=== PATIENT | male | born 1940 | race Caucasian/White ===

== ENCOUNTER → 2018-03-04 06:04 | Outpatient (CLI) | payer MEDICARE, SELFPAY ==
--- NOTE | 2018-03-04 08:54 | STRESSREP_ITS ---
Stress Test Report Date: 03/16/2018 Procedure: Exercise tolerance test/imaging study Indications: Chest pain; CAD; CABG; PCI Consent: Per the patient Procedure: The patient exercised on a Nicho protocol for 5 minutes completing Stage I and 2 minutes of Stage II achieving a peak heart rate of 146 bpm (101 % predicted maximal heart rate) with a peak blood pressure 204/88 mmHg and a peak MET capacity of 7 METs. The baseline ECG demonstrated on his bradycardia. The peak exercise ECG demonstrated approximately 1-[address] segment depression in leads II, III, aVF, and V4 through V6 with gradual resolution towards baseline in recovery. There was a rare PVC and ventricular couplet/triplet during exercise and a rare PAC during recovery. The functional capacity was considered average. There was vague left-sided chest discomfort with spontaneous resolution to baseline in recovery. The examination was discontinued secondary to dyspnea. Impression: 1. Technically adequate (percent predicted maximal heart rate greater than 85% ) exercise tolerance test 2. Peak exercise ECG demonstrated approximately 1-[address] segment depression in leads II, III, aVF, and V4 through V6 with gradual resolution towards baseline in recovery 3. There was a rare PVCs/ventricular couplet/triplet during exercise and a rare PAC during recovery 4. Nuclear images pending Myocardial perfusion imaging study: Technique: The patient was injected with 10.5 mCi of technetium 99m Cardiolite and subsequently rest SPECT Cardiolite nuclear imaging was obtained in the horizontal long, vertical long, and short axis views. The patient exercised on a Nicho protocol for 5 minutes completing Stage I and 2 minutes of Stage II achieving a peak heart rate of 146 bpm (101 % predicted maximal heart rate) with a peak blood pressure 204/88 mmHg and a peak MET capacity of 7 METs. The patient was injected with 31.8 mCi of technetium 99m Cardiolite and subsequently stress SPECT Cardiolite nuclear imaging was obtained in the horizontal long, vertical long, and short axis views. A gated Cardiolite study at peak stress was obtained. Interpretation: Rest and stress SPECT Cardiolite nuclear imaging status post realignment, normalization, and attenuation correction, demonstrates at rest relative uniform tracer uptake and status post stress the appearance of diminished tracer uptake in portions of the distal anterior and anteroapical segments as well as the basal to mid inferior segments. There are similar type findings on the resting and stress polar map images. There is end systolic thickening and brightening. The gated Cardiolite study demonstrates myocardial thickening and inward wall motion. The reported LVEF is 62 %. Impression: 1. Rest and stress SPECT Cardiolite nuclear imaging demonstrate myocardial perfusion changes concerning for stress-induced myocardial ischemia involving portions of the distal anterior and anteroapical segments as well as the basal to mid inferior segments. 2. The gated Cardiolite study reports an LVEF of 62%. This note was generated with EchoFirstation software. It may contain incorrect words, spelling, and punctuation that were not noted in checking the note before signing.
== END ==
PROVIDERS: Family Provider Family Medicine; PCP Family Medicine; Visit Provider Family Medicine
DX: I25.10 Atherosclerotic heart disease of native coronary artery without angina pectoris (principal)
CPT/HCPCS: 78452; 93017; A9500; A4216

== ENCOUNTER → 2018-03-18 08:20 | Outpatient (CLI) | payer MEDICARE, SELFPAY | PROVIDERS: Family Provider Family Medicine; PCP Family Medicine; Visit Provider Family Medicine | DX: R13.10 Dysphagia, unspecified (principal) | CPT/HCPCS: 74220 ==

== ENCOUNTER → 2018-04-14 07:27 | Outpatient (CLI) | payer MEDICARE, SELFPAY ==
--- NOTE | 2018-04-14 07:32 | ECHOD_ITS ---
Reason For Study: S/P CABG Procedure This was a 2D Doppler, Color Flow transthoracic echocardiogram. The study was technically difficult. Contrast injection was performed. Exam performed in department. Left Ventricle Normal LV size. Segmental dysfunction with preserved ejection fraction (see wall motion). The estimated ejection fraction is 60 %. No regional wall motion abnormalities noted. Right Ventricle Normal RV size. Normal systolic function. Atria Normal left atrium. Normal right atrium. No doppler evidence for ASD. Mitral Valve There is no mitral annular calcification. Normal mitral valve. Mild (1+) mitral valve insufficiency. Tricuspid Valve Normal tricuspid valve. Mild tricuspid valve insufficiency. Right ventricular systolic pressure estimated to be 25 mmHg. Aortic Valve Trisinus/trileaflet aortic valve. Normal aortic valve. Pulmonic Valve The pulmonic valve is not well visualized. Great Vessels Normal sized aortic root. Pericardium/Pleural No pericardial effusion. Medication 22 gauge I.V. with prn adaptor inserted into right arm. Diluted definity 5ml given slow IV push to enhance endocardial definition. MMode/2D Measurements & Calculations LVIDd: 5.0 cm IVSd: 0.82 cm Ao root diam: 3.1 cm LVIDs: 3.7 cm LVPWd: 0.91 cm LA dimension: 4.0 cm RVDd: 4.0 cm FS: 27.3 % LAV(MOD-bp): 52.1 ml LVAd ap4: 22.5 cm2 SV(MOD-sp4): 35.0 ml LAV(MOD-bp) Indexed: 26.7 ml/m2 EDV(MOD-sp4): 57.3 ml LAV(MOD-sp2): 65.7 ml EDV(sp4-el): 57.1 ml LAV(MOD-sp4): 39.8 ml LVAs ap4: 11.6 cm2 ESV(MOD-sp4): 22.3 ml ESV(sp4-el): 21.9 ml EF(MOD-sp4): 61.1 % EF(sp4-el): 61.7 % SV(sp4-el): 35.2 ml LA A4 area: 16.6 cm2 RA A4 area: 13.6 cm2 Time Measurements MV dec time: 0.33 sec Doppler Measurements & Calculations MV E max alex: 76.3 cm/sec Lat Peak E' Alex: 9.7 cm/sec Med Peak E' Alex: 6.5 cm/sec MV A max alex: 53.3 cm/sec E/E' lat: 7.8 E/E' med: 11.8 MV E/A: 1.4 Ao V2 max: 112.9 cm/sec LV V1 max: 93.2 cm/sec PA V2 max: 100.0 cm/sec Ao max P.1 mmHg LV V1 max P.5 mmHg TR max alex: 234.8 cm/sec TR max P.1 mmHg Interpretation Summary The study was technically difficult. Contrast injection was performed. Segmental dysfunction with preserved ejection fraction (see wall motion). The estimated ejection fraction is 60 %. Mild (1+) mitral valve insufficiency. Mild tricuspid valve insufficiency. Right ventricular systolic pressure estimated to be 25 mmHg. Transmitral diastolic flow velocities suggest diastolic dysfunction (pseudonormal pattern). Ordering Physician: Isaiah Robert Referring Physician: OSCAR CALDWELL Performed By: Celine Arango, ANDREA, RVT
== END ==
PROVIDERS: Family Provider Family Medicine; PCP Family Medicine; Visit Provider Internal Medicine Cardiovascular Disease
DX: I34.0 Nonrheumatic mitral (valve) insufficiency (principal); Z95.1 Presence of aortocoronary bypass graft
CPT/HCPCS: 93306; Q9957; A4216; C8929

== ENCOUNTER → 2018-04-23 11:26 | Outpatient (CLI) | payer MEDICARE, SELFPAY ==
[2018-04-23 14:23] LABS: Absolute Lymphocyte Count 1.52 X10^3/ul (0.83-4.51); Absolute Neutrophil Count 3.4 X10^3/uL (2.0-7.7); Basophil# 0.04 X10^3/uL; Basophil% 0.7 % (0-1); Eosinophil# 0.41 X10^3/uL; Eosinophils% 6.9 % (0-5); Hematocrit 41.4 % (40-54); Hemoglobin 14.4 g/dl (13.0-16.5); Lymphocyte # 1.52 X10^3/ul (4.0); Lymphocyte % 25.8 % (19-41); Mean Corp Hgb Conc 34.8 g/gl (32-36); Mean Corpuscular Hgb 30.8 pg (27.0-32.0); Mean Corpuscular Volume 88.7 fL (80-94); Mean Platelet Vol. 8.5 fl (6.2-12.0); Monocyte# 0.53 X10^3/uL; Neutrophil # 3.39 X10^3/uL (2.7-7.7); Neutrophil % 57.4 % (47-70); Platelet Count 152 K/mm3 (150-450); RBC Distribution Width CV 13.4 % (11.6-14.6); RBC Distribution Width SD 43.3 fl (35.1-43.9); Red Blood Count 4.67 M/mm3 (4.6-6.2); White Blood Count 5.9 K/mm3 (4.4-11.0)
[2018-04-23 14:25] LABS: POSITIVE COUNT NO; POSITIVE DIFFERENTIAL NO; POSITIVE MORPHOLOGY NO
[2018-04-23 14:54] LABS: ALB/GLOB Ratio 1.2 RATIO (0.9-2.4); AST(SGOT) 18 U/L (15-37); Alanine Aminotransfer ALT/SGPT 24 U/L (16-61); Albumin, Serum 3.9 g/dL (3.2-5.0); Alkaline Phosphatase 73 U/L (45-117); Anion Gap 4 (5-15); BUN 12 mg/dL (7-18); BUN/Creat Ratio 12.7 RATIO (10-20); Calcium,Total 8.6 mg/dL (8.5-10.1); Chloride 109 mmol/L (98-107); Cholesterol 120 mg/dL (200); Creatinine, Serum 0.94 mg/dL (0.70-1.30); EST Glomerular Filtration Rate 83 mL/min (>60); Est Glom Filt Rate - Afr Amer 100 mL/min (>60); Globulin 3.3 g/dL (2.2-4.2); Glucose 91 mg/dL (74-106); High Density Lipoprotein 42 mg/dL; Potassium 4.2 mmol/L (3.5-5.1); Protein, Total 7.2 g/dL (6.4-8.2); Sodium Level 140 mmol/L (136-145); T4 Free Direct 1.23 ng/dL (0.76-1.46); Triglycerides 113 mg/dL; Very Low Density Lipoprotein 23 mg/dL (5-40)
== END ==
PROVIDERS: Family Provider Family Medicine; PCP Family Medicine; Visit Provider Family Medicine
DX: E03.9 Hypothyroidism, unspecified (principal); I25.10 Atherosclerotic heart disease of native coronary artery without angina pectoris
CPT/HCPCS: 36415; 80053; 80061; 84439; 84443; 85025

== ENCOUNTER → 2018-04-27 08:30 | Outpatient (CLI) | payer MEDICARE, SELFPAY ==
[2018-04-27 17:24] LABS: Cytology, Body Fluid / CSF SEE PATHOLOGY REPORT
--- NOTE | 2018-04-28 | CYSPIN_PTH ---
PATIENT: COLLEEN HILL [facility] U#:[id number] AGE/SX: 85/M ROOM: RE04/27/[address]: Dr. Erasto Murphy MD : 1940 BED: DIS: SPEC #: [id number] RECD: 04/28/18 13:44 STATUS: VESTA KIAN #: [id number] KALEE: 04/28/18 00:[address]: Erasto Murphy DEPT: CYTOLOGY RECD BY: Melo James ENTERED: 04/28/18 13:45 SP TYPE: CYSPIN FL OTHR DR: Dr. Tl Guzman MD Tissues: Urine Procedures: Pap Stain (control) Special Stain Group II Cytospin Fluid HEADER OPERATION: Not noted PRE-OP DIAGNOSIS: History bladder CA, hematuria TISSUE SUBMITTED: Urine for cytology DIAGNOSIS CYTOLOGY Urine for cytology (cytospin): Rare degenerated atypical cells noted. Marked acute inflammation. SJ:irene 04/29/18 COMMENT Repeat cytology is suggested if clinically indicated. 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 CYTOLOGY STUDY Slides are reviewed. CYTOLOGY GROSS Received is 40 ml of gold cloudy fluid labeled with the patient's name and and designated per the requisition as urine. Submitted for cytology preparation. / 04/28/18 TC:2 CPT: 98075
== END ==
PROVIDERS: Family Provider Family Medicine; PCP Family Medicine; Referring Provider Urology; Visit Provider Urology
DX: R31.9 Hematuria, unspecified (principal); Z85.51 Personal history of malignant neoplasm of bladder
CPT/HCPCS: 88108; 88313

== ENCOUNTER → 2018-06-17 15:01 | Outpatient (CLI) | payer MEDICARE, SELFPAY ==
[2018-06-17 13:47] VITALS: BMI 24.8
--- NOTE | 2018-06-17 15:05 | RAD_ITS ---
STUDY: X-RAY CHEST REASON FOR EXAM: Male, 78 years old. Heart catheterization next week TECHNIQUE: PA and lateral views of the chest. COMPARISON: 02/24/2016 FINDINGS: The lungs are clear and expanded. There is no demonstrated pleural abnormality. Normal size heart. Sternal wires and mediastinal surgical clips compatible with prior CABG. Normal mediastinum and francia. Normal visualized pulmonary arteries. Normal visualized aortic arch and descending thoracic aorta. Normal visualized thoracic spine. Normal visualized ribs, clavicles, and shoulders. There is no demonstrated abnormality of the visualized soft tissue structures of the upper abdomen. RAD/Chest PA and Lateral IMPRESSION: Stable exam. No acute cardiopulmonary process. Electronically Signed: Clyde Mckinney MD at 9:02 EST , Service support ,
== END ==
PROVIDERS: Family Provider Family Medicine; PCP Family Medicine; Referring Provider Internal Medicine Cardiovascular Disease; Visit Provider Internal Medicine Cardiovascular Disease
DX: R07.9 Chest pain, unspecified (principal); R94.39 Abnormal result of other cardiovascular function study; I25.10 Atherosclerotic heart disease of native coronary artery without angina pectoris; Z95.1 Presence of aortocoronary bypass graft; Z95.5 Presence of coronary angioplasty implant and graft
CPT/HCPCS: 71046

== ENCOUNTER 2018-06-26 07:27 | Day surgery (SDC) | payer MEDICARE, SELFPAY ==
[2018-06-17 13:47] VITALS: BMI 24.8
[2018-06-17 16:49] LABS: Hematocrit 40.5 % (40-54); Hemoglobin 14.7 g/dl (13.0-16.5); Mean Corp Hgb Conc 36.3 g/gl (32-36); Mean Corpuscular Hgb 31.9 pg (27.0-32.0); Mean Corpuscular Volume 87.9 fL (80-94); Mean Platelet Vol. 8.8 fl (6.2-12.0); Platelet Count 177 K/mm3 (150-450); RBC Distribution Width CV 13.5 % (11.6-14.6); RBC Distribution Width SD 41.7 fl (35.1-43.9); Red Blood Count 4.61 M/mm3 (4.6-6.2); White Blood Count 7.3 K/mm3 (4.4-11.0)
[2018-06-17 16:51] LABS: Scan Indicated on CBC? Y/N NO
[2018-06-17 17:03] LABS: International Normalized Ratio 1.1; Prothrombin Time (Protime)PT. 13.8 SECONDS (11.7-14.9)
[2018-06-17 17:04] LABS: Partial Thromboplast Time 29.7 Seconds (24.1-36.2)
[2018-06-17 17:30] LABS: Anion Gap 8 (5-15); BUN 12 mg/dL (7-18); BUN/Creat Ratio 13.3 RATIO (10-20); Calcium,Total 8.6 mg/dL (8.5-10.1); Chloride 108 mmol/L (98-107); EST Glomerular Filtration Rate 87 mL/min (>60); Est Glom Filt Rate - Afr Amer 105 mL/min (>60); Glucose 81 mg/dL (74-106); Potassium 3.9 mmol/L (3.5-5.1); Sodium Level 143 mmol/L (136-145)
[2018-06-25 07:25] VITALS: BMI 24.8
[2018-06-26] VITALS (18 sets, daily range): BP systolic 130–190; BP diastolic 65–88; PULSE 48–59; RESP 13–23; TEMP 36.6–36.9; O2SAT 97–100; BMI 24.6
--- NOTE | 2018-06-26 11:30 | EKG12_ITS ---
Test Reason : POST PCI Blood Pressure : / mmHG Vent. Rate : 054 BPM Atrial Rate : 054 BPM P-R Int : 156 ms QRS Dur : 090 ms QT Int : 448 ms P-R-T Axes : 061 -17 024 degrees QTc Int : 424 ms Sinus bradycardia Otherwise normal ECG Confirmed by KIRBY TRIVEDI, ISAIAH ([id number]), multimedia editor RYAN AYERS ([id number]) on 07/02/2018 3:13:05 PM Referred By: Isaiah Orr Confirmed By:ISAIAH ORR MD
[2018-06-26 11:36] LABS: ACT Activated Clotting Time 224 sec (74-137)
[2018-06-26 11:36] LABS: ACT Activated Clotting Time 219 sec (74-137)
--- NOTE | 2018-06-26 11:44 | CL.I_ITS ---
Patient Name: COLLEEN HILL Study Date: 06/26/2018 Performing: Jian Mccracken MD Ht: 70.07 inches 178 cm : 1940 Wt: 171.96 lbs 78 kg Age: 78 Gender: male BSA: 1.96 PROCEDURE(S) PERFORMED [id number] W OR WO PTCA, SINGLE CORONARY ARTERY CLINICAL PROFILE AND CO-MORBIDITIES Heart Failure: None Stress/Imaging Stress Test w/SPECT MPI: Yes Result: Positive High Risk Stress Test with SPECT MPI : Positive High Risk Angina Classification Anginal Classification w/in 2 Weeks: CCS III CAD Presentations: Stable angina. CONCLUSIONS Succesful CHANDAN Mid D1 using Resolute Integrity 2.25x18 mm RECOMMENDATIONS ASA Indefinitley Plavix for at least 12 months INTERVENTION INFORMATION LESION SITE: 1st Diagonal (Mid) Lesion Complexity: Non-High/Non-C Pre Stenosis: 90 % Pre intervention MERLYN flow: 3 Post Stenosis: 0 % Post intervention MERLYN flow: 3 Lesion Devices: Cordis 6 Fr XB3.5 100cm Guide Catheter Terumo .014 Runthrough Extra Floppy 180cm straight Medtronic Resolute RX CHANDAN 2.25x18 Daniel Sci NC EMERGE MR 2.25x15 BALLOON COMPLICATIONS No Complications PROCEDURE MEDICATIONS Versed 1 mg IV Versed 1 mg IV Oxygen: 2 L/min via nasal cannula Heparin 6000 unit(s) IV 06/26/2018 11:02:31 Heparin 2000 unit(s) IV 06/26/2018 11:08:57 Plavix 300 mg PO 06/26/2018 11:29:56 SUMMARY OF HEMODYNAMIC DATA Time AIR REST ECG 07:49:22 AO 157/54 (95) SA 10:00:43 LV 138/-1, 18 10:25:58 LV 137/-1, 18 10:26:04 LV 147/0, 21 10:28:45 LVp 147/-8, 15 10:29:16 AOp 151/58 (94) 10:29:22 AO 131/50 (79) 10:29:34 Signed By Jian Mccracken MD On 06/26/2018 11:43:26 Jian Mccracken MD
[2018-06-26] MEDS: 0.9% Normal Saline 1,000 ML 100 ML IV (12:12)
--- NOTE | 2018-06-26 12:14 | NURSING ---
BEDSCALE NOT WORKING PROPERLY
[2018-06-26] MEDS: Ramipril 10 MG Capsule PO (13:36)
--- NOTE | 2018-06-26 13:56 | CRPHASE1 ---
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 Risk Factors/Lifestyle Smoking Status: Former smoker Hx Hypertension: Yes Hx Diabetes Mellitus Type 1: No Hx Diabetes Mellitus Type 2: No Hx Metabolic Disorders: No Hx Dyslipidemia: Yes Hx Obesity: No Height: 5 ft 10 in - BMI 24.7 Stress: Home/Family Risk Factor for Sedentary Lifestyle: Moderate Risk Family History: Family History (Last Reviewed 03/25/18 @ 13:55 by Angélica Howard) Father CAD (coronary artery disease) Myocardial infarction, Onset Age: 56 Grandmother Heart disease Uncle Heart disease Past Cardiac Illness: Coronary Artery Disease, Previous PCI w/Stent, Coronary Artery Bypass Graft Phase I Education Given On:: [place], Nutrition, Antiplatelet medication Issues Affecting Care:: None Knowledge of Condition:: Yes Learning Preferences: Verbal, Written Hospital Course Presenting Symptoms:: CHEST PAIN Medical/Surgical History WI:: No CAD:: Yes Cardiomyopathy:: No Diabetes:: No Hypertension:: Yes Dyslipidemia:: Yes Thyroid:: Yes - HYPOTHYROIDISM Other Medical/Surgical Issues:: BLADDER CANCER CABG: Yes PTCA:: Yes Discharge/Home/Social Eval Discharge Disposition: Home
--- NOTE | 2018-06-26 13:59 | CRPHASE1_ITS ---
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 Risk Factors/Lifestyle Smoking Status: Former smoker Hx Hypertension: Yes Hx Diabetes Mellitus Type 1: No Hx Diabetes Mellitus Type 2: No Hx Metabolic Disorders: No Hx Dyslipidemia: Yes Hx Obesity: No Height: 5 ft 10 in - BMI 24.7 Stress: Home/Family Risk Factor for Sedentary Lifestyle: Moderate Risk Family History: Family History (Last Reviewed 03/25/18 @ 13:55 by Angélica Howard) Father CAD (coronary artery disease) Myocardial infarction, Onset Age: 56 Grandmother Heart disease Uncle Heart disease Past Cardiac Illness: Coronary Artery Disease, Previous PCI w/Stent, Coronary Artery Bypass Graft Phase I Education Given On:: [place], Nutrition, Antiplatelet medication Issues Affecting Care:: None Knowledge of Condition:: Yes Learning Preferences: Verbal, Written Hospital Course Presenting Symptoms:: CHEST PAIN Medical/Surgical History HI:: No CAD:: Yes Cardiomyopathy:: No Diabetes:: No Hypertension:: Yes Dyslipidemia:: Yes Thyroid:: Yes - HYPOTHYROIDISM Other Medical/Surgical Issues:: BLADDER CANCER CABG: Yes PTCA:: Yes Discharge/Home/Social Eval Discharge Disposition: Home
--- NOTE | 2018-06-26 14:00 | CRPH1.INST_ITS ---
General Education CAD and cardiac anatomy and function:: Patient communicates acknowledgment Explanation of diagnoses and procedures:: Patient communicates acknowledgment Sign/Symptoms of VA:: Patient communicates acknowledgment Antiplatelet therapy: Patient communicates acknowledgment Proper use of NTG-SL: Not instructed Emergency procedures and activation of EMS: Patient communicates acknowledgment Compliance of all prescribed medications: Patient communicates acknowledgment Smoking Recommendations Include:: Previous smoker; encourage continued cessation Nicotine/Smoking Response Code:: Patient communicates acknowledgment Dyslipidemia Patient Dyslipidemia Risk Factors Are:: Total Cholesterol, Triglycerides, HDL, LDL Recommendations Include:: Lipid profile provided, Reviewed NCEP/ATP guidelines, Therapeutic Lifestyle Change dietary guidelines Dyslipidemia Response Code:: Patient communicates acknowledgment Overweight/Obesity Patient Overweight/Obesity Risk Factors Are:: BMI Normal [18-25 & < 65 years old] Hypertension Recommendations Include:: Maintain BP <130/85, DASH dietary guidelines, Decrease/maintain normal body weight, Moderation of ETOH Hypertension:: Patient communicates acknowledgment Heart Disease Patient Heart Disease Risk Factors Are:: Previous cardiac event Heart Disease Response Code:: Patient communicates acknowledgment Diabetes Patient Diabetes Risk Factors Are:: No documented hx of diabetes Metabolic Syndrome Recommendations Include:: Does not meet criteria Sedentary Patient Sedentary Risk Factors Are:: Lack of regular exercise Recommendations Include:: Aerobic exercise 5-7 times/week for 20-30 minutes continuously, Benefits of regular exercise, Discussed home walking program, Mo nitored Outpatient Cardiac Rehab Sedentary Response Code:: Patient communicates acknowledgment Stress Recommendations Include:: Identification of stressors, and assessment of coping skills, Stress management techniques Stress Response Code:: Patient communicates acknowledgment
--- NOTE | 2018-06-26 15:27 | CL.D_ITS ---
Patient Name: COLLEEN HILL Study Date: 06/26/2018 Performing: Isaiah Robert MD Ht: 70 inches 178 cm : 1940 Wt: 172.2 lbs 78 kg Age: 78 Gender: male BSA: 1.96 PROCEDURE(S) PERFORMED ZH50-VZM/COR/LV/CABG [id number] W OR WO PTCA, SINGLE CORONARY ARTERY CLINICAL PROFILE AND INDICATIONS Indications: Suspected CAD Heart Failure: None Stress/Imaging Stress Test w/SPECT MPI: Yes Result: Positive High RiskStress Test with SPECT MPI: Positive High Risk Angina Classification Anginal Classification w/in 2 Weeks: CCS III CAD Presentations: Stable angina. Stable angina. CONCLUSIONS Elevated Left Ventricular End Diastolic Pressure Segmented LV systolic dysfunction- Mild LVEF: by LV gram 55 % [place] Multivessel CAD SLOAN to LAD: patent SVG to DX: occluded SVG to RCA: occluded RECOMMENDATIONS Risk factor modification Medical therapy Referred for immediate PCI DESCRIPTION OF PROCEDURE The patient arrived to the procedure lab. The risks and benefits of the procedure as well as a full d escription of our services here and current unavailability of surgical backup were fully explained to the patient and/or their significant other prior to the catheterization. The Timeout was completed, verifying the correct patient and procedure. The patient's procedural site was prepped and draped in the usual fashion. Local anesthetic was given subcutaneously to right groin region with Lidocaine 2%. Using a modified Seldinger technique, arterial access was obtained via the right femoral artery, a 4 Fr sheath was inserted Left Coronary Artery selective angiography was performed in multiple views us ing a 4 Fr. JL4 catheter. Right Coronary Artery selective angiography was then performed in multiple views using a 4 Fr. JR4 catheter. Left internal mammary artery graft to the LAD selective angiography was performed in multiple views using a 4 Fr. JR4 catheter. Left Ventriculography was performed in CLARK projection using a 4 Fr. Pigtail catheter. LV to AO pullback pressures were then rec orded.Contrast was injected through the sheath and the Right Iliac and Femoral artery were assessed f or possible closure device.The arterial sheath was pulled and a Perclose closure device was deployed for hemostasis CORONARY ANGIOGRAPHY DOMINANCE: Right Dominant LEFT HEART ASSESSMENT Left Ventricular Ejection Fraction: by LV Gram 55 % Inferior Basal Hypokinesis Elevated Left Ventricular End Diastolic Pressure LVEDP: 18 mmHg LEFT MAIN: Mild luminal irregularities, Distal: 25 % Stenosis LEFT ANTERIOR DECENDING ARTERY: MID LAD: is occluded DIAGONAL 1: Proximal - Mild luminal irregularities, Mid - 85 % Stenosis CIRCUMFLEX ARTERY: PROX CIRC: Mild luminal irregularities OM 1: Proximal - Mild luminal irregularities RIGHT CORONARY ARTERY: PROX RCA: Previously placed stent is occluded DISTAL RCA: Fills from Bridging Collaterals and Left to Right Collaterals GRAFTS: SLOAN graft to the Mid LAD is patent Saphenous Vein graft to the 1st Diagonal is totally occluded Saphenous Vein graft to the RCA is totally occluded COLLATERAL FLOW: Collateral flow from Right to Right Collateral flow from Left to Right VALVE FINDINGS: Normal Aortic Valve function Normal Mitral Valve function AORTIC ROOT: Angiographically normal COMPLICATIONS No Complications PROCEDURE MEDICATIONS Versed 1 mg IV Versed 1 mg IV Oxygen: 2 L/min via nasal cannula Heparin 6000 unit(s) IV 06/26/2018 11:02:31 Heparin 2000 unit(s) IV 06/26/2018 11:08:57 Plavix 300 mg PO 06/26/2018 11:29:56 SUMMARY OF HEMODYNAMIC DATA Time AIR REST ECG 07:49:22 AO 157/54 (95) SA 10:00:43 LV 138/-1, 18 10:25:58 LV 137/-1, 18 10:26:04 LV 147/0, 21 10:28:45 LVp 147/-8, 15 10:29:16 AOp 151/58 (94) 10:29:22 AO 131/50 (79) 10:29:34 Signed By Isaiah Robert MD On 06/26/2018 15:27:22 Isaiah Robert MD
--- NOTE | 2018-06-26 17:02 | NURSING ---
held pressure on right groin site for 20 minutes patient tolerated well new dressing applied
[2018-06-26] MEDS: Atorvastatin Calcium 10 MG Tablet PO (21:16)
[2018-06-27] VITALS (13 sets, daily range): BP systolic 149–175; BP diastolic 58–89; PULSE 52–78; RESP 13–21; TEMP 36.6–36.7; O2SAT 93–99
[2018-06-27 05:11] LABS: Hematocrit 38.5 % (40-54); Hemoglobin 13.9 g/dl (13.0-16.5)
[2018-06-27 05:32] LABS: Anion Gap 8 (5-15); BUN 10 mg/dL (7-18); BUN/Creat Ratio 10.5 RATIO (10-20); Calcium,Total 8.4 mg/dL (8.5-10.1); Chloride 111 mmol/L (98-107); Creatinine, Serum 0.96 mg/dL (0.70-1.30); EST Glomerular Filtration Rate 81 mL/min (>60); Est Glom Filt Rate - Afr Amer 98 mL/min (>60); Estimated Creatinine Clearance 66.54 ml/min; Glucose 94 mg/dL (74-106); Potassium 4.1 mmol/L (3.5-5.1); Sodium Level 143 mmol/L (136-145)
[2018-06-27] MEDS: Levothyroxine 100 MCG Tablet PO (05:51)
--- NOTE | 2018-06-27 09:21 | PCM.DC ---
- Discharge Diagnoses Current Active Problems: CAD s/p remote CABG s/p remote PCI s/p recent PCI Reason(s) for Visit for Discharge Instructions: Cardiac catheterization and PCI You will use the following diet at home:: Cardiac Your food should be the consistency of: Regular Discharge Activity: May Not Drive - May Not Drive: x 48 hours, May Shower May resume sexual activity in: 2 weeks Weight Bearing Status: - - Avoid heavy exertional activity x 7 days and then resume activity as tolerated Call your doctor if your incision/area has: Continuous Slow Oozing, Sudden Increased Bleeding, Increased Redness, Foul Smelling Discharge, Swelling at the incision site Call your doctor if you observe: Fever of 101 or Higher, Shortness of breath, Dizziness, Fainting spells, Chest pain, Increased palpitations (irregular heartbeat) Change Dressing in (Days):: 1 Cleanse incision/area with: Soap & Water Additional Instructions: Stop Simvastatin when Atorvastatin arrives and then start Atorvastatin. Change Ramapril to 10 mg by mouth twice a day Allergies/Adverse Reactions: Allergies No Known Allergies Allergy (Verified 06/17/18 13:48) Medications to take at Discharge Levothyroxine [Synthroid] 100 mcg PO DAILY 02/24/16 Isosorbide Mononitrate [Isosorbide Mononitrate ER] 30 mg PO DAILY 11/03/16 Metoprolol Succinate [Toprol Xl] 50 mg PO QHS 11/03/16 aspirin 81 mg tablet,delayed release 81 mg PO QDAY 03/18/18 desonide 0.05 % lotion 1 applic TOPICAL BID PRN 03/18/18 clopidogrel 75 mg tablet 75 mg PO DAILY #30 tab 06/17/18 Aspirin E.C. [Ecotrin] 81 mg PO DAILY@0800 tablet 06/27/18 Atorvastatin Calcium [Lipitor] 40 mg PO QHS #90 tablet 06/27/18 Clopidogrel Bisulfate [Plavix] 75 mg PO DAILY tablet 06/27/18 Ramipril [Altace] 10 mg PO BID #180 capsule 06/27/18 The following prescriptions were given: Atorvastatin Calcium [Lipitor] 40 mg PO QHS #90 tablet Ramipril [Altace] 10 mg PO BID #180 capsule Primary Care Physician: Robson Guzman MD [Primary Care Provider] - Test Results: Test results from this visit will be discussed in further detail at your follow-up appointment, if applicable. Please Follow Up With: Isaiah Robert MD When: [facility] to arrange the follow up appointment
--- NOTE | 2018-06-27 09:31 | DCINST_ITS ---
- Discharge Diagnoses Current Active Problems: CAD s/p remote CABG s/p remote PCI s/p recent PCI Reason(s) for Visit for Discharge Instructions: Cardiac catheterization and PCI You will use the following diet at home:: Cardiac Your food should be the consistency of: Regular Discharge Activity: May Not Drive - May Not Drive: x 48 hours, May Shower May resume sexual activity in: 2 weeks Weight Bearing Status: - - Avoid heavy exertional activity x 7 days and then resume activity as tolerated Call your doctor if your incision/area has: Continuous Slow Oozing, Sudden In creased Bleeding, Increased Redness, Foul Smelling Discharge, Swelling at the incision site Call your doctor if you observe: Fever of 101 or Higher, Shortness of breath, Dizziness, Fainting spells, Chest pain, Increased palpitations (irregular heartbeat) Change Dressing in (Days):: 1 Cleanse incision/area with: Soap & Water Additional Instructions: Stop Simvastatin when Atorvastatin arrives and then start Atorvastatin. Change Ramapril to 10 mg by mouth twice a day Allergies/Adverse Reactions: Allergies No Known Allergies Allergy (Verified 06/17/18 13:48) Medications to take at Discharge Levothyroxine [Synthroid] 100 mcg PO DAILY 02/24/16 Isosorbide Mononitrate [Isosorbide Mononitrate ER] 30 mg PO DAILY 11/03/16 Metoprolol Succinate [Toprol Xl] 50 mg PO QHS 11/03/16 aspirin 81 mg tablet,delayed release 81 mg PO QDAY 03/18/18 desonide 0.05 % lotion 1 applic TOPICAL BID PRN 03/18/18 clopidogrel 75 mg tablet 75 mg PO DAILY #30 tab 06/17/18 Aspirin E.C. [Ecotrin] 81 mg PO DAILY@0800 tablet 06/27/18 Atorvastatin Calcium [Lipitor] 40 mg PO QHS #90 tablet 06/27/18 Clopidogrel Bisulfate [Plavix] 75 mg PO DAILY tablet 06/27/18 Ramipril [Altace] 10 mg PO BID #180 capsule 06/27/18 The following prescriptions were given: Atorvastatin Calcium [Lipitor] 40 mg PO QHS #90 tablet Ramipril [Altace] 10 mg PO BID #180 capsule Primary Care Physician: Robson Guzman MD [Primary Care Provider] - Test Results: Test results from this visit will be discussed in further detail at your follow- up appointment, if applicable. Please Follow Up With: Isaiah Robert MD When: [facility] to arrange the follow up appointment
--- NOTE | 2018-06-27 09:39 | DS.PCM_ITS ---
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 He underwent cardiac catheterization on 06/26/18 which subsequently lead to additional PCI/stent of the diagonal branch system (please see official report). He was monitored overnight in the ICU. He remain symptomatically and hemodynamically stable with no new acute changes in labs, cardiac rhythm, or ECG. on 06/27/18 he was considered stable for discharge home for continued outpatient follow up. [] Subjective: This is a 78 yo white male who appears to be resting comfortably at this time. - Physical Exam General: Alert, Oriented x3, Cooperative, No apparent distress HEENT: Atraumatic, PERRLA, EOMI, Normocephalic Oral: Moist Mucosa Neck: Supple, No JVD Lungs: Clear to auscultation Cardiovascular: Regular Rhythm, Normal S1, Normal S2 Abdomen: Bowel Sounds Present, Soft, Non Tender Extremities: No clubbing, No cyanosis, No edema Neurological: Neuro grossly intact Psych/Mental Status: Normal Affect Vital Signs Temp Pulse Resp BP Pulse Ox 98.0 F 59 L 20 H 156/75 H 99 06/27/18 09:00 06/27/18 09:00 06/27/18 09:00 06/27/18 09:00 06/27/18 09:00 Oxygen Delivery Method Room Air Weight: 170 lb 6.677 oz Body Mass Index (BMI) 24.6 Intake and Output for Last 24 Hours 06/25/18 06/26/18 06/27/18 23:59 23:59 23:59 Intake Total 1029 / 1029 871 / 871 Output Total 600 / 600 1400 / 1400 Balance 429 / 429 -529 / -529 Laboratory Tests Past 24 Hrs 06/26/18 06/26/18 06/27/18 11:04 11:25 04:45 Hgb 13.9 Hct 38.5 L Activated Clotting Time 224 H 219 H Sodium Potassium Chloride Carbon Dioxide Anion Gap BUN Creatinine Estim Creat Clear Calc Est GFR (MDRD) Af Amer Est GFR (MDRD) Non-Af BUN/Creatinine Ratio Glucose Calcium 06/27/18 04:45 Hgb Hct Activated Clotting Time Sodium 143 Potassium 4.1 Chloride 111 H Carbon Dioxide 24.0 Anion Gap 8 BUN 10 Creatinine 0.96 Estim Creat Clear Calc 66.54 Est GFR (MDRD) Af Amer 98 Est GFR (MDRD) Non-Af 81 BUN/Creatinine Ratio 10.5 Glucose 94 Calcium 8.4 L Discharge Diet: - - Cardiac Diet Discharge Activity: May Not Drive - May Not Drive: x 48 hours, May Shower May resume sexual activity in: 2 weeks Weight Bearing Status: - - Avoid heavy exertional activity x 7 days and then resume activity as tolerated Call your doctor if your incision/area has: Continuous Slow Oozing, Sudden Increased Bleeding, Increased Redness, Foul Smelling Discharge, Swelling at the incision site Call your doctor if you observe: Fever of 101 or Higher, Shortness of breath, Dizziness, Fainting spells, Chest pain, Increased palpitations (irregular heartbeat) Change Dressing in (Days):: 1 Cleanse incision/area with: Soap & Water Home Medications: Medications to take at Discharge Levothyroxine [Synthroid] 100 mcg PO DAILY 02/24/16 Isosorbide Mononitrate [Isosorbide Mononitrate ER] 30 mg PO DAILY 11/03/16 Metoprolol Succinate [Toprol Xl] 50 mg PO QHS 11/03/16 aspirin 81 mg tablet,delayed release 81 mg PO QDAY 03/18/18 desonide 0.05 % lotion 1 applic TOPICAL BID PRN 03/18/18 clopidogrel 75 mg tablet 75 mg PO DAILY #30 tab 06/17/18 Aspirin E.C. [Ecotrin] 81 mg PO DAILY@0800 tablet 06/27/18 Atorvastatin Calcium [Lipitor] 40 mg PO QHS #90 tablet 06/27/18 Clopidogrel Bisulfate [Plavix] 75 mg PO DAILY tablet 06/27/18 Ramipril [Altace] 10 mg PO BID #180 capsule 06/27/18 Following Prescrptions Were Given to Patient: Atorvastatin Calcium [Lipitor] 40 mg PO QHS #90 tablet Ramipril [Altace] 10 mg PO BID #180 capsule Primary Care Physician: Robson Guzman MD [Primary Care Provider] - Please Follow Up With: Isaiah Robert MD When: [facility] to arrange the follow up appointment Minutes spent on discharge:: 30 Patient Condition:: Stable Medical Necessity - Tobacco Use Smoking Status: Former smoker Tobacco Use: Non-smoker Meaningful Use Info Meaningful Use Diagnoses (Choose all that apply): None applicable
[2018-06-27] MEDS: Ramipril 10 MG Capsule PO (09:46)
[2018-06-27] MEDS: Clopidogrel Bisulfate 75 MG Tablet PO (09:46)
[2018-06-27] MEDS: Isosorbide Mononitrate 30 MG Tablet PO (09:46)
[2018-06-27] MEDS: Aspirin E.C. 81 MG Tablet PO (09:46)
--- NOTE | 2018-06-27 10:00 | EKG12_ITS ---
Test Reason : AM Blood Pressure : / mmHG Vent. Rate : 055 BPM Atrial Rate : 055 BPM P-R Int : 150 ms QRS Dur : 084 ms QT Int : 466 ms P-R-T Axes : 051 -18 037 degrees QTc Int : 445 ms Sinus bradycardia Otherwise normal ECG Confirmed by KIRBY TRIVEDI, ISAIAH ([id number]), assignment editor RYAN AYERS ([id number]) on 07/02/2018 3:02:25 PM Referred By: Isaiah Orr Confirmed By:ISAIAH ORR MD
--- OUTSIDE RECORDS SUMMARY | 2018-08-21 01:15 | XMS RPT_ITS ---
:1940 Author Organization OHIP Support Name Relationship Address Phone CHALOXOCHITLNOMANANGELIKA Unavailable [address] + [place] [address] CROFTCHECK, SHAREE Unavailable [address] + [place] [address] R Unavailable Unavailable Unavailable ANGELIKA RANDOLPH Unavailable [address] + [place] [address] CROFTCHECK, SHAREE Unavailable [address] + [place] [address] R Unavailable Unavailable Unavailable ANGELIKA RANDOLPH Unavailable [address] + [place] [address] CROFTCHECK, SHAREE Unavailable [address] + [place] [address] R Unavailable Unavailable Unavailable ANGELIKA RANDOLPH Unavailable [address] + [place] [address] CROFTCHECK, SHAREE Unavailable [address] + [place] [address] R Unavailable Unavailable Unavailable ANGELIKA RANDOLPH Unavailable [address] + [place] [address] CROFTCHECK, SHAREE Unavailable [address] + [place] [address] R Unavailable Unavailable Unavailable ANGELIKA RANDOLPH Unavailable [address] + [place] [address] CROFTCHECK, SHAREE Unavailable [address] + [place] [address] R Unavailable Unavailable Unavailable ANGELIKA RANDOLPH Unavailable [address] + [place] [address] CHALOFTCHECK, SHAREE Unavailable [address] + [place] [address] R Unavailable Unavailable Unavailable ANGELIKA RANDOLPH Unavailable [address] + [place] [address] CROFTCHECK, SHAREE Unavailable [address] + [place] [address] R Unavailable Unavailable Unavailable ANGELIKA RANDOLPH Unavailable [address] + [place] [address] CROFTCHECK, SHAREE Unavailable [address] + [place] [address] R Unavailable Unavailable Unavailable ANGELIKA RANDOLPH Unavailable [address] + [place] [address] CROFTCHECK, SHAREE Unavailable [address] + [place] [address] R Unavailable Unavailable Unavailable ANGELIKA RANDOLPH Unavailable [address] + [place] [address] CROFTCHECK, SHAREE Unavailable [address] + [place] [address] R Unavailable Unavailable Unavailable ANGELIKA RANDOLPH Unavailable [address] + [place] [address] CROFTCHECK, SHAREE Unavailable [address] + [place] [address] R Unavailable Unavailable Unavailable ANGELIKA RANDOLPH Unavailable [address] + [place] [address] CROFTCHECK, SHAREE Unavailable [address] + [place] [address] R Unavailable Unavailable Unavailable ANGELIKA RANDOLPH Unavailable [address] + [place] [address] CROFTCHECK, SHAREE Unavailable [address] + [place] [address] R Unavailable Unavailable Unavailable DANI RANDOLPHA Unavailable [address] + [place] [address] CROFTCHECK, SHAREE Unavailable [address] + [place] [address] R Unavailable Unavailable Unavailable Care Team Providers Name Role Phone FABIOLA HARRIS Attending Unavailable Malik Avalos Attending Unavailable Oscar Guzman Referring Unavailable Oscar Guzman Attending Unavailable Oscar Guzman Primary Care Unavailable Ranney, Christopher Referring Unavailable Ranney, Oscar Attending Unavailable Ranney, Christopher Referring Unavailable Ranney, Exeter Primary Care Unavailable Angélica Howard Attending Unavailable Moodispaw, Isaiah Attending Unavailable Ranney, Christtylerer Referring Unavailable Ranney, Exeter Primary Care Unavailable Moodispaw, Isaiah Attending Unavailable Javierney, Christtylerer Referring Unavailable Moodispaw, Isaiah Attending Unavailable Moodispaw, Isaiah Referring Unavailable [facility] Unavailable Ranney, Oscar Attending Unavailable Ranney, Exeter Primary Care Unavailable Jeffrey, Erasto Zhou Attending Unavailable Jeffrey, Erasto Zhou Referring Unavailable Ranney, [facility] Unavailable Moodispaw, Isaiah Attending Unavailable Moodispaperir, Isaiah Referring Unavailable Angélica Marrero Attending Unavailable Ranney, Boner Referring Unavailable Moodispaw, Isaiah Attending Unavailable Moodispaw, Isaiah Referring Unavailable Ranney, [facility] Unavailable Moodispaw, Isaiah Attending Unavailable Moodispaw, Isaiah Referring Unavailable Ranney, Exeter Primary Care Unavailable Moodispaw, Isaiah Attending Unavailable Moodispaw, Isaiah Referring Unavailable Ranney, [facility] Unavailable Moodispaw, Isaiah Consulting Unavailable Ranney, Oscar Attending Unavailable Ranlake crystal, Exeter Primary Care Unavailable PROBLEMS PROBLEMS DATE TYPE CONDITION / CODE ATTENDING STATUS SOURCE 06/27/2018 Unknown I25.10 - Isaiah Orr Atherosclerotic heart Community disease of [facility] coronary artery Repository without angina pectoris / I25.10(ICD-10) 06/27/2018 Unknown Z95.5 - Presence of Isaiah Orr Active [facility] coronary angioplasty Community implant and graft / Hospital Z95.5(ICD-10) Repository 06/27/2018 Unknown Z95.1 - Presence of Isaiah Orr Active Jason aortocoronary bypass Community graft / Z95.1(ICD-10) Hospital Repository 06/27/2018 Unknown R94.39 - Abnormal Isaiah Orr result of other Community cardiovascular Hospital function study / Repository R94.39(ICD-10) 06/27/2018 Unknown R07.9 - Chest pain, Isaiah Orr unspecified / Community R07.9(ICD-10) Hospital Repository 06/17/2018 Unknown I10 - Essential Elida Active Jason (primary) Angélica Marte [facility] hypertension / Hospital I10(ICD-10) Repository 06/17/2018 Unknown E78.5 - Elida Active Jason Hyperlipidemia, Angélica Marte [facility] unspecified / Hospital E78.5(ICD-10) Repository PROCEDURES PROCEDURES No Procedure Records FoundRESULTS RESULTS CARDIOLOGY VISIT Observed: 07/09/2018 Status: F Source: [place] REPORT 4:11 PM [facility] REPOSITORY [facility] [address] [place] [address] OFFICE VISIT Date of Service: 07/09/18 MR#: [id number] Acct: [id number] Name: RUDDY RANDOLPH Rep #: [id number] : 1940 Provider: CEFERINO Avalos Age/Sex: 78/M Location: [facility] Status: Signed HPI HPI Details: RUDDY RANDOLPH, is a 78 M who presents to the office today for a cardiovascular outpatient follow-up. He has a history of coronary artery disease with bypass surgery in 2000. He had an SLOAN to the LAD, SVG to the diagonal, SVG to the RCA. Patient did undergo a PCIx3 to his RCA system in 2001 and drug-eluting stent to mid diagonal 1 in May 2018. He also has a history of hypertension and hyperlipidemia. Pt denies chest, arm, jaw, or neck discomfort. His exercise tolerance is stable. Pt denies symptoms of CHF, palpitations, near syncopal or syncopal episodes. Pt denies edema or claudication issues. Pt. denies orthopnea, PND, myalgia, or unexplainable fatigue. He states lightheadedness and dizziness with quick position changes. His states the patient's breathing has improved and has improved fatigue. 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 [Ecotrin] 81 mg PO DAILY@0800 tab 06/27/18 [Rx Confirmed 07/09/18] atorvastatin 40 mg tablet 40 mg PO QHS #90 tab 06/27/18 [Rx Confirmed 07/09/18] ramipril 10 mg capsule 10 mg PO BID #180 cap 06/30/18 [Rx Confirmed 07/09/18] clopidogrel 75 mg tablet 75 mg PO DAILY #90 tab 07/01/18 [Rx Confirmed 07/09/18] Ejection fraction %: 60 to 64 PFSH Medical History Hyperlipidemia (Chronic) Hypertension (Chronic) 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) Bladder cancer (Chronic) Hypothyroidism (Chronic) Surgical History Presence of stent in coronary artery (Chronic 06/26/18) Presence of aortocoronary bypass graft (Chronic 2000) Postsurgical percutaneous transluminal coronary angioplasty (PTCA) status (Chronic 09/07/01) History of cystoscopy (Resolved) Family History Father CAD (coronary artery disease) Myocardial infarction, Onset Age: 56 Grandmother Heart disease Uncle Heart disease Social History Smoking Status: Former smoker how long ago did patient quit smokin years ago alcohol intake: current alcohol intake frequency: a few times a month Alcohol type: beer details: occasional caffeine: Yes Type: carbonated beverages Number of servings: 2 ROS Const Const: Negative for fatigue, weakness, body ache, fever(s) or chills ENT ENT: Negative for dizziness Cardio Chest Pain: No Palpitations: No Edema: None Muscle aches with walking: None Resp Respiratory: Negative for SOB with activity, SOB at rest, SOB orthopnea\SOB lying down or paroxysmal nocturnal dyspnea GI GI: Negative nausea, black,tarry stools, bright, red blood in stools or vomiting blood/hematemesis : Negative for hematuria or frequent nighttime urination/ nocturia Musc Musc: Negative for muscle aches/ myalgia Skin Skin: Negative non-healing lesions or rash Neuro Neuro: Negative for weakness, dizziness, lightheadedness, near syncope, syncope or orthostatic symptoms Endo Endo: Negative for fatigue Allergy Allergy/Immunology: Negative for rash Cardiology Exam Const Appearance: cooperative, healthy appearing, comfortable and no acute distress Nutritional Appearance: average body habitus and well nourished Orientation: alert, awake and oriented x3 Head Head: normal to inspection Ears: hearing grossly normal bilaterally Nose: external nose normal Face and Sinus: face symmetric Mouth: oral mucosae normal Eyes General: appearance normal, both eyes and all related structures Eyelids: eyelids normal EOM: EOM intact bilaterally Neck Neck: no JVD and normal visual inspection Carotids: normal carotid upstroke Chest Chest inspection: normal inspection of the chest, normal respiratory effort and symmetric chest movement; negative cough Auscultation: Bilateral: Clear to Auscultation Cardio Rate: regular rate Rhythm: regular rhythm Heart sounds: S1 normal and S2 normal; negative rub, gallop or murmur GI GI: normal to inspection Neuro General: alert, awake, oriented x3 and CN's II-XI intact bilaterally Skin Skin: no rashes or lesions noted Extremities Pulses: Normal: Right Posterior Tibial Pulse, Left Posterior Tibial Pulse, Right Radial Pulse, Left Radial Pulse Lower Extremity Edema: None: Bilateral Psych Psychological: normal affect Assessment AND Plan 1. Presence of stent in coronary artery Z95.5 PTCA/Stent x3 of the prox,mid,distal RCA 09/07/01 @ [place]; PCI/CHANDAN to the mid D1 06/26/18 Plan Patient denies any chest pain, arm pain, jaw pain, neck pain, shortness of breath, or fatigue suggestive of angina at this time. We will continue to monitor this. We will not make any medication regimen changes and will continue risk factor modification. He was reminded the importance of aspirin and Plavix therapy with Plavix at least for 1 year. He acknowledged understanding. It was strongly recommended he undergo cardiac rehab. He denies at this time and states that he will go to Health system on a routine basis. He will keep his 3-month appointment and we will evaluate his overall progress. 2. Essential hypertension I10 Plan Patient's blood pressure is well-controlled today in the office. We will continue to monitor this. We will not make any medication regimen changes. 3. Pure hypercholesterolemia E78.00 Plan Lipid panel from March 2018 showed cholesterol: 120, HDL: 42, LDL: 55, and triglycerides: 113. He will continue with current statin medication. We will continue to monitor. 4. Presence of aortocoronary bypass graft Z95.1 SLOAN to LAD, SVG to first diagonal, and SVG to RCA in 2000; Plan Heart catheterization from May 2018 showed SLOAN graft to the Mid LAD is patent, Saphenous Vein graft to the 1st Diagonal is totally occluded, Saphenous Vein graft to the RCA is totally occluded, and collateral flow from Right to Right and collateral flow from Left to Right. He acknowledges improved symptoms. He will continue with current medications and we will continue to monitor. Plan Detail Additional Comments Thank you for allowing us to participate in the patients plan of care, if you have any questions please do not hesitate to call. This note was generated using a voice recognition system and there may be incorrect words, spelling or punctuation that were not noted when reviewing the office note prior to saving. Coding Level of Care Code Off vis,est,level 3 Diagnoses Presence of stent in coronary artery Z95.5 Essential hypertension I10 Hypertension type: essential hypertension Pure hypercholesterolemia E78.00 Hyperlipidemia type: pure hypercholesterolemia Presence of aortocoronary bypass graft Z95.1 Coding Level of Care Code Off vis,est,level 3 Diagnoses Presence of stent in coronary artery Z95.5 Essential hypertension I10 Hypertension type: essential hypertension Pure hypercholesterolemia E78.00 Hyperlipidemia type: pure hypercholesterolemia Presence of aortocoronary bypass graft Z95.1 07/09/18 1611 <Electronically signed by Malik RINALDI> Date Malik RINALDI Cosigner Signature: Date (if applicable) CC: Oscar Guzman MD 12 LEAD ELECTROCARDIOGRAM Observed: 07/02/2018 Status: F Source: [place] 3:13 PM [facility] REPOSITORY [facility] Cardiovascular Services [address] [place] [address] 12 Lead EKG 06/26/18 1156 MR#: [id number] Acct: [id number] Name: RUDDY RANDOLPH Rep #: [id number] : 1940 78 From: Isaiah Orr MD Attending Dr: Isaiah Orr MD Status: DEP SDC Ordering Dr: Jian Mccracken MD Date: 06/26/18 Location: [facility] Sex: M C Admitted: Test Reason : POST PCI Blood Pressure : / mmHG Vent. Rate : 054 BPM Atrial Rate : 054 BPM P-R Int : 156 ms QRS Dur : 090 ms QT Int : 448 ms P-R-T Axes : 061 -17 024 degrees QTc Int : 424 ms Sinus bradycardia Otherwise normal ECG Confirmed by KIRBY TRIVEDI, ISAIAH ([id number]), science editor RYAN AYERS ([id number]) on 07/02/2018 3:13:05 PM Referred By: Isaiah Orr Confirmed By:ISAIAH ORR MD 07/02/18 1513 Date Isaiah Orr MD CC: Jian Mccracken MD; Oscar Guzman MD; Isaiah Orr MD Signed 12 LEAD ELECTROCARDIOGRAM Observed: 07/02/2018 Status: F Source: [place] 3:02 PM [facility] REPOSITORY [facility] Cardiovascular Services [address] [place] [address] 12 Lead EKG 06/27/18 0525 MR#: [id number] Acct: [id number] Name: RUDDY RANDOLPH Rep #: [id number] : 1940 78 From: Isaiah Orr MD Attending Dr: Isaiah Orr MD Status: DEP SDC Ordering Dr: Jian Mccracken MD Date: 06/27/18 Location: [facility] Sex: M C Admitted: Test Reason : AM Blood Pressure : / mmHG Vent. Rate : 055 BPM Atrial Rate : 055 BPM P-R Int : 150 ms QRS Dur : 084 ms QT Int : 466 ms P-R-T Axes : 051 -18 037 degrees QTc Int : 445 ms Sinus bradycardia Otherwise normal ECG Confirmed by KIRBY TRIVEDI, ISAIAH ([id number]), science editor RYAN AYERS ([id number]) on 07/02/2018 3:02:25 PM Referred By: Isaiah Orr Confirmed By:ISAIAH ORR MD 07/02/18 1502 Date Isaiah Orr MD CC: Jian Mccracken MD; Oscar Guzman MD; Isaiah Orr MD Signed THYROID STIM HORMONE Collected: 07/02/2018 Status: F Source: [place] ([facility]) 10:15 AM [facility] REPOSITORY TYPE CODE TESTS RESULT OUT OF RANGE REFERENCE UNITS LAB L501.9520 0.358-3.74 uIU/mL Normal TSH 0.62 Performed By: #### L501.9520 #### [facility] [address] [place], [address] DISCHARGE SUMMARY Observed: 06/27/2018 Status: F Source: [place] 9:41 AM [facility] REPOSITORY [facility] Medical Records Department [address] [place] [address] Discharge Summary 06/27/18 0935 MR#: [id number] Acct: [id number] Name: RUDDY RANDOLPH Rep #: [id number] : 1940 78 From: Isaiah Orr MD PCP: Oscar Guzman MD Status: REG SDC Y Location: ICU ICU06-1 Discharge Date and Diagnosis Date of Admission: 06/26/18 Date of Discharge: 06/27/18 - Primary Discharge Diagnosis CAD s/p remote CABG s/p remote PCI s/p recent PCI - Secondary Discharge Diagnosis Chronic Problems (Last Reviewed 03/25/18 @ 13:55 by Angélica Howard) Hyperlipidemia (Chronic) Hypertension (Chronic) Presence of stent in coronary artery (Chronic 06/26/18) PTCA/Stent x3 of the prox,mid,distal RCA 09/07/01 @ [place]; PCI/CHANDAN to the mid D1 06/26/18 Presence of aortocoronary bypass graft (Chronic 2000) 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) Hospital Course and Treatment Procedures: Cardiac catheterization, - - PCI/STENT Summary of Care Provided: The patient is a 78 year old white male with a past medical history of CAD, s/p remote CABG, s/p remote PCI, who presented for evaluation of an abnormal exercise tolerance test / stress nuclear study for additional evaluation with cardiac catheterization. He underwent cardiac catheterization on 06/26/18 which subsequently lead to additional PCI/stent of the diagonal branch system (please see official report). He was monitored overnight in the ICU. He remain symptomatically and hemodynamically stable with no new acute changes in labs, cardiac rhythm, or ECG. on 06/27/18 he was considered stable for discharge home for continued outpatient follow up. [] Subjective: This is a 78 yo white male who appears to be resting comfortably at this time. - Physical Exam General: Alert, Oriented x3, Cooperative, No apparent distress HEENT: Atraumatic, PERRLA, EOMI, Normocephalic Oral: Moist Mucosa Neck: Supple, No JVD Lungs: Clear to auscultation Cardiovascular: Regular Rhythm, Normal S1, Normal S2 Abdomen: Bowel Sounds Present, Soft, Non Tender Extremities: No clubbing, No cyanosis, No edema Neurological: Neuro grossly intact Psych/Mental Status: Normal Affect Vital Signs Temp Pulse Resp BP Pulse Ox 98.0 F 59 L 20 H 156/75 H 99 06/27/18 09:00 06/27/18 09:00 06/27/18 09:00 06/27/18 09:00 06/27/18 09:00 Oxygen Delivery Method Room Air Weight: 170 lb 6.677 oz Body Mass Index (BMI) 24.6 Intake and Output for Last 24 Hours Intake Total 1029 / 1029 871 / 871 Output Total 600 / 600 1400 / 1400 Balance 429 / 429 -529 / -529 Laboratory Tests Past 24 Hrs Hgb 13.9 Hct 38.5 L Activated Clotting Time 224 H 219 H Sodium Potassium Chloride Hgb Hct Activated Clotting Time Sodium 143 Potassium 4.1 Chloride 111 H Carbon Dioxide 24.0 Discharge Diet: - - Cardiac Diet Discharge Activity: May Not Drive - May Not Drive: x 48 hours, May Shower May resume sexual activity in: 2 weeks Weight Bearing Status: - - Avoid heavy exertional activity x 7 days and then resume activity as tolerated Call your doctor if your incision/area has: Continuous Slow Oozing, Sudden Increased Bleeding, Increased Redness, Foul Smelling Discharge, Swelling at the incision site Call your doctor if you observe: Fever of 101 or Higher, Shortness of breath, Dizziness, Fainting spells, Chest pain, Increased palpitations (irregular heartbeat) Change Dressing in (Days):: 1 Cleanse incision/area with: Soap AND Water Home Medications: Medications to take at Discharge Levothyroxine [Synthroid] 100 mcg PO DAILY 02/24/16 Isosorbide Mononitrate [Isosorbide Mononitrate ER] 30 mg PO DAILY 11/03/16 Metoprolol Succinate [Toprol Xl] 50 mg PO QHS 11/03/16 aspirin 81 mg tablet,delayed release 81 mg PO QDAY 03/18/18 desonide 0.05 % lotion 1 applic TOPICAL BID PRN 03/18/18 clopidogrel 75 mg tablet 75 mg PO DAILY #30 tab 06/17/18 Aspirin E.C. [Ecotrin] 81 mg PO DAILY@0800 tablet 06/27/18 Atorvastatin Calcium [Lipitor] 40 mg PO QHS #90 tablet 06/27/18 Clopidogrel Bisulfate [Plavix] 75 mg PO DAILY tablet 06/27/18 Ramipril [Altace] 10 mg PO BID #180 capsule 06/27/18 Following Prescrptions Were Given to Patient: Atorvastatin Calcium [Lipitor] 40 mg PO QHS #90 tablet Ramipril [Altace] 10 mg PO BID #180 capsule Primary Care Physician: Robson Guzman MD [Primary Care Provider] - Please Follow Up With: Isaiah Orr MD When: [facility] to arrange the follow up appointment Minutes spent on discharge:: 30 Patient Condition:: Stable Medical Necessity - Tobacco Use Smoking Status: Former smoker Tobacco Use: Non-smoker Meaningful Use Info Meaningful Use Diagnoses (Choose all that apply): None applicable 06/27/18940 <Electronically signed by Isaiah Orr MD> Date Isaiah Orr MD Cosigner Signature (if applicable): Date CC: Oscar Guzman MD; Isaiah Orr MD Signed DISCHARGE INSTRUCTION Observed: 06/27/2018 Status: F Source: [place] 9:35 AM [facility] REPOSITORY [facility] Medical Records Department [address] [place] [address] Instructions for Home/Discharge Instructions 06/27/18 09 MR#: [id number] Acct: [id number] Name: RUDDY RANDOLPH Rep #: [id number] : 1940 78 From: Isaiah Orr MD PCP: Oscar Guzman MD Status: REG SDC - Discharge Diagnoses Current Active Problems: CAD s/p remote CABG s/p remote PCI s/p recent PCI Reason(s) for Visit for Discharge Instructions: Cardiac catheterization and PCI You will use the following diet at home:: Cardiac Your food should be the consistency of: Regular Discharge Activity: May Not Drive - May Not Drive: x 48 hours, May Shower May resume sexual activity in: 2 weeks Weight Bearing Status: - - Avoid heavy exertional activity x 7 days and then resume activity as tolerated Call your doctor if your incision/area has: Continuous Slow Oozing, Sudden Increased Bleeding, Increased Redness, Foul Smelling Discharge, Swelling at the incision site Call your doctor if you observe: Fever of 101 or Higher, Shortness of breath, Dizziness, Fainting spells, Chest pain, Increased palpitations (irregular heartbeat) Change Dressing in (Days):: 1 Cleanse incision/area with: Soap AND Water Additional Instructions: Stop Simvastatin when Atorvastatin arrives and then start Atorvastatin. Change Ramapril to 10 mg by mouth twice a day Allergies/Adverse Reactions: Allergies No Known Allergies Allergy (Verified 06/17/18 13:48) Medications to take at Discharge Levothyroxine [Synthroid] 100 mcg PO DAILY 02/24/16 Isosorbide Mononitrate [Isosorbide Mononitrate ER] 30 mg PO DAILY 11/03/16 Metoprolol Succinate [Toprol Xl] 50 mg PO QHS 11/03/16 aspirin 81 mg tablet,delayed release 81 mg PO QDAY 03/18/18 desonide 0.05 % lotion 1 applic TOPICAL BID PRN 03/18/18 clopidogrel 75 mg tablet 75 mg PO DAILY #30 tab 06/17/18 Aspirin E.C. [Ecotrin] 81 mg PO DAILY@0800 tablet 06/27/18 Atorvastatin Calcium [Lipitor] 40 mg PO QHS #90 tablet 06/27/18 Clopidogrel Bisulfate [Plavix] 75 mg PO DAILY tablet 06/27/18 Ramipril [Altace] 10 mg PO BID #180 capsule 06/27/18 The following prescriptions were given: Atorvastatin Calcium [Lipitor] 40 mg PO QHS #90 tablet Ramipril [Altace] 10 mg PO BID #180 capsule Primary Care Physician: Robson Guzman MD [Primary Care Provider] - Test Results: Test results from this visit will be discussed in further detail at your follow-up appointment, if applicable. Please Follow Up With: Isaiah Orr MD When: [facility] to arrange the follow up appointment 06/27/18 8235 <Electronically signed by Isaiah Orr MD> Date Isaiah Orr MD CC: Oscar Guzman MD HH, HEMOGLOBIN AND Collected: 06/27/2018 Status: F Source: [place] 4:45 AM [facility] REPOSITORY TYPE CODE TESTS RESULT OUT OF RANGE REFERENCE UNITS LAB L100.1300 13.0-16.5 g/dl Normal HGB 13.9 LAB L100.1400 40-54 % Low HCT 38.5 Performed By: #### L100.0600 #### [facility] [address] [place], [address] BASIC METABOLIC Collected: 06/27/2018 Status: F Source: [place] PROFILE (BMP) 4:45 AM [facility] REPOSITORY TYPE CODE TESTS RESULT OUT OF RANGE REFERENCE UNITS LAB L501.0100 74-106 mg/dL Normal GLU 94 Result Comment: Please note revised GLUCOSE reference range effective 2017. LAB L501.1000 7-18 mg/dL Normal BUN 10 LAB L501.1100 0.70-1.30 mg/dL Normal CREAT,SERUM 0.96 Result Comment: The validity of the calculated GFR AND GFRAA in patients over 70 years has not been determined. Clinical correlation is essential. LAB L501.1110 >60 mL/min Normal EST GFR 81 Result Comment: Non- GFR Calc LAB L501.1115 >60 mL/min Normal EST GFR - AA 98 Result Comment: GFR Calc LAB L501.1255 ml/min Normal Estimated CRCL 66.54 LAB L501.1300 10-20 RATIO Normal BUN/CRE 10.5 LAB L501.2200 8.5-10 mg/dL Low .1 CA 8.4 LAB L501.5300 136-14 mmol/L Normal 5 NA 143 LAB L501.5600 3.5-5. mmol/L Normal 1 K 4.1 LAB L501.5900 98-107 mmol/L High CL 111 LAB L501.6100 21.0-3 mmol/L Normal 2.0 CO2 24.0 LAB L501.6200 5-15 Normal GAP 8 Performed By: #### L500.2500 #### [facility] [address] [place] [address], 356351 ACT ACTIVATED CLOTTING Collected: 06/26/2018 Status: F Source: [place] TIME 11:25 AM [facility] REPOSITORY TYPE CODE TESTS RESULT OUT OF RANGE REFERENCE UNITS LAB L9100.0100 74-137 sec High ACTk CLOT 219 TIME Performed By: #### L9100.0100 #### [facility] Point of Care [address] [facility] [place] [address] ACT ACTIVATED CLOTTING Collected: 06/26/2018 Status: F Source: [place] TIME 11:04 AM [facility] REPOSITORY TYPE CODE TESTS RESULT OUT OF RANGE REFERENCE UNITS LAB L9100.0100 74-137 sec High ACTk CLOT 224 TIME Performed By: #### L9100.0100 #### [facility] Point of Care [address] [place] [address] CBC-COMPLETE BLOOD CNT Collected: 06/26/2018 Status: F Source: [place] NO DIFF 9:30 AM [facility] REPOSITORY TYPE CODE TESTS RESULT OUT OF RANGE REFERENCE UNITS LAB L100.1000 4.4-11.0 K/mm3 Normal WBC 7.3 LAB L100.1200 4.6-6.2 M/mm3 Normal RBC 4.61 LAB L100.1300 13.0-16.5 g/dl Normal HGB 14.7 LAB L100.1400 40-54 % Normal HCT 40.5 LAB L100.1500 80-94 fL Normal MCV 87.9 LAB L100.1600 27.0-32.0 pg Normal MCH 31.9 LAB L100.1700 32-36 g/gl High MCHC 36.3 LAB L100.1810 11.6-14.6 % Normal RDW CV 13.5 LAB L100.1820 35.1-43.9 fl Normal RDW SD 41.7 LAB L100.1900 150-450 K/mm3 Normal PLT 177 LAB L100.2000 6.2-12.0 fl Normal MPV 8.8 Performed By: #### L100.0500 #### [facility] [address] [place], [address] PROTHROMBIN TIME W/INR Collected: 06/26/2018 Status: F Source: [place] 9:30 AM [facility] REPOSITORY TYPE CODE TESTS RESULT OUT OF RANGE REFERENCE UNITS LAB L300.4150 11.7-14.9 SECONDS Normal PROTIME 13.8 LAB L300.4200 Normal INR 1.1 Performed By: #### L300.3900, L300.4310 #### [facility] [address] [place], [place], [id number] PARTIAL THROMBOPLAST Collected: 06/26/2018 Status: F Source: [place] TIME 9:30 AM [facility] REPOSITORY TYPE CODE TESTS RESULT OUT OF RANGE REFERENCE UNITS LAB L300.4310 24.1-36.2 Seconds Normal PTT 29.7 Performed By: #### L300.3900, L300.4310 #### [facility] [address] [place], [address] BASIC METABOLIC Collected: 06/26/2018 Status: F Source: [place] PROFILE (BMP) 9:30 AM [facility] REPOSITORY TYPE CODE TESTS RESULT OUT OF RANGE REFERENCE UNITS LAB L501.0100 74-106 mg/dL Normal GLU 81 Result Comment: Please note revised GLUCOSE reference range effective 2017. LAB L501.1000 7-18 mg/dL Normal BUN 12 LAB L501.1100 0.70-1.30 mg/dL Normal CREAT,SERUM 0.90 Result Comment: The validity of the calculated GFR AND GFRAA in patients over 70 years has not been determined. Clinical correlation is essential. LAB L501.1110 >60 mL/min Normal EST GFR 87 Result Comment: Non- GFR Calc LAB L501.1115 >60 mL/min Normal EST GFR - AA 105 Result Comment: GFR Calc LAB L501.1300 10-20 RATIO Normal BUN/CRE 13.3 LAB L501.2200 8.5-10.1 mg/dL CA Normal 8.6 LAB L501.5300 136-145 mmol/L NA Normal 143 LAB L501.5600 3.5-5.1 mmol/L K Normal 3.9 LAB L501.5900 98-107 mmol/L High CL 108 LAB L501.6100 21.0-32.0 mmol/L Normal CO2 27.0 LAB L501.6200 5-15 Normal GAP 8 Performed By: #### L500.2500 #### [facility] [address] [place], [address] CARDIOLOGY VISIT Observed: 06/22/2018 Status: F Source: [place]AS[place] REPORT 4:17 PM [facility] REPOSITORY [facility] [address] [place] [address] OFFICE VISIT Date of Service: 06/17/18 MR#: [id number] Acct: [id number] Name: RUDDY RANDOLPH Rep #: [id number] : 1940 Provider: Angélica Marrero Age/Sex: 78/M Location: [facility] Status: Signed HPI HPI Details: RUDDY RANDOLPH, is a 78 M who presents to the office today for an updated history and physical for a heart catheterization that is scheduled for June 26. This is for an abnormal stress test. He has a history of coronary artery disease with bypass surgery in 2000. He had an SLOAN to the LAD, SVG to the diagonal, SVG to the RCA. Patient did undergo a PCI to his RCA system in 2001. He also has a history of hypertension and hyperlipidemia. Patient was establishing with primary care doctor. He underwent a stress test which was abnormal. He then established with us. From a cardiac standpoint, patient is doing well. He does not have any chest discomfort/heaviness/tightness. His exercise tolerance is stable for his age. He does not have any worsening symptoms of shortness of breath. He denies any PND. He does not have any orthopnea. He does not have any symptoms of congestive heart failure. He does not have any palpitations that he is aware of. He does not have any lightheadedness or dizziness. He does not have any near-syncope or syncope. He does not have any lower extremity edema. He does not have any symptoms of claudication. 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 [employer] Operator Required: No Accompanied by: Is patient in pain?: No Allergies No Known Allergies Allergy (Verified 06/17/18 13:48) Medications Levothyroxine [Synthroid] 100 mcg PO DAILY 02/24/16 [History Confirmed 06/17/18] Isosorbide Mononitrate [Isosorbide Mononitrate ER] 30 mg PO DAILY 11/03/16 [History Confirmed 06/17/18] Metoprolol Succinate [Toprol Xl] 50 mg PO QHS 11/03/16 [History Confirmed 06/17/18] Ramipril [Altace] 10 mg PO DAILY 11/03/16 [History Confirmed 06/17/18] Simvastatin [Zocor] 20 mg PO QHS 11/03/16 [History Confirmed 06/17/18] aspirin 81 mg tablet,delayed release 81 mg PO QDAY 03/18/18 [History Confirmed 06/17/18] desonide 0.05 % lotion 1 applic TOPICAL BID PRN 03/18/18 [History Confirmed 03/25/18] clopidogrel 75 mg tablet 75 mg PO DAILY #30 tab 06/17/18 [Rx Confirmed 06/17/18] PFSH Medical History Hyperlipidemia (Chronic) Hypertension (Chronic) 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) Bladder cancer (Chronic) Hypothyroidism (Chronic) Surgical History Presence of stent in coronary artery (Chronic 09/07/01) Presence of aortocoronary bypass graft (Chronic 2000) Postsurgical percutaneous transluminal coronary angioplasty (PTCA) status (Chronic 09/07/01) History of cystoscopy (Resolved) Family History Father CAD (coronary artery disease) Myocardial infarction, Onset Age: 56 Grandmother Heart disease Uncle Heart disease Social History Smoking Status: Former smoker alcohol intake: current details: occasional ROS Const Const: Negative for fatigue, weakness, weight gain, weight loss, frequent falls or excessive sweating Eyes Eyes: Negative for change in vision, blurry vision or transient loss of vision ENT ENT: Negative for dizziness or balance problems Cardio Chest Pain: No Palpitations: No Edema: None Muscle aches with walking: None Resp Respiratory: Negative for SOB with activity or SOB at rest GI GI: Negative vomiting or vomiting blood/hematemesis : Negative for hematuria Musc Musc: Negative for balance problems Skin Skin: Negative non-healing lesions or rash Neuro Neuro: Negative for weakness, frequent falls, blurry vision or dizziness Ryan Hematologic/Lymphatic: Negative for easy bleeding Endo Endo: Negative for fatigue or excessive sweating Psych Psych: Negative for anxiety or depression Allergy Allergy/Immunology: Negative for rash Cardiology Exam Const Appearance: cooperative, healthy appearing, comfortable, no acute distress, well developed and well groomed Nutritional Appearance: thin Orientation: alert, awake and oriented x3 Head Head: normal to inspection, normocephalic and atraumatic Ears: hearing grossly normal bilaterally Nose: external nose normal Face and Sinus: face symmetric Mouth: oral mucosae normal Teeth and gingiva: fair dentition Eyes Eyelids: eyelids normal Conjunctivae: conjunctivae normal Pupils: PERRL EOM: EOM intact bilaterally Neck Neck: normal visual inspection and full ROM Carotids: normal carotid upstroke Chest Chest inspection: normal inspection of the chest and symmetric chest movement Auscultation: Bilateral: Clear to Auscultation Cardio Palpation: normal PMI Rate: regular rate Rhythm: regular rhythm Heart sounds: S1 normal, S2 normal and positive S4 GI GI: normal to inspection, soft, no hepatosplenomegaly and bowel sounds present Neuro General: alert, awake, oriented x3, gait normal, moves all extremities, no focal sensory deficit and no focal motor deficits Skin Skin: no rashes or lesions noted Extremities Pulses: Normal: Right Radial Pulse, Left Radial Pulse Lower Extremity Edema: None: Bilateral Psych Psychological: normal affect Supplemental Info Echocardiogram in 2018 demonstrated The study was technically difficult. Contrast injection was performed. Segmental dysfunction with preserved ejection fraction (see wall motion). The estimated ejection fraction is 60 %. Mild (1+) mitral valve insufficiency. Mild tricuspid valve insufficiency. Right ventricular systolic pressure estimated to be 25 mmHg. Transmitral diastolic flow velocities suggest diastolic dysfunction (pseudonormal pattern). Stress test in 2018 demonstrated 1. Rest and stress SPECT Cardiolite nuclear imaging demonstrate myocardial perfusion changes concerning for stress-induced myocardial ischemia involving portions of the distal anterior and anteroapical segments as well as the basal to mid inferior segments. 2. The gated Cardiolite study reports an LVEF of 62%. Assessment AND Plan 1. Atherosclerosis of inupiat coronary artery of inupiat heart without angina pectoris I25.10 Plan Patient does have an abnormal stress test. With his history of coronary artery disease and abnormal stress test would like to proceed with a heart catheterization. Patient is agreeable with this. Orders Orders: 2. Essential hypertension I10 Plan Blood pressure is well controlled on current medications, we do not recommend any changes at this time. Orders Orders: 3. Pure hypercholesterolemia E78.00; E78.0 Plan Patient will continue with low-dose statin at this time. Plan Detail Other Orders Orders: Other Medications New: Additional Comments We will follow-up with patient after heart catheterization. Thank you for allowing us to participate in the patients plan of care, if you have any questions please do not hesitate to call. This note was generated using a voice recognition system and there may be incorrect words, spelling or punctuation that were not noted when reviewing the office note prior to saving. Follow Up 06/17/18 (Keep as is) Coding Level of Care Code Off vis,est,level 3 Diagnoses Atherosclerosis of inupiat coronary artery of inupiat heart without angina pectoris I25.10 [place] vs. transplanted heart: inupiat heart Essential hypertension I10 Hypertension type: essential hypertension Pure hypercholesterolemia E78.00; E78.0 Hyperlipidemia type: pure hypercholesterolemia Coding Level of Care Code Off vis,est,level 3 Diagnoses Atherosclerosis of inupiat coronary artery of inupiat heart without angina pectoris I25.10 [place] vs. transplanted heart: inupiat heart Essential hypertension I10 Hypertension type: essential hypertension Pure hypercholesterolemia E78.00; E78.0 Hyperlipidemia type: pure hypercholesterolemia 06/22/18 1617 <Electronically signed by Angélica NICOLE> Date Angélica NICOLE Cosigner Signature: Date (if applicable) CC: Oscar Guzman MD CHEST PA AND LATERAL Observed: 06/17/2018 Status: F Source: [place] 3:04 PM [facility] REPOSITORY [facility] Imaging Services [address] [place] [address] Chest PA and Lateral MR#: [id number] Acct: [id number] Name: RUDDY RANDOLPH Rep #: [id number] : 1940 M 78 From: Clyde Mckinney MD PCP: Oscar Guzman MD Status: REG CLI Study: Chest PA and Lateral Date of Exam: 06/17/18 Exam# [id number] Ordering Dr: Isaiah Orr MD STUDY: X-RAY CHEST REASON FOR EXAM: Male, 78 years old. Heart catheterization next week TECHNIQUE: PA and lateral views of the chest. COMPARISON: 02/24/2016 FINDINGS: The lungs are clear and expanded. There is no demonstrated pleural abnormality. Normal size heart. Sternal wires and mediastinal surgical clips compatible with prior CABG. Normal mediastinum and francia. Normal visualized pulmonary arteries. Normal visualized aortic arch and descending thoracic aorta. Normal visualized thoracic spine. Normal visualized ribs, clavicles, and shoulders. There is no demonstrated abnormality of the visualized soft tissue structures of the upper abdomen. RAD/Chest PA and Lateral IMPRESSION: Stable exam. No acute cardiopulmonary process. Electronically Signed: Clyde Mckinney MD at 9:02 EST , Service support , CC: Oscar Guzman MD; Isaiah Orr MD Door Trimmer: Signed 12 LEAD EKG PERFORMED Observed: 06/17/2018 Status: F Source: [place] BY [facility] 1:42 PM [facility] REPOSITORY [address] [address] 12 Lead EKG performed by [facility] 06/17/18 1341 MR#: [id number] Acct: [id number] Name: RUDDY RANDOLPH Rep #: [id number] : 1940 78 From: Angélica NICOLE Attending Dr: Angélica Marrero Status: DEP AMB Ordering Dr: Angélica Marrero Date: 06/17/18 Location: [facility] Sex: M C Admitted: [facility]/12 Lead EKG performed by [facility] ECG Report Interpretation Marked sinus Bradycardia Leftward axisElectronically signed on 06/22/2018 at 16:27 by Isaiah Orr Software Version 8610 06/22/18 1631 Date Angélica NICOLE CC: Oscar Guzman MD Date Dictated: 06/17/18 1341 Date Transcribed: 06/17/181340 Door Trimmer: MARLON Signed CYTOSPIN ON FLUID Observed: 04/28/2018 Status: F Source: [place] 12:00 AM [facility] REPOSITORY Patient: RUDDY RANDOLPH : 1940 (77/M) Acct Num: [id number] Phys: Jeffrey TRIVEDI,Erasto Zhou Unit Num: [id number] Loc: [facility] Specimen: [id number] Received: 04/28/18 - 1344 Spec Type: CYSPIN FL TISSUES 1 TISSUES: Urine COMMENT Repeat cytology is suggested if clinically indicated. 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 CYTOLOGY GROSS Received is 40 ml of gold cloudy fluid labeled with the patient's name and and designated per the requisition as urine. Submitted for cytology preparation. / 04/28/18 TC:2 CPT: 51762 CYTOLOGY STUDY Slides are reviewed. DIAGNOSIS CYTOLOGY Urine for cytology (cytospin): Rare degenerated atypical cells noted. Marked acute inflammation. SJ:irene 04/29/18 HEADER OPERATION: Not noted PRE-OP DIAGNOSIS: History bladder CA, hematuria TISSUE SUBMITTED: Urine for cytology Signed Thomas Negron 04/29/18 <signature on file> Performed By: #### PCYSPIN #### [facility] [address] [place], [address] CYTOLOGY, BODY FLUID / Collected: 04/27/2018 Status: F Source: [place] CSF 8:30 AM [facility] REPOSITORY Order Comment: Specimen Source: URINE TYPE CODE TESTS RESULT OUT OF RANGE REFERENCE UNITS LAB L350.1000 SEE Normal PATHOLOGY CYTOLOGY,BF REPORT /CSF Result Comment: Specimen submitted to Anatomical Pathology Department for testing. Performed By: #### L350.1000 #### [facility] [address] [place], [place], [address] CBC W/DIFF, AUTOMATED Collected: 04/23/2018 Status: F Source: [place] 11:27 AM [facility] REPOSITORY TYPE CODE TESTS RESULT OUT OF RANGE REFERENCE UNITS LAB L100.1000 4.4-11.0 K/mm3 Normal WBC 5.9 LAB L100.1200 4.6-6.2 M/mm3 Normal RBC 4.67 LAB L100.1300 13.0-16.5 g/dl Normal HGB 14.4 LAB L100.1400 40-54 % Normal HCT 41.4 LAB L100.1500 80-94 fL Normal MCV 88.7 LAB L100.1600 27.0-32.0 pg Normal MCH 30.8 LAB L100.1700 32-36 g/gl Normal MCHC 34.8 LAB L100.1810 11.6-14.6 % Normal RDW CV 13.4 LAB L100.1820 35.1-43.9 fl Normal RDW SD 43.3 LAB L100.1900 150-450 K/mm3 Normal PLT 152 LAB L100.2000 6.2-12.0 fl Normal MPV 8.5 LAB L100.2100 47-70 % Normal NEUT% 57.4 LAB L100.2200 19-41 % Normal LY% 25.8 LAB L100.2300 0-10 % Normal MONO% 9.0 LAB L100.2400 0-5 % High EO% 6.9 LAB L100.2500 0-1 % Normal BASO% 0.7 LAB L100.2550 0.0-0.9 % Normal IM GRAN % 0.200 Result Comment: IG% - Immature Granulocytes (promyelocytes, myelocytes and metamyelocytes) > 1% indicates that a LEFT SHIFT is Present. LAB L100.2620 2.0-7.7 X10 3/uL Normal Absolute Neut 3.4 LAB L100.2720 0.83-4.51 X10 3/ul Normal Absolute Lymph 1.52 Performed By: #### L100.0100 #### [facility] [address] [place], [address] COMPREHENSIVE METABOLIC Collected: 04/23/2018 Status: F [facility] TYPE CODE TESTS RESULT OUT OF RANGE REFERENCE UNITS LAB L501.0100 74-106 mg/dL Normal GLU 91 Result Comment: Please note revised GLUCOSE reference range effective 2017. LAB L501.1000 7-18 mg/dL Normal BUN 12 LAB L501.1100 0.70-1.30 mg/dL Normal CREAT,SERUM 0.94 Result Comment: The validity of the calculated GFR AND GFRAA in patients over 70 years has not been determined. Clinical correlation is essential. LAB L501.1110 >60 mL/min Normal EST GFR 83 Result Comment: Non- GFR Calc LAB L501.1115 >60 mL/min Normal EST GFR - AA 100 Result Comment: GFR Calc LAB L501.1300 10-20 RATIO Normal BUN/CRE 12.7 LAB L501.1500 6.4-8.2 g/dL T Normal PROT 7.2 LAB L501.1800 3.2-5.0 g/dL Normal ALB 3.9 LAB L501.1950 2.2-4.2 g/dL Normal GLOB 3.3 LAB L501.2000 0.9-2.4 RATIO Normal A/G 1.2 LAB L501.2200 8.5-10.1 mg/dL CA Normal 8.6 LAB L501.4100 15-37 U/L Normal AST 18 LAB L501.4305 45-117 U/L Normal ALK P 73 LAB L501.4405 16-61 U/L Normal ALT 24 LAB L501.4600 0.20-1.00 mg/dL T Normal BILI 0.90 LAB L501.5300 136-145 mmol/L NA Normal 140 LAB L501.5600 3.5-5.1 mmol/L K Normal 4.2 LAB L501.5900 98-107 mmol/L High CL 109 LAB L501.6100 21.0-32.0 mmol/L Normal CO2 27.0 LAB L501.6200 5-15 Low GAP 4 Performed By: #### L500.4050, L500.4100, L501.9520, L506.0400 #### [facility] [address] [place], [place], [address] LIPID PROFILE Collected: 04/23/2018 Status: F Source: [place] 11:27 AM [facility] REPOSITORY TYPE CODE TESTS RESULT OUT OF RANGE REFERENCE UNITS LAB L501.4900 200 mg/dL Normal CHOL 120 Result Comment: <200 mg/dL Desirable 200-240 mg/dL Borderline >240 mg/dL High Risk LAB L501.5000 mg/dL Normal TRIG 113 Result Comment: The drugs N-Acetylcysteine and Metamizole may falsely depress this assay. Serum Triglycerides Reference Interval Normal <150 mg/dL Borderline high 150 - 199 mg/dL High 200 - 499 mg/dL Very High > or = 500 mg/dL LAB L501.6400 mg/dL Normal HDL 42 Result Comment: The drugs N-Acetylcysteine and Metamizole may falsely depress this assay. Reference Range HDL <40 mg/dL Low HDL Cholesterol HDL >or= 60 mg/dL High HDL Cholesterol LAB L501.6500 0-130 mg/dL Normal LDL 55 LAB L501.6600 5-40 mg/dL Normal VLDL 23 Performed By: #### L500.4050, L500.4100, L501.9520, L506.0400 #### [facility] [address] [place], [place], [address] THYROID STIM HORMONE Collected: 04/23/2018 Status: F Source: [place] ([facility]) 11:27 AM [facility] REPOSITORY TYPE CODE TESTS RESULT OUT OF RANGE REFERENCE UNITS LAB L501.9520 0.358-3.74 uIU/mL Low TSH 0.20 Performed By: #### L500.4050, L500.4100, L501.9520, L506.0400 #### [facility] [address] [place], [address] T4 FREE DIRECT Collected: 04/23/2018 Status: F Source: [place] 11:27 AM [facility] REPOSITORY TYPE CODE TESTS RESULT OUT OF RANGE REFERENCE UNITS LAB L506.0400 0.76-1.46 ng/dL Normal T4 FREE 1.23 DIRECT Performed By: #### L500.4050, L500.4100, L501.9520, L506.0400 #### [facility] [address] [place], [address] ECHOCARDIOGRAM COMPLETE Observed: 04/14/2018 Status: F Source: [place] 9:30 AM [facility] REPOSITORY [facility] Cardiovascular Services [address] [place] [address] Echo Complete W/ Contrast 04/14/18 0737 MR#: [id number] Acct: [id number] Name: RUDDY RANDOLPH Rep #: [id number] : 1940 77 From: Isaiah Orr MD Attending Dr: Isaiah Orr MD Status: REG CLI Ordering Dr: Isaiah Orr MD Date: 04/14/18 Location: [facility] Sex: M C Admitted: Reason For Study: S/P CABG Procedure This was a 2D Doppler, Color Flow transthoracic echocardiogram. The study was technically difficult. Contrast injection was performed. Exam performed in department. Left Ventricle Normal LV size. Segmental dysfunction with preserved ejection fraction (see wall motion). The estimated ejection fraction is 60 %. No regional wall motion abnormalities noted. Right Ventricle Normal RV size. Normal systolic function. Atria Normal left atrium. Normal right atrium. No doppler evidence for ASD. Mitral Valve There is no mitral annular calcification. Normal mitral valve. Mild (1+) mitral valve insufficiency. Tricuspid Valve Normal tricuspid valve. Mild tricuspid valve insufficiency. Right ventricular systolic pressure estimated to be 25 mmHg. Aortic Valve Trisinus/trileaflet aortic valve. Normal aortic valve. Pulmonic Valve The pulmonic valve is not well visualized. Great Vessels Normal sized aortic root. Pericardium/Pleural No pericardial effusion. Medication 22 gauge I.V. with prn adaptor inserted into right arm. Diluted definity 5ml given slow IV push to enhance endocardial definition. MMode/2D Measurements AND Calculations LVIDd: 5.0 cm IVSd: 0.82 cm Ao root diam: 3.1 cm LVIDs: 3.7 cm LVPWd: 0.91 cm LA dimension: 4.0 cm RVDd: 4.0 cm FS: 27.3 % LAV(MOD-bp): 52.1 ml LVAd ap4: 22.5 cm2 SV(MOD-sp4): 35.0 ml LAV(MOD-bp) Indexed: 26.7 ml/m2 EDV(MOD-sp4): 57.3 ml LAV(MOD-sp2): 65.7 ml EDV(sp4-el): 57.1 ml LAV(MOD-sp4): 39.8 ml LVAs ap4: 11.6 cm2 ESV(MOD-sp4): 22.3 ml ESV(sp4-el): 21.9 ml EF(MOD-sp4): 61.1 % EF(sp4-el): 61.7 % SV(sp4-el): 35.2 ml LA A4 area: 16.6 cm2 RA A4 area: 13.6 cm2 Time Measurements MV dec time: 0.33 sec Doppler Measurements AND Calculations MV E max alex: 76.3 cm/sec Lat Peak E' Alex: 9.7 cm/sec Med Peak E' Alex: 6.5 cm/sec MV A max alex: 53.3 cm/sec E/E' lat: 7.8 E/E' med: 11.8 MV E/A: 1.4 Ao V2 max: 112.9 cm/sec LV V1 max: 93.2 cm/sec PA V2 max: 100.0 cm/sec Ao max P.1 mmHg LV V1 max P.5 mmHg TR max alex: 234.8 cm/sec TR max P.1 mmHg Interpretation Summary The study was technically difficult. Contrast injection was performed. Segmental dysfunction with preserved ejection fraction (see wall motion). The estimated ejection fraction is 60 %. Mild (1+) mitral valve insufficiency. Mild tricuspid valve insufficiency. Right ventricular systolic pressure estimated to be 25 mmHg. Transmitral diastolic flow velocities suggest diastolic dysfunction (pseudonormal pattern). Ordering Physician: Isaiah Orr Referring Physician: OSCAR GUZMAN Performed By: Celine Arango, ANDREA, RVT 04/14/18928 Date Isaiah Orr MD CC: Oscar Guzman MD; Isaiah Orr MD Date Dictated: 04/14/18 0737 Date Transcribed: 04/14/18928 Door Trimmer: Signed CARDIOLOGY VISIT Observed: 03/25/2018 Status: F Source: [place] REPORT 5:56 PM [facility] REPOSITORY [facility] 37 [address] [place], [place] [address]judith. [address] [place] [address] OFFICE VISIT Date of Service: 03/25/18 MR#: [id number] Acct: [id number] Name: RUDDY RANDOLPH Rep #: [id number] : 1940 Provider: Isaiah Orr MD Age/Sex: 77/M Location: [facility] Status: Signed HPI HPI Details: RUDDY RANDOLPH, is a 77 M who presents to the office today for outpatient cardiovascular consultation based upon a history of underlying CAD, previous CABG, previous PCI, now with an abnormal exercise tolerance test. He notes that he underwent evaluation with CABG several years ago. The report is unavailable at this time for review. He believes he received 3 bypass grafts. He states following that he did have a cardiac catheterization procedure performed. That report is also unavailable for review. However it apparently led to a PCI. This appears to been performed on 09/07/2001 and per a report available for review stated he received a PCI to the RCA system. There is no comment on other vessels or graft vessels. He states overall he has felt well. He remains very active. He notes he lifts heavy objects outside. He believes he has muscle skeletal discomfort in his chest from lifting heavy objects. He does not describe any other forms of chest discomfort at rest or with exertion. He has had no evidence of orthopnea or PND or peripheral pitting edema. There has been no near syncope or syncope. Her graph he states he takes his medications as scheduled. He believes he does very well overall. His is with him today and states she has recognized no significant changes. He recently established care with Dr. Guzman. He subsequently underwent evaluation with an exercise tolerance test based upon his cardiovascular history. Per the report he exercised on the Nicho protocol for 5 minutes achieving 101% predicted maximal heart rate with a peak blood pressure of 204/88 mmHg. His peak MET capacity was 7 MET's. He did have an abnormal ECG response. He had a rare PVC and ventricular couplets/triple during exercise and a rare PAC during recovery. He did complain of left-sided chest discomfort with spontaneous resolution to baseline in recovery. His nuclear images suggested an area concerning for stress-induced myocardial ischemia involving portions of the distal anterior and anterior apical segments as well as the basal to mid inferior segments. His gated LVEF was 62%. He did have an ECG in the office today. He was noted to have sinus bradycardia. He had no acute ECG changes. Intake Vital Signs03/25/18 Height 5 ft 10 in 03/25/18 Weight: 171 lb 03/25/18 Body Mass Index (BMI) 24.5 03/25/18 Blood Pressure 152/64 Intake Visit Reasons: Needs local card. (Thomas) [employer] Allergies No Known Allergies Allergy (Verified 03/25/18 13:52) Medications Levothyroxine [Synthroid] 100 mcg PO DAILY 02/24/16 [History Confirmed 03/25/18] Isosorbide Mononitrate [Isosorbide Mononitrate ER] 30 mg PO DAILY 11/03/16 [History Confirmed 03/25/18] Metoprolol Succinate [Toprol Xl] 50 mg PO QHS 11/03/16 [History Confirmed 03/25/18] Ramipril [Altace] 10 mg PO DAILY 11/03/16 [History Confirmed 03/25/18] Simvastatin [Zocor] 20 mg PO QHS 11/03/16 [History Confirmed 03/25/18] aspirin 81 mg tablet,delayed release 81 mg PO QDAY 03/18/18 [History Confirmed 03/25/18] desonide 0.05 % lotion 1 applic TOPICAL BID PRN 03/18/18 [History Confirmed 03/25/18] [facility] Medical History Hyperlipidemia (Chronic) Hypertension (Chronic) Presence of stent in coronary artery (Chronic 09/07/01) 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) Bladder cancer (Chronic) Hypothyroidism (Chronic) Surgical History Presence of aortocoronary bypass graft (Chronic 2000) Postsurgical percutaneous transluminal coronary angioplasty (PTCA) status (Chronic 09/07/01) History of cystoscopy (Resolved) Family History Father CAD (coronary artery disease) Myocardial infarction, Onset Age: 56 Grandmother Heart disease Uncle Heart disease Social History Smoking Status: Former smoker alcohol intake: current details: occasional ROS Const Const: Negative for fatigue, weakness, weight gain, weight loss, frequent falls or excessive sweating Eyes Eyes: Negative for change in vision, blurry vision or transient loss of vision ENT ENT: Negative for dizziness or balance problems Cardio Chest Pain: No Palpitations: No Edema: None Muscle aches with walking: None Resp Respiratory: Negative for SOB with activity or SOB at rest GI GI: Negative vomiting or vomiting blood/hematemesis : Negative for hematuria Musc Musc: Negative for balance problems, muscle aches/ myalgia, muscle weakness or joint pain Skin Skin: Negative non-healing lesions or rash Neuro Neuro: Negative for weakness, blurry vision, dizziness, lightheadedness, frequent falls or orthostatic symptoms Ryan Hematologic/Lymphatic: Negative for easy bleeding Endo Endo: Negative for fatigue or excessive sweating Psych Psych: Negative for anxiety or depression Allergy Allergy/Immunology: Negative for hives, Negative for rash Cardiology Exam Const Appearance: cooperative, healthy appearing, comfortable, no acute distress, well developed and well groomed Nutritional Appearance: thin Orientation: alert, awake and oriented x3 Head Head: normal to inspection, normocephalic and atraumatic Ears: hearing grossly normal bilaterally Nose: external nose normal Face and Sinus: face symmetric Mouth: oral mucosae normal Teeth and gingiva: fair dentition Eyes Eyelids: eyelids normal Conjunctivae: conjunctivae normal Pupils: PERRL EOM: EOM intact bilaterally Neck Neck: normal visual inspection and full ROM Carotids: normal carotid upstroke Chest Chest inspection: normal inspection of the chest and symmetric chest movement Auscultation: Bilateral: Clear to Auscultation Cardio Palpation: normal PMI Rate: regular rate Rhythm: regular rhythm Heart sounds: S1 normal, S2 normal and positive S4 GI GI: normal to inspection, soft, no hepatosplenomegaly and bowel sounds present Neuro General: alert, awake, oriented x3, gait normal, moves all extremities, no focal sensory deficit and no focal motor deficits Skin Skin: no rashes or lesions noted Extremities Pulses: Normal: Right Radial Pulse, Left Radial Pulse Lower Extremity Edema: None: Bilateral Psych Psychological: normal affect Assessment AND Plan 1. Abnormal cardiovascular stress test R94.39 Plan At the present time he does have an abnormal exercise tolerance test/imaging study. Based upon his symptoms, his ECG changes, and his nuclear imaging changes, it does raise concern about the possibility of progression of underlying inupiat vessel CAD or graft vessel CAD. He was asked to continue medical therapy. He was asked to consider further evaluation with diagnostic cardiac catheterization. He states prior to making such a decision he wants to discuss this with his primary care physician. 2. Atherosclerosis of inupiat coronary artery of inupiat heart without angina pectoris I25.10 Plan He does have underlying CAD as noted above. The details of his CAD are unknown at this time as his previous cardiac catheterization reports are unavailable for review. He will continue medical management. He will consider the option of a diagnostic cardiac catheterization. Orders Orders: 3. Presence of aortocoronary bypass graft Z95.1 Plan He has had CABG. He believes it was a 3 vessel CABG. However the CABG report is unavailable for review. An attempt will be made to retrieve the support. This would be very helpful especially if he elects to proceed with diagnostic cardiac catheterization to assist with his anatomy, etc. Orders Orders: 4. Presence of stent in coronary artery Z95.5 PTCA/Stent x3 of the prox,mid,distal RCA 09/07/01 @ [place] Plan A report of an art CA PTCA/stent is available. It is noted as above. It does not comment on other vessels her graft vessels. Orders Orders: 5. Hyperlipidemia, unspecified hyperlipidemia type E78.5 Plan He will continue lipid-lowering therapy. He is being followed by his primary care physician for his lipid profile 6. Essential hypertension I10 Plan His blood pressure is somewhat elevated today. However he states it is not always elevated. He was asked to monitor his blood pressure. If it is elevated he should have further adjustment of his medications Orders Orders: Plan Detail Additional Comments He did appear to be somewhat reluctant to adjust medications today. He was also somewhat reluctant to proceed with further evaluation with diagnostic cardiac catheterization until he discusses it with his primary care physician. In the interim he was accepting of having a transthoracic echocardiogram performed to evaluate his left ventricular size, wall thickness, and overall LV systolic function. This probably provide more additional information with respect to his cardiovascular status. In the interim an attempt will be made to retrieve additional cardiovascular records for continuity of care purposes. Thank you for allowing me to participate in the care of your patient. Please don't hesitate to call if any issues arise. This note was generated using a voice recognition system and there may be incorrect words, spelling or punctuation that were not noted when reviewing the office note prior to saving. Follow Up 6 Months (PFM) Coding Level of Care Code Off vis,new,level 3 Diagnoses Abnormal cardiovascular stress test R94.39 Atherosclerosis of inupiat coronary artery of inupiat heart without angina pectoris I25.10 [place] vs. transplanted heart: inupiat heart Presence of aortocoronary bypass graft Z95.1 Presence of stent in coronary artery Z95.5 Hyperlipidemia, unspecified hyperlipidemia type E78.5 Hyperlipidemia type: unspecified Essential hypertension I10 Hypertension type: essential hypertension Coding Level of Care Code Off vis,new,level 3 Diagnoses Abnormal cardiovascular stress test R94.39 Atherosclerosis of inupiat coronary artery of inupiat heart without angina pectoris I25.10 [place] vs. transplanted heart: inupiat heart Presence of aortocoronary bypass graft Z95.1 Presence of stent in coronary artery Z95.5 Hyperlipidemia, unspecified hyperlipidemia type E78.5 Hyperlipidemia type: unspecified Essential hypertension I10 Hypertension type: essential hypertension 03/25/18 1756 <Electronically signed by Isaiah Orr MD> Date Isaiah Orr MD Cosigner Signature: Date (if applicable) CC: Oscar Guzman MD 12 LEAD EKG PERFORMED Observed: 03/25/2018 Status: F Source: [place] [facility] 1:44 PM [facility] REPOSITORY [facility] [address] [place] [address] 12 Lead EKG performed by [facility] 03/25/18 1343 MR#: [id number] Acct: [id number] Name: RUDDY RANDOLPH Rep #: [id number] : 1940 77 From: Isaiah Orr MD Attending Dr: Isaiah Orr MD Status: DEP AMB Ordering Dr: Isaiah Orr MD Date: 03/25/18 [place] [facility] Sex: M C Admitted: [facility]/12 Lead EKG performed by [facility] ECG Report Interpretation Marked sinus Bradycardia Leftward axisElectronically signed on 03/25/2018 at 18:24 by Isaiah Orr Software Version [id number] 03/25/18 1824 Date Isaiah Orr MD CC: Oscar Guzman MD Date Dictated: 03/25/181342 Date Transcribed: 03/25/181342 Door Trimmer: PM Signed ESOPHAGUS ONLY Observed: 03/18/2018 Status: F Source: [place] 8:25 AM [facility] REPOSITORY [facility] Imaging Services [address] [place] [address] Esophagus Only MR#: [id number] Acct: [id number] Name: RUDDY RANDOLPH Rep #: [id number] : 1940 M 77 From: Edwin Patel MD PCP: Oscar Guzman MD Status: REG CLI Study: Esophagus Only Date of Exam: 03/18/18 Exam# [id number] Ordering Dr: Robson Guzman MD STUDY: X-RAY - ESOPHAGUS (BARIUM SWALLOW) WITH FLUOROSCOPY REASON FOR EXAM: Male, 77 years old. Dysphagia for solids. History of bladder cancer TECHNIQUE: 13 view(s) of the esophagus were obtained following swallowing of barium. FLUOROSCOPY TIME (if supplied): (0:24) minutes/seconds COMPARISON: None. FINDINGS: There is no demonstrated esophageal foreign body. There is no demonstrated stricture or mucosal abnormality. Normal gastroesophageal junction, without a demonstrated hiatal hernia. The patient ingested a 12 mm tablet of barium without any difficulty. Normal visualized aortic arch and descending thoracic aorta. Normal visualized pulmonary parenchyma. Normal visualized osseous structures of the thorax. RAD/Esophagus Only IMPRESSION: Normal plain film x-ray examination (barium swallow) of the esophagus. Electronically Signed: Edwin Patel MD at 9:57 EDT Tel [phone], Service support , CC: Oscar Guzman MD Door Trimmer: Signed STRESS REPORT Observed: 03/04/2018 Status: F Source: [place] 8:54 AM [facility] REPOSITORY [facility] Cardiovascular Services [address] [place] [address] MR#: [id number] Acct: [id number] Name: RUDDY RANDOLPH Rep #: [id number] : 1940 77 From: Isaiah Orr MD Primary Care: Oscar Guzman MD Status: REG CLI Ordering Dr: Bean: Estuardo Espino Stress Test Report Date: 03/16/2018 Procedure: Exercise tolerance test/imaging study Indications: Chest pain; CAD; CABG; PCI Consent: Per the patient Procedure: The patient exercised on a Nicho protocol for 5 minutes completing Stage I and 2 minutes of Stage II achieving a peak heart rate of 146 bpm (101 % predicted maximal heart rate) with a peak blood pressure 204/88 mmHg and a peak MET capacity of 7 METs. The baseline ECG demonstrated on his bradycardia. The peak exercise ECG demonstrated approximately 1-[address] segment depression in leads II, III, aVF, and V4 through V6 with gradual resolution towards baseline in recovery. There was a rare PVC and ventricular couplet/triplet during exercise and a rare PAC during recovery. The functional capacity was considered average. There was vague left-sided chest discomfort with spontaneous resolution to baseline in recovery. The examination was discontinued secondary to dyspnea. Impression: 1. Technically adequate (percent predicted maximal heart rate greater than 85%) exercise tolerance test 2. Peak exercise ECG demonstrated approximately 1-[address] segment depression in leads II, III, aVF, and V4 through V6 with gradual resolution towards baseline in recovery 3. There was a rare PVCs/ventricular couplet/triplet during exercise and a rare PAC during recovery 4. Nuclear images pending Myocardial perfusion imaging study: Technique: The patient was injected with 10.5 mCi of technetium 99m Cardiolite and subsequently rest SPECT Cardiolite nuclear imaging was obtained in the horizontal long, vertical long, and short axis views. The patient exercised on a Nicho protocol for 5 minutes completing Stage I and 2 minutes of Stage II achieving a peak heart rate of 146 bpm (101 % predicted maximal heart rate) with a peak blood pressure 204/88 mmHg and a peak MET capacity of 7 METs. The patient was injected with 31.8 mCi of technetium 99m Cardiolite and subsequently stress SPECT Cardiolite nuclear imaging was obtained in the horizontal long, vertical long, and short axis views. A gated Cardiolite study at peak stress was obtained. Interpretation: Rest and stress SPECT Cardiolite nuclear imaging status post realignment, normalization, and attenuation correction, demonstrates at rest relative uniform tracer uptake and status post stress the appearance of diminished tracer uptake in portions of the distal anterior and anteroapical segments as well as the basal to mid inferior segments. There are similar type findings on the resting and stress polar map images. There is end systolic thickening and brightening. The gated Cardiolite study demonstrates myocardial thickening and inward wall motion. The reported LVEF is 62 %. Impression: 1. Rest and stress SPECT Cardiolite nuclear imaging demonstrate myocardial perfusion changes concerning for stress-induced myocardial ischemia involving portions of the distal anterior and anteroapical segments as well as the basal to mid inferior segments. 2. The gated Cardiolite study reports an LVEF of 62%. This note was generated with [employer] software. It may contain incorrect words, spelling, and punctuation that were not noted in checking the note before signing. 03/04/18853 <Electronically signed by Isaiah Orr MD> Date Isaiah Orr MD CC: Oscar Guzman MD Date Dictated: 03/04/18845 Date Transcribed: 03/04/18845 Door Trimmer: PM Signed FECAL OCCULT BLD Collected: 10/12/2017 Status: F Source: [facility] 5:51 AM [facility] REPOSITORY TYPE CODE TESTS RESULT OUT OF REFERENCE UNITS RANGE LAB IFO Negative Immuno Negative FOB Result Comment: This test was developed and its performance characteristics determined by [facility] [place] (-[facility]). It has not been cleared or approved by the FDA. [facility] is regulated under CLIA as qualified to perform high-complexity testing. This test is used for clinical purposes. It should not be regarded as investigational or for research. Performed By: #### IFOBT #### [facility] [address] [place], [place] [address] BASIC METABOLIC PANL Collected: 09/29/2017 Status: F Source: [place] 9:32 AM [facility] REPOSITORY TYPE CODE TESTS RESULT OUT OF REFERENCE UNITS RANGE LAB GLU 74-99 mg/dL Glucose 99 Result Comment: The [place] Diabetes Association (ADA) provides guidance for cutoff values for fasting glucose and random glucose. The ADA defines fasting as no caloric intake for at least 8 hours. Fas ting plasma glucose results between 100 to 125 mg/dL indicate increased risk for diabetes (prediabetes). Fasting plasma glucose results greater than or equal to 126 mg/dL meet the criteria for diagnosis of diabetes. In the absence of unequivocal hyperglycemia, results should be confirmed by repeat testing. In a patient with classic symptoms of hyperglycemia or hyperglycemic crisis, random plasma glucose results greater than or equal to 200 mg/dL meet the criteria for diagnosis of diabetes. Reference: Standards of Medical Care in Diabetes 2016, [place] Diabetes Association. Diabetes Care. 2016.39(Suppl 1). LAB BUN 9-24 mg/dL BUN 13 LAB CRET 0.73-1.22 mg/dL Creatinine 0.88 LAB NA 136-144 mmol/L Sodium High 146 LAB K 3.7-5.1 mmol/L Potassium 4.6 LAB CL 97-105 mmol/L Chloride High 109 LAB CO2 22-30 mmol/L CO2 24 LAB AGAP 9-18 mmol/L Anion Gap 13 LAB CA 8.5-10.2 mg/dL Calcium, Total 8.9 LAB GFRAA eGFR- Amer. >60 LAB GFRNAA . eGFR-All Other Races >60 Result Comment: eGFR (Estimated GFR) Units of measure: mL/min/1.73 meters squared eGFR is derived from the reexpressed MDRD Study equation using the following parameters: serum creatinine, age, gender and race. The creatinine assay has been calibrated to be traceable to IDMS. An eGFR <60 mL/min/1.73m2 for >3 months is consistent with chronic kidney disease. Refer to KDOQI guidelines for clinical interpretation. In patients with unstable renal function, e.g. those with acute kidney injury, the eGFR may not accurately reflect actual GFR. Performed By: #### BMP #### [facility] [address] [place], [place] [address] PROGRESS Observed: 09/29/2017 Status: COMPLETED Source: [place] 9:15 AM [facility] REPOSITORY O ID: [id number] Author: Fabiola Harris Service: (none) Author Type: Physician Type: Progress Notes Filed: 09/29/2017 9:18 AM Note Text: Subjective Patient is a 77 year old male presenting with hypertension. Blood Pressure This is a chronic problem. The current episode started more than 1 year ago. The problem has been resolved since onset. The problem is controlled. Pertinent negatives include no chest pain or shortness of breath. There are no associated agents to hypertension. Risk factors for coronary artery disease include dyslipidemia, family history, male gender and sedentary lifestyle. Past treatments include NOAH inhibitors and beta blockers. The current treatment provides significant improvement. There are no compliance problems. Hypertensive end-organ damage includes CAD/IL. Review of Systems Constitutional: Negative. HENT: Negative. Respiratory: Negative. Negative for shortness of breath. Cardiovascular: Negative. Negative for chest pain and leg swelling. Gastrointestinal: Negative. Genitourinary: Recent rx for recurrent bladder cancer Musculoskeletal: Negative. Neurological: Negative. Objective Physical Exam Constitutional: He is oriented to person, place, and time and well-developed, well-nourished, and in no distress. Cardiovascular: Normal rate, regular rhythm and normal heart sounds. Pulmonary/Chest: Effort normal and breath sounds normal. Neurological: He is alert and oriented to person, place, and time. Gait normal. Psychiatric: Affect normal. Nursing note and vitals reviewed. ASSESSMENT/PLAN: 1. Essential hypertension - ICD9: 401.9, ICD10: I10 (primary diagnosis) - good control - Continue current medication(s) - Recommended regular aerobic exercise. - Recommend home blood pressure monitoring, to bring results in on next visit - Goal of BP <130/80 - BASIC METABOLIC PNL 2. Coronary artery disease involving inupiat heart without angina pectoris, unspecified vessel or lesion type - ICD9: 414.01, ICD10: I25.10 stable 3. Acquired hypothyroidism - ICD9: 244.9, ICD10: E03.9 - Instructed patient on importance of taking on an empty stomach either first thing in the morning or at bedtime. - continue current dose of Synthroid 0.100 mg 4. Malignant neoplasm of urinary bladder, unspecified site (HCC) - ICD9: 188.9, ICD10: C67.9 Stable, followed by urology 5. High cholesterol - ICD9: 272.0, ICD10: E78.00 - good control - Continue current medication. - Encouraged following a low fat, low cholesterol diet. - Discussed the benefits of regular aerobic exercise and weight loss. 6. Screening for colon cancer - ICD9: V76.51, ICD10: Z12.11 - FECAL OCCULT BLOOD TEST Fabiola Harris MD CNOV Observed: 09/29/2017 Status: COMPLETED Source: [place] 9:00 AM [facility] REPOSITORY [facility] RUDDY RANDOLPH ([id number]) 1940 M Date Time Provider Department 09/29/17 9:00 AM [facility] During your visit today, we recorded the following information about you: Temperature Blood pressure Weight 97.1 degrees 124/62 78.9 kg Fabiola Harris MD 09/29/2017 9:18 AM Signed Subjective Patient is a 77 year old male presenting with hypertension. Blood Pressure This is a chronic problem. The current episode started more than 1 year ago. The problem has been resolved since onset. The problem is controlled. Pertinent negatives include no chest pain or shortness of breath. There are no associated agents to hypertension. Risk factors for coronary artery disease include dyslipidemia, family history, male gender and sedentary lifestyle. Past treatments include NOAH inhibitors and beta blockers. The current treatment provides significant improvement. There are no compliance problems. Hypertensive end-organ damage includes CAD/IL. Review of Systems Constitutional: Negative. HENT: Negative. Respiratory: Negative. Negative for shortness of breath. Cardiovascular: Negative. Negative for chest pain and leg swelling. Gastrointestinal: Negative. Genitourinary: Recent rx for recurrent bladder cancer Musculoskeletal: Negative. Neurological: Negative. Objective Physical Exam Constitutional: He is oriented to person, place, and time and well-developed, well-nourished, and in no distress. Cardiovascular: Normal rate, regular rhythm and normal heart sounds. Pulmonary/Chest: Effort normal and breath sounds normal. Neurological: He is alert and oriented to person, place, and time. Gait normal. Psychiatric: Affect normal. Nursing note and vitals reviewed. ASSESSMENT/PLAN: 1. Essential hypertension - ICD9: 401.9, ICD10: I10 (primary diagnosis) - good control - Continue current medication(s) - Recommended regular aerobic exercise. - Recommend home blood pressure monitoring, to bring results in on next visit - Goal of BP ANDlt;130/80 - BASIC METABOLIC PNL 2. Coronary artery disease involving inupiat heart without angina pectoris, unspecified vessel or lesion type - ICD9: 414.01, ICD10: I25.10 stable 3. Acquired hypothyroidism - ICD9: 244.9, ICD10: E03.9 - Instructed patient on importance of taking on an empty stomach either first thing in the morning or at bedtime. - continue current dose of Synthroid 0.100 mg 4. Malignant neoplasm of urinary bladder, unspecified site (HCC) - ICD9: 188.9, ICD10: C67.9 Stable, followed by urology 5. High cholesterol - ICD9: 272.0, ICD10: E78.00 - good control - Continue current medication. - Encouraged following a low fat, low cholesterol diet. - Discussed the benefits of regular aerobic exercise and weight loss. 6. Screening for colon cancer - ICD9: V76.51, ICD10: Z12.11 - FECAL OCCULT BLOOD TEST MD Hazel Haji Ma 09/29/2017 9:33 AM Signed Ruddy Randolph presents in office today for Lab Draw. Ordering Provider: Fabiola Harris M.D. Test (s) ordered: BMP (SMA7) Phlebotomy was performed, accessing right antecubital vein. Needle removed intact. Dressing secured. Patient denies discomfort, dizziness, light-headedness or weakness and left the department without assist. Hazel Michel Ma 09/29/2017 9:33 AM Signed Addended by: HAZEL MICHEL MA on: 09/29/2017 09:33 AM Modules accepted: Orders Referring Provider: SELF [200] Allergies As of Date: 09/29/2017 (No Known Allergies) Date Reviewed: 09/29/2017 Reviewed by: Hazel Michel Ma - Fully Assessed Reason for Visit: F/U 6 months [1177] Primary Visit Diagnosis:Essential hypertension [I10] Other Visit Diagnoses:Coronary artery disease involving inupiat heart without angina pectoris, unspecified vessel or lesion type [I25.10] Acquired hypothyroidism [E03.9] Malignant neoplasm of urinary bladder, unspecified site (HCC) [C67.9] High cholesterol [E78.00] Screening for colon cancer [Z12.11] Order(s):BASIC METABOLIC PNL [SQBMP] Order #: [id number] FUTURE FECAL OCCULT BLOOD TEST [SQIFOBT] Order #: [id number] FUTURE desonide (DESOWEN) 0.05 % lotionAs directed, twice daily.Disp: 118 mLRfl: 2 BASIC METABOLIC PNL [SQBMP] Order #: [id number] Prescriptions as of 09/29/2017 Sig: DESONIDE 0.05 % LOTION As directed, twice daily. RAMIPRIL 10 MG CAPSULE Take 1 capsule by mouth once * METOPROLOL SUCCINATE ER 50 MG* Take 1 tablet by mouth once d* SIMVASTATIN 20 MG TABLET Take 1 tablet by mouth once d* LEVOTHYROXINE 100 MCG TABLET Take 1 tablet by mouth once d* ISOSORBIDE MONONITRATE ER 30 * Take 1 tablet by mouth once d* Problem List As Of Date 09/29/2017 Noted Resolved Hypertension [I10] INVALID FOR* More... CAD (coronary artery disease) [I25.10] INVALID FOR* More... Hypothyroid [E03.9] INVALID FOR* More... Bladder cancer [C67.9] INVALID FOR* Prediabetes [R73.03] INVALID FOR*03/10/2017 High cholesterol [E78.00] INVALID FOR* Hypertrophy of prostate without urinary obstruc*INVALID FOR* More... BPH without urinary obstruction [N40.0] INVALID FOR* More... 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 Ordering Provider: Fabiola Harris M.D. Test (s) ordered: BMP (SMA7) Phlebotomy was performed, accessing right antecubital vein. Needle removed intact. Dressing secured. Patient denies discomfort, dizziness, light-headedness or weakness and left the department without assist. [facility] Pres[facility] ordered this encounter Disp Refills Start End DESONIDE 0.05 % LOTION 118 * 2 09/29/2017 Sig: As directed, twice daily. Medications Discontinued During This Encounter desonide 0.05 % lotion 118 * 2 11/12/2013 09/29/2017 Sig: As directed, twice daily. Disc: Reason for discontinue is not on file. Disposition: Return in about 6 months (around 04/01/2018) for f/u and blood. Follow-up and Disposition History Recorded Encounter Status:Closed by FABIOLA HARRIS MD on 09/29/17 OBSOLETE Observed: 08/14/2017 Status: COMPLETED Source: [place] 12:00 AM [facility] REPOSITORY Refill ([facility]) RUDDY RANDOLPH ([id number]) 1940 M Date Time Provider Department 08/14/17 FABIOLA HARRIS [facility] During your visit today, we recorded the following information about you: Cecilia Irene 08/14/2017 9:28 AM Signed Patient phones requesting refills as follows: Pending Prescriptions Disp Refills RAMIPRIL 10 MG CAPSULE 90 capsule 3 Sig: Take 1 capsule by mouth once daily. EILEEN: No METOPROLOL SUCCINATE ER 50 MG TABLET,EXTENDED RELEASE 24 HR 90 tablet 3 Sig: Take 1 tablet by mouth once daily. EILEEN: No SIMVASTATIN 20 MG TABLET 90 tablet 3 Sig: Take 1 tablet by mouth once daily. EILEEN: No Pharmacy confirmed Please review and advise. Cecilia Bragg, RN, RN 08/14/2017 9:32 AM Signed Patient calls for medication refill today. PCP is Fabiola Harris M.D.. Patient was last seen March 10, 2017. Last Blood work was March 10, 2017. Pending Prescriptions Disp Refills RAMIPRIL 10 MG CAPSULE 90 capsule 3 Sig: Take 1 capsule by mouth once daily. EILEEN: No METOPROLOL SUCCINATE ER 50 MG TABLET,EXTENDED RELEASE 24 HR 90 tablet 3 Sig: Take 1 tablet by mouth once daily. EILEEN: No SIMVASTATIN 20 MG TABLET 90 tablet 3 Sig: Take 1 tablet by mouth once daily. EILEEN: No Glucose (mg/dL) Date Value 03/10/2017 99 Potassium (mmol/L) Date Value 03/10/2017 4.8 Sodium (mmol/L) Date Value 03/10/2017 141 Chloride (mmol/L) Date Value 03/10/2017 104 CO2 (mmol/L) Date Value 03/10/2017 23 Creatinine (mg/dL) Date Value 03/10/2017 0.95 BUN (mg/dL) Date Value 03/10/2017 19 Anion Gap (mmol/L) Date Value 03/10/2017 14 Calcium (mg/dL) Date Value 03/10/2017 9.0 No results found for: HBA1C No results found for: INR Cholesterol, Total (mg/dL) Date Value 03/10/2017 131 HDL Cholesterol (mg/dL) Date Value 03/10/2017 43 LDL Cholesterol (mg/dL) Date Value 03/10/2017 68 Triglyceride (mg/dL) Date Value 03/10/2017 102 TSH Date Value Ref Range Status 03/10/2017 1.830 0.400 - 5.500 uU/mL Final Pharmacy has been captured: Yes. Patient prefers: Mail Order. Allergies As of Date: 08/14/2017 (No Known Allergies) Date Reviewed: 03/10/2017 Reviewed by: Fior Marte (Rn) SHANTEL Bragg - Fully Assessed Reason for Visit: Refill Request [94] Order(s):ramipril (ALTACE) 10 mg capsuleTake 1 capsule by mouth once daily.Disp: 90 capsuleRfl: 3 metoprolol succinate ER (TOPROL XL) 50 mg 24 hr tabletTake 1 tablet by mouth once daily.Disp: 90 tabletRfl: 3 simvastatin (ZOCOR) 20 mg tabletTake 1 tablet by mouth once daily.Disp: 90 tabletRfl: 3 Prescriptions as of 08/14/2017 Sig: RAMIPRIL 10 MG CAPSULE Take 1 capsule by mouth once * METOPROLOL SUCCINATE ER 50 MG* Take 1 tablet by mouth once d* SIMVASTATIN 20 MG TABLET Take 1 tablet by mouth once d* LEVOTHYROXINE 100 MCG TABLET Take 1 tablet by mouth once d* ISOSORBIDE MONONITRATE ER 30 * Take 1 tablet by mouth once d* DESONIDE 0.05 % LOTION As directed, twice daily. Problem List As Of Date 08/14/2017 Noted Resolved Hypertension [I10] INVALID FOR* More... CAD (coronary artery disease) [I25.10] INVALID FOR* More... Hypothyroid [E03.9] INVALID FOR* More... Bladder cancer [C67.9] INVALID FOR* Prediabetes [R73.03] INVALID FOR*03/10/2017 High cholesterol [E78.00] INVALID FOR* Hypertrophy of prostate without urinary obstruc*INVALID FOR* More... BPH without urinary obstruction [N40.0] INVALID FOR* More... 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 METOPROLOL SUCCINATE ER 50 MG TABLET* 90 t* 3 08/14/2017 Class: [facility] Route: ORAL Sig: Take 1 tablet by mouth once daily. SIMVASTATIN 20 MG TABLET 90 t* 3 08/14/2017 Class: [facility] Route: ORAL Sig: Take 1 tablet by mouth once daily. Medications Discontinued During This Encounter ramipril (ALTACE) 10 mg capsule 90 c* 3 08/28/2016 08/14/2017 Route: ORAL Sig: Take 1 capsule by mouth once daily. Disc: Reason for discontinue is not on file. metoprolol succinate ER (TOPROL XL) * 90 t* 3 08/28/2016 08/14/2017 Route: ORAL Sig: Take 1 tablet by mouth once daily. Disc: Reason for discontinue is not on file. simvastatin (ZOCOR) 20 mg tablet 90 t* 3 08/28/2016 08/14/2017 Route: ORAL Sig: Take 1 tablet by mouth once daily. Disc: Reason for discontinue is not on file. Encounter Status:Closed by FABIOLA HARRIS MD on 08/14/17 OBSOLETE Observed: 07/25/2017 Status: COMPLETED Source: [place] 12:00 AM [facility] REPOSITORY Refill ([facility]) RUDDY RANDOLPH ([id number]) 1940 M Date Time Provider Department 07/25/17 FABIOLA HARRIS [facility] During your visit today, we recorded the following information about you: Joanne Samples 07/25/2017 3:03 PM Signed Patient phones requesting refill(s) as follows: Pending Prescriptions Disp Refills LEVOTHYROXINE 100 MCG TABLET 90 tablet 3 Sig: Take 1 tablet by mouth once daily. EILEEN: No Last office visit: Visit date not found Next office visit: 09/29/2017 Please review and advise. Joanne Samples Allergies As of Date: 07/25/2017 (No Known Allergies) Date Reviewed: 03/10/2017 Reviewed by: Fior BrandtRn) SHANTEL Bragg - Fully Assessed Reason for Visit: Refill Request [94] Order(s):levothyroxine (SYNTHROID) 100 mcg tabletTake 1 tablet by mouth once daily.Disp: 90 tabletRfl: 3 Prescriptions as of 07/25/2017 Sig: LEVOTHYROXINE 100 MCG TABLET Take 1 tablet by mouth once d* ISOSORBIDE MONONITRATE ER 30 * Take 1 tablet by mouth once d* SIMVASTATIN 20 MG TABLET Take 1 tablet by mouth once d* RAMIPRIL 10 MG CAPSULE Take 1 capsule by mouth once * METOPROLOL SUCCINATE ER 50 MG* Take 1 tablet by mouth once d* DESONIDE 0.05 % LOTION As directed, twice daily. Problem List As Of Date 07/25/2017 Noted Resolved Hypertension [I10] INVALID FOR* More... CAD (coronary artery disease) [I25.10] INVALID FOR* More... Hypothyroid [E03.9] INVALID FOR* More... Bladder cancer [C67.9] INVALID FOR* Prediabetes [R73.03] INVALID FOR*03/10/2017 High cholesterol [E78.00] INVALID FOR* Hypertrophy of prostate without urinary obstruc*INVALID FOR* More... BPH without urinary obstruction [N40.0] INVALID FOR* More... 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 Medications Discontinued During This Encounter levothyroxine (SYNTHROID) 100 mcg ta* 90 t* 3 11/04/2016 07/26/2017 Route: ORAL Sig: Take 1 tablet by mouth once daily. Disc: Reason for discontinue is not on file. Encounter Status:Closed by FABIOLA HARRIS MD on 07/26/17 ALLERGIES ALLERGIES DATE TYPE / CODE NAME / CODE REACTION SEVERITY SOURCE 07/09/2018 Drug No Known Unknown [facility] Allergy/416 Allergies/X86779 Hospital 912796(SNOM 0388(RXNORM) Repository ED CT) Drug NO KNOWN [facility] Class/64135 ALLERGIES Main [place] 1003(SNOMED Repository CT) ENCOUNTERS ENCOUNTERS ADMIT/DISCHARGE ACCOUNT ADMITTING ENCOUNTER LOCATION SOURCE NUMBER CLASS 07/09/2018/07/09/20 [id number] Ambulatory BMSBuilding:[place] [address] [facility] Repository 07/02/2018 [id number] Ambulatory [facility] ing:MFPLAB Repository 06/27/2018 [id number] Ambulatory BMSBuilding:Heather Gomez MS.CF.[facility] Repository 06/26/2018/06/27/20 [id number] Ambulatory [address] Hospital[facility] Hospital ing:CLSPRoom: Repository ICU06 06/17/2018 [id number] Ambulatory [facility] ing:RAD Repository 06/17/2018/06/17/20 [id number] Ambulatory BMSBuilding:Heather [place] 18 [facility] Repository 04/27/2018 [id number] [facility] ing[facility] Repository 04/23/2018 [id number] [facility] ing:MFPLAB Repository 04/14/2018 [id number] [facility] ing:[facility] Repository 04/14/2018 [id number] Ambulatory BMSBuilding:[facility] Repository 03/25/2018/03/25/20 [id number] Ambulatory BMSBuilding:[facility] [place] [address] [facility] Repository 03/18/2018 [id number] Ambulatory BMSBuilding:B Jason MS.[facility] Repository 03/18/2018 [id number] [facility] ing:RAD Repository 03/04/2018 [id number] Ambulatory [facility] ing:[facility] Repository 03/04/2018 [id number] Ambulatory BMSBuilding:[facility] Repository 09/29/2017/10/01/19 [id number] Ambulatory [address] Repository PAYERS PAYERS ENCOUNTER GUARANTOR PAYER SUBSCRIBER SOURCE 07/09/2018 RUDDY MACIAS Jason ISA Insurance:AETNA CROFTCHECKDOB: Community HEMLOCK MCRPolicy [place]: [id number] [id number] Repository [address]Yvr: (330) Date:0541-14-72[phone] (HP) [id number] EDMUNDO ARCHULETA [address]PB: 07/09/2018 Secondary NOT GIVENUNK Jason Insurance:SELF PAY [facility]: Effective Repository Date:2018-07-09 07/02/2018 VINCENT Primary VINCENT [place] [id number] Insurance:AETNA CROFTCHECKDOB: Community HEMLOCK MCRPolicy Number: [id number] [id number] Repository [address]Elr: (330) Date:2584-77-66BC [phone] (HP) [id number] [place] [address]GX: 07/02/2018 Secondary NOT GIVENUNK Jason Insurance:SELF PAY [facility] Number: Effective Repository Date:2018-07-02 06/27/2018 VINCENT Primary VINCENT Jason [id number] Insurance:AETNA CROFTCHECKDOB: Community HEMLOCK MCRPolicy Number: [id number]iBNY8TMEffective Repository 87855Xls: (330) Date:0601-04-55[phone] (HP) [id number] [place] [address]WV: 06/27/2018 Secondary NOT GIVENUNK [place] Insurance:SELF PAY [facility] Number: Effective Repository Date:2018-06-27 06/26/2018 VINCENT Primary VINCENT Jason [id number] Insurance:AETNA CROFTCHECKDOB: Community HEMLOCK MCRPolicy Number: [id number], [place] [id number] Repository [address]Nfa: (330) Date:3226-96-45CK [phone] (HP) [id number] [place] [address]CL: 06/26/2018 Secondary NOT GIVENUNK [place] Insurance:SELF PAY [facility] Number: Effective Repository Date:2018-06-15 06/17/2018 VINCENT Primary VINCJAYLEN Jason [id number] Insurance:AETNA CROFTCHECKDOB: Community HEMLOCK MCRPolicy Number: [id number], [place] [id number] Repository [address]Wki: (330) Date:9193-14-97[phone] () [id number] [place] [address]EN: 06/17/2018 Secondary NOT GIVENUNK [place] Insurance:SELF PAY [facility] Number: Effective Repository Date:2018-06-17 06/17/2018 VINCENT Primary RUDDY [place] [id number] Insurance:AETNA CROFTCHECKDOB: Community HEMLOCK MCRPolicy Number: [id number] Hospital PulaskiBNY8TMEffective Repository 34[address]Wgs: (330) Date:4831-01-95[phone] () [id number] [place] [address]GT: 06/17/2018 Secondary NOT GIVENUNK Jason Insurance:SELF PAY [facility] Number: Effective Repository Date:2018-06-16 04/27/2018 VINCENT Primary RUDDY Jason [id number] Insurance:AETNA LIZDOB: Community HEMLOCK MCRPolicy Number: [id number] Hospital PulaskiBNY8TMEffective Repository 138[address]Kqj: (330) Date:2801-07-33HE [phone] () [id number] [place] [address]JG: 04/27/2018 Secondary NOT GIVENUNK [place] Insurance:SELF PAY [facility] Number: Effective Repository Date:2018-04-27 04/23/2018 VINCENT Primary VINCENT [place] [id number] Insurance:AETNA CROFTCHENOMANDOB: Community HEMLOCK MCRPolicy Number: [id number], [place] [id number] Repository [address]Udw: (330) Date:8873-64-38RH [phone] (HP) [id number] EDMUNDO ARCHULETA [address]YI: 04/23/2018 Secondary NOT GIVENUNK [place] Insurance:SELF PAY [facility] Number: Effective Repository Date:2018-04-23 04/14/2018 VINCENT Primary VINCENT [place] [id number] Insurance:AETNA CROFTCHECKDOB: Community HEMLOCK MCRPolicy Number: [id number], [place] [id number] Repository [address]Xds: (330) Date:4800-11-36FU [phone] (HP) [id number] EDMUNDO ARCHULETA [address]GX: 04/14/2018 Secondary NOT GIVENUNK Jason Insurance:SELF PAY [facility] Number: Effective Repository Date:2018-03-25 04/14/2018 VINCENT Primary VINCENT Jason [id number] Insurance:AETNA CROFTCHECKDOB: Community HEMLOCK MCRPolicy Number: [id number] Hospital PulaskiBNY8TMEffective Repository 20[address]Kqt: (330) Date:0347-39-69CT [phone] (HP) [id number] EDMUNDO ARCHULETA [address]PS: 04/14/2018 Secondary NOT GIVENUNK [place] Insurance:SELF PAY [facility] Number: Effective Repository Date:2018-04-14 03/25/2018 VINCENT Primary VINCENT [place] [id number] Insurance:AETNA CROFTCHECKDOB: Community HEMLOCK MCRPolicy Number: [id number], [place] [id number] Repository [address]Icv: (330) Date:5067-99-69NR [phone] (HP) [id number] [place] [address]XO: 03/25/2018 Secondary NOT GIVENUNK [place] Insurance:SELF PAY [facility] Number: Effective Repository Date:2018-03-25 03/18/2018 VINCENT Primary VINCJAYLEN Jason [id number] Insurance:AETNA CROFTCHECKDOB: Community HEMLOCK MCRPolicy Number: [id number], [place] [id number] Repository [address]Jvp: (330) Date:5099-56-46IS [phone] (HP) [id number] [place] [address]DE: 03/18/2018 Secondary NOT GIVENUNK [place] Insurance:SELF PAY [facility] Number: Effective Repository Date:2018-03-18 03/18/2018 VINCENT Primary VINCJAYLEN Jason [id number] Insurance:AETNA CROFTCHECKDOB: Community HEMLOCK MCRPolicy Number: [id number], [place] [id number] Repository [address]Can: (330) Date:0899-42-47DK [phone] (HP) [id number] [place] [address]WA: 03/18/2018 Secondary NOT GIVENUNK [place] Insurance:SELF PAY [facility] Number: Effective Repository Date:2018-03-06 03/04/2018 VINCENT Primary VINCJAYLEN [place] [id number] Insurance:AETNA CHALOFTALONZODOB: Community HEMLOCK MCRPolicy Number: [id number], [place] [id number] Repository [address]Pip: (330) Date:4010-76-74XZ [phone] (HP) [id number] [place] [address]HR: 03/04/2018 Secondary NOT GIVENUNK Jason Insurance:SELF PAY [facility] Number: Effective Repository Date:2018-03-02 03/04/2018 VINCENT Primary VINCENT [place] [id number] Insurance:AETNA CROFTCHECKDOB: Community HEMLOCK MCRPolicy Number: [id number], [place] [id number] Repository [address]Mml: (330) Date:1069-94-64TZ [phone] () [id number] EDMUNDO ARCHULETA [address]JT: 03/04/2018 Secondary NOT GIVENUNK Jason Insurance[facility]LF [facility]Y [facility] Effective Repository Date:2018-03-04
== END 2018-06-27 09:34 | disposition home or self-care (01) ==
LOC: CLSP 07:29 → ICU 11:27
PROVIDERS: Family Provider Family Medicine; PCP Family Medicine; Referring Provider Internal Medicine Cardiovascular Disease; Visit Provider Internal Medicine Cardiovascular Disease
DX: I25.810 Atherosclerosis of coronary artery bypass graft(s) without angina pectoris (principal); I10 Essential (primary) hypertension; Z79.82 Long term (current) use of aspirin; Z79.899 Other long term (current) drug therapy; Z87.891 Personal history of nicotine dependence; E78.5 Hyperlipidemia, unspecified; Z95.1 Presence of aortocoronary bypass graft; Z95.5 Presence of coronary angioplasty implant and graft; R94.39 Abnormal result of other cardiovascular function study; R07.9 Chest pain, unspecified
CPT/HCPCS: 36415; 80048; 85014; 85018; 85027; 85347; 85610; 85730; 92928; 93005; 93459; 99152; 99153; J7030; J7040; Q9967; C1725; C1760; C1769; C1874; C1887; C1894; C9600

== ENCOUNTER → 2018-07-02 10:12 | Outpatient (CLI) | payer MEDICARE, SELFPAY ==
[2018-06-26 11:41] VITALS: BMI 24.6
[2018-07-02 12:24] LABS: Thyroid Stim Hormone (TSH) 0.62 uIU/mL (0.358-3.74)
== END ==
PROVIDERS: Family Provider Family Medicine; PCP Family Medicine; Visit Provider Family Medicine
DX: E03.9 Hypothyroidism, unspecified (principal)
CPT/HCPCS: 36415; 84443

== ENCOUNTER → 2018-08-11 17:08 | Outpatient (CLI) | payer MEDICARE, SELFPAY ==
[2018-07-09 13:35] VITALS: BMI 24.3
--- NOTE | 2018-08-11 | CYSPIN_PTH ---
PATIENT: COLLEEN HILL LOC: [facility] U#:[id number] AGE/SX: 85/M ROOM: RE08/11/[address]: Dr. Erasto Murphy MD : 1940 BED: DIS: SPEC #: [id number] RECD: 08/12/18 10:00 STATUS: VESTA KIAN #: [id number] KALEE: 08/11/18 00:[address]: Erasto Murphy DEPT: CYTOLOGY RECD BY: Lee Longoria ENTERED: 08/12/18 12:16 SP TYPE: CYSPIN FL OTHR DR: Dr. Tl Guzman MD Tissues: Urine Procedures: Pap Stain (control) Special Stain Group II Cytospin Fluid HEADER OPERATION: Not noted PRE-OP DIAGNOSIS: Bladder CA TISSUE SUBMITTED: Urine for cytology DIAGNOSIS CYTOLOGY Urine for cytology (cytospin): Occasional atypical urothelial cells are present. AM:irene 1/17/19 COMMENT The findings are nonspecific and could represent a variety of conditions including infection, urolithiasis, instrumentation and low grade urothelial neoplasm. Clinical correlation is necessary. 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 CYTOLOGY STUDY Slides are reviewed. CYTOLOGY GROSS Received is 10 ml of yellow cloudy fluid labeled with the patient's name and and designated per the requisition as urine. Submitted for cytology preparation. 08/12/18 TC:? CPT: 49071
[2018-08-11 17:56] LABS: Bacteria 0 SEEN /hpf (None Seen); Mucous, Urine 0 SEEN /hpf (<or=2+); Red Blood Cells-Urine 0 SEEN /hpf (0-5)
[2018-08-11 18:37] LABS: Color, Urine Yellow (Yellow); Glucose, Dipstick Normal (Normal); Ketone-Dipstick Negative (Negative); Leukocyte Esterase-Dipstick 25 /ul (Negative); Nitrite-Dipstick Negative (Negative); Occult Blood-Urine 25 /ul (Negative); Protein-Dipstick Negative (Negative); Urine Bilirubin Dipstick Negative (Negative); Urine Clarity Clear (Clear); Urine Urobilinogen Normal (Normal)
[2018-08-11 19:10] LABS: Fine Granular Cast- Urine 0-5 SEEN /lpf (0-5)
[2018-08-11 19:12] LABS: Renal Epithelial Cells 0 SEEN /hpf (0-5); White Blood Cells 0-5 SEEN /hpf (0-5)
[2018-08-11 19:13] LABS: Squamous Epithelial Cells - UA 0-5 SEEN /hpf (0-5)
[2018-08-12 09:56] LABS: Cytology, Body Fluid / CSF SEE PATHOLOGY REPORT
== END ==
PROVIDERS: Family Provider Family Medicine; PCP Family Medicine; Referring Provider Urology; Visit Provider Urology
DX: C67.9 Malignant neoplasm of bladder, unspecified (principal)
CPT/HCPCS: 81001; 88108; 88313

== ENCOUNTER → 2018-11-03 08:43 | Outpatient (CLI) | payer MEDICARE, SELFPAY ==
[2018-07-09 13:35] VITALS: BMI 24.3
== END ==
PROVIDERS: Family Provider Family Medicine; PCP Family Medicine; Referring Provider Family Medicine; Visit Provider Family Medicine
DX: R07.9 Chest pain, unspecified (principal); I25.10 Atherosclerotic heart disease of native coronary artery without angina pectoris; I10 Essential (primary) hypertension; E78.5 Hyperlipidemia, unspecified; R94.39 Abnormal result of other cardiovascular function study; E03.9 Hypothyroidism, unspecified

== ENCOUNTER → 2018-12-15 16:43 | Outpatient (CLI) | payer MEDICARE, SELFPAY ==
[2018-11-06 09:55] VITALS: BMI 25.1
--- NOTE | 2018-12-15 | IMM_PTH ---
PATIENT: COLLEEN HILL LOC: [facility] U#:[id number] AGE/SX: 85/M ROOM: RE12/15/[address]: Dr. Erasto Murphy MD : 1940 BED: DIS: SPEC #: [id number] RECD: 12/17/18 14:13 STATUS: VESTA REZain #: [id number] KALEE: 12/15/18 00:[address]: Erasto Murphy DEPT: IMMUNOHISTOCHEMISTRY RECD BY: Rosario Zambrano ENTERED: 12/17/18 14:14 SP TYPE: IMMUNO OTHR DR: Dr. Tl Guzman MD Tissues: Urinary bladder, NOS Procedures: CK20 (add) MACRO (add) P53 (add) FACTOR VIII (add) CD44 (add) CK7 (initial) PHYSICIAN & INSTITUTION [place] [address] SPECIMEN INFORMATION: Tissue Source: Urinary bladder biopsy Clinical Info: Bladder lesion Specimen Number: [id number] CPT code: 88558, 28143 x5 METHODOLOGY: Deparaffinized sections of prefer/formalin-fixed tissue or PAP/DQ stained slides are incubated with monoclonal/polyclonal antibodies/oligonucleotide probes. Localization is made via biotin free immunoperoxidase method. Appropriate controls are performed and reacted as expected. Results on target cell population are indicated in the following table: RESULTS: ANTIBODY / CLONE RESULT CK7 (OV-TL12/30) negative CK20 (KS20.8) negative anti-CD44 (SP37) positive P53 (DO-7) negative Macro (HAM-56) positive Factor VIII (R Ag) positive These tests were developed and their performance characteristics determined by [facility]. They may not have been cleared or approved by the U.S. Food and Drug Administration. The FDA has determined that such clearance or approval is not necessary. INTERPRETATION: Urinary bladder biopsy: Acute and chronic inflammation. AM:irene 12/18/18
--- NOTE | 2018-12-15 11:30 | BLA_PTH ---
PATIENT: COLLEEN HILL LOC: [facility] U#:[id number] AGE/SX: 85/M ROOM: RE12/15/[address]: Dr. Erasto Murphy MD : 1940 BED: DIS: SPEC #: [id number] RECD: 12/15/18 16:43 STATUS: VESTA LANGSTON #: [id number] KALEE: 12/15/18 11:[address]: Erasto Murphy DEPT: SURGICAL PATHOLOGY RECD BY: Lee Longoria ENTERED: 12/16/18 09:27 SP TYPE: BLADDER BX OT DR: Dr. Tl Guzman MD Tissues: Urinary bladder, NOS Procedures: Surgery Specimen Level IV HEADER OPERATION: Bladder biopsy PRE-OP DIAGNOSIS: Bladder lesion, bladder CA TISSUE SUBMITTED: Bladder biopsy MICROSCOPIC DIAGNOSIS Urinary bladder lesion, biopsy: Mucosal ulceration with marked acute inflammation, benign histiocytic reaction and focal mild chronic inflammation. No evidence of malignancy. See comment. AM:irene 12/17/18 COMMENT Immunohistochemistry ([id number]) supports the above diagnosis. MICROSCOPIC DESCRIPTION Slides are reviewed. GROSS DESCRIPTION Received is one container labeled with the patient's name and not further designated. The specimen consists of multiple minute fragments of light clark soft tissue that in aggregate measure 0.1 x <0.1 x <0.1 cm. The specimen is submitted in its entirety in one cassette. / AM:irene 12/16/18 TC:2 CPT: 49614
== END ==
PROVIDERS: Family Provider Family Medicine; PCP Family Medicine; Referring Provider Urology; Visit Provider Urology
DX: N32.9 Bladder disorder, unspecified (principal)
CPT/HCPCS: 88305; 88341; 88342

== ENCOUNTER → 2019-03-04 08:25 | Outpatient (CLI) | payer MEDICARE, SELFPAY ==
[2018-11-06 09:55] VITALS: BMI 25.1
[2019-03-04 10:02] LABS: Hematocrit 43.2 % (40-54); Hemoglobin 15.3 g/dL (13.0-16.5); Mean Corp Hgb Conc 35.4 g/dL (32-36); Mean Corpuscular Hgb 31.3 pg (27.0-32.0); Mean Corpuscular Volume 88.3 fL (80-94); Mean Platelet Vol. 8.7 fl (6.2-12.0); Platelet Count 172 K/mm3 (150-450); RBC Distribution Width CV 12.9 % (11.6-14.6); RBC Distribution Width SD 41.5 fl (35.1-43.9); Red Blood Count 4.89 M/mm3 (4.6-6.2); White Blood Count 7.1 K/mm3 (4.4-11.0)
[2019-03-04 10:37] LABS: ALB/GLOB Ratio 1.2 RATIO (0.9-2.4); AST(SGOT) 20 U/L (15-37); Alanine Aminotransfer ALT/SGPT 32 U/L (16-61); Albumin, Serum 3.9 g/dL (3.2-5.0); Alkaline Phosphatase 89 U/L (45-117); Anion Gap 9 (5-15); BUN 16 mg/dL (7-18); Calcium,Total 8.7 mg/dL (8.5-10.1); Chloride 109 mmol/L (98-107); Cholesterol 102 mg/dL (200); EST Glomerular Filtration Rate 77 mL/min (>60); Est Glom Filt Rate - Afr Amer 93 mL/min (>60); Globulin 3.3 g/dL (2.2-4.2); Glucose 105 mg/dL (74-106); High Density Lipoprotein 42 mg/dL; Potassium 4.8 mmol/L (3.5-5.1); Protein, Total 7.2 g/dL (6.4-8.2); Sodium Level 143 mmol/L (136-145); Thyroid Stim Hormone (TSH) 0.31 uIU/mL (0.358-3.74); Triglycerides 82 mg/dL; Very Low Density Lipoprotein 16 mg/dL (5-40)
== END ==
PROVIDERS: Family Provider Family Medicine; PCP Family Medicine; Referring Provider Family Medicine; Visit Provider Family Medicine
DX: E03.9 Hypothyroidism, unspecified (principal); I25.10 Atherosclerotic heart disease of native coronary artery without angina pectoris
CPT/HCPCS: 36415; 80053; 80061; 84443; 85027

== ENCOUNTER 2019-06-12 10:17 | Emergency (ER) | payer MEDICARE, SELFPAY ==
[2019-06-07 15:52] VITALS: BMI 24.3
[2019-06-12 10:18] VITALS: BP 118/71; PULSE 94; RESP 16; TEMP 36.7; O2SAT 100; BMI 24.1
[2019-06-12 10:53] VITALS: RESP 16
--- NOTE | 2019-06-12 11:06 | RAD_ITS ---
STUDY: X-RAY CHEST REASON FOR EXAM: Male, 79 years old. Stomach pain TECHNIQUE: Frontal and lateral views COMPARISON: June 17, 2018. FINDINGS: The lungs are hyperaerated. There is no demonstrated pleural abnormality. Normal size heart. Normal mediastinum and francia. Normal visualized pulmonary arteries. Normal visualized aortic arch and descending thoracic aorta. Mild degenerative changes of the thoracic spine. Normal visualized ribs, clavicles, and shoulders. There is no demonstrated abnormality of the visualized soft tissue structures of the upper abdomen. RAD/Chest PA and Lateral IMPRESSION: Hyperaeration. Electronically Signed: César Clark DO at 12:06 EST Tel [phone], Service support ,
--- NOTE | 2019-06-12 11:06 | EKG12_ITS ---
Test Reason : COLD Blood Pressure : / mmHG Vent. Rate : 060 BPM Atrial Rate : 060 BPM P-R Int : 130 ms QRS Dur : 090 ms QT Int : 412 ms P-R-T Axes : 033 -24 058 degrees QTc Int : 412 ms Normal sinus rhythm Nonspecific T wave abnormality Abnormal ECG Confirmed by YOSELIN TRIVEDI, SHAILESH ([id number]), editor managing newspaper RYAN AYERS ([id number]) on 06/15/2019 11:33:50 AM Referred By: MARY Confirmed By:SHAILESH WYATT MD
[2019-06-12 11:24] LABS: Absolute Lymphocyte Count 1.73 X10^3/uL (0.83-4.51); Absolute Neutrophil Count 4.7 X10^3/uL (2.0-7.7); Basophil# 0.05 X10^3/uL; Basophil% 0.7 % (0-1); Eosinophils% 2.7 % (0-5); Hematocrit 47.4 % (40-54); Hemoglobin 16.8 g/dL (13.0-16.5); Lymphocyte # 1.73 X10^3/ul (4.0); Lymphocyte % 23.2 % (19-41); Mean Corp Hgb Conc 35.4 g/dL (32-36); Mean Corpuscular Hgb 31.2 pg (27.0-32.0); Mean Corpuscular Volume 88.1 fL (80-94); Mean Platelet Vol. 8.2 fl (6.2-12.0); Monocyte# 0.79 X10^3/uL; Monocyte% 10.6 % (0-10); NRBC Flagged by Analyzer 0 % (0-5); Neutrophil # 4.67 X10^3/uL (2.7-7.7); Neutrophil % 62.5 % (47-70); Platelet Count 177 K/mm3 (150-450); RBC Distribution Width CV 12.7 % (11.6-14.6); Red Blood Count 5.38 M/mm3 (4.6-6.2); White Blood Count 7.5 K/mm3 (4.4-11.0)
[2019-06-12 11:40] LABS: Anion Gap 6 (5-15); BUN 24 mg/dL (7-18); BUN/Creat Ratio 18.9 RATIO (10-20); Calcium,Total 9.6 mg/dL (8.5-10.1); Chloride 104 mmol/L (98-107); Creatinine, Serum 1.27 mg/dL (0.70-1.30); EST Glomerular Filtration Rate 58 mL/min (>60); Est Glom Filt Rate - Afr Amer 71 mL/min (>60); Estimated Creatinine Clearance 47.94 ml/min; Glucose 131 mg/dL (74-106); Potassium 4.3 mmol/L (3.5-5.1); Sodium Level 137 mmol/L (136-145)
[2019-06-12] MEDS: 0.9% Normal Saline 1,000 ML 150 ML IV (12:14)
--- NOTE | 2019-06-12 12:58 | ED.VIS.GEN ---
History of Present Illness Chief Complaint: Cold Sx Detail of Chief Complaint: Bronchitis, nausea, vomiting Informant: Patient, Family Onset: Weeks Current Severity: Moderate Maximum Severity: Moderate Narrative: Patient presents with bronchitis type symptoms. He states he is been ill for the past 3 or 4 weeks. He is had a cough but not bringing up anything. [facility] and given a 10-day course of amoxicillin. Patient stopped the medication yesterday stating it was making him feel nauseated and vomit. He felt lightheaded with the medication. He states he does note that he has been getting short of breath after just a few steps but this has been ongoing for several weeks as well. - Past Medical History (1) Atherosclerotic heart disease of [place] coronary artery without angina pectoris Status: Chronic (2) Essential hypertension Status: Chronic (3) Presence of aortocoronary bypass graft Status: Chronic Comment: SLOAN to LAD, SVG to first diagonal, and SVG to RCA in 10/23/00; (4) Presence of stent in coronary artery Status: Chronic Comment: PTCA/Stent x3 of the prox,mid,distal RCA 09/07/01 @ [place]; PCI/CHANDAN to the mid D1 06/26/18 (5) Pure hypercholesterolemia Status: Chronic Past Medical History - Allergies and Home Meds Allergies/Adverse Reactions: Allergies No Known Allergies Allergy (Verified 06/12/19 10:18) Primary Care Physician: Robson Guzman MD [Primary Care Provider] - 3-5 Days if not improving Prior records reviewed: Yes Lives: Spouse/ Significant Other Smoking Status: Former smoker Review of Systems General: Denies: Chills, Fever Eyes: Denies: Visual changes - bilaterally ENT: Denies: Bilateral ear pain Cardiovascular: Denies: Chest pain, Palpitations Respiratory: Reports: Dyspnea, Cough Gastrointestinal: Reports: Nausea, Vomiting Genitourinary: Denies: Dysuria Musculoskeletal: Denies: Extremity Pain Skin: Denies: Rash Neurological: Reports: Weakness - Dentalized weakness. Denies: Headache Hematologic: Denies: Easy bruising, Easy bleeding Allergy: Denies: Uticaria Physical Exam Vital Signs/Narrative: Vital Signs Temp Pulse Resp BP Pulse Ox 06/12/19 10:53 16 06/12/19 10:18 98.1 F 94 16 118/71 100 Inital Vital Signs reviewed: Yes General: Well nourished, Well developed Head: Normocephalic ENT: Moist mucous membranes, TM's clear Neck: Supple Cardiovascular: Regular rate, Regular rhythm Respiratory: No distress, CTA bilaterally Abdomen: Soft, Nontender, Nondistended Extremities: Nontender, No edema Skin: Normal color, No rash Neurological: Alert, Oriented x3 Psychological: Normal affect Diagnostic/Tx/Re-eval Impressions Chest X-Ray 06/12/19 11:06 IMPRESSION: Hyperaeration. Electronically Signed: César Clark DO at 12:06 EST Tel [phone], Service support , 06/12/19 11:06 Chest PA and Lateral [RAD] Stat Laboratory Results 06/12/19 06/12/19 11:15 11:15 WBC 7.5 RBC 5.38 Hgb 16.8 H Hct 47.4 MCV 88.1 MCH 31.2 MCHC 35.4 RDW Std Deviation 41.0 RDW Coeff of Daron 12.7 Plt Count 177 MPV 8.2 Immature Gran % (Auto) 0.300 Neut % (Auto) 62.5 Lymph % (Auto) 23.2 [place] % (Auto) 10.6 H Eos % (Auto) 2.7 Baso % (Auto) 0.7 Absolute Neuts (auto) 4.7 Absolute Lymphs (auto) 1.73 Nucleated RBC % 0 Sodium 137 Potassium 4.3 Chloride 104 Carbon Dioxide 27.0 Anion Gap 6 BUN 24 H Creatinine 1.27 Estim Creat Clear Calc 47.94 Est GFR (MDRD) Af Amer 71 Est GFR (MDRD) Non-Af 58 L BUN/Creatinine Ratio 18.9 Glucose 131 H Calcium 9.6 Troponin I 0.019 - EKG Initial EKG Interpretation: Sinus Rhythm - Sinus at 60 with T wave flattening. No acute ST change. - Medical Decision Making He was given IV fluids here. On repeat evaluation he is resting comfortably. Advised him that his chest x-ray is unremarkable. I do not believe he needs antibiotics and he can stop the amoxicillin he was previously given. He is encouraged to increase fluids of the next several days as he does have a degree of dehydration. ED Disposition - Plan for ED Patient: Disposition: Home or Assisted Living Diagnosis: Bronchitis, Dehydration Instructions: Dehydration, BRONCHITIS, No Antibiotic (Adult) Referrals: Robson Guzman MD [Primary Care Provider] - 3-5 Days if not improving
[2019-06-12 13:19] VITALS: BP 127/71; PULSE 59; RESP 18
[2019-06-14 11:25] LABS: BNP,B-Type NATRIURETIC PEPTIDE 9.4 pg/mL (0-100)
== END 2019-06-12 13:19 | disposition home or self-care (01) ==
PROVIDERS: Emergency Provider Emergency Medicine; Family Provider Family Medicine; PCP Family Medicine
DX: J40 Bronchitis, not specified as acute or chronic (principal); E86.0 Dehydration; E78.00 Pure hypercholesterolemia, unspecified; I10 Essential (primary) hypertension; I25.10 Atherosclerotic heart disease of native coronary artery without angina pectoris; Z87.891 Personal history of nicotine dependence; Z95.1 Presence of aortocoronary bypass graft; Z95.5 Presence of coronary angioplasty implant and graft; R06.02 Shortness of breath
CPT/HCPCS: 71046; 80048; 83880; 84484; 85025; 93005; 96360; 96361; 99284; J7030; A4216

== ENCOUNTER → 2019-07-05 08:24 | Outpatient (CLI) | payer MEDICARE, SELFPAY ==
[2019-06-12 10:18] VITALS: BMI 24.1
[2019-07-05 11:20] LABS: Thyroid Stim Hormone (TSH) 1.04 uIU/mL (0.358-3.74)
== END ==
PROVIDERS: Family Provider Family Medicine; PCP Family Medicine; Visit Provider Family Medicine
DX: E03.9 Hypothyroidism, unspecified (principal)
CPT/HCPCS: 36415; 84443

== ENCOUNTER → 2019-12-02 | Outpatient (CLI) | payer MEDICARE, SELFPAY ==
[2019-10-04 09:13] VITALS: BMI 24.3
[2019-12-02 11:17] LABS: ALB/GLOB Ratio 1.5 RATIO (0.9-2.4); AST(SGOT) 23 U/L (15-37); Alanine Aminotransfer ALT/SGPT 34 U/L (16-61); Albumin, Serum 4.1 g/dL (3.2-5.0); Alkaline Phosphatase 93 U/L (45-117); Anion Gap 5 (5-15); BUN 14 mg/dL (7-18); BUN/Creat Ratio 16.1 RATIO (10-20); Calcium,Total 8.7 mg/dL (8.5-10.1); Chloride 111 mmol/L (98-107); Creatinine, Serum 0.87 mg/dL (0.70-1.30); EST Glomerular Filtration Rate 90 mL/min (>60); Est Glom Filt Rate - Afr Amer 109 mL/min (>60); Globulin 2.8 g/dL (2.2-4.2); Glucose 94 mg/dL (74-106); PSA,Total - Annual Screen 0.45 ng/mL (0.00-4.00); Potassium 4.5 mmol/L (3.5-5.1); Protein, Total 6.9 g/dL (6.4-8.2); Sodium Level 143 mmol/L (136-145)
== END | disposition home or self-care (01) ==
LOC: MFPLAB 09:19
PROVIDERS: PCP Family Medicine; Visit Provider Family Medicine
DX: I25.10 Atherosclerotic heart disease of native coronary artery without angina pectoris (principal); Z85.51 Personal history of malignant neoplasm of bladder; Z12.5 Encounter for screening for malignant neoplasm of prostate
CPT/HCPCS: 36415; 80053; 84153; G0103

== ENCOUNTER → 2020-01-03 | Outpatient (CLI) | payer MEDICARE, SELFPAY ==
[2019-10-04 09:13] VITALS: BMI 24.3
--- NOTE | 2020-01-03 | FLU_PTH ---
PATIENT: COLLEEN HILL LOC: [facility] U#:[id number] AGE/SX: 79/M ROOM: RE01/03/[address]: Dr. Erasto Murphy MD : 1940 BED: DIS: 01/03/2020 SPEC #: [id number] RECD: 01/03/20 16:00 STATUS: VESTA KIAN #: [id number] KALEE: 01/03/20 00:[address]: Erasto Murphy DEPT: CYTOLOGY RECD BY: Raúl Pedro ENTERED: 01/04/20 07:53 SP TYPE: Fluid OTHR DR: Dr. Tl Guzman MD Tissues: Urine Procedures: Special Stain Group II Cytospin Fluid HEADER OPERATION: Not noted PRE-OP DIAGNOSIS: Malignant neoplasm of lateral wall of bladder TISSUE SUBMITTED: Urine for cytology DIAGNOSIS CYTOLOGY Urine for cytology (cytospin): Atypical urothelial cells noted, highly suspicious for carcinoma. Acute inflammation. See comment. SJ:irene 01/04/20 COMMENT Clinical correlation and appropriate follow up are necessary. 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 Case has been reviewed in consultation with Dr. Cunningahm who concurs with the above diagnosis. IDC:AM CYTOLOGY STUDY Slides are reviewed. CYTOLOGY GROSS Received is 60 ml of dark yellow, hazy fluid labeled with the patient's name and and designated per the requisition as urine. Submitted for cytology preparation. / irene 01/03/20 TC:5 CPT: 59969
[2020-01-03 17:25] LABS: Cytology, Body Fluid / CSF SEE PATHOLOGY REPORT
== END | disposition home or self-care (01) ==
LOC: LABSPEC 17:01
PROVIDERS: PCP Family Medicine; Visit Provider Urology
DX: C67.2 Malignant neoplasm of lateral wall of bladder (principal)
CPT/HCPCS: 88108; 88313

== ENCOUNTER 2020-01-14 06:17 | Day surgery (SDC) | payer MEDICARE, SELFPAY ==
[2019-10-04 09:13] VITALS: BMI 24.3
--- NOTE | 2020-01-14 | IMM_PTH ---
PATIENT: COLLEEN HILL [place] [facility] [id number] AGE/SX: 79/M ROOM: RE01/14/[address]: Dr. Erasto Murphy MD : 1940 BED: DIS: 01/14/2020 SPEC #: [id number] RECD: 01/17/20 12:20 STATUS: VESTA REZain #: [id number] KALEE: 01/14/20 00:[address]: Erasto Murphy DEPT: IMMUNOHISTOCHEMISTRY RECD BY: Rosario Zambrano ENTERED: 01/17/20 12:29 SP TYPE: IMMUNO OTHR DR: Dr. Tl Guzman MD Tissues: Urinary bladder, NOS Procedures: CK20 (add) CK5-6 (add) MACRO (add) CK7 (initial) PHYSICIAN & INSTITUTION [place] [id number] SPECIMEN INFORMATION: Tissue Source: Bladder biopsy Clinical Info: Malignant neoplasm lateral wall of bladder Specimen Number: [id number] CPT code: 75167, 55737 x4 METHODOLOGY: Deparaffinized sections of prefer/formalin-fixed tissue or PAP/DQ stained slides are incubated with monoclonal/polyclonal antibodies/oligonucleotide probes. Localization is made via biotin free immunoperoxidase method. Appropriate controls are performed and reacted as expected. Results on target cell population are indicated in the following table: RESULTS: ANTIBODY / CLONE RESULT CK7 (OV-TL12/30) negative CK20 (KS20.8) negative Macro (HAM-56) positive CK5-6 (D5 & 1684) positive, urothelium P53 (DO-7) positive, rare These tests were developed and their performance characteristics determined by [facility]. They may not have been cleared or approved by the U.S. Food and Drug Administration. The FDA has determined that such clearance or approval is not necessary. The above immunohistochemical/dualISH markers are ordered and reviewed by the Pathologist. INTERPRETATION: Urinary bladder, biopsy: No evidence of malignancy. AM:irene 01/17/20
[2020-01-14 07:01] VITALS: BP 139/79; PULSE 67; RESP 16; TEMP 36.3; O2SAT 100; BMI 23.4
[2020-01-14] MEDS: Lactated Ringers 1,000 ML 75 ML IV (07:22)
--- NOTE | 2020-01-14 08:50 | BLA_PTH ---
PATIENT: COLLEEN HILL [place]: [facility] [place][id number] AGE/SX: 79/M ROOM: RE01/14/[address]: Dr. Erasto Murphy MD : 1940 BED: DIS: 01/14/2020 SPEC #: [id number] RECD: 01/14/20 10:10 STATUS: VESTA REZain #: [id number] KALEE: 01/14/20 08:[address]: Erasto Murphy DEPT: SURGICAL PATHOLOGY RECD BY: Lee Longoria ENTERED: 01/14/20 13:07 SP TYPE: BLADDER BX OTHR DR: Dr. Tl Guzman MD Tissues: Urinary bladder, NOS Procedures: Surgery Specimen Level IV HEADER OPERATION: Cystoscopy, bladder biopsy, fulguration bladder tumor PRE-OP DIAGNOSIS: Malignant neoplasm lateral wall of bladder; acute prostatitis; dysuria TISSUE SUBMITTED: Bladder biopsy MICROSCOPIC DIAGNOSIS Lateral wall of urinary bladder, biopsy: Chronic inflammation with focal acute inflammation. Granulation. No definite evidence of malignancy. See comment. AM:irene 01/17/20 COMMENT Immunohistochemistry ([id number]) supports the above diagnosis. Case has been reviewed in consultation with Dr. Negron who concurs with the above diagnosis. IDC:SJ MICROSCOPIC DESCRIPTION Slides are reviewed. GROSS DESCRIPTION Received in fixative is one container labeled with the patient's name and designated bladder biopsy. The specimen consists of two minute fragments of light clark soft tissue that in aggregate measure 0.1 x <0.1 x <0.1 cm. The specimen is totally submitted in one cassette. / AM:irene 01/14/20 TC:3 CPT: 86990
--- NOTE | 2020-01-14 08:50 | FLU_PTH ---
PATIENT: COLLEEN HILL LOC: [facility] [place] U#:[id number] AGE/SX: 79/M ROOM: RE01/14/[address]: Dr. Erasto Murphy MD : 1940 BED: DIS: 01/14/2020 SPEC #: [id number] RECD: 01/14/20 10:10 STATUS: VESTA KIAN #: [id number] KALEE: 01/14/20 08:[address]: Erasto Murphy DEPT: CYTOLOGY RECD BY: Lee Longoria ENTERED: 01/14/20 13:06 SP TYPE: Fluid OTHR DR: Dr. Tl Guzman MD Tissues: A - Kidney, NOS B - Kidney, NOS Procedures: Special Stain Group II Surgery Specimen Level IV Cytospin Fluid HEADER OPERATION: Cystoscopy, bladder biopsy, fulguration bladder tumor PRE-OP DIAGNOSIS: Malignant neoplasm, lateral wall of bladder; acute prostatitis; dysuria TISSUE SUBMITTED: A - Left kidney cell washings for cytology, B - Right kidney cell washings for cytology DIAGNOSIS CYTOLOGY A. Left kidney cell washings: Urothelial cells in clusters with mild atypia, favor benign. B. Right kidney cell washings: Urothelial cells in clusters with mild atypia, favor benign. AM:irene 01/17/20 COMMENT Reference is made to the patient's urinary bladder TUR from 2017 ([id number]) in which minute fragment of high grade urothelial carcinoma was identified. Case has been reviewed in consultation with Dr. Negron who concurs with the above diagnosis. IDC:SJ CYTOLOGY STUDY Slides are reviewed. CYTOLOGY GROSS A - Received is 10 ml of light yellow cloudy fluid labeled with the patient's name and and designated per the requisition as left kidney. Submitted for cytology preparation including cell block. B - Received is 2 ml of light yellow cloudy fluid labeled with the patient's name and and designated per the requisition as right kidney. Submitted for cytology preparation including cell block. / irene 01/14/20 TC:? CPT: 43643 x2, 65620 x2
--- NOTE | 2020-01-14 08:50 | PCM.HP.STD ---
Problem List (1) Bladder cancer Status: Acute Qualifiers: Bladder location: overlapping sites Qualified Code(s): C67.8 - Malignant neoplasm of overlapping sites of bladder History of Present Illness Date of Admission: 01/14/20 Chief Complaint: Bladder cancer The patient is a 79 year old male with a history of bladder cancer recent cystoscopy was negative except for some erythematous lesions cytology came back positive with cancer cells so today we can do a cystoscopy bladder biopsy fulguration or also can perform bilateral retrograde pyelograms and selective cytologies. Past Medical History Past Medical History (Chronic Problems): Chronic Problems (Last Reviewed 10/04/19 @ 09:14 by Angélica Howard) Pure hypercholesterolemia (Chronic) Essential hypertension (Chronic) Presence of stent in coronary artery (Chronic ~06/26/18) PTCA/Stent x3 of the prox,mid,distal RCA 09/07/01 @ [place]; PCI/CHANDAN to the mid D1 06/26/18 Presence of aortocoronary bypass graft (Chronic ~10/23/00) SLOAN to LAD, SVG to first diagonal, and SVG to RCA in 10/23/00; Atherosclerotic heart disease of [place] coronary artery without angina pectoris (Chronic) Medical History: Medical History (Last Reviewed 10/04/19 @ 09:14 by Angélica Howard) Pure hypercholesterolemia (Chronic) E78.00 Essential hypertension (Chronic) I10 Atherosclerotic heart disease of [place] coronary artery without angina pectoris (Chronic) I25.10 Asthma J45.909 Stroke I63.9 Bladder cancer C67.9 Hypothyroidism E03.9 Hyperlipidemia (Inactive) E78.5 Hypertension (Inactive) I10 Allergies No Known Allergies Allergy (Verified 01/11/20 08:06) Home Medications: Ambulatory Orders Medication Instructions Recorded Levothyroxine [Synthroid] 100 mcg PO MOTUWETHFRSA 02/24/16 Isosorbide Mononitrate [Isosorbide 30 mg PO DAILY 11/03/16 Mononitrate ER] Aspirin E.C. [Ecotrin] 81 mg PO DAILY@0800 tab 06/27/18 atorvastatin 40 mg tablet 40 mg PO QHS #90 tab 05/31/19 ramipril 10 mg capsule 10 mg PO BID #180 cap 08/30/19 Surgical History: Surgical History (Last Reviewed 10/04/19 @ 09:14 by Angélica Howard) Presence of stent in coronary artery (Chronic) Onset Date: ~06/26/18 Z95.5 PTCA/Stent x3 of the prox,mid,distal RCA 09/07/01 @ [place]; PCI/CHANDAN to the mid D1 06/26/18 Presence of aortocoronary bypass graft (Chronic) Onset Date: ~10/23/00 Z95.1 SLOAN to LAD, SVG to first diagonal, and SVG to RCA in 10/23/00; Postsurgical percutaneous transluminal coronary angioplasty (PTCA) status Onset Date: ~09/07/01 Z98.61 PTCA/Stent x2 of the RCA 09/07/01 @ [place] History of cystoscopy Z98.890 Surgical History: no surgical history Smoking Status: Former smoker Tobacco Use: Non-smoker Review of Systems Constitutional: Denies: Chills, Fever, Weight Change HEENT: Denies: Head Aches, Sinus Congestion, Sinus Drainage Cardiovascular: Denies: Chest Pain, Palpitations Respiratory: Denies: Cough, Shortness of breath at rest, Sputum production Gastrointestinal: Denies: Abdominal Pain, Nausea, Vomiting Genitourinary: Denies: Dysuria Musculoskeletal: Denies: Joint Pain, Joint Tenderness Skin: Denies: Rash, Wounds Neurological: Denies: Numbness, Tingling, Focal weakness Psychiatric: Denies: Anxiety, Depression, Homicidal Ideations, Suicidal Ideations Hematologic/ Lymphatic: Denies: Easy Bruising, Easy Bleeding VTE Information - Inpt Only VTE Present on Admission: No VTE Mechan Device Prophylaxis: SCD's Patient Problems: Active and Suspected Problems (Last Reviewed 10/04/19 @ 09:14 by Angélica Howard) Bladder cancer (Acute) - Physical Exam Vitals/I&O's: Vital Signs Temp Pulse Resp BP Pulse Ox 97.3 F L 67 16 139/79 H 100 01/14/20 07:01 01/14/20 07:01 01/14/20 07:01 01/14/20 07:01 01/14/20 07:01 Oxygen Delivery Method Room Air Weight: 74.2 kg Body Mass Index (BMI) 23.4 General: Alert, Oriented x3, Cooperative HEENT: Atraumatic, PERRLA, EOMI, Normocephalic Neck: Supple, No JVD, Negative Carotid Bruits Lungs: Clear to auscultation, Normal air movement Cardiovascular: Regular rate, No murmurs Abdomen: Bowel Sounds Present, Soft, Non Tender Extremities: No edema, Capillary Refill Less than 3 Seconds Skin: No rashes, No breakdown Musculoskeletal: No Tenderness to Palpation of Joints or Extremities Neurological: Cranial nerves II-XII grossly intact Psych/Mental Status: Normal Affect, Appropriate Laboratory Results 01/13/20 09:30: COVID-19 ([facility]ESU) Not Detected Current Medications Cefazolin Sodium 2 gm/ Sodium (Chloride) 110 mls @ 150 mls/hr IV PREOP ONE Stop: 01/14/20 09:33 Lactated Ringer's () 1,000 mls @ 75 mls/hr IV .[id number] JAY Last Admin: 01/14/20 07:22 Dose: 75 mls/hr Documented by: Assessment/Plan All Active Problems (Last Reviewed 10/04/19 @ 09:14 by Angélica Howard) Bladder cancer (Acute) Bronchitis (Acute) Acute sinusitis, unspecified (Acute) Acute dysfunction of both eustachian tubes (Acute) Chest pain (Acute) Abnormal stress test (Acute) Plan to proceed with cystoscopy bladder biopsy fulguration of biopsy site and bilateral retrograde pyelograms and selective cytologies.
--- NOTE | 2020-01-14 08:55 | DCINST_ITS ---
Discharge Diet: No Restrictions Discharge Activity: Return to Normal Activity, May Not Drive - for 2 days. Additional Activity Instructions:: Please be aware that pain medications may cause nausea. You should typically eat light foods as you take your pain medication. Pain medication may cause constipation, if this is a problem for you, please discuss with your doctor. Allergies/Adverse Reactions: Allergies No Known Allergies Allergy (Verified 01/11/20 08:06) Medications to take at Discharge Levothyroxine [Synthroid] 100 mcg PO MOTUWETHFRSA 02/24/16 Isosorbide Mononitrate [Isosorbide Mononitrate ER] 30 mg PO DAILY 11/03/16 Aspirin E.C. [Ecotrin] 81 mg PO DAILY@0800 tab 06/27/18 atorvastatin 40 mg tablet 40 mg PO QHS #90 tab 05/31/19 ramipril 10 mg capsule 10 mg PO BID #180 cap 08/30/19 Primary Care Physician: Robson Guzman MD [Primary Care Provider] - Test Results: Test results from this visit will be discussed in further detail at your follow- up appointment, if applicable. Please Follow Up With: Erasto Murphy MD When: please call to make an appointment.
[2020-01-14] MEDS: Cefazolin 2 GM in 0.9% Normal Saline 100 ML IV (09:01)
--- NOTE | 2020-01-14 09:43 | OP.PCM_ITS ---
Problem List (1) Bladder cancer Status: Acute Qualifiers: Bladder location: overlapping sites Qualified Code(s): C67.8 - Malignant neoplasm of overlapping sites of bladder Report of Operation Date of Procedure: 01/14/20 Pre-Operative Diagnosis: history of bladder cancer, abnormal cytologies, abnormal retrograde pyelogram. Post-Operative Diagnosis: Same Surgery/Procedure Performed:: 1 Cystoscopy, left retrograde pyelogram, urine for cytology from the left kidney,. 2 left ureteroscopy. 3 balloon dilation of the distal left ureter. 4 left stent placement. 5 Cystoscopy bladder biopsy and fulguration of biopsy site. 6 Right retrograde pyelogram and urine for cytology,. 7 Interpretation of fluoroscopic images. Description of Surgical Findings:: 79-year-old male with a history of bladder cancer has a history of recurrent bladder cancer comes in today for a cystoscopy bilateral retrograde pyelograms and bladder biopsy on cystoscopy was found only have some reddish areas in the trigone area of the bladder has a history of bladder cancer for the past. So today again taken the surgery to do an inspection of the bladder and both the kidneys because he is cytology was abnormal with positive cancer cells. Patient was taken back to the operating room after smooth induction of anesthesia he was placed supine on the table. Went into the bladder with a 21 [place] rigid cystourethroscope entire length of the urethra was normal the prostate was normal, once I got into the bladder I identified the right ureteral orifice and the left ureteral orifice. The right ureteral orifice had been prior resected back and it was scarred but open. The left ureter orifice was behind amount of tissue in the trigone area is difficult to see initially but then I was able to find. I cannulated the left ureteral orifice with a Pollick catheter and injected contrast for retrograde pyelogram, please see interpretation fluoroscopic images from below. After the contrast injection was done I could see a filling defect in the left kidney. So then I dilated the left ureteral orifice with a balloon dilator after dilating the distal left ureter I then went up over the wire with a flexible ureteroscope was able to get into the ureter and went all the way up to the kidney inspected the upper pole midpole lower pole the kidney there was no stones and no tumors seen in the kidney I think the filling defect was some air bubbles trapped against the wall of the left kidney. After this I worked my way down the ureter put a wire up on the left side and then we place a stent to the left side left the string of the stent for extraction with a cystoscopy next week. Once the stent was in place then I could see areas around the trigone area around the left ureteral orifice that was inflamed no real papillary tumors a biopsy was done and then I did not cauterize the area around the left ureteral orifice to cauterize what appeared to be erythematous tissue which was suspicious for CIS. I then cannulated the right ureteral orifice and the trigone area again this is been resected back. But it catheter went up quite easily I then performed a retrograde pyelogram to see contrast going up the kidney there was an air bubble but no filling defects in the inside the right collecting system. I then pulled out and drain normal ly. Urine was also sent off in the right kidney for cytology. At the end of the case we drained the bladder there is no bleeding I see him next week to get the stent out. Interpretation fluoroscopic images retrograde pyelogram was performed the left side and it filled the kidney well with there was calyceal's were sharp in the upper pole midpole lower pole but there was appear to be a filling defect in the pelvis of the left kidney. On the right side retrograde pyelogram was done because of contrast going up to the right kidney no filling defect there was an air bubble floating in the right kidney but otherwise a normal retrograde pyelogram. On the right side left side was abnormal. Type of Anesthesia:: General Drains: stent left - Admit VTE Documentation VTE Present on Admission: No VTE Mechan Device Prophylaxis: SCD's
[2020-01-14 10:02] VITALS: BP 139/79; BP 146/81; PULSE 61; RESP 16; TEMP 36.4; O2SAT 93
[2020-01-14 10:15] VITALS: BP 139/79; BP 172/80; PULSE 56; RESP 16; O2SAT 96
[2020-01-14 10:19] VITALS: BP 139/79; BP 158/81; PULSE 61; RESP 16; TEMP 36.3; O2SAT 94
[2020-01-14 11:00] VITALS: BP 139/79; BP 163/80; PULSE 57; RESP 16; TEMP 36.2; O2SAT 100
[2020-01-14] MEDS: Lactated Ringers 1,000 ML 100 ML IV (11:11)
== END 2020-01-14 12:01 | disposition home or self-care (01) ==
LOC: SDC 06:18 → AC 06:19
PROVIDERS: Anesthesiology; PCP Family Medicine; Referring Provider Urology; Visit Provider Urology
PROC: 0TBB8ZX Excision of Bladder, Via Natural or Artificial Opening Endoscopic, Diagnostic (ICD-10-PCS; CPT 52250; principal; 2020-01-14 08:40)
DX: C67.8 Malignant neoplasm of overlapping sites of bladder (principal); R82.89 Other abnormal findings on cytological and histological examination of urine; Z11.59 Encounter for screening for other viral diseases; I25.10 Atherosclerotic heart disease of native coronary artery without angina pectoris; I10 Essential (primary) hypertension; E03.9 Hypothyroidism, unspecified; E78.00 Pure hypercholesterolemia, unspecified; Z95.5 Presence of coronary angioplasty implant and graft; Z95.1 Presence of aortocoronary bypass graft; Z79.82 Long term (current) use of aspirin; Z87.891 Personal history of nicotine dependence; Z86.73 Personal history of transient ischemic attack (TIA), and cerebral infarction without residual deficits
CPT/HCPCS: 52204; 52332; 76000; 87635; 88108; 88305; 88313; 88341; 88342; G2023; J7120; C1769; C2617; J2405; U0003

== ENCOUNTER → 2020-06-01 12:45 | Outpatient (CLI) | payer MEDICARE, SELFPAY ==
[2020-04-06 08:25] VITALS: BMI 23.3
[2020-06-01 16:31] LABS: Anion Gap 5 (5-15); BUN 15 mg/dL (7-18); Calcium,Total 8.6 mg/dL (8.5-10.1); Chloride 111 mmol/L (98-107); Creatinine, Serum 0.83 mg/dL (0.70-1.30); EST Glomerular Filtration Rate 95 mL/min (>60); Est Glom Filt Rate - Afr Amer 114 mL/min (>60); Glucose 89 mg/dL (74-106); Potassium 3.9 mmol/L (3.5-5.1); Sodium Level 142 mmol/L (136-145); Thyroid Stim Hormone (TSH) 1.99 uIU/mL (0.358-3.74)
== END ==
PROVIDERS: PCP Family Medicine; Referring Provider Family Medicine; Visit Provider Family Medicine
DX: E03.9 Hypothyroidism, unspecified (principal); I10 Essential (primary) hypertension
CPT/HCPCS: 36415; 80048; 84443

== ENCOUNTER → 2020-12-07 09:10 | Outpatient (CLI) | payer MEDICARE, SELFPAY ==
[2020-04-06 08:25] VITALS: BMI 23.3
[2020-12-07 10:59] LABS: ALB/GLOB Ratio 1.3 RATIO (0.9-2.4); AST(SGOT) 26 U/L (15-37); Alanine Aminotransfer ALT/SGPT 31 U/L (16-61); Albumin, Serum 4.1 g/dL (3.2-5.0); Alkaline Phosphatase 94 U/L (45-117); Anion Gap 6 (5-15); BUN 13 mg/dL (7-18); BUN/Creat Ratio 13.2 RATIO (10-20); Chloride 109 mmol/L (98-107); Creatinine, Serum 0.98 mg/dL (0.70-1.30); EST Glomerular Filtration Rate 78 mL/min (>60); Est Glom Filt Rate - Afr Amer 95 mL/min (>60); Globulin 3.1 g/dL (2.2-4.2); Glucose 91 mg/dL (74-106); Protein, Total 7.2 g/dL (6.4-8.2); Sodium Level 141 mmol/L (136-145)
== END ==
PROVIDERS: PCP Family Medicine; Referring Provider Family Medicine; Visit Provider Family Medicine
DX: I25.10 Atherosclerotic heart disease of native coronary artery without angina pectoris (principal); E03.9 Hypothyroidism, unspecified; N41.9 Inflammatory disease of prostate, unspecified; A00-B99 Certain infectious and parasitic diseases
CPT/HCPCS: 36415; 80053; 84443; 87086

== ENCOUNTER → 2021-04-12 | Outpatient (CLI) | payer MEDICARE, SELFPAY ==
[2021-04-12 14:22] LABS: Bacteria 0 SEEN /hpf (None Seen); Mucous, Urine 0 SEEN /hpf (<or=2+)
[2021-04-12 18:07] LABS: Color, Urine Yellow (Yellow); Glucose, Dipstick Normal (Normal); Ketone-Dipstick Negative (Negative); Leukocyte Esterase-Dipstick 100 /ul (Negative); Nitrite-Dipstick Negative (Negative); Occult Blood-Urine 250 /ul (Negative); Protein-Dipstick 15 mg/dl (Negative); Urine Bilirubin Dipstick Negative (Negative); Urine Clarity Clear (Clear); Urine Urobilinogen Normal (Normal)
[2021-04-12 18:40] LABS: Red Blood Cells-Urine 0-5 SEEN /hpf (0-5); White Blood Cells 10-25 SEEN /hpf (0-5)
[2021-04-12 18:41] LABS: Squamous Epithelial Cells - UA 0-5 SEEN /hpf (0-5)
== END | disposition home or self-care (01) ==
LOC: LABSPEC 14:21
PROVIDERS: PCP Family Medicine; Referring Provider Family Medicine; Visit Provider Family Medicine
DX: R39.9 Unspecified symptoms and signs involving the genitourinary system (principal)
CPT/HCPCS: 81001; 87086

== ENCOUNTER → 2021-04-16 | Outpatient (CLI) | payer MEDICARE, SELFPAY | END | disposition home or self-care (01) | LOC: LABSPEC 14:18 | PROVIDERS: PCP Family Medicine; Visit Provider Family Medicine | DX: J02.9 Acute pharyngitis, unspecified (principal) | CPT/HCPCS: 87635; U0005; U0003 ==

== ENCOUNTER → 2021-06-26 | Outpatient (CLI) | payer MEDICARE, SELFPAY ==
--- NOTE | 2021-06-26 13:50 | CYSPIN_PTH ---
PATIENT: COLLEEN HILL LOC: [facility] U#:[id number] AGE/SX: 81/M ROOM: RE06/26/[address]: Dr. Erasto Murphy MD : 1940 BED: DIS: 06/26/2021 SPEC #: [id number] RECD: 06/27/21 07:32 STATUS: VESTA REZain #: [id number] KALEE: 06/26/21 13:[address]: Erasto Murphy DEPT: CYTOLOGY RECD BY: Elizabeth Edwards ENTERED: 06/27/21 07:32 SP TYPE: CYSPIN FL OTHR DR: Dr. Tl Guzman MD Tissues: Urine Procedures: Pap Stain (control) Special Stain Group II Cytospin Fluid HEADER OPERATION: Not noted PRE-OP DIAGNOSIS: Cystitis with hematuria TISSUE SUBMITTED: Urine for cytology DIAGNOSIS CYTOLOGY Urine for cytology (cytospin): Rare degenerated atypical cells noted. Acute inflammation. See comment. SJ:irene 06/27/2021 COMMENT Please make reference to previous specimens ([id number]) bladder, biopsy with diagnosis of ?high-grade urothelial carcinoma? and ([id number]) urine for cytology with diagnosis of ?atypical urothelial cells noted, high suspicious for carcinoma.? Clinical correlation and appropriate follow up are necessary. CYTOLOGY STUDY Slides are reviewed. CYTOLOGY GROSS Received is 40 ml of hernán cloudy fluid labeled with the patient's name and and designated per the requisition as urine. Submitted for cytology preparation. / irene 06/26/21 TC:2 CPT: 76362
[2021-06-26 17:10] LABS: Cytology, Body Fluid / CSF SEE PATHOLOGY REPORT
== END | disposition home or self-care (01) ==
PROVIDERS: PCP Family Medicine; Visit Provider Urology
DX: N30.81 Other cystitis with hematuria (principal)
CPT/HCPCS: 88108; 88313

== ENCOUNTER → 2021-07-19 14:39 | Outpatient (CLI) | payer MEDICARE, SELFPAY ==
--- NOTE | 2021-07-19 14:41 | CT_ITS ---
EXAM: CT ABDOMEN AND PELVIS WITHOUT INTRAVENOUS CONTRAST : 1940 CLINICAL INDICATION: BLADDER CA TECHNIQUE: Helically acquired images were obtained of the abdomen and pelvis without intravenous contrast. This CT exam was performed using one or more of the following dose reduction techniques: automated exposure control, adjustment of the mA and/or kV according to patient size, and/or use of iterative reconstruction technique. This report was created using [employer] [place] report generation technology. COMPARISON: November 03, 2016 FINDINGS: LOWER THORAX: Unremarkable. Lung bases are clear. No cardiomegaly. No significant pericardial effusion. ABDOMEN: LIVER: Unremarkable. Homogeneous. GALLBLADDER AND BILE DUCTS: Unremarkable. No calcified gallstones. No gallbladder distention or wall edema. No intra- or extrahepatic biliary ductal dilation. PANCREAS: Unremarkable. No focal cystic mass. SPLEEN: Unremarkable. Normal size without focal cystic or solid mass. ADRENALS: Unremarkable. No nodules. KIDNEYS AND URETERS: Residual or recurrent distention of the left renal collecting system is noted. The left periureteral edema however is no longer present. No evidence of an obstructing stone. Considering the history of bladder carcinoma residual or recurrent neoplasm or stricture to be excluded at the level of the left ureterovesical junction. Vesicoureteral reflux may demonstrate similar appearance. Right kidney and ureter are normal. Normal renal size and position. STOMACH AND BOWEL: Unremarkable. No stomach or bowel distention. No focal inflammatory change. PELVIS: APPENDIX: Appendix is visualised and normal in appearance. BLADDER: There is nonspecific bladder wall thickening. This may be related to incomplete distention. REPRODUCTIVE: Unremarkable as visualized. No mass. ABDOMEN and PELVIS: INTRAPERITONEAL SPACE: Unremarkable. No ascites or other fluid collection. No free air. BONES/JOINTS: Unremarkable. No suspicious lytic or blastic abnormality. SOFT TISSUES: Unremarkable. No discrete abdominal or pelvic wall hernia. VASCULATURE: Unremarkable. Abdominal aorta is non-dilated. LYMPH NODES: Unremarkable. No enlarged lymph nodes. CT/Abdomen/Pelvis without Cont IMPRESSION: Residual or recurrent distention of the left renal collecting system which may be secondary to stricture, residual or recurrent neoplasm at the ureterovesical junction or vesicoureteral reflux. Individualized dose optimization techniques were used for this CT. at 1658 Reported and signed by: Aston Morales MD Electronically Signed: Aston Morales MD at 16:56 EST Tel , Service support ,
== END ==
PROVIDERS: PCP Family Medicine; Referring Provider Urology; Visit Provider Urology
DX: C67.2 Malignant neoplasm of lateral wall of bladder (principal)
CPT/HCPCS: 74176

== ENCOUNTER 2021-07-30 16:19 | Outpatient (CLI) | payer MEDICARE, SELFPAY ==
--- NOTE | 2021-07-30 | BLA_PTH ---
PATIENT: COLLEEN HILL LOC: [facility]#:[id number] AGE/SX: 81/M ROOM: RE07/30/[address]: Dr. Erasto Murphy MD : 1940 BED: DIS: 07/30/2021 SPEC #: [id number] RECD: 07/30/21 13:42 STATUS: VESTA LANGSTON #: [id number] KALEE: 07/30/21 00:[address]: Erasto Murphy DEPT: SURGICAL PATHOLOGY RECD BY: Melo James ENTERED: 07/31/21 09:14 SP TYPE: BLADDER BX OTHR DR: Dr. Tl Guzman MD Tissues: Urinary bladder, NOS Procedures: Surgery Specimen Level IV HEADER OPERATION: Bladder biopsy PRE-OP DIAGNOSIS: C67.2 TISSUE SUBMITTED: Bladder biopsy MICROSCOPIC DIAGNOSIS Bladder, biopsy: A minute fragment of urothelial mucosa with focal moderate to severe atypia. Chronic inflammation. See comment. SJ:irene 08/01/2021 COMMENT Most of the specimen shows denuded epithelium. Please make reference to previous specimens ([id number]) urinary bladder, biopsy with diagnosis of ?high urothelial carcinoma? and ([id number]) lateral wall of urinary bladder, biopsy with diagnosis of ?no definite evidence of malignancy.? Case has been reviewed in consultation with Dr. Cunningham who concurs with the above diagnosis. IDC:[email or web address] MICROSCOPIC DESCRIPTION Slides are reviewed. GROSS DESCRIPTION Received is one container labeled with the patient's name and not further designated. The specimen consists of one irregular fragment of light clark soft tissue that measures 0.1 x <0.1 x <0.1 cm. The specimen is totally submitted in one cassette. / AM:irene 07/31/21 TC:5 CPT: 89856
== END 2021-07-30 23:59 | disposition home or self-care (01) ==
PROVIDERS: PCP Family Medicine; Visit Provider Urology
DX: C67.2 Malignant neoplasm of lateral wall of bladder (principal)
CPT/HCPCS: 88305

== ENCOUNTER 2021-11-21 22:26 | Inpatient (IN) | payer MEDICARE, SELFPAY ==
[2021-11-21 22:28] VITALS: BP 155/66; PULSE 79; RESP 16; TEMP 37.4; O2SAT 99; BMI 24.3
--- NOTE | 2021-11-21 22:47 | CT_ITS ---
STUDY: CT ABDOMEN AND PELVIS WITH CONTRAST REASON FOR EXAM: Male, 81 years old. RLQ pain RADIATION DOSAGE (If Supplied By Facility): CTDIvol = ( 12.94 ) mGy, DLP = ( 879.44 ) mGycm TECHNIQUE: Transaxial images were obtained from the dome of the diaphragm to the symphysis pubis without oral contrast. IV 100mL Isovue-370 was administered. Sagittal and coronal images were reconstructed. Individualized dose optimization techniques were used for this CT. COMPARISON: 07/19/2021 LIMITATIONS: None. LOWER CHEST: Redemonstration of right middle lobe pulmonary nodules measuring up to 7 mm, similar compared to the prior. LIVER: Hypoattenuating hepatic lesions in the left hepatic lobe, too small to characterize.. GALLBLADDER/BILE DUCTS: Normal. PANCREAS: Normal. SPLEEN: Enlarged measuring 14 cm. Hypoattenuating lesion in the anterior inferior aspect of the spleen, too small to characterize.. ADRENAL GLANDS: Normal. KIDNEYS/URETERS/BLADDER: Redemonstration of asymmetric wall thickening along the left urinary bladder. No hydroureteronephrosis or radiopaque nephrolithiasis.. RETROPERITONEUM/AORTA: Mild to moderate atherosclerotic calcifications.. BOWEL/MESENTERY: Mild increased stool. No bowel dilatation or bowel wall thickening. APPENDIX: Dilated appendix measuring up to 14 mm with calcified 12 mm appendicolith. Extensive periappendiceal fat stranding and trace free fluid. No adjacent free air drainable fluid collection. PERITONEUM: Normal. REPRODUCTIVE ORGANS: Partially visualized hydrocele. BONES/SOFT TISSUES: No acute abnormality. OTHER: None. CT/Abdomen/Pelvis W IV Cont ONLY IMPRESSION: 1. Acute appendicitis with appendicolith and extensive periappendiceal inflammatory changes. 2. Redemonstration of asymmetric urinary bladder wall thickening, differential includes chronic infectious/inflammatory changes or malignancy. 3. Nonspecific splenomegaly. 4. Redemonstration of right middle lobe pulmonary nodules measuring up to 7 mm. *Fleischner Society Recommendations (Radiology 2005;237:395-400.) (Follow-up and management of nodules smaller than 8 mm detected incidentally at non-screening CT. Newly detected indeterminate nodule in persons 35 years of age or older.) Low risk patient: Minimal or absent history of smoking and of other known risk factors. <= 4mm: No followup needed >4-6mm: Follow-up CT at 12 months, if unchanged - no further followup >6-8mm: Initial Follow-up CT at 6-12 months, then at 18-24 months if no change >8mm: Follow-up CT at 3, 9, and 24 months; FDG PET scan; and or biopsy High risk patient: History of smoking or of other known risk factors. <= 4mm: Follow-up CT at 12 months, if unchanged - no further followup >4-6mm: Initial Follow-up CT at 6-12 months, then at 18-24 months if no change >6-8mm: Initial Follow-up CT at 3-6 months, then at 9-12 and 24 months if no change >8mm: Follow-up CT at 3, 9, and 24 months; FDG PET scan; and or biopsy Note: Non-solid (ground-glass) or partly solid nodules may require longer follow-up to Electronically Signed: Rayo Tobin MD at 0:23 EDT ,
--- NOTE | 2021-11-21 22:49 | EDS_ITS ---
HPI History of Present Illness Chief Complaint: Abd Pain Narrative Narrative: Patient is a 81-year-old male who states that he went out and tried to wash his house by hand on Friday. He states he got about two th[address] the way down before he had to stop due to fatigue. He states he was recently also started on Flomax and has been urinating more frequently because of this. He states he is not been replacing his fluids adequately he believes. He denies any trauma but also states he noticed some pain in his right lower abdomen that is worse with motion after his activity on Friday. He denies any hematuria or dysuria but with concern for dehydration as well as persistent pain in the right lower quadrant patient was concern for an underlying infectious process and comes in for evaluation. [facility] Medical History Atherosclerotic heart disease of [place] coronary artery without angina pectoris Bladder cancer Essential hypertension Hyperlipidemia Hypertension Hypothyroidism Pure hypercholesterolemia Home Medications levothyroxine 100 mcg PO MOTUWETHFRSA 02/24/16 [History Last Taken 01/14/20 06:15 100 MCG] isosorbide mononitrate 30 mg PO DAILY 11/03/16 [History Last Taken 01/14/20 06:15 30 MG] aspirin 81 mg PO DAILY@0800 tab 06/27/18 [Rx Last Taken Unknown] atorvastatin 40 mg tablet 40 mg PO QHS #90 tab 05/31/19 [Rx Last Taken Unknown] ramipril 10 mg capsule 10 mg PO BID #180 cap 07/16/21 [Rx Last Taken Unknown] tamsulosin 0.4 mg capsule 0.4 mg PO QHS 08/20/21 [History Last Taken Unknown] Allergy/AdvReac Type Severity Reaction Status Date / Time No Known Allergies Allergy Verified 11/21/21 22:33 Family History Father CAD (coronary artery disease) Myocardial infarction, Onset Age: 56 Grandmother Heart disease Uncle Heart disease Surgical History History of cystoscopy Postsurgical percutaneous transluminal coronary angioplasty (PTCA) status (~09/07/01) Presence of aortocoronary bypass graft (~10/23/00) Presence of stent in coronary artery (~06/26/18) Social History Smoking Status: Former smoker how long ago did patient quit smokin years ago alcohol intake: current alcohol intake frequency: a few times a month Alcohol type: beer details: occasional caffeine: Yes Type: carbonated beverages Number of servings: 2 ROS ROS ED Constitutional Constitutional ED: Denies chills or fever(s) ENT ENT ED: Denies sore throat Cardiovascular Cardiovascular: Denies chest pain Respiratory/Chest Respiratory/Chest: Denies cough or dyspnea Gastrointestinal Gastrointestinal: Reports abdominal pain; Denies diarrhea, nausea or vomiting Genitourinary Genitourinary ED: Denies dysuria or hematuria Musculoskeletal Musculoskeletal: Denies back pain or myalgias Integumentary Denies rash Neurologic Neurologic: Denies headache(s) Hematologic/Lymphatic Hematologic/Lymphatic: Denies easy bleeding or easy bruising EXAM Physical Exam Const Vital Signs: 11/21/21 22:28 11/21/21 23:57 Temperature 99.4 F H Temperature Source Oral Pulse Rate 79 77 Respiratory Rate 16 15 Blood Pressure 155/66 H 156/69 H Blood Pressure Mean 95 98 Pulse Ox 99 98 Oxygen Delivery Method Room Air Room Air Positive well nourished and well developed General Appearance ED: well developed HEENT Reports dry mucous membranes Mouth ED: Yes dry mucous membranes Mouth: dry mucous membranes Eyes PERRL and EOMs intact bilaterally General Eye ED: Negative for scleral icterus Neck supple Resp normal respiratory effort and clear to auscultation bilaterally Cardio regular rate and regular rhythm Rate: other Other Details: Radial pulses are +2-4 bilaterally are equal and GI normal to inspection, nondistended, normoactive bowel sounds, non-tender, non- distended and no masses GI Narrative: No voluntary guarding or rigidity. No pulsatile mass or fluid wave. No obvious hernia palpated. Auscultation: normoactive bowel sounds Palpation: soft Back/Spine no CVA tenderness Extremity normal to inspection Neuro oriented x3 and CN's II-XII intact bilaterally Sensorium / Orientation: alert Motor Exam: strength 5/5 throughout Psych mental status grossly normal Skin Skin Narrative: Skin turgor is increased General Skin Exam: Negative for jaundice MDM MDM MDM Narrative Medical decision making narrative: Patient presented to the ER with low-grade fever but otherwise stable vitals. He reported some generalized increasing pain in the right lower quadrant without vomiting or diarrhea. With his low-grade fever there is concern for developing infection so elected to perform basic laboratory studies. Blood work revealed no clinically significant finding. CTA of the abdomen pelvis however did show acute appendicitis but without perforation. Secondary to this finding the case was discussed with general surgery. They recommend IV antibiotics at this time and admission for most likely surgical treatment of his acute appendicitis. However because of his chronic medical conditions he will need to be medically cleared before this is possible. The plan of care was discussed with patient and family and they are agreeable to this and therefore he will be admitted to surgical service for further care Lab Data Attestation: I reviewed the patient's lab results. Labs: Laboratory Results - last 24 hr 11/21/21 11/21/21 11/21/21 23:00 23:00 23:15 WBC 10.4 RBC 4.45 L Hgb 13.9 Hct 40.1 MCV 90.1 MCH 31.2 MCHC 34.7 RDW Std Deviation 43.9 RDW Coeff of Daron 13.2 Plt Count 158 MPV 8.3 Immature Gran % (Auto) 0.600 Neut % (Auto) 80.8 H Lymph % (Auto) 8.0 L [place] % (Auto) 9.5 Eos % (Auto) 0.7 Baso % (Auto) 0.4 Absolute Neuts (auto) 8.4 H Absolute Lymphs (auto) 0.83 Nucleated RBC % 0 Sodium 137 Potassium 4.0 Chloride 106 Carbon Dioxide 23.0 Anion Gap 8 BUN 14 Creatinine 0.94 Estim Creat Clear Calc 62.68 Est GFR (MDRD) Af Amer 99 Est GFR (MDRD) Non-Af 82 BUN/Creatinine Ratio 14.9 Glucose 123 H Calcium 8.7 Total Bilirubin 1.90 H Direct Bilirubin 0.43 H AST 16 ALT 28 Alkaline Phosphatase 100 Total Protein 6.9 Albumin 3.7 Globulin 3.2 Lipase 100 Urine Color Yellow Urine Clarity Clear Urine pH 5.0 Ur Specific [place] 1.020 Urine Protein Negative Urine Glucose (UA) Normal Urine Ketones Negative Urine Occult Blood 10 H Urine Nitrite Negative Urine Bilirubin Negative Urine Urobilinogen Normal Ur Leukocyte Esterase 25 H Urine RBC 0 SEEN Urine WBC 0-5 SEEN Ur Squamous Epith Cells 0 SEEN Calcium Oxalate Crystal 1+ Urine Bacteria RARE Urine Mucus 0 SEEN Radiography Diagnostic Testing: Clinical Impression(s) from Imaging Studies Abdomen/Pelvis CT 11/21/21 22:47 IMPRESSION: 1. Acute appendicitis with appendicolith and extensive periappendiceal inflammatory changes. 2. Redemonstration of asymmetric urinary bladder wall thickening, differential includes chronic infectious/inflammatory changes or malignancy. 3. Nonspecific splenomegaly. 4. Redemonstration of right middle lobe pulmonary nodules measuring up to 7 mm. *Fleischner Society Recommendations (Radiology 2005;237:395-400.) (Follow-up and management of nodules smaller than 8 mm detected incidentally at non-screening CT. Newly detected indeterminate nodule in persons 35 years of age or older.) Low risk patient: Minimal or absent history of smoking and of other known risk factors. <= 4mm: No followup needed >4-6mm: Follow-up CT at 12 months, if unchanged - no further followup >6-8mm: Initial Follow-up CT at 6-12 months, then at 18-24 months if no change >8mm: Follow-up CT at 3, 9, and 24 months; FDG PET scan; and or biopsy High risk patient: History of smoking or of other known risk factors. <= 4mm: Follow-up CT at 12 months, if unchanged - no further followup >4-6mm: Initial Follow-up CT at 6-12 months, then at 18-24 months if no change >6-8mm: Initial Follow-up CT at 3-6 months, then at 9-12 and 24 months if no change >8mm: Follow-up CT at 3, 9, and 24 months; FDG PET scan; and or biopsy Note: Non-solid (ground-glass) or partly solid nodules may require longer follow-up to Electronically Signed: Rayo Tobin MD at 0:23 EDT , Discharge Plan Triage Chief Complaint: Abd Pain ED Provider: Austin Rivera Dx/Rx/DC Orders Clinical Impression: Acute appendicitis, Essential hypertension Primary Care Provider: Robson Guzman Disposition Disposition: Acute Care Hospital [facility] Discharge Date/Time: 11/22/21 01:30
[2021-11-21 23:13] LABS: Absolute Lymphocyte Count 0.83 X10^3/uL (0.83-4.51); Absolute Neutrophil Count 8.4 X10^3/uL (2.0-7.7); Basophil# 0.04 X10^3/uL; Basophil% 0.4 % (0-1); Eosinophil# 0.07 X10^3/uL; Eosinophils% 0.7 % (0-5); Hematocrit 40.1 % (40-54); Hemoglobin 13.9 g/dL (13.0-16.5); Lymphocyte # 0.83 X10^3/ul (0.83-4.51); Mean Corp Hgb Conc 34.7 g/dL (32-36); Mean Corpuscular Hgb 31.2 pg (27.0-32.0); Mean Corpuscular Volume 90.1 fL (80-94); Mean Platelet Vol. 8.3 fl (6.2-12.0); Monocyte# 0.98 X10^3/uL; Monocyte% 9.5 % (0-10); NRBC Flagged by Analyzer 0 % (0-5); Neutrophil # 8.39 X10^3/uL (2.7-7.7); Neutrophil % 80.8 % (47-70); Platelet Count 158 K/mm3 (150-450); RBC Distribution Width CV 13.2 % (11.6-14.6); RBC Distribution Width SD 43.9 fl (35.1-43.9); Red Blood Count 4.45 M/mm3 (4.6-6.2); White Blood Count 10.4 K/mm3 (4.4-11.0)
[2021-11-21 23:21] LABS: Mucous, Urine 0 SEEN /hpf (<or=2+); Red Blood Cells-Urine 0 SEEN /hpf (0-5); Squamous Epithelial Cells - UA 0 SEEN /hpf (0-5)
[2021-11-21 23:30] LABS: Color, Urine Yellow (Yellow); Glucose, Dipstick Normal (Normal); Ketone-Dipstick Negative (Negative); Leukocyte Esterase-Dipstick 25 /ul (Negative); Nitrite-Dipstick Negative (Negative); Occult Blood-Urine 10 /ul (Negative); Protein-Dipstick Negative (Negative); Urine Bilirubin Dipstick Negative (Negative); Urine Clarity Clear (Clear); Urine Urobilinogen Normal (Normal)
[2021-11-21 23:33] LABS: AST(SGOT) 16 U/L (15-37); Alanine Aminotransfer ALT/SGPT 28 U/L (16-61); Albumin, Serum 3.7 g/dL (3.2-5.0); Alkaline Phosphatase 100 U/L (45-117); Anion Gap 8 (5-15); BUN 14 mg/dL (7-18); BUN/Creat Ratio 14.9 RATIO (10-20); Bilirubin, Direct 0.43 mg/dL (0.00-0.30); Calcium,Total 8.7 mg/dL (8.5-10.1); Chloride 106 mmol/L (98-107); Creatinine, Serum 0.94 mg/dL (0.70-1.30); EST Glomerular Filtration Rate 82 mL/min (>60); Est Glom Filt Rate - Afr Amer 99 mL/min (>60); Estimated Creatinine Clearance 62.68 ml/min; Globulin 3.2 g/dL (2.2-4.2); Glucose 123 mg/dL (74-106); Lipase 100 U/L (73-393); Protein, Total 6.9 g/dL (6.4-8.2); Sodium Level 137 mmol/L (136-145)
[2021-11-21 23:52] LABS: Bacteria RARE /hpf (None Seen); Calcium Oxalate Crystals Ur 1+ /hpf (<or=2+); White Blood Cells 0-5 SEEN /hpf (0-5)
[2021-11-21] MEDS: 0.9% Normal Saline 1,000 ML 999 ML IV (23:56)
[2021-11-21 23:57] VITALS: BP 156/69; PULSE 77; RESP 15; O2SAT 98
[2021-11-22] VITALS (11 sets, daily range): BP systolic 125–159; BP diastolic 61–76; PULSE 67–85; RESP 14–18; TEMP 36.4–37.7; O2SAT 95–100; BMI 23.6
--- NOTE | 2021-11-22 00:45 | EKG12_ITS ---
Test Reason : PRE OP Blood Pressure : / mmHG Vent. Rate : 072 BPM Atrial Rate : 072 BPM P-R Int : 166 ms QRS Dur : 096 ms QT Int : 396 ms P-R-T Axes : 036 -28 041 degrees QTc Int : 433 ms Normal sinus rhythm Leftward axis Confirmed by KIRBY TRIVEDI, CHRIS ([id number]), commissioning editor HARJIT BETHEA ([id number]) on 11/23/2021 10:11:21 AM Referred By: CHANCE Confirmed By:CHRIS ORR MD
[2021-11-22] MEDS: 0.9% Normal Saline 1,000 ML 100 ML IV ×2 (01:58→12:28)
--- NOTE | 2021-11-22 07:31 | PCM.HP.STD ---
HPI - General General Date of Admission: 11/22/21 HPI Narrative COLLEEN HILL, is a 81 M who presents with abdominal pain has been going on for few days. Patient says the pain is in the right lower quadrant. It has been getting worse. He denies any fevers or chills. [facility] Medical History Atherosclerotic heart disease of [place] coronary artery without angina pectoris Bladder cancer Essential hypertension Hyperlipidemia Hypertension Hypothyroidism Pure hypercholesterolemia Home Medications levothyroxine 100 mcg PO MOTUWETHFRSA 02/24/16 [History Last Taken 01/14/20 06:15 100 MCG] isosorbide mononitrate 30 mg PO DAILY 11/03/16 [History Last Taken 01/14/20 06:15 30 MG] aspirin 81 mg PO DAILY@0800 tab 06/27/18 [Rx Last Taken Unknown] atorvastatin 40 mg tablet 40 mg PO QHS #90 tab 05/31/19 [Rx Last Taken Unknown] ramipril 10 mg capsule 10 mg PO BID #180 cap 07/16/21 [Rx Last Taken Unknown] tamsulosin 0.4 mg capsule 0.4 mg PO QHS 08/20/21 [History Last Taken Unknown] Allergy/AdvReac Type Severity Reaction Status Date / Time No Known Allergies Allergy Verified 11/21/21 22:33 Family History Father CAD (coronary artery disease) Myocardial infarction, Onset Age: 56 Grandmother Heart disease Uncle Heart disease Surgical History History of cystoscopy Postsurgical percutaneous transluminal coronary angioplasty (PTCA) status (~09/07/01) Presence of aortocoronary bypass graft (~10/23/00) Presence of stent in coronary artery (~06/26/18) Social History Smoking Status: Former smoker how long ago did patient quit smokin years ago alcohol intake: current alcohol intake frequency: a few times a month Alcohol type: beer details: occasional caffeine: Yes Type: carbonated beverages Number of servings: 2 ROS Constitutional Constitutional: Reports anorexia; Denies chills or fatigue ENT HEENT: Denies dysphagia Cardiovascular Cardiovascular: Denies chest pain Respiratory/Chest Respiratory/Chest: Denies cough Gastrointestinal Gastrointestinal: Reports abdominal pain; Denies diarrhea, hematemesis, nausea or vomiting Genitourinary Genitourinary: Denies change in urinary stream Musculoskeletal Musculoskeletal: Denies abnormal gait Integumentary Integumentary: Denies new lesions Neurologic Neurologic: Denies abnormal gait Psychiatric Psychiatric: Denies anxiety Endocrine Endocrinology: Denies flushing Vital Signs Vital Signs Vital Signs: 11/21/21 22:28 11/21/21 23:57 11/22/21 01:00 Temperature 99.4 F H Temperature Source Oral Pulse Rate 79 77 70 Respiratory Rate 16 15 15 Respiratory Effort Respiratory Depth Respiratory Pattern Blood Pressure 155/66 H 156/69 H 156/69 H Blood Pressure Mean 95 98 98 Blood Pressure Source Blood Pressure Position Blood Pressure Location Pulse Ox 99 98 97 Oxygen Delivery Method Room Air Room Air Room Air 11/22/21 01:29 11/22/21 01:46 11/22/21 02:26 Temperature 97.9 F 98.2 F Temperature Source Temporal Oral Pulse Rate 85 83 Respiratory Rate 18 18 Respiratory Effort Normal Non-Labored Respiratory Depth Normal Respiratory Pattern Normal Blood Pressure 125/76 H 140/71 H Blood Pressure Mean 92 94 Blood Pressure Source Monitor Blood Pressure Position Blood Pressure Location Pulse Ox 95 100 Oxygen Delivery Method Room Air Room Air Room Air 11/22/21 06:30 Temperature 97.6 F L Temperature Source Oral Pulse Rate 72 Respiratory Rate 18 Respiratory Effort Respiratory Depth Respiratory Pattern Blood Pressure 133/68 H Blood Pressure Mean 89 Blood Pressure Source Monitor Blood Pressure Position Semi-Fowlers Blood Pressure Location Left Arm Pulse Ox 99 Oxygen Delivery Method Room Air Weight Weight: 164 lb 10.965 oz Body Mass Index (BMI) 23.6 Physical Exam Const alert and oriented x3 Resp normal respiratory effort and normal air movement Cardio regular rate and regular rhythm GI soft to palpation and non-distended Palpation: tender RLQ Results Lab / Micro Data Result Diagrams: 11/21/21 23:00 11/21/21 23:00 Labs: Laboratory Results - last 24 hr 11/21/21 23:00: Sodium 137, Potassium 4.0, Chloride 106, Carbon Dioxide 23.0, Anion Gap 8, BUN 14, Creatinine 0.94, Estim Creat Clear Calc 62.68, Est GFR (MDRD) Af Amer 99, Est GFR (MDRD) Non-Af 82, BUN/Creatinine Ratio 14.9, Glucose 123 H, Calcium 8.7, Total Bilirubin 1.90 H, Direct Bilirubin 0.43 H, AST 16, ALT 28, Alkaline Phosphatase 100, Total Protein 6.9, Albumin 3.7, Globulin 3.2, Lipase 100 11/21/21 23:00: WBC 10.4, RBC 4.45 L, Hgb 13.9, Hct 40.1, MCV 90.1, MCH 31.2, MCHC 34.7, RDW Std Deviation 43.9, RDW Coeff of Daron 13.2, Plt Count 158, MPV 8.3, Immature Gran % (Auto) 0.600, Neut % (Auto) 80.8 H, Lymph % (Auto) 8.0 L, [place] % (Auto) 9.5, Eos % (Auto) 0.7, Baso % (Auto) 0.4, Absolute Neuts (auto) 8.4 H, Absolute Lymphs (auto) 0.83, Nucleated RBC % 0 11/21/21 23:15: Urine Color Yellow, Urine Clarity Clear, Urine pH 5.0, Ur Specific [place] 1.020, Urine Protein Negative, Urine Glucose (UA) Normal, Urine Ketones Negative, Urine Occult Blood 10 H, Urine Nitrite Negative, Urine Bilirubin Negative, Urine Urobilinogen Normal, Ur Leukocyte Esterase 25 H, Urine RBC 0 SEEN, Urine WBC 0-5 SEEN, Ur Squamous Epith Cells 0 SEEN, Calcium Oxalate Crystal 1+, Urine Bacteria RARE, Urine Mucus 0 SEEN Micro: Microbiology 11/22/21 01:00 Nasal Secretion SARS-CoV-2 Antigen (Rapid) - Final Radiology Impression Abdomen/Pelvis CT 11/21/21 22:47 IMPRESSION: 1. Acute appendicitis with appendicolith and extensive periappendiceal inflammatory changes. 2. Redemonstration of asymmetric urinary bladder wall thickening, differential includes chronic infectious/inflammatory changes or malignancy. 3. Nonspecific splenomegaly. 4. Redemonstration of right middle lobe pulmonary nodules measuring up to 7 mm. *Fleischner Society Recommendations (Radiology 2005;237:395-400.) (Follow-up and management of nodules smaller than 8 mm detected incidentally at non-screening CT. Newly detected indeterminate nodule in persons 35 years of age or older.) Low risk patient: Minimal or absent history of smoking and of other known risk factors. <= 4mm: No followup needed >4-6mm: Follow-up CT at 12 months, if unchanged - no further followup >6-8mm: Initial Follow-up CT at 6-12 months, then at 18-24 months if no change >8mm: Follow-up CT at 3, 9, and 24 months; FDG PET scan; and or biopsy High risk patient: History of smoking or of other known risk factors. <= 4mm: Follow-up CT at 12 months, if unchanged - no further followup >4-6mm: Initial Follow-up CT at 6-12 months, then at 18-24 months if no change >6-8mm: Initial Follow-up CT at 3-6 months, then at 9-12 and 24 months if no change >8mm: Follow-up CT at 3, 9, and 24 months; FDG PET scan; and or biopsy Note: Non-solid (ground-glass) or partly solid nodules may require longer follow-up to Electronically Signed: Rayo Tobin MD at 0:23 EDT , Assessment & Plan Assessment/Plan (1) Acute appendicitis: QUALIFIERS: Acute appendicitis type: unspecified acute appendicitis type Qualified Code(s): K35.80 - Unspecified acute appendicitis PLAN: Patient has abdominal pain and his CT scan shows acute appendicitis with appendicolith. There is also some fluid around the appendix indicating possible perforation. I discussed laparoscopic appendectomy with the patient. I discussed the possibility of conversion open and possible ileocecectomy if necessary. I discussed the risks of injury to surrounding organs such as the bowel, bladder, ureters. I also discussed the possibility of bleeding and infection. Patient understands all the risks and is willing to proceed. Krystian Lantigua MD Pager: [facility] [address] [place] [phone] Office:
[2021-11-22 07:47] LABS: Anion Gap 7 (5-15); BUN 14 mg/dL (7-18); BUN/Creat Ratio 13.9 RATIO (10-20); Calcium,Total 8.6 mg/dL (8.5-10.1); Chloride 110 mmol/L (98-107); Creatinine, Serum 1.01 mg/dL (0.70-1.30); EST Glomerular Filtration Rate 75 mL/min (>60); Est Glom Filt Rate - Afr Amer 91 mL/min (>60); Estimated Creatinine Clearance 60.23 ml/min; Glucose 128 mg/dL (74-106); Potassium 4.2 mmol/L (3.5-5.1); Sodium Level 138 mmol/L (136-145)
--- NOTE | 2021-11-22 09:00 | APP_PTH ---
PATIENT: COLLEEN HILL LOC: [facility] U#:[id number] AGE/SX: 81/M ROOM: [facility] RE11/22/[address]: Dr. Krystian Lantigua MD : 1940 BED: 1 DIS: 11/23/2021 SPEC #: [id number] RECD: 11/22/21 16:34 STATUS: VESTA LANGSTON #: [id number] KALEE: 11/22/21 09:[address]: Krystian Lantigua DEPT: SURGICAL PATHOLOGY RECD BY: Elizabeth Edwards ENTERED: 11/23/21 08:36 SP TYPE: APPENDIX OTHR DR: Dr. Tl Guzman MD Tissues: Appendix, NOS Procedures: Surgery Specimen Level III HEADER OPERATION: Laparoscopic, Appendectomy PRE-OP DIAGNOSIS: Acute Appendicitis TISSUE SUBMITTED: Appendix MICROSCOPIC DIAGNOSIS Appendix, appendectomy: Acute appendicitis. Acute serositis. AM/am 11/26/21 MICROSCOPIC DESCRIPTION Slides are reviewed. GROSS DESCRIPTION Received in fixative is one container labeled with the patient's name and designated appendix. The specimen consists of disrupted appendix measuring 5.0 cm in length and 1.5 cm in diameter. Area of disruption may represent site of perforation. The serosa is congested. The lumen is filled with fecal material. Also present in container a fragment of fecal material. No fecalith is identified. Assurance Auditor sections are submitted in two cassettes. /SJ 11/26/21 TC:2 CPT: 35967
--- NOTE | 2021-11-22 11:09 | OP.PCM_ITS ---
Problems Associated Problem List Diagnoses (1) Acute appendicitis: Report of Operation Date of Procedure: 11/22/21 Pre-Operative Diagnosis: Acute appendicitis Post-Operative Diagnosis: Acute appendicitis Surgery/Procedure Performed:: Laparoscopic appendectomy Specimen's removed: Appendix Description of Procedure: The patient was brought into the operating room and general anesthesia was induced. The left arm was tucked and the abdomen was prepped and draped in usual sterile fashion. A small midline incision was made superior to the umbilicus and deepened to the level of the fascia. The fascia was elevated and incised. The peritoneum was also elevated and incised. A finger sweep was performed and a balloon trocar was placed into the abdomen and inflated. The abdomen was insufflated to 15 mmHg and the camera was inserted and the abdomen was inspected for any injuries upon entering the abdomen. There were none. The patient was placed in Trendelenburg position and a 5 mm ports placed in the left lower quadrant and suprapubic areas under direct visualization. Next using atraumatic bowel graspers the appendix was identified. The appendix was necrotic at the mid appendix. With light grasping it perforated. The stool was suctioned and the appendix was followed distal. The appendix pulled apart distally due to retraction. A stapler was used to come across the base of the appendix. The tip of the appendix was grasped and retrieved as well. The appendix was then placed in Endo Catch bag and removed through the umbilical incision. The staple line was inspected and found to be hemostatic and intact. The 2 5 mm ports are removed under direct visualization. The balloon trocar was deflated and removed and all the air was removed from the abdomen. The umbilical incision fascia was closed with an 0 Vicryl [id number] suture. The incisions were then irrigated with saline and dried. Local anesthetic was injected into the incision sites. The skin incisions were then closed with interrupted 4-0 Monocryl suture and Steri- Strips. Bandages were applied and the patient was awoken and taken to PACU in stable condition. Patient tolerated the procedure well. Admit VTE Documentation VTE Mechan Device Prophylaxis: SCD's
[2021-11-22 11:50] LABS: Absolute Lymphocyte Count 1.18 X10^3/uL (0.83-4.51); Absolute Neutrophil Count 7.3 X10^3/uL (2.0-7.7); Basophil# 0.04 X10^3/uL; Basophil% 0.4 % (0-1); Eosinophil# 0.04 X10^3/uL; Eosinophils% 0.4 % (0-5); Hemoglobin 13.7 g/dL (13.0-16.5); Lymphocyte # 1.18 X10^3/ul (0.83-4.51); Lymphocyte % 12.1 % (19-41); Mean Corp Hgb Conc 36.1 g/dL (32-36); Mean Corpuscular Hgb 32.2 pg (27.0-32.0); Mean Corpuscular Volume 89.2 fL (80-94); Mean Platelet Vol. 8.4 fl (6.2-12.0); Monocyte# 1.03 X10^3/uL; Monocyte% 10.6 % (0-10); NRBC Flagged by Analyzer 0 % (0-5); Neutrophil # 7.34 X10^3/uL (2.7-7.7); Neutrophil % 75.6 % (47-70); Platelet Count 173 K/mm3 (150-450); RBC Distribution Width CV 13.3 % (11.6-14.6); RBC Distribution Width SD 43.5 fl (35.1-43.9); Red Blood Count 4.26 M/mm3 (4.6-6.2); White Blood Count 9.7 K/mm3 (4.4-11.0)
[2021-11-22] MEDS: Isosorbide Mononitrate 30 MG Tablet PO (12:28)
--- NOTE | 2021-11-22 12:40 | CASEMGMT ---
RN CM NEONATAL SPECIALIST CM to room to meet with patient for initial transition planning/care coordination assessment. RN PERCY introduced self and role at [facility].? Pt voices understanding and consents to assessment at this time.? Pt resting in bed in no distress at this time.? @ bedside. Pt is A/O at this time and answers all questions appropriately.?? Care providers, pharmacy, and demographics verified/updated at this time. PCP: Dr Guzman Specialists: Dr Robert--cardiology, Dr Murphy-urology Preferred Pharmacy: [facility] Retail Insurance: [employer] Prescription Benefit:? Yes Living Will/HPOA:? Has LW and HPOA, who is his , Cara LNOK: , Cara Living Arrangements: Lives w/ on one-story home w/basement. 2 steps to enter. Does okay w/stairs. Independent w/ADL's prior to admission. and pt share home mgmt tasks. manages medications and appts. Transportation: Pt states drives self and states no transportation concerns at this time.? does not drive. DME: ? Denies using any DME and denies needs.? HHC/SNF: No hx of either. No need identified. Pt wishes to return home and states has no concerns with going home at time of discharge.? CM to follow for any discharge planning/needs.? Pt and voice no concerns/needs at this time.? Advised them to ask for CM if any questions/concerns/needs arise.? Voices understanding. PLAN: ?Home w/spousal support and discharge plans in place. Sandra ALVARADO RN, CM
[2021-11-22] MEDS: Ramipril 10 MG Capsule PO ×2 (14:29→20:30)
[2021-11-22] MEDS: Atorvastatin Calcium 40 MG Tablet PO (20:30)
[2021-11-22] MEDS: Acetaminophen 325 MG Tablet 650 MG PO (20:30)
[2021-11-22] MEDS: Tamsulosin HCl 0.4 MG Capsule PO (22:42)
--- NOTE | 2021-11-22 23:18 | NURSING ---
Pt frustrated at this time about not able to get up independently. Pt post op day 1 appendectomy, has been c/o lightheadedness. This RN observed pt to stumble while in the bathroom, re-educated pt to use call light to get assistance before getting out of bed. This RN explained/educated safety concern, pt insisted to get up on his own at this time. Bed alarm remains on.
[2021-11-23 00:23] VITALS: BP 134/80; PULSE 74; RESP 18; TEMP 36.9; O2SAT 100
[2021-11-23 04:20] VITALS: BP 152/71; PULSE 64; RESP 18; TEMP 36.9; O2SAT 98
[2021-11-23 04:51] LABS: Absolute Lymphocyte Count 0.56 X10^3/uL (0.83-4.51); Absolute Neutrophil Count 8.2 X10^3/uL (2.0-7.7); Basophil# 0.01 X10^3/uL; Basophil% 0.1 % (0-1); Hematocrit 35.3 % (40-54); Hemoglobin 12.4 g/dL (13.0-16.5); Lymphocyte # 0.56 X10^3/ul (0.83-4.51); Lymphocyte % 5.7 % (19-41); Mean Corp Hgb Conc 35.1 g/dL (32-36); Mean Corpuscular Hgb 31.2 pg (27.0-32.0); Mean Corpuscular Volume 88.7 fL (80-94); Mean Platelet Vol. 8.5 fl (6.2-12.0); Monocyte# 0.92 X10^3/uL; Monocyte% 9.4 % (0-10); NRBC Flagged by Analyzer 0 % (0-5); Neutrophil % 84.2 % (47-70); POSITIVE DIFFERENTIAL YES; Platelet Count 183 K/mm3 (150-450); RBC Distribution Width CV 13.1 % (11.6-14.6); RBC Distribution Width SD 43.3 fl (35.1-43.9); Red Blood Count 3.98 M/mm3 (4.6-6.2); White Blood Count 9.8 K/mm3 (4.4-11.0)
[2021-11-23 04:56] LABS: Differential Indicated SCAN CRITERIA MET
[2021-11-23] MEDS: Levothyroxine 100 MCG Tablet PO (04:59)
[2021-11-23] MEDS: 0.9% Normal Saline 1,000 ML 100 ML IV (04:59)
[2021-11-23 05:22] LABS: Anion Gap 5 (5-15); BUN 15 mg/dL (7-18); BUN/Creat Ratio 15.9 RATIO (10-20); Calcium,Total 8.3 mg/dL (8.5-10.1); Chloride 111 mmol/L (98-107); Creatinine, Serum 0.95 mg/dL (0.70-1.30); EST Glomerular Filtration Rate 81 mL/min (>60); Est Glom Filt Rate - Afr Amer 98 mL/min (>60); Estimated Creatinine Clearance 64.04 ml/min; Glucose 141 mg/dL (74-106); Sodium Level 139 mmol/L (136-145)
[2021-11-23 06:30] LABS: Differential Comment SCANNED
[2021-11-23 08:15] VITALS: BMI 23.6
[2021-11-23 08:18] VITALS: BP 149/75; PULSE 71; RESP 16; TEMP 36.4; O2SAT 98
[2021-11-23] MEDS: Isosorbide Mononitrate 30 MG Tablet PO (08:23)
[2021-11-23] MEDS: Aspirin E.C. 81 MG Tablet PO (08:24)
[2021-11-23] MEDS: Ramipril 10 MG Capsule PO (08:24)
[2021-11-23 12:14] VITALS: BMI 23.6
--- NOTE | 2021-11-23 13:30 | DS.PCM_ITS ---
Providers Date of Admission: 11/22/21 Primary Care Physician: Dr. Robson Guzman MD Reason For Visit: ACUTE APPENDICITIS Diagnosis Discharge Diagnosis (1) Acute appendicitis: Status: Acute Code(s): K35.80 - Unspecified acute appendicitis Qualifiers: Acute appendicitis type: unspecified acute appendicitis type Qualified Code(s): K35.80 - Unspecified acute appendicitis Medications at Discharge Home Medications levothyroxine 100 mcg PO MOTUWETHFRSA 02/24/16 isosorbide mononitrate 30 mg PO DAILY 11/03/16 aspirin 81 mg PO DAILY@0800 tab 06/27/18 atorvastatin 40 mg tablet 40 mg PO QHS #90 tab 05/31/19 ramipril 10 mg capsule 10 mg PO BID #180 cap 07/16/21 tamsulosin 0.4 mg capsule 0.4 mg PO QHS 08/20/21 acetaminophen [Tylenol] 650 mg PO Q4H PRN PRN #0 tab 11/23/21 Hospital Course Operations appendectomy Summary of Care Provided Hospital Course: The patient presented to the emergency room with acute appendicitis. He was taken for laparoscopic appendectomy. Postoperatively the patient was started on a diet and slowly advance. The following day he was tolerating diet and doing well and discharged home. Weight / BMI Weight Weight: 164 lb 10.965 oz Body Mass Index (BMI) 23.6 ABG / Lab / Microbiology Data Result Diagrams: 11/23/21 04:11 11/23/21 04:11 Laboratory: Laboratory Results - last 24 hr 11/23/21 04:11: WBC 9.8, RBC 3.98 L, Hgb 12.4 L, Hct 35.3 L, MCV 88.7, MCH 31.2, MCHC 35.1, RDW Std Deviation 43.3, RDW Coeff of Daron 13.1, Plt Count 183, MPV 8.5, Immature Gran % (Auto) 0.600, Neut % (Auto) 84.2 H, Lymph % (Auto) 5.7 L, Sherman % (Auto) 9.4, Eos % (Auto) 0.0, Baso % (Auto) 0.1, Absolute Neuts (auto) 8.2 H, Absolute Lymphs (auto) 0.56 L, Nucleated RBC % 0, Differential Comment SCANNED 11/23/21 04:11: Sodium 139, Potassium 4.0, Chloride 111 H, Carbon Dioxide 23.0, Anion Gap 5, BUN 15, Creatinine 0.95, Estim Creat Clear Calc 64.04, Est GFR (MDRD) Af Amer 98, Est GFR (MDRD) Non-Af 81, BUN/Creatinine Ratio 15.9, Glucose 141 H, Calcium 8.3 L Microbiology: Microbiology 11/22/21 01:00 Nasal Secretion SARS-CoV-2 Antigen (Rapid) - Final D/C Instructions Discharge Diet: Light diet - advance as tolerated Discharge Activity: May Not Drive (for 2-3 days or while taking narcotic pain medications.) May shower in (days): 1 Lifting Restrictions: 20 lbs for 2 weeks Call your doctor if your incision/area has: Continuous Slow Oozing, Sudden Increased Bleeding, Increased Pain/ Swelling, Increased Redness and Foul Smelling Discharge Call your doctor if you observe: Fever of 101 or Higher Suture Line Care: Avoid Pulling/Pushing and Avoid Pinching/Bending Remove Dressing in: 2 days Cleanse incision/area with: Soap & Water Additional Dressing/Incision Instructions: Keep dressing clean and dry. Change or remove dressing in 2 days. Leave steri strips for 1 week. May protect with a gauze bandaid. Please Follow Up With: Krystian Lantigua MD When: Please call to schedule 2 week follow up appointment. [phone] Meaningful Use Info Meaningful Use Diagnoses (Choose all that apply): None applicable Discharge Plan Admission Admit Date/Time: 11/22/21 00:56 Attending Provider: Krystian Lantigua Primary Care Provider: Robson Guzman Discharge Orders/Prescriptions Prescriptions: New acetaminophen [Tylenol] 325 mg Tablet 650 mg PO Q4H PRN PRN (Reason: Pain 1-10 Or Fever) Qty: 0 RF: 0 Continued tamsulosin 0.4 mg capsule 0.4 mg PO QHS RF: 0 levothyroxine 50 MCG tablet 100 mcg PO MOTUWETHFRSA RF: 0 isosorbide mononitrate 30 MG tablet extended release 24 hr 30 mg PO DAILY RF: 0 aspirin 81 MG tablet 81 mg PO DAILY@0800 RF: 0 atorvastatin 40 mg tablet 40 mg PO QHS Qty: 90 RF: 3 ramipril 10 mg capsule 10 mg PO BID Qty: 180 RF: 3 Referrals / Follow Up: Robson Guzman MD [Primary Care Provider] - Disposition Disposition (needs filled in before D/C Order can be placed): Home, Self Care
== END 2021-11-23 13:35 | disposition home or self-care (01) | DRG 343 ==
LOC: ED 11-22 01:19 → PCU 11-22 01:20
PROVIDERS: Anesthesiology; Admitting Provider Surgery; Emergency Provider Emergency Medicine; PCP Family Medicine; Visit Provider Surgery
PROC: 0DTJ4ZZ Resection of Appendix, Percutaneous Endoscopic Approach (ICD-10-PCS; CPT 44970; principal; 2021-11-22 08:40)
DX: K35.80 Unspecified acute appendicitis (principal); E03.9 Hypothyroidism, unspecified; E78.5 Hyperlipidemia, unspecified; I10 Essential (primary) hypertension; I25.10 Atherosclerotic heart disease of native coronary artery without angina pectoris; Z87.891 Personal history of nicotine dependence; Z79.82 Long term (current) use of aspirin; Z79.899 Other long term (current) drug therapy; Z79.890 Hormone replacement therapy
CPT/HCPCS: 36415; 74177; 80048; 80076; 81001; 83690; 85025; 87811; 88304; 93005; 99251; 99285; J7030; Q9967; A4216; C1760; G0463; J2405

== ENCOUNTER → 2021-12-10 | Outpatient (CLI) | payer MEDICARE, SELFPAY ==
[2021-12-10 11:09] LABS: ALB/GLOB Ratio 1.3 RATIO (0.9-2.4); AST(SGOT) 25 U/L (15-37); Alanine Aminotransfer ALT/SGPT 31 U/L (16-61); Alkaline Phosphatase 98 U/L (45-117); Anion Gap 9 (5-15); BUN 19 mg/dL (7-18); BUN/Creat Ratio 19.8 RATIO (10-20); Calcium,Total 8.8 mg/dL (8.5-10.1); Chloride 109 mmol/L (98-107); Cholesterol 94 mg/dL (200); Creatinine, Serum 0.96 mg/dL (0.70-1.30); EST Glomerular Filtration Rate 80 mL/min (>60); Est Glom Filt Rate - Afr Amer 97 mL/min (>60); Globulin 3.1 g/dL (2.2-4.2); Glucose 109 mg/dL (74-106); High Density Lipoprotein 45 mg/dL; Potassium 4.4 mmol/L (3.5-5.1); Protein, Total 7.1 g/dL (6.4-8.2); Sodium Level 140 mmol/L (136-145); T4 Free Direct 1.41 ng/dL (0.76-1.46); Thyroid Stim Hormone (TSH) 2.72 uIU/mL (0.358-3.74); Triglycerides 53 mg/dL; Very Low Density Lipoprotein 11 mg/dL (5-40)
== END | disposition home or self-care (01) ==
LOC: MFPLAB 08:57
PROVIDERS: PCP Family Medicine; Visit Provider Family Medicine
DX: E78.5 Hyperlipidemia, unspecified (principal); E03.9 Hypothyroidism, unspecified
CPT/HCPCS: 36415; 80053; 80061; 84439; 84443

== ENCOUNTER → 2022-02-18 | Outpatient (CLI) | payer MEDICARE, SELFPAY ==
--- NOTE | 2022-02-18 | CYSPIN_PTH ---
PATIENT: COLLEEN HILL LOC: [facility] U#:[id number] AGE/SX: 81/M ROOM: RE02/18/[address]: Dr. Erasto Murphy MD : 1940 BED: DIS: 02/18/2022 SPEC #: [id number] RECD: 02/18/22 16:00 STATUS: VESTA LANGSTON #: [id number] KALEE: 02/18/22 00:[address]: Erasto Murphy DEPT: CYTOLOGY RECD BY: Raúl Pedro ENTERED: 02/19/22 06:40 SP TYPE: CYSPIN FL OTHR DR: Dr. Tl Guzman MD Tissues: Urine Procedures: Pap Stain (control) Special Stain Group II Cytospin Fluid HEADER OPERATION: Not noted PRE-OP DIAGNOSIS: History of bladder cancer TISSUE SUBMITTED: Urine for cytology DIAGNOSIS CYTOLOGY Urine for cytology (cytospin): A few clusters of highly atypical urothelial cells noted, suspicious for urothelial carcinoma. Acute inflammation. See comment. SJ:irene 02/19/2022 COMMENT Clinical correlation and appropriate follow up are necessary. Please make reference to previous specimen ([id number]) bladder, biopsy with diagnosis of ?high-grade urothelial carcinoma.? Case has been reviewed in consultation with Dr. Cunningham who concurs with the above diagnosis. IDC:AM CYTOLOGY STUDY Slides are reviewed. CYTOLOGY GROSS Received is 25 ml of yellow hazy fluid labeled with the patient's name and and designated per the requisition as urine. Submitted for cytology preparation. / irene 02/18/2022 TC:5 CPT: 37370
[2022-02-18 16:38] LABS: Cytology, Body Fluid / CSF SEE PATHOLOGY REPORT
== END | disposition home or self-care (01) ==
LOC: LABSPEC 16:25
PROVIDERS: PCP Family Medicine; Referring Provider Urology; Visit Provider Urology
DX: C67.2 Malignant neoplasm of lateral wall of bladder (principal)
CPT/HCPCS: 88108; 88313

== ENCOUNTER 2022-03-06 11:59 | Observation (INO) | payer MEDICARE, SELFPAY ==
[2022-03-06] VITALS (9 sets, daily range): BP systolic 142–177; BP diastolic 70–86; PULSE 56–84; RESP 14–18; TEMP 36.2–37; O2SAT 95–99; BMI 22.4; BMI 22.5
--- NOTE | 2022-03-06 | IMM_PTH ---
PATIENT: COLLEEN HILL LOC: [facility] U#:[id number] AGE/SX: 81/M [facility] [facility] RE03/06/[address]: Dr. Erasto Murphy MD : 1940 BED: 1 DIS: 03/07/2022 SPEC #: [id number] RECD: 03/07/22 12:25 STATUS: VESTA REZain #: [id number] KALEE: 03/06/22 00:[address]: Erasto Murphy DEPT: IMMUNOHISTOCHEMISTRY RECD BY: Rosario Zambrano ENTERED: 03/07/22 12:26 SP TYPE: IMMUNO OTHR DR: Dr. Tl Guzman MD Tissues: C - Prostate, NOS Procedures: CK20 (add) CK7 (add) CK8 (add) KI-67 (add) P53 (add) 34BE12 (add) Pankeratin (initial) P40 (add) PHYSICIAN & INSTITUTION [place] [id number] SPECIMEN INFORMATION: Tissue Source: C - Prostate Clinical Info: BPH, bladder cancer Specimen Number: [id number] C5 CPT code: 61155, 60574 x7 METHODOLOGY: Deparaffinized sections of prefer/formalin-fixed tissue or PAP/DQ stained slides are incubated with monoclonal/polyclonal antibodies/oligonucleotide probes. Localization is made via biotin free immunoperoxidase method. Appropriate controls are performed and reacted as expected. Results on target cell population are indicated in the following table: RESULTS: ANTIBODY / CLONE RESULT Block C5 AE1-3 (AE1/AE3/PCK26) positive, rare CK7 (OV-TL12/30) negative CK8 (98msbvA09) positive CK20 (KS20.8) negative 34BE12 (34BE12) positive P40 (BC28) positive P53 (DO-7) negative Ki-67 (30-9) positive, low These tests were developed and their performance characteristics determined by [facility]. They may not have been cleared or approved by the U.S. Food and Drug Administration. The FDA has determined that such clearance or approval is not necessary. The above immunohistochemical/dualISH markers are ordered and reviewed by the Pathologist. INTERPRETATION: C. Prostate, transurethral resection: Focal atypical glandular cells present. Comment: Urothelial origin is favored AM:sylvia 03/11/2022
--- NOTE | 2022-03-06 | PROS_PTH ---
PATIENT: COLLEEN HILL LOC: [facility] U#:[id number] AGE/SX: 81/M ROOM: [facility] RE03/06/[address]: Dr. Erasto Murphy MD : 1940 BED: 1 DIS: 03/07/2022 SPEC #: [id number] RECD: 03/06/22 12:16 STATUS: VESTA LANGSTON #: [id number] KALEE: 03/06/22 00:[address]: Erasto Murphy DEPT: SURGICAL PATHOLOGY RECD BY: Raúl Pedro ENTERED: 03/06/22 12:49 SP TYPE: TURP OTHR DR: Dr. Tl Guzman MD Tissues: A - Urinary bladder, NOS B - Urinary bladder, NOS Prostate, NOS Procedures: Surgery Specimen Level IV HEADER OPERATION: Cysto, TUR prostate, Olympus PRE-OP DIAGNOSIS: BPH with lower urinary tract symptoms, carcinoma in situ of bladder, malignant neoplasm of lateral wall of bladder TISSUE SUBMITTED: A ? Lesion of posterior wall of bladder, B ? Lesion of dome of bladder, C ? Prostate tissue MICROSCOPIC DIAGNOSIS A. Lesion of posterior wall of urinary bladder, biopsy: Granulation with chronic and minimal acute inflammation. B. Lesion, dome of bladder, biopsy: Mild hyperplastic change of urothelium. C. Prostate, transurethral resection: Benign nodular hyperplasia, glandular and stromal types. Mild chronic inflammation. Focal atypical glandular proliferation. See comment. AM:irene 03/07/2022 COMMENT Immunohistochemistry ([id number]) supports the above diagnosis and favors the atypia to be arising in a single cluster of urothelial cells. Reference is made to the patient's previous urinary bladder, TUR from 2017 ([id number]) in which high-grade urothelial carcinoma was identified. Clinical correlation is necessary. Case has been reviewed in consultation with Dr. Negron who concurs with the above diagnosis. IDC:[place] MICROSCOPIC DESCRIPTION Slides are reviewed. GROSS DESCRIPTION A - Received in fixative is one container labeled with the patient's name and designated posterior wall of bladder lesion. The specimen consists of one irregular fragment of light clark soft tissue that measures 0.2 x 0.2 x 0.1 cm. The specimen is totally submitted in one cassette. B - Received in fixative is one container labeled with the patient's name and designated dome of bladder lesion. The specimen consists of two irregular fragments of light clark soft tissue that in aggregate measure 0.1 and 0.4 x 0.3 x 0.1 cm. The specimen is totally submitted in one cassette. C - Received is one container labeled with the patient's name and designated prostate tissue. The specimen consists of multiple irregular fragments of pink-clark, rubbery, soft tissue that in aggregate weigh 5.2 gm and measure in aggregate 4 x 3 x 1 cm. Two minute fragments of clark-brown stones are also noted measuring in aggregate 1.5 x 0.1 x 0.1 cm. The entire soft tissue is submitted in five cassettes. The stones are for gross identification only. / SJ:rg 03/06/2022 TC:0 CPT: 09823 x3
[2022-03-06] MEDS: Lactated Ringers 1,000 ML 15 ML IV (09:05)
[2022-03-06 09:38] LABS: Hematocrit 31.9 % (40-54); Mean Corp Hgb Conc 34.5 g/dL (32-36); Mean Corpuscular Hgb 31.3 pg (27.0-32.0); Mean Corpuscular Volume 90.9 fL (80-94); Mean Platelet Vol. 8.4 fl (6.2-12.0); Platelet Count 116 K/mm3 (150-450); RBC Distribution Width CV 12.9 % (11.6-14.6); RBC Distribution Width SD 42.4 fl (35.1-43.9); Red Blood Count 3.51 M/mm3 (4.6-6.2)
[2022-03-06] MEDS: Cefazolin 2 GM in 0.9% Normal Saline 100 ML IV (10:22)
[2022-03-06] MEDS: Lubricating Jelly 60 GM Tube 30 GM (10:40)
--- NOTE | 2022-03-06 11:23 | DCINST_ITS ---
Discharge Instructions Diet Discharge Diet: No restrictions and Light diet - advance as tolerated Activity Discharge Activity: Return to Normal Activity Follow Up Care Please Follow Up With: Erasto Murhpy MD Test Results: Test results from this visit will be discussed in further detail at your follow- up appointment, if applicable. Discharge Plan Admission Primary Reason for Your Visit: turp Attending Provider: Erasto Murphy Primary Care Provider: Robson Guzman Discharge Orders/Prescriptions Prescriptions: New ciprofloxacin HCl [Cipro] 500 mg tablet 500 mg PO BID Qty: 6 0RF Continued levothyroxine 50 MCG tablet 100 mcg PO MOTUWETHFRSA isosorbide mononitrate 30 MG tablet extended release 24 hr 30 mg PO DAILY acetaminophen [Tylenol] 325 mg Tablet 650 mg PO Q4H PRN PRN (Reason: Pain 1-10 Or Fever) Qty: 0 0RF ramipril 10 mg capsule 10 mg PO BID atorvastatin 40 mg tablet 40 mg PO QHS Qty: 90 3RF Held aspirin 81 MG tablet 81 mg PO DAILY@0800 0RF Hold Instructions: Resume on 03/20/22. Referrals / Follow Up: Robson Guzman MD [Primary Care Provider] - Disposition Disposition (needs filled in before D/C Order can be placed): Home, Self Care
--- NOTE | 2022-03-06 11:23 | PCM.HP.STD ---
[facility] - General General Date of Admission: 03/06/22 Date of Service: 03/06/22 HPI Narrative COLLEEN HILL, is a 81 M who presents for transurethral section of prostate he also history of bladder cancer and cytology back positive with recent cystoscopy bladder biopsies as well [facility] Medical History (Updated 02/27/22 @ 15:08 by Beatriz Cantor) Alcohol use Atherosclerotic heart disease of elem coronary artery without angina pectoris Bladder cancer Cancer Cardiology follow-up encounter Essential hypertension Former smoker High cholesterol History of echocardiogram History of heart attack History of stress test Hyperlipidemia Hypertension Hypothyroidism Pure hypercholesterolemia Thyroid disease Wears glasses Wears partial dentures Home Medications levothyroxine 50 mcg tablet 100 mcg PO MOTUWETHFRSA 02/24/16 [History Last Taken 03/06/22] isosorbide mononitrate 30 mg tablet,extended release 24 hr 30 mg PO DAILY 11/03/16 [History Last Taken 03/06/22] aspirin 81 mg tablet,delayed release 81 mg PO DAILY@0800 06/27/18 [Rx Last Taken 02/19/22] atorvastatin 40 mg tablet 40 mg PO QHS #90 tabs 05/31/19 [Rx Last Taken 03/05/22] acetaminophen 325 mg tablet (Tylenol) 650 mg PO Q4H PRN PRN Pain 1-10 Or Fever #0 tabs 11/23/21 [Rx Last Taken Unknown] ramipril 10 mg capsule 10 mg PO BID 02/27/22 [History Last Taken 03/06/22] ciprofloxacin HCl 500 mg tablet (Cipro) 500 mg PO BID #6 tabs 03/06/22 [Rx Last Taken Unknown] Allergy/AdvReac Type Severity Reaction Status Date / Time No Known Allergies Allergy Verified 03/06/22 09:39 Family History Father CAD (coronary artery disease) Myocardial infarction, Onset Age: 56 Grandmother Heart disease Uncle Heart disease Surgical History (Updated 02/27/22 @ 15:08 by Beatriz Cantor) History of appendectomy History of cardiac catheterization History of cystoscopy Postsurgical percutaneous transluminal coronary angioplasty (PTCA) status (~09/07/01) Presence of aortocoronary bypass graft (~10/23/00) Presence of stent in coronary artery (~06/26/18) Social History Smoking Status: Former smoker how long ago did patient quit smokin years ago alcohol intake: current alcohol intake frequency: a few times a month Alcohol type: beer details: occasional caffeine: Yes Type: carbonated beverages Number of servings: 2 Vital Signs Vital Signs Vital Signs: 03/06/22 09:40 03/06/22 09:40 Temperature 98.0 F Temperature Source Temporal Pulse Rate 62 Respiratory Rate 18 Respiratory Pattern Normal Blood Pressure 146/74 H Blood Pressure Mean 98 Blood Pressure Source Monitor Blood Pressure Position Semi-Fowlers Blood Pressure Location Left Arm Pulse Ox 99 Oxygen Delivery Method Room Air Weight Weight: 71 kg Body Mass Index (BMI) 22.4 Results Lab / Micro Data Result Diagrams: 03/06/22 09:34 Labs: Laboratory Results - last 24 hr 03/06/22 09:34: WBC 4.0 L, RBC 3.51 L, Hgb 11.0 L, Hct 31.9 L, MCV 90.9, MCH 31.3, MCHC 34.5, RDW Std Deviation 42.4, RDW Coeff of Daron 12.9, Plt Count 116 L, MPV 8.4
--- NOTE | 2022-03-06 11:24 | PCM.OPRPT ---
Report of Operation Date of Procedure: 03/06/22 Pre-Operative Diagnosis: BPH with obstruction history of bladder cancer carcinoma in situ Post-Operative Diagnosis: The same Surgery/Procedure Performed:: 1. TURP #2 cystoscopy bladder biopsy fulguration of multiple sites Description of Surgical Findings:: Patient was taken back to the operating room at the smooth induction of general anesthesia he was placed in dorsolithotomy position when of the bladder with a 21 Panamanian rigid cystourethroscope once I got inside the bladder I switched over to the cystoscopy using both 30 and 70 degree lens there were multiple reddish areas within the bladder a biopsy was taken in the posterior wall and up in the dome I then used the Bugbee electrode and cauterized both these biopsy site with a reddish areas where he did have a history of bladder cancer recent cytology is positive. I then switched over the resectoscope inspection of the prostate he had a short length but obstructive prostate with bilateral hypertrophy no median lobe I then resected the floor the prostate the right lobe of the prostate left lobe the prostate resected the apical tissue resected the roof of the prostate had a nice wide open channel did a flow test had a good flow sphincter was intact and then I put a 22 Panamanian catheter in the bladder with continuous bladder irrigation patient's anesthetic was reversed he was taken back to PACU in good condition. Surgeon: Erasto Murphy Type of Anesthesia: General Drains: 22fr [address] way
[2022-03-06] MEDS: Ibuprofen 600 MG Tablet PO ×3 (13:03→21:43)
[2022-03-06] MEDS: Atorvastatin Calcium 40 MG Tablet PO (21:43)
[2022-03-06] MEDS: Ramipril 10 MG Capsule PO (21:43)
[2022-03-07 00:33] VITALS: BMI 22.5
[2022-03-07 03:30] VITALS: BP 157/74; PULSE 55; RESP 12; TEMP 36.4; O2SAT 98
[2022-03-07 04:33] VITALS: BMI 22.5
[2022-03-07] MEDS: Levothyroxine 100 MCG Tablet PO (05:15)
[2022-03-07] MEDS: Ibuprofen 600 MG Tablet PO (05:15)
[2022-03-07 08:10] VITALS: BP 156/71; PULSE 59; RESP 16; TEMP 36.5; O2SAT 99; BMI 22.5
[2022-03-07] MEDS: Isosorbide Mononitrate 30 MG Tablet PO (09:08)
--- NOTE | 2022-03-07 10:03 | NURSING ---
0900 CBI stopped and Orta catheter removed as ordered pt tolerated well without any complications noted.
== END 2022-03-07 10:20 | disposition home or self-care (01) ==
LOC: MS3 12:05
PROVIDERS: Anesthesiology; Admitting Provider Urology; PCP Family Medicine; Referring Provider Urology; Visit Provider Urology
PROC: (CPT 52601; principal; 2022-03-06 11:55)
DX: N40.1 Benign prostatic hyperplasia with lower urinary tract symptoms (principal); I25.10 Atherosclerotic heart disease of native coronary artery without angina pectoris; E78.00 Pure hypercholesterolemia, unspecified; Z87.891 Personal history of nicotine dependence; E03.9 Hypothyroidism, unspecified; I10 Essential (primary) hypertension; N13.8 Other obstructive and reflux uropathy; Z85.51 Personal history of malignant neoplasm of bladder; I25.2 Old myocardial infarction; Z79.899 Other long term (current) drug therapy; Z79.82 Long term (current) use of aspirin; Z79.890 Hormone replacement therapy
CPT/HCPCS: 52601; 00914; 85027; 88305; 88341; 88342; 99218; J7120; G0378; J2405

== ENCOUNTER → 2022-09-30 | Outpatient (CLI) | payer MEDICARE, SELFPAY | END | disposition home or self-care (01) | LOC: LABSPEC 16:38 | PROVIDERS: PCP Family Medicine; Referring Provider Urology; Visit Provider Urology | DX: R31.0 Gross hematuria (principal) | CPT/HCPCS: 87086 ==

== ENCOUNTER → 2022-12-09 | Outpatient (CLI) | payer MEDICARE, SELFPAY ==
[2022-12-09 10:27] LABS: Hematocrit 43.2 % (40-54); Hemoglobin 14.9 g/dL (13.0-16.5); Mean Corp Hgb Conc 34.5 g/dL (32-36); Mean Corpuscular Hgb 31.2 pg (27.0-32.0); Mean Corpuscular Volume 90.4 fL (80-94); Mean Platelet Vol. 8.7 fl (6.2-12.0); Platelet Count 196 K/mm3 (150-450); RBC Distribution Width SD 42.7 fl (35.1-43.9); Red Blood Count 4.78 M/mm3 (4.6-6.2); White Blood Count 5.1 K/mm3 (4.4-11.0)
[2022-12-09 11:51] LABS: ALB/GLOB Ratio 1.3 RATIO (0.9-2.4); AST(SGOT) 26 U/L (15-37); Alanine Aminotransfer ALT/SGPT 35 U/L (16-61); Alkaline Phosphatase 98 U/L (45-117); Anion Gap 5 (5-15); BUN 12 mg/dL (7-18); Calcium,Total 9.3 mg/dL (8.5-10.1); Chloride 110 mmol/L (98-107); Creatinine, Serum 0.86 mg/dL (0.70-1.30); EST Glomerular Filtration Rate 91 mL/min (>60); Est Glom Filt Rate - Afr Amer 110 mL/min (>60); Globulin 3.1 g/dL (2.2-4.2); Glucose 99 mg/dL (74-106); PSA,Total- Diagnostic 0.19 ng/mL (0.0-4.0); Potassium 4.3 mmol/L (3.5-5.1); Protein, Total 7.1 g/dL (6.4-8.2); Sodium Level 143 mmol/L (136-145); T4 Free Direct 1.04 ng/dL (0.76-1.46); Thyroid Stim Hormone (TSH) 1.38 uIU/mL (0.358-3.74)
== END | disposition home or self-care (01) ==
LOC: MFPLAB 09:17
PROVIDERS: PCP Family Medicine; Visit Provider Family Medicine
DX: I25.10 Atherosclerotic heart disease of native coronary artery without angina pectoris (principal); C67.9 Malignant neoplasm of bladder, unspecified; E03.9 Hypothyroidism, unspecified
CPT/HCPCS: 36415; 80053; 84153; 84439; 84443; 85027

== ENCOUNTER → 2023-01-09 | Outpatient (CLI) | payer MEDICARE, SELFPAY | END | disposition home or self-care (01) | LOC: LABSPEC 16:02 | PROVIDERS: PCP Family Medicine; Referring Provider Urology; Visit Provider Urology | DX: R31.9 Hematuria, unspecified (principal) | CPT/HCPCS: 87086 ==

== ENCOUNTER 2023-01-15 13:50 | Day surgery (SDC) | payer MEDICARE, SELFPAY ==
[2023-01-15] VITALS (8 sets, daily range): BP systolic 142–187; BP diastolic 73–87; PULSE 55–65; RESP 16–18; TEMP 36.1–36.5; O2SAT 98–100; BMI 23.2
--- NOTE | 2023-01-15 14:46 | RAD_ITS ---
STUDY: X-RAY - SOFT TISSUE NECK REASON FOR EXAM: Male, 82 years old. ? FB TECHNIQUE: XR Neck Soft Tissue 2 view(s) of the neck were obtained. COMPARISON: None FINDINGS: Normal anterior atlantoaxial articulation. No acute findings of the odontoid process. There are calcifications around the internal carotid arteries. This is consistent for atherosclerotic disease. There is straightening of the normal cervical lordosis. There is multi-level endplate spondylosis. There is multi-level degenerative disc disease with multilevel disc space narrowing. There is multi-level osseous foraminal stenosis. Normal visualized nasopharynx, oropharynx, hypopharynx. Normal epiglottis. Normal visualized subglottic tracheal air column. Normal prevertebral soft tissue structures. Normal visualized osseous structures. There is no demonstrated radiopaque foreign body. Median sternotomy wires. RAD/Neck for Soft Tissue IMPRESSION: There is no demonstrated radiopaque foreign body. There are degenerative changes as noted above. There are calcifications around the internal carotid arteries. This is consistent for atherosclerotic disease. Electronically Signed: Brown Badillo MD at 15:12 EDT ,
--- NOTE | 2023-01-15 14:48 | EX.ED.DYSGE1 ---
HPI History of Present Illness Chief Complaint: Foreign Body Informant: patient Narrative Narrative: Patient presents with possible foreign body in his throat. He states yesterday he ate some rice and it got stuck in his lower throat/upper chest. He states for about 45 minutes he could not get anything up or down. He was finally able to vomit up the rice and able to drink some water. Today he ate a small bite of a hot dog and feels like it is stuck in his throat. He states if he tries to eat or drink anything he vomits. He is tolerating secretions without difficulty and speaks with a strong voice. [facility] Medical History Alcohol use Atherosclerotic heart disease of [place] coronary artery without angina pectoris Bladder cancer Cancer Cardiology follow-up encounter Essential hypertension Former smoker High cholesterol History of echocardiogram History of heart attack History of stress test Hyperlipidemia Hypertension Hypothyroidism Pure hypercholesterolemia Thyroid disease Wears glasses Wears partial dentures Home Medications levothyroxine 50 mcg tablet 100 mcg PO MOTUWETHFRSA 02/24/16 [History Last Taken 03/06/22] isosorbide mononitrate 30 mg tablet,extended release 24 hr 30 mg PO DAILY 11/03/16 [History Last Taken 03/06/22] aspirin 81 mg tablet,delayed release 81 mg PO DAILY@0800 06/27/18 [Rx Last Taken 02/19/22] atorvastatin 40 mg tablet 40 mg PO QHS #90 tabs 05/31/19 [Rx Last Taken 03/05/22] acetaminophen 325 mg tablet (Tylenol) 650 mg PO Q4H PRN PRN Pain 1-10 Or Fever #0 tabs 11/23/21 [Rx Last Taken Unknown] ciprofloxacin HCl 500 mg tablet (Cipro) 500 mg PO BID #6 tabs 03/06/22 [Rx Last Taken Unknown] ramipril 10 mg capsule 10 mg PO BID #180 caps 07/01/22 [Rx Last Taken Unknown] Allergy/AdvReac Type Severity Reaction Status Date / Time No Known Allergies Allergy Verified 03/06/22 09:39 Family History Father CAD (coronary artery disease) Myocardial infarction, Onset Age: 56 Grandmother Heart disease Uncle Heart disease Surgical History History of appendectomy History of cardiac catheterization History of cystoscopy Postsurgical percutaneous transluminal coronary angioplasty (PTCA) status (~09/07/01) Presence of aortocoronary bypass graft (~10/23/00) Presence of stent in coronary artery (~06/26/18) Social History Smoking Status: Former smoker how long ago did patient quit smokin years ago alcohol intake: current alcohol intake frequency: a few times a month Alcohol type: beer details: occasional caffeine: Yes Type: carbonated beverages Number of servings: 2 ROS ROS ED Constitutional Constitutional ED: Denies chills or fever(s) Eyes Eyes: Denies change in vision or discharge from eye(s) ENT ENT ED: Reports other Details: Foreign body sensation in throat. ; Denies discharge from eye(s), rhinorrhea or sore throat Cardiovascular Cardiovascular: Denies chest pain or palpitations Respiratory/Chest Respiratory/Chest: Denies cough or dyspnea Gastrointestinal Gastrointestinal: Denies abdominal pain, nausea or vomiting Genitourinary Genitourinary ED: Denies difficulty urinating or dysuria Musculoskeletal Musculoskeletal: Denies back pain or extremity pain Integumentary Denies Abrasions or rash Neurologic Neurologic: Denies headache(s) or weakness Psychiatric Psychiatric: Denies anxiety or depression Allergic/Immunologic Allergic/Immunologic ED: Denies lip swelling or urticaria EXAM Physical Exam Narrative Exam Narrative: Patient sitting with head of bed elevated approximately 45 degrees. He is in no acute distress and tolerating secretions well. He is speaking full sentences. Const Vital Signs: 01/15/23 13:50 01/15/23 14:03 01/15/23 16:56 Temperature 97.7 F L 97.7 F L Temperature Source Temporal Temporal Pulse Rate 65 65 Respiratory Rate 18 18 Respiratory Effort Normal Respiratory Pattern Normal Blood Pressure 159/83 H 159/83 H Blood Pressure Mean 108 108 Pulse Ox 98 98 Oxygen Delivery Method Room Air Room Air Positive well nourished and well developed General Appearance ED: well developed HEENT Reports normocephalic and head/scalp atraumatic Eyes PERRL and EOMs intact bilaterally Neck supple Chest Wall inspection of chest normal and palpation of chest normal Resp normal respiratory effort and clear to auscultation bilaterally Cardio regular rate and regular rhythm GI normal to inspection, nondistended, normoactive bowel sounds Palpation: soft Extremity normal to inspection Neuro oriented x3 and no sensory deficits noted Sensorium / Orientation: alert Motor Exam: strength 5/5 throughout Psych mental status grossly normal Skin no rashes or lesions noted MDM MDM MDM Narrative Medical decision making narrative: X-ray of soft tissue neck as well as two-view chest x-ray obtained to evaluate for possible obstruction indicated by air-fluid level. Radiography Diagnostic Testing: Clinical Impression(s) from Imaging Studies Soft Tissue Neck X-Ray 01/15/23 14:46 IMPRESSION: There is no demonstrated radiopaque foreign body. There are degenerative changes as noted above. There are calcifications around the internal carotid arteries. This is consistent for atherosclerotic disease. Electronically Signed: Brown Badillo MD at 15:12 EDT , Chest X-Ray 01/15/23 14:55 IMPRESSION: No acute findings in the chest. Electronically Signed: Brown Badillo MD at 15:14 EDT , Treatment and Re-Evaluation :: Soft tissue neck x-ray and chest x-ray interpreted by myself with no acute findings. Radiology interpretation reviewed and agrees. Patient states that he is able to drink liquids okay today but with any solids he has difficulty and has to cough them back up. I did speak with Dr. Khan. He will call the team with plan for upper endoscopy. Patient taken to the endoscopy suite. Disposition will be determined based on these results. Discharge Plan Dx/Rx/DC Orders Clinical Impression: Dysphagia Disposition Disposition: Acute Care [facility] Discharge Date/Time: 01/15/23 16:50
--- NOTE | 2023-01-15 14:55 | RAD_ITS ---
EXAM: XR CHEST, 2 VIEWS CLINICAL INDICATION: pain TECHNIQUE: Frontal and lateral views of the chest. COMPARISON: No relevant prior studies available. FINDINGS: LUNGS AND PLEURAL SPACES: Unremarkable. No consolidation or edema. No pneumothorax. No effusion. HEART: Unremarkable. Cardiac silhouette not enlarged. MEDIASTINUM: Central airways and mediastinal contour are unremarkable. BONES/JOINTS: Multiple median sternotomy wires are noted consistent for cardiac surgery. SOFT TISSUES: Unremarkable. RAD/Chest PA and Lateral IMPRESSION: No acute findings in the chest. Electronically Signed: Brown Badillo MD at 15:14 EDT ,
[2023-01-15] MEDS: Lactated Ringers 1,000 ML 15 ML IV (17:07)
--- NOTE | 2023-01-15 17:20 | EGD_PTH ---
PATIENT: COLLEEN HILL LOC: EN U#:[id number] AGE/SX: 82/M ROOM: RE01/15/[address]: Dr. Tomas Khan DO : 1940 BED: DIS: 01/15/2023 SPEC #: [id number] RECD: 01/15/23 17:55 STATUS: VESTA KIAN #: [id number] KALEE: 01/15/23 17:[address]: Tomas Khan DEPT: SURGICAL PATHOLOGY RECD BY: Elizabeth Edwards ENTERED: 01/16/23 08:42 SP TYPE: EGD BIOPSY CODY DR: Dr. Tl Guzman MD Tissues: Esophagus, NOS Procedures: Special Stain Group II Surgery Specimen Level IV Alcian Blue/PAS (control) HEADER OPERATION: EGD ([facility] [place]), biopsy PRE-OP DIAGNOSIS: Foreign body TISSUE SUBMITTED: Esophageal ring biopsy MICROSCOPIC DIAGNOSIS Esophageal ring, biopsy: Gastroesophageal junctional mucosa with mild chronic inflammation. Focal changes of reflux. No evidence of goblet cell metaplasia. See comment. AM:irene 01/17/2023 COMMENT Alcian blue/PAS stain with matched control supports the above diagnosis. MICROSCOPIC DESCRIPTION Slides are reviewed. GROSS DESCRIPTION Received in fixative is one container labeled with the patient's name and designated esophageal ring biopsy. The specimen consists of multiple irregular fragments of light clark soft tissue that in aggregate measure 1.0 x 0.5 x 0.1 cm. The specimen is totally submitted in one cassette. / AM:irene 01/16/2023 TC:3 CPT: 04320, 66946
--- NOTE | 2023-01-15 17:21 | PCM.HP.BLA ---
History and Physical Date of Admission: 01/15/23 Patient presents with possible foreign body in his throat.? He states yesterday he ate some rice and it got stuck in his lower throat/upper chest.? He states for about 45 minutes he could not get anything up or down.? He was finally able to vomit up the rice and able to drink some water.? Today he ate a small bite of a hot dog and feels like it is stuck in his throat.? He states if he tries to eat or drink anything he vomits.? He is tolerating secretions without difficulty and speaks with a strong voice. PFSH PFS Medical History? Alcohol use Atherosclerotic heart disease of [place] coronary artery without angina pectoris Bladder cancer Cancer Cardiology follow-up encounter Essential hypertension Former smoker High cholesterol History of echocardiogram History of heart attack History of stress test Hyperlipidemia Hypertension Hypothyroidism Pure hypercholesterolemia Thyroid disease Wears glasses Wears partial dentures Home Medications levothyroxine 50 mcg tablet 100 mcg PO MOTUWETHFRSA 02/24/16 [History Last Taken 03/06/22] isosorbide mononitrate 30 mg tablet,extended release 24 hr 30 mg PO DAILY 11/03/16 [History Last Taken 03/06/22] aspirin 81 mg tablet,delayed release 81 mg PO DAILY@0800 06/27/18 [Rx Last Taken 02/19/22] atorvastatin 40 mg tablet 40 mg PO QHS #90 tabs 05/31/19 [Rx Last Taken 03/05/22] acetaminophen 325 mg tablet (Tylenol) 650 mg PO Q4H PRN PRN Pain 1-10 Or Fever #0 tabs 11/23/21 [Rx Last Taken Unknown] ciprofloxacin HCl 500 mg tablet (Cipro) 500 mg PO BID #6 tabs 03/06/22 [Rx Last Taken Unknown] ramipril 10 mg capsule 10 mg PO BID #180 caps 07/01/22 [Rx Last Taken Unknown] Allergy/AdvReac Type Severity Reaction Status Date / Time No Known Allergies Allergy ? ? Verified 03/06/22 09:39 Family History? Father?? CAD (coronary artery disease) Myocardial infarction,? Onset Age: 56Grandmother Heart diseaseUncle Heart disease Surgical History? 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 Smoking Status:? Former smoker how long ago did patient quit smoking:? 40 years ago alcohol intake:? current alcohol intake frequency: a few times a month Alcohol type: beer details:? occasional caffeine:? Yes Type: carbonated beverages Number of servings: 2 ROS ROS ED Constitutional Constitutional ED: Denies chills or fever(s) Eyes Eyes: Denies change in vision or discharge from eye(s) ENT ENT ED: Reports other Details: Foreign body sensation in throat. ; Denies discharge from eye(s), rhinorrhea or sore throat Cardiovascular Cardiovascular: Denies chest pain or palpitations Respiratory/Chest Respiratory/Chest: Denies cough or dyspnea Gastrointestinal Gastrointestinal: Denies abdominal pain, nausea or vomiting Genitourinary Genitourinary ED: Denies difficulty urinating or dysuria Musculoskeletal Musculoskeletal: Denies back pain or extremity pain Integumentary Denies Abrasions or rash Neurologic Neurologic: Denies headache(s) or weakness Psychiatric Psychiatric: Denies anxiety or depression Allergic/Immunologic Allergic/Immunologic ED: Denies lip swelling or urticaria EXAM Physical Exam Narrative Exam Narrative: Patient sitting with head of bed elevated approximately 45 degrees.? He is in no acute distress and tolerating secretions well.? He is speaking full sentences. Const Vital Signs: ? 01/15/23 13:50 01/15/23 14:03 01/15/23 16:56 Temperature 97.7 F L ? 97.7 F L Temperature Source Temporal ? Temporal Pulse Rate 65 ? 65 Respiratory Rate 18 ? 18 Respiratory Effort ? Normal ? Respiratory Pattern ? Normal ? Blood Pressure 159/83 H ? 159/83 H Blood Pressure Mean 108 ? 108 Pulse Ox 98 ? 98 Oxygen Delivery Method Room Air ? Room Air Positive well nourished and well developed General Appearance ED: well developed HEENT Reports normocephalic and head/scalp atraumatic Eyes PERRL and EOMs intact bilaterally Neck supple Chest Wall inspection of chest normal and palpation of chest normal Resp normal respiratory effort and clear to auscultation bilaterally Cardio regular rate and regular rhythm GI normal to inspection, nondistended, normoactive bowel sounds Palpation: soft Extremity normal to inspection Neuro oriented x3 and no sensory deficits noted Sensorium / Orientation: alert Motor Exam: strength 5/5 throughout Psych mental status grossly normal Skin no rashes or lesions noted MDM MDM MDM Narrative Medical decision making narrative: X-ray of soft tissue neck as well as two-view chest x-ray obtained to evaluate for possible obstruction indicated by air-fluid level. Radiography Diagnostic Testing: Clinical Impression(s) from Imaging Studies Soft Tissue Neck X-Ray? 01/15/23 14:46 IMPRESSION: There is no demonstrated radiopaque foreign body. ? There are degenerative changes as noted above. ? There are calcifications around the internal carotid arteries. This is consistent for atherosclerotic disease. ? Electronically Signed: Brown Badillo MD at 15:12 EDT , ? Chest X-Ray? 01/15/23 14:55 IMPRESSION: ? No acute findings in the chest. ? Electronically Signed: Brown Badillo MD at 15:14 EDT , ? Treatment and Re-Evaluation :: Soft tissue neck x-ray and chest x-ray interpreted by myself with no acute findings.? Radiology interpretation reviewed and agrees.? Patient states that he is able to drink liquids okay today but with any solids he has difficulty and has to cough them back up.? He will undergo an upper endoscopy. He was explained alternatives, risk, benefits including outstanding bleeding, infection, sepsis, perforation, need for emergent surgery . He will have an ASA of 3.
--- NOTE | 2023-01-15 17:45 | OP.EGD_ITS ---
Patient Name: Ruddy Randolph Procedure Date: 01/15/2023 5:12 PM Date of : 1940 Age: 82 Procedure: Upper GI endoscopy Indications: Dysphagia Providers: Tomas Khan DO Medicines: Monitored Anesthesia Care Patient Profile: This is an 82 year old male. Refer to note in patient chart for documentation of history and physical. Patient has symptoms of acute dysphagia. Complications: No immediate complications. Procedure: Pre-Anesthesia Assessment: - Prior to the procedure, a History and Physical was performed, and patient medications and allergies were reviewed. The risks and benefits of the procedure and the sedation options and risks were discussed with the patient. All questions were answered and informed consent was obtained. Patient identification and proposed procedure were verified by the physician. Mental Status Examination: normal. Prophylactic Antibiotics: The patient does not require prophylactic antibiotics. Prior Anticoagulants: The patient has taken no previous anticoagulant or antiplatelet agents. After reviewing the risks and benefits, the patient was deemed in satisfactory condition to undergo the procedure. The anesthesia plan was to use monitored anesthesia care (MAC). Immediately prior to administration of medications, the patient was re-assessed for adequacy to receive sedatives. The heart rate, respiratory rate, oxygen saturations, blood pressure, adequacy of pulmonary ventilation, and response to care were monitored throughout the procedure. The physical status of the patient was re-assessed after the procedure. After obtaining informed consent, the endoscope was passed under direct vision. Throughout the procedure, the patient's blood pressure, pulse, and oxygen saturations were monitored continuously. The gastroscope was introduced through the mouth, and advanced to the second part of duodenum. The upper GI endoscopy was accomplished without difficulty. The patient tolerated the procedure well. Scope In: 5:32:25 PM Scope Out: 5:39:34 PM Total Procedure Duration Time 0 hours 7 minutes 9 seconds Findings: Food was found in the lower third of the esophagus. Removal was accomplished with a rat-toothed forceps. Verification of patient identification for the specimen was done. Estimated blood loss was minimal. A severe Schatzki ring was found in the lower third of the esophagus. A guide wire was placed, then the scope was withdrawn. Using the wire as a guide, dilation with a 12-13.5-15 mm balloon dilator was performed to 15 mm. The dilation site was examined and showed mild improvement in luminal narrowing. Estimated blood loss was minimal. The Z-line was irregular and was found 40 cm from the incisors. Biopsies were taken with a cold forceps for histology. Verification of patient identification for the specimen was done. Estimated blood loss was minimal. A medium-sized hiatal hernia was present. A medium amount of food (residue) was found in the gastric body. No gross lesions were noted in the duodenal bulb. Impression: - Food was found in the esophagus. Removal was successful. - Severe Schatzki ring. Dilated. - Z-line irregular, 40 cm from the incisors. Biopsied. - Medium-sized hiatal hernia. - A medium amount of food (residue) in the stomach. - No gross lesions in the duodenal bulb. Recommendation: - Discharge patient to home. - Full liquid diet. - Continue present medications. - Await pathology results. - Repeat upper endoscopy in 3 months for surveillance. Procedure Code(s): --- Professional --- 37879, Esophagogastroduodenoscopy, flexible, transoral; with removal of foreign body(s) 08371, Esophagogastroduodenoscopy, flexible, transoral; with insertion of guide wire followed by passage of dilator(s) through esophagus over guide wire 34515, 59, Esophagogastroduodenoscopy, flexible, transoral; with biopsy, single or multiple CPT copyright 2017 [employer]. All rights reserved. The codes documented in this report are preliminary and upon print operator review may be revised to meet current compliance requirements. Tomas Khan DO 01/15/2023 5:44:52 PM This report has been signed electronically. Number of Addenda: 0 Note Initiated On: 01/15/2023 5:12 PM
--- NOTE | 2023-01-15 17:46 | OP.CCLET_ITS ---
01/15/2023 Robson Guzman [address] [place] [address] Re : Upper GI endoscopy procedure for Ruddy Randolph Dear Dr. Guzman This procedure was performed on Sunday, January 15, 2023. My impressions and recommendations are as follows: Impressions : - Food was found in the esophagus. Removal was successful. - Severe Schatzki ring. Dilated. - Z-line irregular, 40 cm from the incisors. Biopsied. - Medium-sized hiatal hernia. - A medium amount of food (residue) in the stomach. - No gross lesions in the duodenal bulb. Recommendations : - Discharge patient to home. - Full liquid diet. - Continue present medications. - Await pathology results. - Repeat upper endoscopy in 3 months for surveillance. My findings are described in the full procedure note, which is enclosed. If I can be of further assistance, please feel free to contact me at . Sincerely, Tomas Khan, 01/15/2023 5:44:52 PM This report has been signed electronically.
== END 2023-01-15 18:37 | disposition home or self-care (01) ==
LOC: ED 16:43 → EN 16:47 → ACINP 16:48
PROVIDERS: Emergency Provider Emergency Medicine; PCP Family Medicine; Referring Provider Family Medicine; Visit Provider Internal Medicine Gastroenterology
PROC: 0DJ08ZZ Inspection of Upper Intestinal Tract, Via Natural or Artificial Opening Endoscopic (ICD-10-PCS; CPT 43235; principal; 2023-01-15 17:15)
DX: T18.128A Food in esophagus causing other injury, initial encounter (principal); Z87.891 Personal history of nicotine dependence; I10 Essential (primary) hypertension; E03.9 Hypothyroidism, unspecified; K44.9 Diaphragmatic hernia without obstruction or gangrene; E78.00 Pure hypercholesterolemia, unspecified; I25.10 Atherosclerotic heart disease of native coronary artery without angina pectoris; K22.2 Esophageal obstruction; X58.XXXA Exposure to other specified factors, initial encounter; Z79.899 Other long term (current) drug therapy; Z79.890 Hormone replacement therapy
CPT/HCPCS: 43249; 43239; 43247; 70360; 71046; 88305; 88313; 99281; 99283; J7120

== ENCOUNTER 2023-04-28 15:09 | Emergency (ER) | payer MEDICARE, SELFPAY ==
[2023-04-28 15:11] VITALS: BP 156/77; PULSE 61; RESP 16; TEMP 36.6; O2SAT 100
[2023-04-28 15:14] VITALS: BP 158/65; PULSE 61; RESP 16; O2SAT 100
[2023-04-28 15:25] VITALS: BP 127/65; BP 160/69; BP 166/65; PULSE 64; PULSE 66; PULSE 89
--- NOTE | 2023-04-28 15:59 | EX.ED.DYSGE1 ---
HPI History of Present Illness Chief Complaint: Syncope Informant: patient, spouse/S.O. and family Onset/Context/Timing Onset: Today Context: Sudden Onset Timing: Intermittent and Lasts (Few seconds) Quality: Lightheaded Location: Generalized Worsened by: Nothing Relieved by: Nothing Narrative Narrative: Patient presents with a syncopal episode that occurred today. Patient states he stood up after having a bowel movement and started to walk. Patient states he passed out briefly after that. Patient states he fell to the floor and hit his head. states she came immediately and he was awake and alert when she showed up. thinks he was only out for a few seconds. Patient states he did feel lightheaded prior to passing out. Patient states that he was having some lower abdominal cramping while he was having a bowel movement and after he had a bowel movement. Patient denies any melena or hematochezia. Patient denies any chest pain or palpitations. Patient denies any shortness of breath or cough. Patient denies any dysuria or hematuria. Patient does admit to some urinary frequency. Patient does have a history of coronary artery disease and has had a coronary artery bypass graft. Family states patient had similar episode approximately 10 days ago. Patient states that at that time he did not eat or drink anything during the morning and felt lightheaded while he was at a wedding. Patient states he felt better after drinking something. [facility] Medical History Alcohol use Atherosclerotic heart disease of [place] coronary artery without angina pectoris Bladder cancer Cancer Cardiology follow-up encounter Essential hypertension Former smoker High cholesterol History of echocardiogram History of heart attack History of stress test Hyperlipidemia Hypertension Hypothyroidism Pure hypercholesterolemia Thyroid disease Wears glasses Wears partial dentures Home Medications levothyroxine 50 mcg tablet 100 mcg PO MOTUWETHFRSA 02/24/16 [History Last Taken 03/06/22] isosorbide mononitrate 30 mg tablet,extended release 24 hr 30 mg PO DAILY 11/03/16 [History Last Taken 03/06/22] aspirin 81 mg tablet,delayed release 81 mg PO DAILY@0800 06/27/18 [Rx Last Taken 02/19/22] atorvastatin 40 mg tablet 40 mg PO QHS #90 tabs 05/31/19 [Rx Last Taken 03/05/22] acetaminophen 325 mg tablet (Tylenol) 650 mg (2 x 325 mg) PO Q4H PRN PRN Pain 1-10 Or Fever #0 tabs 11/23/21 [Rx Last Taken Unknown] oxybutynin chloride 10 mg tablet,extended release 24 hr 10 mg PO DAILY 01/16/23 [History Last Taken Unknown] ramipril 10 mg capsule 10 mg PO DAILY #90 caps 01/16/23 [Rx Last Taken Unknown] pantoprazole 40 mg tablet,delayed release 40 mg PO BID #60 tabs 02/04/23 [Rx Last Taken Unknown] Allergy/AdvReac Type Severity Reaction Status Date / Time No Known Allergies Allergy Verified 04/28/23 15:10 Family History Father CAD (coronary artery disease) Myocardial infarction, Onset Age: 56 Grandmother Heart disease Uncle Heart disease Surgical History History of appendectomy History of cardiac catheterization History of cystoscopy Postsurgical percutaneous transluminal coronary angioplasty (PTCA) status (~09/07/01) Presence of aortocoronary bypass graft (~10/23/00) Presence of stent in coronary artery (~06/26/18) Social History Smoking Status: Former smoker how long ago did patient quit smokin years ago alcohol intake: current alcohol intake frequency: a few times a month Alcohol type: beer details: occasional caffeine: Yes Type: carbonated beverages Number of servings: 2 ROS ROS ED Constitutional Constitutional ED: Denies chills or fever(s) Eyes Eyes: Denies blurry vision or change in vision ENT ENT ED: Denies rhinorrhea or sore throat Cardiovascular Cardiovascular: Denies chest pain or palpitations Respiratory/Chest Respiratory/Chest: Denies cough or dyspnea Gastrointestinal Gastrointestinal: Reports abdominal pain; Denies nausea or vomiting Genitourinary Genitourinary ED: Denies dysuria or hematuria Musculoskeletal Musculoskeletal: Denies back pain or neck pain Integumentary Denies abscess or rash Neurologic Neurologic: Reports headache(s) and weakness Allergic/Immunologic Allergic/Immunologic ED: Denies mouth swelling or urticaria EXAM Physical Exam Const Vital Signs: 04/28/23 15:11 04/28/23 15:14 04/28/23 15:14 Temperature 98 F Temperature Source Oral Pulse Rate 61 61 Pulse Rate [Lying] Pulse Rate [Sitting (for 1 minute prior to obtaining)] Pulse Rate [Standing (for 1 minute prior to obtaining)] Respiratory Rate 16 16 Respiratory Effort Normal Non-Labored Respiratory Pattern Normal Blood Pressure 156/77 H 158/65 H Blood Pressure [Lying] Blood Pressure [Sitting (for 1 minute prior to obtaining)] Blood Pressure [Standing (for 1 minute prior to obtaining)] Blood Pressure Mean 103 96 Blood Pressure Mean [Lying] Blood Pressure Mean [Sitting (for 1 minute prior to obtaining)] Blood Pressure Mean [Standing (for 1 minute prior to obtaining)] Pulse Ox 100 100 Oxygen Delivery Method Room Air Room Air 04/28/23 15:25 04/28/23 15:25 04/28/23 17:00 Temperature Temperature Source Pulse Rate 74 Pulse Rate [Lying] 64 Pulse Rate [Sitting (for 1 minute prior to obtaining)] 66 Pulse Rate [Standing (for 1 minute prior to obtaining)] 89 Respiratory Rate 18 Respiratory Effort Normal Non-Labored Respiratory Pattern Normal Blood Pressure Blood Pressure [Lying] 166/65 H Blood Pressure [Sitting (for 1 minute prior to obtaining)] 160/69 H Blood Pressure [Standing (for 1 minute prior to obtaining)] 127/65 H Blood Pressure Mean Blood Pressure Mean [Lying] 98 Blood Pressure Mean [Sitting (for 1 minute prior to obtaining)] 99 Blood Pressure Mean [Standing (for 1 minute prior to obtaining)] 85 Pulse Ox 99 Oxygen Delivery Method Room Air Positive well nourished and well developed General Appearance ED: well developed and NAD HEENT HEENT Narrative: There is a hematoma to the right temporal area. There is a small puncture wound noted. There is minimal gapping of the wound margins. There is no active bleeding noted. There is no bony crepitance or step-off. Eyes PERRL and EOMs intact bilaterally Neck supple and no JVD Resp normal respiratory effort and clear to auscultation bilaterally Cardio regular rate and regular rhythm GI non-tender and non-distended Palpation: soft Extremity normal to inspection General Extremety ED: Negative for edema or tenderness General Extremity: Negative for edema Neuro oriented x3, CN's II-XII intact bilaterally and no sensory deficits noted Sensorium / Orientation: alert Motor Exam: strength 5/5 throughout Psych mental status grossly normal MDM MDM MDM Narrative Medical decision making narrative: Differential diagnosis includes cardiac dysrhythmia, cardiac ischemia, electrolyte abnormality, pneumonia, pneumothorax, intracranial bleeding, dehydration, colitis, and urinary tract infection. CT scan of the brain will be obtained to assess for intracranial bleeding. EKG will be obtained to assess for cardiac dysrhythmia and cardiac ischemia. Chest x-ray will be obtained to assess for pneumonia. CBC will be obtained to assess for leukocytosis and anemia. Basic metabolic profile will be obtained to assess for electrolyte abnormality and renal function. Urinalysis will be obtained to assess for urinary tract infection. High-sensitivity troponin will be obtained to assess for cardiac ischemia. 2-hour repeat high-sensitivity troponin will be obtained to assess for ongoing cardiac ischemia. Orthostatic vital signs will be obtained to assess for dehydration. Lab Data Attestation: I reviewed the patient's lab results. Lab results narrative: BC was reviewed and was within normal limits. Basic metabolic profile was reviewed and was within normal limits. High-sensitivity troponin was reviewed and was normal at 58. 2-hour repeat high-sensitivity troponin was reviewed and was normal at 57. Urinalysis was reviewed. Leukocyte esterase was 100 with 10-25 red blood cells and 10-25 white blood cells. Occult blood was 250. There is rare bacteria. Labs: Laboratory Results - last 24 hr 04/28/23 04/28/23 04/28/23 15:18 17:30 19:40 WBC 5.8 RBC 4.15 L Hgb 13.4 Hct 37.4 L MCV 90.1 MCH 32.3 H MCHC 35.8 RDW Std Deviation 44.4 H RDW Coeff of Daron 13.4 Plt Count 167 MPV 9.0 Immature Gran % (Auto) 0.200 Neut % (Auto) 56.1 Lymph % (Auto) 29.6 [place] % (Auto) 9.2 Eos % (Auto) 4.0 Baso % (Auto) 0.9 Absolute Neuts (auto) 3.2 Absolute Lymphs (auto) 1.70 Nucleated RBC % 0 Sodium 144 Potassium 3.6 Chloride 113 H Carbon Dioxide 21.0 Anion Gap 10 BUN 15 Creatinine 1.13 Est GFR (MDRD) Af Amer 80 Est GFR (MDRD) Non-Af 66 BUN/Creatinine Ratio 13.3 Glucose 98 Calcium 8.6 Troponin I High Sens 58 57 Urine Color Yellow Urine Clarity Sl. Cloudy Urine pH 5.0 Ur Specific Anderson 1.010 Urine Protein 30 H Urine Glucose (UA) Normal Urine Ketones Negative Urine Occult Blood 250 H Urine Nitrite Negative Urine Bilirubin Negative Urine Urobilinogen Normal Ur Leukocyte Esterase 100 H Urine RBC 10-25 SEEN Urine WBC 10-25 SEEN Ur Squamous Epith Cells 0-5 SEEN Amorphous Sediment 1+ URATE Urine Bacteria RARE Urine Mucus 0 SEEN Radiography Diagnostic Testing: Clinical Impression(s) from Imaging Studies Brain CT 04/28/23 16:11 IMPRESSION: Hematoma in the scalp overlying the right frontal bone without acute skull fracture or intracranial bleed Atrophy and mild periventricular white matter ischemic changes Electronically Signed: Vincenzo Arteaga MD at 17:00 EDT , Chest X-Ray 04/28/23 16:30 IMPRESSION: No acute disease status post CABG Electronically Signed: Vincenzo Arteaga MD at 17:02 EDT , Portable 1 view chest x-ray was obtained. On my independent interpretation, lung louis are clear. There is normal cardiac silhouette. Bony thorax is normal. There is no acute process noted. Radiologist also interpreted the x-ray and agrees. CT scan of the brain was obtained. There is no acute intracranial abnormality. This was interpreted by the radiologist and was also independently reviewed by myself. EKG Initial EKG: Attestation: I personally reviewed and interpreted this EKG as follows: Interpretation: Sinus Rhythm (61), No Acute Injury Pattern and RBBB Comments: EKG was obtained. On my independent interpretation, it showed a normal sinus rhythm with a rate of 61. WV interval was normal at 158. QRS interval was slightly prolonged at 122 ms. QTc interval was normal at 463 ms. [place] was borderline left axis deviation at -11. There are no acute ST or T wave changes. Prior EKG tracings: available for review Prior: Changed (Compared to EKG dated 11/22/2021, the right bundle branch block pattern is new.) Treatment and Re-Evaluation :: Orthostatic vital signs were reviewed and were positive. Patient was given IV fluids. Patient was given aspirin. Patient was feeling better on reevaluation. Patient is able to ambulate to the bathroom. Patient was assessed. Advised of his findings. Patient was instructed to follow-up with his primary care physician in 3 to 5 days. Patient was instructed return if worse in any way. Patient understood and was agreeable with plan. All questions were answered. Discharge Plan Triage Chief Complaint: Syncope Other Complaint: Head Injury ED Provider: Jose Antonio Martinez Dx/Rx/DC Orders Clinical Impression: Orthostatic hypotension, Closed head injury, Syncope and collapse Instructions: ED Head Injury (Adult), ED Hypotension, Orthostatic, ED Fainting, Uncertain Cause Prescriptions: No Action oxybutynin chloride 10 mg tablet extended release 24hr 10 mg PO DAILY Patient Comments: TAKE 1 TABLET BY MOUTHCONCE DAILY ramipril 10 mg capsule 10 mg PO DAILY Qty: 90 3RF levothyroxine 50 MCG tablet 100 mcg PO MOTUWETHFRSA isosorbide mononitrate 30 MG tablet extended release 24 hr 30 mg PO DAILY aspirin 81 MG tablet 81 mg PO DAILY@0800 0RF Hold Instructions: Resume on 03/20/22. acetaminophen [Tylenol] 325 mg Tablet 650 mg PO Q4H PRN PRN (Reason: Pain 1-10 Or Fever) Qty: 0 0RF atorvastatin 40 mg tablet 40 mg PO QHS Qty: 90 3RF pantoprazole 40 mg tablet,delayed release (DR/EC) 40 mg PO BID Qty: 60 3RF Primary Care Provider: Robson Guzman Referrals: Robson Guzman MD [Primary Care Provider] - 3-5 Days Disposition Disposition: Home, Self Care
--- NOTE | 2023-04-28 16:11 | CT_ITS ---
STUDY: CT BRAIN WITHOUT CONTRAST REASON FOR EXAM: Male, 82 years old. Head injury RADIATION DOSAGE (If Supplied By Facility): CTDIvol = ( 44.99 ) mGy, DLP = ( 829.85 ) mGycm TECHNIQUE: Transaxial CT imaging of the brain was performed without administration of intravenous contrast material. Individualized dose optimization techniques were used for this CT. COMPARISON: No relevant priors. FINDINGS: There is a hematoma overlying the right frontal bone without associated skull fracture . Calcific plaquing of the cavernous carotids Atrophy and mild periventricular white matter ischemic change. Normal basal ganglia and thalami. Normal brainstem. Normal cerebellum. Partial empty sella deformity likely of no significance There is no intracranial hemorrhage. There are no findings of an acute ischemic infarction. Normal visualized paranasal sinuses. Postsurgical changes of the orbits CT/Brain/Head without Contrast IMPRESSION: Hematoma in the scalp overlying the right frontal bone without acute skull fracture or intracranial bleed Atrophy and mild periventricular white matter ischemic changes Electronically Signed: Vincenzo Arteaga MD at 17:00 EDT ,
--- NOTE | 2023-04-28 16:11 | EKG12_ITS ---
Test Reason : SYNCOPE Blood Pressure : / mmHG Vent. Rate : 061 BPM Atrial Rate : 061 BPM P-R Int : 158 ms QRS Dur : 122 ms QT Int : 460 ms P-R-T Axes : 025 -11 008 degrees QTc Int : 463 ms Normal sinus rhythm Right bundle branch block Abnormal ECG Confirmed by YOSELIN TRIVEDI, SHAILESH ([id number]), commissioning editor RADHA BACK ([id number]) on 05/02/2023 2:28:22 PM Referred By: ADA Confirmed By:SHAILESH WYATT MD
[2023-04-28] MEDS: 0.9% Normal Saline (1000mL) 1,000 ML 1000 ML IV (16:16)
[2023-04-28 16:25] LABS: Absolute Neutrophil Count 3.2 X10^3/uL (2.0-7.7); Basophil# 0.05 X10^3/uL; Basophil% 0.9 % (0-1); Eosinophil# 0.23 X10^3/uL; Hematocrit 37.4 % (40-54); Hemoglobin 13.4 g/dL (13.0-16.5); Lymphocyte % 29.6 % (19-41); Mean Corp Hgb Conc 35.8 g/dL (32-36); Mean Corpuscular Hgb 32.3 pg (27.0-32.0); Mean Corpuscular Volume 90.1 fL (80-94); Monocyte# 0.53 X10^3/uL; Monocyte% 9.2 % (0-10); NRBC Flagged by Analyzer 0 % (0-5); Neutrophil # 3.23 X10^3/uL (2.7-7.7); Neutrophil % 56.1 % (47-70); Platelet Count 167 K/mm3 (150-450); RBC Distribution Width CV 13.4 % (11.6-14.6); RBC Distribution Width SD 44.4 fl (35.1-43.9); Red Blood Count 4.15 M/mm3 (4.6-6.2); White Blood Count 5.8 K/mm3 (4.4-11.0)
--- NOTE | 2023-04-28 16:30 | RAD_ITS ---
STUDY: X-RAY CHEST REASON FOR EXAM: Male, 82 years old. Syncope TECHNIQUE: AP portable COMPARISON: January 15, 2023 FINDINGS: The lungs are clear and expanded. There is no demonstrated pleural abnormality. Postop change status post median sternotomy and CABG. Normal size heart. Normal mediastinum and francia. Normal visualized pulmonary arteries. Normal visualized aortic arch and descending thoracic aorta. Dorsal spine and shoulders demonstrate degenerative change. Normal visualized ribs, and clavicles. There is no demonstrated abnormality of the visualized soft tissue structures of the upper abdomen. RAD/Chest 1 View (Portable) IMPRESSION: No acute disease status post CABG Electronically Signed: Vincenzo Arteaga MD at 17:02 EDT ,
[2023-04-28 16:50] LABS: Anion Gap 10 (5-15); BUN 15 mg/dL (7-18); BUN/Creat Ratio 13.3 RATIO (10-20); Calcium,Total 8.6 mg/dL (8.5-10.1); Chloride 113 mmol/L (98-107); Creatinine, Serum 1.13 mg/dL (0.70-1.30); EST Glomerular Filtration Rate 66 mL/min (>60); Est Glom Filt Rate - Afr Amer 80 mL/min (>60); Glucose 98 mg/dL (74-106); Potassium 3.6 mmol/L (3.5-5.1); Sodium Level 144 mmol/L (136-145); Troponin-I HS (w/2H Reflex) 58 pg/mL (3.0-78.0)
[2023-04-28 17:00] VITALS: PULSE 74; RESP 18; O2SAT 99
[2023-04-28] MEDS: Aspirin 81 MG TAB.CHEW 324 MG PO (17:05)
[2023-04-28 18:20] LABS: Reflex Troponin-HS? (from REC) Y
--- NOTE | 2023-04-28 19:13 | ED.RN ---
CALLED LAB TO CHECK ON TROPONIN, SENT AT 1730 (DUE AT 1718) RECEIVED AT 1825. NO RESULTS AT 1913. LAB WILL RE-RUN SAMPLE WAS REJECTED BY MACHINE
[2023-04-28 19:30] LABS: Troponin-I HS 57 pg/mL (3.0-78.0)
[2023-04-28 19:47] LABS: Mucous, Urine 0 SEEN /hpf (<or=2+)
[2023-04-28 19:49] LABS: Color, Urine Yellow (Yellow); Glucose, Dipstick Normal (Normal); Ketone-Dipstick Negative (Negative); Leukocyte Esterase-Dipstick 100 /ul (Negative); Nitrite-Dipstick Negative (Negative); Occult Blood-Urine 250 /ul (Negative); Protein-Dipstick 30 mg/dl (Negative); Urine Bilirubin Dipstick Negative (Negative); Urine Clarity Sl. Cloudy (Clear); Urine Urobilinogen Normal (Normal)
[2023-04-28 19:57] LABS: Bacteria RARE /hpf (None Seen); Red Blood Cells-Urine 10-25 SEEN /hpf (0-5); Squamous Epithelial Cells - UA 0-5 SEEN /hpf (0-5); White Blood Cells 10-25 SEEN /hpf (0-5)
[2023-04-28 19:58] LABS: Amorphous Sediment 1+ URATE
[2023-04-28 20:09] VITALS: BP 180/86; PULSE 65; RESP 19; O2SAT 97
== END 2023-04-28 20:15 | disposition home or self-care (01) ==
PROVIDERS: Emergency Provider Emergency Medicine; PCP Family Medicine; Visit Provider Emergency Medicine
DX: S09.90XA Unspecified injury of head, initial encounter (principal); E78.00 Pure hypercholesterolemia, unspecified; I95.1 Orthostatic hypotension; W19.XXXA Unspecified fall, initial encounter; Z87.891 Personal history of nicotine dependence; I10 Essential (primary) hypertension; I25.10 Atherosclerotic heart disease of native coronary artery without angina pectoris; R35.0 Frequency of micturition; Z95.1 Presence of aortocoronary bypass graft
CPT/HCPCS: 70450; 71045; 80048; 81001; 84484; 85025; 93005; 96360; 99285

== ENCOUNTER → 2023-06-12 | Outpatient (CLI) | payer MEDICARE, SELFPAY ==
[2023-06-12 12:38] LABS: T4 Free Direct 1.44 ng/dL (0.76-1.46); Thyroid Stim Hormone (TSH) 0.86 uIU/mL (0.358-3.74)
== END | disposition home or self-care (01) ==
LOC: MFPLAB 10:13
PROVIDERS: PCP Family Medicine; Visit Provider Family Medicine
DX: E03.9 Hypothyroidism, unspecified (principal)
CPT/HCPCS: 36415; 84439; 84443

== ENCOUNTER 2023-08-15 10:36 | Observation (INO) | payer MEDICARE, SELFPAY ==
--- NOTE | 2023-08-05 07:58 | EKG12_ITS ---
Test Reason : EW Blood Pressure : / mmHG Vent. Rate : 058 BPM Atrial Rate : 058 BPM P-R Int : 146 ms QRS Dur : 118 ms QT Int : 446 ms P-R-T Axes : 022 -43 009 degrees QTc Int : 437 ms Sinus bradycardia Left axis deviation Right bundle branch block Abnormal ECG Confirmed by YOSELIN TRIVEDI, SHAILESH ([id number]), assistant editor HARJIT BETHEA ([id number]) on 08/06/2023 5:57:43 AM Referred By: Erasto Murphy Confirmed By:SHAILESH WYATT MD
[2023-08-05 09:00] LABS: Absolute Lymphocyte Count 1.56 X10^3/uL (0.83-4.51); Absolute Neutrophil Count 4.8 X10^3/uL (2.0-7.7); Basophil# 0.04 X10^3/uL; Basophil% 0.5 % (0-1); Eosinophils% 2.7 % (0-5); Hematocrit 39.3 % (40-54); Lymphocyte # 1.56 X10^3/ul (0.83-4.51); Lymphocyte % 21.3 % (19-41); Mean Corp Hgb Conc 35.6 g/dL (32-36); Mean Corpuscular Hgb 31.7 pg (27.0-32.0); Mean Corpuscular Volume 89.1 fL (80-94); Mean Platelet Vol. 8.4 fl (6.2-12.0); Monocyte# 0.69 X10^3/uL; Monocyte% 9.4 % (0-10); NRBC Flagged by Analyzer 0 % (0-5); Neutrophil # 4.84 X10^3/uL (2.7-7.7); Platelet Count 231 K/mm3 (150-450); RBC Distribution Width CV 13.2 % (11.6-14.6); RBC Distribution Width SD 42.9 fl (35.1-43.9); Red Blood Count 4.41 M/mm3 (4.6-6.2); White Blood Count 7.3 K/mm3 (4.4-11.0)
[2023-08-05 09:32] LABS: Anion Gap 4 (5-15); BUN 15 mg/dL (7-18); BUN/Creat Ratio 13.5 RATIO (10-20); Calcium,Total 9.1 mg/dL (8.5-10.1); Chloride 111 mmol/L (98-107); Creatinine, Serum 1.11 mg/dL (0.70-1.30); EST Glomerular Filtration Rate 67 mL/min (>60); Est Glom Filt Rate - Afr Amer 82 mL/min (>60); Glucose 114 mg/dL (74-106); Potassium 3.8 mmol/L (3.5-5.1); Sodium Level 141 mmol/L (136-145); Thyroid Stim Hormone (TSH) 1.98 uIU/mL (0.358-3.74)
[2023-08-15] VITALS (13 sets, daily range): BP systolic 135–178; BP diastolic 71–96; PULSE 61–115; RESP 12–18; TEMP 36.1–37.2; O2SAT 98–100; BMI 21.5
--- NOTE | 2023-08-15 | BLB_PTH ---
PATHOLOGY RESULTS PATIENT: COLLEEN HILL LOC: MS3 U#:[id number] AGE/SX: 83/M ROOM: [facility] [place] RE08/15/[address]: Dr. Erasto Murphy MD : 1940 BED: 1 DIS: 08/16/2023 SPEC #: [id number] RECD: 08/15/23 13:20 STATUS: VESTA MARSHALLZain #: [id number] KALEE: 08/15/23 00:[address]: Erasto Murphy DEPT: SURGICAL PATHOLOGY RECD BY: Melo James ENTERED: 08/15/23 13:20 SP TYPE: TURB OTHR DR: Dr. Tl Guzman MD Tissues: Urinary bladder, NOS Procedures: Surgery Specimen Level V HEADER OPERATION: Cysto, transurethral resection of bladder neck PRE-OP DIAGNOSIS: BPH TISSUE SUBMITTED: Bladder tissue MICROSCOPIC DIAGNOSIS Bladder tissue, transurethral resection: Fragments of benign urothelial mucosa with minimal chronic inflammation. Fragments of benign prostatic tissue. Negative for malignancy. See comment. TAHMINA:irene 08/18/2023 COMMENT Fragments of smooth muscle bundles consistent with detrusor muscle are also noted in the specimen. 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 MICROSCOPIC DESCRIPTION Slides are reviewed. GROSS DESCRIPTION Received in fixative is one container labeled with the patient's name and designated bladder tissue. The specimen consists of multiple irregular fragments of clark, indurated tissue that in aggregate measure 1.5 x 1.5 x 0.3 cm. The specimen is totally submitted in one cassette. / TAHMINA:irene 08/15/2023 TC:3 CPT: 43177
--- OUTSIDE RECORDS SUMMARY | 2023-08-15 07:33 | XMS RPT_ITS | CCD ---
Author Name Unknown Address [address] [place] [address] Organization [facility] Care Team Providers Care Sericulturist Name Role Phone FABIOLA CHAPMAN Attending Unavailabl e Results Test Name Value Interpretation Reference Range Facil ity Encounters Encounter Date Encounter Type Care Provider Facility Start: 09-29-2017 End: 09-30-2017 Patient encounter procedure FABIOLA CHAPMAN [facility] Summary Purpose Family History No Family History Records Found Advance Directives No Advanced Directives Records Found Additional Source Comments (unrecognized sect ion and content) No Status Records Found INFORMATION SOURCE (unrecogn ized section and content) FOR RECORDS PERTAINING TO PATIENTS WHO ARE OR HAVE BEEN ENROLLED IN A CHEMICAL DEPENDENCY/SUBSTANCEABUSE PROGRAM, SOME INFORMATION MAY BE OMITTED. This clinical summary was aggregated from multiple sources. Caution should be exercised in using it in the provision of clinical care. This summary normalizes information from multiple sources, and as a consequence, information in this document may materially change the coding, format and clinical context of patient data. In addition, data may be omitted in some cases. CLINICAL DECISIONS SHOULD BE BASED ON THE PRIMARY CLINICAL RECORDS. [employer] provides no warranty or guarantee of the accuracy or completeness of information in this document.
[2023-08-15] MEDS: Lactated Ringers 1,000 ML 15 ML IV ×2 (08:23→11:06)
--- NOTE | 2023-08-15 09:49 | PCM.HP.STD ---
HPI - General HPI Narrative COLLEEN HILL, is a 83 M who presents for resection of a bladder neck contracture also a diagnostic cystoscopy to check a bladder. [facility] Medical History (Updated 08/04/23 @ 14:39 by Conrado De Los Santos) Alcohol use Atherosclerotic heart disease of [place] coronary artery without angina pectoris Bladder cancer Cancer Cardiology follow-up encounter Essential hypertension Former smoker High cholesterol History of echocardiogram History of heart attack History of stress test Hyperlipidemia Hypertension Hypothyroidism Pure hypercholesterolemia Thyroid disease Wears glasses Wears partial dentures Home Medications levothyroxine 50 mcg tablet 100 mcg PO MOTUWETHFRSA 02/24/16 [History Last Taken 08/15/23] isosorbide mononitrate 30 mg tablet,extended release 24 hr 30 mg PO DAILY 11/03/16 [History Last Taken 08/15/23] aspirin 81 mg tablet,delayed release 81 mg PO DAILY@0800 06/27/18 [Rx Last Taken 07/17/23] atorvastatin 40 mg tablet 40 mg PO QHS #90 tabs 05/31/19 [Rx Last Taken 08/14/23] acetaminophen 325 mg tablet (Tylenol) 650 mg (2 x 325 mg) PO Q4H PRN PRN Pain 1-10 Or Fever #0 tabs 11/23/21 [Rx Last Taken Unknown] oxybutynin chloride 10 mg tablet,extended release 24 hr 10 mg PO QHS 01/16/23 [History Last Taken 08/14/23] ramipril 10 mg capsule 10 mg PO DAILY #90 caps 05/27/23 [Rx Last Taken 08/15/23] Allergy/AdvReac Type Severity Reaction Status Date / Time No Known Allergies Allergy Verified 08/15/23 08:07 Family History Father CAD (coronary artery disease) Myocardial infarction, Onset Age: 56 Grandmother Heart disease Uncle Heart disease Surgical History (Updated 08/04/23 @ 14:39 by Conrado De Los Santos) History of appendectomy History of cardiac catheterization History of cystoscopy Postsurgical percutaneous transluminal coronary angioplasty (PTCA) status (~09/07/01) Presence of aortocoronary bypass graft (~10/23/00) Presence of stent in coronary artery (~06/26/18) Social History Smoking Status: Former smoker how long ago did patient quit smokin years ago alcohol intake: current alcohol intake frequency: a few times a month Alcohol type: beer details: occasional caffeine: Yes Type: carbonated beverages Number of servings: 2 Vital Signs Vital Signs Vital Signs: 08/15/23 08:23 08/15/23 08:23 Temperature 97.5 F L Temperature Source Temporal Pulse Rate 61 Respiratory Rate 12 Respiratory Pattern Normal Blood Pressure 135/71 H Blood Pressure Mean 92 Blood Pressure Source Monitor Blood Pressure Position Semi-Fowlers Blood Pressure Location Left Arm Pulse Ox 99 Oxygen Delivery Method Room Air Weight Weight: 68.1 kg Body Mass Index (BMI) 21.5 Results Lab / Micro Data 08/05/23 08:11 08/05/23 08:11
[2023-08-15] MEDS: Cefazolin 2 GM in 0.9% Normal Saline (100mL Bag) 100 ML IV (10:11)
--- NOTE | 2023-08-15 10:34 | DCINST_ITS ---
Discharge Instructions Diet Discharge Diet: No restrictions Activity Discharge Activity: Return to Normal Activity and May Not Drive (while taking narcotic pain medications.) Dressing / Incision Call your doctor if you observe: Fever of 101 or Higher Follow Up Care Please Follow Up With: Erasto Murphy MD When: Call [phone] for an appointment Test Results: Test results from this visit will be discussed in further detail at your follow- up appointment, if applicable. Discharge Plan Admission Attending Provider: Erasto Murphy Primary Care Provider: Robson Guzman Discharge Orders/Prescriptions Prescriptions: No Action oxybutynin chloride 10 mg tablet extended release 24hr 10 mg PO QHS Patient Comments: TAKE 1 TABLET BY MOUTHCONCE DAILY levothyroxine 50 MCG tablet 100 mcg PO MOTUWETHFRSA isosorbide mononitrate 30 MG tablet extended release 24 hr 30 mg PO DAILY aspirin 81 MG tablet 81 mg PO DAILY@0800 0RF Hold Instructions: Resume on 03/20/22. acetaminophen [Tylenol] 325 mg Tablet 650 mg PO Q4H PRN PRN (Reason: Pain 1-10 Or Fever) Qty: 0 0RF atorvastatin 40 mg tablet 40 mg PO QHS Qty: 90 3RF ramipril 10 mg capsule 10 mg PO DAILY Qty: 90 3RF Other Ambulatory Orders: 12 Lead EKG (Routine) Timeframe: [id number] Location: None Selected Ordered By: Dr. Jethro Ch Referrals / Follow Up: Robson Guzman MD [Primary Care Provider] - Disposition Disposition (needs filled in before D/C Order can be placed): Home, Self Care
--- NOTE | 2023-08-15 10:38 | PCM.OPRPT ---
Report of Operation Date of Procedure: 08/15/23 Pre-Operative Diagnosis: Bladder neck contracture Post-Operative Diagnosis: The same Surgery/Procedure Performed:: Transurethral resection of bladder neck contracture Description of Surgical Findings:: This is an 83-year-old male had a TURP a few years ago he had more difficulty with voiding on cystoscopy is found to have a bladder neck contracture scarred down bladder neck so today we will do a transurethral section of the bladder neck contracture, was taken back to the operating room and a smooth induction of anesthesia placed in dorsolithotomy position the penis testicles prepped and draped in usual fashion went in the bladder with a 24 [place] noncontinuous flow Olympus bipolar resectoscope I then used a medium loop could not get to the bladder neck so I had to resect backwards cutting the scar tissue open from the mid ureteral mid prostate to the bladder neck after resecting the bladder neck I reviewed and resected all the way around and had a nice wide open channel and then cauterized to obtain hemostasis we then placed the catheter into the bladder all the chips were Ellik out he had a nice wide open channel good flow no strictures along the urethra channel and we placed a 22 [place] catheter we will keep it overnight for irrigation and we will take the cath tomorrow for a voiding trial. Successful transurethral resection of a bladder neck contracture Surgeon: Erasto Murphy Type of Anesthesia: General Drains: 22fr Admit VTE Documentation VTE Present on Admission: No VTE Mechan Device Prophylaxis: SCD's VTE Pharm Prophylaxis ordered?: No
--- OUTSIDE RECORDS SUMMARY | 2023-08-15 13:46 | XMS RPT_ITS | CCD ---
Author Name Unknown Address [address] [place] [address] Organization [facility] Care Team Providers Care Electric Power Superintendent Name Role Phone FABIOLA CHAPMAN Attending Unavailabl e Results Test Name Value Interpretation Reference Range Facil ity Encounters Encounter Date Encounter Type Care Provider Facility Start: 09-29-2017 End: 09-30-2017 Patient encounter procedure FABIOLA CHAPMAN [facility] Summary Purpose Family History No Family History [...] BE BASED ON THE PRIMARY CLINICAL RECORDS. [employer] provides no warranty or guarantee of the accuracy or completeness of information in this document.
[2023-08-15] MEDS: 0.9% Normal Saline (1000mL) 1,000 ML 50 ML IV (15:11)
[2023-08-15] MEDS: Ketorolac 15 MG/ML Vial IV (16:10)
[2023-08-15] MEDS: Acetaminophen 325 MG Tablet 650 MG PO (17:12)
[2023-08-15] MEDS: Ciprofloxacin 400 MG/200 ML BAG 200 MG IV (17:12)
[2023-08-15] MEDS: Tolterodine Tartrate 2 MG CAP.SA PO (21:31)
[2023-08-15] MEDS: Ensure Plus High Protein 120 ML LIQUID PO (21:31)
[2023-08-15] MEDS: Docusate Sodium 100 MG Capsule 200 MG PO (21:31)
[2023-08-15] MEDS: Atorvastatin Calcium 40 MG Tablet PO (21:32)
[2023-08-16 02:30] VITALS: BP 155/79; PULSE 63; RESP 16; TEMP 36.5; O2SAT 98
[2023-08-16 05:46] VITALS: BP 162/78; PULSE 63; RESP 18; TEMP 36.5; O2SAT 98
[2023-08-16] MEDS: Ciprofloxacin 400 MG/200 ML BAG 200 MG IV (05:49)
[2023-08-16] MEDS: Levothyroxine 100 MCG Tablet PO (05:51)
--- NOTE | 2023-08-16 08:50 | PCM.PN.GU ---
Subjective Subjective Status post incision and opening up of bladder neck, we can remove the catheter this morning patient can go home today after voids Objective Data Objective Data Vital Signs: Vital Signs Temp Pulse Resp BP Pulse Ox O2 Del Method O2 Flow Rate 97.7 F L 63 18 162/78 H 98 Room Air 6 08/16/23 05:46 08/16/23 05:46 08/16/23 05:46 08/16/23 05:46 08/16/23 05:46 08/16/23 05:46 08/15/23 10:55 Oxygen Flow Rate (L/min) 6 Oxygen Delivery Method Room Air Weight: 68.1 kg Body Mass Index (BMI) 21.5 Intake & Output: Intake and Output for Last 24 Hours 08/14/23 08/15/23 08/16/23 23:59 23:59 23:59 Intake Total 1829.25 / 1829.25 1033.33 / 1033.33 Output Total 1100 / 1100 Balance 729.25 / 729.25 1033.33 / 1033.33 Lab / Micro Data 08/05/23 08:11 08/05/23 08:11
[2023-08-16 09:00] VITALS: BP 172/82; PULSE 70; RESP 13; TEMP 36.6; O2SAT 100
[2023-08-16] MEDS: Ramipril 10 MG Capsule PO (09:14)
[2023-08-16] MEDS: Docusate Sodium 100 MG Capsule 200 MG PO (09:14)
[2023-08-16] MEDS: Isosorbide Mononitrate 30 MG Tablet PO (09:14)
== END 2023-08-16 11:04 | disposition home or self-care (01) ==
LOC: SDC 13:31 → MS3 13:31
PROVIDERS: Anesthesiology; Admitting Provider Urology; PCP Family Medicine; Referring Provider Urology; Visit Provider Urology
PROC: 0TBB8ZZ Excision of Bladder, Via Natural or Artificial Opening Endoscopic (ICD-10-PCS; CPT 52640; principal; 2023-08-15 10:00)
DX: N32.89 Other specified disorders of bladder (principal); I25.10 Atherosclerotic heart disease of native coronary artery without angina pectoris; I10 Essential (primary) hypertension; E78.00 Pure hypercholesterolemia, unspecified; E03.9 Hypothyroidism, unspecified; Z87.891 Personal history of nicotine dependence; Z79.899 Other long term (current) drug therapy; Z79.82 Long term (current) use of aspirin; Z79.890 Hormone replacement therapy; Z85.51 Personal history of malignant neoplasm of bladder
CPT/HCPCS: 52640; 36415; 80048; 84443; 85025; 88307; 93005; 96365; 96366; 96375; 99221; J7030; J7120; G0378; J0744; J2405

== ENCOUNTER → 2023-09-15 | Outpatient (CLI) | payer MEDICARE, SELFPAY ==
[2023-09-15 10:22] LABS: Hematocrit 40.4 % (40-54); Hemoglobin 13.8 g/dL (13.0-16.5); Mean Corp Hgb Conc 34.2 g/dL (32-36); Mean Corpuscular Hgb 30.9 pg (27.0-32.0); Mean Corpuscular Volume 90.4 fL (80-94); Mean Platelet Vol. 8.3 fl (6.2-12.0); Platelet Count 201 K/mm3 (150-450); RBC Distribution Width CV 13.2 % (11.6-14.6); RBC Distribution Width SD 43.2 fl (35.1-43.9); Red Blood Count 4.47 M/mm3 (4.6-6.2); White Blood Count 7.6 K/mm3 (4.4-11.0)
[2023-09-15 11:02] LABS: ALB/GLOB Ratio 1.3 RATIO (0.9-2.4); AST(SGOT) 18 U/L (15-37); Alanine Aminotransfer ALT/SGPT 36 U/L (16-61); Albumin, Serum 3.9 g/dL (3.2-5.0); Alkaline Phosphatase 94 U/L (45-117); Anion Gap 3 (5-15); BUN 18 mg/dL (7-18); BUN/Creat Ratio 14.3 RATIO (10-20); Calcium,Total 9.2 mg/dL (8.5-10.1); Chloride 110 mmol/L (98-107); Creatinine, Serum 1.26 mg/dL (0.70-1.30); EST Glomerular Filtration Rate 58 mL/min (>60); Est Glom Filt Rate - Afr Amer 70 mL/min (>60); Globulin 3.1 g/dL (2.2-4.2); Glucose 98 mg/dL (74-106); Potassium 4.1 mmol/L (3.5-5.1); Sodium Level 139 mmol/L (136-145); Thyroid Stim Hormone (TSH) 2.03 uIU/mL (0.358-3.74); Troponin-I HS 48 pg/mL (3.0-78.0)
== END | disposition home or self-care (01) ==
PROVIDERS: PCP Family Medicine; Referring Provider Family Medicine; Visit Provider Family Medicine
DX: R42 Dizziness and giddiness (principal)
CPT/HCPCS: 36415; 80053; 83735; 84443; 84484; 85027

== ENCOUNTER → 2023-09-25 | Outpatient (CLI) | payer MEDICARE, SELFPAY ==
--- NOTE | 2023-09-25 06:41 | EKG12_ITS ---
Test Reason : DIZZY SPELLS Blood Pressure : / mmHG Vent. Rate : 062 BPM Atrial Rate : 062 BPM P-R Int : 166 ms QRS Dur : 114 ms QT Int : 432 ms P-R-T Axes : 018 -54 030 degrees QTc Int : 438 ms Normal sinus rhythm Right bundle branch block Left anterior fascicular block Bifascicular block Abnormal ECG Confirmed by SHRUTI TRIVEDI, CHERELLE ([id number]), social media editor RICHARD EDDY ([id number]) on 09/29/2023 6:48:37 AM Referred By: Robson Guzman Confirmed By:MARK BAHENA MD
--- OUTSIDE RECORDS SUMMARY | 2023-09-25 06:50 | XMS RPT_ITS | CCD ---
Author Name Unknown Address [address] [place] [id number] Organization [facility] Care Team Providers Care Low Pressure Boiler Tender Name Role Phone FABIOLA CHAPMAN Attending Unavailabl e Results Test Name Value Interpretation Reference Range Facil ity Encounters Encounter Date Encounter Type Care Provider Facility Start: 09-29-2017 End: 09-30-2017 Patient encounter procedure FABIOLA CHAPMAN [facility] Summary Purpose Family History No Family History [...] BE BASED ON THE PRIMARY CLINICAL RECORDS. [employer] provides no warranty or guarantee of the accuracy or completeness of information in this document.
== END | disposition home or self-care (01) ==
LOC: PSN 06:41
PROVIDERS: PCP Family Medicine; Referring Provider Family Medicine; Visit Provider Family Medicine
DX: R42 Dizziness and giddiness (principal); R06.09 Other forms of dyspnea
CPT/HCPCS: 93005

== ENCOUNTER → 2023-10-14 | Outpatient (CLI) | payer MEDICARE, SELFPAY ==
--- NOTE | 2023-10-14 12:07 | STRESSREP_ITS ---
Stress Test Report Exercise myocardial perfusion stress test. 83-year-old man with a history of dyspnea on exertion and previous history of syncope status post coronary bypass surgery Stress protocol: Resting EKG demonstrates sinus rhythm with a rate of 56 bpm, and a right bundle branch block, resting blood pressure is 142/80 mmHg. The patient exercised acco rding to the regular Nicho protocol for a total duration of 3 minutes attaining a maximum heart rate of 144 bpm which was 104% of maximum predicted heart rate; the maximum workload was 4.6 metabolic equivalents. At rest there were no ST or T wave changes noted to suggest ischemia and at peak exercise upsloping ST changes only were noted which did not meet the criteria for ischemia. No clinical angina was noted the test was terminated due to the target heart rate being achieved/fatigue. The peak blood pressure was 178/60 mmHg. Rate-pressure product was 22,000. Myocardial perfusion protocol. 11.8 mCi of technetium 99m sestamibi was injected at rest. The patient exercised according to regular Nicho protocol for total duration of 30 minutes and at peak exercise 33.5 mCi of technetium 99m sestamibi was injected stress images were obtained stress and rest images were reconstructed in comparing the short axis vertical long and horizontal long axis. Gated images were also obtained. Perfusion SPECT analysis: Review of the stress images demonstrate normal uptake of tracer noted in all areas of the myocardium. There is a small portion of the anterior septal wall with mildly reduced perfusion. The resting images similarly demonstrate normal uptake of tracer noted in all areas of the myocardium with mild improvement in the anteroseptal region suggestive of a mild amount of anterior septal ischemia.. Gated SPECT analysis: The gated ejection fraction is 61%. Conclusion: Mildly abnormal exercise myocardial perfusion stress test at a low workload Preserved ejection fraction. Mild anteroseptal ischemia cannot be completely excluded
== END | disposition home or self-care (01) ==
PROVIDERS: PCP Family Medicine; Referring Provider Family Medicine; Visit Provider Family Medicine
DX: R42 Dizziness and giddiness (principal); R06.09 Other forms of dyspnea
CPT/HCPCS: 78452; 93017; A9500; A4216

== ENCOUNTER → 2023-12-03 | Outpatient (CLI) | payer MEDICARE, SELFPAY ==
[2023-12-03 13:17] LABS: Bacteria 0 SEEN /hpf (None Seen); Mucous, Urine 0 SEEN /hpf (<or=2+)
[2023-12-03 13:47] LABS: Color, Urine Yellow (Yellow); Glucose, Dipstick Normal (Normal); Ketone-Dipstick Negative (Negative); Leukocyte Esterase-Dipstick 100 /ul (Negative); Nitrite-Dipstick Negative (Negative); Occult Blood-Urine 250 /ul (Negative); Protein-Dipstick 30 mg/dl (Negative); Specific Gravity, Urine 1.015 (1.002-1.030); Urine Bilirubin Dipstick Negative (Negative); Urine Clarity Clear (Clear); Urine Urobilinogen Normal (Normal)
[2023-12-03 13:54] LABS: Red Blood Cells-Urine 25-50 SEEN /hpf (0-5); Squamous Epithelial Cells - UA 0-5 SEEN /hpf (0-5); White Blood Cells 10-25 SEEN /hpf (0-5)
== END | disposition home or self-care (01) ==
LOC: LABSPEC 12:28
PROVIDERS: PCP Family Medicine; Referring Provider Family Medicine; Visit Provider Family Medicine
DX: R31.9 Hematuria, unspecified (principal)
CPT/HCPCS: 81001; 87086

== ENCOUNTER → 2023-12-18 | Outpatient (CLI) | payer MEDICARE, SELFPAY ==
[2023-12-18 13:12] LABS: Absolute Lymphocyte Count 1.52 X10^3/uL (0.83-4.51); Absolute Neutrophil Count 3.7 X10^3/uL (2.0-7.7); Basophil# 0.06 X10^3/uL; Eosinophil# 0.25 X10^3/uL; Hemoglobin 12.7 g/dL (13.0-16.5); Lymphocyte # 1.52 X10^3/ul (0.83-4.51); Lymphocyte % 24.6 % (19-41); Mean Corp Hgb Conc 34.3 g/dL (32-36); Mean Corpuscular Hgb 31.6 pg (27.0-32.0); Mean Platelet Vol. 9.2 fl (6.2-12.0); Monocyte# 0.64 X10^3/uL; Monocyte% 10.4 % (0-10); NRBC Flagged by Analyzer 0 % (0-5); Neutrophil # 3.69 X10^3/uL (2.7-7.7); Neutrophil % 59.7 % (47-70); Platelet Count 179 K/mm3 (150-450); RBC Distribution Width CV 12.7 % (11.6-14.6); RBC Distribution Width SD 41.7 fl (35.1-43.9); Red Blood Count 4.02 M/mm3 (4.6-6.2); White Blood Count 6.2 K/mm3 (4.4-11.0)
[2023-12-18 14:04] LABS: Anion Gap 4 (5-15); BUN 26 mg/dL (7-18); BUN/Creat Ratio 19.4 RATIO (10-20); Calcium,Total 9.2 mg/dL (8.5-10.1); Chloride 110 mmol/L (98-107); Creatinine, Serum 1.34 mg/dL (0.70-1.30); EST Glomerular Filtration Rate 54 mL/min (>60); Est Glom Filt Rate - Afr Amer 66 mL/min (>60); Glucose 108 mg/dL (74-106); Potassium 4.1 mmol/L (3.5-5.1); Sodium Level 138 mmol/L (136-145)
[2023-12-18 14:05] LABS: BNP,B-Type NATRIURETIC PEPTIDE 55.2 pg/mL (0-100)
== END | disposition home or self-care (01) ==
LOC: LAB 12:22
PROVIDERS: PCP Family Medicine; Referring Provider Nurse Practitioner Family; Visit Provider Nurse Practitioner Family
DX: R06.09 Other forms of dyspnea (principal); Z95.1 Presence of aortocoronary bypass graft; Z95.5 Presence of coronary angioplasty implant and graft; Z79.1 Long term (current) use of non-steroidal anti-inflammatories (NSAID)
CPT/HCPCS: 36415; 80048; 83880; 85025

== ENCOUNTER → 2024-01-02 | Outpatient (CLI) | payer MEDICARE, SELFPAY ==
--- NOTE | 2024-01-02 09:27 | RAD_ITS ---
STUDY: X-RAY CHEST REASON FOR EXAM: Male, 83 years old. pre-operative TECHNIQUE: PA and lateral views of the chest. COMPARISON: April 28, 2023 FINDINGS: The lungs are clear and expanded. There is no demonstrated pleural abnormality. Normal heart size. No consolidation or pulmonary edema is present. Sternal cerclage wires are present from a prior sternotomy. Normal mediastinum and francia. Normal visualized pulmonary arteries. Normal visualized aortic arch and descending thoracic aorta. Normal visualized thoracic spine. Normal visualized ribs, clavicles, and shoulders. There is no demonstrated abnormality of the visualized soft tissue structures of the upper abdomen. RAD/Chest PA and Lateral IMPRESSION: No acute process Electronically Signed: Enrique Tabares MD at 14:36 EDT ,
== END | disposition home or self-care (01) ==
PROVIDERS: PCP Family Medicine; Referring Provider Nurse Practitioner Family; Visit Provider Nurse Practitioner Family
DX: Z01.818 Encounter for other preprocedural examination (principal); Z95.5 Presence of coronary angioplasty implant and graft; R06.09 Other forms of dyspnea
CPT/HCPCS: 71046

== ENCOUNTER 2024-01-12 06:20 | Day surgery (SDC) | payer MEDICARE, SELFPAY ==
[2024-01-09 08:04] VITALS: BMI 19.9
--- NOTE | 2024-01-12 09:12 | CL.D_ITS ---
Patient Name: COLLEEN HILL Study Date: 01/12/2024 Performing: Allen Nelson MD Ht: 70 inches 177.8 cm : 1940 Wt: 139 lbs 63.05 kg Age: 83 Gender: male BSA: 1.79 PROCEDURE(S) PERFORMED DC03-([id number])LHC/COR/LV/CABG CLINICAL PROFILE AND INDICATIONS Indications: Suspected CAD Heart Failure: None Stress/Imaging Date: 10/12/23Stress Test with SPECT MPI: Positive Low Risk CONCLUSIONS Coronary bypass surgery with a SLOAN to the LAD which is patent and 2 saphenous vein grafts to the diagonal and right coronary artery previously noted to be occluded. Collateralization from the circumflex artery to the right coronary artery distribution is noted. RECOMMENDATIONS Medical therapy DESCRIPTION OF PROCEDURE The patient arrived to the procedure lab. The risks and benefits of the procedure as well as a full description of our services here and current unavailability of surgical backup were fully explained to the patient and/or their significant other prior to the catheterization. The Timeout was completed, verifying the correct patient and procedure. The patient's procedural site was prepped and draped in the usual fashion. Local anesthetic was given subcutaneously to left radial region with Lidocaine 2%. Using a modified Seldinger technique, arterial access was obtained via the left radial artery, a 6Fr sheath was inserted. Left internal mammary artery graft to the LAD selective angiography was performed in multiple views using a 5 Fr. IM catheter. Left Coronary Artery selective angiography was performed in multiple views using a 5 Fr. JL4 catheter. Right Coronary Artery selective angiography was then performed in multiple views using a 5 Fr. 3DRC (Jason) catheter. Left Ventriculography was performed in CLARK projection using a 5 Fr. Pigtail catheter. LV to AO pullback pressures were then recorded.The arterial sheath was pulled and a TR Band was applied for hemostasis CORONARY ANGIOGRAPHY DOMINANCE: Right Dominant LEFT HEART ASSESSMENT Left Ventricular Ejection Fraction: by LV Gram 65 % Normal LV wall motion Normal Left Ventricular systolic function LEFT MAIN: Angiographically normal LEFT ANTERIOR DESCENDING ARTERY: Medium size vessel which is totally occluded after the first septal payloader machine operator and diagonal vessel. CIRCUMFLEX ARTERY: Medium size vessel with 2 obtuse marginal branches which are noted to be patent and AV groove branch and the obtuse marginal branch which collateralizes with the distal right coronary artery. RIGHT CORONARY ARTERY: is occluded GRAFTS: Saphenous Vein graft to the 1st Diagonal is totally occluded Saphenous Vein graft to the RCA is totally occluded SLOAN graft to the Mid LAD is patent COLLATERAL FLOW: Collateral flow from Left to Right COMPLICATIONS No Complications PROCEDURE MEDICATIONS Fentanyl 50 mcg IV Versed 1 mg IV Versed 1 mg IV Oxygen: 2 L/min via nasal cannula Heparin given IA 01/12/2024 08:33:31 Verapamil 2.5mg, Ntg 100mcgs, 3000 units of Heparin given IA 01/12/2024 08:33:31 SUMMARY OF HEMODYNAMIC DATA Time AIR REST ECG 07:06:32 Art 169/66 (102) 08:43:27 AO 160/65 (103) SA 08:44:46 LV 129/12, 24 08:58:28 LV 145/13, 24 08:58:37 LV 141/12, 27 08:59:18 LV 150/10, 27 08:59:27 LVp 155/8, 28 08:59:30 AOp 159/14 (103) 08:59:37 Signed By Allen Nelson MD On 01/12/2024 09:11:38 Allen Nelson MD
== END 2024-01-12 10:45 | disposition home or self-care (01) ==
PROVIDERS: PCP Family Medicine; Referring Provider Internal Medicine Cardiovascular Disease; Visit Provider Internal Medicine Cardiovascular Disease
DX: I25.10 Atherosclerotic heart disease of native coronary artery without angina pectoris (principal); I25.82 Chronic total occlusion of coronary artery; E78.00 Pure hypercholesterolemia, unspecified; I10 Essential (primary) hypertension; E03.9 Hypothyroidism, unspecified; Z79.890 Hormone replacement therapy; Z79.899 Other long term (current) drug therapy; Z79.82 Long term (current) use of aspirin; Z95.5 Presence of coronary angioplasty implant and graft; Z87.891 Personal history of nicotine dependence; Z95.1 Presence of aortocoronary bypass graft; T82.898A Other specified complication of vascular prosthetic devices, implants and grafts, initial encounter; Y71.8 Miscellaneous cardiovascular devices associated with adverse incidents, not elsewhere classified
CPT/HCPCS: 93459; 99152; 99153; J7040; Q9967; C1769; C1894

== ENCOUNTER 2024-02-18 07:28 | Observation (INO) | payer MEDICARE, SELFPAY ==
[2024-02-14 10:49] LABS: Thyroid Stim Hormone (TSH) 2.68 uIU/mL (0.358-3.74)
[2024-02-18] VITALS (13 sets, daily range): BP systolic 106–156; BP diastolic 47–72; PULSE 63–85; RESP 16–20; TEMP 36.4–37.7; O2SAT 93–100; BMI 19.5
--- NOTE | 2024-02-18 | IMM_PTH ---
PATIENT: COLLEEN HILL LOC: MS3 U#:[id number] AGE/SX: 83/M ROOM: CT316 RE02/18/[address]: Dr. Erasto Murphy MD : 1940 BED: 1 DIS: 02/19/2024 SPEC #: [id number] RECD: 02/20/24 13:16 STATUS: VESTA REZain #: [id number] KALEE: 02/18/24 00:[address]: Erasto Murphy DEPT: IMMUNOHISTOCHEMISTRY RECD BY: Josemanuel Howard ENTERED: 02/20/24 13:17 SP TYPE: IMMUNO OTHR DR: Dr. 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 Localization is made via biotin free immunoperoxidase method. Appropriate controls are performed and reacted as expected. Results on target cell population are indicated in the following table: RESULTS: ANTIBODY / CLONE RESULT Block 1 GATA3 (L50-823) negative AE1-3 (AE1/AE3/PCK26) positive CK7 (OV-TL12/30) negative CK8 (69ciilF50) positive CK20 (KS20.8) negative CDX2 (ZWI8859V) negative 34BE12 (34BE12) positive, focal CD31 (MATT/70A) negative Factor VIII (R Ag) negative Chromo (LK2H10) negative Synapto (polyclonal) negative PSAP (PASE/4LJ) negative CK5-6 (D5 & 1684) negative P40 (BC28) negative P53 (DO-7) negative, null pattern Ki-67 (30-9) positive, 65% These tests were developed and their performance characteristics determined by [facility]. They may not have been cleared or approved by the U.S. Food and Drug Administration. The FDA has determined that such clearance or approval is not necessary. The above immunohistochemical/dualISH markers are ordered and reviewed by the Pathologist. INTERPRETATION: Bladder neck contracture and prostate tissue, prostatectomy: Poorly differentiated carcinoma. COMMENT: The above study is not elucidate a specific primary. Clinical correlation is suggested. JAM/ 02/23/2024
[2024-02-18] MEDS: Lactated Ringers 1,000 ML 15 ML IV (06:42)
--- NOTE | 2024-02-18 07:10 | PCM.PRE.AN2 ---
ASA Classification* ASA Classification ASA Classification: 3 Assessment & Plan Anesthesia* Anesthesia Assessment Anesthesia Assessment: Discussed sedation and/or anesthesia options, risks, benefits, and alternatives with patient/parents/legal guardian/POA. Questions invited. The patient/parents/legal guardian/POA seems to understand and agrees to proceed with anesthesia plan. Reviewed the physical assessment, medical history, allergy history and patient home medications list prior to surgery/procedure/anesthetic and documented any changes. Performed airway and anesthesia risk assessments. Anesthesia Type Anesthesia Type: General Anesthesia Focused Assessment* Temperature: 98.5 F Pulse Rate: 64 Blood Pressure: 106/56 Respiratory Rate: 16 Pulse Ox: 98 Airway Assessment Mouth opens: >3 cm Mallampati Score: II Focused Labs Anesthesia Preop lab: CBC WBC 6.2 K/mm3 (4.4-11.0) 12/18/23 12:30 RBC 4.02 M/mm3 (4.6-6.2) L 12/18/23 12:30 Hgb 12.7 g/dL (13.0-16.5) L 12/18/23 12:30 Hct 37.0 % (40-54) L 12/18/23 12:30 Plt Count 179 K/mm3 (150-450) 12/18/23 12:30 CHEMISTRY Potassium 4.1 mmol/L (3.5-5.1) 12/18/23 12:30 Sodium 138 mmol/L (136-145) 12/18/23 12:30 Magnesium 2.0 mg/dL (1.6-2.6) 09/15/23 09:53 BUN 26 mg/dL (7-18) H 12/18/23 12:30 Creatinine 1.34 mg/dL (0.70-1.30) H 12/18/23 12:30 Glucose 108 mg/dL (74-106) H 12/18/23 12:30 TSH 2.68 uIU/mL (0.358-3.74) 02/14/24 10:07 COAG PT 13.8 SECONDS (11.7-14.9) 06/26/18 09:30 Pre-Assessment Diagnosis/Proposed Procedure Planned Operative Procedure(s): ROBOTIC RESECTION OF BLADDER NECK CONTRACTURE Anesthesia History Anesthesia History - demonstrator sewing techniques: Anesthesia History - demonstrator sewing techniques Hx Hospitalization No 02/13/24 13:17 Any Problems With Anesthesia No 02/13/24 13:17 Cholinesterase deficiency No 02/13/24 13:17 You/Your Family Experience No 02/13/24 13:17 fever (hyperthermia) with Relationship Recent Exposure to Contagious No 02/18/24 06:25 Disease Does patient have nerve No 02/13/24 13:17 stimulator Patient instructed to have device shut off --Does patient have Pacemaker No 02/18/24 06:25 or ICD? When Was Last Pacemaker Check QUESTION #4 FULL TEXT: You/Your Family Experience fever (hyperthermia) with Anesthesia Last Oral Intake Last Oral intake: Last Oral Intake NPO since 23:00 02/18/24 06:25 Meds taken in AM with sips of Yes 02/18/24 06:25 water? Meds patient instructed to see med list 02/18/24 06:25 take am of surgery PONV PONV - demonstrator sewing techniques: PONV - demonstrator sewing techniques Female No 02/13/24 13:17 HX of Motion Sickness No 02/13/24 13:17 HX of N/V After Surgery No 02/13/24 13:17 Non-Smoker Yes 02/13/24 13:17 Duration of Surgery greater Yes 02/13/24 13:17 than 60 minutes Number of Risk Factors 2 02/13/24 13:17 PONV Score Moderate Risk 02/13/24 13:17 Height & Weight Height & Weight: Anesthesia: Height & Weight Height 5 ft 10 in 02/18/24 06:25 Weight: 62 kg 02/18/24 06:25 Body Mass Index (BMI) 19.5 02/18/24 06:25 Respiratory Assessment Respiratory Assessment - demonstrator sewing techniques: Respiratory Tract Infection Hx - demonstrator sewing techniques Hx Respiratory Tract Infection No 02/13/24 13:17 STOP Sleep Apnea STOP Sleep Apnea - demonstrator sewing techniques: STOP Sleep Apnea - demonstrator sewing techniques Hx Hypertension Yes: CONTROLLED WITH MED 02/13/24 13:17 Hx Sleep Apnea No 02/13/24 13:17 CPAP No 02/13/24 13:17 BIPAP Do you snore loudly (louder No 02/13/24 13:17 than talking or can be heard Do you often feel tired/ Yes 02/13/24 13:17 fatigued/ sleepy during daytime? Has anyone observed you stop No 02/13/24 13:17 breathing during sleep? STOP Results Positive 02/13/24 13:17 QUESTION #5 FULL TEXT : Do you snore loudly (louder than talking or can be heard through closed doors)? Tobacco Use History Tobacco Use History - demonstrator sewing techniques: Tobacco Use History - demonstrator sewing techniques Tobacco Use Smoking Status Former smoker 02/13/24 13:17 Hx Tobacco Use No 02/13/24 13:17 Years Smoking Packs Smoked per Day Smoking Cessation Date was No - quit smoking greater 02/13/24 13:17 within the last 15 years than 15 years ago Hx Smoking Cessation Date 07/28/64 02/13/24 13:17 Hx Smoking Cessation No 02/13/24 13:17 Counseling Hematologic Medial History Hematologic Hx - demonstrator sewing techniques: Hematologic Medical Hx - clinical documentation consultant Hx of Blood Transfusion No 02/13/24 13:17 Hx of Transfusion in last 3 No 02/13/24 13:17 Months Date of Last Transfusion (if within last 3 months) Ever experience any problems No 02/13/24 13:17 with transfusion(s)? Specify any problems Hx of Preganancy in last 3 N/A 02/13/24 13:17 Months Nurse Filling Out Transfusion DSCHRIBER 02/13/24 13:17 & Questions: Date: 02/13/24 02/13/24 13:17 Time: 13:19 02/13/24 13:17 Patient unable to answer at this time (ie. confused, unrespo /Reproduction History /Reproductive History - demonstrator sewing techniques: /Reproductive Hx- demonstrator sewing techniques Hx Now No 02/13/24 13:17 Gestational Age (in weeks): EDC: Hx Hx Para Hx Section SAB No 02/13/24 13:17 Active Medications Active Medications: Current Medications Generic Name Dose Route Start Last Admin Trade Name Freq PRN Reason Stop Dose Admin Cefazolin Sodium 2 gm/ Sodium 110 mls @ 150 mls/hr 02/18/24 07:30 Chloride IV 02/18/24 08:13 PREOP ONE Lactated Ringer's 1,000 mls @ 15 mls/hr 02/18/24 06:00 02/18/24 06:42 IV 15 mls/hr .Q48H JAY Administration PFSH Medical History Wears glasses Wears partial dentures Alcohol use Thyroid disease High cholesterol Former smoker History of echocardiogram History of stress test Cardiology follow-up encounter History of heart attack Pure hypercholesterolemia Essential hypertension Bladder cancer Hyperlipidemia Hypertension Atherosclerotic heart disease of [place] coronary artery without angina pectoris Home Medications ?Medication ?Instructions ?Recorded ?Last Taken ?Type levothyroxine 50 mcg tablet 100 mcg PO MOTUWETHFRSA 02/24/16 01/12/24 History aspirin 81 mg tablet,delayed 81 mg PO DAILY@0800 06/27/18 02/02/24 Rx release atorvastatin 40 mg tablet 40 mg PO QHS #90 tabs 05/31/19 08/14/23 Rx acetaminophen 325 mg tablet 650 mg (2 x 325 mg) PO Q4H PRN PRN 11/23/21 Unknown Rx (Tylenol) Pain 1-10 Or Fever #0 tabs nitroglycerin 0.4 mg sublingual 0.4 mg sublingual Q5-15M 12/18/23 Unknown History tablet ramipril 5 mg capsule 5 mg PO QDAY 12/18/23 01/12/24 History Allergy/AdvReac Type Severity Reaction Status Date / Time No Known Allergies Allergy Verified 02/13/24 13:15 Family History Father CAD (coronary artery disease) Myocardial infarction, Onset Age: 56 Grandmother Heart disease Uncle Heart disease Surgical History Hx of right cataract extraction Hx of left cataract extraction History of esophagogastroduodenoscopy (EGD) Hx of bladder repair surgery History of cardiac catheterization History of appendectomy History of cystoscopy Postsurgical percutaneous transluminal coronary angioplasty (PTCA) status (~09/07/01) Presence of stent in coronary artery (~06/26/18) Presence of aortocoronary bypass graft (~10/23/00) Social History Smoking Status: Former smoker how long ago did patient quit smokin years ago alcohol intake: current alcohol intake frequency: a few times a month Alcohol type: beer details: occasional caffeine: Yes Type: carbonated beverages Number of servings: 2 Review of Systems (Anesthesia) ROS Narrative System reviewed and no additional complaints, except as documented.
--- NOTE | 2024-02-18 07:29 | HP.PCM_ITS ---
HPI - General General Date of Service: 02/18/24 Chief Complaint: BPH with obstruction bladder neck contracture HPI Narrative COLLEEN HILL, is a 83 M who presents for a robotic simple prostatectomy and resection of bladder neck contracture PFS Medical History Wears glasses Wears partial dentures Alcohol use Thyroid disease High cholesterol Former smoker History of echocardiogram History of stress test Cardiology follow-up encounter History of heart attack Pure hypercholesterolemia Essential hypertension Bladder cancer Hyperlipidemia Hypertension Atherosclerotic heart disease of [place] coronary artery without angina pectoris Home Medications ?Medication ?Instructions ?Recorded ?Last Taken ?Type levothyroxine 50 mcg tablet 100 mcg PO MOTUWETHFRSA 02/24/16 01/12/24 History atorvastatin 40 mg tablet 40 mg PO QHS #90 tabs 05/31/19 08/14/23 Rx acetaminophen 325 mg tablet 650 mg (2 x 325 mg) PO Q4H PRN PRN 11/23/21 Unknown Rx (Tylenol) Pain 1-10 Or Fever #0 tabs nitroglycerin 0.4 mg sublingual 0.4 mg sublingual Q5-15M 12/18/23 Unknown History tablet ramipril 5 mg capsule 5 mg PO QDAY 12/18/23 01/12/24 History ciprofloxacin HCl 500 mg tablet 500 mg PO BID #10 tabs 02/18/24 Unknown Rx (Cipro) docusate sodium 100 mg capsule 100 mg PO BID #20 caps 02/18/24 Unknown Rx (Colace) oxycodone 10 mg tablet 10 mg PO Q6H PRN pain 7 days #10 02/18/24 Unknown Rx tabs Allergy/AdvReac Type Severity Reaction Status Date / Time No Known Allergies Allergy Verified 02/13/24 13:15 Family History Father CAD (coronary artery disease) Myocardial infarction, Onset Age: 56 Grandmother Heart disease Uncle Heart disease Surgical History Hx of right cataract extraction Hx of left cataract extraction History of esophagogastroduodenoscopy (EGD) Hx of bladder repair surgery History of cardiac catheterization History of appendectomy History of cystoscopy Postsurgical percutaneous transluminal coronary angioplasty (PTCA) status (~09/07/01) Presence of stent in coronary artery (~06/26/18) Presence of aortocoronary bypass graft (~10/23/00) Social History Smoking Status: Former smoker how long ago did patient quit smokin years ago alcohol intake: current alcohol intake frequency: a few times a month Alcohol type: beer details: occasional caffeine: Yes Type: carbonated beverages Number of servings: 2 Vital Signs Vital Signs Vital Signs: 02/18/24 06:25 02/18/24 06:25 02/18/24 07:11 Temperature 98.5 F 98.5 F Temperature Source Temporal Pulse Rate 64 64 Respiratory Rate 16 16 Respiratory Pattern Normal Blood Pressure 106/56 L 106/56 L Blood Pressure Mean 72 Blood Pressure Source Monitor Blood Pressure Position Semi-Fowlers Blood Pressure Location Right Arm Pulse Ox 98 98 Oxygen Delivery Method Room Air Weight Weight: 62 kg Body Mass Index (BMI) 19.5
--- NOTE | 2024-02-18 07:30 | DCINST_ITS ---
Discharge Instructions Diet Discharge Diet: Light diet - advance as tolerated and Soft diet Activity Discharge Activity: May Not Drive May shower in (days): 1 Dressing / Incision Suture Line Care: Avoid Pulling/Pushing and Avoid Pinching/Bending Catheter: Donaldson to leg bag and Donaldson to large bag Drain: [place] Follow Up Care Please Follow Up With: Erasto Murphy MD When: 10 days to remove donaldson Test Results: Test results from this visit will be discussed in further detail at your follow- up appointment, if applicable. Discharge Plan Admission Primary Reason for Your Visit: simple robotic prostatectomy and resection of bladder neck contracture Attending Provider: Erasto Murphy Primary Care Provider: Tl Guzman Instructions Print Language: [place] Discharge Orders/Prescriptions Prescriptions: New ciprofloxacin HCl [Cipro] 500 mg tablet 500 mg PO BID Qty: 10 0RF oxycodone 10 mg tablet 10 mg PO Q6H PRN (Reason: pain) 7 Days Qty: 10 0RF docusate sodium [Colace] 100 mg capsule 100 mg PO BID Qty: 20 0RF Continued ramipril 5 mg capsule 5 mg PO QDAY nitroglycerin 0.4 mg tablet, sublingual 0.4 mg sublingual Q5-15M levothyroxine 50 MCG tablet 100 mcg PO MOTUWETHFRSA acetaminophen [Tylenol] 325 mg Tablet 650 mg PO Q4H PRN PRN (Reason: Pain 1-10 Or Fever) Qty: 0 0RF atorvastatin 40 mg tablet 40 mg PO QHS Qty: 90 3RF Discontinued aspirin 81 MG tablet 81 mg PO DAILY@0800 0RF Referrals / Follow Up: Tl Guzman MD [Primary Care Provider] - Erasto Murphy MD [Med Staff - Active Staff] - Disposition Disposition (needs filled in before D/C Order can be placed): Home, Self Care
--- NOTE | 2024-02-18 07:30 | PROS_PTH ---
PATIENT: COLLEEN HILL LOC: MS3 U#:[id number] AGE/SX: 83/M ROOM: ID316 RE02/18/[address]: Dr. Erasto Murphy MD : 1940 BED: 1 DIS: 02/19/2024 SPEC #: [id number] RECD: 02/18/24 13:40 STATUS: VESTA LANGSTON #: [id number] KALEE: 02/18/24 07:[address]: Erasto Murphy DEPT: SURGICAL PATHOLOGY RECD BY: Raúl Pedro ENTERED: 02/19/24 08:09 SP TYPE: TURP OTHR DR: Dr. Tl Guzman MD Tissues: Prostate, NOS Procedures: Surgery Specimen Level IV HEADER OPERATION: Robotic resection bladder neck contracture, simple prostatectomy PRE-OP DIAGNOSIS: BPH with obstruction bladder neck contracture TISSUE SUBMITTED: Bladder neck contracture and prostate tissue MICROSCOPIC DIAGNOSIS Bladder neck and prostate tissue, simple prostatectomy: Adenocarcinoma. See comment. /mr 02/20/2024 COMMENT Immunohistochemistry ([id number]) supports the above diagnosis but does not elucidate a definitive primary. Clinical correlation is suggested. Case has been reviewed in consultation with Dr. Negron who concurs with the above diagnosis. IDC:[id number] MICROSCOPIC DESCRIPTION Slides are reviewed. GROSS DESCRIPTION Received in fixative is one container labeled with the patient's name and designated Bladder neck contracture and prostate tissue. The specimen consists of multiple fragments of clark-brown soft tissue with a few blood clots measuring in aggregate 2.8 x 2.5 x 1.0cm. Largest piece is serially sectioned. The entire specimen is submitted in three cassettes. TAHMINA/ 02/19/2024 TC:0 CPT:01862
[2024-02-18] MEDS: Cefazolin 2 GM in 0.9% Normal Saline (100mL Bag) 100 ML IV (07:45)
[2024-02-18] MEDS: 0.9% Normal Saline (1000mL) 1,000 ML 50 ML IV (08:45)
--- NOTE | 2024-02-18 08:52 | SUR.PHASEI ---
AFTER REVIEWING BUN/CR 22/08., NOTIFIED DR ADLER WHO CHANGED TORADOL FROM 30 MG TO 15 MG.
[2024-02-18] MEDS: Bupivacaine Mpf 0.5% 30 ML VIAL (09:18)
--- NOTE | 2024-02-18 09:24 | OP.PCM_ITS ---
Report of Operation Date of Procedure: 02/18/24 Pre-Operative Diagnosis: BPH with obstruction, bladder neck contracture Post-Operative Diagnosis: The same Surgery/Procedure Performed:: Laparoscopic robotic assisted simple prostatectomy and excision of bladder neck contracture with revision of bladder neck Description of Surgical Findings:: Indication this is an 83-year-old male he is got a history of BPH with obstruction had a TURP several years ago this had scarred down to significant scar tissue he underwent a transurethral resection of the scar tissue I had a wide wide open channel but unfortunate the scarred down again and on cystoscopy is found to have a pinpoint opening into the bladder he has significant voiding problems. He does have a remote history of bladder cancer no active cancer. Today we will proceed with a robotic simple prostatectomy and excision of the bladder neck contracture and also revision of the bladder neck. Patient was taken back to the operating room after smooth induction of general anesthesia he was placed upon the table make sure his arms and legs were padded and placed in dorsolithotomy position in proper position after securing it to the table properly the abdomen was shaved prepped and draped in usual sterile fashion we attempted place a Orta catheter but would not go into the bladder as we just left this and as far as possible. I then made a small incision above the umbilicus placed a robotic port insufflated the abdomen CO2 gas I then infiltrated the skin on the right side made a small incision in the abdomen advance the trocar into the abdomen insufflated the skin on the right side again and then made a incision in the skin about 10 mm in advance the air seal port into the abdomen and then made another incision the skin under direct visualization we placed the other port finally went to the left side and placed 2 more ports made incision in the skin infiltrated skin with lidocaine and placed 2 more ports on the left side at the end we had placed the camera port right arm port and 2 left arm robotic ports and an air seal port. The place of the patient was then placed in Trendelenburg. Within the right docked the robot to proceed with a approach to the to the bladder we got and then we could see that the bladder was partially full started making incision in the midline in the bladder prior to this I first mobilized the colon off the lateral sidewall so that I was out of the way by incising the attachments of the colon to the lateral sidewall after the colon was released the sigmoid colon was released and lateral sidewall then we proceeded to the bladder using electrocautery and the scissors I then opened up the bladder in the midline about a 7 cm incision in the bladder once I got down the mucosa we opened up the mucosa and there was just urine in the bladder that was clear at this point his urine was was suction and was removed and the urine looked inside the bladder there was no tumors in the bladder it was somewhat of a little smaller bladder lobe contracted then opening up the bladder the midline and went to the bladder neck and he could see a pinpoint opening in the bladder neck. We pushed open push the Orta catheter and it would not go past this pinpoint opening I then used the scissors to circumferentially Scor all the way around the bladder neck getting down to the scar tissue and started excising the scar tissue all the way around we also got into the adenoma and resected some of the adenomatous tissue mostly anterior to resect the adenomatous tissue to resect this all completely. Then as is also following around the scar tissue coming from the inside the prostatic fossa we cut it off so that it was in the inside the prostatic fossa anteriorly there is some also start scar tissue down to the adenomatous tissue this was also resected back then at this point we able to advancing the Orta catheter in and it went all the way to the bladder without any obstruction I then freed up the mucosal edges I circumferentially cut to free up the mucosal edge so that we could reconstruct the bladder neck I then started with the 3 oh STRATAFIX and started at the 6 o'clock position the bladder neck to the 6 o'clock position of the urethra and I I ran the stitch from the urethra to the edge of the bladder neck were then resected to bring down the the mucosa of the bladder to the urethra in order to cover up the resected tissue in the ringdown nice healthy mucosa to the urethra. We started at the 6:00 moved to 9:00 continue stitch went into the 12:00 and then to the 3:00 and then at this point I ran out of the suture so I switched over to the neck suture and used a 3 oh STRATAFIX and was able to refinished reapproximating the mucosa reconstructing the bladder neck and found to the urethra with the with the 3 oh V-STRATAFIX stitch. Then after advancing the mucosa down to the urethra covering up all the scar tissue and that the scar tissue that had been resected as well as the adenomatous tissue then we completed the resection of the bladder neck and we completed the simple prostatectomy I then will put a new catheter in the bladder is an 18 [place] tip Orta catheter inflated 10 cc in the balloon and then started with closing of the bladder neck started at the inferior portion of the bladder neck with a 2 oh V-Loc stitch and we ran the stitch closing the mucosa of the muscle layer all the way up to the top of the incision and then we ran the second layer with the 0 Vicryl suture running along the bladder all the way up close into the top and then we stitched the 2 ends together The 2 ends remove the stitches at this point then the robot was undocked we extracted the adenomatous tissue and the BPH tissue was put in Endo Catch bag after it was resected this was removed. Then the Orta catheter was flushed we then closed the 1012 air seal port was closed with a Vicryl stitch to close the fascia and then we closed all the other incisions with subcuticular stitches using 4-0 Monocryl and Steri-Strips patient's anesthetic is currently being reversed. Very minimal blood loss during the case and patient's anesthetic was reversed taken back to PACU in stable condition. Surgeon: Erasto Murphy Type of Anesthesia: General Drains: 18 fr [place] tip Estimated Blood Loss (mL): 10 Admit VTE Documentation VTE Present on Admission: No VTE Mechan Device Prophylaxis: SCD's VTE Pharm Prophylaxis ordered?: No
--- NOTE | 2024-02-18 09:42 | PCM.POST.ANE ---
Anesthesia: Postop Eval I Current Vital Signs Temperature: 98.4 F Pulse Rate: 85 Blood Pressure: 147/71 Respiratory Rate: 20 Pulse Ox: 100 Oxygen Delivery Method: Room Air Assessment Airway patent: Yes Spontaneous unlabored respirations: Yes Mental status: Awake nausea: No Vomiting: No Anesthesia Complication: No Fluid Hydration Crystalloid volume administer (ml): 1,200 Total IV fluid infused: 1,200 Progress Note Anesthesia document: Postop Eval 1 completed: Yes
--- NOTE | 2024-02-18 09:51 | POSTOPAN2_ITS ---
Anesthesia Postop Eval I Sum Postop Eval Completion status Anesthesia document: Postop Eval 1 completed: Yes Anesthesia Postop Eval I Summary Anesthesia Postop Eval I Summary: Anesthesia Postop Eval I: Assessment Summary Airway patent Yes 02/18/24 09:43 LEADERSHIP [email or web address] Spontaneous unlabored Yes 02/18/24 09:43 LEADERSHIP [email or web address] respirations Mental status Awake 02/18/24 09:43 LEADERSHIP INTERN.JDEF nausea No 02/18/24 09:43 LEADERSHIP INTERN.JDEF Vomiting No 02/18/24 09:43 LEADERSHIP [email or web address] Anesthesia Postop Eval I: Fluid Summary Crystalloid volume administer 1,200 02/18/24 09:43 LEADERSHIP INTERN.JDEF (ml) Colloids volume administered ( ml) Blood Product volume administered (ml) Total IV fluid infused 1,200 02/18/24 09:43 LEADERSHIP INTERN.JDEF Anesthesia Postop Eval I: Summary Notes Anesthesia Complication No 02/18/24 09:43 LEADERSHIP [email or web address] Anesthesia Complication Comment: Post-operative progress note Anesthesia: Postop Eval II Evaluation Mental status: Awake Pain Level: 4 nausea: No Vomiting: No Progress Note Post-operative progress note: irritation from donaldson, agitated mildly Complications Anesthesia Complication: No
--- NOTE | 2024-02-18 09:51 | PCM.POSTANE2 ---
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 Spontaneous unlabored Yes 02/18/24 09:43 FIBERGLASS BOAT BUILDER.JDEF respirations Mental status Awake 02/18/24 09:43 FIBERGLASS BOAT BUILDER.JDEF nausea No 02/18/24 09:43 FIBERGLASS BOAT BUILDER.JDEF Vomiting No 02/18/24 09:43 FIBERGLASS BOAT BUILDER.JDEF Anesthesia Postop Eval I: Fluid Summary Crystalloid volume administer 1,200 02/18/24 09:43 FIBERGLASS BOAT BUILDER.JDEF (ml) Colloids volume administered ( ml) Blood Product volume administered (ml) Total IV fluid infused 1,200 02/18/24 09:43 FIBERGLASS BOAT BUILDER.JDEF Anesthesia Postop Eval I: Summary Notes Anesthesia Complication No 02/18/24 09:43 FIBERGLASS BOAT BUILDER.JDEF Anesthesia Complication Comment: Post-operative progress note Anesthesia: Postop Eval II Evaluation Mental status: Awake Pain Level: 4 nausea: No Vomiting: No Progress Note Post-operative progress note: irritation from donaldson, agitated mildly Complications Anesthesia Complication: No
[2024-02-18] MEDS: Morphine 4 MG/ML Syringe IV (09:59)
[2024-02-18] MEDS: Ketorolac 30 MG/ML Syringe IV (09:59)
--- NOTE | 2024-02-18 14:17 | PCM.POSTANE2 ---
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 Spontaneous unlabored Yes 02/18/24 09:43 HYDROELECTRIC POWERPLANT SUPERVISOR.LORAINE respirations Mental status Awake 02/18/24 09:51 nausea No 02/18/24 09:51 Vomiting No 02/18/24 09:51 Anesthesia Postop Eval I: Fluid Summary Crystalloid volume administer 1,200 02/18/24 09:43 HYDROELECTRIC POWERPLANT SUPERVISOR.LayneDEF (ml) Colloids volume administered ( ml) Blood Product volume administered (ml) Total IV fluid infused 1,200 02/18/24 09:43 HYDROELECTRIC POWERPLANT SUPERVISOR.LayneDEF Anesthesia Postop Eval I: Summary Notes Anesthesia Complication No 02/18/24 09:51 Anesthesia Complication Comment: Post-operative progress note Anesthesia: Postop Eval II Evaluation Mental status: Awake and Calm Pain Level: 1 nausea: No Vomiting: No Complications Anesthesia Complication: No
[2024-02-18] MEDS: Ciprofloxacin 400 MG/200 ML BAG 200 MG IV (16:03)
[2024-02-18] MEDS: Atorvastatin Calcium 40 MG Tablet PO (20:59)
[2024-02-18] MEDS: Docusate Sodium 100 MG Capsule 200 MG PO (20:59)
[2024-02-19 03:30] VITALS: BP 139/67; PULSE 64; RESP 18; TEMP 36.6; O2SAT 99
[2024-02-19] MEDS: Ciprofloxacin 400 MG/200 ML BAG 200 MG IV (03:42)
[2024-02-19] MEDS: Levothyroxine 100 MCG Tablet PO (03:44)
[2024-02-19 06:46] VITALS: O2SAT 93
--- NOTE | 2024-02-19 07:44 | PCM.PN.GU ---
Subjective Subjective s/p reconstruction of bladder and simple prostaectomy home WITH donaldson today Objective Data Objective Data Vital Signs: Vital Signs Temp Pulse Resp BP Pulse Ox O2 Del Method 98 F 64 18 139/67 H 99 Room Air 02/19/24 03:30 02/19/24 03:30 02/19/24 03:30 02/19/24 03:30 02/19/24 03:30 02/19/24 03:30 Oxygen Delivery Method Room Air Weight: 62 kg Body Mass Index (BMI) 19.5 Intake & Output: Intake and Output for Last 24 Hours 02/17/24 02/18/24 02/19/24 23:59 23:59 23:59 Intake Total 2211.67 / 2211.67 200 / 200 Output Total 1465 / 1465 600 / 600 Balance 746.67 / 746.67 -400 / -400
--- NOTE | 2024-02-19 07:45 | DCINST_ITS ---
Discharge Instructions Diet Discharge Diet: Light diet - advance as tolerated and Soft diet Activity May shower in (days): 1 Dressing / Incision Suture Line Care: Avoid Pulling/Pushing and Avoid Pinching/Bending Catheter: Orta to leg bag and Orta to large bag Drain: [place] Follow Up Care Please Follow Up With: Erasto Murphy MD Test Results: Test results from this visit will be discussed in further detail at your follow- up appointment, if applicable. Discharge Plan Admission Admit Date/Time: 02/18/24 07:28 Primary Reason for Your Visit: simple robotic prostatectomy and resection of bladder neck contracture Attending Provider: Erasto Murphy Primary Care Provider: lT Guzman Discharge Orders/Prescriptions Prescriptions: New ciprofloxacin HCl [Cipro] 500 mg tablet 500 mg PO BID Qty: 10 0RF oxycodone 10 mg tablet 10 mg PO Q6H PRN (Reason: pain) 7 Days Qty: 10 0RF docusate sodium [Colace] 100 mg capsule 100 mg PO BID Qty: 20 0RF Continued ramipril 5 mg capsule 5 mg PO QDAY nitroglycerin 0.4 mg tablet, sublingual 0.4 mg sublingual Q5-15M levothyroxine 50 MCG tablet 100 mcg PO MOTUWETHFRSA acetaminophen [Tylenol] 325 mg Tablet 650 mg PO Q4H PRN PRN (Reason: Pain 1-10 Or Fever) Qty: 0 0RF atorvastatin 40 mg tablet 40 mg PO QHS Qty: 90 3RF Discontinued aspirin 81 MG tablet 81 mg PO DAILY@0800 0RF Referrals / Follow Up: Tl Guzman MD [Primary Care Provider] - Erasto Murphy MD [Med Staff - Active Staff] - Disposition Discharge Orders: Discharge Patient (Routine); Ordered 02/19/24 Ordered By: Dr. Erasto Murphy
[2024-02-19 08:05] VITALS: BP 126/60; PULSE 65; RESP 18; TEMP 36.9; O2SAT 100
[2024-02-19] MEDS: Docusate Sodium 100 MG Capsule 200 MG PO (08:06)
[2024-02-19] MEDS: Ramipril 5 MG Capsule PO (08:06)
--- NOTE | 2024-02-19 10:06 | PHA.DC_ITS ---
Pharmacy [facility] has performed discharge medication reconciliation and counseling for this patient. The patient's discharge medication list was reviewed for discrepancies and discrepancies were resolved. The patient was counseled on the following discharge medications and changes in medications for homegoing were reviewed. 1. CIPRO 2. OXYCODONE 3. DOCUSATE The Reason for Use, instructions for use, and potential side effects were reviewed for all new medications. The patient's questions regarding all of their medications were answered. The patient was able to verbally demonstrate an understanding of their discharge medications. The patient was counselled by Murtaza De Oliveira PharmD Candidate Medications at Discharge Home Medications levothyroxine 50 mcg tablet 100 mcg PO MOTUWETHFRSA 02/24/16 atorvastatin 40 mg tablet 40 mg PO QHS #90 tabs 05/31/19 acetaminophen 325 mg tablet (Tylenol) 650 mg (2 x 325 mg) PO Q4H PRN PRN Pain 1- 10 Or Fever #0 tabs 11/23/21 nitroglycerin 0.4 mg sublingual tablet 0.4 mg sublingual Q5-15M 12/18/23 ramipril 5 mg capsule 5 mg PO QDAY 12/18/23 ciprofloxacin HCl 500 mg tablet (Cipro) 500 mg PO BID #10 tabs 02/18/24 docusate sodium 100 mg capsule (Colace) 100 mg PO BID #20 caps 02/18/24 oxycodone 10 mg tablet 10 mg PO Q6H PRN pain 7 days #10 tabs 02/18/24
--- NOTE | 2024-02-19 10:36 | CASEMGMT ---
Met with patient to complete POP form. POP form explained to patient who voiced understanding and signed form. Original form placed in pt?s chart and copy provided to patient. Kathe Em, Discharge Planning Asst
--- NOTE | 2024-02-19 10:56 | CASEMGMT ---
Noted DC order, RN CM into pt room. Pt states understands all DC instructions and is comfortable going home with Orta catheter in place. Denies any questions or concerns at this time.
== END 2024-02-19 11:51 | disposition home or self-care (01) ==
LOC: SDC 09:44 → MS3 09:44
PROVIDERS: Anesthesiology; Admitting Provider Urology; PCP Family Medicine; Referring Provider Urology; Visit Provider Urology
PROC: 0VT04ZZ Resection of Prostate, Percutaneous Endoscopic Approach (ICD-10-PCS; CPT 55866; principal; 2024-02-18 07:10)
DX: C61 Malignant neoplasm of prostate (principal); N40.1 Benign prostatic hyperplasia with lower urinary tract symptoms; I25.10 Atherosclerotic heart disease of native coronary artery without angina pectoris; I10 Essential (primary) hypertension; E78.00 Pure hypercholesterolemia, unspecified; Z87.891 Personal history of nicotine dependence; N13.8 Other obstructive and reflux uropathy; N32.89 Other specified disorders of bladder; Z79.899 Other long term (current) drug therapy; Z79.82 Long term (current) use of aspirin; E07.9 Disorder of thyroid, unspecified; Z79.890 Hormone replacement therapy; R06.09 Other forms of dyspnea
CPT/HCPCS: 55867; 52640; 00865; 36415; 84443; 88305; 88341; 88342; 94668; 96365; 96366; 96375; 99221; 99252; J7030; J7120; G0378; G0463; J0612; J0744; J2405

== ENCOUNTER 2024-02-20 01:52 | Emergency (ER) | payer MEDICARE, SELFPAY ==
[2024-02-20 01:53] VITALS: BP 135/69; PULSE 64; RESP 18; TEMP 36.6; O2SAT 95; BMI 20.5
--- NOTE | 2024-02-20 02:33 | ED.RN ---
PRE VOID 47CC AMOUNT.
--- NOTE | 2024-02-20 03:13 | EDS_ITS ---
HPI History of Present Illness Chief Complaint: Orta C/O Informant: patient, spouse/S.O. and family Narrative Narrative: Patient is an 83-year-old male with past medical history of hypertension hyperlipidemia as well as BPH who recently underwent prostate surgery secondary to difficulty with urination. Patient and family state that the catheter was placed on Friday and he supposed to have it in place for approximately 1 week. Patient reports that he did not like having the catheter in and so roughly 1 hour prior to arrival he went out to the garage cut the tubing. He states he then pulled the tubing and noted he had some pain and blood so he told his and secondary to this comes to the hospital for evaluation and potential catheter placement [facility] Medical History Wears glasses Wears partial dentures Alcohol use Thyroid disease High cholesterol Former smoker History of echocardiogram History of stress test Cardiology follow-up encounter History of heart attack Pure hypercholesterolemia Essential hypertension Bladder cancer Hyperlipidemia Hypertension Atherosclerotic heart disease of [place] coronary artery without angina pectoris Home Medications ?Medication ?Instructions ?Recorded ?Last Taken ?Type levothyroxine 50 mcg tablet 100 mcg PO MOTUWETHFRSA 02/24/16 01/12/24 History atorvastatin 40 mg tablet 40 mg PO QHS #90 tabs 05/31/19 08/14/23 Rx acetaminophen 325 mg tablet 650 mg (2 x 325 mg) PO Q4H PRN PRN 11/23/21 Unknown Rx (Tylenol) Pain 1-10 Or Fever #0 tabs nitroglycerin 0.4 mg sublingual 0.4 mg sublingual Q5-15M 12/18/23 Unknown History tablet ramipril 5 mg capsule 5 mg PO QDAY 12/18/23 01/12/24 History ciprofloxacin HCl 500 mg tablet 500 mg PO BID #10 tabs 02/18/24 Unknown Rx (Cipro) docusate sodium 100 mg capsule 100 mg PO BID #20 caps 02/18/24 Unknown Rx (Colace) oxycodone 10 mg tablet 10 mg PO Q6H PRN pain 7 days #10 02/18/24 Unknown Rx tabs Allergy/AdvReac Type Severity Reaction Status Date / Time No Known Allergies Allergy Verified 02/20/24 02:01 Family History Father CAD (coronary artery disease) Myocardial infarction, Onset Age: 56 Grandmother Heart disease Uncle Heart disease Surgical History Hx of right cataract extraction Hx of left cataract extraction History of esophagogastroduodenoscopy (EGD) Hx of bladder repair surgery History of cardiac catheterization History of appendectomy History of cystoscopy Postsurgical percutaneous transluminal coronary angioplasty (PTCA) status (~09/07/01) Presence of stent in coronary artery (~06/26/18) Presence of aortocoronary bypass graft (~10/23/00) Social History Smoking Status: Former smoker how long ago did patient quit smokin years ago alcohol intake: current alcohol intake frequency: a few times a month Alcohol type: beer details: occasional caffeine: Yes Type: carbonated beverages Number of servings: 2 ROS ROS ED Constitutional Constitutional ED: Denies chills or fever(s) ENT ENT ED: Denies sore throat Cardiovascular Cardiovascular: Denies chest pain Respiratory/Chest Respiratory/Chest: Denies cough or dyspnea Gastrointestinal Gastrointestinal: Denies abdominal pain, diarrhea, nausea or vomiting Genitourinary Genitourinary ED: Reports hematuria and urinary frequency; Denies dysuria Musculoskeletal Musculoskeletal: Denies back pain or myalgias Integumentary Denies rash Neurologic Neurologic: Denies headache(s) Hematologic/Lymphatic Hematologic/Lymphatic: Denies easy bleeding or easy bruising EXAM Physical Exam Const Vital Signs: 02/20/24 01:53 02/20/24 03:19 Temperature 97.9 F 97.9 F Temperature Source Temporal Pulse Rate 64 61 Respiratory Rate 18 18 Blood Pressure 135/69 H 135/69 H Blood Pressure Mean 91 91 Pulse Ox 95 95 Oxygen Delivery Method Room Air Positive well nourished and well developed General Appearance ED: well developed; Negative for pallor HEENT HEENT Narrative: Normocephalic atraumatic Eyes PERRL and EOMs intact bilaterally General Eye ED: Negative for scleral icterus Neck supple Resp normal respiratory effort and clear to auscultation bilaterally Cardio regular rate and regular rhythm GI normal to inspection, nondistended, normoactive bowel sounds, non-tender, non-distended and no masses GI Narrative: No organomegaly to suggest acute urinary retention No voluntary guarding or rigidity or pulsatile mass Auscultation: normoactive bowel sounds Palpation: soft Narrative: Normal circumcised male without blood or discharge from the urethral meatus. No testicular swelling or masses noted. No surrounding secondary changes to suggest Christiano's gangrene Back/Spine no CVA tenderness Extremity normal to inspection Neuro oriented x3, CN's II-XII intact bilaterally and no sensory deficits noted Sensorium / Orientation: alert Motor Exam: strength 5/5 throughout Psych mental status grossly normal Skin no rashes or lesions noted General Skin Exam: Negative for jaundice or pallor MDM MDM MDM Narrative Medical decision making narrative: Patient arrived to the ER with stable vitals and reported that he manually removed the catheter after cutting the tubing. There is concern for acute urinary retention as the catheter is now removed and he has history of BPH and recent surgery. There is also concern for acute UTI as the patient is reporting urinary frequency. The patient could also have potential acute kidney injury secondary to obstruction. On exam he does not have organomegaly to suggest acute retention and this would correlate with the fact the catheter is only been out for approximately 1 to 2 hours. I have low concern for infection as well as catheter has been in place since his surgery and the patient only has had urinary frequency since pulling the catheter on his own. As he reports that he cut the tubing this would indicate that the balloon deflated and that he did not have active bleeding from the urethral meatus concern for urethral injury is low as well. Therefore at this time the catheter will be replaced in order to prevent obstruction from the irritation and bleeding associated with his recent surgery but as vitals are stable and he is not having acute retention there is no need for further workup and he is otherwise safe for discharge. History & Record Review Discussion w/independent historian: Patient, Family and Significant other Discharge Plan Triage Chief Complaint: Orta C/O ED Provider: Austin Rivera Dx/Rx/DC Orders Clinical Impression: Orta catheter problem, Hypertension, Benign prostatic hyperplasia, Hyperlipidemia Instructions: Indwelling Urinary Catheter Dc, ED Orta Catheter, Care Prescriptions: No Action ramipril 5 mg capsule 5 mg PO QDAY nitroglycerin 0.4 mg tablet, sublingual 0.4 mg sublingual Q5-15M levothyroxine 50 MCG tablet 100 mcg PO MOTUWETHFRSA acetaminophen [Tylenol] 325 mg Tablet 650 mg PO Q4H PRN PRN (Reason: Pain 1-10 Or Fever) Qty: 0 0RF ciprofloxacin HCl [Cipro] 500 mg tablet 500 mg PO BID Qty: 10 0RF oxycodone 10 mg tablet 10 mg PO Q6H PRN (Reason: pain) 7 Days Qty: 10 0RF docusate sodium [Colace] 100 mg capsule 100 mg PO BID Qty: 20 0RF atorvastatin 40 mg tablet 40 mg PO QHS Qty: 90 3RF Primary Care Provider: Tl Guzman Referrals: Tl Guzman MD [Primary Care Provider] - Erasto Murphy MD [Med Staff - Active Staff] - Print Language: Chilean Disposition Disposition: Home, Self Care Discharge Date/Time: 02/20/24 03:20
[2024-02-20 03:19] VITALS: BP 135/69; PULSE 61; RESP 18; TEMP 36.6; O2SAT 95
== END 2024-02-20 03:20 | disposition home or self-care (01) ==
PROVIDERS: Emergency Provider Emergency Medicine; PCP Family Medicine; Visit Provider Emergency Medicine
DX: T83.89XA Other specified complication of genitourinary prosthetic devices, implants and grafts, initial encounter (principal); E78.00 Pure hypercholesterolemia, unspecified; Z87.891 Personal history of nicotine dependence; I10 Essential (primary) hypertension; I25.10 Atherosclerotic heart disease of native coronary artery without angina pectoris; R35.0 Frequency of micturition; N40.1 Benign prostatic hyperplasia with lower urinary tract symptoms; Z98.890 Other specified postprocedural states; Y73.8 Miscellaneous gastroenterology and urology devices associated with adverse incidents, not elsewhere classified
CPT/HCPCS: 51702; 99283

== ENCOUNTER → 2024-02-26 | Outpatient (CLI) | payer MEDICARE, SELFPAY ==
[2024-02-26 10:14] LABS: PSA,Total- Diagnostic 0.44 ng/mL (0.0-4.0)
== END | disposition home or self-care (01) ==
LOC: LAB 09:17
PROVIDERS: PCP Family Medicine; Referring Provider Urology; Visit Provider Urology
DX: N32.0 Bladder-neck obstruction (principal)
CPT/HCPCS: 36415; 84153

== ENCOUNTER → 2024-05-21 | Outpatient (CLI) | payer MEDICARE, SELFPAY ==
[2024-05-21 09:06] LABS: Mucous, Urine 0 SEEN /hpf (<or=2+)
[2024-05-21 10:44] LABS: Color, Urine Yellow (Yellow); Glucose, Dipstick Normal (Normal); Ketone-Dipstick Negative (Negative); Leukocyte Esterase-Dipstick 100 /ul (Negative); Nitrite-Dipstick Negative (Negative); Occult Blood-Urine 250 /ul (Negative); Protein-Dipstick 30 mg/dl (Negative); Specific Gravity, Urine 1.015 (1.002-1.030); Urine Bilirubin Dipstick Negative (Negative); Urine Clarity Sl. Cloudy (Clear); Urine Urobilinogen Normal (Normal)
[2024-05-21 10:53] LABS: Red Blood Cells-Urine 25-50 SEEN /hpf (0-5); Squamous Epithelial Cells - UA 0-5 SEEN /hpf (0-5)
[2024-05-21 10:54] LABS: Bacteria 1+ /hpf (None Seen); White Blood Cells 5-10 SEEN /hpf (0-5)
== END | disposition home or self-care (01) ==
LOC: MFPLAB 09:05
PROVIDERS: PCP Family Medicine; Visit Provider Family Medicine
DX: R30.0 Dysuria (principal)
CPT/HCPCS: 81001; 87086

== ENCOUNTER 2024-09-23 23:51 | Emergency (ER) | payer MEDICARE, SELFPAY ==
[2024-09-23 23:52] VITALS: BP 209/75; PULSE 71; RESP 17; TEMP 36.2; O2SAT 100; BMI 22.4
[2024-09-24 00:52] VITALS: BP 190/91; PULSE 68; RESP 15; O2SAT 98
[2024-09-24 01:00] VITALS: BP 154/115; PULSE 71; RESP 20; O2SAT 95
[2024-09-24] MEDS: Ondansetron 4 MG/2 ML Vial IV (01:08)
[2024-09-24] MEDS: Morphine 4 MG/ML Syringe 2 MG IV (01:08)
[2024-09-24] MEDS: Lorazepam 2 MG/ML WCH Syringe 1 MG IV (01:08)
[2024-09-24] MEDS: 0.9% Normal Saline (500mL Bag) 500 ML 999 ML IV (01:09)
[2024-09-24 02:00] VITALS: BP 171/99; PULSE 73; PULSE 74; RESP 16; RESP 20; O2SAT 91; O2SAT 96
--- NOTE | 2024-09-24 02:45 | EX.ED.DYSGE1 ---
HPI History of Present Illness Chief Complaint: Foreign Body Informant: patient, spouse/S.O. and family Narrative Narrative: Patient is an 84-year-old male with past medical history of hypertension hyperlipidemia and hypothyroidism as well as previous esophageal stricture requiring dilation roughly 2 years ago.patient states this evening he ate a apple freighter and then a part of an orange and he states after this he felt that the food was stuck in his upper throat and he had bouts of vomiting and then afterwards could not swallow food or water. He denies any shortness of breath but states as he feels the food is stuck he presents for evaluation. [facility] Medical History (Reviewed 03/26/24 @ 11:09 by Malik Avalos SHARED SERVICES REPRESENTATIVE, SHARED SERVICES REPRESENTATIVE-C) Wears glasses Wears partial dentures Alcohol use Thyroid disease High cholesterol Former smoker History of echocardiogram History of stress test Cardiology follow-up encounter History of heart attack Pure hypercholesterolemia Essential hypertension Bladder cancer Hyperlipidemia Hypertension Atherosclerotic heart disease of [place] coronary artery without angina pectoris Home Medications ?Medication ?Instructions ?Recorded ?Last Taken ?Type atorvastatin 40 mg tablet 40 mg PO QHS #90 tabs 05/31/19 08/14/23 Rx acetaminophen 325 mg tablet 650 mg (2 x 325 mg) PO Q4H PRN PRN 11/23/21 Unknown Rx (Tylenol) Pain 1-10 Or Fever #0 tabs nitroglycerin 0.4 mg sublingual 0.4 mg sublingual Q5-15M 12/18/23 Unknown History tablet ramipril 5 mg capsule 5 mg PO QDAY 12/18/23 01/12/24 History aspirin 81 mg tablet,delayed 81 mg PO DAILY 03/26/24 Unknown History release (Adult Low Dose Aspirin) levothyroxine 100 mcg tablet 100 mcg PO MOTUWETHFRSA 03/26/24 Unknown History Allergy/AdvReac Type Severity Reaction Status Date / Time No Known Allergies Allergy Verified 09/23/24 23:52 Family History (Reviewed 03/26/24 @ 11:09 by Malik Avalos SHARED SERVICES REPRESENTATIVE, SHARED SERVICES REPRESENTATIVE-C) Father CAD (coronary artery disease) Myocardial infarction, Onset Age: 56 Grandmother Heart disease Uncle Heart disease Surgical History (Reviewed 03/26/24 @ 11:09 by Malik Avalos SHARED SERVICES REPRESENTATIVE, SHARED SERVICES REPRESENTATIVE-C) History of left heart catheterization (~12/2023) History of robot-assisted laparoscopic radical prostatectomy (~02/18/24) Hx of right cataract extraction Hx of left cataract extraction History of esophagogastroduodenoscopy (EGD) Hx of bladder repair surgery History of cardiac catheterization History of appendectomy History of cystoscopy Postsurgical percutaneous transluminal coronary angioplasty (PTCA) status (~09/07/01) Presence of stent in coronary artery (~06/26/18) Presence of aortocoronary bypass graft (~10/23/00) Social History (Reviewed 03/26/24 @ 11:09 by Malik Avalos SHARED SERVICES REPRESENTATIVE, SHARED SERVICES REPRESENTATIVE-C) Smoking Status: Former smoker how long ago did patient quit smokin years ago alcohol intake: current alcohol intake frequency: 0-2 drinks per day Alcohol type: beer substance use type: does not use caffeine: Yes Type: carbonated beverages Number of servings: 2 ROS ROS ED Constitutional Constitutional ED: Denies chills or fever(s) Eyes Eyes: Denies change in vision ENT ENT ED: Reports sore throat Cardiovascular Cardiovascular: Denies chest pain Respiratory/Chest Respiratory/Chest: Denies cough or dyspnea Gastrointestinal Gastrointestinal: Reports nausea and vomiting; Denies abdominal pain or diarrhea Genitourinary Genitourinary ED: Denies dysuria Musculoskeletal Musculoskeletal: Reports neck pain Integumentary Denies rash Neurologic Neurologic: Denies headache(s) Hematologic/Lymphatic Hematologic/Lymphatic: Denies easy bleeding or easy bruising Allergic/Immunologic Allergic/Immunologic ED: Denies mouth swelling or tongue swelling EXAM Physical Exam Const Vital Signs: 09/23/24 23:52 09/24/24 00:52 09/24/24 01:00 Temperature 97.2 F L Temperature Source Temporal Pulse Rate 71 68 71 Respiratory Rate 17 15 20 H Respiratory Effort Respiratory Pattern Blood Pressure 209/75 H 190/91 H 154/115 H Blood Pressure Mean 119 124 128 Pulse Ox 100 98 95 Oxygen Delivery Method Room Air Room Air Room Air 09/24/24 01:17 09/24/24 02:00 09/24/24 02:00 Temperature Temperature Source Pulse Rate 74 73 Respiratory Rate 20 H 16 Respiratory Effort Normal Respiratory Pattern Normal Blood Pressure 171/99 H 171/99 H Blood Pressure Mean 123 123 Pulse Ox 91 96 Oxygen Delivery Method Room Air Room Air 09/24/24 02:53 Temperature 98.3 F Temperature Source Pulse Rate 77 Respiratory Rate 18 Respiratory Effort Respiratory Pattern Blood Pressure 188/89 H Blood Pressure Mean 122 Pulse Ox 92 Oxygen Delivery Method Positive well nourished and well developed General Appearance ED: well developed; Negative for pallor HEENT HEENT Narrative: No tongue or lip swelling no oral lesions no airway edema or compromise No sign of infection or foreign object noted in the posterior pharynx. Eyes PERRL and EOMs intact bilaterally Neck supple Neck Narrative: No subcutaneous emphysema or crepitance noted No pain with external manipulation of the thyroid cartilage Resp normal respiratory effort and clear to auscultation bilaterally Cardio regular rate and regular rhythm GI normal to inspection, nondistended, normoactive bowel sounds, non-tender, non-distended and no masses Auscultation: normoactive bowel sounds Palpation: soft Extremity normal to inspection Neuro oriented x3, CN's II-XII intact bilaterally and no sensory deficits noted Sensorium / Orientation: alert Motor Exam: strength 5/5 throughout Psych mental status grossly normal Skin no rashes or lesions noted General Skin Exam: Negative for jaundice or pallor MDM MDM MDM Narrative Medical decision making narrative: Patient arrived to the ER hypertensive but has a past medical history of this. He is able to talk in full sentences his pulse ox is 95 to 100% on room air and he has no signs of distress going against a potential aspiration and therefore do not feel the need for a chest x-ray. As his history and exam is consistent with an esophageal obstruction he was given Ativan and morphine to relax smooth muscle. He reports after roughly 1 hour from the onset of medication that he feels like he can swallow. He was given a Coca-Cola and was able to drink the entire can without difficulty swallowing or recurrent bouts of vomiting indicating the esophageal obstruction has resolved. As she remained in no acute respiratory distress with a stable pulse ox concern for aspiration remains low. Therefore at this time he is able to be discharged home and follow-up with GI as an outpatient to discuss need for EGD as he most likely has repeat esophageal stricture causing the bout of esophageal obstruction this evening. However as the obstruction has spontaneously resolved and he is now able to swallow and he is not in respiratory distress he is otherwise safe for discharge History & Record Review Discussion w/independent historian: Patient and Family Discharge Plan Triage Chief Complaint: Foreign Body ED Provider: Austin Rivera Dx/Rx/DC Orders Clinical Impression: Esophageal obstruction due to food impaction, Hypertension, Hyperlipidemia, Hypothyroidism Instructions: ED Esophageal Foreign Body, Resolved Prescriptions: No Action aspirin [Adult Low Dose Aspirin] 81 mg tablet,delayed release (DR/EC) 81 mg PO DAILY levothyroxine 100 mcg tablet 100 mcg PO MOTUWETHFRSA ramipril 5 mg capsule 5 mg PO QDAY nitroglycerin 0.4 mg tablet, sublingual 0.4 mg sublingual Q5-15M acetaminophen [Tylenol] 325 mg Tablet 650 mg PO Q4H PRN PRN (Reason: Pain 1-10 Or Fever) Qty: 0 0RF atorvastatin 40 mg tablet 40 mg PO QHS Qty: 90 3RF Primary Care Provider: Tl Guzman Referrals: Tl Guzman MD [Primary Care Provider] - Tomas Khan DO [Med Staff - Active Staff] - Activity Restrictions/Additional Instructions: Please follow-up with Dr. Khan as you will most likely need a repeat EGD and esophageal dilation in order to prevent recurrent events of food obstruction. If you develop a fever or increased shortness of breath that could indicate that you aspirated with your bouts of vomiting today and you would need to be seen in the ER for repeat evaluation and potential admission for IV antibiotic. Otherwise follow-up with your family doctor and/or GI doctor for further evaluation and continue all of your home medication as previously directed Print Language: German Disposition Disposition: Home, Self Care Discharge Date/Time: 09/24/24 03:06
[2024-09-24 02:53] VITALS: BP 188/89; PULSE 77; RESP 18; TEMP 36.8; O2SAT 92
[2024-09-24] MEDS: Lidocaine 2% Viscous15 ML UDC 15 ML PO (03:03)
[2024-09-24] MEDS: Mag Hydrox/Al Hydrox/Simeth 30 ML UDC PO (03:03)
== END 2024-09-24 03:06 | disposition home or self-care (01) ==
PROVIDERS: Emergency Provider Emergency Medicine; PCP Family Medicine; Visit Provider Emergency Medicine
DX: K22.2 Esophageal obstruction (principal); E78.00 Pure hypercholesterolemia, unspecified; I25.10 Atherosclerotic heart disease of native coronary artery without angina pectoris; Z87.891 Personal history of nicotine dependence; E03.9 Hypothyroidism, unspecified; I10 Essential (primary) hypertension; T18.128A Food in esophagus causing other injury, initial encounter; W44.F3XA Food entering into or through a natural orifice, initial encounter
CPT/HCPCS: 96361; 96374; 96375; 99283; A4216; J2405

== ENCOUNTER 2024-09-24 08:22 | Observation (INO) | payer MEDICARE, SELFPAY ==
[2024-09-24] VITALS (20 sets, daily range): BP systolic 113–159; BP diastolic 62–99; PULSE 72–102; RESP 16–31; TEMP 36.6–37.7; O2SAT 89–98; BMI 23.1; BMI 21.5
--- NOTE | 2024-09-24 09:05 | EKG12_ITS ---
Test Reason : Blood Pressure : */* mmHG Vent. Rate : 98 BPM Atrial Rate : 98 BPM P-R Int : 148 ms QRS Dur : 122 ms QT Int : 404 ms P-R-T Axes : 41 -37 4 degrees QTcB Int : 515 ms Normal sinus rhythm Possible Left atrial enlargement Left axis deviation Right bundle branch block Abnormal ECG Confirmed by Roosevelt Jensen ([id number]), slot editor HARJIT BETHEA ([id number]) on 09/27/2024 10:46:23 AM Referred By: GREG Confirmed By: Roosevelt Jensen
--- NOTE | 2024-09-24 09:07 | EX.ED.DYSGE1 ---
HPI History of Present Illness Chief Complaint: Confusion Informant: patient and spouse/S.O. Narrative Narrative: 84-year-old male presenting to the emergency room chief complaint of confusion cough. Patient was seen in the emergency room last night was felt to have a possible esophageal foreign body which resolved. His states that he was doing a lot of vomiting prior to the resolution. In the interim since returning home he has developed a cough confusion and fever (101 per EMS). states that he seemed very unsteady on his feet. states that he is normally very healthy active individual. No further vomiting. No diarrhea. He was noted to be hypoxic down to 86% without oxygen on my examination. He readily comes up to the low 90s with 2 L. Patient has a history of bladder cancer patient has frequent urination because of that. He has a history of coronary artery disease. He denies any chest pain. He reportedly had esophageal dilatation about 2 years ago. [facility] Medical History Wears glasses Wears partial dentures Alcohol use Thyroid disease High cholesterol Former smoker History of echocardiogram History of stress test Cardiology follow-up encounter History of heart attack Pure hypercholesterolemia Essential hypertension Bladder cancer Hyperlipidemia Hypertension Atherosclerotic heart disease of [place] coronary artery without angina pectoris Home Medications ?Medication ?Instructions ?Recorded ?Last Taken ?Type atorvastatin 40 mg tablet 40 mg PO QHS #90 tabs 05/31/19 08/14/23 Rx acetaminophen 325 mg tablet 650 mg (2 x 325 mg) PO Q4H PRN PRN 11/23/21 Unknown Rx (Tylenol) Pain 1-10 Or Fever #0 tabs nitroglycerin 0.4 mg sublingual 0.4 mg sublingual Q5-15M 12/18/23 Unknown History tablet ramipril 5 mg capsule 5 mg PO QDAY 12/18/23 01/12/24 History aspirin 81 mg tablet,delayed 81 mg PO DAILY 03/26/24 Unknown History release (Adult Low Dose Aspirin) levothyroxine 100 mcg tablet 100 mcg PO [id number] 03/26/24 Unknown History Allergy/AdvReac Type Severity Reaction Status Date / Time No Known Allergies Allergy Verified 09/24/24 08:29 Family History Father CAD (coronary artery disease) Myocardial infarction, Onset Age: 56 Grandmother Heart disease Uncle Heart disease Surgical History History of left heart catheterization (~12/2023) History of robot-assisted laparoscopic radical prostatectomy (~02/18/24) Hx of right cataract extraction Hx of left cataract extraction History of esophagogastroduodenoscopy (EGD) Hx of bladder repair surgery History of cardiac catheterization History of appendectomy History of cystoscopy Postsurgical percutaneous transluminal coronary angioplasty (PTCA) status (~09/07/01) Presence of stent in coronary artery (~06/26/18) Presence of aortocoronary bypass graft (~10/23/00) Social History Smoking Status: Former smoker how long ago did patient quit smokin years ago alcohol intake: current alcohol intake frequency: 0-2 drinks per day Alcohol type: beer substance use type: does not use caffeine: Yes Type: carbonated beverages Number of servings: 2 ROS ROS ED Constitutional Constitutional ED: Reports fever(s); Denies chills or weight loss Eyes Eyes: Denies change in vision or diplopia ENT ENT ED: Reports sore throat; Denies ear pain or rhinorrhea Cardiovascular Cardiovascular: Denies chest pain, orthopnea, palpitations or racing heartbeat Respiratory/Chest Respiratory/Chest: Reports cough; Denies dyspnea or orthopnea Gastrointestinal Gastrointestinal: Denies abdominal pain, diarrhea, nausea or vomiting Genitourinary Genitourinary ED: Denies dysuria, hematuria or urinary frequency Musculoskeletal Musculoskeletal: Denies arthralgias or myalgias Integumentary Denies abscess or rash Neurologic Neurologic: Reports other Details: Confusion ; Denies headache(s) or weakness Psychiatric Psychiatric: Denies anxiety, depression, suicidal ideation or suicidal thoughts Endocrine Endocrinology: Denies polydipsia, polyphagia or polyuria Allergic/Immunologic Allergic/Immunologic ED: Denies mouth swelling, tongue swelling or urticaria EXAM Physical Exam Const Vital Signs: 09/24/24 08:23 09/24/24 08:27 09/24/24 09:05 Temperature 99.2 F H 99.2 F H Temperature Source Oral Oral Pulse Rate 101 H 102 H Respiratory Rate 20 H 31 H Blood Pressure 142/65 H 142/65 H Blood Pressure Mean 90 90 Pulse Ox 91 89 96 Oxygen Delivery Method Room Air Nasal Cannula Nasal Cannula Oxygen Flow Rate (L/min) 2 3 09/24/24 09:27 09/24/24 09:29 09/24/24 10:28 Temperature 98.2 F 98.3 F Temperature Source Oral Oral Pulse Rate 93 93 88 Respiratory Rate 16 16 20 H Blood Pressure 147/67 H 159/66 H 151/67 H Blood Pressure Mean 93 97 95 Pulse Ox 96 96 98 Oxygen Delivery Method Nasal Cannula Nasal Cannula Nasal Cannula Oxygen Flow Rate (L/min) 3 3 3 09/24/24 11:00 09/24/24 11:30 09/24/24 12:00 Temperature 98.9 F 98.4 F Temperature Source Oral Oral Pulse Rate 99 99 83 Respiratory Rate 19 H 16 16 Blood Pressure 157/81 H 157/81 H 131/63 H Blood Pressure Mean 106 106 85 Pulse Ox 95 94 98 Oxygen Delivery Method Nasal Cannula Nasal Cannula Room Air Oxygen Flow Rate (L/min) 3 3 09/24/24 13:00 Temperature 98.0 F Temperature Source Oral Pulse Rate 97 Respiratory Rate 16 Blood Pressure 142/95 H Blood Pressure Mean 110 Pulse Ox 94 Oxygen Delivery Method Nasal Cannula Oxygen Flow Rate (L/min) 3 Positive well nourished and well developed General Appearance ED: well developed and NAD HEENT Reports normocephalic, head/scalp atraumatic and moist mucous membranes Eyes PERRL and EOMs intact bilaterally Neck no lymphadenopathy, supple and no JVD Resp normal respiratory effort Resp Narrative: Tactile fremitus posterior right lower lung Auscultation: rhonchi right lower Cardio regular rate, regular rhythm and no murmurs Rate: tachycardic GI normal to inspection, nondistended, normoactive bowel sounds and non-tender Palpation: soft Back/Spine no CVA tenderness and normal ROM Extremity normal to inspection General Extremety ED: Negative for edema General Extremity: Negative for edema Neuro oriented x3 and CN's II-XII intact bilaterally Neuro Narrative: Patient does have some mild confusion when we converse. However he is orientated x 3 Sensorium / Orientation: alert Motor Exam: strength 5/5 throughout Psych mental status grossly normal Mood & Affect: Negative for depressed or tearful Skin no rashes or lesions noted and no wounds MDM MDM MDM Narrative Medical decision making narrative: Differential diagnosis includes aspiration pneumonitis pneumonia bronchospasm viral syndrome pharyngitis throat trauma My independent interpretation the chest x-ray is no acute process. White count is 3.9 hemoglobin 9.9 platelet count is 118. Lactic acid is normal at 1.9. Initially the patient's labs came back significantly hypokalemic hypomagnesemic and hypocalcemic. However this did not make much sense to me and asked that the labs be repeated which unfortunately they were canceled and then we needed to reorder them. The repeat labs show them to be within the normal range. A CT of the chest was obtained read by radiology reviewed by myself. Is being read as scarring at the bilateral bases. I do wonder if there is some pneumonitis in the right lower lung right middle lobe. Patient received a dose of Unasyn as well as a DuoNeb. Given the confusion and unsteadiness on his feet and the hypoxia I think it is reasonable that we bring him in. Family is comfortable with this plan. I spoke with the hospitalist who concurs. History & Record Review Discussion w/independent historian: Patient and Significant other Lab Data Attestation: I reviewed the patient's lab results. Labs: Laboratory Results - last 24 hr 09/24/24 09/24/24 09/24/24 09:12 09:24 09:24 WBC 3.9 L RBC 3.13 L Hgb 9.9 L Hct 28.0 L MCV 89.5 MCH 31.6 MCHC 35.4 RDW Std Deviation 43.8 RDW Coeff of Daron 13.5 Plt Count 118 L MPV 8.6 Immature Gran % (Auto) 0.300 Neut % (Auto) 85.7 H Lymph % (Auto) 5.7 L [place] % (Auto) 8.0 Eos % (Auto) 0.0 Baso % (Auto) 0.3 Absolute Neuts (auto) 3.3 Absolute Lymphs (auto) 0.22 L Nucleated RBC % 0 PT Cancelled INR Cancelled APTT Cancelled Sodium 144 Cancelled Potassium 2.1 L* Chloride Direct Carbon Dioxide Anion Gap BUN Creatinine Estim Creat Clear Calc Est GFR (MDRD) Non-Af BUN/Creatinine Ratio Glucose Lactic Acid Calcium Magnesium Total Bilirubin AST ALT Alkaline Phosphatase Total Protein Albumin Globulin Albumin/Globulin Ratio Urine Color Yellow Urine Clarity Clear Urine pH 5.0 Ur Specific Baker 1.015 Urine Protein 30 H Urine Glucose (UA) Normal Urine Ketones Negative Urine Occult Blood 250 H Urine Nitrite Negative Urine Bilirubin Negative Urine Urobilinogen Normal Ur Leukocyte Esterase 25 H Urine RBC 10-25 SEEN Urine WBC 5-10 SEEN Ur Squamous Epith Cells 0-5 SEEN Urine Bacteria RARE Urine Mucus 0 SEEN 09/24/24 09/24/24 09/24/24 09:24 09:24 09:24 WBC RBC Hgb Hct MCV MCH MCHC RDW Std Deviation RDW Coeff of Daron Plt Count MPV Immature Gran % (Auto) Neut % (Auto) Lymph % (Auto) [place] % (Auto) Eos % (Auto) Baso % (Auto) Absolute Neuts (auto) Absolute Lymphs (auto) Nucleated RBC % PT INR APTT Sodium Potassium Cancelled Chloride Direct 123 H Cancelled Carbon Dioxide 13.2 L Cancelled Anion Gap 9 BUN Creatinine Estim Creat Clear Calc Est GFR (MDRD) Non-Af BUN/Creatinine Ratio Glucose Lactic Acid Calcium Magnesium Total Bilirubin AST ALT Alkaline Phosphatase Total Protein Albumin Globulin Albumin/Globulin Ratio Urine Color Urine Clarity Urine pH Ur Specific Baker Urine Protein Urine Glucose (UA) Urine Ketones Urine Occult Blood Urine Nitrite Urine Bilirubin Urine Urobilinogen Ur Leukocyte Esterase Urine RBC Urine WBC Ur Squamous Epith Cells Urine Bacteria Urine Mucus 09/24/24 09/24/24 09/24/24 09:24 09:24 09:24 WBC RBC Hgb Hct MCV MCH MCHC RDW Std Deviation RDW Coeff of Daron Plt Count MPV Immature Gran % (Auto) Neut % (Auto) Lymph % (Auto) [place] % (Auto) Eos % (Auto) Baso % (Auto) Absolute Neuts (auto) Absolute Lymphs (auto) Nucleated RBC % PT INR APTT Sodium Potassium Chloride Direct Carbon Dioxide Anion Gap Cancelled BUN 14 Cancelled Creatinine 0.85 Cancelled Estim Creat Clear Calc 67.99 Est GFR (MDRD) Non-Af 86 BUN/Creatinine Ratio Glucose Lactic Acid Calcium Magnesium Total Bilirubin AST ALT Alkaline Phosphatase Total Protein Albumin Globulin Albumin/Globulin Ratio Urine Color Urine Clarity Urine pH Ur Specific Baker Urine Protein Urine Glucose (UA) Urine Ketones Urine Occult Blood Urine Nitrite Urine Bilirubin Urine Urobilinogen Ur Leukocyte Esterase Urine RBC Urine WBC Ur Squamous Epith Cells Urine Bacteria Urine Mucus 09/24/24 09/24/24 09/24/24 09:24 09:24 09:24 WBC RBC Hgb Hct MCV MCH MCHC RDW Std Deviation RDW Coeff of Daron Plt Count MPV Immature Gran % (Auto) Neut % (Auto) Lymph % (Auto) [place] % (Auto) Eos % (Auto) Baso % (Auto) Absolute Neuts (auto) Absolute Lymphs (auto) Nucleated RBC % PT INR APTT Sodium Potassium Chloride Direct Carbon Dioxide Anion Gap BUN Creatinine Estim Creat Clear Calc Est GFR (MDRD) Non-Af Cancelled BUN/Creatinine Ratio 16.7 Cancelled Glucose 90 Cancelled Lactic Acid 1.9 Calcium 5.0 L* Magnesium Total Bilirubin AST ALT Alkaline Phosphatase Total Protein Albumin Globulin Albumin/Globulin Ratio Urine Color Urine Clarity Urine pH Ur Specific Baker Urine Protein Urine Glucose (UA) Urine Ketones Urine Occult Blood Urine Nitrite Urine Bilirubin Urine Urobilinogen Ur Leukocyte Esterase Urine RBC Urine WBC Ur Squamous Epith Cells Urine Bacteria Urine Mucus 09/24/24 09/24/24 09/24/24 09:24 10:10 11:45 WBC RBC Hgb Hct MCV MCH MCHC RDW Std Deviation RDW Coeff of Daron Plt Count MPV Immature Gran % (Auto) Neut % (Auto) Lymph % (Auto) [place] % (Auto) Eos % (Auto) Baso % (Auto) Absolute Neuts (auto) Absolute Lymphs (auto) Nucleated RBC % PT 14.9 INR 1.1 APTT 23.6 L Sodium 140 Potassium 3.6 Chloride Direct 108 Carbon Dioxide 19.9 L Anion Gap 12 BUN 21 H Creatinine 1.54 H Estim Creat Clear Calc 37.53 Est GFR (MDRD) Non-Af 44 L BUN/Creatinine Ratio 13.8 Glucose 111 H Lactic Acid Calcium Cancelled 8.2 Magnesium 0.9 L* 1.5 Total Bilirubin 0.85 AST 17 ALT 10 Alkaline Phosphatase 40 Total Protein 3.5 L Albumin 2.3 L Globulin 1.1 L Albumin/Globulin Ratio 2.1 Urine Color Urine Clarity Urine pH Ur Specific Baker Urine Protein Urine Glucose (UA) Urine Ketones Urine Occult Blood Urine Nitrite Urine Bilirubin Urine Urobilinogen Ur Leukocyte Esterase Urine RBC Urine WBC Ur Squamous Epith Cells Urine Bacteria Urine Mucus Radiography Diagnostic Testing: Clinical Impression(s) from Imaging Studies Chest X-Ray 09/24/24 09:40 IMPRESSION: Stable examination. No acute abnormality is seen. Reading Location: [facility] Chest CTA 09/24/24 10:30 IMPRESSION: No evidence of pulmonary emboli. Findings suggestive of scarring at the lung bases as well as in the right middle lobe. No focal infiltrate is seen. One or more dose reduction techniques were used (e.g., Automated exposure control, adjustment of the mA and/or kV according to patient size, use of iterative reconstruction technique). Reading Location: [facility] Management Discussion w/another healthcare provider: Hospitalist (Dr Aranda) Discharge Plan Dx/Rx/DC Orders Clinical Impression: Aspiration into airway, Hypoxia, Altered mental state Disposition Disposition: Acute Care Hospital [facility] Discharge Date/Time: 09/24/24 14:08
[2024-09-24] MEDS: 0.9% Normal Saline (1000mL) 1,000 ML 999 ML IV (09:17)
[2024-09-24 09:20] LABS: Mucous, Urine 0 SEEN /hpf (<or=2+)
[2024-09-24 09:25] LABS: Color, Urine Yellow (Yellow); Glucose, Dipstick Normal (Normal); Ketone-Dipstick Negative (Negative); Leukocyte Esterase-Dipstick 25 /ul (Negative); Nitrite-Dipstick Negative (Negative); Occult Blood-Urine 250 /ul (Negative); Protein-Dipstick 30 mg/dl (Negative); Specific Gravity, Urine 1.015 (1.002-1.030); Urine Bilirubin Dipstick Negative (Negative); Urine Clarity Clear (Clear); Urine Urobilinogen Normal (Normal)
[2024-09-24 09:36] LABS: Absolute Lymphocyte Count 0.22 X10^3/uL (0.83-4.51); Absolute Neutrophil Count 3.3 X10^3/uL (2.0-7.7); Basophil# 0.01 X10^3/uL; Basophil% 0.3 % (0-1); Hemoglobin 9.9 g/dL (13.0-16.5); Lymphocyte # 0.22 X10^3/ul (0.83-4.51); Lymphocyte % 5.7 % (19-41); Mean Corp Hgb Conc 35.4 g/dL (32-36); Mean Corpuscular Hgb 31.6 pg (27.0-32.0); Mean Corpuscular Volume 89.5 fL (80-94); Mean Platelet Vol. 8.6 fl (6.2-12.0); Monocyte# 0.31 X10^3/uL; NRBC Flagged by Analyzer 0 % (0-5); Neutrophil # 3.34 X10^3/uL (2.7-7.7); Neutrophil % 85.7 % (47-70); POSITIVE DIFFERENTIAL YES; Platelet Count 118 K/mm3 (150-450); RBC Distribution Width CV 13.5 % (11.6-14.6); RBC Distribution Width SD 43.8 fl (35.1-43.9); Red Blood Count 3.13 M/mm3 (4.6-6.2); White Blood Count 3.9 K/mm3 (4.4-11.0)
--- NOTE | 2024-09-24 09:40 | RAD_ITS ---
PROCEDURE: CHEST 1 VIEW (PORTABLE) REASON FOR EXAM: Cough fever and hypoxia. Confusion. TECHNIQUE: A portable chest radiograph was obtained. COMPARISON: Comparison is made with prior study dated January 02, 2024. FINDINGS: EKG electrodes are seen The heart size is normal. Prior midline sternotomy. The mediastinal contour is unremarkable. Stable mild elevation of the right hemidiaphragm. The lungs are clear. Degenerative changes are identified within the thoracic spine. RAD/Chest 1 View (Portable) IMPRESSION: Stable examination. No acute abnormality is seen. Reading Location: [id number]
[2024-09-24 10:04] LABS: Red Blood Cells-Urine 10-25 SEEN /hpf (0-5); White Blood Cells 5-10 SEEN /hpf (0-5)
[2024-09-24 10:06] LABS: Bacteria RARE /hpf (None Seen); Squamous Epithelial Cells - UA 0-5 SEEN /hpf (0-5)
[2024-09-24 10:24] LABS: ALB/GLOB Ratio 2.1 RATIO (0.9-2.4); AST(SGOT) 17 U/L (<=37); Alanine Aminotransfer ALT/SGPT 10 U/L (<=46); Albumin, Serum 2.3 g/dL (3.4-4.8); Alkaline Phosphatase 40 U/L (40-129); Anion Gap 9 (5-15); BUN 14 mg/dL (4-19); BUN/Creat Ratio 16.7 RATIO (10-20); Carbon Dioxide 13.2 mmol/L (22.0-29.0); Chloride 123 mmol/L (96-108); Creatinine, Serum 0.85 mg/dL (0.70-1.20); EST Glomerular Filtration Rate 86 (>60); Estimated Creatinine Clearance 67.99 ml/min; Globulin 1.1 g/dL (2.2-4.2); Glucose 90 mg/dL (70-99); Potassium 2.1 mmol/L (3.3-5.1); Protein, Total 3.5 g/dL (5.9-8.4); Sodium Level 144 mmol/L (133-145); Total Bilirubin 0.85 mg/dL (0.00-1.30)
--- NOTE | 2024-09-24 10:30 | CT_ITS ---
PROCEDURE: CTA CHEST W/WO CONTRAST REASON FOR EXAM: Choking episode last night. Now presents with fever and confusion. TECHNIQUE: CTA imaging of the chest with intravenous contrast. 3D reconstructions. CONTRAST: 100 cc of Isovue-300 was injected intravenously. COMPARISON: Comparison is made with prior chest radiograph done earlier in the day. FINDINGS: Hardware: None. Lymph nodes: No mediastinal hilar or axillary lymphadenopathy. Heart: Prior midline sternotomy. Coronary artery calcification. RV/LV Diameter Ratio: N/A Thoracic Aorta: No thoracic aortic aneurysm or dissection. Pulmonary Vessels: No evidence of acute pulmonary emboli through the major subsegmental branches. Most Proximal Level of Embolus (if embolus present): No evidence of pulmonary emboli. Lungs and Airways: Small rounded alveolar opacities in the right middle lobe. Mild scarring at the lung apices more prominent on the right lung base. Mild degree of bronchiectasis. Mild scarring at the left lung base as well with bronchiectasis. No focal infiltrate is seen. Pleura: No pleural effusion. No pneumothorax. Upper Abdomen: Visualized portions of the upper abdominal viscera are unremarkable. Bones: Degenerative changes of the thoracic spine. CT/CTA Chest W/WO Contrast IMPRESSION: No evidence of pulmonary emboli. Findings suggestive of scarring at the lung bases as well as in the right middl e lobe. No focal infiltrate is seen. One or more dose reduction techniques were used (e.g., Automated exposure contr ol, adjustment of the mA and/or kV according to patient size, use of iterative reconstruction technique). Reading Location: [facility]
[2024-09-24 10:32] LABS: International Normalized Ratio 1.1; Partial Thromboplast Time 23.6 Seconds (24.1-36.2); Prothrombin Time (Protime)PT. 14.9 SECONDS (11.7-14.9)
[2024-09-24 10:47] LABS: Lactic Acid 1.9 mmol/L (0.0-2.0)
[2024-09-24] MEDS: Ampicillin/Sulbactam 3 GM in 0.9% Normal Saline (100mL MB+) 100 ML IV ×2 (11:11→21:04)
[2024-09-24 11:55] LABS: Magnesium 0.9 mg/dL (1.5-2.2)
[2024-09-24 12:33] LABS: Anion Gap 12 (5-15); BUN 21 mg/dL (4-19); BUN/Creat Ratio 13.8 RATIO (10-20); Calcium 8.2 mg/dL (7.6-11.0); Carbon Dioxide 19.9 mmol/L (22.0-29.0); Chloride 108 mmol/L (96-108); Creatinine, Serum 1.54 mg/dL (0.70-1.20); EST Glomerular Filtration Rate 44 (>60); Estimated Creatinine Clearance 37.53 ml/min; Glucose 111 mg/dL (70-99); Potassium 3.6 mmol/L (3.3-5.1); Sodium Level 140 mmol/L (133-145)
[2024-09-24 13:19] LABS: Magnesium 1.5 mg/dL (1.5-2.2)
[2024-09-24] MEDS: Ipratropium/Albuterol Sulfate 3 ML AMPUL.NEB INHALATION (13:51)
--- NOTE | 2024-09-24 16:43 | HP.PCM.HOS_ITS ---
HPI - General General Date of Admission: 09/24/24 Date of Service: 09/24/24 Chief Complaint: Fever, confusion HPI Narrative COLLEEN HILL, is a 84 M who presents to the emergency room at [facility] for evaluation of confusion and elevated temperature this morning at home. He was seen last night at the emergency room at [facility] after he choked on some food, symptoms however resolved, his had stated that he was having some vomiting prior to the resolution of his symptoms. Upon returning home however, patient developed a cough, confusion and fever and the stated that he was unsteady on his feet. On examination, the patient was noted to be hypoxic at 86% on room air, he maintained a pulse ox in the low 90s with 2 L of nasal cannula oxygen however. Labs obtained in the emergency room showed a white blood cell count of 3.9, hemoglobin was 9.9, chemistry profile showed a creatinine of 1.54 and a BUN of 21, chest x-ray showed no acute abnormality, CTA of the chest showed no evidence of pulmonary emboli there were findings suggestive of scarring at the lung bases as well as in the right middle lobe. No focal infiltrate was seen. Patient will be placed in observation status on MedSurg 3, he will be seen by speech therapy, patient was given Unasyn in the emergency room and this will be continued on MedSur. Patient will receive aerosol treatments. [facility] Medical History Wears glasses Wears partial dentures Alcohol use Thyroid disease High cholesterol Former smoker History of echocardiogram History of stress test Cardiology follow-up encounter History of heart attack Pure hypercholesterolemia Essential hypertension Bladder cancer Hyperlipidemia Hypertension Atherosclerotic heart disease of [place] coronary artery without angina pectoris Home Medications ?Medication ?Instructions ?Recorded ?Last Taken ?Type atorvastatin 40 mg tablet 40 mg PO QHS #90 tabs 08/14/23 Rx acetaminophen 325 mg tablet 650 mg (2 x 325 mg) PO Q4H PRN PRN 11/23/21 Unknown Rx (Tylenol) Pain 1-10 Or Fever #0 tabs nitroglycerin 0.4 mg sublingual 0.4 mg sublingual Q5-1 5M 12/18/23 Unknown History tablet ramipril 5 mg capsule 5 mg PO QDAY 12/18/23 History aspirin 81 mg tablet,delayed 81 mg PO DAILY 03/26/24 U nknown History release (Adult Low Dose Aspirin) levothyroxine 100 mcg tablet 100 mcg PO MOTUWETHFRSA 0 03/26/24 Unknown History Allergy/AdvReac Type Severity Reaction Status Date / Time No Known Allergies Allergy Verified 09/24/24 08:29 Family History Father CAD (coronary artery disease) Myocardial infarction, Onset Age: 56 Grandmother Heart disease Uncle Heart disease Surgical History History of left heart catheterization (~12/2023) History of robot-assisted laparoscopic radical prostatectomy (~02/18/24) Hx of right cataract extraction Hx of left cataract extraction History of esophagogastroduodenoscopy (EGD) Hx of bladder repair surgery History of cardiac catheterization History of appendectomy History of cystoscopy Postsurgical percutaneous transluminal coronary angioplasty (PTCA) status (~09/07/01) Presence of stent in coronary artery (~06/26/18) Presence of aortocoronary bypass graft (~10/23/00) Social History Smoking Status: Former smoker how long ago did patient quit smokin years ago alcohol intake: current alcohol intake frequency: 0-2 drinks per day Alcohol type: beer substance use type: does not use caffeine: Yes Type: carbonated beverages Number of servings: 2 ROS Constitutional Constitutional: Reports fever(s); Denies anorexia, change in weight, chills, fatigue, night sweats or weakness Eyes Eyes: Denies blurry vision, change in vision, discharge from eye(s) or eye pain Cardiovascular Cardiovascular: Denies chest pain, claudication, dyspnea on exertion, edema or palpitations Respiratory/Chest Respiratory/Chest: Reports cough; Denies hemoptysis, shortness of breath at rest or shortness of breath with exertion Gastrointestinal Gastrointestinal: Denies abdominal pain, constipation, diarrhea, hematemesis, hematochezia, melena, nausea or vomiting Genitourinary Genitourinary: Denies dysuria, hematuria, urinary frequency, urinary hesitancy, urinary incontinence or urinary urgency Musculoskeletal Musculoskeletal: Denies back pain, joint pain, joint stiffness, joint swelling, myalgias or neck pain Neurologic Neurologic: Reports confusion; Denies abnormal gait, abnormal speech, dizziness, focal weakness, headache(s), loss of vision, numbness, other visual disturbances, paresthesias, syncope or tingling Psychiatric Psychiatric: Denies anxiety, cognitive impairment, depression, irritability, mood swings or suicidal ideation Endocrine Endocrinology: Denies change in body appearance, cold intolerance, excessive sweating, heat intolerance, polydipsia or polyuria Hematologic/Lymphatic Hematologic/Lymphatic: Denies none, anemia, easy bleeding, easy bruising or lymphadenopathy Allergic/Immunologic Allergic/Immunologic: Denies rhinitis, urticaria, eczemia or asthma Vital Signs Vital Signs Vital Signs: 09/24/24 08:23 09/24/24 08:27 09/24/24 09:05 Temperature 99.2 F H 99.2 F H Temperature Source Oral Oral Pulse Rate 101 H 102 H Respiratory Rate 20 H 31 H Respiratory Effort Respiratory Depth Respiratory Pattern Blood Pressure 142/65 H 142/65 H Blood Pressure Mean 90 90 Blood Pressure Source Blood Pressure Position Blood Pressure Location Pulse Ox 91 89 96 Oxygen Delivery Method Room Air Nasal Cannula Nasal Cannula Oxygen Flow Rate (L/min) 2 3 09/24/24 09:27 09/24/24 09:29 09/24/24 10:28 Temperature 98.2 F 98.3 F Temperature Source Oral Oral Pulse Rate 93 93 88 Respiratory Rate 16 16 20 H Respiratory Effort Respiratory Depth Respiratory Pattern Blood Pressure 147/67 H 159/66 H 151/67 H Blood Pressure Mean 93 97 95 Blood Pressure Source Blood Pressure Position Blood Pressure Location Pulse Ox 96 96 98 Oxygen Delivery Method Nasal Cannula Nasal Cannula Nasal Cannula Oxygen Flow Rate (L/min) 3 3 3 09/24/24 11:00 09/24/24 11:30 09/24/24 12:00 Temperature 98.9 F 98.4 F Temperature Source Oral Oral Pulse Rate 99 99 83 Respiratory Rate 19 H 16 16 Respiratory Effort Respiratory Depth Respiratory Pattern Blood Pressure 157/81 H 157/81 H 131/63 H Blood Pressure Mean 106 106 85 Blood Pressure Source Blood Pressure Position Blood Pressure Location Pulse Ox 95 94 98 Oxygen Delivery Method Nasal Cannula Nasal Cannula Room Air Oxygen Flow Rate (L/min) 3 3 09/24/24 13:00 09/24/24 13:52 09/24/24 14:00 Temperature 98.0 F 97.9 F Temperature Source Oral Oral Pulse Rate 97 87 72 Respiratory Rate 16 20 H 17 Respiratory Effort Respiratory Depth Respiratory Pattern Normal Blood Pressure 142/95 H 138/72 H Blood Pressure Mean 110 94 Blood Pressure Source Blood Pressure Position Blood Pressure Location Pulse Ox 94 95 Oxygen Delivery Method Nasal Cannula Nasal Cannula Oxygen Flow Rate (L/min) 3 3 09/24/24 14:00 09/24/24 14:07 09/24/24 15:03 Temperature 98.1 F 97.9 F Temperature Source Oral Pulse Rate 90 72 Respiratory Rate 20 H 17 20 H Respiratory Effort Normal Respiratory Depth Normal Respiratory Pattern Blood Pressure 148/73 H 138/72 H Blood Pressure Mean 98 94 Blood Pressure Source Monitor Blood Pressure Position Semi-Fowlers Blood Pressure Location Right Arm Pulse Ox 96 95 Oxygen Delivery Method Nasal Cannula Nasal Cannula Oxygen Flow Rate (L/min) 2 2 Weight Weight: 68.2 kg Body Mass Index (BMI) 21.5 Physical Exam Const alert, no apparent distress, average body habitus and healthy appearing General Appearance: cooperative, well kempt and well developed Orientation / Consciousness: awake, oriented to person and oriented to place HEENT normocephalic, head/scalp atraumatic, hearing grossly normal bilaterally and moist oral mucous membranes Eyes PERRL, EOMs intact bilaterally and conjunctivae normal Neck supple, no JVD, thyroid normal and no carotid bruits General: trachea midline Resp normal respiratory effort, no retractions, no use of accessory muscles and clear to auscultation bilaterally Auscultation: Negative for rales, rhonchi or wheezes Cardio regular rate, regular rhythm, S1 normal heart sound, S2 normal heart sound, no murmurs, no rub and no gallops GI normal to inspection, nondistended, normoactive bowel sounds, soft to palpation, non-tender and non-distended Extremity no clubbing, cyanosis or edema Skin no rashes or lesions noted General Skin Exam: no breakdown Neuro CN's II-XII intact bilaterally, moves all extremities, no focal motor deficits and no sensory deficits noted Sensorium / Orientation: awake, alert, oriented to person and oriented to place Speech: speech normal Psych affect normal Results Lab / Micro Data 09/24/24 09:24 09/24/24 11:45 Labs: Laboratory Results - last 24 hr 09/24/24 09:12: Urine Color Yellow, Urine Clarity Clear, Urine pH 5.0, Ur Specific [place] 1.015, Urine Protein 30 H, Urine Glucose (UA) Normal, Urine Ketones Negative, Urine Occult Blood 250 H, Urine Nitrite Negative, Urine Bilirubin Negative, Urine Urobilinogen Normal, Ur Leukocyte Esterase 25 H, Urine RBC 10-25 SEEN, Urine WBC 5-10 SEEN, Ur Squamous Epith Cells 0-5 SEEN, Urine Bacteria RARE, Urine Mucus 0 SEEN 09/24/24 09:24: WBC 3.9 L, RBC 3.13 L, Hgb 9.9 L, Hct 28.0 L, MCV 89.5, MCH 31.6, MCHC 35.4, RDW Std Deviation 43.8, RDW Coeff of [place] 13.5, Plt Count 118 L, MPV 8.6, Immature Gran % (Auto) 0.300, Neut % (Auto) 85.7 H, Lymph % (Auto) 5.7 L, [place] % (Auto) 8.0, Eos % (Auto) 0.0, Baso % (Auto) 0.3, Absolute Neuts (auto) 3.3, Absolute Lymphs (auto) 0.22 L, Nucleated RBC % 0, PT Cancelled, INR Cancelled, APTT Cancelled, Sodium 144 09/24/24 09:24: Sodium Cancelled, Potassium 2.1 L* 09/24/24 09:24: Potassium Cancelled, Chloride Direct 123 H 09/24/24 09:24: Chloride Direct Cancelled, Carbon Dioxide 13.2 L 09/24/24 09:24: Carbon Dioxide Cancelled, Anion Gap 9 09/24/24 09:24: Anion Gap Cancelled, BUN 14 09/24/24 09:24: BUN Cancelled, Creatinine 0.85 09/24/24 09:24: Creatinine Cancelled, Estim Creat Clear Calc 67.99, Est GFR (MDRD) Non-Af 86 09/24/24 09:24: Est GFR (MDRD) Non-Af Cancelled, BUN/Creatinine Ratio 16.7 09/24/24 09:24: BUN/Creatinine Ratio Cancelled, Glucose 90 09/24/24 09:24: Glucose Cancelled, Lactic Acid 1.9, Calcium 5.0 L* 09/24/24 09:24: Calcium Cancelled, Magnesium 0.9 L*, Total Bilirubin 0.85, AST 17, ALT 10, Alkaline Phosphatase 40, Total Protein 3.5 L, Albumin 2.3 L, G lobulin 1.1 L, Albumin/Globulin Ratio 2.1 09/24/24 10:10: PT 14.9, INR 1.1, APTT 23.6 L 09/24/24 11:45: Sodium 140, Potassium 3.6, Chloride Direct 108, Carbon Dioxide 19.9 L, Anion Gap 12, BUN 21 H, Creatinine 1.54 H, Estim Creat Clear Calc 37.53, Est GFR (MDRD) Non-Af 44 L, BUN/Creatinine Ratio 13.8, Glucose 111 H, Calcium 8.2, Magnesium 1.5 Micro: Microbiology 09/24/24 09:24 Mucosa - Nose SARS-CoV-2, Influenza & RSV (PCR) - Final Imaging Radiology Impression Chest X-Ray 09/24/24 09:40 IMPRESSION: Stable examination. No acute abnormality is seen. Reading Location: [id number] Chest CTA 09/24/24 10:30 IMPRESSION: No evidence of pulmonary emboli. Findings suggestive of scarring at the lung bases as well as in the right middle lobe. No focal infiltrate is seen. One or more dose reduction techniques were used (e.g., Automated exposure control, adjustment of the mA and/or kV according to patient size, use of iterative reconstruction technique). Reading Location: [facility] Assessment & Plan Assessment/Plan (1) Aspiration into airway: PLAN: Plan 1. Acute aspiration-patient will be placed in observation status on MedSur 3, he will be placed on IV antibiotics and aerosol treatments, he will be seen by speech therapy. #2 hypoxia secondary to #1-pulse ox will be monitored, oxygen will be weaned if possible #3 confusion-etiology unclear-patient is alert and answers simple questions to this examiner today #4 past history of esophageal stenosis-patient may need to see gastroenterology and undergo an EGD during this admission. Total clinical time spent by myself addressing the patient's medical issues, reviewing all the data, and collaborating with patient's care team: 75 minutes Charges/Coding Visit Charges Inpatient E&M: 84832 Init Hosp L3
--- NOTE | 2024-09-24 17:05 | EGD_PTH ---
PATIENT: COLLEEN HILL LOC: MS3 U#:[id number] AGE/SX: 84/M ROOM: [facility] [place] RE09/24/[address]: Dr. Suresh Aranda DO : 1940 BED: 1 DIS: 09/25/2024 SPEC #: [id number] RECD: 09/27/24 11:21 STATUS: VESTA LANGSTON #: [id number] KALEE: 09/24/24 17:[address]: Tomas Khan DEPT: SURGICAL PATHOLOGY RECD BY: Raúl Pedro ENTERED: 09/27/24 11:51 SP TYPE: EGD BIOPSY BK DR: MD Dr. Suresh Dejesus DO Tissues: Esophagus, NOS Procedures: Surgery Specimen Level IV HEADER OPERATION: EGD with biopsies and ablation PRE-OP DIAGNOSIS: Aspiration into airway TISSUE SUBMITTED: Distal esophagus biopsy MICROSCOPIC DIAGNOSIS Esophagus, distal, biopsy: * Squamous mucosa with reactive changes. * Columnar mucosa with squamous metaplasia, negative for goblet cell metaplasia. MICROSCOPIC DESCRIPTION Slides are reviewed. GROSS DESCRIPTION Received in fixative is one container labeled with the patient's name and designated Distal esophagus biopsy. The specimen consists of one irregular fragment of [place] soft tissue that measures 1.7 x 0.3 x 0.2 cm. The specimen is totally submitted in one cassette. 09/27/2024 TC: CPT:44013
--- NOTE | 2024-09-24 17:24 | NURSING ---
report called to ac
[2024-09-24] MEDS: 0.9% Saline Lock 10 ML Syringe IV ×2 (17:48→21:07)
--- NOTE | 2024-09-24 18:33 | CON.PCM.GI_ITS ---
HPI Consult Data Date of Consult: 09/24/24 HPI Narrative Reason for Consultation: Foreign body HPI Narrative: COLLEEN HILL, is a 84-year-old male with past medical history of hypertension hyperlipidemia and hypothyroidism as well as previous esophageal stricture requiring dilation roughly 2 years ago. Patient states this evening he ate a apple freighter and then a part of an orange and he states after this he felt that the food was stuck in his upper throat and he had bouts of vomiting and then afterwards could not swallow food or water. He denies any shortness of breath but states as he feels the food is stuck he presents for evaluation. [facility] Medical History Wears glasses Wears partial dentures Alcohol use Thyroid disease High cholesterol Former smoker History of echocardiogram History of stress test Cardiology follow-up encounter History of heart attack Pure hypercholesterolemia Essential hypertension Bladder cancer Hyperlipidemia Hypertension Atherosclerotic heart disease of [place] coronary artery without angina pectoris Home Medications ?Medication ?Instructions ?Recorded ?Last Taken ?Type atorvastatin 40 mg tablet 40 mg PO QHS #90 tabs 08/14/23 Rx acetaminophen 325 mg tablet 650 mg (2 x 325 mg) PO Q4H PRN PRN 11/23/21 Unknown Rx (Tylenol) Pain 1-10 Or Fever #0 tabs nitroglycerin 0.4 mg sublingual 0.4 mg sublingual Q5-1 5M 12/18/23 Unknown History tablet ramipril 5 mg capsule 5 mg PO QDAY 12/18/23 History aspirin 81 mg tablet,delayed 81 mg PO DAILY 03/26/24 U nknown History release (Adult Low Dose Aspirin) levothyroxine 100 mcg tablet 100 mcg PO MOTUWETHFRSA 0 03/26/24 Unknown History Allergy/AdvReac Type Severity Reaction Status Date / Time No Known Allergies Allergy Verified 09/24/24 08:29 Family History Father CAD (coronary artery disease) Myocardial infarction, Onset Age: 56 Grandmother Heart disease Uncle Heart disease Surgical History History of left heart catheterization (~12/2023) History of robot-assisted laparoscopic radical prostatectomy (~02/18/24) Hx of right cataract extraction Hx of left cataract extraction History of esophagogastroduodenoscopy (EGD) Hx of bladder repair surgery History of cardiac catheterization History of appendectomy History of cystoscopy Postsurgical percutaneous transluminal coronary angioplasty (PTCA) status (~09/07/01) Presence of stent in coronary artery (~06/26/18) Presence of aortocoronary bypass graft (~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) Social History Smoking Status: Former smoker how long ago did patient quit smokin years ago alcohol intake: current alcohol intake frequency: 0-2 drinks per day Alcohol type: beer substance use type: does not use caffeine: Yes Type: carbonated beverages Number of servings: 2 ROS Constitutional Constitutional: Denies fatigue, fever(s), poor appetite, weight gain or weight loss Gastrointestinal Gastrointestinal: Denies belching, bloating, change in bowel habits, change in stool character, chewing difficulty, coffee ground emesis, constipation, cramping, diarrhea, dyspepsia, dysphagia, early satiety, excessive flatus, fecal incontinence, heartburn, hematemesis, hematochezia, hemorrhoids, loose stools, melena, nausea, odynophagia, rectal bleeding, tenesmus, vomiting or weight changes Physical Exam Const alert, oriented x3, no apparent distress and healthy appearing General Appearance: cooperative GI normal to inspection, nondistended, normoactive bowel sounds, soft to palpation, non-tender and non-distended Percussion: normal to percussion Rectal Exam: deferred Lab / Micro Data 09/24/24 09:24 09/24/24 11:45 Labs: Laboratory Results - last 24 hr 09/24/24 09:12: Urine Color Yellow, Urine Clarity Clear, Urine pH 5.0, Ur Specific [place] 1.015, Urine Protein 30 H, Urine Glucose (UA) Normal, Urine Ketones Negative, Urine Occult Blood 250 H, Urine Nitrite Negative, Urine Bilirubin Negative, Urine Urobilinogen Normal, Ur Leukocyte Esterase 25 H, Urine RBC 10-25 SEEN, Urine WBC 5-10 SEEN, Ur Squamous Epith Cells 0-5 SEEN, Urine Bacteria RARE, Urine Mucus 0 SEEN 09/24/24 09:24: WBC 3.9 L, RBC 3.13 L, Hgb 9.9 L, Hct 28.0 L, MCV 89.5, MCH 31.6, MCHC 35.4, RDW Std Deviation 43.8, RDW Coeff of [place] 13.5, Plt Count 118 L, MPV 8.6, Immature Gran % (Auto) 0.300, Neut % (Auto) 85.7 H, Lymph % (Auto) 5.7 L, [place] % (Auto) 8.0, Eos % (Auto) 0.0, Baso % (Auto) 0.3, Absolute Neuts (auto) 3.3, Absolute Lymphs (auto) 0.22 L, Nucleated RBC % 0, PT Cancelled, INR Cancelled, APTT Cancelled, Sodium 144 09/24/24 09:24: Sodium Cancelled, Potassium 2.1 L* 09/24/24 09:24: Potassium Cancelled, Chloride Direct 123 H 09/24/24 09:24: Chloride Direct Cancelled, Carbon Dioxide 13.2 L 09/24/24 09:24: Carbon Dioxide Cancelled, Anion Gap 9 09/24/24 09:24: Anion Gap Cancelled, BUN 14 09/24/24 09:24: BUN Cancelled, Creatinine 0.85 09/24/24 09:24: Creatinine Cancelled, Estim Creat Clear Calc 67.99, Est GFR (MDRD) Non-Af 86 09/24/24 09:24: Est GFR (MDRD) Non-Af Cancelled, BUN/Creatinine Ratio 16.7 09/24/24 09:24: BUN/Creatinine Ratio Cancelled, Glucose 90 09/24/24 09:24: Glucose Cancelled, Lactic Acid 1.9, Calcium 5.0 L* 09/24/24 09:24: Calcium Cancelled, Magnesium 0.9 L*, Total Bilirubin 0.85, AST 17, ALT 10, Alkaline Phosphatase 40, Total Protein 3.5 L, Albumin 2.3 L, G lobulin 1.1 L, Albumin/Globulin Ratio 2.1 09/24/24 10:10: PT 14.9, INR 1.1, APTT 23.6 L 09/24/24 11:45: Sodium 140, Potassium 3.6, Chloride Direct 108, Carbon Dioxide 19.9 L, Anion Gap 12, BUN 21 H, Creatinine 1.54 H, Estim Creat Clear Calc 37.53, Est GFR (MDRD) Non-Af 44 L, BUN/Creatinine Ratio 13.8, Glucose 111 H, Calcium 8.2, Magnesium 1.5, TSH 2.500 Micro: Microbiology 09/24/24 09:24 Mucosa - Nose SARS-CoV-2, Influenza & RSV (PCR) - Final Imaging Radiology Impression Chest X-Ray 09/24/24 09:40 IMPRESSION: Stable examination. No acute abnormality is seen. Reading Location: [id number] Chest CTA 09/24/24 10:30 IMPRESSION: No evidence of pulmonary emboli. Findings suggestive of scarring at the lung bases as well as in the right middle lobe. No focal infiltrate is seen. One or more dose reduction techniques were used (e.g., Automated exposure control, adjustment of the mA and/or kV according to patient size, use of iterative reconstruction technique). Reading Location: [id number] Assessment & Plan Assessment/Plan (1) Aspiration into airway: PLAN: Plan 1. 84-year-old gentleman comes in with was believed to be a food bolus and developed acute aspiration. He has a history of esophageal stricture requiring dilation. He will need undergo emergent upper endoscopy. He was explained alternatives, risk and benefits include not withstanding bleeding, infection, sepsis, perforation, need for return to . He will have an ASA of 3. Charges/Coding Visit Charges Inpatient E&M: 16709 Init Hosp L2
--- NOTE | 2024-09-24 18:37 | PRE.ANES_ITS ---
ASA Classification* ASA Classification ASA Classification: 3 and E Assessment & Plan Anesthesia* Anesthesia Assessment Anesthesia Assessment: Discussed sedation and/or anesthesia options, risks, benefits, and alternatives with patient/parents/legal guardian/POA. Questions invited. The patient/parents/legal guardian/POA seems to understand and agrees to proceed with anesthesia plan. Reviewed the physical assessment, medical history, allergy history and patient home medications list prior to surgery/procedure/anesthetic and documented any changes. Performed airway and anesthesia risk assessments. Anesthesia Type Anesthesia Type: MAC Anesthesia Focused Assessment* Temperature: 97.9 F Pulse Rate: 72 Blood Pressure: 138/72 Respiratory Rate: 20 Pulse Ox: 95 Oxygen Flow Rate (L/min): 2 Airway Assessment Mouth opens: >3 cm Mallampati Score: II Focused Labs Anesthesia Preop lab: CBC WBC 3.9 K/mm3 (4.4-11.0) L 09/24/24 09:24 09/24/24 RBC 3.13 M/mm3 (4.6-6.2) L 09/24/24 09:24 09/24/24 Hgb 9.9 g/dL (13.0-16.5) L 09/24/24 09:24 09/24/24 Hct 28.0 % (40-54) L 09/24/24 09:24 09/24/24 Plt Count 118 K/mm3 (150-450) L 09/24/24 09:24 09/24/24 CHEMISTRY Potassium 3.6 mmol/L (3.3-5.1) 09/24/24 11:45 09/24/24 Sodium 140 mmol/L (133-145) 09/24/24 11:45 09/24/24 Magnesium 1.5 mg/dL (1.5-2.2) 09/24/24 11:45 09/24/24 BUN 21 mg/dL (4-19) H 09/24/24 11:45 09/24/24 Creatinine 1.54 mg/dL (0.70-1.20) H 09/24/24 11:45 Glucose 111 mg/dL (70-99) H 09/24/24 11:45 09/24/24 TSH 2.500 uIU/mL (0.300-4.200) 09/24/24 11:45 02/03/21 COAG PT 14.9 SECONDS (11.7-14.9) 09/24/24 10:10 Pre-Assessment Diagnosis/Proposed Procedure Planned Operative Procedure(s): egd removal of fb Anesthesia History Anesthesia History - employment program representative: Anesthesia History - employment program representative Hx Hospitalization No 02/13/24 13:17 Any Problems With Anesthesia No 09/24/24 17:03 Cholinesterase deficiency No 09/24/24 17:03 You/Your Family Experience No 09/24/24 17:03 fever (hyperthermia) with Relationship Recent Exposure to Contagious No 09/24/24 17:03 Disease Does patient have nerve No 09/24/24 17:03 stimulator Patient instructed to have No 09/24/24 17:03 device shut off --Does patient have Pacemaker or ICD? When Was Last Pacemaker Check QUESTION #4 FULL TEXT: You/Your Family Experience fever (hyperthermia) with Anesthesia Last Oral Intake Last Oral intake: Last Oral Intake NPO since Meds taken in AM with sips of water? Meds patient instructed to take am of surgery PONV PONV - employment program representative: PONV - employment program representative Female HX of Motion Sickness HX of N/V After Surgery Non-Smoker Duration of Surgery greater than 60 minutes Number of Risk Factors PONV Score Height & Weight Height & Weight: Anesthesia: Height & Weight Height 5 ft 10 in 09/24/24 14:43 Weight: 68.2 kg 09/24/24 14:43 Body Mass Index (BMI) 21.5 09/24/24 14:43 Respiratory Assessment Respiratory Assessment - employment program representative: Respiratory Tract Infection Hx - employment program representative Hx Respiratory Tract Infection No 09/24/24 17:03 STOP Sleep Apnea STOP Sleep Apnea - employment program representative: STOP Sleep Apnea - employment program representative Hx Hypertension Yes: CONTROLLED WITH MED 09/24/24 14:43 Hx Sleep Apnea No 09/24/24 14:43 CPAP No 09/24/24 14:43 BIPAP Do you snore loudly (louder No 09/24/24 14:43 than talking or can be heard Do you often feel tired/ No 09/24/24 14:43 fatigued/ sleepy during daytime? Has anyone observed you stop No 09/24/24 14:43 breathing during sleep? STOP Results Negative 09/24/24 14:43 QUESTION #5 FULL TEXT : Do you snore loudly (louder than talking or can be heard through closed doors)? 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 Specify any problems Hx of Preganancy in last 3 N/A 09/24/24 14:43 Months Nurse Filling Out Transfusion LDOTTERER 09/24/24 14:43 & Questions: Date: 09/24/24 09/24/24 14:43 Time: 14:47 09/24/24 14:43 Patient unable to answer at this time (ie. confused, unrespo /Reproduction History /Reproductive History - employment program representative: /Reproductive Hx- employment program representative Hx Now No 09/24/24 17:03 Gestational Age (in weeks): EDC: Hx Hx Para Hx Section SAB No 09/24/24 17:03 Active Medications Active Medications: Current Medications Generic Name Dose Route Start Last Admin Trade Name Freq PRN Reason Stop Dose Admin Acetaminophen 650 mg 09/24/24 15:52 Acetaminophen 325 Mg Tablet PO Q4H PRN PRN Pain 1-10 Or Fever Albuterol Sulfate 2.5 mg 09/24/24 15:52 Albuterol 2.5 Mg/3 Ml Vial.Neb. INHALATION Q2H PRN PRN SOB &/OR WHEEZING Albuterol/Ipratropium 3 ml 09/24/24 15:52 Ipratropium/Albuterol Sulfate 3 Ml Ampul.Neb INHALATION Q6H.RT JAY Aspirin 81 mg 09/25/24 08:00 Aspirin E.C. 81 Mg Tablet PO BREAKFAST [facility] Atorvastatin Calcium 40 mg 09/24/24 22:00 Atorvastatin Calcium 40 Mg Tablet PO QHS [facility] Heparin Sodium (Porcine) 5,000 unit 09/24/24 22:00 Heparin Injection (Vial) 5,000 Unit/Ml Vial SC Q12 [facility] Ampicillin Sodium/Sulbactam 112 mls @ 150 mls/hr 09/24/24 22:00 Sodium 3 gm/ Sodium Chloride IV Q8 [facility] Levothyroxine Sodium 100 mcg 09/25/24 06:00 Levothyroxine 100 Mcg Tablet PO MOTUWETHFRSA [facility] Nitroglycerin 0.4 mg 09/24/24 15:52 Nitroglycerin (Inpatient Use) 0.4 Mg Tab.Subl SL Q5M PRN CARDIAC/CHEST PAIN Ondansetron HCl 4 mg 09/24/24 15:52 Ondansetron 4 Mg/2 Ml Vial IV Q8H PRN PRN NAUSEA/VOMITING Ramipril 5 mg 09/25/24 10:00 Ramipril 5 Mg Capsule PO DAILY [facility] Protocol Sodium Chloride 10 - 40 ml 09/24/24 13:58 09/24/24 17:48 0.9% Saline Lock 10 Ml Syringe IV 10 ml UD PRN Administration SALINE FLUSH PFSH Medical History Wears glasses Wears partial dentures Alcohol use Thyroid disease High cholesterol Former smoker History of echocardiogram History of stress test Cardiology follow-up encounter History of heart attack Pure hypercholesterolemia Essential hypertension Bladder cancer Hyperlipidemia Hypertension Atherosclerotic heart disease of [place] coronary artery without angina pectoris Home Medications ?Medication ?Instructions ?Recorded ?Last Taken ?Type atorvastatin 40 mg tablet 40 mg PO QHS #90 tabs 08/14/23 Rx acetaminophen 325 mg tablet 650 mg (2 x 325 mg) PO Q4H PRN PRN 11/23/21 Unknown Rx (Tylenol) Pain 1-10 Or Fever #0 tabs nitroglycerin 0.4 mg sublingual 0.4 mg sublingual Q5-1 5M 12/18/23 Unknown History tablet ramipril 5 mg capsule 5 mg PO QDAY 12/18/23 History aspirin 81 mg tablet,delayed 81 mg PO DAILY 03/26/24 U nknown History release (Adult Low Dose Aspirin) levothyroxine 100 mcg tablet 100 mcg PO MOTUWETHFRSA 0 03/26/24 Unknown History Allergy/AdvReac Type Severity Reaction Status Date / Time No Known Allergies Allergy Verified 09/24/24 08:29 Family History Father CAD (coronary artery disease) Myocardial infarction, Onset Age: 56 Grandmother Heart disease Uncle Heart disease Surgical History History of left heart catheterization (~12/2023) History of robot-assisted laparoscopic radical prostatectomy (~02/18/24) Hx of right cataract extraction Hx of left cataract extraction History of esophagogastroduodenoscopy (EGD) Hx of bladder repair surgery History of cardiac catheterization History of appendectomy History of cystoscopy Postsurgical percutaneous transluminal coronary angioplasty (PTCA) status (~09/07/01) Presence of stent in coronary artery (~06/26/18) Presence of aortocoronary bypass graft (~10/23/00) Social History Smoking Status: Former smoker how long ago did patient quit smokin years ago alcohol intake: current alcohol intake frequency: 0-2 drinks per day Alcohol type: beer substance use type: does not use caffeine: Yes Type: carbonated beverages Number of servings: 2 Review of Systems (Anesthesia) ROS Narrative System reviewed and no additional complaints, except as documented.
--- NOTE | 2024-09-24 19:07 | OP.EGD_ITS ---
Patient Name: Ruddy Randolph Procedure Date: 09/24/2024 6:34 PM Date of : 1940 Age: 84 Procedure: Upper GI endoscopy Indications: Dysphagia, Suspected ingestion of foreign body Providers: Tomas Khan DO Medicines: Monitored Anesthesia Care Patient Profile: This is an 84 year old male. Refer to note in patient chart for documentation of history and physical. Patient has symptoms of dysphagia with solids and acute vomiting. Complications: No immediate complications. Procedure: Pre-Anesthesia Assessment: - Prior to the procedure, a History and Physical was performed, and patient medications and allergies were reviewed. The patient is competent. The risks and benefits of the procedure and the sedation options and risks were discussed with the patient. All questions were answered and informed consent was obtained. Patient identification and proposed procedure were verified in the pre-procedure area. Mental Status Examination: alert and oriented. Airway Examination: normal oropharyngeal airway and neck mobility. Respiratory Examination: clear to auscultation. CV Examination: normal. Prophylactic Antibiotics: The patient does not require prophylactic antibiotics. Prior Anticoagulants: The patient has taken no anticoagulant or antiplatelet agents except for NSAID medication. ASA Grade Assessment: III - A patient with severe systemic disease. After reviewing the risks and benefits, the patient was deemed in satisfactory condition to undergo the procedure. The anesthesia plan was to use monitored anesthesia care (MAC). Immediately prior to administration of medications, the patient was re-assessed for adequacy to receive sedatives. The heart rate, respiratory rate, oxygen saturations, blood pressure, adequacy of pulmonary ventilation, and response to care were monitored throughout the procedure. The physical status of the patient was re-assessed after the procedure. After obtaining informed consent, the endoscope was passed under direct vision. Throughout the procedure, the patient's blood pressure, pulse, and oxygen saturations were monitored continuously. The Endoscope was introduced through the mouth, and advanced to the second part of duodenum. The upper GI endoscopy was accomplished without difficulty. The patient tolerated the procedure well. Scope In: 6:51:21 PM Scope Out: 6:58:11 PM Total Procedure Duration Time 0 hours 6 minutes 50 seconds Findings: Food was found in the distal esophagus. Removal was accomplished with a regular forceps. A mild Schatzki ring was found at the gastroesophageal junction. Biopsies were taken with a cold forceps for histology. Verification of patient identification for the specimen was done. Estimated blood loss was minimal. Coagulation for tissue destruction using argon plasma at 0.3 liters/minute and 20 rios was successful. Estimated blood loss was minimal. A small hiatal hernia was present. No gross lesions were noted in the duodenal bulb. Impression: - Food in the distal esophagus. Removal was successful. - Mild Schatzki ring. Biopsied. Treated with argon plasma coagulation (APC). - Small hiatal hernia. - No gross lesions in the duodenal bulb. Recommendation: - Return patient to hospital [facility] for ongoing care. - Full liquid diet. - Continue present medications. -PPI drip for 24 hours Procedure Code(s): --- Professional --- 06967, Esophagogastroduodenoscopy, flexible, transoral; with ablation of tumor(s), polyp(s), or other lesion(s) (includes pre- and post-dilation and guide wire passage, when performed) 82602, 51, Esophagogastroduodenoscopy, flexible, transoral; with removal of foreign body(s) 65185, 59, Esophagogastroduodenoscopy, flexible, transoral; with biopsy, single or multiple CPT copyright 2021 [employer]. All rights reserved. The codes documented in this report are preliminary and upon tool sharpener review may be revised to meet current compliance requirements. Tomas Khan DO 09/24/2024 7:06:42 PM This report has been signed electronically. Number of Addenda: 0 Note Initiated On: 09/24/2024 6:34 PM
--- NOTE | 2024-09-24 19:07 | OP.CCLET_ITS ---
09/24/2024 Robson Guzman [address] [place] [address] Re : Upper GI endoscopy procedure for Ruddy Randolph Dear Dr. Guzman This procedure was performed on Tuesday, September 24, 2024. My impressions and recommendations are as follows: Impressions : - Food in the distal esophagus. Removal was successful. - Mild Schatzki ring. Biopsied. Treated with argon plasma coagulation (APC). - Small hiatal hernia. - No gross lesions in the duodenal bulb. Recommendations : - Return patient to hospital [facility] for ongoing care. - Full liquid diet. - Continue present medications. -PPI drip for 24 hours My findings are described in the full procedure note, which is enclosed. If I can be of further assistance, please feel free to contact me at . Sincerely, Tomas Khan, 09/24/2024 7:06:42 PM This report has been signed electronically.
--- NOTE | 2024-09-24 19:08 | PCM.POST.ANE ---
Anesthesia: Postop Eval I Current Vital Signs Temperature: 98.7 F Pulse Rate: 95 Blood Pressure: 121/83 Respiratory Rate: 18 Pulse Ox: 95 Assessment Airway patent: Yes Spontaneous unlabored respirations: Yes nausea: No Vomiting: No Anesthesia Complication: No Fluid Hydration Crystalloid volume administer (ml): 10 Total IV fluid infused: 10 Progress Note Anesthesia document: Postop Eval 1 completed: Yes
--- NOTE | 2024-09-24 19:10 | PCM.POSTANE2 ---
Anesthesia Postop Eval I Sum Postop Eval Completion status Anesthesia document: Postop Eval 1 completed: Yes Anesthesia Postop Eval I Summary Anesthesia Postop Eval I Summary: Anesthesia Postop Eval I: Assessment Summary Airway patent Yes 09/24/24 19:08 Spontaneous unlabored Yes 09/24/24 19:08 respirations Mental status nausea No 09/24/24 19:08 Vomiting No 09/24/24 19:08 Anesthesia Postop Eval I: Fluid Summary Crystalloid volume administer 10 09/24/24 19:08 (ml) Colloids volume administered ( ml) Blood Product volume administered (ml) Total IV fluid infused 10 09/24/24 19:08 Anesthesia Postop Eval I: Summary Notes Anesthesia Complication No 09/24/24 19:08 Anesthesia Complication Comment: Post-operative progress note Anesthesia: Postop Eval II Evaluation Mental status: Awake Pain Level: 0 nausea: No Vomiting: No
[2024-09-24] MEDS: Pantoprazole Sodium 80 MG in 0.9% Normal Saline (100mL Bag) 80 ML 10 MG CONT INF (21:03)
[2024-09-24] MEDS: Heparin Injection (Vial) 5,000 UNIT/ML VIAL 5000 UNIT SC (21:15)
[2024-09-24] MEDS: Atorvastatin Calcium 40 MG Tablet PO (21:15)
[2024-09-24] MEDS: 0.9% Normal Saline (100mL Bag) 100 ML 15 ML IV (22:09)
[2024-09-25] MEDS: Ipratropium/Albuterol Sulfate 3 ML AMPUL.NEB INHALATION ×2 (01:46→07:15)
[2024-09-25 01:47] VITALS: PULSE 83; RESP 18; O2SAT 93
[2024-09-25 02:00] VITALS: BP 134/64; PULSE 80; RESP 16; TEMP 36.6; O2SAT 96
[2024-09-25 05:36] LABS: Absolute Lymphocyte Count 1.14 X10^3/uL (0.83-4.51); Absolute Neutrophil Count 7.4 X10^3/uL (2.0-7.7); Basophil# 0.02 X10^3/uL; Basophil% 0.2 % (0-1); Eosinophil# 0.01 X10^3/uL; Eosinophils% 0.1 % (0-5); Hematocrit 30.4 % (40-54); Hemoglobin 10.8 g/dL (13.0-16.5); Lymphocyte # 1.14 X10^3/ul (0.83-4.51); Lymphocyte % 12.4 % (19-41); Mean Corp Hgb Conc 35.5 g/dL (32-36); Mean Corpuscular Hgb 31.9 pg (27.0-32.0); Mean Corpuscular Volume 89.7 fL (80-94); Mean Platelet Vol. 8.5 fl (6.2-12.0); Monocyte# 0.57 X10^3/uL; Monocyte% 6.2 % (0-10); NRBC Flagged by Analyzer 0 % (0-5); Neutrophil # 7.39 X10^3/uL (2.7-7.7); Neutrophil % 80.6 % (47-70); POSITIVE MORPHOLOGY YES; Platelet Count 153 K/mm3 (150-450); RBC Distribution Width CV 13.9 % (11.6-14.6); RBC Distribution Width SD 45.7 fl (35.1-43.9); Red Blood Count 3.39 M/mm3 (4.6-6.2); White Blood Count 9.2 K/mm3 (4.4-11.0)
[2024-09-25 05:52] LABS: Differential Indicated SCAN CRITERIA MET
[2024-09-25 06:01] LABS: Anion Gap 11 (5-15); BUN 26 mg/dL (4-19); BUN/Creat Ratio 15.1 RATIO (10-20); Calcium 8.5 mg/dL (7.6-11.0); Carbon Dioxide 20.5 mmol/L (22.0-29.0); Chloride 108 mmol/L (96-108); EST Glomerular Filtration Rate 40 (>60); Estimated Creatinine Clearance 31.76 ml/min; Glucose 96 mg/dL (70-99); Potassium 4.3 mmol/L (3.3-5.1); Sodium Level 140 mmol/L (133-145)
[2024-09-25] MEDS: Ampicillin/Sulbactam 3 GM in 0.9% Normal Saline (100mL MB+) 100 ML IV (06:02)
--- NOTE | 2024-09-25 06:45 | RAD_ITS ---
PROCEDURE: CHEST PA AND LATERAL REASON FOR EXAM: Hypoxia TECHNIQUE: Frontal and lateral views of the chest. COMPARISON: 09/24/2024 FINDINGS: The heart size is normal. The mediastinal contour is unremarkable. The lungs are clear. Degenerative changes are identified within the thoracic spine. Median sternotomy wires. RAD/Chest PA and Lateral IMPRESSION: No radiographic evidence of acute cardiopulmonary disease Reading Location: [facility]
[2024-09-25 07:15] VITALS: PULSE 85; RESP 17; O2SAT 95
[2024-09-25 07:45] LABS: Differential Comment SCANNED
[2024-09-25 09:00] VITALS: BP 158/77; PULSE 92; RESP 16; TEMP 37.6; O2SAT 94
[2024-09-25] MEDS: Aspirin E.C. 81 MG Tablet PO (10:38)
[2024-09-25] MEDS: Pantoprazole Sodium 80 MG in 0.9% Normal Saline (100mL Bag) 80 ML 10 MG CONT INF (10:38)
[2024-09-25] MEDS: Heparin Injection (Vial) 5,000 UNIT/ML VIAL 5000 UNIT SC (10:39)
[2024-09-25] MEDS: Ramipril 5 MG Capsule PO (10:45)
--- NOTE | 2024-09-25 11:46 | CASEMGMT ---
SHANTEL GREER NOTE: Per Dr Aranda, pt will need OP ST. Script received. RN CM to room. Introduced self and role. Pt resting in bed, @ bedside, son, Roosevelt, also in room visiting. Pt lives w/. Uses no DME. Not on home O2. They do have a pulse ox. Home O2 ambulatory testing to be completed prior to discharge. RNBobby, made aware. Discussed ST eval and recommendations for OP ST. Questions answered and they state would like to take pt to OP ST. Script given to and made aware they can take pt to any location of choice. They state will most likely will go to [facility] card provided. Family can transport pt to [facility]. They would like to get any new Rx's from [facility] retail pharmacy before they close today. Dr Allen made aware. Pt and family deny having any further discharge needs/concerns. Intro role of CM to patient and POP form explained re: Observation status for treatment of aspiration and hypoxia.? Explained hospitalization will be paid per?his insurance policy for Outpatient billing?and condition will continue to be evaluated for Inpt necessity. Also let pt and family know that [facility] sends paper in the billing packet with their phone number if questions arise. Pt and family verbalizes understanding and do not have further questions. ?Form signed by , copy made and placed in chart, and original given to . Sandra ALVARADO RN, CM
--- NOTE | 2024-09-25 11:50 | DCINST_ITS ---
Discharge Instructions Diet Discharge Diet: No restrictions DC O2, CPAP, BIPAP needs Home O2 Discharge instructions: No Dressing / Incision Discharge Activity: Return to Normal Activity Weight Bearing Status: Weight bearing as tolerated Follow Up Care Test Results: Test results from this visit will be discussed in further detail at your follow- up appointment, if applicable. Discharge Plan Admission Admit Date/Time: 09/24/24 13:02 Primary Reason for Your Visit: Aspiration Attending Provider: Suresh Aranda Primary Care Provider: Tl Guzman Discharge Orders/Prescriptions Prescriptions: New pantoprazole [Protonix] 40 mg tablet,delayed release (DR/EC) 40 mg PO DAILY Qty: 30 0RF Continued aspirin [Adult Low Dose Aspirin] 81 mg tablet,delayed release (DR/EC) 81 mg PO DAILY levothyroxine 100 mcg tablet 100 mcg PO MOTUWETHFRSA ramipril 5 mg capsule 5 mg PO QDAY nitroglycerin 0.4 mg tablet, sublingual 0.4 mg sublingual Q5-15M acetaminophen [Tylenol] 325 mg Tablet 650 mg PO Q4H PRN PRN (Reason: Pain 1-10 Or Fever) Qty: 0 0RF atorvastatin 40 mg tablet 40 mg PO QHS Qty: 90 3RF Referrals / Follow Up: Tl Guzman MD [Primary Care Provider] - In 1 Week ([address] Dr[address] Guzman recheck your BMP (lab)) FriendTomas DO [Med Staff - Active Staff] - Within 1 Month (Call for follow- up appointment within the next 30 days) Disposition Disposition (needs filled in before D/C Order can be placed): Home, Self Care
--- NOTE | 2024-09-25 12:09 | DS.PCM_ITS ---
Providers Date of Admission: 09/24/24 Date of Discharge: 09/25/24 Primary Care Physician: Dr. Tl Guzman MD Consultations 09/24/24 17:15 Consult: Gastroenterology Routine Consulting Provider: [facility] Reason for Consult: Possible esophageal stricture EMERGENT Consult: No MD Notified: Yes Date Notified: 09/24/24 Time Notified: 17:15 Method of Notification: Verbal Reason For Visit: ASPIRATION, HYPOXIA Diagnosis Discharge Diagnosis (1) Aspiration into airway: Status: Acute Code(s): T17.908A - Unspecified foreign body in respiratory tract, part unspecified causing other injury, initial encounter Plan 1. Acute aspiration-patient will be placed in observation status on MedSurg 3, he will be placed on IV antibiotics and aerosol treatments, he will be seen by speech therapy. #2 hypoxia secondary to #1-pulse ox will be monitored, oxygen will be weaned if possible #3 confusion-etiology unclear-patient is alert and answers simple questions to this examiner today #4 past history of esophageal stenosis-patient may need to see gastroenterology and undergo an EGD during this admission. Total clinical time spent by myself addressing the patient's medical issues, reviewing all the data, and collaborating with patient's care team: 75 minutes Medications at Discharge Home Medications atorvastatin 40 mg tablet 40 mg PO QHS #90 tabs 05/31/19 acetaminophen 325 mg tablet (Tylenol) 650 mg (2 x 325 mg) PO Q4H PRN PRN Pain 1- 10 Or Fever #0 tabs 11/23/21 nitroglycerin 0.4 mg sublingual tablet 0.4 mg sublingual Q5-15M 12/18/23 ramipril 5 mg capsule 5 mg PO QDAY 12/18/23 aspirin 81 mg tablet,delayed release (Adult Low Dose Aspirin) 81 mg PO DAILY 03/26/24 levothyroxine 100 mcg tablet 100 mcg PO MOTUWETHFRSA 03/26/24 pantoprazole 40 mg tablet,delayed release (Protonix) 40 mg PO DAILY #30 tabs 09/25/24 Hospital Course Operations None Procedures EGD Summary of Care Provided Minutes Spent on Discharge: 31 Hospital Course: This 84-year-old white male presented to the emergency room [facility] for evaluation of confusion and elevated temperature at home. He had been seen the night before in the emergency room at [facility] after he had choked on some food, however, his symptoms resolved and he was discharged home from the emergency room. On his second visit to the ER, he was noted to be hypoxic with an 86% pulse ox on room air, labs obtained in the emergency room showed a white blood cell count of 3.9 and chemistry profile showed a creatinine 1.54, chest x-ray showed no acute abnormality, and CT of the chest showed no evidence of pulmonary emboli, there were findings suggestive of scarring at the lung bases as well as in the right middle lobe-no focal infiltrate was seen. Patient was placed in observation status for aspiration, he was placed on IV antibiotics and aerosol treatments, within 2 hours the patient was weaned to room air, he was seen in consultation by gastroenterology and underwent an EGD that same day which showed evidence of a Schatzki's ring and hiatal hernia. There was also noted to be food in the distal esophagus. He was seen by speech therapy who recommended follow-up outpatient speech therapy and I signed a prescription regarding this. On 09/25/2024, patient was seen and examined: On examination he appeared in good health and spirits. Vital signs as documented. Skin warm and dry and without overt rashes. Neck without JVD, neck was supple, trachea midline, thyroid was normal. Lungs clear bilaterally, normal air movement was noted. Heart exam notable for regular rhythm, normal sounds and absence of murmurs, rubs or gallops. Abdomen unremarkable and without evidence of organomegaly, masses, or abdominal aortic enlargement. Bowel sounds are present, abdomen is not distended. Extremities nonedematous, no cyanosis was noted, no clubbing was noted. Neuro: Cranial nerves II through XII are grossly intact, no focal motor deficits were noted, sensation to light touch and pinprick intact, motor exam 5/5 throughout. Psych: Patient is alert and oriented x3, he does not appear anxious or depressed, he does not appear agitated. On 09/25/2024, patient was seen and examined and felt to be in stable condition for discharge home. This examiner did not feel he required outpatient antibiotics at the time of discharge. Weight / BMI Weight Weight: 68.2 kg Body Mass Index (BMI) 21.5 ABG / Lab / Microbiology Data 09/25/24 04:55 09/25/24 04:55 Laboratory: Laboratory Results - last 24 hr 09/24/24 11:45: Sodium 140, Potassium 3.6, Chloride Direct 108, Carbon Dioxide 19.9 L, Anion Gap 12, BUN 21 H, Creatinine 1.54 H, Estim Creat Clear Calc 37.53, Est GFR (MDRD) Non-Af 44 L, BUN/Creatinine Ratio 13.8, Glucose 111 H, Calcium 8.2, Magnesium 1.5, TSH 2.500 09/25/24 04:55: WBC 9.2, RBC 3.39 L, Hgb 10.8 L, Hct 30.4 L, MCV 89.7, MCH 31.9, MCHC 35.5, RDW Std Deviation 45.7 H, RDW Coeff of Daron 13.9, Plt Count 153, MPV 8.5, Immature Gran % (Auto) 0.500, Neut % (Auto) 80.6 H, Lymph % (Auto) 12.4 L, Tucker % (Auto) 6.2, Eos % (Auto) 0.1, Baso % (Auto) 0.2, Absolute Neuts (auto) 7.4, Absolute Lymphs (auto) 1.14, Nucleated RBC % 0, Differential Comment SCANNED, Sodium 140, Potassium 4.3, Chloride Direct 108, Carbon Dioxide 20.5 L, Anion Gap 11, BUN 26 H, Creatinine 1.70 H, Estim Creat Clear Calc 31.76, Est GFR (MDRD) Non-Af 40 L, BUN/Creatinine Ratio 15.1, Glucose 96, Calcium 8.5 Microbiology: Microbiology 09/24/24 09:12 Urine, Clean Catch Urine Culture - Preliminary Culture exhibits no growth. 09/24/24 09:24 Mucosa - Nose SARS-CoV-2, Influenza & RSV (PCR) - Final D/C Instructions Discharge Diet: No restrictions Weight Bearing Status: Weight bearing as tolerated DC O2, CPAP, BIPAP Needs Home O2 Discharge instructions: No Meaningful Use Info Meaningful Use Meaningful Use Diagnoses (Choose all that apply): None applicable Ischemic Stroke Statin Dosing Therapy Reference: STATIN DOSE THERAPY REFERENCE: * Patients > 75 years receive moderate or high dose statin therapy. * Patients 75 years or YOUNGER should receive HIGH intensity statin dose unless contraindicated. You will be required to document reason for non-treatment if statin daily dose does not meet guidelines. HIGH DOSE STATIN THERAPY DAILY Atorvastatin > than or = to 40 mg Rosuvastatin > than or = to 20 mg Amlodipine + Atorvastatin > than or = to 2.5/40 mg Ezetimibe + Simvastatin 10/80 mg Simvastatin 80mg Discharge Plan Admission Admit Date/Time: 09/24/24 13:02 Primary Reason for Your Visit: Aspiration Attending Provider: Suresh Aranda Primary Care Provider: Tl Gzuman Discharge Orders/Prescriptions Prescriptions: New pantoprazole [Protonix] 40 mg tablet,delayed release (DR/EC) 40 mg PO DAILY Qty: 30 0RF Continued aspirin [Adult Low Dose Aspirin] 81 mg tablet,delayed release (DR/EC) 81 mg PO DAILY levothyroxine 100 mcg tablet 100 mcg PO MOTUWETHFRSA ramipril 5 mg capsule 5 mg PO QDAY nitroglycerin 0.4 mg tablet, sublingual 0.4 mg sublingual Q5-15M acetaminophen [Tylenol] 325 mg Tablet 650 mg PO Q4H PRN PRN (Reason: Pain 1-10 Or Fever) Qty: 0 0RF atorvastatin 40 mg tablet 40 mg PO QHS Qty: 90 3RF Referrals / Follow Up: Tl Guzman MD [Primary Care Provider] - In 1 Week (Have Dr. Guzman recheck your BMP (lab)) Friend,DO Tomas [Med Staff - Active Staff] - Within 1 Month (Call for follow- up appointment within the next 30 days) Disposition Disposition (needs filled in before D/C Order can be placed): Home, Self Care Charges/Coding Visit Charges Inpatient E&M: 37433 Disch Hosp >30min
[2024-09-25 12:16] VITALS: O2SAT 89; O2SAT 91
== END 2024-09-25 12:48 | disposition home or self-care (01) ==
LOC: ED 11:57 → MS3 13:35
PROVIDERS: Anesthesiology; Internal Medicine Gastroenterology; Admitting Provider Internal Medicine; Emergency Provider Emergency Medicine; PCP Family Medicine; Visit Provider Internal Medicine
PROC: 0DJ08ZZ Inspection of Upper Intestinal Tract, Via Natural or Artificial Opening Endoscopic (ICD-10-PCS; CPT 43235; principal; 2024-09-24 17:00)
DX: T17.928A Food in respiratory tract, part unspecified causing other injury, initial encounter (principal); K44.9 Diaphragmatic hernia without obstruction or gangrene; R41.82 Altered mental status, unspecified; Z87.891 Personal history of nicotine dependence; I25.10 Atherosclerotic heart disease of native coronary artery without angina pectoris; Z79.82 Long term (current) use of aspirin; I10 Essential (primary) hypertension; R09.02 Hypoxemia; R11.10 Vomiting, unspecified; E78.00 Pure hypercholesterolemia, unspecified; Z79.890 Hormone replacement therapy; K22.2 Esophageal obstruction; E03.9 Hypothyroidism, unspecified; Z79.899 Other long term (current) drug therapy; W44.F3XA Food entering into or through a natural orifice, initial encounter; I45.10 Unspecified right bundle-branch block; R94.31 Abnormal electrocardiogram [ECG] [EKG]; R42 Dizziness and giddiness; R50.9 Fever, unspecified; I25.2 Old myocardial infarction; Z82.49 Family history of ischemic heart disease and other diseases of the circulatory system; R94.2 Abnormal results of pulmonary function studies
CPT/HCPCS: 43247; 43239; 43270; 36415; 71045; 71046; 71275; 80048; 80053; 81001; 83605; 83735; 84443; 85025; 85610; 85730; 87040; 87086; 87631; 88305; 92610; 93005; 94640; 96361; 96365; 96366; 96368; 96372; 99221; 99285; Q9967; A4216; G0378; J0295

== ENCOUNTER → 2024-10-05 | Outpatient (CLI) | payer MEDICARE, SELFPAY ==
[2024-10-05 16:01] LABS: Hematocrit 34.7 % (40-54); Hemoglobin 11.9 g/dL (13.0-16.5); Mean Corp Hgb Conc 34.3 g/dL (32-36); Mean Corpuscular Hgb 31.5 pg (27.0-32.0); Mean Corpuscular Volume 91.8 fL (80-94); Mean Platelet Vol. 8.3 fl (6.2-12.0); Platelet Count 263 K/mm3 (150-450); RBC Distribution Width CV 13.8 % (11.6-14.6); RBC Distribution Width SD 46.4 fl (35.1-43.9); Red Blood Count 3.78 M/mm3 (4.6-6.2); White Blood Count 6.7 K/mm3 (4.4-11.0)
[2024-10-05 18:58] LABS: ALB/GLOB Ratio 1.5 RATIO (0.9-2.4); AST(SGOT) 27 U/L (<=37); Alanine Aminotransfer ALT/SGPT 17 U/L (<=46); Albumin, Serum 3.9 g/dL (3.4-4.8); Alkaline Phosphatase 76 U/L (40-129); Anion Gap 12 (5-15); BUN 15 mg/dL (4-19); BUN/Creat Ratio 10.2 RATIO (10-20); Calcium,Total 8.7 mg/dL (7.6-11.0); Carbon Dioxide 19.8 mmol/L (21.0-32.0); Chloride 109 mmol/L (98-108); Cholesterol 102 mg/dL (<=200); EST Glomerular Filtration Rate 46 (>60); Globulin 2.5 g/dL (2.2-4.2); Glucose 86 mg/dL (70-99); High Density Lipoprotein 45 mg/dL; Low Density Lipoprotein Calc. 44 mg/dL; Protein, Total 6.3 g/dL (5.9-8.4); Sodium Level 141 mmol/L (133-145); Total Bilirubin 1.09 mg/dL (0.00-1.30); Triglycerides 64 mg/dL; Very Low Density Lipoprotein 13 mg/dL (5-40); cholesterol:hdl ratio screen 2.28
== END | disposition home or self-care (01) ==
LOC: MFPLAB 11:04
PROVIDERS: PCP Family Medicine; Referring Provider Family Medicine; Visit Provider Family Medicine
DX: I25.10 Atherosclerotic heart disease of native coronary artery without angina pectoris (principal); E03.9 Hypothyroidism, unspecified
CPT/HCPCS: 36415; 80053; 80061; 84443; 85027

== ENCOUNTER → 2024-10-26 | Outpatient (CLI) | payer MEDICARE, SELFPAY ==
[2024-10-26 10:19] LABS: PSA,Total- Diagnostic 0.19 ng/mL (0.00-4.00)
== END | disposition home or self-care (01) ==
PROVIDERS: PCP Family Medicine; Referring Provider Nurse Practitioner; Visit Provider Nurse Practitioner
DX: C61 Malignant neoplasm of prostate (principal)
CPT/HCPCS: 36415; 84153

== ENCOUNTER → 2024-11-03 | Outpatient (CLI) | payer MEDICARE, SELFPAY ==
[2024-11-03 11:03] LABS: Anion Gap 11 (5-15); BUN 20 mg/dL (4-19); BUN/Creat Ratio 12.9 RATIO (10-20); Calcium,Total 9.1 mg/dL (7.6-11.0); Carbon Dioxide 21.9 mmol/L (21.0-32.0); Chloride 107 mmol/L (98-108); Creatinine, Serum 1.54 mg/dL (0.70-1.20); EST Glomerular Filtration Rate 44 (>60); Glucose 77 mg/dL (70-99); Potassium 4.1 mmol/L (3.3-5.1); Sodium Level 140 mmol/L (133-145)
== END | disposition home or self-care (01) ==
LOC: MFPLAB 08:54
PROVIDERS: PCP Family Medicine; Referring Provider Family Medicine; Visit Provider Family Medicine
DX: E03.9 Hypothyroidism, unspecified (principal); N17.9 Acute kidney failure, unspecified
CPT/HCPCS: 36415; 80048; 84443

== ENCOUNTER → 2025-06-22 | Outpatient (CLI) | payer MEDICARE, SELFPAY ==
--- OUTSIDE RECORDS SUMMARY | 2025-06-22 09:53 | XMS RPT_ITS | CCD ---
Author Organization [facility] Care Team Providers Care Animal Husbandry Professor Name Role Phone FABIOLA HARRIS Attending Dr. Robson Poole Primary Care Provider [phone] Dr. Robson Guzman Referring Provider Bailey EVENT MARKETING MANAGER, EVENT MARKETING MANAGER-Kenzie Gill Attending Provider Dr. Austin Rivera Emergency Provider Dr. Krystian Lantigua Admit Provider Dr. Krystian Lantigua Attending Provider Dr. Krystian Lantigua Other Provider Dr. Robson Guzman Primary Care Provider Dr. Allen Nelson Attending Provider Dr. Erasto Murphy Referring Provider Dr. Robson Guzman Primary Care Provider Dr. Allen Nelson Attending Provider Dr. Erasto Murphy Referring Provider Dr. Robson Guzman Referring Provider Dr. Nilesh Wiggins Attending Provider Dr. Robson Guzman Other Provider Dr. Tl Guzman MD Primary Care Provider Dr. Austin Rivera DO Attending Provider Dr. Austin Rivera DO Emergency Provider Dr. Tate Meneses DO Emergency Provider Tereletsky DO, Dr. Prince Admit Provider Tereletsky DO, Dr. Prince Attending Provider Tereletsky DO, Dr. Prince Other Provider Tereletsky DO, Dr. Prince Referring Provider Friend DO, Dr. Marin Attending Provider Thomas TRIVEDI, Dr. Boothe Attending Provider Thomas TRIVEDI, Dr. Boothe Referring Provider [phone] [place], [place] Attending Provider [phone] [place], [place] Referring Provider Allen Nelson Attending Unavailable Ranney, Tl Referring Unavailable Ranney, Christopher Primary Care Unavailable Ranney, Christopher Primary Care Unavailable Austin Rivera Attending Unavailable TereletskySuresh Admitting Unavailable Ranney, Christopher Primary Care Unavailable Tereletsky, Suresh Attending Unavailable Ranney, Christopher Primary Care Unavailable Ranney, Christophrae Attending Unavailable Ranney, Christopher Referring Unavailable Ranney, Christopher Primary Care Unavailable Ranney, Christhayley Attending Unavailable Ranney, Christtylerer Attending Unavailable Ranney, Christopher Referring Unavailable Ranney, Christopher Primary Care Unavailable [place], [place] Attending Unavailable [place], [place] Referring Unavailable Ranney, Christopher Primary Care Unavailable Ranney, Christopher Primary Care Unavailable TereletskySuresh Admitting Unavailable TereletskySuresh Consulting Unavailable TereletskySuresh Attending Unavailable TereletskySuresh Referring Unavailable Tomas Khan Attending Unavailable Ranney, Christopher Primary Care Unavailable FriendTomas Attending Unavailable Ranney, Christopher Referring Unavailable Thomas TRIVEDI, Dr. Boothe Primary Care Physicia n Dr. Tl Guzman MD Referring Provider Omar TRIVEDI, Dr. Villa Attending Physician Medications Current Medications Medication Drug Class(es) Dates Sig (Normalized) Sig (Original) acetaminophen 325 mg oral tablet (13 sources) Start: 11-23-2021 take 1-10 tablets by mouth every four hours as needed for pain Acetaminophen (Tylenol) 325 mg Tablet Active 650 mg PO EVERY 4 HOURS NEEDED as needed for Pain 1-10 Or Fever 0 November 22, 2021 11:00pm Complies with drug therapy Start: 11-23-2021 take 2 tablets by mo uth every four hours as needed Acetaminophen (Tylenol) 325 mg Tablet Active 650 MG PO EVERY 4 HOURS NEEDED 0 November 23, 2021 12:00am aspirin 81 mg delayed release oral tablet (20 sources) Platelet Aggregation Inhibitor, Nonsteroidal Anti-inflammatory Drug Start: 03-26-2024 Aspirin (Adult Lo w Dose Aspirin) 81 mg tablet,delayed release (DR/EC) Active 81 mg PO DAILY March 25, 2024 11:00pm Complies with drug therapy Start: 03-18-2018 End: 02-18-2024 take 1 tablet by mouth once daily Aspirin 81 MG tablet Discontinued 81 mg PO DAILY@0800 0 June 27, 2018 12:00am February 18, 2024 6:25am Start: 11-03-2016 End: 06-18-2017 take 1 tablet by mouth once daily Aspirin 81 MG Tab.Chew Discontinued 81 mg PO DAILY@0800 November 02, 2016 11:00pm June 18, 2017 12:35pm levothyroxine sodium 0.1 mg oral tablet (18 sources) l-Thyroxine Start: 03-26-2024 End: 05-19-2025 take 1 tablet by mouth once daily Levothyroxine 100 mcg tablet Active 100 ug PO daily May 19, 2025 8:06am Complies with drug therapy Start: 02-24-2016 End: 03-26-2024 Levothyroxine 50 MCG tablet Discontinued 100 ug PO MOTUWETHFRSA February 23, 2016 11:00pm March 26, 2024 9:49am Start: 02-24-2016 Levothyroxine Active 100 MCG PO MOTUWETHFRSA February 24, 2016 12:00am nitroglycerin 0.4 mg sublingual tablet (4 sources) Nitrate Vasodilator Start: 12-18-2023 Nitroglycerin 0.4 mg tablet, sublingual Active 0.4 mg SL every 5 to 15 minutes December 17, 2023 11:00pm Complies with drug therapy pantoprazole 40 mg delayed release oral tablet (20 sources) Proton Pump Inhibitor Start: 09-25-2024 End: 10-25-2024 take 1 tablet by mouth once daily Pantoprazole (Protonix) 40 mg tablet,delayed release (DR/EC) Active 40 mg PO DAILY 30 October 25, 2024 7:20am Complies with drug therapy Start: 02-04-2023 End: 08-04-2023 take 1 tablet by mouth twice daily Pantoprazole 40 mg tablet,delayed release (DR/EC) Discontinued 40 mg PO TWICE A DAY 60 February 04, 2023 1:34pm August 04, 2023 2:28pm Start: 01-15-2023 End: 02-04-2023 take 1 tablet by mouth once daily Pantoprazole 40 mg tablet,delayed release (DR/EC) Discontinued 40 mg PO DAILY 60 January 14, 2023 11:00pm February 04, 2023 1:35pm ramipril 5 mg oral capsule (20 sources) Angiotensin Converting Enzyme Inhibitor Start: 12-18-2023 take 1 capsule by mouth once daily Ramipril 5 mg capsule Active 5 mg PO daily December 17, 2023 11:00pm Complies with drug therapy Start: 01-16-2023 End: 12-18-2023 take 1 capsule by mouth once daily Ramipril 10 mg capsule Discontinued 10 mg PO DAILY 90 May 27, 2023 10:13am December 18, 2023 10:38am Start: 06-27-2018 End: 01-16-2023 take 1 capsule by mouth twice daily Ramipril 10 mg capsule Discontinued 10 mg PO TWICE A DAY 180 July 01, 2022 12:46pm January 16, 2023 8:29am Start: 11-03-2016 End: 06-27-2018 take 1 capsule by mouth once daily Ramipril 10 MG capsule Discontinued 10 mg PO DAILY November 02, 2016 11:00pm June 27, 2018 9:17am tamsulosin hydrochloride 0.4 mg oral capsule (1 source) alpha-Adrenergic Eder Start: 08-20-2021 take 0.4 mg by mouth at bedtime Tamsulosin Active 0.4 MG PO AT BEDTIME August 20, 2021 10:07am Completed/Discontinued Medications Medication Drug Class(es) Dates Sig (Normalized) Sig (Original) acetaminophen 325 mg / HYDROcodone bitartrate 5 mg oral tablet (13 sources) Opioid Agonist Start: 06-18-2017 End: 03-18-2018 Hydrocodone-Acetami nophen 1 EACH tablet Discontinued 1 NMA PO EVERY 4 HOURS NEEDED as needed for Pain 14 June 18, 2017 12:32pm March 18, 2018 8:41am Start: 06-18-2017 End: 03-18-2018 Hydrocodone-Acetaminophen Di scontinued 1 EACH PO EVERY 4 HOURS NEEDED June 18, 2017 1:32pm March 18, 2018 9:41am amoxicillin 500 mg oral capsule (13 sources) Penicillin-class Antibacterial Start: 06-07-2019 End: 06-17-2019 take 2 capsules by mouth twice daily Amoxicillin 500 mg capsule Discontinued 1000 mg PO TWICE A DAY 40 10 June 07, 2019 12:00am June 16, 2019 12:00am June 17, 2019 12:07am Start: 06-07-2019 End: 06-17-2019 take 1000 mg by mouth twice daily Amoxicillin Discontinued 1000 MG PO TWICE A DAY 40 June 07, 2019 1:00am June 17, 2019 1:07am atorvastatin 40 mg oral tablet (20 sources) HMG-CoA Reductase Inhibitor Start: 06-27-2018 End: 05-31-2019 take 1 tablet by mouth at bedtime Atorvastatin 40 mg tablet Discontinued 40 mg PO AT BEDTIME 90 3 June 27, 2018 9:45am May 31, 2019 8:01am benzonatate 200 mg oral capsule (13 sources) Non-narcotic Antitussive Start: 06-07-2019 End: 10-04-2019 take 1 capsule by mouth three times daily as needed for cough Benzonatate 200 mg capsule Discontinued 200 mg PO THREE TIMES A DAY as needed for cough 20 June 07, 2019 12:00am October 04, 2019 8:14am cephalexin 500 mg oral capsule (13 sources) Cephalosporin Antibacterial Start: 01-14-2020 End: 04-06-2020 take 1 capsule by mouth every eight hours Cephalexin 500 MG capsule Discontinued 500 mg PO EVERY 8 HOURS 15 January 13, 2020 11:00pm April 06, 2020 7:26am ciprofloxacin 500 mg oral tablet (20 sources) Quinolone Antimicrobial Start: 02-18-2024 End: 03-26-2024 take 1 tablet by mouth twice daily Ciprofloxacin Hcl (Cipro) 500 mg tablet Discontinued 500 mg PO TWICE A DAY 10 0 February 17, 2024 11:00pm March 26, 2024 9:50am Start: 08-15-2023 End: 12-18-2023 take 1 tablet by mouth twice daily Ciprofloxacin Hcl (Cipro) 500 mg tablet Discontinued 500 mg PO TWICE A DAY 14 0 August 15, 2023 12:00am December 18, 2023 10:38am Start: 03-06-2022 End: 01-16-2023 take 1 tablet by mouth twice daily Ciprofloxacin Hcl (Cipro) 500 mg tablet Discontinued 500 mg PO TWICE A DAY 6 0 March 05, 2022 11:00pm January 16, 2023 8:02am Start: 06-18-2017 End: 03-18-2018 take 1 tablet by mouth twice daily Ciprofloxacin Hcl 500 MG tablet Discontinued 500 mg PO TWICE A DAY 14 0 June 18, 2017 12:00am March 18, 2018 8:41am clopidogrel 75 mg oral tablet (20 sources) [id number] Platelet Inhibitor Start: 04-06-2020 End: 04-06-2020 take 1 tablet by mouth once daily Clopidogrel (Plavix) 75 mg tablet Discontinued 75 mg PO DAILY April 05, 2020 11:00pm April 06, 2020 7:48am Start: 06-03-2019 End: 06-03-2019 take 1 tablet by mouth once daily Clopidogrel (Plavix) 75 mg tablet Discontinued 75 mg PO DAILY 90 June 03, 2019 12:00am June 03, 2019 2:05pm Start: 06-15-2018 End: 03-22-2019 take 1 tablet by mouth once daily Clopidogrel 75 mg tablet Discontinued 75 mg PO DAILY 90 July 01, 2018 8:40am March 22, 2019 7:36am desonide 0.5 mg/ml topical lotion (13 sources) Corticosteroid Start: 03-18-2018 End: 03-22-2019 Desonide 0.05 % lotion Discontinued 1 NMA TOPICAL TWICE A DAY as needed for skin March 17, 2018 11:00pm March 22, 2019 7:36am docusate sodium 100 mg oral capsule (4 sources) Start: 02-18-2024 End: 03-26-2024 take 1 capsule by mouth twice daily Docusate Sodium (Colace) 100 mg capsule Discontinued 100 mg PO TWICE A DAY 20 0 February 17, 2024 11:00pm March 26, 2024 9:50am 24 hr isosorbide mononitrate 30 mg extended release oral tablet (13 sources) Nitrate Vasodilator Start: 11-03-2016 End: 12-18-2023 take 1 tablet by mouth once daily, then take 1 tablet by mouth every twenty-four hours Isosorbide Mononitrate 30 MG tablet extended release 24 hr Discontinued 30 mg PO DAILY November 02, 2016 11:00pm December 18, 2023 10:38am 24 hr metoprolol succinate 50 mg extended release oral tablet (20 sources) beta-Adrenergic Eder Start: 11-06-2018 End: 03-17-2019 take 2 tablets by mouth every twenty-four hours at bedtime Metoprolol Succinate 50 mg tablet extended release 24 hr Discontinued 25 mg PO AT BEDTIME November 06, 2018 8:57am March 17, 2019 1:00pm Start: 11-06-2018 End: 03-17-2019 take 25 mg by mouth at bedtime Metoprolol Succinate Di scontinued 25 MG PO AT BEDTIME November 06, 2018 9:57am March 17, 2019 2:00pm Start: 11-03-2016 End: 11-06-2018 take 1 tablet by mouth every twenty-four hours at bedtime Metoprolol Succinate 50 MG tablet extended release 24 hr Discontinued 50 mg PO AT BEDTIME November 02, 2016 11:00pm November 06, 2018 8:57am 24 hr oxybutynin chloride 10 mg extended release oral tablet (9 sources) Cholinergic Muscarinic Antagonist Start: 01-16-2023 End: 12-18-2023 take 1 tablet by mouth every twenty-four hours at bedtime Oxybutynin Chloride 10 mg tablet extended release 24hr Discontinued 10 mg PO AT BEDTIME January 15, 2023 11:00pm December 18, 2023 10:38am Start: 01-16-2023 take 10 mg by mouth at bedtime Oxybutynin Chloride Active 10 MG PO AT BEDTIME January 16, 2023 12:00am oxyCODONE hydrochloride 10 mg oral tablet (4 sources) Opioid Agonist Start: 02-18-2024 End: 03-26-2024 take 1 tablet by mouth every six hours as needed for pain Oxycodone 10 mg tablet Discontinued 10 mg PO EVERY 6 HOURS as needed for pain 10 7 0 February 18, 2024 March 26, 2024 9:51am Bladder neck contracture Bladder-neck obstruction phenazopyridine hydrochloride 100 mg oral tablet (13 sources) Start: 06-18-2017 End: 03-18-2018 take 1 tablet by mouth twice daily Phenazopyridine 100 MG tablet Discontinued 100 mg PO TWICE A DAY 14 0 June 18, 2017 12:00am March 18, 2018 8:42am burning simvastatin 20 mg oral tablet (13 sources) HMG-CoA Reductase Inhibitor Start: 11-03-2016 End: 06-27-2018 take 1 tablet by mouth at bedtime Simvastatin 20 MG tablet Discontinued 20 mg PO AT BEDTIME November 02, 2016 11:00pm June 27, 2018 9:18am Problems Active Problems Problem Classification Problem Date Documented Da te Episodic/Chronic Appendicitis and other appendiceal conditions (15 sources) Acute appendicitis; Translations: [Unspecified acute appendicitis] Episodic Cancer of bladder (13 sources) Malignant tumor of urinary bladder; Translations: [Malignant neoplasm of bladder, unspecified] 01-14-2020 Chronic Cancer of prostate (1 source) Malignant neoplasm of prostate; Translations: [Malignant neoplasm of prostate] Onset: 10-28-2024 Chronic Chronic obstructive pulmonary disease and bronchiectasis (13 sources) Bronchitis; Translations: [Bronchitis, not specified as acute or chronic] 06-12-2019 Episodic Complication of device; implant or graft (4 sources) Complication of urinary catheter; Translations: [Unspecified complication of genitourinary prosthetic device, implant and graft, initial encounter] 02-28-2024 Episodic Coronary atherosclerosis and other heart disease (15 sources) Coronary atherosclerosis; Translations: [Atherosclerotic heart disease of [place] coronary artery without angina pectoris] Onset: 10-15-2024 Chronic Disorders of lipid metabolism (20 sources) Pure hypercholesterolemia ; Translations: [Pure hypercholesterolemia , unspecified] Chronic Essential hypertension (20 sources) Essential hypertension; Translations: [Essential (primary) hypertension] Chronic Comment on above: CONTROLLED ON MEDS Fluid and electrolyte disorders (13 sources) Dehydration; Translations: [Dehydration] 06-13-2019 Episodic Hyperplasia of prostate (4 sources) Benign prostatic hyperplasia; Translations: [Benign prostatic hyperplasia without lower urinary tract symptoms] 02-28-2024 Chronic Nonspecific chest pain (13 sources) Chest pain; Translations: [Chest pain, unspecified] 04-06-2020 Episodic Other circulatory disease (9 sources) Orthostatic hypotension; Translations: [Orthostatic hypotension] 2023 Episodic Other diseases of bladder and urethra (4 sources) Contracture of bladder neck; 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] 02-18-2024 Chronic Other gastrointestinal disorders (11 sources) Dysphagia; Translations: [Dysphagia, unspecified] 01-15-2023 Episodic Other injuries and conditions due to external causes (9 sources) Closed injury of head; Translations: [Unspecified injury of head, initial encounter] 2023 Episodic Other injuries and conditions due to external causes (7 sources) Aspiration into respiratory tract; Translations: [Unspecified foreign body in respiratory tract, part unspecified causing other injury, initial encounter] 10-02-2024 Episodic Other injuries and conditions due to external causes (4 sources) Obstruction of esophagus; Translations: [Food in esophagus causing other injury, initial encounter] 10-02-2024 Episodic Other lower respiratory disease (4 sources) Dyspnea on exertion; Translations: [Other forms of dyspnea] 12-18-2023 Episodic Other lower respiratory disease (7 sources) Hypoxia; Translations: [Hypoxemia] 10-02-2024 Episodic Other screening for suspected conditions (not mental disorders or infectious disease) (13 sources) Cardiovascular stress test abnormal; Translations: [Abnormal result of other cardiovascular function study] 06-15-2018 Episodic Other upper respiratory infections (13 sources) Acute sinusitis; Translations: [Acute sinusitis, unspecified] 06-12-2019 Episodic Otitis media and related conditions (13 sources) Dysfunction of eustachian tube; Translations: [Other specified disorders of Eustachian tube, bilateral] 03-22-2019 Episodic Residual codes; unclassified (7 sources) Altered mental status; Translations: [Altered mental status, unspecified] 10-02-2024 Episodic Syncope (9 sources) Syncope and collapse; Translations: [Syncope and collapse] 2023 Episodic Thyroid disorders (5 sources) Hypothyroidism; Translations: [Hypothyroidism, unspecified] Onset: 11-09-2024 10-02-2024 Chronic Unclassified (3 sources) Have Dr. Guzman recheck your BMP (lab) Unclassified (3 sources) Call for follow-up appointment within the next 30 days Past or Other Problems Problem Classification Problem Date Documented Da te Episodic/Chronic Coronary atherosclerosis and other heart disease (20 sources) Stented coronary artery; Translations: [Presence of coronary angioplasty implant and graft] Onset: 09-25-2000 Episodic Comment on above: PTCA/Stent x3 of the prox,mid,distal RCA 09/07/01 @ [place]; PCI/CHANDAN to the mid D1 06/26/18 SLOAN to LAD, SVG to first diagonal, and SVG to RCA in 10/23/00; Genitourinary symptoms and ill-defined conditions (1 source) Dysuria; Translations: [Dysuria] Onset: 06-14-2024 Episodic Other gastrointestinal disorders (1 source) Dysphagia, unspecified; Translations: [Dysphagia, unspecified] Onset: 10-07-2024 Episodic Other injuries and conditions due to external causes (1 source) Unspecified foreign body in respiratory tract, part unspecified causing other injury, initial encounter; Translations: [Unspecified foreign body in respiratory tract, part unspecified causing other injury, initial encounter] Onset: 09-29-2024 Episodic Other injuries and conditions due to external causes (1 source) Unspecified foreign body in esophagus causing other injury, initial encounter; Translations: [Unspecified foreign body in esophagus causing other injury, initial encounter] Onset: 10-07-2024 Episodic Results Test Name Value Interpretation Reference Range Facility Cardiology Visit Reporton Cardiology Visit Report [facility] [address] [place] [address] OFFICE VISIT Date of Service: 05/19/25 MR#: [id number] Acct: [id number] Name: RUDDY RANDOLPH Rep #: [id number] : 1940 Provider: Dr. Allen Nelson MD Age/Sex: 85/M Location: [facility] [place] Status: Signed HPI HPI History of Present Illness Details: This is a 85-year-old white male who presents today for outpatient cardiovascular follow-up regarding a history of underlying CAD, PCI in 06/26/2018, CABG (SLOAN to the LAD, SVG to the diagonal branch, SVG to the RCA in 2000), superimposed upon hyperlipidemia and hypertension. You remember he had a stress test in September or 2023 which was abnormal and he underwent a cardiac catheterization which demonstrated a patent SLOAN to the LAD and the 2 saphenous vein grafts to the diagonal and the right coronary artery were noted to be occluded with collateralization from the circumflex artery to the right coronary distribution. Medical therapy was recommended. He has done well since then. He says that his dizziness has abated. Today, he denies chest, arm, jaw, or neck discomfort. He denies palpitations or lower extremity edema. He denies claudication. He acknowledges shortness of breath with activity. He states taking more breaks with activty. He denies shortness of breath at rest, orthopnea, cough, or PND. He acknowledges lightheadedness. He denies dizziness, near-syncope, or syncope. He acknowledges fatigue. 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: No Accompanied by: Significant Other Is patient in pain?: No Allergies No Known Allergies Allergy (Verified 05/19/25 09:06) Medications ???Medication ???Instructions ???Recorded ???Confirmed ???Type atorvastatin 40 mg tablet 40 mg PO QHS #90 tabs 05/31/19 Rx acetaminophen 325 mg tablet 650 mg (2 x 325 mg) PO Q4H PRN PRN 11/23/21 05/19/25 Rx (Tylenol) Pain 1-10 Or Fever #0 tabs nitroglycerin 0.4 mg sublingual 0.4 mg sublingual Q5-15M 12/18/23 05/19/25 History tablet ramipril 5 mg capsule 5 mg PO QDAY 12/18/23 05/19/25 His tory aspirin 81 mg tablet,delayed 81 mg PO DAILY 03/26/24 05/19/25 H istory release (Adult Low Dose Aspirin) pantoprazole 40 mg tablet,delayed 40 mg PO DAILY #30 tabs 10/25/24 05/19/25 Rx release (Protonix) levothyroxine 100 mcg tablet 100 mcg PO QDAY 05/19/25 05/19/25 History Ejection fraction %: 60 Have you fallen in the past year?: No PFSH Medical History Altered mental state Hypoxia Aspiration into airway Wears glasses Wears partial dentures Alcohol use Thyroid disease High cholesterol Former smoker History of echocardiogram History of stress test Cardiology follow-up encounter History of heart attack Pure hypercholesterolemia Essential hypertension Bladder cancer Hyperlipidemia Hypertension Atherosclerotic heart disease of [place] coronary artery without angina pectoris Surgical History History of left heart catheterization ( 12/2023) History of robot-assisted laparoscopic radical prostatectomy ( 02/18/24) Hx of right cataract extraction Hx of left cataract extraction History of esophagogastroduodenoscopy (EGD) Hx of bladder repair surgery History of cardiac catheterization History of appendectomy History of cystoscopy Postsurgical percutaneous transluminal coronary angioplasty (PTCA) status ( 09/07/01) Presence of stent in coronary artery ( 06/26/18) 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) Family History Father CAD (coronary artery disease) Myocardial infarction, Onset Age: 56 Grandmother Heart disease Uncle Heart disease Social History Smoking Status: Former smoker how long ago did patient quit smokin years ago alcohol intake: current alcohol intake frequency: 0-2 drinks per day Alcohol type: beer substance use type: does not use caffeine: Yes Type: carbonated beverages Number of servings: 2 ROS Const Const: Negative for fatigue, weakness, daytime sleepiness or difficulty sleeping ENT ENT: Negative for dizziness or Nosebleed/epistaxis Cardio Chest Pain: No Palpitations: No Edema: None Resp Respiratory: Negative for SOB with activity, SOB at rest, SOB orthopnea SOB lying down or Cough GI GI: Negative nausea, vomiting or heartburn Neuro Neur (more content not included)... Normal [facility] Anion gap in Serum or Plasma Ordered By: Tl Guzman on 11-03-2024 Anion gap [Moles/Vol] 11 mmol/L 12-09 [facility] BUN/creatinine ratioOrdered By: Tl Guzman on 11-03-2024 Urea nitrogen/Creatinine [Mass ratio] 12.9 mg/mg 05-16 [facility] Basic Metabolic Profile (BMP )on 11-03-2024 BUN/CRE 12.9 RATIO Normal 10-20 [facility] Comment on above: Order Comment: Order Date: 10/06/24Order Info: 666-07 - BMPOrder Info: [id number] - TSH Performed By: #### L [id number], L500.2500 ####[facility] [id number] [place], [address] Calcium [Mass/Vol] 9.1 mg/dL Normal 7.6-11.0 [facility] Comment on above: Order Comment: Order Date: 10/06/24Order Info: 666-07 - BMPOrder Info: [id number] - TSH Performed By: #### L [id number], L500.2500 ####[facility] [id number] [place], [address] Chloride [Moles/Vol] 107 mmol/L Normal 98-108 [facility] Comment on above: Order Comment: Order Date: 10/06/24Order Info: 666-07 - BMPOrder Info: [id number] - TSH Performed By: #### L [id number], L500.2500 ####[facility] [id number] [place], [address] CO2 [Moles/Vol] 21.9 mmol/L Normal 21.0-32.0 [facility] Comment on above: Order Comment: Order Date: 10/06/24Order Info: 666-07 - BMPOrder Info: [id number] - TSH Performed By: #### L [id number], L500.2500 ####[facility] [id number] [place], [address] Creatinine [Mass/Vol] 1.54 mg/dL High 0.70-1.20 [facility] Comment on above: Order Comment: Order Date: 10/06/24Order Info: 666-07 - BMPOrder Info: [id number] - TSH Performed By: #### L [id number], [id number] ####[facility] [id number] [place], [address] GAP 11 Normal 5-15 [facility] Comment on above: Order Comment: Order Date: 10/06/24Order Info: 06- - BMPOrder Info: 3 - TSH Performed By: #### L 501.9520, L500.2500 ####[facility] [address] [place], [address] GFR/1.73 sq M.predicted among non-blacks MDRD (S/P/Bld) [Vol rate/Area] 44 mL/min/{1.73_m2} Low >60 [facility] Comment on above: Order Comment: Order Date: 10/06/24Order Info: 666-07 - BMPOrder Info: [id number] - TSH Result Comment: mL/m in/1.73m2 CKD-EPI Creatinine Equation (2020) Performed By: #### L 501.9520, L500.2500 ####[facility] [address] [place], [address] Glucose [Mass/Vol] 77 mg/dL Normal 70-99 [facility] Comment on above: Order Comment: Order Date: 10/06/24Order Info: 666- - BMPOrder Info: [id number] - TSH Performed By: #### L 501.9520, L500.2500 ####[facility] [address] [place], [address] Potassium [Moles/Vol] 4.1 mmol/L Normal 3.3-5.1 [facility] Comment on above: Order Comment: Order Date: 10/06/24Order Info: 666-07 - BMPOrder Info: 3 - TSH Performed By: #### L 501.9520, L500.2500 ####[facility] [address] [place], [address] Sodium [Moles/Vol] 140 mmol/L Normal 133-145 [facility] Comment on above: Order Comment: Order Date: 10/06/24Order Info: [id number] - BMPOrder Info: [id number] - TSH Performed By: #### L 501.9520, L500.2500 ####[facility] [address] [place], [address] Urea nitrogen [Mass/Vol] 20 mg/dL High 4-19 [facility] Comment on above: Order Comment: Order Date: 10/06/24Order Info: [id number] - BMPOrder Info: [id number] - TSH Performed By: #### L 501.9520, L500.2500 ####[facility] [address] [place], [address] Carbon dioxide, total [Moles /volume] in Central venous bloodOrdered By: Tl Guzman on 11-03-2024 CO2 [Moles/Vol] 21.9 mmol/L 21.0-32.0 [facility] Chloride assayOrdered By: Emeka Guzman on 11-03-2024 Chloride [Moles/Vol] 107 mmol/L 98-108 [facility] GFR/1.73 sq M.predicted juan pablo g non-blacks MDRD (S/P/Bld) [Vol rate/Area]Ordered By: Tl Guzman on 11-03-2024 Estimated GFR (MDRD) Non-Af Amer 44 Low >60 [facility] Comment on above: mL/min/1.73m2 CKD-EP I Creatinine Equation (2020) Potassium (Unsp spec) [Mass/ Vol]Ordered By: Tl Guzman on 11-03-2024 Potassium [Moles/Vol] 4.1 mmol/L 3.3-5.1 [facility] Serum creatinine measurement (mass/volume)Ordered By: Tl Guzman on 11-03-2024 Creatinine [Mass/Vol] 1.54 mg/dL High 0.70-1.20 [facility] Serum glucose measurement (m ass/volume)Ordered By: Tl Guzman on 11-03-2024 Glucose [Mass/Vol] 77 mg/dL 70-99 [facility] Serum or plasma calcium rosana urement (mass/volume)Ordered By: Tl Guzman on 11-03-2024 Calcium [Mass/Vol] 9.1 mg/dL 7.6-11.0 [facility] Serum or plasma urea nitroge n measurement (mass/volume)Ordered By: Tl Guzman on 11-03-2024 Urea nitrogen [Mass/Vol] 20 mg/dL High 4-19 [facility] Sodium levelOrdered By: Cash abner Thomas on 11-03-2024 Sodium [Moles/Vol] 140 mmol/L 133-145 [facility] TSH DL <= 0.005 mIU/L QnOrde red By: Tl Guzman on 11-03-2024 Thyroid Stimulating Hormone (TSH) 5.970 uIU/mL High 0.300-4.20 0 [facility] Thyroid Stim Hormone (TSH)on 11-03-2024 TSH 5.970 uIU/mL High 0.300-4.20 0 [facility] Comment on above: Order Comment: Order Date: 10/06/24Order Info: [id number] - BMPOrder Info: [id number] - TSH Performed By: #### L 501.9520, L500.2500 ####[facility] [address] [place], [place], [address] Diagnostic total prostate sp ecific antigen (PSA) measurementOrdered By: Keiry Soto on 10-26-2024 Prostate Specific Antigen Total 0.19 ng/mL 0.00-4.00 [facility] Comment on above: This test was perfor med using the [employer] tPSA method. Measured values of a patient sample can vary depending on the testing procedure used. PSA values determined on patient samples by different testing procedures cannot be used interchangeably. If there is a change in PSA assays while monitoring therapy, sequential testing should be performed to confirm baseline values. PSA,Total- [employer] PSA, DIAGNOSTIC 0.19 ng/mL Normal 0.00-4.00 [facility] Comment on above: Result Comment: This test was performed using the [employer] tPSA method. Measured values of a patient??sample can vary depending on the testing procedure used. PSA values determined on patient samples by different testing procedures cannot be used interchangeably. If there is a change in PSA assays while monitoring therapy, sequential testing should be performed to confirm baseline values. Performed By: #### P SUIV #### [facility] [address] [place], [address] Gastroenterology Visit Repor ton 10-25-2024 Gastroenterology Visit Report [facility] [address] [place] [address] OFFICE VISIT Date of Service: 10/25/24 MR#: [id number] Acct: [id number] Name: RUDDY RANDOLPH Rep #: [id number] : 1940 Provider: Tomas Khan DO Age/Sex: 84/M Location: [facility] [place] Status: Signed Intake Vital Signs 09/24/24 14:43 Height 5 ft 10 in Intake Visit Reasons: Hospital FU Allergies No Known Allergies Allergy (Verified 09/24/24 08:29) Medications ???Medication ???Instructions ???Recorded ???Confirmed ???Type atorvastatin 40 mg tablet 40 mg PO QHS #90 tabs 05/31/19 Rx acetaminophen 325 mg tablet 650 mg (2 x 325 mg) PO Q4H PRN PRN 11/23/21 10/25/24 Rx (Tylenol) Pain 1-10 Or Fever #0 tabs nitroglycerin 0.4 mg sublingual 0.4 mg sublingual Q5-15M 12/18/23 10/25/24 History tablet ramipril 5 mg capsule 5 mg PO QDAY 12/18/23 10/25/24 His tory aspirin 81 mg tablet,delayed 81 mg PO DAILY 03/26/24 10/25/24 H istory release (Adult Low Dose Aspirin) levothyroxine 100 mcg tablet 100 mcg PO MOTUWETHFRSA 03/26/24 0 10/25/24 History pantoprazole 40 mg tablet,delayed 40 mg PO DAILY #30 tabs 10/25/24 10/25/24 Rx release (Protonix) Have you fallen in the past year?: No [facility] History Wears glasses Wears partial dentures Alcohol use Thyroid disease High cholesterol Former smoker History of echocardiogram History of stress test Cardiology follow-up encounter History of heart attack Pure hypercholesterolemia Essential hypertension Bladder cancer Hyperlipidemia Hypertension Atherosclerotic heart disease of [place] coronary artery without angina pectoris Surgical History History of left heart catheterization ( 12/2023) History of robot-assisted laparoscopic radical prostatectomy ( 02/18/24) Hx of right cataract extraction Hx of left cataract extraction History of esophagogastroduodenoscopy (EGD) Hx of bladder repair surgery History of cardiac catheterization History of appendectomy History of cystoscopy Postsurgical percutaneous transluminal coronary angioplasty (PTCA) status ( 09/07/01) Presence of stent in coronary artery ( 06/26/18) 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 [facility] 2. - 3..25 food stuck in esophagus and vomiting - later returned to ER for confusion and AMS ----- GI consulted for foreign body EGD 09.24.24 Food in the distal esophagus. Removal was successful. Mild Schatzki ring. Biopsied. Treated with argon plasma coagulation (APC). Small hiatal hernia. No gross lesions in the duodenal bulb. OV 3.. pt reports that he is feeling well overall and denies GI symptoms of concern at this time. Reports that he has been able to swallow without difficulty and is able to eat almost anything. ROS Const Constitutional: No fatigue, fever(s) or weight change ENT ENT: No difficulty swallowing Gastro GI: No abdominal pain, belching, bloating, change in bowel habits, change in stool character, coffee ground emesis, constipation, cramping, diarrhea, heartburn, difficulty swallowing, feeling full early, excessive flatus, incontinent of stools, Vomiting blood/hematemesis, Blood in stool, loose stools, Black,tarry stools, nausea/dyspepsia, pain with swallowing, vomiting or other Musc Musculoskeletal: No joint pain Skin Skin: No yellowing of the eye or itchy eyes Psych Psychiatric: No anxiety and No depression Endo Endocrine: No fatigue or weight change Aller/Imm Allergy/Immunologic: No itchy eyes Ryan/Lymp Hematologic/Lymphatic: No easy bleeding or easy bruising Exam Const General: cooperative, healthy appearing and comfortable Nutritional Appearance: average body habitus and well nourished Orientation: oriented x3 HENMT Ears: hearing grossly normal bilaterally Eyes Sclera: sclerae normal Neck Neck: normal visual inspection Chest Chest palpation inspection: normal inspection of the chest Resp Effort Inspection: normal respiratory effort Auscultation: Bilateral: Clear to Auscultation Cardio (more content not included)... Normal [facility] Anion gap in Serum or Plasma Ordered By: Tl Guzman on 10-05-2024 Anion gap [Moles/Vol] 12 mmol/L 5-15 [facility] BUN/creatinine ratioOrdered By: Tl Guzman on 10-05-2024 Urea nitrogen/Creatinine [Mass ratio] 10.2 mg/mg 10-20 [facility] Bilirubin, totalOrdered By: Tl Guzman on 10-05-2024 Bilirubin [Mass/Vol] 1.09 mg/dL 0.00-1.30 [facility] CBC-Complete Blood Cnt No Di ffon 10-05-2024 Erythrocyte distribution width (RBC) [Ratio] 13.8 % Normal 11.6-14.6 [facility] Comment on above: Order Comment: Order Date: 06/14/24Order Info: [id number] - CBC Performed By: #### L 501.3140, L100.0500, L500.4100, L500.4050 ####[facility] [address] [place], [place], [id number] Hematocrit (Bld) [Volume fraction] 34.7 % Low 40-54 [facility] Comment on above: Order Comment: Order Date: 06/14/24Order Info: [id number] - CBC Performed By: #### L 501.9520, L100.0500, L500.4100, L500.4050 ####[facility] [address] [place], [address] Hemoglobin (Bld) [Mass/Vol] 11.9 g/dL Low 13.0-16.5 [facility] Comment on above: Order Comment: Order Date: 06/14/24Order Info: [id number] - CBC Performed By: #### L 501.9520, L100.0500, L500.4100, L500.4050 ####[facility] [address] [place], [address] MCH (RBC) [Entitic mass] 31.5 pg Normal 27.0-32.0 [facility] Comment on above: Order Comment: Order Date: 06/14/24Order Info: [id number] - CBC Performed By: #### L 501.9520, L100.0500, L500.4100, L500.4050 ####[facility] [address] [place], [address] MCHC (RBC) [Mass/Vol] 34.3 g/dL Normal 32-36 [facility] Comment on above: Order Comment: Order Date: 06/14/24Order Info: [id number] - CBC Performed By: #### L 501.9520, L100.0500, L500.4100, L500.4050 ####[facility] [address] [place], [address] MCV (RBC) [Entitic vol] 91.8 fL Normal 80-94 [facility] Comment on above: Order Comment: Order Date: 06/14/24Order Info: [id number] - CBC Performed By: #### L 501.9520, L100.0500, L500.4100, L500.4050 ####[facility] [address] [place], [address] Platelet mean volume (Bld) [Entitic vol] 8.3 fL Normal 6.2-12.0 [facility] Comment on above: Order Comment: Order Date: 06/14/24Order Info: [id number] - CBC Performed By: #### L 501.9520, L100.0500, L500.4100, L500.4050 ####[facility] [address] [place], [address] Platelets (Bld) [#/Vol] 263 10*3/uL Normal 150-450 [facility] Comment on above: Order Comment: Order Date: 06/14/24Order Info: [id number] - CBC Performed By: #### L 501.9520, L100.0500, L500.4100, L500.4050 ####[facility] [address] [place], [address] RBC (Bld) [#/Vol] 3.78 10*6/uL Low 4.6-6.2 [facility] Comment on above: Order Comment: Order Date: 06/14/24Order Info: [id number] - CBC Performed By: #### L 501.9520, L100.0500, L500.4100, L500.4050 ####[facility] [address] [place], [address] RDW SD 46.4 fl High 35.1-43.9 [facility] Comment on above: Order Comment: Order Date: 06/14/24Order Info: [id number] - CBC Performed By: #### L 501.9520, L100.0500, L500.4100, L500.4050 ####[facility] [address] [place], [address] WBC (Bld) [#/Vol] 6.7 10*3/uL Normal 4.4-11.0 [facility] Comment on above: Order Comment: Order Date: 06/14/24Order Info: [id number] - CBC Performed By: #### L 501.9520, L100.0500, L500.4100, L500.4050 ####[facility] [address] [place], [place], [address] Calculated very low density lipoprotein (VLDL) cholesterol measurementOrdered By: Tl Guzman on 10-05-2024 VLDL Cholesterol 13 mg/dL 5-40 [facility] Carbon dioxide, total [Moles /volume] in Central venous bloodOrdered By: Tl Guzman on 10-05-2024 CO2 [Moles/Vol] 19.8 mmol/L Low 21.0-32.0 [facility] Chloride assayOrdered By: Emeka Guzman on 10-05-2024 Chloride [Moles/Vol] 109 mmol/L High 98-108 [facility] Comprehensive Metabolic Prof ilon 10-05-2024 Albumin [Mass/Vol] 3.9 g/dL Normal 3.4-4.8 [facility] Comment on above: Order Comment: Order Date: 10/05/24Order Info: [id number] - BMPOrder Date: 06/14/24Order Info: [id number] - CMPOrder Info: [id number] - LIPIDOrder Info: [id number] - TSH Performed By: #### L 501.9520, L100.0500, L500.4100, L500.4050 ####[facility] [address] [place], [place], [address] Albumin/Globulin [Mass ratio] 1.5 {ratio} Normal 0.9-2.4 [facility] Comment on above: Order Comment: Order Date: 10/05/24Order Info: [id number] - BMPOrder Date: 06/14/24Order Info: [id number] - CMPOrder Info: [id number] - LIPIDOrder Info: [id number] - TSH Performed By: #### L 501.9520, L100.0500, L500.4100, L500.4050 ####[facility] [address] [place], [address] ALK PHOS 76 U/L Normal 40-129 [facility] Comment on above: Order Comment: Order Date: 10/05/24Order Info: 666- - BMPOrder Date: 06/14/24Order Info: 785-1 - CMPOrder Info: [id number] - LIPIDOrder Info: [id number] - TSH Performed By: #### L 501.9520, L100.0500, L500.4100, L500.4050 ####[facility] [address] [place], [address] ALT [Catalytic activity/Vol] 17 U/L Normal <=46 [facility] Comment on above: Order Comment: Order Date: 10/05/24Order Info: [id number] - BMPOrder Date: 06/14/24Order Info: 785- - CMPOrder Info: [id number] - LIPIDOrder Info: [id number] - TSH Performed By: #### L 501.9520, L100.0500, L500.4100, L500.4050 ####[facility] [address] [place], [address] AST [Catalytic activity/Vol] 27 U/L Normal <=37 [facility] Comment on above: Order Comment: Order Date: 10/05/24Order Info: 666-07 - BMPOrder Date: 06/14/24Order Info: 785- - CMPOrder Info: [id number] - LIPIDOrder Info: [id number] - TSH Performed By: #### L 501.9520, L100.0500, L500.4100, L500.4050 ####[facility] [address] [place], [address] Bilirubin [Mass/Vol] 1.09 mg/dL Normal 0.00-1.30 [facility] Comment on above: Order Comment: Order Date: 10/05/24Order Info: 666- - BMPOrder Date: 06/14/24Order Info: [id number] - CMPOrder Info: - LIPIDOrder Info: 3 - TSH Performed By: #### L 501.9520, L100.0500, L500.4100, L500.4050 ####[facility] [address] [place], [address] BUN/CRE 10.2 RATIO Normal 10-20 [facility] Comment on above: Order Comment: Order Date: 10/05/24Order Info: 666-07 - BMPOrder Date: 06/14/24Order Info: 785- - CMPOrder Info: - LIPIDOrder Info: [id number] - TSH Performed By: #### L 501.9520, L100.0500, L500.4100, L500.4050 ####[facility] [address] [place], [address] Calcium [Mass/Vol] 8.7 mg/dL Normal 7.6-11.0 [facility] Comment on above: Order Comment: Order Date: 10/05/24Order Info: 666-07 - BMPOrder Date: 06/14/24Order Info: [id number] - CMPOrder Info: - LIPIDOrder Info: [id number] - TSH Performed By: #### L 501.9520, L100.0500, L500.4100, L500.4050 ####[facility] [address] [place], [address] Chloride [Moles/Vol] 109 mmol/L High 98-108 [facility] Comment on above: Order Comment: Order Date: 10/05/24Order Info: 666-07 - BMPOrder Date: 06/14/24Order Info: [id number] - CMPOrder Info: - LIPIDOrder Info: [id number] - TSH Performed By: #### L 501.9520, L100.0500, L500.4100, L500.4050 ####[facility] [address] [place], [address] CO2 [Moles/Vol] 19.8 mmol/L Low 21.0-32.0 [facility] Comment on above: Order Comment: Order Date: 10/05/24Order Info: 666- - BMPOrder Date: 06/14/24Order Info: 86-1 - CMPOrder Info: [id number] - LIPIDOrder Info: [id number] - TSH Performed By: #### L 501.9520, L100.0500, L500.4100, L500.4050 ####[facility] [address] [place], [place], [address] Creatinine [Mass/Vol] 1.50 mg/dL High 0.70-1.20 [facility] Comment on above: Order Comment: Order Date: 10/05/24Order Info: 666-07 - BMPOrder Date: 06/14/24Order Info: 785-07 - CMPOrder Info: [id number] - LIPIDOrder Info: [id number] - TSH Performed By: #### L 501.9520, L100.0500, L500.4100, L500.4050 ####[facility] [address] [place], [place], [address] GAP 12 Normal 5-15 [facility] Comment on above: Order Comment: Order Date: 10/05/24Order Info: 666-07 - BMPOrder Date: 06/14/24Order Info: 785-07 - CMPOrder Info: [id number] - LIPIDOrder Info: [id number] - TSH Performed By: #### L 501.9520, L100.0500, L500.4100, L500.4050 ####[facility] [address] [place], [place], [address] GFR/1.73 sq M.predicted among non-blacks MDRD (S/P/Bld) [Vol rate/Area] 46 mL/min/{1.73_m2} Low >60 [facility] Comment on above: Order Comment: Order Date: 10/05/24Order Info: 666-07 - BMPOrder Date: 06/14/24Order Info: 785- - CMPOrder Info: [id number] - LIPIDOrder Info: 3 - TSH Result Comment: mL/m in/1.73m2 CKD-EPI Creatinine Equation (2020) Performed By: #### L 501.9520, L100.0500, L500.4100, L500.4050 ####[facility] [address] [place], [address] Globulin (S) [Mass/Vol] 2.5 g/dL Normal 2.2-4.2 [facility] Comment on above: Order Comment: Order Date: 10/05/24Order Info: 666-07 - BMPOrder Date: 06/14/24Order Info: [id number] - CMPOrder Info: [id number] - LIPIDOrder Info: [id number] - TSH Performed By: #### L 501.9520, L100.0500, L500.4100, L500.4050 ####[facility] [address] [place], [address] Glucose [Mass/Vol] 86 mg/dL Normal 70-99 [facility] Comment on above: Order Comment: Order Date: 10/05/24Order Info: [id number] - BMPOrder Date: 06/14/24Order Info: [id number] - CMPOrder Info: - LIPIDOrder Info: [id number] - TSH Performed By: #### L 501.9520, L100.0500, L500.4100, L500.4050 ####[facility] [address] [place], [address] Potassium [Moles/Vol] 4.0 mmol/L Normal 3.3-5.1 [facility] Comment on above: Order Comment: Order Date: 10/05/24Order Info: 666-07 - BMPOrder Date: 06/14/24Order Info: [id number] - CMPOrder Info: [id number] - LIPIDOrder Info: [id number] - TSH Performed By: #### L 501.9520, L100.0500, L500.4100, L500.4050 ####[facility] [address] [place], [address] Sodium [Moles/Vol] 141 mmol/L Normal 133-145 [facility] Comment on above: Order Comment: Order Date: 10/05/24Order Info: 06-1 - BMPOrder Date: 06/14/24Order Info: 86-1 - CMPOrder Info: [id number] - LIPIDOrder Info: [id number] - TSH Performed By: #### L 501.9520, L100.0500, L500.4100, L500.4050 ####[facility] [address] [place], [address] T PROT 6.3 g/dL Normal 5.9-8.4 [facility] Comment on above: Order Comment: Order Date: 10/05/24Order Info: 666- - BMPOrder Date: 06/14/24Order Info: 785-1 - CMPOrder Info: [id number] - LIPIDOrder Info: [id number] - TSH Performed By: #### L 501.9520, L100.0500, L500.4100, L500.4050 ####[facility] [address] [place], [address] Urea nitrogen [Mass/Vol] 15 mg/dL Normal 4-19 [facility] Comment on above: Order Comment: Order Date: 10/05/24Order Info: 06- - BMPOrder Date: 06/14/24Order Info: [id number] - CMPOrder Info: [id number] - LIPIDOrder Info: [id number] - TSH Performed By: #### L 501.9520, L100.0500, L500.4100, L500.4050 ####[facility] [address] [place], [address] Erythrocyte distribution wid th ratioOrdered By: Tl Guzman on 10-05-2024 Erythrocyte distribution width (RBC) [Ratio] 13.8 % 11.6-14.6 [facility] Erythrocyte distribution wid th standard deviationOrdered By: Tl Guzman on 10-05-2024 Erythrocyte distribution width (RBC) [Entitic vol] 46.4 fL High 35.1-43.9 [facility] GFR/1.73 sq M.predicted juan pablo g non-blacks MDRD (S/P/Bld) [Vol rate/Area]Ordered By: Tl Guzman on 10-05-2024 Estimated GFR (MDRD) Non-Af Amer 46 Low >60 [facility] Comment on above: mL/min/1.73m2 CKD-EP I Creatinine Equation (2020) Hematocrit Auto (Bld) [Volum e fraction]Ordered By: Tl Guzman on 10-05-2024 Hematocrit (Bld) [Volume fraction] 34.7 % Low 40-54 [facility] Hemoglobin measurementOrdere d By: Tl Guzman on 10-05-2024 Hemoglobin (Bld) [Mass/Vol] 11.9 g/dL Low 13.0-16.5 [facility] LDL calc ser/plasOrdered By: Tl Guzman on 10-05-2024 LDL Cholesterol, Calculated 44 mg/dL [facility] Comment on above: Fmsumtarpx=789-760 m g/dL & Higher Jias=919 mg/dL or greater Laboratory - Chemistry and C hemistry - challengeOrdered By: Tl Guzman on 10-05-2024 AST [Catalytic activity/Vol] 27 U/L <38 [facility] Lipid Profileon 10-05-2024 CHOL:HDL 2.28 Normal [facility] Comment on above: Order Comment: Order Date: 10/05/24Order Info: [id number] - BMPOrder Date: 06/14/24Order Info: [id number] - CMPOrder Info: [id number] - LIPIDOrder Info: [id number] - TSH Performed By: #### L 501.6627, L100.0500, L500.4100, L500.4050 ####[facility] [address] [place], [address] Cholesterol [Mass/Vol] 102 mg/dL Normal <=200 [facility] Comment on above: Order Comment: Order Date: 10/05/24Order Info: 06-1 - BMPOrder Date: 06/14/24Order Info: 07-1 - CMPOrder Info: [id number] - LIPIDOrder Info: [id number] - TSH Result Comment: Chol esterol level, Desirable <200 mg/dL Borderline high cholesterol 200-239 mg/dL High cholesterol >=240 mg/dL Recommendations of the NCEP Adult Treatment Panel for the following risk-cutoff thresholds for the [place] population. Performed By: #### L 501.9520, L100.0500, L500.4100, L500.4050 ####[facility] [address] [place], [place], [id number] Cholesterol in HDL [Mass/Vol] 45 mg/dL Normal [facility] Comment on above: Order Comment: Order Date: 10/05/24Order Info: [id number] - BMPOrder Date: 06/14/24Order Info: 1 - CMPOrder Info: [id number] - LIPIDOrder Info: 3 - TSH Result Comment: [place] onal Cholesterol Education Program (NCEP) guidelines: <40 mg/dL: Low HDL-cholesterol (major risk factor for CHD) >= 60 mg/dL: High HDL-cholesterol (negative risk factor for CHD) HDL-cholesterol is affected by a number of factors, e.g. smoking, exercise, hormones, sex and age. Performed By: #### L 501.9520, L100.0500, L500.4100, L500.4050 ####[facility] [address] [place], [place], [address] Cholesterol in LDL [Mass/Vol] 44 mg/dL Normal [facility] Comment on above: Order Comment: Order Date: 10/05/24Order Info: 06 - BMPOrder Date: 06/14/24Order Info: 785-1 - CMPOrder Info: [id number] - LIPIDOrder Info: [id number] - TSH Result Comment: Bord revray=852-592 mg/dL Higher Gesb=244 mg/dL or greater Performed By: #### L 501.9520, L100.0500, L500.4100, L500.4050 ####[facility] [address] [place], [address] Cholesterol in VLDL [Mass/Vol] 13 mg/dL Normal 5-40 [facility] Comment on above: Order Comment: Order Date: 10/05/24Order Info: [id number] - BMPOrder Date: 06/14/24Order Info: [id number] - CMPOrder Info: [id number] - LIPIDOrder Info: [id number] - TSH Performed By: #### L 501.9520, L100.0500, L500.4100, L500.4050 ####[facility] [address] [place], [address] Triglyceride [Mass/Vol] 64 mg/dL Normal [facility] Comment on above: Order Comment: Order Date: 10/05/24Order Info: [id number] - BMPOrder Date: 06/14/24Order Info: [id number] - CMPOrder Info: [id number] - LIPIDOrder Info: [id number] - TSH Result Comment: The drugs N-Acetylcysteine and Metamizole may falsely depress this assay. Normal range: <150 mg/dL Borderline High: 150-199 mg/dL High: 200-499 mg/dL Very High: >500 mg/dL Performed By: #### L 501.9520, L100.0500, L500.4100, L500.4050 ####[facility] [address] [place], [address] MCV (mean corpuscular volume ) determinationOrdered By: Tl Guzman on 10-05-2024 MCV (RBC) [Entitic vol] 91.8 fL 80-94 [facility] Mean corpuscular hemoglobin (MCH) determinationOrdered By: Tl Guzman on 10-05-2024 MCH (RBC) [Entitic mass] 31.5 pg 27.0-32.0 [facility] Mean corpuscular hemoglobin concentration (MCHC) determinationOrdered By: Tl Guzman on 10-05-2024 MCHC (RBC) [Mass/Vol] 34.3 g/dL 32-36 [facility] Mean platelet volume determi nationOrdered By: Tl Guzman on 10-05-2024 Platelet mean volume (Bld) [Entitic vol] 8.3 fL 6.2-12.0 [facility] Platelet countOrdered By: Emeka Guzman on 10-05-2024 Platelets (Bld) [#/Vol] 263 10*3/uL 150-450 [facility] Potassium (Unsp spec) [Mass/ Vol]Ordered By: Tl Guzman on 10-05-2024 Potassium [Moles/Vol] 4.0 mmol/L 3.3-5.1 [facility] RBC Auto (Bld) [#/Vol]Ordere d By: Tl Guzman on 10-05-2024 RBC (Bld) [#/Vol] 3.78 10*6/uL Low 4.6-6.2 [facility] Screening total cholesterol/ high density lipoprotein (HDL) cholesterol ratioOrdered By: Tl Guzman on 10-05-2024 Cholesterol.total/Chol esterol in HDL [Mass ratio] 2.28 {ratio} [facility] Serum creatinine measurement (mass/volume)Ordered By: Tl Guzman on 10-05-2024 Creatinine [Mass/Vol] 1.50 mg/dL High 0.70-1.20 [facility] Serum globulin measurementOr dered By: Tl Guzman on 10-05-2024 Globulin (S) [Mass/Vol] 2.5 g/dL 2.2-4.2 [facility] Serum glucose measurement (m ass/volume)Ordered By: Tl Guzman on 10-05-2024 Glucose [Mass/Vol] 86 mg/dL 70-99 [facility] Serum or plasma alanine soler otransferase (ALT) measurementOrdered By: Tl Guzman on 10-05-2024 ALT [Catalytic activity/Vol] 17 U/L <47 [facility] Serum or plasma albumin rosana urement (mass/volume)Ordered By: Tl Guzman on 10-05-2024 Albumin [Mass/Vol] 3.9 g/dL 3.4-4.8 [facility] Serum or plasma albumin/glob ulin mass ratioOrdered By: Tl Guzman on 10-05-2024 Albumin/Globulin [Mass ratio] 1.5 {ratio} 0.9-2.4 [facility] Serum or plasma alkaline riana sphatase measurementOrdered By: Tl Guzman on 10-05-2024 ALP [Catalytic activity/Vol] 76 U/L 40-129 [facility] Serum or plasma calcium rosana urement (mass/volume)Ordered By: Tl Guzman on 10-05-2024 Calcium [Mass/Vol] 8.7 mg/dL 7.6-11.0 [facility] Serum or plasma cholesterol in HDL measurement (mass/volume)Ordered By: Tl Guzman on 10-05-2024 Cholesterol in HDL [Mass/Vol] 45 mg/dL >40 [facility] Comment on above: National Cholesterol Education Program (NCEP) guidelines:<40 mg/dL: Low HDL-cholesterol (major risk factor for CHD)>= 60 mg/dL: High HDL-cholesterol (negative risk factor for CHD)HDL-cholesterol is affected by a number of factors, e.g. smoking, exercise, hormones, sex and age. Serum or plasma cholesterol measurement (mass/volume)Ordered By: Tl Guzman on 10-05-2024 Cholesterol [Mass/Vol] 102 mg/dL <201 [facility] Comment on above: Cholesterol level, D esirable <200 mg/dLBorderline high cholesterol 200-239 mg/dLHigh cholesterol >=240 mg/dLRecommendations of the NCEP Adult Treatment Panel for the following risk-cutoff thresholds for the [place] population. Serum or plasma urea nitroge n measurement (mass/volume)Ordered By: Tl Guzman on 10-05-2024 Urea nitrogen [Mass/Vol] 15 mg/dL 4-19 [facility] Sodium levelOrdered By: Cash Guzman on 10-05-2024 Sodium [Moles/Vol] 141 mmol/L 133-145 [facility] TSH DL <= 0.005 mIU/L QnOrde red By: Tl Guzman on 10-05-2024 Thyroid Stimulating Hormone (TSH) 20.300 uIU/mL High 0.300-4.20 0 [facility] Thyroid Stim Hormone (TSH)on 10-05-2024 TSH 20.300 uIU/mL High 0.300-4.20 0 [facility] Comment on above: Order Comment: Order Date: 10/05/24Order Info: [id number] - BMPOrder Date: 06/14/24Order Info: [id number] - CMPOrder Info: [id number] - LIPIDOrder Info: [id number] - TSH Performed By: #### L 501.9520, L100.0500, L500.4100, L500.4050 ####[facility] [address] [place], [place], [id number] Total proteinOrdered By: Pete Guzman on 10-05-2024 Protein [Mass/Vol] 6.3 g/dL 5.9-8.4 [facility] Triglycerides measurementOrd ered By: Tl Guzman on 10-05-2024 Triglyceride [Mass/Vol] 64 mg/dL <199 [facility] Comment on above: The drugs N-Acetylcy steine and Metamizole may falsely depress this assay. Normal range: <150 mg/dLBorderline High: 150-199 mg/dLHigh: 200-499 mg/dLVery High: >500 mg/dL White blood cell (WBC) count Ordered By: Tl Guzman on 10-05-2024 WBC (Bld) [#/Vol] 6.7 10*3/uL 4.4-11.0 [facility] Culture, Blood (WB)on 2024 CUB Blood cultures x2, f rom two different sites No growth in 5 days. Normal [facility] Comment on above: Performed By: #### L 500.4050, M200.1000, L503.6005, L100.0100, L300.3900 ####[facility] [address] [place], [place], [id number] Absolute neutrophil countOrd ered By: Suresh Aranda on 09-25-2024 Neutrophils (Bld) [#/Vol] 7.4 10*3/uL 2.0-7.7 [facility] BUN/creatinine ratioOrdered By: Suresh Aranda on 09-25-2024 Urea nitrogen/Creatinine [Mass ratio] 15.1 mg/mg 10- [facility] Basic Metabolic Profile (BMP )on 09-25-2024 Anion gap [Moles/Vol] 11 mmol/L Normal 5-15 [facility] Comment on above: Performed By: #### L 100.0100, L500.2500 ####[facility] [address] [place], [address] BUN/CRE 15.1 RATIO Normal - [facility] Comment on above: Performed By: #### L 100.0100, L500.2500 ####[facility] [address] [place], [address] Calcium [Mass/Vol] 8.5 mg/dL Normal 7.6-11.0 [facility] Comment on above: Performed By: #### L 100.0100, L500.2500 ####[facility] [address] [place], [address] Chloride [Moles/Vol] 108 mmol/L Normal 96-108 [facility] Comment on above: Performed By: #### L 100.0100, L500.2500 ####[facility] [address] [place], [address] CO2 [Moles/Vol] 20.5 mmol/L Low 22.0-29.0 [facility] Comment on above: Performed By: #### L 100.0100, L500.2500 ####[facility] [address] [place], [address] Creatinine [Mass/Vol] 1.70 mg/dL High 0.70-1.20 [facility] Comment on above: Performed By: #### L 100.0100, L500.2500 ####[facility] [address] [place], [address] ECRCL 31.76 ml/min Normal [facility] Comment on above: Performed By: #### L 100.0100, L500.2500 ####[facility] [address] [place], [address] GFR/1.73 sq M.predicted among non-blacks MDRD (S/P/Bld) [Vol rate/Area] 40 mL/min/{1.73_m2} Low >60 [facility] Comment on above: Result Comment: mL/m in/1.73m2 CKD-EPI Creatinine Equation (2020) Performed By: #### L 100.0100, L500.2500 ####[facility] [address] [place], [address] Glucose [Mass/Vol] 96 mg/dL Normal 70-99 [facility] Comment on above: Performed By: #### L 100.0100, L500.2500 ####[facility] [address] [place], [address] Potassium [Moles/Vol] 4.3 mmol/L Normal 3.3-5.1 [facility] Comment on above: Performed By: #### L 100.0100, L500.2500 ####[facility] [address] [place], [address] Sodium [Moles/Vol] 140 mmol/L Normal 133-145 [facility] Comment on above: Performed By: #### L 100.0100, L500.2500 ####[facility] [address] [place], [address] Urea nitrogen [Mass/Vol] 26 mg/dL High 4-19 [facility] Comment on above: Performed By: #### L 100.0100, L500.2500 ####[facility] [address] [place], [address] Basophil percentageOrdered B y: Suresh Aranda on 09-25-2024 Basophils/100 WBC (Bld) 0.2 % 0-1 [facility] CBC W/Diff, Automatedon SMEAR COMMENT SCANNED Normal [facility] Comment on above: Performed By: #### L 100.0100, L500.2500 ####[facility] [address] [place], [address] Carbon dioxide measurementOr dered By: Suresh Aranda on 09-25-2024 CO2 [Moles/Vol] 20.5 mmol/L Low 22.0-29.0 [facility] Chest PA and Lateralon 09-25 Chest PA and Lateral [facility] [address] [place], [place] [address] Chest PA and Lateral MR#: [id number] Acct: [id number] Name: RUDDY RANDOLPH Rep #: [id number] : 1940 M 84 From: Isaiah Richter MD PCP: Dr. Tl Guzman MD Status: DIS COLE Study: Chest PA and Lateral Date of Exam: 09/25/24 Exam# [id number] Ordering Dr: Suresh Aranda DO PROCEDURE: CHEST PA AND LATERAL REASON FOR EXAM: Hypoxia TECHNIQUE: Frontal and lateral views of the chest. COMPARISON: 09/24/2024 FINDINGS: The heart size is normal. The mediastinal contour is unremarkable. The lungs are clear. Degenerative changes are identified within the thoracic spine. Median sternotomy wires. RAD/Chest PA and Lateral IMPRESSION: No radiographic evidence of acute cardiopulmonary disease Reading Location: [facility] CC: Dr. Tl Guzman MD; Dr. 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 Tl Guzman MD Status:ADM COLE Discharge Instructions Diet Discharge Diet: No restrictions DC O2, CPAP, BIPAP needs Home O2 Discharge instructions: No Dressing / Incision Discharge Activity: Return to Normal Activity Weight Bearing Status: Weight bearing as tolerated Follow Up Care Test Results: Test results from this visit will be discussed in further detail at your follow-up appointment, if applicable. Discharge Plan Admission Admit Date/Time: 09/24/24 13:02 Primary Reason for Your Visit: Aspiration Attending Provider: Suresh Aranda Primary Care Provider: Tl Guzman Discharge Orders/Prescriptions Prescriptions: New pantoprazole [Protonix] 40 mg tablet,delayed release (DR/EC) 40 mg PO DAILY Qty: 30 0RF Continued aspirin [Adult Low Dose Aspirin] 81 mg tablet,delayed release (DR/EC) 81 mg PO DAILY levothyroxine 100 mcg tablet 100 mcg PO MOTUWETHFRSA ramipril 5 mg capsule 5 mg PO QDAY nitroglycerin 0.4 mg tablet, sublingual 0.4 mg sublingual Q5-15M acetaminophen [Tylenol] 325 mg Tablet 650 mg PO Q4H PRN PRN (Reason: Pain 1-10 Or Fever) Qty: 0 0RF atorvastatin 40 mg tablet 40 mg PO QHS Qty: 90 3RF Referrals / Follow Up: Tl Guzman MD [Primary Care Provider] - In 1 Week ([address] Dr[address] Guzman recheck your BMP (lab)) FriendTomas DO [Med Staff - Active Staff] - Within 1 Month (Call for follow-up appointment within the next 30 days) Disposition Disposition (needs filled in before D/C Order can be placed): Home, Self Care 09/25/24 1209 Suresh Aranda DO CC: Dr. Tl Guzman MD Signed ADDENDUM by Dr. Suresh Aranda DO on 09/25/24 at 1214 Follow-up with speech therapy as an outpatient 09/25/24 1214 Suresh Aranda DO cc: Dr. Tl Guzman MD * Signed Normal [facility] Eosinophil percentageOrdered By: Suresh Aranda on 09-25-2024 Eosinophils/100 WBC (Bld) 0.1 % 0-5 [facility] Erythrocyte distribution wid th ratioOrdered By: Suresh Aranda on 09-25-2024 Erythrocyte distribution width (RBC) [Ratio] 13.9 % 11.6-14.6 [facility] Erythrocyte distribution wid th standard deviationOrdered By: Suresh Aranda on 09-25-2024 Erythrocyte distribution width (RBC) [Entitic vol] 45.7 fL High 35.1-43.9 [facility] Estimation of creatinine clarita aranceOrdered By: Suresh Aranda on 09-25-2024 Estimated Creatinine Clearance Calc 31.76 ml/min [facility] GFR/1.73 sq M.predicted juan pablo g non-blacks MDRD (S/P/Bld) [Vol rate/Area]Ordered By: Suresh Aranda on 09-25-2024 Estimated GFR (MDRD) Non-Af Amer 40 Low >60 [facility] Comment on above: mL/min/1.73m2 CKD-EP I Creatinine Equation (2020) Hematocrit Auto (Bld) [Volum e fraction]Ordered By: Suresh Aranda on 09-25-2024 Hematocrit (Bld) [Volume fraction] 30.4 % Low 40-54 [facility] Hemoglobin measurementOrdere d By: Suresh Aranda on 09-25-2024 Hemoglobin (Bld) [Mass/Vol] 10.8 g/dL Low 13.0-16.5 [facility] Immature granulocytes/100 WB C Auto (Bld)Ordered By: Suresh Aranda on 09-25-2024 Immature granulocytes/100 WBC (Bld) 0.500 % 0.0-0.9 [facility] Comment on above: IG% - Immature Granu locytes (promyelocytes, myelocytes and metamyelocytes) > 1% indicates that a LEFT SHIFT is Present. Lymphocytes Auto (Unsp spec) [#/Vol]Ordered By: Suresh Aranda on 09-25-2024 Lymphocytes (Bld) [#/Vol] 1.14 10*3/uL 0.83-4.51 [facility] Lymphocytes/100 WBC Auto (Un sp spec)Ordered By: Suresh Aranda on 09-25-2024 Lymphocytes/100 WBC (Bld) 12.4 % Low 19-41 [facility] MCV (mean corpuscular volume ) determinationOrdered By: Suresh Aranda on 09-25-2024 MCV (RBC) [Entitic vol] 89.7 fL 80-94 [facility] Manual differential comment Regan (Bld) [Interp]Ordered By: Suresh Aranda on 09-25-2024 Differential Comment SCANNED [facility] Mean corpuscular hemoglobin (MCH) determinationOrdered By: Suresh Aranda on 09-25-2024 MCH (RBC) [Entitic mass] 31.9 pg 27.0-32.0 [facility] Mean corpuscular hemoglobin concentration (MCHC) determinationOrdered By: Suresh Aranda on 09-25-2024 MCHC (RBC) [Mass/Vol] 35.5 g/dL 32-36 [facility] Mean platelet volume determi nationOrdered By: Suresh Aranda on 09-25-2024 Platelet mean volume (Bld) [Entitic vol] 8.5 fL 6.2-12.0 [facility] Monocyte percentageOrdered B y: Suresh Aranda on 09-25-2024 Monocytes/100 WBC (Bld) 6.2 % 0-10 [facility] Neutrophil percentageOrdered By: Suresh Aranda on 09-25-2024 Neutrophils/100 WBC (Bld) 80.6 % High 47-70 [facility] Nucleated red blood cell per centageOrdered By: Suresh Aranda on 09-25-2024 Nucleated RBC/100 WBC (Bld) [Ratio] 0 % 0-5 [facility] Platelet countOrdered By: Vj Aranda on 09-25-2024 Platelets (Bld) [#/Vol] 153 10*3/uL 150-450 [facility] RBC Auto (Bld) [#/Vol]Ordere d By: Suresh Aranda on 09-25-2024 RBC (Bld) [#/Vol] 3.39 10*6/uL Low 4.6-6.2 [facility] Serum creatinine measurement (mass/volume)Ordered By: Suresh Aranda on 09-25-2024 Creatinine [Mass/Vol] 1.70 mg/dL High 0.70-1.20 [facility] Serum glucose measurement (m ass/volume)Ordered By: Suresh Aranda on 09-25-2024 Glucose [Mass/Vol] 96 mg/dL 70-99 [facility] Serum or plasma anion gap de termination (moles/volume)Ordered By: Suresh Aranda on 09-25-2024 Anion gap [Moles/Vol] 11 mmol/L 5-15 [facility] Serum or plasma calcium rosana urement (mass/volume)Ordered By: Suresh Aranda on 09-25-2024 Calcium [Mass/Vol] 8.5 mg/dL 7.6-11.0 [facility] Serum or plasma potassium me asurementOrdered By: Suresh Aranda on 09-25-2024 Potassium [Moles/Vol] 4.3 mmol/L 3.3-5.1 [facility] Serum or plasma sodium measu rement (moles/volume)Ordered By: Suresh Aranda on 09-25-2024 Sodium [Moles/Vol] 140 mmol/L 133-145 [facility] Serum or plasma urea nitroge n measurement (mass/volume)Ordered By: Suresh Aranda on 09-25-2024 Urea nitrogen [Mass/Vol] 26 mg/dL High 4-19 [facility] Urine Cultureon 09-25-2024 URC Culture exhibits no growth. Normal [facility] Comment on above: Performed By: #### M 100.678, L400.0001, M100.2200 ####[facility] [address] [facility]. [place], [place], [id number] White blood cell (WBC) count Ordered By: Suresh Aranda on 09-25-2024 WBC (Bld) [#/Vol] 9.2 10*3/uL 4.4-11.0 [facility] 12 Lead EKGon 09-24-2024 12 Lead EKG [facility] Cardiovascular Services [address] [place] [address] 12 Lead EKG 09/24/24 0932 MR#: [id number] Acct: [id number] Name: RUDDY RANDOLPH Rep #: [id number] : 1940 84 From: Roosevelt Jensen MD Attending Dr: Dr. Suresh Aranda DO Status: D IS COLE Ordering Dr: Tate Meneses DO Date: 09/24/24 Location: [facility] Sex: M C Admitted: 09/24/24 Test Reason : Blood Pressure : */* mmHG Vent. Rate : 98 BPM Atrial Rate : 98 BPM P-R Int : 148 ms QRS Dur : 122 ms QT Int : 404 ms P-R-T Axes : 41 -37 4 degrees QTcB Int : 515 ms Normal sinus rhythm Possible Left atrial enlargement Left axis deviation Right bundle branch block Abnormal ECG Confirmed by Roosevelt Jensen ([id number]), electronic news gathering editor HARJIT BETHEA ([id number]) on 09/27/2024 10:46:23 AM Referred By: GREG Confirmed By: Roosevelt Jensen 09/27/24 1046 Date Roosevelt Jensen MD CC: Dr. Tl Guzman MD; Dr. Tate Meneses DO; Dr. Suresh Aranda DO Signed Normal [facility] Bacteria LM.HPF (Urine sed) [#/Area]Ordered By: Tate Meneses on 09-24-2024 Urine Bacteria RARE /hpf None Seen [facility] Basic Metabolic Profile (BMP )on 09-24-2024 Anion gap [Moles/Vol] 12 mmol/L Normal 5-15 [facility] Comment on above: Performed By: #### L 500.2500 ####[facility] [address] [place], [place], [id number] BUN/CRE 13.8 RATIO Normal 10-20 [facility] Comment on above: Performed By: #### L 500.2500 ####[facility] [address] [place], [place], [id number] Calcium [Mass/Vol] 8.2 mg/dL Normal 7.6-11.0 [facility] Comment on above: Performed By: #### L 500.2500 ####[facility] [address] [place], [address] Chloride [Moles/Vol] 108 mmol/L Normal 96-108 [facility] Comment on above: Performed By: #### L 500.2500 ####[facility] [address] [place], [address] CO2 [Moles/Vol] 19.9 mmol/L Low 22.0-29.0 [facility] Comment on above: Performed By: #### L 500.2500 ####[facility] [address] [place], [address] Creatinine [Mass/Vol] 1.54 mg/dL High 0.70-1.20 [facility] Comment on above: Performed By: #### L 500.2500 ####[facility] [address] [place], [address] ECRCL 37.53 ml/min Normal [facility] Comment on above: Performed By: #### L 500.2500 ####[facility] [address] [place], [address] GFR/1.73 sq M.predicted among non-blacks MDRD (S/P/Bld) [Vol rate/Area] 44 mL/min/{1.73_m2} Low >60 [facility] Comment on above: Result Comment: mL/m in/1.73m2 CKD-EPI Creatinine Equation (2020) Performed By: #### L 500.2500 ####[facility] [address] [place], [address] Glucose [Mass/Vol] 111 mg/dL High 70-99 [facility] Comment on above: Performed By: #### L 500.2500 ####[facility] [address] [place], [address] Potassium [Moles/Vol] 3.6 mmol/L Normal 3.3-5.1 [facility] Comment on above: Performed By: #### L 500.2500 ####[facility] [address] [place], [address] Sodium [Moles/Vol] 140 mmol/L Normal 133-145 [facility] Comment on above: Performed By: #### L 500.2500 ####[facility] [address] [place], [address] Urea nitrogen [Mass/Vol] 21 mg/dL High 4-19 [facility] Comment on above: Performed By: #### L 500.2500 ####[facility] [address] [place], [address] Bilirubin Test strip Ql (U)O rdered By: Tate Meneses on 09-24-2024 Bilirubin Ql (U) Negative Negative [facility] Bilirubin, totalOrdered By: Tate Meneses on 09-24-2024 Bilirubin [Mass/Vol] 0.85 mg/dL 0.00-1.30 [facility] Blood cultureOrdered By: Jenaro Meneses on 09-24-2024 Bacteria identified Cx Nom (Bld) No growth in 5 days. [facility] Bacteria identified Cx Nom (Bld) No growth in 5 days. [facility] CBC W/Diff, Automatedon 08-29 Absolute Lymph 0.22 X10 3/uL Low 0.83-4.51 [facility] Comment on above: Performed By: #### L 500.4050, M200.1000, L503.6005, L100.0100, L300.3900 ####[facility] [address] [place], [address] Absolute Neut 3.3 X10 3/uL Normal 2.0-7.7 [facility] Comment on above: Performed By: #### L 500.4050, M200.1000, L503.6005, L100.0100, L300.3900 ####[facility] [address] [place], [address] Basophils/100 WBC (Bld) 0.3 % Normal 0-1 [facility] Comment on above: Performed By: #### L 500.4050, M200.1000, L503.6005, L100.0100, L300.3900 ####[facility] [address] [place], [address] Eosinophils/100 WBC (Bld) 0.0 % Normal 0-5 [facility] Comment on above: Performed By: #### L 500.4050, M200.1000, L503.6005, L100.0100, L300.3900 ####[facility] [address] [place], [address] Erythrocyte distribution width (RBC) [Ratio] 13.5 % Normal 11.6-14.6 [facility] Comment on above: Performed By: #### L 500.4050, M200.1000, L503.6005, L100.0100, L300.3900 ####[facility] [address] [place], [address] Hematocrit (Bld) [Volume fraction] 28.0 % Low 40-54 [facility] Comment on above: Performed By: #### L 500.4050, M200.1000, L503.6005, L100.0100, L300.3900 ####[facility] [address] [place], [address] Hemoglobin (Bld) [Mass/Vol] 9.9 g/dL Low 13.0-16.5 [facility] Comment on above: Performed By: #### L 500.4050, M200.1000, L503.6005, L100.0100, L300.3900 ####[facility] [address] [place], [address] IG% 0.300 Normal 0.0-0.9 [facility] Comment on above: Result Comment: IG% - Immature Granulocytes (promyelocytes, myelocytes and metamyelocytes) > 1% indicates that a LEFT SHIFT is Present. Performed By: #### L 500.4050, M200.1000, L503.6005, L100.0100, L300.3900 ####[facility] [address] [place], [address] Lymphocytes/100 WBC (Bld) 5.7 % Low 19-41 [facility] Comment on above: Performed By: #### L 500.4050, M200.1000, L503.6005, L100.0100, L300.3900 ####[facility] [address] [place], [address] MCH (RBC) [Entitic mass] 31.6 pg Normal 27.0-32.0 [facility] Comment on above: Performed By: #### L 500.4050, M200.1000, L503.6005, L100.0100, L300.3900 ####[facility] [address] [place], [address] MCHC (RBC) [Mass/Vol] 35.4 g/dL Normal 32-36 [facility] Comment on above: Performed By: #### L 500.4050, M200.1000, L503.6005, L100.0100, L300.3900 ####[facility] [address] [place], [address] MCV (RBC) [Entitic vol] 89.5 fL Normal 80-94 [facility] Comment on above: Performed By: #### L 500.4050, M200.1000, L503.6005, L100.0100, L300.3900 ####[facility] [address] [place], [address] Monocytes/100 WBC (Bld) 8.0 % Normal 0-10 [facility] Comment on above: Performed By: #### L 500.4050, M200.1000, L503.6005, L100.0100, L300.3900 ####[facility] [address] [place], [address] Neutrophils/100 WBC (Bld) 85.7 % High 47-70 [facility] Comment on above: Performed By: #### L 500.4050, M200.1000, L503.6005, L100.0100, L300.3900 ####[facility] [address] [place], [address] Nucleated RBC (Bld) [#/Vol] 0 10*3/uL Normal 0-5 [facility] Comment on above: Performed By: #### L 500.4050, M200.1000, L503.6005, L100.0100, L300.3900 ####[facility] [address] [place], [address] Platelet mean volume (Bld) [Entitic vol] 8.6 fL Normal 6.2-12.0 [facility] Comment on above: Performed By: #### L 500.4050, M200.1000, L503.6005, L100.0100, L300.3900 ####[facility] [address] [place], [address] Platelets (Bld) [#/Vol] 118 10*3/uL Low 150-450 [facility] Comment on above: Performed By: #### L 500.4050, M200.1000, L503.6005, L100.0100, L300.3900 ####[facility] [address] [place], [address] RBC (Bld) [#/Vol] 3.13 10*6/uL Low 4.6-6.2 [facility] Comment on above: Performed By: #### L 500.4050, M200.1000, L503.6005, L100.0100, L300.3900 ####[facility] [address] [place], [address] RDW SD 43.8 fl Normal 35.1-43.9 [facility] Comment on above: Performed By: #### L 500.4050, M200.1000, L503.6005, L100.0100, L300.3900 ####[facility] [address] [place], [address] WBC (Bld) [#/Vol] 3.9 10*3/uL Low 4.4-11.0 [facility] Comment on above: Performed By: #### L 500.4050, M200.1000, L503.6005, L100.0100, L300.3900 ####[facility] [address] [place], [address] CTA Chest W/WO Contraston CTA Chest W/WO Contrast [facility] Imaging Services [address] [place] [address] CTA Chest W/WO Contrast MR#: [id number] Acct: [id number] Name: RUDDY RANDOLPH Rep #: [id number] : 1940 M 84 From: Edwin alvarez MD PCP: Dr. Tl Guzman MD Status: REG ER Study: CTA Chest W/WO Contrast Date of Exam: 09/24/24 Exam# [id number] Ordering Dr: Tate Meneses DO PROCEDURE: CTA CHEST W/WO CONTRAST REASON FOR EXAM: Choking episode last night. Now presents with fever and confusion. TECHNIQUE: CTA imaging of the chest with intravenous contrast. 3D reconstructions. CONTRAST: 100 cc of Isovue-300 was injected intravenously. COMPARISON: Comparison is made with prior chest radiograph done earlier in the day. FINDINGS: Hardware: None. Lymph nodes: No mediastinal hilar or axillary lymphadenopathy. Heart: Prior midline sternotomy. Coronary artery calcification. RV/LV Diameter Ratio: N/A Thoracic Aorta: No thoracic aortic aneurysm or dissection. Pulmonary Vessels: No evidence of acute pulmonary emboli through the major subsegmental branches. Most Proximal Level of Embolus (if embolus present): No evidence of pulmonary emboli. Lungs and Airways: Small rounded alveolar opacities in the right middle lobe. Mild scarring at the lung apices more prominent on the right lung base. Mild degree of bronchiectasis. Mild scarring at the left lung base as well with bronchiectasis. No focal infiltrate is seen. Pleura: No pleural effusion. No pneumothorax. Upper Abdomen: Visualized portions of the upper abdominal viscera are unremarkable. Bones: Degenerative changes of the thoracic spine. CT/CTA Chest W/WO Contrast IMPRESSION: No evidence of pulmonary emboli. Findings suggestive of scarring at the lung bases as well as in the right middle lobe. No focal infiltrate is seen. One or more dose reduction techniques were used (e.g., Automated exposure control, adjustment of the mA and/or kV according to patient size, use of iterative reconstruction technique). Reading Location: [id number] CC: Dr. Tl Guzman MD; Dr. Tate Meneses DO Motorcycle Mechanic: Signed Normal [facility] Chest 1 View (Portable)on Chest 1 View (Portable) [facility] Imaging Services [address] [place] [address] [id number] Chest 1 View (Portable) MR#: [id number] Acct: [id number] Name: RUDDY RANDOLPH Rep #: [id number] : 1940 84 From: Edwin alvarez MD PCP: Dr. Tl Guzman MD Status: REG ER Study: Chest 1 View (Portable) Date of Exam: 09/24/24 Exam# [id number] Ordering Dr: Tate Meneses DO PROCEDURE: CHEST 1 VIEW (PORTABLE) REASON FOR EXAM: Cough fever and hypoxia. Confusion. TECHNIQUE: A portable chest radiograph was obtained. COMPARISON: Comparison is made with prior study dated January 02, 2024. FINDINGS: EKG electrodes are seen The heart size is normal. Prior midline sternotomy. The mediastinal contour is unremarkable. Stable mild elevation of the right hemidiaphragm. The lungs are clear. Degenerative changes are identified within the thoracic spine. RAD/Chest 1 View (Portable) IMPRESSION: Stable examination. No acute abnormality is seen. Reading Location: [id number] CC: Dr. Tl Guzman MD; Dr. Tate Meneses DO Motorcycle Mechanic: Signed Normal [facility] Comprehensive Metabolic Prof ilon 09-24-2024 Albumin [Mass/Vol] 2.3 g/dL Low 3.4-4.8 [facility] Comment on above: Performed By: #### L 500.4050, M200.1000, L503.6005, L100.0100, L300.3900 ####[facility] [address] [place], [address] Albumin/Globulin [Mass ratio] 2.1 {ratio} Normal 0.9-2.4 [facility] Comment on above: Performed By: #### L 500.4050, M200.1000, L503.6005, L100.0100, L300.3900 ####[facility] [address] [place], [address] ALK PHOS 40 U/L Normal 40-129 [facility] Comment on above: Performed By: #### L 500.4050, M200.1000, L503.6005, L100.0100, L300.3900 ####[facility] [address] [place], [address] ALT [Catalytic activity/Vol] 10 U/L Normal <=46 [facility] Comment on above: Performed By: #### L 500.4050, M200.1000, L503.6005, L100.0100, L300.3900 ####[facility] [address] [place], [address] Anion gap [Moles/Vol] 9 mmol/L Normal 5-15 [facility] Comment on above: Performed By: #### L 500.4050, M200.1000, L503.6005, L100.0100, L300.3900 ####[facility] [address] [place], [address] AST [Catalytic activity/Vol] 17 U/L Normal <=37 [facility] Comment on above: Performed By: #### L 500.4050, M200.1000, L503.6005, L100.0100, L300.3900 ####[facility] [address] [place], [address] Bilirubin [Mass/Vol] 0.85 mg/dL Normal 0.00-1.30 [facility] Comment on above: Performed By: #### L 500.4050, M200.1000, L503.6005, L100.0100, L300.3900 ####[facility] [address] [place], [address] BUN/CRE 16.7 RATIO Normal 10-20 [facility] Comment on above: Performed By: #### L 500.4050, M200.1000, L503.6005, L100.0100, L300.3900 ####[facility] [address] [place], [address] Calcium [Mass/Vol] 5.0 mg/dL Invalid Interpretation Code 7.6-11.0 [facility] Comment on above: Result Comment: Crit ical Result(s) Called at 1023: by:Saritha Mcgee to [facility].??Results read back by same. Performed By: #### L 500.4050, M200.1000, L503.6005, L100.0100, L300.3900 ####[facility] [address] [place], [address] Chloride [Moles/Vol] 123 mmol/L High 96-108 [facility] Comment on above: Performed By: #### L 500.4050, M200.1000, L503.6005, L100.0100, L300.3900 ####[facility] [address] [place], [address] CO2 [Moles/Vol] 13.2 mmol/L Low 22.0-29.0 [facility] Comment on above: Performed By: #### L 500.4050, M200.1000, L503.6005, L100.0100, L300.3900 ####[facility] [address] [place], [address] Creatinine [Mass/Vol] 0.85 mg/dL Normal 0.70-1.20 [facility] Comment on above: Performed By: #### L 500.4050, M200.1000, L503.6005, L100.0100, L300.3900 ####[facility] [address] [place], [address] ECRCL 67.99 ml/min Normal [facility] Comment on above: Performed By: #### L 500.4050, M200.1000, L503.6005, L100.0100, L300.3900 ####[facility] [address] [place], [address] GFR/1.73 sq M.predicted among non-blacks MDRD (S/P/Bld) [Vol rate/Area] 86 mL/min/{1.73_m2} Normal >60 [facility] Comment on above: Result Comment: mL/m in/1.73m2 CKD-EPI Creatinine Equation (2020) Performed By: #### L 500.4050, M200.1000, L503.6005, L100.0100, L300.3900 ####[facility] [address] [place], [address] Globulin (S) [Mass/Vol] 1.1 g/dL Low 2.2-4.2 [facility] Comment on above: Performed By: #### L 500.4050, M200.1000, L503.6005, L100.0100, L300.3900 ####[facility] [address] [place], [address] Glucose [Mass/Vol] 90 mg/dL Normal 70-99 [facility] Comment on above: Performed By: #### L 500.4050, M200.1000, L503.6005, L100.0100, L300.3900 ####[facility] [address] [place], [address] Potassium [Moles/Vol] 2.1 mmol/L Invalid Interpretation Code 3.3-5.1 [facility] Comment on above: Result Comment: Crit ical Result(s) Called at 1023: by:Saritha Mcgee to [facility].??Results read back by same. Performed By: #### L 500.4050, M200.1000, L503.6005, L100.0100, L300.3900 ####[facility] [address] [place], [address] Sodium [Moles/Vol] 144 mmol/L Normal 133-145 [facility] Comment on above: Performed By: #### L 500.4050, M200.1000, L503.6005, L100.0100, L300.3900 ####[facility] [address] [place], [address] T PROT 3.5 g/dL Low 5.9-8.4 [facility] Comment on above: Performed By: #### L 500.4050, M200.1000, L503.6005, L100.0100, L300.3900 ####[facility] [address] [place], [address] Urea nitrogen [Mass/Vol] 14 mg/dL Normal 4-19 [facility] Comment on above: Performed By: #### L 500.4050, M200.1000, L503.6005, L100.0100, L300.3900 ####[facility] [address] [place], [address] EGD Reporton 09-24-2024 EGD Report [facility] Medical Records Department [address] [place] [address] EGD Report MR#: [id number] Acct: [id number] Name: RUDDY RANDOLPH Rep #: [id number] : 1940 84 From: Tomas Khan DO PCP: Dr. Tl Guzman MD Status:ADM COLE Patient Name: Ruddy Randolph Procedure Date: 09/24/2024 6:34 PM Date of : 1940 Age: 84 Procedure: Upper GI endoscopy Indications: Dysphagia, Suspected ingestion of foreign body Providers: Tomas Khan DO Medicines: Monitored Anesthesia Care Patient Profile: This is an 84 year old male. Refer to note in patient chart for documentation of history and physical. Patient has symptoms of dysphagia with solids and acute vomiting. Complications: No immediate complications. Procedure: Pre-Anesthesia Assessment: - Prior to the procedure, a History and Physical was performed, and patient medications and allergies were reviewed. The patient is competent. The risks and benefits of the procedure and the sedation options and risks were discussed with the patient. All questions were answered and informed consent was obtained. Patient identification and proposed procedure were verified in the pre-procedure area. Mental Status Examination: alert and oriented. Airway Examination: normal oropharyngeal airway and neck mobility. Respiratory Examination: clear to auscultation. CV Examination: normal. Prophylactic Antibiotics: The patient does not require prophylactic antibiotics. Prior Anticoagulants: The patient has taken no anticoagulant or antiplatelet agents except for NSAID medication. ASA Grade Assessment: III - A patient with severe systemic disease. After reviewing the risks and benefits, the patient was deemed in satisfactory condition to undergo the procedure. The anesthesia plan was to use monitored anesthesia care (MAC). Immediately prior to administration of medications, the patient was re-assessed for adequacy to receive sedatives. The heart rate, respiratory rate, oxygen saturations, blood pressure, adequacy of pulmonary ventilation, and response to care were monitored throughout the procedure. The physical status of the patient was re-assessed after the procedure. After obtaining informed consent, the endoscope was passed under direct vision. Throughout the procedure, the patient's blood pressure, pulse, and oxygen saturations were monitored continuously. The Endoscope was introduced through the mouth, and advanced to the second part of duodenum. The upper GI endoscopy was accomplished without difficulty. The patient tolerated the procedure well. Scope In: 6:51:21 PM Scope Out: 6:58:11 PM Total Procedure Duration Time 0 hours 6 minutes 50 seconds Findings: Food was found in the distal esophagus. Removal was accomplished with a regular forceps. A mild Schatzki ring was found at the gastroesophageal junction. Biopsies were taken with a cold forceps for histology. Verification of patient identification for the specimen was done. Estimated blood loss was minimal. Coagulation for tissue destruction using argon plasma at 0.3 liters/minute and 20 rios was successful. Estimated blood loss was minimal. A small hiatal hernia was present. No gross lesions were noted in the duodenal bulb. Impression: - Food in the distal esophagus. Removal was successful. - Mild Schatzki ring. Biopsied. Treated with argon plasma coagulation (APC). - Small hiatal hernia. - No gross lesions in the duodenal bulb. Recommendation: - Return patient to [facility] for [facility] care. - Full liquid diet. - Continue present medications. -PPI drip for 24 hours Procedure Code(s): --- Professional --- 90238, Esophagogastroduodenoscopy, flexible, transoral; with ablation of tumor(s), polyp(s), or other lesion(s) (includes pre- and post-dilation and guide wire passage, when performed) 80436, 51, Esophagogastroduodenoscopy, flexible, transoral; with removal of foreign body(s) 89504, 59, Esophagogastroduodenoscopy, flexible, transoral; with biopsy, single or multiple CPT copyright 2021 [employer]. All rights reserved. The codes documented in this report are preliminary and upon dough mixing machine operator review may be revised to meet current compliance requirements. Tomas Khan DO 09/24/2024 7:06:42 PM This report has been signed electronically. Number of Addenda: 0 Note Initiated On: 09/24/2024 6:34 PM 09/24/241905 Date Tomas Friend DO Soto Signature: Date (if indicated) CC: Dr. Tl Guzman MD; Tomas Bill Date Dictated: 09/24/24 1834 Date Transcribed: Motorcycle Mechanic: RF Signed Normal [facility] Emergency Department Summary on 09-24-2024 Emergency Department Summary [facility] Medical Records Department [address] [place] [address] Emergency Department Summary 09/24/24 MR#: [id number] Acct: [id number] Name: RUDDY RANDOLPH Rep #: [id number] : 1940 84 From: Tate Meneses DO PCP: Dr. Tl Guzman MD Status:ADM COLE Location: [place] [address] HPI History of Present Illness Chief Complaint: Confusion Informant: patient and spouse/S.O. Narrative Narrative: 84-year-old male presenting to the emergency room chief complaint of confusion cough. Patient was seen in the emergency room last night was felt to have a possible esophageal foreign body which resolved. His states that he was doing a lot of vomiting prior to the resolution. In the interim since returning home he has developed a cough confusion and fever (101 per EMS). states that he seemed very unsteady on his feet. states that he is normally very healthy active individual. No further vomiting. No diarrhea. He was noted to be hypoxic down to 86% without oxygen on my examination. He readily comes up to the low 90s with 2 L. Patient has a history of bladder cancer patient has frequent urination because of that. He has a history of coronary artery disease. He denies any chest pain. He reportedly had esophageal dilatation about 2 years ago. [facility] Medical History Wears glasses Wears partial dentures Alcohol use Thyroid disease High cholesterol Former smoker History of echocardiogram History of stress test Cardiology follow-up encounter History of heart attack Pure hypercholesterolemia Essential hypertension Bladder cancer Hyperlipidemia Hypertension Atherosclerotic heart disease of [place] coronary artery without angina pectoris Home Medications ???Medication ???Instructions ???Recorded ???Last Taken ???Type atorvastatin 40 mg tablet 40 mg PO QHS #90 tabs 05/31/19 Rx acetaminophen 325 mg tablet 650 mg (2 x 325 mg) PO Q4H PRN PRN 11/23/21 Unknown Rx (Tylenol) Pain 1-10 Or Fever #0 tabs nitroglycerin 0.4 mg sublingual 0.4 mg sublingual Q5-15M 12/18/23 Unknown History tablet ramipril 5 mg capsule 5 mg PO QDAY 12/18/23 01/12/24 His tory aspirin 81 mg tablet,delayed 81 mg PO DAILY 03/26/24 Unknown Hi story release (Adult Low Dose Aspirin) levothyroxine 100 mcg tablet 100 mcg PO MOTUWETHFRSA 03/26/24 U nknown History Allergy/AdvReac Type Severity Reaction Status Date / Time No Known Allergies Allergy Verified 09/24/24 08:29 Family History Father CAD (coronary artery disease) Myocardial infarction, Onset Age: 56 Grandmother Heart disease Uncle Heart disease Surgical History History of left heart catheterization ( 12/2023) History of robot-assisted laparoscopic radical prostatectomy ( 02/18/24) Hx of right cataract extraction Hx of left cataract extraction History of esophagogastroduodenoscopy (EGD) Hx of bladder repair surgery History of cardiac catheterization History of appendectomy History of cystoscopy Postsurgical percutaneous transluminal coronary angioplasty (PTCA) status ( 09/07/01) Presence of stent in coronary artery ( 06/26/18) 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) Social History Smoking Status: Former smoker how long ago did patient quit smokin years ago alcohol intake: current alcohol intake frequency: 0-2 drinks per day Alcohol type: beer substance use type: does not use caffeine: Yes Type: carbonated beverages Number of servings: 2 ROS ROS ED Constitutional Constitutional ED: Reports fever(s); Denies chills or weight loss Eyes Eyes: Denies change in vision or diplopia ENT ENT ED: Reports sore throat; Denies ear pain or rhinorrhea Cardiovascular Cardiovascular: Denies chest pain, orthopnea, palpitations or racing heartbeat Respiratory/Chest Respiratory/Chest: Reports cough; Denies dyspnea or orthopnea Gastrointestinal Gastrointestinal: Denies abdominal pain, diarrhea, nausea or vomiting Genitourinary Genitourinary ED: Denies dysuria, hematuria or urinary frequency Musculoskeletal Musculoskeletal: Denies arthralgias or myalgias Integumentary Denies abscess or rash Neurologic Neurologic: Reports other Details: Confusion ; Denies headache(s) or weakness Psychiatric Psychiatric: Denies anxiety, depression, suicidal ideation or suicidal thoughts Endocrine Endocrinology: Denies polydipsia, polyphagia or polyuria Allergic/Immunologic Allergic/Immunologic ED: Denies mouth swelling, tongue swelling or urticaria EXAM Physical Exam Const Vital Signs: 09/24/24 08:23 09/24/24 08:27 08/29 (more content not included)... Normal [facility] Emergency Department Summary [facility] Medical Records Department [address] [place] [address] Emergency Department Summary 09/24/24 MR#: [id number] Acct: [id number] Name: RUDDY RANDOLPH Rep #: [id number] : 1940 84 From: Austin Rivera DO PCP: Dr. Tl Guzman MD Status:DEP ER Location: ED HPI History of Present Illness Chief Complaint: Foreign Body Informant: patient, spouse/S.O. and family Narrative Narrative: Patient is an 84-year-old male with past medical history of hypertension hyperlipidemia and hypothyroidism as well as previous esophageal stricture requiring dilation roughly 2 years ago.patient states this evening he ate a apple freighter and then a part of an orange and he states after this he felt that the food was stuck in his upper throat and he had bouts of vomiting and then afterwards could not swallow food or water. He denies any shortness of breath but states as he feels the food is stuck he presents for evaluation. [facility] Medical History (Reviewed 03/26/24 @ 11:09 by Malik Avalos EVENT MARKETING MANAGER, EVENT MARKETING MANAGER-C) Wears glasses Wears partial dentures Alcohol use Thyroid disease High cholesterol Former smoker History of echocardiogram History of stress test Cardiology follow-up encounter History of heart attack Pure hypercholesterolemia Essential hypertension Bladder cancer Hyperlipidemia Hypertension Atherosclerotic heart disease of [place] coronary artery without angina pectoris Home Medications ???Medication ???Instructions ???Recorded ???Last Taken ???Type atorvastatin 40 mg tablet 40 mg PO QHS #90 tabs 05/31/19 Rx acetaminophen 325 mg tablet 650 mg (2 x 325 mg) PO Q4H PRN PRN 11/23/21 Unknown Rx (Tylenol) Pain 1-10 Or Fever #0 tabs nitroglycerin 0.4 mg sublingual 0.4 mg sublingual Q5-15M 12/18/23 Unknown History tablet ramipril 5 mg capsule 5 mg PO QDAY 12/18/23 01/12/24 His tory aspirin 81 mg tablet,delayed 81 mg PO DAILY 03/26/24 Unknown Hi story release (Adult Low Dose Aspirin) levothyroxine 100 mcg tablet 100 mcg PO MOTUWETHFRSA 03/26/24 U nknown History Allergy/AdvReac Type Severity Reaction Status Date / Time No Known Allergies Allergy Verified 09/23/24 23:52 Family History (Reviewed 03/26/24 @ 11:09 by Malik Avalos EVENT MARKETING MANAGER, EVENT MARKETING MANAGER-C) Father CAD (coronary artery disease) Myocardial infarction, Onset Age: 56 Grandmother Heart disease Uncle Heart disease Surgical History (Reviewed 03/26/24 @ 11:09 by Malik Avalos EVENT MARKETING MANAGER, EVENT MARKETING MANAGER-C) History of left heart catheterization ( 12/2023) History of robot-assisted laparoscopic radical prostatectomy ( 02/18/24) Hx of right cataract extraction Hx of left cataract extraction History of esophagogastroduodenoscopy (EGD) Hx of bladder repair surgery History of cardiac catheterization History of appendectomy History of cystoscopy Postsurgical percutaneous transluminal coronary angioplasty (PTCA) status ( 09/07/01) Presence of stent in coronary artery ( 06/26/18) 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) Social History (Reviewed 03/26/24 @ 11:09 by Malik Avalos EVENT MARKETING MANAGER, EVENT MARKETING MANAGER-C) Smoking Status: Former smoker how long ago did patient quit smokin years ago alcohol intake: current alcohol intake frequency: 0-2 drinks per day Alcohol type: beer substance use type: does not use caffeine: Yes Type: carbonated beverages Number of servings: 2 ROS ROS ED Constitutional Constitutional ED: Denies chills or fever(s) Eyes Eyes: Denies change in vision ENT ENT ED: Reports sore throat Cardiovascular Cardiovascular: Denies chest pain Respiratory/Chest Respiratory/Chest: Denies cough or dyspnea Gastrointestinal Gastrointestinal: Reports nausea and vomiting; Denies abdominal pain or diarrhea Genitourinary Genitourinary ED: Denies dysuria Musculoskeletal Musculoskeletal: Reports neck pain Integumentary Denies rash Neurologic Neurologic: Denies headache(s) Hematologic/Lymphatic Hematologic/Lymphatic: Denies easy bleeding or easy bruising Allergic/Immunologic Allergic/Immunologic ED: Denies mouth swelling or tongue swelling EXAM Physical Exam Const Vital Signs: 09/23/24 23:52 09/24/24 00:52 09/24/24 01:00 Temperature 97.2 F L Temperature Source Temporal Pulse Rate 71 68 71 Respiratory Rate 17 15 20 H Respiratory Effort Respiratory Pattern Blood Pressure 209/75 H 190/91 H 154/115 H Blood Pressure Mean 119 124 128 Pulse Ox 100 98 95 Oxygen Delivery Method Room Air Room Air Room Air 09/24/24 01:17 09/24/24 02:00 09/24/24 02:00 Temperature Temperature Source Pulse Rate 74 73 Respiratory Rate 20 H 16 Respiratory Effort Normal Respiratory Pattern Normal Blood Pressure 171/99 H 171/99 H Blood Pressure Mean 123 123 Pulse Ox 91 96 Oxygen Delivery Met (more content not included)... Normal [facility] Epithelial cells.squamous LM Ql (Urine sed)Ordered By: Tate Meneses on 09-24-2024 Epithelial cells.squamous LM.HPF (Urine sed) [#/Area] 0 /[HPF] 0-5 [facility] Glucose Ql (U)Ordered By: Silas Meneses on 09-24-2024 Urine Glucose (UA) Normal mg/dl Normal [facility] H AND P Exam - [facility] 09-24-2024 H&P Exam - Hospitalist [facility] Medical Records Department [address] [place] [address] H P Exam - Hospitalist 09/24/24 1643 MR#: [id number] Acct: [id number] Name: RUDDY RANDOLPH Rep #: [id number] : 1940 84 From: Suresh Aranda DO PCP: Dr. Tl Guzman MD Status:ADM COLE Location: [facility] LO626-7 HPI - General General Date of Admission: 09/24/24 Date of Service: 09/24/24 Chief Complaint: Fever, confusion HPI Narrative RUDDY RANDOLPH, is a 84 M who presents to the emergency room at [facility] for evaluation of confusion and elevated temperature this morning at home. He was seen last night at the emergency room at [facility] after he choked on some food, symptoms however resolved, his had stated that he was having some vomiting prior to the resolution of his symptoms. Upon returning home however, patient developed a cough, confusion and fever and the stated that he was unsteady on his feet. On examination, the patient was noted to be hypoxic at 86% on room air, he maintained a pulse ox in the low 90s with 2 L of nasal cannula oxygen however. Labs obtained in the emergency room showed a white blood cell count of 3.9, hemoglobin was 9.9, chemistry profile showed a creatinine of 1.54 and a BUN of 21, chest x-ray showed no acute abnormality, CTA of the chest showed no evidence of pulmonary emboli there were findings suggestive of scarring at the lung bases as well as in the right middle lobe. No focal infiltrate was seen. Patient will be placed in observation status on MedSur 3, he will be seen by speech therapy, patient was given Unasyn in the emergency room and this will be continued on MedSurg. Patient will receive aerosol treatments. [facility] Medical History Wears glasses Wears partial dentures Alcohol use Thyroid disease High cholesterol Former smoker History of echocardiogram History of stress test Cardiology follow-up encounter History of heart attack Pure hypercholesterolemia Essential hypertension Bladder cancer Hyperlipidemia Hypertension Atherosclerotic heart disease of [place] coronary artery without angina pectoris Home Medications ???Medication ???Instructions ???Recorded ???Last Taken ???Type atorvastatin 40 mg tablet 40 mg PO QHS #90 tabs 05/31/19 Rx acetaminophen 325 mg tablet 650 mg (2 x 325 mg) PO Q4H PRN PRN 11/23/21 Unknown Rx (Tylenol) Pain 1-10 Or Fever #0 tabs nitroglycerin 0.4 mg sublingual 0.4 mg sublingual Q5-15M 12/18/23 Unknown History tablet ramipril 5 mg capsule 5 mg PO QDAY 12/18/23 01/12/24 His tory aspirin 81 mg tablet,delayed 81 mg PO DAILY 03/26/24 Unknown Hi story release (Adult Low Dose Aspirin) levothyroxine 100 mcg tablet 100 mcg PO MOTUWETHFRSA 03/26/24 U nknown History Allergy/AdvReac Type Severity Reaction Status Date / Time No Known Allergies Allergy Verified 09/24/24 08:29 Family History Father CAD (coronary artery disease) Myocardial infarction, Onset Age: 56 Grandmother Heart disease Uncle Heart disease Surgical History History of left heart catheterization ( 12/2023) History of robot-assisted laparoscopic radical prostatectomy ( 02/18/24) Hx of right cataract extraction Hx of left cataract extraction History of esophagogastroduodenoscopy (EGD) Hx of bladder repair surgery History of cardiac catheterization History of appendectomy History of cystoscopy Postsurgical percutaneous transluminal coronary angioplasty (PTCA) status ( 09/07/01) Presence of stent in coronary artery ( 06/26/18) 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) Social History Smoking Status: Former smoker how long ago did patient quit smokin years ago alcohol intake: current alcohol intake frequency: 0-2 drinks per day Alcohol type: beer substance use type: does not use caffeine: Yes Type: carbonated beverages Number of servings: 2 ROS Constitutional Constitutional: Reports fever(s); Denies anorexia, change in weight, chills, fatigue, night sweats or weakness Eyes Eyes: Denies blurry vision, change in vision, discharge from eye(s) or eye pain Cardiovascular Cardiovascular: Denies chest pain, claudication, dyspnea on exertion, edema or palpitations Respiratory/Chest Respiratory/Chest: Reports cough; Denies hemoptysis, shortness of breath at rest or shortness of breath with exertion Gastrointestinal Gastrointestinal: Denies abdominal pain, constipation, diarrhea, hematemesis, hematochezia, melena, nausea or vomiting Genitourinary Genitourinary: Denies dysuria, hematuria, urinary frequency, urinar (more content not included)... [facility] Influenza virus A and B and SARS-CoV-2 (COVID-19) and Respiratory syncytial virus RNAOrdered By: Tate Meneses on 09-24-2024 SARS-CoV-2 (COVID-19) RNA JESU+probe Ql (Unsp spec) [facility] [employer] normalized rat io (INR) calculationOrdered By: Tate Meneses on 09-24-2024 INR Coag (Bld) [Relative time] 1.1 {INR} [facility] Ketones Test strip Ql (U)Ord ered By: Tate Meneses on 09-24-2024 Ketones Ql (U) Negative Negative [facility] - Chemistry and C hemistry - challengeOrdered By: Tate Meneses on 09-24-2024 AST [Catalytic activity/Vol] 17 U/L <38 [facility] Lactic Acidon 09-24-2024 Lactate [Moles/Vol] 1.9 mmol/L Normal 0.0-2.0 [facility] Comment on above: Order Comment: Y Performed By: #### L 500.4050, M200.1000, L503.6005, L100.0100, L300.3900 ####[facility] [address] [place], [address] Lactic acid measurementOrder ed By: Tate Meneses on 09-24-2024 Lactate [Moles/Vol] 1.9 mmol/L 0.0-2.0 [facility] M100.678on 09-24-2024 M100.678 Normal Reference Ran ge = Negative FLUABV+SARS-CoV-2+RSV Pnl Resp JESU+probe GeneXpert Instrument, PCR method SARS-CoV-2 (COVID 19) Negative INFLUENZA A Negative INFLUENZA B Negative RSV PCR Negative Normal [facility] Comment on above: Performed By: #### M 100.678, L400.0001, M100.2200 ####[facility] [address] [place], [address] MR/CON.PCM.GIon 09-24-2024 MR/CON.PCM.GI [facility] Medical Records Department [address] [place] [address] Consultation - GI 09/24/24 1833 MR#: [id number] Acct: [id number] Name: RUDDY RANDOLPH Rep #: [id number] : 1940 84 From: Tomas Khan DO PCP: Dr. Tl Guzman MD Status:ADM COLE Location: [place] [address] HPI Consult Data Date of Consult: 09/24/24 HPI Narrative Reason for Consultation: Foreign body HPI Narrative: RUDDY RANDOLPH, is a 84-year-old male with past medical history of hypertension hyperlipidemia and hypothyroidism as well as previous esophageal stricture requiring dilation roughly 2 years ago. Patient states this evening he ate a apple freighter and then a part of an orange and he states after this he felt that the food was stuck in his upper throat and he had bouts of vomiting and then afterwards could not swallow food or water. He denies any shortness of breath but states as he feels the food is stuck he presents for evaluation. [facility] Medical History Wears glasses Wears partial dentures Alcohol use Thyroid disease High cholesterol Former smoker History of echocardiogram History of stress test Cardiology follow-up encounter History of heart attack Pure hypercholesterolemia Essential hypertension Bladder cancer Hyperlipidemia Hypertension Atherosclerotic heart disease of [place] coronary artery without angina pectoris Home Medications ???Medication ???Instructions ???Recorded ???Last Taken ???Type atorvastatin 40 mg tablet 40 mg PO QHS #90 tabs 05/31/19 Rx acetaminophen 325 mg tablet 650 mg (2 x 325 mg) PO Q4H PRN PRN 11/23/21 Unknown Rx (Tylenol) Pain 1-10 Or Fever #0 tabs nitroglycerin 0.4 mg sublingual 0.4 mg sublingual Q5-15M 12/18/23 Unknown History tablet ramipril 5 mg capsule 5 mg PO QDAY 12/18/23 01/12/24 His tory aspirin 81 mg tablet,delayed 81 mg PO DAILY 03/26/24 Unknown Hi story release (Adult Low Dose Aspirin) levothyroxine 100 mcg tablet 100 mcg PO MOTUWETHFRSA 03/26/24 U nknown History Allergy/AdvReac Type Severity Reaction Status Date / Time No Known Allergies Allergy Verified 09/24/24 08:29 Family History Father CAD (coronary artery disease) Myocardial infarction, Onset Age: 56 Grandmother Heart disease Uncle Heart disease Surgical History History of left heart catheterization ( 12/2023) History of robot-assisted laparoscopic radical prostatectomy ( 02/18/24) Hx of right cataract extraction Hx of left cataract extraction History of esophagogastroduodenoscopy (EGD) Hx of bladder repair surgery History of cardiac catheterization History of appendectomy History of cystoscopy Postsurgical percutaneous transluminal coronary angioplasty (PTCA) status ( 09/07/01) Presence of stent in coronary artery ( 06/26/18) 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) Social History Smoking Status: Former smoker how long ago did patient quit smokin years ago alcohol intake: current alcohol intake frequency: 0-2 drinks per day Alcohol type: beer substance use type: does not use caffeine: Yes Type: carbonated beverages Number of servings: 2 ROS Constitutional Constitutional: Denies fatigue, fever(s), poor appetite, weight gain or weight loss Gastrointestinal Gastrointestinal: Denies belching, bloating, change in bowel habits, change in stool character, chewing difficulty, coffee ground emesis, constipation, cramping, diarrhea, dyspepsia, dysphagia, early satiety, excessive flatus, fecal incontinence, heartburn, hematemesis, hematochezia, hemorrhoids, loose stools, melena, nausea, odynophagia, rectal bleeding, tenesmus, vomiting or weight changes Physical Exam Const alert, oriented x3, no apparent distress and healthy appearing General Appearance: cooperative GI normal to inspection, nondistended, normoactive bowel sounds, soft to palpation, non-tender and non- distended Percussion: normal to percussion Rectal Exam: deferred Lab / Micro Data 09/24/24 09:24 09/24/24 11:45 Labs: Laboratory Results - last 24 hr 09/24/24 09:12: Urine Color Yellow, Urine Clarity Clear, Urine pH 5.0, Ur Specific [place] 1.015, U rine Protein 30 H, Urine Glucose (UA) Normal, Urine Ketones Negative, Urine Occult Blood 250 H, Urine Nitrite Negative, Urine Bilirubin Negative, Urine Urobilinogen Normal, Ur Leukocyte Esterase 25 H, Urine RBC 10-25 SEEN, Urine WBC 5-10 SEEN, Ur Squamous Epith Cells 0-5 SEEN, Urine Bacteria RARE, Urine Mucus 0 SEEN 09/24/24 09:24: WBC 3.9 L, RBC 3.13 L, Hgb 9.9 L, Hct 28.0 L, MCV 89.5, MCH 31.6, MCHC 35.4, RDW Std Deviat (more content not included)... Normal [facility] MR/POSTOP.[facility] 09-24-2024 MR/POSTOP.[facility] Medical Records Department [address] [place] [address] Anesthesia Postop Eval I 09/24/241907 MR#: [id number] Acct: [id number] Name: RUDDY RANDOLPH Rep #: [id number] : 1940 84 From: Jose Antonio Cooper MD PCP: Dr. Tl Guzman MD Status:ADM COLE Y Race: C Location: [place] [address] Anesthesia: Postop Eval I Current Vital Signs Temperature: 98.7 F Pulse Rate: 95 Blood Pressure: 121/83 Respiratory Rate: 18 Pulse Ox: 95 Assessment Airway patent: Yes Spontaneous unlabored respirations: Yes nausea: No Vomiting: No Anesthesia Complication: No Fluid Hydration Crystalloid volume administer (ml): 10 Total IV fluid infused: 10 Progress Note Anesthesia document: Postop Eval 1 completed: Yes 09/24/241909 Date Jose Antonio Soto Signature: Date CC: Signed Normal [facility] [id number] 09-24-2024 MR/POSTOPAN2 [facility] Medical Records Department [address] [place] [address] Anesthesia Postop Eval II 09/24/241909 MR#: [id number] Acct: [id number] Name: RUDDY RANDOLPH Rep #: [id number] : 1940 84 From: Jose Antonio Cooper MD PCP: Dr. Tl Guzman MD Status:ADM COLE Y Race: C Location: [place] [address]1 Anesthesia Postop Eval I Sum Postop Eval Completion status Anesthesia document: Postop Eval 1 completed: Yes Anesthesia Postop Eval I Summary Anesthesia Postop Eval I Summary: Anesthesia Postop Eval I: Assessment Summary Airway patent Yes 09/24/24 19:08 Spontaneous unlabored Yes 09/24/24 19:08 respirations Mental status nausea No 09/24/24 19:08 Vomiting No 09/24/24 19:08 Anesthesia Postop Eval I: Fluid Summary Crystalloid volume administer 10 09/24/24 19:08 (ml) Colloids volume administered ( ml) Blood Product volume administered (ml) Total IV fluid infused 10 09/24/24 19:08 Anesthesia Postop Eval I: Summary Notes Anesthesia Complication No 09/24/24 19:08 Anesthesia Complication Comment: Post-operative progress note Anesthesia: Postop Eval II Evaluation Mental status: Awake Pain Level: 0 nausea: No Vomiting: No 09/24/241909 Date Jose Antonio Marcigner Signature: Date CC: Signed Normal [facility] Magnesiumon 09-24-2024 Magnesium [Mass/Vol] 1.5 mg/dL Normal 1.5-2.2 [facility] Comment on above: Performed By: #### L 501.5200 #### [facility] [address] [place], [place], [address] Magnesium [Mass/Vol] 0.9 mg/dL Invalid Interpretation Code 1.5-2.2 [facility] Comment on above: Result Comment: Crit ical Result(s) Called at 1152: by: Saritha Mcgee to Torri.??Results read back by same. Performed By: #### L 501.5200 ####[facility] [address] [place], [place], [id number] Magnesium (Unsp spec) [Mass/ Vol]Ordered By: Tate Meneses on 09-24-2024 Magnesium [Mass/Vol] 1.5 mg/dL 1.5-2.2 [facility] Microscopic analysis of urin e for red blood cells (RBC)Ordered By: Tate Meneses on 09-24-2024 Urine RBC 10-25 SEEN /hpf 0-5 [facility] Mucus LM Ql (Urine sed)Order ed By: Tate Meneses on 09-24-2024 Mucus Ql (Urine sed) 0 SEEN /hpf [facility] Nitrite Test strip Ql (U)Ord ered By: Tate Meneses on 09-24-2024 Nitrite Ql (U) Negative Negative [facility] Partial Thromboplast Timeon 09-24-2024 aPTT Coag (Bld) [Time] 23.6 s Low 24.1-36.2 [facility] Comment on above: Performed By: #### P SUIV #### [facility] [address] [place], [address] Protein Test strip Ql (U)Ord ered By: Tate Meneses on 09-24-2024 Protein Ql (U) 30 mg/dl High Negative [facility] Prothrombin Time w/INRon INR Coag (PPP) [Relative time] 1.1 {INR} Normal [facility] Comment on above: Performed By: #### P SUIV #### [facility] [address] [place], [address] PT Coag (PPP) [Time] 14.9 s Normal 11.7-14.9 [facility] Comment on above: Performed By: #### P SUIV #### [facility] [address] [place], [address] INR Normal [facility] Comment on above: Result Comment: MARBIN ROWLAND, SPOKE WITH AYAAN Performed By: #### L 500.4050, M200.1000, L503.6005, L100.0100, L300.3900 ####[facility] [address] [place], [address] PROTIME Normal 11.7-14.9 [facility] Comment on above: Result Comment: MARBIN ROWLAND SPOKE WITH AYAAN Performed By: #### L 500.4050, M200.1000, L503.6005, L100.0100, L300.3900 ####[facility] [address] [place], [address] Prothrombin timeOrdered By: Tate Meneses on 09-24-2024 PT Coag (PPP) [Time] 14.9 s 11.7-14.9 [facility] Serum globulin measurementOr dered By: Tate Meneses on 09-24-2024 Globulin (S) [Mass/Vol] 1.1 g/dL Low 2.2-4.2 [facility] Serum or plasma alanine soler otransferase (ALT) measurementOrdered By: Tate Meneses on 09-24-2024 ALT [Catalytic activity/Vol] 10 U/L <47 [facility] Serum or plasma albumin rosana urement (mass/volume)Ordered By: Tate Meneses on 09-24-2024 Albumin [Mass/Vol] 2.3 g/dL Low 3.4-4.8 [facility] Serum or plasma albumin/glob ulin mass ratioOrdered By: Tate Meneses on 09-24-2024 Albumin/Globulin [Mass ratio] 2.1 {ratio} 0.9-2.4 [facility] Serum or plasma alkaline riana sphatase measurementOrdered By: Tate Meneses on 09-24-2024 ALP [Catalytic activity/Vol] 40 U/L 40-129 [facility] Surgery Specimen Level Eul[place] 09-24-2024 Surgery Specimen Level IV -------- Patient Age/Sex Location Account Attending Physician -------- RUDDY RANDOLPH 84/M MS3 [id number] Dr. Suresh Aranda, DO -------- Specimen: [id number] Received: 09/27/24 Status: VESTA Leblanc Num: [id number] Spec Type: EGD BIOPSY Subm Dr: Tomas Khan DO HEADER OPERATION: EGD with biopsies and ablation PRE-OP DIAGNOSIS: Aspiration into airway TISSUE SUBMITTED: Distal esophagus biopsy -------- MICROSCOPIC DIAGNOSIS Esophagus, distal, biopsy: * Squamous mucosa with reactive changes. * Columnar mucosa with squamous metaplasia, negative for goblet cell metaplasia. MICROSCOPIC DESCRIPTION Slides are reviewed. GROSS DESCRIPTION Received in fixative is one container labeled with the patient's name and designated Distal esophagus biopsy. The specimen consists of one irregular fragment of light clark soft tissue that measures 1.7 x 0.3 x 0.2 cm. The specimen is totally submitted in one cassette. 09/27/2024 TC: CPT:80163 -------- Patient Age/Sex Location Account Attending Physician -------- RUDDY RANDOLPH 84/M MS3 [id number] Dr. Suresh Aranda DO -------- Signed (signature on file) Dr. Kimberly Medrano MD 09/28/24 1530 -------- Normal [facility] Comment on above: Performed By: #### P SUIV #### [facility] [address] [facility] [place], [address] TSH DL <= 0.005 mIU/L QnOrde red By: Don Collier on 09-24-2024 Thyroid Stimulating Hormone (TSH) 2.500 uIU/mL 0.300-4.20 0 [facility] Thyroid Stim Hormone (TSH)on 09-24-2024 TSH 2.500 uIU/mL Normal 0.300-4.20 0 [facility] Comment on above: Order Comment: Comme nts: please add on to prev. drawn labs. Performed By: #### L 501.9520 ####[facility] [address] [facility] [place], [address] Total proteinOrdered By: Jenaro Meneses on 09-24-2024 Protein [Mass/Vol] 3.5 g/dL Low 5.9-8.4 [facility] Urinalysis, Completeon 09-24 BACTERIA RARE Normal None Seen [facility] Comment on above: Order Comment: COLLE CTOR TO SPECIFY Performed By: #### M 100.678, L400.0001, M100.2200 ####[facility] [address] [place], [address] EPI,SQUAMOUS 0-5 SEEN Normal 0-5 [facility] Comment on above: Order Comment: LEX CTOR TO SPECIFY Performed By: #### M 100.678, L400.0001, M100.2200 ####[facility] [address] [place], [address] RBC 10-25 SEEN Normal 0-5 [facility] Comment on above: Order Comment: LEX CTOR TO SPECIFY Performed By: #### M 100.678, L400.0001, M100.2200 ####[facility] [address] [place], [address] WBC 5-10 SEEN Normal 0-5 [facility] Comment on above: Order Comment: LEX CTOR TO SPECIFY Performed By: #### M 100.678, L400.0001, M100.2200 ####[facility] [address] [place], [address] Mucus Ql (Urine sed) 0 SEEN Normal [facility] Comment on above: Order Comment: LEX CTOR TO SPECIFY Performed By: #### M 100.678, L400.0001, M100.2200 ####[facility] [address] [place], [address] Urine blood detectionOrdered By: Tate Meneses on 09-24-2024 Urine Occult Blood 250 /ul High Negative [facility] Urine clarityOrdered By: Jenaro Meneses on 09-24-2024 Clarity (U) Clear Clear [facility] Urine color determinationOrd ered By: Tate Meneses on 09-24-2024 Color (U) Yellow Yellow [facility] Urine cultureOrdered By: Jenaro Meneses on 09-24-2024 Bacteria identified Cx Nom (U) Culture exhibits no growth. [facility] Urine leukocyte esterase det ection by dipstickOrdered By: Tate Meneses on 09-24-2024 Leukocyte esterase Test strip Ql (U) 25 /ul High Negative [facility] Urine pHOrdered By: Tate valladares on 09-24-2024 pH (U) 5.0 [pH] 5.0 - 8.0 [facility] Urine specific gravity measu rementOrdered By: Tate Meneses on 09-24-2024 Specific gravity (U) [Rel density] 1.015 1.002-1.03 0 [facility] Urobilinogen Ql (U)Ordered B y: Tate Meneses on 09-24-2024 Urine Urobilinogen Normal mg/dl Normal [facility] White blood cell countOrdere d By: Tate Meneses on 09-24-2024 Urine WBC 5-10 SEEN /hpf 0-5 [facility] aPTT Coag (PPP) [Time]Ordere d By: Tate Meneses on 09-24-2024 aPTT Coag (Bld) [Time] 23.6 s Low 24.1-36.2 [facility] Urine Cultureon 05-22-2024 [facility] Order Date: 05/20/24 Order Info: 630-4 - CUUR Culture exhibits no growth. Normal [facility] Comment on above: Performed By: #### M 100.2200, L400.0001 ####[facility] [address] [place], [place], [address] Urinalysis, Completeon 05-21 BACTERIA 1+ /hpf Normal None Seen [facility] Comment on above: Order Comment: Order Date: 05/20/24Order Info: [id number] - UACCOLLECTOR TO SPECIFY Performed By: #### M 100.2200, L400.0001 ####[facility] [address] [place], [address] WBC 5-10 SEEN Normal 0-5 [facility] Comment on above: Order Comment: Order Date: 05/20/24Order Info: [id number] - UACCOLLECTOR TO SPECIFY Performed By: #### M 100.2200, L400.0001 ####[facility] [address] [place], [address] EPI,SQUAMOUS 0-5 SEEN Normal 0-5 [facility] Comment on above: Order Comment: Order Date: 05/20/24Order Info: [id number] - UACCOLLECTOR TO SPECIFY Performed By: #### M 100.2200, L400.0001 ####[facility] [address] [place], [address] RBC 25-50 SEEN Normal 0-5 [facility] Comment on above: Order Comment: Order Date: 05/20/24Order Info: [id number] - UACCOLLECTOR TO SPECIFY Performed By: #### M 100.2200, L400.0001 ####[facility] [address] [place], [address] Mucus Ql (Urine sed) 0 SEEN Normal [facility] Comment on above: Order Comment: Order Date: 05/20/24Order Info: [id number] - UACCOLLECTOR TO SPECIFY Performed By: #### M 100.2200, L400.0001 ####[facility] [address] [place], [address] Basophil percentageOrdered B y: Robson Guzman on 09-15-2023 Bilirubin [Mass/Vol] 1.50 mg/dL 0.20-1.00 [facility] Comment on above: For patients on eltr ombopag therapy, use of Dimension [place] TBIL is not recommended. Chloride [Moles/Vol] 110 mmol/L 98-107 [facility] Glucose [Mass/Vol] 98 mg/dL 74-106 [facility] Hemoglobin (Bld) [Mass/Vol] 13.8 g/dL 13.0-16.5 [facility] Potassium [Moles/Vol] 4.1 mmol/L 3.5-5.1 [facility] Protein [Mass/Vol] 7.0 g/dL 6.4-8.2 [facility] Sodium [Moles/Vol] 139 mmol/L 136-145 [facility] WBC (Bld) [#/Vol] 7.6 10*3/uL 4.4-11.0 [facility] Determination of erythrocyte mean corpuscular volume (MCV)Ordered By: Robson Guzman on 09-15-2023 MCV (RBC) [Entitic vol] 90.4 fL 80-94 [facility] Erythrocyte distribution wid th ratioOrdered By: Robson Guzman on 09-15-2023 Erythrocyte distribution width (RBC) [Ratio] 13.2 % 11.6-14.6 [facility] Erythrocyte distribution wid th standard deviationOrdered By: Robosn Guzman on 09-15-2023 Erythrocyte distribution width (RBC) [Entitic vol] 43.2 fL 35.1-43.9 [facility] Hematocrit Auto (Bld) [Volum e fraction]Ordered By: Robson Guzman on 09-15-2023 Hematocrit (Bld) [Volume fraction] 40.4 % 40-54 [facility] - Chemistry and C hemistry - challengeOrdered By: Robson Guzman on 09-15-2023 Albumin/Globulin [Mass ratio] 1.3 {ratio} 0.9-2.4 [facility] ALP [Catalytic activity/Vol] 94 U/L 45-117 [facility] ALT [Catalytic activity/Vol] 36 U/L 16-61 [facility] CO2 [Moles/Vol] 26.0 mmol/L 21.0-32.0 [facility] Globulin (S) [Mass/Vol] 3.1 g/dL 2.2-4.2 [facility] Magnesium [Mass/Vol] 2.0 mg/dL 1.6-2.6 [facility] Urea nitrogen/Creatinine [Mass ratio] 14.3 mg/mg 10-20 [facility] - Hematology and Cell countsOrdered By: Robson Guzman on 09-15-2023 MCH (RBC) [Entitic mass] 30.9 pg 27.0-32.0 [facility] MCHC (RBC) [Mass/Vol] 34.2 g/dL 32-36 [facility] Platelet mean volume (Bld) [Entitic vol] 8.3 fL 6.2-12.0 [facility] Platelets (Bld) [#/Vol] 201 10*3/uL 150-450 [facility] No Panel InformationOrdered By: Robson Guzman on 09-15-2023 Estimated GFR (MDRD) Amer 70 mL/min >60 [facility] Comment on above: GFR Calc Estimated GFR (MDRD) Non-Af Amer 58 mL/min >60 [facility] Comment on above: Non- GFR Calc Troponin I High Sensitivity 48 pg/mL 3.0-78.0 [facility] Comment on above: Please Note: [place] t Units and Gender Specific Reference Ranges. For more information see Policy Stat Procedure [place] High Sensitivity Troponin (TNIH) and attachments. RBC Auto (Bld) [#/Vol]Ordere d By: Robson Guzman on 09-15-2023 RBC (Bld) [#/Vol] 4.47 10*6/uL 4.6-6.2 [facility] Serum or plasma calcium rosana urement (mass/volume)Ordered By: Robson Guzman on 09-15-2023 Calcium [Mass/Vol] 9.2 mg/dL 8.5-10.1 [facility] Serum or plasma creatinine m easurement (mass/volume)Ordered By: Robson Guzman on 09-15-2023 Creatinine [Mass/Vol] 1.26 mg/dL 0.70-1.30 [facility] Comment on above: The validity of the calculated GFR & GFRAA in patients over 70 years has not been determined. Clinical correlation is essential. Serum or plasma thyroid stim ulating hormone (TSH) measurement (units/volume)Ordered By: Robson Guzman on 09-15-2023 TSH Qn 2.03 uIU/mL 0.358-3.74 [facility] Serum or plasma urea nitroge n measurement (mass/volume)Ordered By: Robson Guzman on 09-15-2023 Urea nitrogen [Mass/Vol] 18 mg/dL 7-18 [facility] Thin prep Papanicolaou smear with manual screeningOrdered By: Robson Guzman on 09-15-2023 Thin prep Papanicolaou smear with manual screening 3.9 g/dL 3.2-5.0 [facility] Thin prep Papanicolaou smear with manual screening 18 U/L 15-37 [facility] Thin prep Papanicolaou smear with manual screening 3 5-15 [facility] Absolute lymphocyte countOrd ered By: Jethro Ch on 08-05-2023 Lymphocytes Auto (Unsp spec) [#/Vol] 1.56 10*3/uL 0.83-4.51 [facility] Basophil percentageOrdered B y: Jethro Ch on 08-05-2023 Basophils/100 WBC (Bld) 0.5 % 0-1 [facility] Chloride [Moles/Vol] 111 mmol/L 98-107 [facility] Eosinophils/100 WBC (Bld) 2.7 % 0-5 [facility] Glucose [Mass/Vol] 114 mg/dL 74-106 [facility] Comment on above: Fasting Glucose resu lt from 100 to 125 mg/dL suggests IMPAIRED HOMEOSTASIS per A.D.A. criteria. Neutrophils (Bld) [#/Vol] 4.8 10*3/uL 2.0-7.7 [facility] Neutrophils/100 WBC (Bld) 66.0 % 47-70 [facility] Potassium [Moles/Vol] 3.8 mmol/L 3.5-5.1 [facility] Sodium [Moles/Vol] 141 mmol/L 136-145 [facility] WBC (Bld) [#/Vol] 7.3 10*3/uL 4.4-11.0 [facility] Blood erythrocytes count (nu mber/volume)Ordered By: Jethro Ch on 08-05-2023 RBC (Bld) [#/Vol] 4.41 10*6/uL 4.6-6.2 [facility] Blood hemoglobin measurement (mass/volume)Ordered By: Jethro Ch on 08-05-2023 Hemoglobin (Bld) [Mass/Vol] 14.0 g/dL 13.0-16.5 [facility] Blood lymphocytes/100 leukoc ytesOrdered By: Jethro Ch on 08-05-2023 Lymphocytes/100 WBC (Bld) 21.3 % 19-41 [facility] Blood monocytes/100 leukocyt esOrdered By: Jethro Ch on 08-05-2023 Monocytes/100 WBC (Bld) 9.4 % 0-10 [facility] Blood platelet mean volumeOr dered By: Jethro Ch on 08-05-2023 Platelet mean volume (Bld) [Entitic vol] 8.4 fL 6.2-12.0 [facility] Determination of erythrocyte mean corpuscular volume (MCV)Ordered By: Jethro Ch on 08-05-2023 MCV (RBC) [Entitic vol] 89.1 fL 80-94 [facility] Hematocrit Auto (Bld) [Volum e fraction]Ordered By: Jethro Ch on 08-05-2023 Hematocrit (Bld) [Volume fraction] 39.3 % 40-54 [facility] - Chemistry and C hemistry - challengeOrdered By: Jethro Ch on 08-05-2023 CO2 [Moles/Vol] 26.0 mmol/L 21.0-32.0 [facility] Urea nitrogen/Creatinine [Mass ratio] 13.5 mg/mg 10-20 [facility] - Hematology and Cell countsOrdered By: Jethro Ch on 08-05-2023 Erythrocyte distribution width (RBC) [Entitic vol] 42.9 fL 35.1-43.9 [facility] Erythrocyte distribution width (RBC) [Ratio] 13.2 % 11.6-14.6 [facility] Immature granulocytes/100 WBC (Bld) 0.100 % 0.0-0.9 [facility] Comment on above: IG% - Immature Granu locytes (promyelocytes, myelocytes and metamyelocytes) > 1% indicates that a LEFT SHIFT is Present. MCH (RBC) [Entitic mass] 31.7 pg 27.0-32.0 [facility] Nucleated RBC/100 WBC (Bld) [Ratio] 0 % 0-5 [facility] MCHC Auto (RBC) [Mass/Vol]Or dered By: Jethro Ch on 08-05-2023 MCHC (RBC) [Mass/Vol] 35.6 g/dL 32-36 [facility] No Panel InformationOrdered By: Jethro hC on 08-05-2023 Estimated GFR (MDRD) Amer 82 mL/min >60 [facility] Comment on above: GFR Calc Estimated GFR (MDRD) Non-Af Amer 67 mL/min >60 [facility] Comment on above: Non- GFR Calc Thyroid Stimulating Hormone (TSH) 1.98 uIU/mL 0.358-3.74 [facility] Platelets bldOrdered By: Jethro Ch on 08-05-2023 Platelets (Bld) [#/Vol] 231 10*3/uL 150-450 [facility] Serum or plasma calcium rosana urement (mass/volume)Ordered By: Jethro Ch on 08-05-2023 Calcium [Mass/Vol] 9.1 mg/dL 8.5-10.1 [facility] Serum or plasma creatinine m easurement (mass/volume)Ordered By: Jethro Ch on 08-05-2023 Creatinine [Mass/Vol] 1.11 mg/dL 0.70-1.30 [facility] Comment on above: The validity of the calculated GFR & GFRAA in patients over 70 years has not been determined. Clinical correlation is essential. Serum or plasma urea nitroge n measurement (mass/volume)Ordered By: Jethro Ch on 08-05-2023 Urea nitrogen [Mass/Vol] 15 mg/dL 7-18 [facility] Thin prep Papanicolaou smear with manual screeningOrdered By: Jethro Ch on 08-05-2023 Thin prep Papanicolaou smear with manual screening 4 5-15 [facility] - Chemistry and C hemistry - challengeOrdered By: Robson Guzman on 06-12-2023 Free T4 [Mass/Vol] 1.44 ng/dL 0.76-1.46 [facility] No Panel InformationOrdered By: Robson Guzman on 06-12-2023 Thyroid Stimulating Hormone (TSH) 0.86 uIU/mL 0.358-3.74 [facility] Absolute lymphocyte countOrd ered By: Jose Antonio Martinez on 04-28-2023 Lymphocytes Auto (Unsp spec) [#/Vol] 1.70 10*3/uL 0.83-4.51 [facility] Amorphous sediment detection in urine sediment by light microscopyOrdered By: Jose Antonio Martinez on 04-28-2023 Amorphous sediment LM Ql (Urine sed) 1+ URATE [facility] Basophil percentageOrdered B y: Jose Antonio Martinez on 04-28-2023 Basophil percentage 10-25 SEEN /hpf 0-5 [facility] Basophils/100 WBC (Bld) 0.9 % 0-1 [facility] Chloride [Moles/Vol] 113 mmol/L 98-107 [facility] Eosinophils/100 WBC (Bld) 4.0 % 0-5 [facility] Glucose [Mass/Vol] 98 mg/dL 74-106 [facility] Neutrophils (Bld) [#/Vol] 3.2 10*3/uL 2.0-7.7 [facility] Neutrophils/100 WBC (Bld) 56.1 % 47-70 [facility] Potassium [Moles/Vol] 3.6 mmol/L 3.5-5.1 [facility] Sodium [Moles/Vol] 144 mmol/L 136-145 [facility] WBC (Bld) [#/Vol] 5.8 10*3/uL 4.4-11.0 [facility] Bilirubin Test strip Ql (U)O rdered By: Jose Antonio Martinez on 04-28-2023 Bilirubin Ql (U) Negative Negative [facility] Blood erythrocytes count (nu mber/volume)Ordered By: Jose Antonio Martinez on 04-28-2023 RBC (Bld) [#/Vol] 4.15 10*6/uL 4.6-6.2 [facility] Blood hemoglobin measurement (mass/volume)Ordered By: Jose Antonio Martinez on 04-28-2023 Hemoglobin (Bld) [Mass/Vol] 13.4 g/dL 13.0-16.5 [facility] Blood lymphocytes/100 leukoc ytesOrdered By: Jose Antonio Martinez on 04-28-2023 Lymphocytes/100 WBC (Bld) 29.6 % 19-41 [facility] Blood monocytes/100 leukocyt esOrdered By: Jose Antonio Martinez on 04-28-2023 Monocytes/100 WBC (Bld) 9.2 % 0-10 [facility] Blood platelet mean volumeOr dered By: Jose Antonio Martinez on 04-28-2023 Platelet mean volume (Bld) [Entitic vol] 9.0 fL 6.2-12.0 [facility] Determination of erythrocyte mean corpuscular volume (MCV)Ordered By: Jose Antonio Martinez on 04-28-2023 MCV (RBC) [Entitic vol] 90.1 fL 80-94 [facility] Hematocrit Auto (Bld) [Volum e fraction]Ordered By: Jose Antonio Martinez on 04-28-2023 Hematocrit (Bld) [Volume fraction] 37.4 % 40-54 [facility] Ketones Test strip Ql (U)Ord ered By: Jose Antonio Martinez on 04-28-2023 Ketones Ql (U) Negative Negative [facility] - Chemistry and C hemistry - challengeOrdered By: Jose Antonio Martinez on 04-28-2023 CO2 [Moles/Vol] 21.0 mmol/L 21.0-32.0 [facility] Urea nitrogen/Creatinine [Mass ratio] 13.3 mg/mg 10-20 [facility] - Hematology and Cell countsOrdered By: Jose Antonio Martinez on 04-28-2023 Erythrocyte distribution width (RBC) [Entitic vol] 44.4 fL 35.1-43.9 [facility] Erythrocyte distribution width (RBC) [Ratio] 13.4 % 11.6-14.6 [facility] Immature granulocytes/100 WBC (Bld) 0.200 % 0.0-0.9 [facility] Comment on above: IG% - Immature Granu locytes (promyelocytes, myelocytes and metamyelocytes) > 1% indicates that a LEFT SHIFT is Present. MCH (RBC) [Entitic mass] 32.3 pg 27.0-32.0 [facility] Nucleated RBC/100 WBC (Bld) [Ratio] 0 % 0-5 [facility] MCHC Auto (RBC) [Mass/Vol]Or dered By: Jose Antonio Martinez on 04-28-2023 MCHC (RBC) [Mass/Vol] 35.8 g/dL 32-36 [facility] Mucus LM Ql (Urine sed)Order ed By: Jose Antonio Martinez on 04-28-2023 Mucus Ql (Urine sed) 0 SEEN /hpf [facility] Nitrite Test strip Ql (U)Ord ered By: Jose Antonio Martinez on 04-28-2023 Nitrite Ql (U) Negative Negative [facility] No Panel InformationOrdered By: Jose Antonio Martinez on 04-28-2023 Troponin I High Sensitivity 57 pg/mL 3.0-78.0 [facility] Comment on above: Please Note: New [place] t Units and Gender Specific Reference Ranges. For more information see Policy Stat Procedure [place] High Sensitivity Troponin (TNIH) and attachments. Estimated GFR (MDRD) Amer 80 mL/min >60 [facility] Comment on above: GFR Calc Estimated GFR (MDRD) Non-Af Amer 66 mL/min >60 [facility] Comment on above: Non- GFR Calc Platelets bldOrdered By: Pushpa Martinez on 04-28-2023 Platelets (Bld) [#/Vol] 167 10*3/uL 150-450 [facility] Protein Test strip Ql (U)Ord ered By: Jose Antonio Martinez on 04-28-2023 Protein Ql (U) 30 mg/dl Negative [facility] Serum or plasma calcium rosana urement (mass/volume)Ordered By: Jose Antonio Martinez on 04-28-2023 Calcium [Mass/Vol] 8.6 mg/dL 8.5-10.1 [facility] Serum or plasma creatinine m easurement (mass/volume)Ordered By: Jose Antonio Martinez on 04-28-2023 Creatinine [Mass/Vol] 1.13 mg/dL 0.70-1.30 [facility] Comment on above: The validity of the calculated GFR & GFRAA in patients over 70 years has not been determined. Clinical correlation is essential. Serum or plasma urea nitroge n measurement (mass/volume)Ordered By: Jose Antonio Martinez on 04-28-2023 Urea nitrogen [Mass/Vol] 15 mg/dL 7-18 [facility] Squamous epithelial cells de tection in urine sediment by light microscopyOrdered By: Jose Antonio Martinez on 04-28-2023 Epithelial cells.squamous LM Ql (Urine sed) 0-5 SEEN /hpf 0-5 [facility] Thin prep Papanicolaou smear with manual screeningOrdered By: Jose Antonio Martinez on 04-28-2023 Thin prep Papanicolaou smear with manual screening 10 5-15 [facility] Urine blood detectionOrdered By: Jose Antonio Martinez on 04-28-2023 RBC Ql (U) 250 /ul Negative [facility] RBC Ql (U) 10-25 SEEN /hpf 0-5 [facility] Urine clarityOrdered By: Pushpa Martinez on 04-28-2023 Clarity (U) Sl. Cloudy Clear [facility] Urine color determinationOrd ered By: Jose Antonio Martinez on 04-28-2023 Color (U) Yellow Yellow [facility] Urine glucose detectionOrder ed By: Jose Antonio Martinez on 04-28-2023 Glucose Ql (U) Normal mg/dl Normal [facility] Urine leukocyte esterase det ection by dipstickOrdered By: Jose Antonio Martinez on 04-28-2023 Leukocyte esterase Test strip Ql (U) 100 /ul Negative [facility] Urine pHOrdered By: Jose Antonio kim on 04-28-2023 pH (U) 5.0 [pH] 5.0 - 8.0 [facility] Urine sediment bacteria coun t by microscopy (number/high power field)Ordered By: Jose Antonio Martinez on 04-28-2023 Bacteria LM.HPF (Urine sed) [#/Area] RARE /hpf None Seen [facility] Urine specific gravity measu rementOrdered By: Jose Antonio Martinez on 04-28-2023 Specific gravity (U) [Rel density] 1.010 1.002-1.03 0 [facility] Urobilinogen Auto test strip Ql (U)Ordered By: Jose Antonio Martinez on 04-28-2023 Urobilinogen Ql (U) Normal mg/dl Normal [facility] Culture, urineOrdered By: Dr Peg Murphy on 01-11-2023 Bacteria identified Cx Nom (U) Culture exhibits no growth. [facility] Basophil percentageOrdered B y: Dr. Guzman on 12-09-2022 Bilirubin [Mass/Vol] 1.70 mg/dL 0.20-1.00 [facility] Comment on above: For patients on eltr ombopag therapy, use of Dimension [place] TBIL is not recommended. Chloride [Moles/Vol] 110 mmol/L 98-107 [facility] Glucose [Mass/Vol] 99 mg/dL 74-106 [facility] Potassium [Moles/Vol] 4.3 mmol/L 3.5-5.1 [facility] Protein [Mass/Vol] 7.1 g/dL 6.4-8.2 [facility] Sodium [Moles/Vol] 143 mmol/L 136-145 [facility] WBC (Bld) [#/Vol] 5.1 10*3/uL 4.4-11.0 [facility] Blood erythrocytes count (nu mber/volume)Ordered By: Dr. Guzman on 12-09-2022 RBC (Bld) [#/Vol] 4.78 10*6/uL 4.6-6.2 [facility] Blood hemoglobin measurement (mass/volume)Ordered By: Dr. Guzman on 12-09-2022 Hemoglobin (Bld) [Mass/Vol] 14.9 g/dL 13.0-16.5 [facility] Blood platelet mean volumeOr dered By: Dr. Guzman on 12-09-2022 Platelet mean volume (Bld) [Entitic vol] 8.7 fL 6.2-12.0 [facility] Determination of erythrocyte mean corpuscular volume (MCV)Ordered By: Dr. Guzman on 12-09-2022 MCV (RBC) [Entitic vol] 90.4 fL 80-94 [facility] Hematocrit Auto (Bld) [Volum e fraction]Ordered By: Dr. Guzman on 12-09-2022 Hematocrit (Bld) [Volume fraction] 43.2 % 40-54 [facility] - Chemistry and C hemistry - challengeOrdered By: Dr. Guzman on 12-09-2022 ALP [Catalytic activity/Vol] 98 U/L 45-117 [facility] ALT [Catalytic activity/Vol] 35 U/L 16-61 [facility] CO2 [Moles/Vol] 28.0 mmol/L 21.0-32.0 [facility] Free T4 [Mass/Vol] 1.04 ng/dL 0.76-1.46 [facility] Globulin (S) [Mass/Vol] 3.1 g/dL 2.2-4.2 [facility] Urea nitrogen/Creatinine [Mass ratio] 14.0 mg/mg 10-20 [facility] - Hematology and Cell countsOrdered By: Dr. Guzman on 12-09-2022 Erythrocyte distribution width (RBC) [Entitic vol] 42.7 fL 35.1-43.9 [facility] Erythrocyte distribution width (RBC) [Ratio] 13.0 % 11.6-14.6 [facility] MCH (RBC) [Entitic mass] 31.2 [facility] 27.0-32.0 [facility] [Mass/Vol]Or dered By: Dr. Guzman on 12-09-2022 MCHC (RBC) [Mass/Vol] 34.5 g/dL 32-36 [facility] No Panel InformationOrdered By: Dr. Guzman on 12-09-2022 Estimated GFR (MDRD) Amer 110 mL/min >60 [facility] Comment on above: GFR Calc Estimated GFR (MDRD) Non-Af Amer 91 mL/min >60 [facility] Comment on above: Non- GFR Calc Prostate Specific Antigen Total 0.19 ng/mL 0.0-4.0 [facility] Comment on above: This test was perfor med using the TPSA assay method for [employer] chemistry system. Values obtained with differentassay methods cannot be used interchangably.When changing PSA assays in the course of monitoring apatient, additional sequential testing should be carriedout to confirm baseline values. Thyroid Stimulating Hormone (TSH) 1.38 uIU/mL 0.358-3.74 [facility] Platelets bldOrdered By: Dr. Guzman on 12-09-2022 Platelets (Bld) [#/Vol] 196 10*3/uL 150-450 [facility] Serum or plasma albumin rosana urement (mass/volume)Ordered By: Dr. Guzman on 12-09-2022 Albumin [Mass/Vol] 4.0 g/dL 3.2-5.0 [facility] Serum or plasma albumin/glob ulin mass ratioOrdered By: Dr. Guzman on 12-09-2022 Albumin/Globulin [Mass ratio] 1.3 {ratio} 0.9-2.4 [facility] Serum or plasma calcium rosana urement (mass/volume)Ordered By: Dr. Guzman on 12-09-2022 Calcium [Mass/Vol] 9.3 mg/dL 8.5-10.1 [facility] Serum or plasma creatinine m easurement (mass/volume)Ordered By: Dr. Guzman on 12-09-2022 Creatinine [Mass/Vol] 0.86 mg/dL 0.70-1.30 [facility] Comment on above: The validity of the calculated GFR & GFRAA in patients over 70 years has not been determined. Clinical correlation is essential. Serum or plasma urea nitroge n measurement (mass/volume)Ordered By: Dr. Guzman on 12-09-2022 Urea nitrogen [Mass/Vol] 12 mg/dL 7-18 [facility] Thin prep Papanicolaou smear with manual screeningOrdered By: Dr. Guzman on 12-09-2022 Thin prep Papanicolaou smear with manual screening 26 U/L 15- [facility] Thin prep Papanicolaou smear with manual screening 5 5-15 [facility] Culture, urineOrdered By: Dr Peg Murphy on 10-03-2022 Bacteria identified Cx Nom (U) Culture exhibits no growth. [facility] Basophil percentageon 2021 Bilirubin [Mass/Vol] 2.00 mg/dL 0.20-1.00 [facility] Work Phone: Comment on above: For patients on eltr ombopag therapy, use of Dimension [place] TBIL is not recommended. Chloride [Moles/Vol] 109 mmol/L 98-107 [facility] Work Phone: Cholesterol [Mass/Vol] 94 mg/dL <200 [facility] Work Phone: Comment on above: <200 mg/dL Desirable 200-240 mg/dL Borderline >240 mg/dL High Risk Glucose [Mass/Vol] 109 mg/dL 74-106 [facility] Work Phone: Comment on above: Fasting Glucose resu lt from 100 to 125 mg/dL suggests IMPAIRED HOMEOSTASIS per A.D.A. criteria. Potassium [Moles/Vol] 4.4 mmol/L 3.5-5.1 [facility] Work Phone: Protein [Mass/Vol] 7.1 g/dL 6.4-8.2 [facility] Work Phone: Sodium [Moles/Vol] 140 mmol/L 136-145 [facility] Work Phone: Triglyceride [Mass/Vol] 53 mg/dL [facility] Work Phone: Comment on above: The drugs N-Acetylcy steine and Metamizole may falsely depress this assay.Serum Triglycerides Reference Interval Normal <150 mg/dL Borderline high 150 - 199 mg/dL High 200 - 499 mg/dL Very High > or = 500 mg/dL Laboratory - Chemistry and C hemistry - challengeon 12-10-2021 ALP [Catalytic activity/Vol] 98 U/L 45-117 [facility] Work Phone: ALT [Catalytic activity/Vol] 31 U/L 16-61 [facility] Work Phone: CO2 [Moles/Vol] 22.0 mmol/L 21.0-32.0 [facility] Work Phone: Free T4 [Mass/Vol] 1.41 ng/dL 0.76-1.46 [facility] Work Phone: Globulin (S) [Mass/Vol] 3.1 g/dL 2.2-4.2 [facility] Work Phone: Urea nitrogen/Creatinine [Mass ratio] 19.8 mg/mg 10-20 [facility] Work Phone: No Panel Informationon 12-10 Estimated GFR (MDRD) Amer 97 mL/min >60 [facility] Work Phone: Comment on above: GFR Calc Estimated GFR (MDRD) Non-Af Amer 80 mL/min >60 [facility] Work Phone: Comment on above: Non- GFR Calc Thyroid Stimulating Hormone (TSH) 2.72 uIU/mL 0.358-3.74 [facility] Work Phone: Serum or plasma albumin rosana urement (mass/volume)on 12-10-2021 Albumin [Mass/Vol] 4.0 g/dL 3.2-5.0 [facility] Work Phone: Serum or plasma albumin/glob ulin mass ratioon 12-10-2021 Albumin/Globulin [Mass ratio] 1.3 {ratio} 0.9-2.4 [facility] Work Phone: Serum or plasma calcium rosana urement (mass/volume)on 12-10-2021 Calcium [Mass/Vol] 8.8 mg/dL 8.5-10.1 [facility] Work Phone: Serum or plasma cholesterol in HDL measurement (mass/volume)on 12-10-2021 Cholesterol in HDL [Mass/Vol] 45 mg/dL [facility] Work Phone: Comment on above: The drugs N-Acetylcy steine and Metamizole may falsely depress this assay. Reference Range HDL <40 mg/dL Low HDL Cholesterol HDL >or= 60 mg/dL High HDL Cholesterol Serum or plasma cholesterol in VLDL measurement (mass/volume)on 12-10-2021 Cholesterol in VLDL [Mass/Vol] 11 mg/dL 5-40 [facility] Work Phone: Serum or plasma creatinine m easurement (mass/volume)on 12-10-2021 Creatinine [Mass/Vol] 0.96 mg/dL 0.70-1.30 [facility] Work Phone: Comment on above: The validity of the calculated GFR & GFRAA in patients over 70 years has not been determined. Clinical correlation is essential. Serum or plasma low density lipoprotein (LDL) cholesterol measurement (mass/volume)on 12-10-2021 Cholesterol in LDL [Mass/Vol] 38 mg/dL 0-130 [facility] Work Phone: Serum or plasma urea nitroge n measurement (mass/volume)on 12-10-2021 Urea nitrogen [Mass/Vol] 19 mg/dL 7-18 [facility] Work Phone: Thin prep Papanicolaou smear with manual screeningon 12-10-2021 Thin prep Papanicolaou smear with manual screening 25 U/L 15-37 [facility] Work Phone: Thin prep Papanicolaou smear with manual screening 9 5-15 [facility] Work Phone: Absolute lymphocyte counton 11-23-2021 Lymphocytes Auto (Unsp spec) [#/Vol] 0.56 10*3/uL 0.83-4.51 [facility] Work Phone: Basophil percentageon 2021 Basophils/100 WBC (Bld) 0.1 % 0-1 [facility] Work Phone: Chloride [Moles/Vol] 111 mmol/L 98-107 [facility] Work Phone: Eosinophils/100 WBC (Bld) 0.0 % 0-5 [facility] Work Phone: Glucose [Mass/Vol] 141 mg/dL 74-106 [facility] Work Phone: Comment on above: Fasting Glucose resu lt greater than or equal to 126 mg/dL suggests DIABETES MELLITUS per A.D.A. criteria. Neutrophils (Bld) [#/Vol] 8.2 10*3/uL 2.0-7.7 [facility] Work Phone: Neutrophils/100 WBC (Bld) 84.2 % 47-70 [facility] Work Phone: Potassium [Moles/Vol] 4.0 mmol/L 3.5-5.1 [facility] Work Phone: Sodium [Moles/Vol] 139 mmol/L 136-145 [facility] Work Phone: WBC (Bld) [#/Vol] 9.8 10*3/uL 4.4-11.0 [facility] Work Phone: Blood erythrocytes count (nu mber/volume)on 11-23-2021 RBC (Bld) [#/Vol] 3.98 10*6/uL 4.6-6.2 [facility] Work Phone: Blood hemoglobin measurement (mass/volume)on 11-23-2021 Hemoglobin (Bld) [Mass/Vol] 12.4 g/dL 13.0-16.5 [facility] Work Phone: Blood lymphocytes/100 leukoc yteson 11-23-2021 Lymphocytes/100 WBC (Bld) 5.7 % 19-41 [facility] Work Phone: Blood manual differential co mment interpretation (narrative result)on 11-23-2021 Manual differential comment Regan (Bld) [Interp] SCANNED [facility] Work Phone: Comment on above: LYMPHOPENIA NOTED Blood monocytes/100 leukocyt eson 11-23-2021 Monocytes/100 WBC (Bld) 9.4 % 0-10 [facility] Work Phone: Blood platelet mean volumeon 11-23-2021 Platelet mean volume (Bld) [Entitic vol] 8.5 fL 6.2-12.0 [facility] Work Phone: Determination of erythrocyte mean corpuscular volume (MCV)on 11-23-2021 MCV (RBC) [Entitic vol] 88.7 fL 80-94 [facility] Work Phone: Hematocrit Auto (Bld) [Volum e fraction]on 11-23-2021 Hematocrit (Bld) [Volume fraction] 35.3 % 40-54 [facility] Work Phone: Laboratory - Chemistry and C hemistry - challengeon 11-23-2021 CO2 [Moles/Vol] 23.0 mmol/L 21.0-32.0 [facility] Work Phone: Urea nitrogen/Creatinine [Mass ratio] 15.9 mg/mg 10-20 [facility] Work Phone: Laboratory - Hematology and Cell countson 11-23-2021 Erythrocyte distribution width (RBC) [Entitic vol] 43.3 fL 35.1-43.9 [facility] Work Phone: Erythrocyte distribution width (RBC) [Ratio] 13.1 % 11.6-14.6 [facility] Work Phone: Immature granulocytes/100 WBC (Bld) 0.600 % 0.0-0.9 [facility] Work Phone: Comment on above: IG% - Immature Granu locytes (promyelocytes, myelocytes and metamyelocytes) > 1% indicates that a LEFT SHIFT is Present. MCH (RBC) [Entitic mass] 31.2 pg 27.0-32.0 [facility] Work Phone: Nucleated RBC/100 WBC (Bld) [Ratio] 0 % 0-5 [facility] Work Phone: MCHC Auto (RBC) [Mass/Vol]on 11-23-2021 MCHC (RBC) [Mass/Vol] 35.1 g/dL 32-36 [facility] Work Phone: No Panel Informationon 11-23 Estimated Creatinine Clearance Calc 64.04 ml/min [facility] Work Phone: Estimated GFR (MDRD) Amer 98 mL/min >60 [facility] Work Phone: Comment on above: GFR Calc Estimated GFR (MDRD) Non-Af Amer 81 mL/min >60 [facility] Work Phone: Comment on above: Non- GFR Calc Platelets bldon 11-23-2021 Platelets (Bld) [#/Vol] 183 10*3/uL 150-450 [facility] Work Phone: Serum or plasma calcium rosana urement (mass/volume)on 11-23-2021 Calcium [Mass/Vol] 8.3 mg/dL 8.5-10.1 [facility] Work Phone: Serum or plasma creatinine m easurement (mass/volume)on 11-23-2021 Creatinine [Mass/Vol] 0.95 mg/dL 0.70-1.30 [facility] Work Phone: Comment on above: The validity of the calculated GFR & GFRAA in patients over 70 years has not been determined. Clinical correlation is essential. Serum or plasma urea nitroge n measurement (mass/volume)on 11-23-2021 Urea nitrogen [Mass/Vol] 15 mg/dL 7-18 [facility] Work Phone: Thin prep Papanicolaou smear with manual screeningon 11-23-2021 Thin prep Papanicolaou smear with manual screening 5 5-15 [facility] Work Phone: Basophil percentageon 2021 Basophil percentage 0-5 SEEN /hpf [facility] Work Phone: Bilirubin [Mass/Vol] 1.90 mg/dL 0.20-1.00 [facility] Work Phone: Comment on above: For patients on eltr ombopag therapy, use of Dimension [place] TBIL is not recommended. Protein [Mass/Vol] 6.9 g/dL 6.4-8.2 [facility] Work Phone: Bilirubin Test strip Ql (U)o n 11-21-2021 Bilirubin Ql (U) Negative Negative [facility] Work Phone: Calcium oxalate crystals det ection in urine sediment by light microscopyon 11-21-2021 Calcium oxalate crystals LM Ql (Urine sed) 1+ /hpf [facility] Work Phone: Direct bilirubinon 2 Bilirubin.direct [Mass/Vol] 0.43 mg/dL 0.00-0.30 [facility] Work Phone: Ketones Test strip Ql (U)on 11-21-2021 Ketones Ql (U) Negative Negative [facility] Work Phone: Laboratory - Chemistry and C hemistry - challengeon 11-21-2021 ALP [Catalytic activity/Vol] 100 U/L 45-117 [facility] Work Phone: ALT [Catalytic activity/Vol] 28 U/L 16-61 [facility] Work Phone: Globulin (S) [Mass/Vol] 3.2 g/dL 2.2-4.2 [facility] Work Phone: Lipase [Catalytic activity/Vol] 100 U/L 73-393 [facility] Work Phone: Mucus LM Ql (Urine sed)on Mucus Ql (Urine sed) 0 SEEN /hpf [facility] Work Phone: Nitrite Test strip Ql (U)on 04-27-2022 Nitrite Ql (U) Negative Negative [facility] Work Phone: Protein Test strip Ql (U)on 11-21-2021 Protein Ql (U) Negative Negative [facility] Work Phone: Serum or plasma albumin rosana urement (mass/volume)on 11-21-2021 Albumin [Mass/Vol] 3.7 g/dL 3.2-5.0 [facility] Work Phone: Squamous epithelial cells de tection in urine sediment by light microscopyon 11-21-2021 Epithelial cells.squamous LM Ql (Urine sed) 0 SEEN /hpf [facility] Work Phone: Thin prep Papanicolaou smear with manual screeningon 11-21-2021 Thin prep Papanicolaou smear with manual screening 16 U/L 15-37 [facility] Work Phone: Urine blood detectionon 10-27 RBC Ql (U) 10 /ul Negative [facility] Work Phone: RBC Ql (U) 0 SEEN /hpf [facility] Work Phone: Urine clarityon 11-21-2021 Clarity (U) Clear Clear [facility] Work Phone: Urine color determinationon 11-21-2021 Color (U) Yellow Yellow [facility] Work Phone: Urine glucose detectionon Glucose Ql (U) Normal mg/dl Normal [facility] Work Phone: Urine leukocyte esterase det ection by dipstickon 11-21-2021 Leukocyte esterase Test strip Ql (U) 25 /ul Negative [facility] Work Phone: [phone] Urine pHon 11-21-2021 pH (U) 5.0 [pH] [facility] Work Phone: Urine sediment bacteria coun t by microscopy (number/high power field)on 11-21-2021 Bacteria LM.HPF (Urine sed) [#/Area] RARE /hpf None Seen [facility] Work Phone: Urine specific gravity measu rementon 11-21-2021 Specific gravity (U) [Rel density] 1.020 [facility] Work Phone: Urobilinogen Auto test strip Ql (U)on 11-21-2021 Urobilinogen Ql (U) Normal mg/dl Normal [facility] Work Phone: CNPTOUTREAJackien 08-20-2018 [facility] ([facility]) CHALORUDDY CABEZAS ([id number]) 1940 M Date Time Provider Department 08/20/18 KIMBERLY ROBERTS) [facility] During your visit today, we recorded the following information about you: Kimberly Roberts Ma 08/20/2018 3:37 PM Signed Patient's last office visit was 09/29/2017 and provider wanted to see him back in 6 months around 03/2018. Please call the patient to try to schedule a follow up appointment. Thanks. Kimberly Boland 08/20/2018 3:37 PM Signed Transfer out to [facility] [place]. Angela Boland Allergies As of Date: 08/20/2018 (No Known Allergies) Date Reviewed: 09/29/2017 Reviewed by: Saray Michel Ma - Fully Assessed Reason for Visit: PHMA/Care Gap Outreach [2821] Prescriptions as of 08/20/2018 Sig: ISOSORBIDE MONONITRATE ER 30 * Take 1 [...] once d* Problem List As Of Date 08/20/2018 Noted Resolved Hypertension [I10] INVALID FOR* More... 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 [facility] [place]. Angela Boland Normal [facility] Protein mass conc HNO ID: [id number] Author: Kimberly Roberts Ma Service: (none) Author Type: (none) Type: Progress Notes Filed: 08/20/2018 3:37 PM Note Text: Patient's last office visit was 09/29/2017 and provider wanted to see him back in 6 months around 03/2018. Please call the patient to try to schedule a follow up appointment. Thanks. Kimberly Roberts Ma Normal [facility] Fecal Occult Bld Tston 10-12 Immuno FOB Negative Normal Negative [facility] Comment on above: Result Comment: This test was developed and its performance characteristics determined by [facility]'s Zak Castellano [facility] Pathology and Laboratory [facility] [place] ([facility]). It has not been cleared or approved by the FDA. [facility] is regulated under CLIA as qualified to perform high-complexity testing. This test is used for clinical purposes. It should not be regarded as investigational or for research. Performed By: #### I FOBT #### [place] [address] Basic Metabolic Panlon 09-29 Anion gap molar conc 13 mmol/L Normal 9-18 [facility] Comment on above: Performed By: #### B MP #### [place] [id number] [place] [address] Calcium mass conc 8.9 mg/dL Normal 8.5-10.2 [facility] Comment on above: Performed By: #### B MP #### [place] [address] Chloride molar conc 109 mmol/L High 97-105 [facility] Comment on above: Performed By: #### B MP #### [place] [address] CO2 molar conc 24 mmol/L Normal 22-30 [facility] Comment on above: Performed By: #### B MP #### [place] [address] Creatinine mass conc 0.88 mg/dL Normal 0.73-1.22 [facility] Comment on above: Performed By: #### B MP #### [place] [id number] [place] [address] eGFR- Amer. >60 Normal [facility] Comment on above: Performed By: #### B MP #### [place] [address] GFR/1.73 sq M predicted among non-blacks MDRD vol rate/area (S/P/Bld) mL/min/{1.73_m2} Normal [facility] Comment on above: Result Comment: eGFR (Estimated GFR) Units of [...] accurately reflect actual GFR. Performed By: #### B MP #### [facility] [address] [place] [address] Glucose mass conc 99 mg/dL Normal 74-99 [facility] Comment on above: Result Comment: The [place] Diabetes Association (ADA) provides guidance for cutoff values for fasting glucose and random glucose. The ADA defines fasting as no caloric intake for at least 8 hours. Fasting plasma glucose results between 100 to 125 [...] Standards of Medical Care in Diabetes 2016, [place] Diabetes Association. Diabetes Care. 2016.39(Suppl 1). Performed By: #### B MP #### [facility] [address] [place] [address] Potassium molar conc 4.6 mmol/L Normal 3.7-5.1 [facility] Comment on above: Performed By: #### B MP #### [facility] [address] [place] [address] Sodium molar conc 146 mmol/L High 136-144 [facility] Comment on above: Performed By: #### B MP #### [facility] [address] [place] [address] Urea nitrogen mass conc 13 mg/dL Normal 9-24 [facility] Comment on above: Performed By: #### B MP #### [facility] [address] [place] [address] CNOVon 09-29-2017 CNOV Office Visit ([facility] ) RUDDY RANDOLPH ([id number]) 1940 M Date Time Provider Department 09/29/17 9:00 AM FABIOLA HARRIS [facility] During your visit today, we recorded the [...] no compliance problems. Hypertensive end-organ damage includes CAD/TX. Review of Systems Constitutional: Negative. HENT: Negative. [...] METABOLIC PNL 2. Coronary artery disease involving [place] heart without angina pectoris, unspecified vessel or [...] Z12.11 - FECAL OCCULT BLOOD TEST MD Saray Haji Ma 09/29/2017 9:33 AM Signed Jackierojelio Tomasa presents in office today for Lab Draw. Ordering Provider: Fabiola Harris M.D. Test (s) ordered: BMP (SMA7) Phlebotomy was performed, accessing right antecubital vein. Needle removed intact. Dressing secured. Patient denies discomfort, dizziness, light-headedness or weakness and left the department without assist. Saray Michel Ma 09/29/2017 9:33 AM Signed Addended by: SARAY MICHEL MA on: 09/29/2017 09:33 AM Modules accepted: Orders Referring Provider: SELF [200] Allergies As of Date: 09/29/2017 (No Known Allergies) Date Reviewed: 09/29/2017 Reviewed by: Saray Michel Ma - Fully Assessed Reason for Visit: F/U 6 months [1177] Primary Visit Diagnosis:Essential hypertension [I10] Other Visit Diagnoses:Coronary artery disease involving [place] heart without angina pectoris, unspecified vessel or lesion type [I25.10] Acquired hypothyroidism [E03.9] Malignant neoplasm of urinary bladder, unspecified site (HCC) [C67.9] High cholesterol [E78.00] Screening for colon cancer [Z12.11] Order(s):BASIC METABOLIC PNL [SQBMP] Order #: [id number] FUTURE FECAL OCCULT BLOOD TEST [SQIFOBT] Order #: [id number] FUTURE desonide (DESOWEN) 0.05 % lotionAs directed, twice daily.Disp: 118 mLRfl: 2 BASIC METABOLIC PNL [SQBMP] Order #: [id number] Prescriptions as of 09/29/2017 Sig: DESONIDE 0.05 [...] ear [H91.91] INVALID FOR*03/10/2017 Visit Notes: >> Saray Michel Ma Mon Sep 29, 2017 9:33 AM Status: Signed Ruddy Randolph presents in office today for Lab Draw. Ordering Provider: Fabiola Harris M.D. Test (s) ordered: BMP (SMA7) Phlebotomy was performed, accessing right antecubital vein. Needle removed intact. Dressing secured. Patient denies discomfort, dizziness, light-headedness or weakness and left the department without assist. Saray Michel Ma Prescriptions ordered this encounter Disp Refills Start [...] Status:Closed by FABIOLA HARRIS MD on 09/29/17 Normal [facility] PROGRESSon 09-29-2017 Protein mass conc HNO ID: [id number] Author: Fabiola Harris Service: (none) Author Type: [...] no compliance problems. Hypertensive end-organ damage includes CAD/TX. Review of Systems Constitutional: Negative. HENT: Negative. [...] METABOLIC PNL 2. Coronary artery disease involving [place] heart without angina pectoris, unspecified vessel or [...] FECAL OCCULT BLOOD TEST Fabiola Harris MD [facility] Vital Signs Date Time Vital Sign Value Performing Clinician Faci lity 05-19-2025 09:04-0400 Body height 177.[address] Tl Guzman MD Work Phone: [facility] 05-19-2025 09:04-0400 Body mass index (BMI) [Ratio] 21.1 kg/m2 Dr. Tl Guzman MD Work Phone: [facility] 05-19-2025 09:04-0400 Body weight 66.[address] Tl Guzman MD Work Phone: [facility] 05-19-2025 09:04-0400 Diastolic blood pressure 80 mm[Hg] Dr. Tl Gumzan MD Work Phone: [facility] 05-19-2025 09:04-0400 Heart rate 61 /min Dr. Tl Guzman MD Work Phone: [facility] 05-19-2025 09:04-0400 Respiratory rate 16 /min Dr. Tl Guzman MD Work Phone: [facility] 05-19-2025 09:04-0400 Systolic blood pressure 149 mm[Hg] Dr. Tl Guzman MD Work Phone: [facility] 09-25-2024 09:00-0500 Body temperature 99.6 [degF] Dr. Tl Guzman MD Work Phone: 5(084)718-350658 [place] [address] 09-25-2024 09:00-0500 Diastolic blood pressure 77 mm[Hg] Dr. Tl Guzman MD Work Phone: 4(745)280-385997 [address] 09-25-2024 09:00-0500 Heart rate 92 /min Dr. Tl Guzman MD Work Phone: 3(932)752-811058 [place] [address] 09-25-2024 09:00-0500 Respiratory rate 16 /min Dr. Tl Guzman MD Work Phone: 8(537)783-135179 [place] [address] 09-25-2024 09:00-0500 SaO2% (BldA) [Mass fraction] 94 % Dr. Tl Guzman MD Work Phone: 8(219)921-860179 [place] [address] 09-25-2024 09:00-0500 Systolic blood pressure 158 mm[Hg] Dr. Tl Guzman MD Work Phone: 1(736)078-996679 [place] [address] 09-24-2024 18:37-0500 Inhaled oxygen flow rate 2 L/min Dr. Tl Guzman MD Work Phone: 4(371)206-719979 [place] [address] 09-24-2024 14:43-0500 Body height 177.[address] Tl Guzman MD Work Phone: 4(466)932-328179 [place] [address] 09-24-2024 14:43-0500 Body mass index (BMI) [Ratio] 21.5 kg/m2 Dr. Tl Guzman MD Work Phone: 6(150)512-239579 [place] [address] 09-24-2024 14:43-0500 Body weight 68.[address] Tl Guzman MD Work Phone: 0(973)935-400979 [place] [address] 09-24-2024 02:53-0500 Body temperature 98.3 [degF] Dr. Tl Guzman MD Work Phone: 7(333)019-445779 [place] [address] 09-24-2024 02:53-0500 Diastolic blood pressure 89 mm[Hg] Dr. Tl Guzman MD Work Phone: [facility] 09-24-2024 02:53-0500 Heart rate 77 /min Dr. Tl Guzman MD Work Phone: [facility] 09-24-2024 02:53-0500 Respiratory rate 18 /min Dr. Tl Guzman MD Work Phone: 9(068)004-240858 [place] [address] 09-24-2024 02:53-0500 SaO2% (BldA) [Mass fraction] 92 % Dr. Tl Guzman MD Work Phone: 6(042)161-232758 [place] [address] 09-24-2024 02:53-0500 Systolic blood pressure 188 mm[Hg] Dr. Tl Guzman MD Work Phone: 3(376)313-054797 [address] 09-23-2024 23:52-0500 Body mass index (BMI) [Ratio] 22.4 kg/m2 Dr. Tl Guzman MD Work Phone: 9(486)390-249258 [place] [address] 09-23-2024 23:52-0500 Body weight [address] Tl Guzman MD Work Phone: 4(808)310-362897 [address] 08-16-2023 09:00-0500 Body temperature 97.8 [degF] Dr. Robson Guzman Work Phone: 4(104)069-143658 [place] [address] 08-16-2023 09:00-0500 Diastolic blood pressure 82 mm[Hg] Dr. Robson Guzman Work Phone: [facility] 08-16-2023 09:00-0500 Heart rate 70 /min Dr. Robson Guzman Work Phone: 3(784)839-062158 [place] [address] 08-16-2023 09:00-0500 Respiratory rate 13 /min Dr. Robson Guzman Work Phone: [facility] 08-16-2023 09:00-0500 SaO2% (BldA) [Mass fraction] 100 % Dr. Robson Guzman Work Phone: 0(663)526-997358 [place] [address] 08-16-2023 09:00-0500 Systolic blood pressure 172 mm[Hg] Dr. Robson Guzman Work Phone: [facility] 08-15-2023 14:42-0500 Body height 177.[address] Robson Guzman Work Phone: [facility] 08-15-2023 14:42-0500 Body mass index (BMI) [Ratio] 21.5 kg/m2 Dr. Robson Guzman Work Phone: [facility] 08-15-2023 14:42-0500 Body weight 68.[address] Robson Guzman Work Phone: [facility] 08-15-2023 10:55-0500 Inhaled oxygen flow rate 6 L/min Dr. Robson Guzman Work Phone: [facility] 04-28-2023 20:09-0400 Diastolic blood pressure 86 mm[Hg] [facility] 04-28-2023 20:09-0400 Heart rate 65 /min [facility] 04-28-2023 20:09-0400 Respiratory rate 19 /min [facility] 04-28-2023 20:09-0400 SaO2% (BldA) [Mass fraction] 97 % [facility] 04-28-2023 20:09-0400 Systolic blood pressure 180 mm[Hg] [facility] 04-28-2023 15:11-0400 Body height 177.8 cm [facility] 04-28-2023 15:11-0400 Body temperature 98 [degF] [facility] 01-15-2023 16:56-0400 Body temperature 97.7 [degF] [facility] 01-15-2023 16:56-0400 Diastolic blood pressure 83 mm[Hg] [facility] 01-15-2023 16:56-0400 Heart rate 65 /min [facility] 01-15-2023 16:56-0400 Respiratory rate 18 /min [facility] 01-15-2023 16:56-0400 SaO2% (BldA) [Mass fraction] 98 % [facility] 01-15-2023 16:56-0400 Systolic blood pressure 159 mm[Hg] [facility] 01-15-2023 13:50-0400 Body height 177.8 cm [facility] 01-15-2023 13:50-0400 Body mass index (BMI) [Ratio] 23.2 kg/m2 [facility] 01-15-2023 13:50-0400 Body temperature 97.7 [degF] [facility] 01-15-2023 13:50-0400 Body weight 73.48 kg [facility] 01-15-2023 13:50-0400 Diastolic blood pressure 83 mm[Hg] [facility] 01-15-2023 13:50-0400 Heart rate 65 /min [facility] 01-15-2023 13:50-0400 Respiratory rate 18 /min [facility] 01-15-2023 13:50-0400 SaO2% (BldA) [Mass fraction] 98 % [facility] 01-15-2023 13:50-0400 Systolic blood pressure 159 mm[Hg] [facility] 11-23-2021 08:18-0400 Body temperature 97.6 [degF] Dr. Robson Guzman Work Phone: [facility] Work Phone: 11-23-2021 08:18-0400 Diastolic blood pressure 75 mm[Hg] Dr. Rosbon Guzman Work Phone: [facility] Work Phone: 11-23-2021 08:18-0400 Heart rate 71 /min Dr. Robson Guzman Work Phone: [facility] Work Phone: 11-23-2021 08:18-0400 Respiratory rate 16 /min Dr. Robson Guzman Work Phone: [facility] Work Phone: 11-23-2021 08:18-0400 SaO2% (BldA) [Mass fraction] 98 % Dr. Robson Guzman Work Phone: [facility] Work Phone: 11-23-2021 08:18-0400 Systolic blood pressure 149 mm[Hg] Dr. Robson Guzman Work Phone: [facility] Work Phone: 11-22-2021 06:30-0400 Body height 177.[address] Robson Guzman Work Phone: [facility] Work Phone: 11-22-2021 06:30-0400 Body mass index (BMI) [Ratio] 23.6 kg/m2 Dr. Robson Guzman Work Phone: [facility] Work Phone: 11-22-2021 06:30-0400 Body weight 74.[address] Robson Guzman Work Phone: [facility] Work Phone: 08-20-2021 07:54-0500 Body weight 76.[address] Robson Guzman Work Phone: [facility] Work Phone: 08-20-2021 07:54-0500 Diastolic blood pressure 82 mm[Hg] Dr. Robson Guzman Work Phone: [facility] Work Phone: 08-20-2021 07:54-0500 Heart rate 67 /min Dr. Robson Guzman Work Phone: [facility] Work Phone: 08-20-2021 07:54-0500 Respiratory rate 16 /min Dr. Robson Guzman Work Phone: [facility] Work Phone: 08-20-2021 07:54-0500 Systolic blood pressure 152 mm[Hg] Dr. Robson Guzman Work Phone: [facility] Work Phone: 02-19-2021 10:43-3075 Body mass index (BMI) [Ratio] 23.3 kg/m2 Dr. Robson Guzman Work Phone: [facility] Work Phone: Encounters Encounter Date Encounter Type Care Provider Facility Start: 05-19-2025 End: 05-19-[address] Allen Nelson MD -[facility] Work Phone: Start: 05-19-2025 End: 05-19-2025 ambulatory Allen Nelson Facility:[facility] Start: 11-03-2024 End: 11-03-[address] Tl Guzman MD Work Phone: [facility] Work Phone: Start: 11-03-2024 End: 11-03-[address] Tl Guzman MD -Laboratory, [facility] Start: 11-03-2024 End: 11-03-2024 ambulatory Tl Guzman Facility:[facility] Start: 10-26-2024 End: 10-26-[address] Tl Guzman MD Work Phone: [facility] Work Phone: Start: 10-26-2024 End: 10-26-2024 Patient encounter procedure Keiry Soto -Laboratory Work Phone: Start: 10-25-2024 End: 10-25-2024 Patient encounter procedure Tomas Khan DO -[facility] Work Phone: Start: 10-25-2024 End: 10-26-2024 ambulatory Keiry Soto Facility:[facility] Start: 10-05-2024 End: 10-05-[address] Tl Guzman MD Work Phone: [facility] Work Phone: Start: 10-05-2024 End: 10-05-[address] Tl Guzman MD -Laboratory, [facility] Start: 10-05-2024 End: 10-05-2024 ambulatory Tl Guzman Facility:[facility] Start: 09-25-2024 Non-patient / Non-visit Dr. Suresh Aranda DO -[facility] Work Phone: Start: 09-24-2024 Non-patient / Non-visit Tomas Bill [facility] -[facility] Start: 09-24-2024 Non-patient / Non-visit Dr. Suresh Aranda DO -[facility] Work Phone: Start: 09-24-2024 End: 09-25-2024 ambulatory Suresh Aranda Facility:[facility] Start: 09-24-2024 End: 09-25-2024 Evaluation and management of inpatient Dr. Suresh Aranda DO -[facility] 3 Work Phone: Start: 09-23-2024 End: 09-24-2024 Emergency department patient visit Austin Lauramarci [facility] -Emergency Department Work Phone: Start: 05-21-2024 End: 05-21-2024 ambulatory Tl Guzman Facility:[facility] Start: 01-01-[address] Tl Guzman MD Work Phone: [facility] Start: 01-01-[address] Tl Guzman MD Work Phone: [facility] Start: 10-14-2023 Non-patient / Non-visit Dr. Robson Guzman Work Phone: [facility] Start: 10-14-2023 End: 10-14-[address] Robson Guzman Work Phone: [facility] Work Phone: Start: 10-14-2023 End: 10-14-[address] Robson Guzman Work Phone: [facility] Work Phone: Start: 09-25-2023 End: 09-25-2023 Non-patient / Non-visit Dr. Robson Guzman Work Phone: [facility] Work Phone: Start: 09-25-2023 End: 09-25-[address] Robson Guzman Work Phone: [facility] Work Phone: Start: 09-25-2023 End: 09-25-[address] Rob[facility] Work [facility]: Start: 09-15-2023 End: 09-15-[address] Robson Guzman Work Phone: [facility] Work Phone: Start: 09-15-2023 End: 09-15-[address] Robson Guzman Work Phone: [facility] Work Phone: Start: 08-15-2023 End: 08-16-2023 Evaluation and management of inpatient Dr. Robson Guzman Work Phone: [facility] 3 Work Phone: Start: 08-15-2023 End: 08-16-[address] Robson Guzman Work Phone: [facility] Work Phone: Start: 08-05-2023 End: 08-05-2023 Non-patient / Non-visit Dr. Robson Guzman Work Phone: [facility] Work Phone: Start: 06-12-2023 End: 06-12-2023 ambulatory [facility] Work Phone: Start: 06-12-2023 End: 06-12-2023 Patient encounter procedure [facility] Start: 04-28-2023 End: 04-28-2023 Emergency department patient visit [facility] Work Phone: Start: 01-15-2023 Admission to [facility] Start: 01-15-2023 ambulatory [facility] Work Phone: Start: 01-09-2023 End: 01-09-2023 ambulatory [facility] Work Phone: Start: 01-09-2023 End: 01-09-2023 Patient encounter procedure [facility]Laboratory, Specimen Start: 12-09-2022 End: 12-09-2022 Patient encounter procedure [facility], [facility] Start: 09-30-2022 End: 09-30-2022 ambulatory [facility] Work Phone: Start: 09-30-2022 End: 09-30-2022 Patient encounter procedure [facility]Laboratory, Specimen Start: 12-10-2021 End: 12-10-[address] Robson Guzman Work Phone: [facility] Start: 12-07-2021 End: 12-07-[address] Robson Guzman Work Phone: [facility] Start: 11-23-2021 Non-patient / Non-visit Dr. Robson Guzman Work Phone: [facility] Start: 11-22-2021 Non-patient / Non-visit Dr. Robson Guzman Work Phone: [facility] Start: 11-22-2021 End: 11-23-2021 Evaluation and management of inpatient Dr. Robson Guzman Work Phone: [facility] Start: 08-20-2021 End: 08-20-[address] Robson Guzman Work Phone: [facility] Start: 09-29-2017 End: 09-30-2017 Patient encounter procedure FABIOLA HARRIS [facility] Procedures Date Procedure Procedure Detail Performing Clinician Start: 09-25-2024 X-ray of chest, PA a nd lateral views Dr. Tl Guzman MD Work Phone: Start: 09-24-[address] Rashad Guzman MD Work Phone: Start: 09-24-2024 SARS-CoV-2, Influenz a & RSV (PCR) Dr. Tl Guzman MD Work Phone: Start: 09-24-[address] Rashad Guzman MD Work Phone: Start: 09-24-2024 CT angiography of ch est with contrast Dr. Tl Guzman MD Work Phone: Start: 09-24-2024 Plain chest X-ray Dr. Kenzie Guzman MD Work Phone: Start: 10-14-2023 Radionuclide imaging of perfusion of myocardium under exercise stress Dr. Robson Guzman Work Phone: Start: 08-15-2023 Cysto,Transurethal R esec Bladder,[facility] (Not Applicable) Dr. Robson Guzman Work Phone: Start: 04-28-2023 Plain chest X-ray Start: 04-28-2023 CT of head without contrast Start: 01-15-2023 Plain chest X-ray Start: 01-15-2023 X-ray of soft tissue of neck Start: 11-22-[address] Robson Guzman Work Phone: Start: 11-22-[address] Robson Guzman Work Phone: Start: 11-22-[address] Robson Guzman Work Phone: Start: 11-21-2021 Computed tomography of abdomen and pelvis with intravenous contrast Dr. Robson Guzman Work Phone: Urine culture Urine culture Plan of Treatment Date Care Activity Detail Author Start: 09-25-2024 Patient discharge [facility] Start: 09-24-2024 End: 09-24-2024 Following clinical pathway protocol [facility] Start: 09-24-2024 Referral to gastroenterology service [facility] Start: 09-24-2024 Ambulation without limitation [facility] Start: 09-24-2024 Assessment of risk of venous thromboembolism [facility] Start: 09-24-2024 Catheterization of vein [facility] Start: 09-24-2024 Inhalation therapy procedure [facility] Start: 09-24-2024 Insertion of catheter into peripheral vein [facility] Start: 09-24-2024 Oxygen therapy [facility] Start: 09-24-2024 Providing care according to standard [facility] Start: 09-24-2024 Speech therapy assessment [facility] Start: 09-24-2024 [facility] Start: 09-24-2024 Speech therapy assessment [facility] Start: 09-24-2024 Egd ablate tumor polyp/lesion w/dilation& wire EGD LESION ABLATION [facility] Start: 09-24-2024 Egd flexible foreign body removal EGD REMOVE FOREIGN BODY [facility] Start: 09-24-2024 Egd transoral biopsy single/multiple EGD BIOPSY SINGLE/MULTIPLE [facility] Start: 09-24-2024 Following clinical pathway protocol [facility] Start: 09-24-2024 Admission procedure [facility] Start: 09-24-2024 [facility] Start: 09-24-2024 End: 09-25-2024 [facility] Start: 08-16-2023 Patient discharge [facility] Start: 08-15-2023 Application of intermittent pneumatic compression device [facility] Start: 08-15-2023 Following clinical pathway protocol [facility] Start: 08-15-2023 Anesthesia transurethral resection of prostate ANESTH REMOVAL OF PROSTATE [facility] Start: 08-15-2023 Trurl rescj 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 [facility] Start: 08-15-2023 Deep breathing and coughing exercises [facility] Start: 08-15-2023 Irrigation of urinary bladder [facility] Start: 08-15-2023 Measuring intake and output [facility] Start: 08-15-2023 Patient education [facility] Start: 08-15-2023 Provision of activity privileges [facility] Start: 08-15-2023 Taking patient vital signs [facility] Start: 08-15-2023 Vital signs measurements [facility] Start: 08-15-2023 [facility] Start: 08-15-2023 Admission procedure [facility] Start: 08-15-2023 Patient referral to dietitian [facility] Start: 01-15-2023 Esophagogastroduodenoscopy EGD (MAC) (Not Applicable) [facility] Start: 01-15-2023 Catheterization of vein [facility] Start: 01-15-2023 [facility] Electrocardiographic procedure [facility] Patient Education [facility] Work Phone: Patient referral [facility] Work Phone: Immunizations Immunization Date Immunization Notes Care Provider Fa cility 04-28-2023 influenza, injectabl e, quadrivalent, preservative free Dr. Robson Guzman Work Phone: [facility] 08-01-2020 Covid (Moderna) Dr. Bigg Guzman Work Phone: [facility] 04-27-2018 influenza, injectabl e, quadrivalent, preservative free [facility] 04-27-2018 influenza, seasonal, injectable Dr. Robson Guzman Work Phone: [facility] Payers Date Payer Category Payer Self-pay [id number] 2024 Unknown [id number] 2009 Unknown [id number] 2006 Medicare [id number] Private Health Insurance 101 [id number] Unknown [id number] 2.16.8 [id number] Unknown [id number] 2.16.8 [id number] Unknown [id number] 2.16.8 [id number] Unknown [id number] 2.16.8 [id number] Unknown [id number] 2.16.8 [id number] Unknown [id number] 2.16.8 [id number] Unknown [id number] 2.16.8 [id number] Unknown [id number] 2.16.8 [id number] Unknown [id number] 2.16.8 [id number] Unknown [id number] 2.16.8 [id number] Unknown [id number] 2.16.8 [id number] Social History Date Type Detail Facility Start: 11-22-2021 End: 08-04-2023 Tobacco smoking status MNIS Unknown if ever smoked [facility] Start: 06-12-2019 Spouse/ Signif icant Other [facility] Start: 01-11-2020 Non-smoker [facility] Start: 1940 Sex Assigned At Male [facility] Start: 09-24-2024 End: 09-24-2024 Tobacco smoking status NHIS Ex-smoker (finding) [facility] Start: 10-15-2024 End: 11-09-2024 Sex Male (finding) [facility] Sex Male [facility] Medical Equipment Procedure Code Equipment Code Equipment Original Text Equipment Identifier Dates Robot-assisted laparoscopic radical prostatectomy Ligation clip, synthetic polymer, non-bioabsorbable [id number] FDA Start: 02-18-2024 Appendectomy, laparoscopic NURSING SUPPORT WORKER,CLIP 5MM LIGAMAX FDA Start: 11-22-2021 Appendectomy, laparoscopic RELOAD,STD 45 [id number] FDA Start: 11-22-2021 Appendectomy, laparoscopic NURSING SUPPORT WORKER,CLIP 5MM LIGAMAX FDA Start: 11-22-2021 Appendectomy, laparoscopic RELOAD,STD 45 [id number] FDA Start: 11-22-2021 Appendectomy, laparoscopic NURSING SUPPORT WORKER,CLIP 5MM LIGAMAX FDA Start: 11-22-2021 Appendectomy, laparoscopic RELOAD,STD 45 [id number] FDA Start: 11-22-2021 Appendectomy, laparoscopic NURSING SUPPORT WORKER,CLIP 5MM LIGAMAX FDA Start: 11-22-2021 Appendectomy, laparoscopic RELOAD,STD 45 [id number] FDA Start: 11-22-2021 Appendectomy, laparoscopic NURSING SUPPORT WORKER,CLIP 5MM LIGAMAX FDA Start: 11-22-2021 Appendectomy, laparoscopic RELOAD,STD 45 [id number] FDA Start: 11-22-2021 Appendectomy, laparoscopic NURSING SUPPORT WORKER,CLIP 5MM LIGAMAX FDA Start: 11-22-2021 Appendectomy, laparoscopic RELOAD,STD 45 [id number] FDA Start: 11-22-2021 Appendectomy, laparoscopic NURSING SUPPORT WORKER,CLIP 5MM LIGAMAX FDA Start: 11-22-2021 Appendectomy, laparoscopic RELOAD,STD 45 [id number] FDA Start: 11-22-2021 Appendectomy, laparoscopic NURSING SUPPORT WORKER,CLIP 5MM LIGAMAX FDA Start: 11-22-2021 Appendectomy, laparoscopic RELOAD,STD 45 [id number] FDA Start: 11-22-2021 Appendectomy, laparoscopic NURSING SUPPORT WORKER,CLIP 5MM LIGAMAX FDA Start: 11-22-2021 Appendectomy, laparoscopic RELOAD,STD 45 [id number] FDA Start: 11-22-2021 Appendectomy, laparoscopic NURSING SUPPORT WORKER,CLIP 5MM LIGAMAX FDA Start: 11-22-2021 Appendectomy, laparoscopic RELOAD,STD 45 [id number] FDA Start: 11-22-2021 Appendectomy, laparoscopic NURSING SUPPORT WORKER,CLIP 5MM LIGAMAX FDA Start: 11-22-2021 Appendectomy, laparoscopic RELOAD,STD 45 [id number] FDA Start: 11-22-2021 Appendectomy, laparoscopic NURSING SUPPORT WORKER,CLIP 5MM LIGAMAX FDA Start: 11-22-2021 Appendectomy, laparoscopic RELOAD,STD 45 [id number] FDA Start: 11-22-2021 Appendectomy, laparoscopic NURSING SUPPORT WORKER,CLIP 5MM LIGAMAX FDA Start: 11-22-2021 Appendectomy, laparoscopic RELOAD,STD 45 [id number] FDA Start: 11-22-2021 STENT,URETERAL 6FR PIG 6X26 FDA Start: 01-14-2020 STENT,URETERAL 6FR PIG 6X26 FDA Start: 01-14-2020 STENT,URETERAL 6FR PIG 6X26 FDA Start: 01-14-2020 STENT,URETERAL 6FR PIG 6X26 FDA Start: 01-14-2020 STENT,URETERAL 6FR PIG 6X26 FDA Start: 01-14-2020 STENT,URETERAL 6FR PIG 6X26 FDA Start: 01-14-2020 STENT,URETERAL 6FR PIG 6X26 FDA Start: 01-14-2020 STENT,URETERAL 6FR PIG 6X26 FDA Start: 01-14-2020 STENT,URETERAL 6FR PIG 6X26 FDA Start: 01-14-2020 STENT,URETERAL 6FR PIG 6X26 FDA Start: 01-14-2020 STENT,URETERAL 6FR PIG 6X26 FDA Start: 01-14-2020 STENT,URETERAL 6FR PIG 6X26 FDA Start: 01-14-2020 STENT,URETERAL 6FR PIG 6X26 FDA Start: 01-14-2020 Goals Date Patient Goal Desired Activity /State Functional Status Date Assessment Result Facility 09-25-2024 Functional status Activity Abili ty With Assist of 1 [facility] Work Phone: 09-24-2024 Functional status Patient Activi ty Assist with Urinal [facility] Work Phone: 08-15-2023 Functional status Activity Ability Post O p [facility] Work Phone: 08-15-2023 Functional status Bedrest [facility] Work Phone: 11-23-2021 Functional status Ambulates [facility] Work Phone: Mental Status Date Assessment Result Facility 09-25-2024 Cognitive function Voice/Name [facility] Work Phone: 09-24-2024 Cognitive function Appropriate;Cooperativ e [facility] Work Phone: 09-24-2024 Cognitive function Level Of Cons ciousness Awake;Alert;Appropriate;Follow s Commands [facility] Work Phone: 08-16-2023 Cognitive function Level Of Cons ciousness Awake;Alert;Appropriate;Follow s Commands [facility] Work Phone: 08-15-2023 Cognitive function Voice/Name [facility] Work Phone: 04-28-2023 Cognitive function Level Of Cons ciousness Awake;Alert;Appropriate;Follow s Commands [facility] Work Phone: 01-15-2023 Cognitive function Level Of Cons ciousness Awake;Alert;Appropriate;Follow s Commands [facility] Work Phone: 11-23-2021 Cognitive function Level Of Cons ciousness Awake;Alert;Appropriate;Follow s Commands [facility] Work Phone: 11-23-2021 Cognitive function Touch/Shaking [facility] Work Phone: Clinical Notes 09-25-2000 to 05-19-2025 Note Date & Type Note Facility 05-19-2025 Progress note [facility] 09-25-2024 Note [facility] Medical Records Department [address] [place] [address] Discharge Summary 09/25/24 1209 MR#: [id number] Acct: [id number] Name: RUDDY RANDOLPH Rep #: [id number] : 1940 84 From: Suresh Aranda DO PCP: Dr. Tl Guzman MD Status:ADM COLE [facility] Prov[facility] Date of Admission: 09/24/24 Date of Discharge: 09/25/24 Primary Care Physician: Dr. Tl Guzman MD Consultations 09/24/24 17:15 Consult: Gastroenterology Routine Consulting Provider: [facility] Reason for Consult: Possible esophageal stricture EMERGENT Consult: No MD Notified: Yes Date Notified: 09/24/24 Time Notified: 17:15 Method of Notification: Verbal Reason For Visit: ASPIRATION, HYPOXIA Diagnosis Discharge Diagnosis (1) Aspiration into airway: Status: Acute Code(s): T17.908A - Unspecified foreign body in respiratory tract, part unspecified causing other injury, initial encounter Plan 1. Acute aspiration-patient will be placed in observation status on MedSurg 3, he will be placed on IV antibiotics and aerosol treatments, he will be seen by speech therapy. #2 hypoxia secondary to #1-pulse ox will be monitored, oxygen will be weaned if possible #3 confusion-etiology unclear-patient is alert and answers simple questions to this examiner today #4 past history of esophageal stenosis-patient may need to see gastroenterology and undergo an EGD during this admission. Total clinical time spent by myself addressing the patient's medical issues, reviewing all the data, and collaborating with patient's care team: 75 minutes Medications at Discharge Home Medications atorvastatin 40 mg tablet 40 mg PO QHS #90 tabs 05/31/19 acetaminophen 325 mg tablet (Tylenol) 650 mg (2 x 325 mg) PO Q4H PRN PRN Pain 1-10 Or Fever #0 tabs 11/23/21 nitroglycerin 0.4 mg sublingual tablet 0.4 mg sublingual Q5-15M 12/18/23 ramipril 5 mg capsule 5 mg PO QDAY 12/18/23 aspirin 81 mg tablet,delayed release (Adult Low Dose Aspirin) 81 mg PO DAILY 03/26/24 levothyroxine 100 mcg tablet 100 mcg PO MOTUWETHFRSA 03/26/24 pantoprazole 40 mg tablet,delayed release (Protonix) 40 mg PO DAILY #30 tabs 09/25/24 Hospital Course Operations None Procedures EGD Summary of Care Provided Minutes Spent on Discharge: 31 Hospital Course: This 84-year-old white male presented to the emergency room [facility] for evaluation of confusion and elevated temperature at home. He had been seen the night before in the emergency room at [facility] after he had choked on some food, however, his symptoms resolved and he was discharged home from the emergency room. On his second visit to the ER, he was noted to be hypoxic with an 86% pulse ox on room air, labs obtained in the emergency room showed a white blood cell count of 3.9 and chemistry profile showed a creatinine 1.54, chest x-ray showed no acute abnormality, and CT of the chest showed no evidence of pulmonary emboli, there were findings suggestive of scarring at the lung bases as well as in the right middle lobe-no focal infiltrate was seen. Patient was placed in observation status for aspiration, he was placed on IV antibiotics and aerosol treatments, within 2 hours the patient was weaned to room air, he was seen in consultation by gastroenterology and underwent an EGD that same day which showed evidence of a Schatzki's ring and hiatal hernia. There was also noted to be food in the distal esophagus. He was seen by speech therapy who recommended follow-up outpatient speech therapy and I signed a prescription regarding this. On 09/25/2024, patient was seen and examined: On examination he appeared in good health and spirits. Vital signs as documented. Skin warm and dry and without overt rashes. Neck without JVD, neck was supple, trachea midline, thyroid was normal. Lungs clear bilaterally, normal air movement was noted. Heart exam notable for regular rhythm, normal sounds and absence of murmurs, rubs or gallops. Abdomen unremarkable and without evidence of organomegaly, masses, or abdominal aortic enlargement. Bowel sounds are present, abdomen is not distended. Extremities nonedematous, no cyanosis was noted, no clubbing was noted. Neuro: Cranial nerves II through XII are grossly intact, no focal motor deficits were noted, sensation to light touch and pinprick intact, motor exam 5/5 throughout. Psych: Patient is alert and oriented x3, he does not appear anxious or depressed, he does not appear agitated. On 09/25/2024, patient was seen and examined and felt to be in stable condition for discharge home. This examiner did not feel he required outpatient antibiotics at the time of discharge. Weight / BMI Weight Weight: 68.2 kg Body Mass Index (BMI) 21.5 ABG / Lab / Microbiology Data 09/25 (more content not included)... [facility] 09-24-2024 Evaluation note Diagnosis Onset Date Resolution Altered mental state inactive Febr uary 2024 1:02pm Aspiration into airway inactive Fe bruary 2024 1:02pm Hypoxia inactive September 24, 2024 1:02pm [facility] Work Phone: 1(437) 343-317002-28-2025 Evaluation note* Diagnosis Onset Date Resolution Status Admit Date Altered mental state inactive Febr uary 2024 1:02pm Aspiration into airway inactive Fe bruary 2024 1:02pm Hypoxia inactive September 24, 2024 1:02pm Dysphagia acute October 25 7:52am [facility] Work Phone: 1(642) 146-412601-20-2024 Progress note Author Erasto Murphy [facility] August 16, 2023 8:50am Note Date/Time August 16, 2023 8 :51am [facility] Medical Records Department [address] [place] [address] Progress Note - Urology 08/16/23849 MR#: [id number] Acct: [id number] Name: RUDDY RANDOLPH Rep #:[id number] : 1940 83 From: Erasto Murphy MD PCP: Dr. Robson Guzman MD Status: ADM COLE Location: [facility] [id number] Subjective Subjective Status post incision and opening up of bladder neck, we can remove the catheter this morning patient can go home today after voids Objective Data Objective Data Vital Signs: Vital Signs Temp Pulse Resp BP Pulse Ox O2 Del Method O2 Flow Rate 97.7 F L 63 18 162/78 H 98 Room Air 6 08/16/23 05:46 08/16/23 05:46 08/16/23 05:46 08/16/23 05:46 08/16/23 05:46 08/16/23 05:46 08/15/23 10:55 Oxygen Flow Rate (L/min) 6 Oxygen Delivery Method Room Air Weight: 68.1 kg Body Mass Index (BMI) 21.5 Intake & Output: Intake and Output for Last 24 Hours 08/14/23 08/15/23 08/16/23 23:59 23:59 23:59 Intake Total 1829.25 / 1829.25 1033.33 / 1033.33 Output Total 1100 / 1100 Balance 729.25 / 729.25 1033.33 / 1033.33 Lab / Micro Data 08/05/23 08:11 08/05/23 08:11 08/16/23 0850 <Electronically signed by Erasto Murphy MD> Cosigner Signature (if applicable): CC: ~ Signed [facility] Work Phone: 1(391) 766-970701-19-2024 Discharge summary Author Erasto Murphy [facility] August 15, 2023 12:20pm Note Date/Time August 15, 2023 1 0:34am [facility] Medical Records Department [address] [place] [address] Instructions for Home/Discharge Instructions 08/15/23 1034 MR#: [id number] Acct: [id number] Name: RUDDY RANDOLPH Rep #:[id number] : 1940 83 From: Erasto Murphy MD PCP: Dr. Robson Guzman MD Status: [facility] [place] Discharge Instructions Diet Discharge Diet: No restrictions Activity Discharge Activity: Return to Normal Activity and May Not Drive (while taking narcotic pain medications.) Dressing / Incision Call your doctor if you observe: Fever of 101 or Higher Follow Up Care Please Follow Up With: Erasto Murphy MD When: Call [phone] for an appointment Test Results: Test results from this visit will be discussed in further detail at your follow- up appointment, if applicable. Discharge Plan Admission Attending Provider: Erasto Murphy Primary Care Provider: Robson Guzman Discharge Orders/Prescriptions Prescriptions: No Action oxybutynin chloride 10 mg tablet extended release 24hr 10 mg PO QHS Patient Comments: TAKE 1 TABLET BY MOUTHCONCE DAILY levothyroxine 50 MCG tablet 100 mcg PO MOTUWETHFRSA isosorbide mononitrate 30 MG tablet extended release 24 hr 30 mg PO DAILY aspirin 81 MG tablet 81 mg PO DAILY@0800 0RF Hold Instructions: Resume on 03/20/22. acetaminophen [Tylenol] 325 mg Tablet 650 mg PO Q4H PRN PRN (Reason: Pain 1-10 Or Fever) Qty: 0 0RF atorvastatin 40 mg tablet 40 mg PO QHS Qty: 90 3RF ramipril 10 mg capsule 10 mg PO DAILY Qty: 90 3RF Other Ambulatory Orders: 12 Lead EKG (Routine) Timeframe: [id number] Location: None Selected Ordered By: Dr. Jethro Ch Referrals / Follow Up: Robson Guzman MD [Primary Care Provider] - Disposition Disposition (needs filled in before D/C Order can be placed): Home, Self Care 08/15/23 1220<Electronically signed by Erasto Murphy MD>Erasto Murphy MD CC: Dr. Robson Guzman MD ~ Signed [facility] Work Phone: 1(781) 660-727601-19-2024 History and physical note Author Erasto Murphy [facility] August 15, 2023 9:49am Note Date/Time August 15, 2023 9 :49am [facility] Medical Records Department [address] [facility] [place] [address] History & Physical Exam 08/15/23 0949 MR#: [id number] Acct: [id number] Name: RUDDY RANDOLPH Rep #:[id number] : 1940 83 From: Erasto Murphy MD PCP: Dr. Robson Guzman MD Status: [facility] Location: [address] - General HPI Narrative RUDDY RANDOLPH, is a 83 M who presents for resection of a bladder neck contracture also a diagnostic cystoscopy to check a bladder. [facility] Medical History (Updated 08/04/23 @ 14:39 by Conrado De Los Santos) Alcohol use Atherosclerotic heart disease of [place] coronary artery without angina pectoris Bladder cancer Cancer Cardiology follow-up encounter Essential hypertension Former smoker High cholesterol History of echocardiogram History of heart attack History of stress test Hyperlipidemia Hypertension Hypothyroidism Pure hypercholesterolemia Thyroid disease Wears glasses Wears partial dentures Home Medications levothyroxine 50 mcg tablet 100 mcg PO MOTUWETHFRSA 02/24/16 [History Last Taken 08/15/23] isosorbide mononitrate 30 mg tablet,extended release 24 hr 30 mg PO DAILY 11/03/16 [History Last Taken 08/15/23] aspirin 81 mg tablet,delayed release 81 mg PO DAILY@0800 06/27/18 [Rx Last Taken 07/17/23] atorvastatin 40 mg tablet 40 mg PO QHS #90 tabs 05/31/19 [Rx Last Taken 08/14/23] acetaminophen 325 mg tablet (Tylenol) 650 mg (2 x 325 mg) PO Q4H PRN PRN Pain 1- 10 Or Fever #0 tabs 11/23/21 [Rx Last Taken Unknown] oxybutynin chloride 10 mg tablet,extended release 24 hr 10 mg PO QHS 01/16/23 [History Last Taken 08/14/23] ramipril 10 mg capsule 10 mg PO DAILY #90 caps 05/27/23 [Rx Last Taken 08/15/23] Allergy/AdvReac Type Severity Reaction Status Date / Time No Known Allergies Allergy Verified 08/15/23 08:07 Family History Father CAD (coronary artery disease) Myocardial infarction, Onset Age: 56 Grandmother Heart disease Uncle Heart disease Surgical History (Updated 08/04/23 @ 14:39 by Conrado De Los Santos) History of appendectomy History of cardiac catheterization History of cystoscopy Postsurgical percutaneous transluminal coronary angioplasty (PTCA) status (~09/07/01) Presence of aortocoronary bypass graft (~10/23/00) Presence of stent in coronary artery (~06/26/18) Social History Smoking Status: Former smoker how long ago did patient quit smokin years ago alcohol intake: current alcohol intake frequency: a few times a month Alcohol type: beer details: occasional caffeine: Yes Type: carbonated beverages Number of servings: 2 Vital Signs Vital Signs Vital Signs: 08/15/23 08:23 08/15/23 08:23 Temperature 97.5 F L Temperature Source Temporal Pulse Rate 61 Respiratory Rate 12 Respiratory Pattern Normal Blood Pressure 135/71 H Blood Pressure Mean 92 Blood Pressure Source Monitor Blood Pressure Position Semi-Fowlers Blood Pressure Location Left Arm Pulse Ox 99 Oxygen Delivery Method Room Air Weight Weight: 68.1 kg Body Mass Index (BMI) 21.5 Results Lab / Micro Data 08/05/23 08:11 08/05/23 08:11 08/15/23 0949 <Electronically signed by Erasto Murphy MD> Cosigner Signature (if applicable): CC: Dr. Robson Guzman MD; Dr. Erasto Murphy MD~ Signed [facility] Work Phone: 1(596) 181-804001-19-2024 [facility] Hospital Discharge instructionsAmbulatory Orders* 12 Lead EKG [[facility]] Time Frame: 08/05/23, Location: None Selected [facility] Work Phone: 1(930) 247-375703-01-2001 Evaluation note* Diagnosis Onset Date Resolution Status Atherosclerotic heart diseas e of [place] coronary artery without angina pectoris chronic Essential hypertension chron ic Presence of aortocoronary bypass graft September, chronic Presence of stent in coronary artery May, chronic Pure hypercholesterolemia ch ronic Essential hypertension chron ic Acute appendicitis resolved Acute appendicitis resolved [facility] Work Phone: 1(319) 830-783903-01-2001 Evaluation note* Diagnosis Onset Date Resolution Status Admit Date Essential hypertension chronic Oc tober 2024 8:51am Presence of aortocoronary by pass graft September, chronic May 19 8:51am Presence of stent in coronar y artery May, chronic May 19 8:51am Pure hypercholesterolemia chronic May 19, 2025 8:51am [facility] Work Phone: Evaluation noteNo assessment information available [facility] Work Phone: Progress note Author Allen Nelson [facility] Note Date/Time May 19, 2025 1 0:14am [facility] [place] [address] OFFICE VISIT Date of Service: 05/19/25 MR#: [id number] Acct: [id number] Name: RUDDY RANDOLPH Rep #: [id number] : 1940 Provider: Dr. Cheo Nelson MD Age/Sex: 85/M Location: [facility] Status: Signed HPI HPI History of Present Illness Details: This is a 85-year-old white male who presents today for outpatient cardiovascular follow-up regarding a history of underlying CAD, PCI in 06/26/2018, CABG (SLOAN to the LAD, SVG to the diagonal branch, SVG to the RCA [id number]), superimposed upon hyperlipidemia and hypertension. You remember he had astress test in September or 2023 which was abnormal and he underwent a cardiac catheterization which demonstrated a patent SLOAN to the LAD and the 2 saphenous vein grafts to the diagonal and the right coronary artery were noted to be occluded with collateralization from the circumflex artery to the right coronarydistribution. Medical therapy was recommended. He has done well since then. He says that his dizziness has abated. Today, he denies chest, arm, jaw, or neck discomfort. He denies palpitations or lower extremity edema. He denies claudication. He acknowledges shortness ofbreath with activity. He states taking more breaks with activty. He denies shortness of breath at rest, orthopnea, cough, or PND. He acknowledges lightheadedness. He denies dizziness, near-syncope, or syncope. He acknowledges fatigue. 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: No Accompanied by: Significant Other Is patient in pain?: No Allergies No Known Allergies Allergy (Verified 05/19/25 09:06) Medications ?Medication ?Instructions ?Recorded ?Confirmed ?Type atorvastatin 40 mg tablet 40 mg PO QHS #90 tabs 05/19/25 Rx acetaminophen 325 mg tablet 650 mg (2 x 325 mg) PO Q4H PRN PRN 11/23/21 05/19/25 Rx (Tylenol) Pain 1-10 Or Fever #0 tabs nitroglycerin 0.4 mg sublingual 0.4 mg sublingual Q5-1 5M 12/18/23 05/19/25 History tablet ramipril 5 mg capsule 5 mg PO QDAY 12/18/23 History aspirin 81 mg tablet,delayed 81 mg PO DAILY 03/26/24 1 History release (Adult Low Dose Aspirin) pantoprazole 40 mg tablet,delayed 40 mg PO DAILY #30 t abs 10/25/24 05/19/25 Rx release (Protonix) levothyroxine 100 mcg tablet 100 mcg PO QDAY 05/19/25 05/19/25 History Ejection fraction %: 60 Have you fallen in the past year?: No PFSH Medical History Altered mental state Hypoxia Aspiration into airway Wears glasses Wears partial dentures Alcohol use Thyroid disease High cholesterol Former smoker History of echocardiogram History of stress test Cardiology follow-up encounter History of heart attack Pure hypercholesterolemia Essential hypertension Bladder cancer Hyperlipidemia Hypertension Atherosclerotic heart disease of [place] coronary artery without angina pectoris Surgical History History of left heart catheterization (~12/2023) History of robot-assisted laparoscopic radical prostatectomy (~02/18/24) Hx of right cataract extraction Hx of left cataract extraction History of esophagogastroduodenoscopy (EGD) Hx of bladder repair surgery History of cardiac catheterization History of appendectomy History of cystoscopy Postsurgical percutaneous transluminal coronary angioplasty (PTCA) status (~09/07/01) Presence of stent in coronary artery (~06/26/18) Presence of aortocoronary bypass graft (~10/23/00) Family History Father CAD (coronary artery disease) Myocardial infarction, Onset Age: 56 Grandmother Heart disease Uncle Heart disease Social History Smoking Status: Former smoker how long ago did patient quit smokin years ago alcohol intake: current alcohol intake frequency: 0-2 drinks per day Alcohol type: beer substance use type: does not use caffeine: Yes Type: carbonated beverages Number of servings: 2 ROS Const Const: Negative for fatigue, weakness, daytime sleepiness or difficulty sleeping ENT ENT: Negative for dizziness or Nosebleed/epistaxis Cardio Chest Pain: No Palpitations: No Edema: None Resp Respiratory: Negative for SOB with activity, SOB at rest, SOB orthopnea\SOB lying down or Cough GI GI: Negative nausea, vomiting or heartburn Neuro Neuro: Negative for dizziness, lightheadedness, near syncope or weakness Endo Endo: Negative for fatigue Cardiology Exam Const Appearance: cooperative, healthy appearing, comfortable and no acute distress Nutritional Appearance: average body habitus and well nourished Orientation: alert, awake and oriented x3 Head Head: normal to inspection Ears: hearing grossly normal bilaterally Nose: external nose normal Face and Sinus: face symmetric Mouth: moist mucous membranes Eyes General: appearance normal, both eyes and all related structures Eyelids: eyelids normal EOM: EOM intact bilaterally Neck Neck: normal visual inspection and no JVD Carotids: normal carotid upstroke Chest Chest inspection: normal inspection of the chest, symmetric chest movement and normal respiratory effort; Negative cough Auscultation: Bilateral: Clear to Auscultation Cardio Rate: regular rate Rhythm: regular rhythm Heart sounds: S1 normal and S2 normal; Negative rub, gallop or murmur GI GI: normal to inspection Neuro General: patient alert, patient awake, patient oriented x3 and CN's II-XI intactbilaterally Skin Skin: no rashes or lesions noted Extremities Pulses: Normal: Right Posterior Tibial Pulse, Left Posterior Tibial Pulse, RightRadial Pulse and Left Radial Pulse Lower Extremity Edema: None: Bilateral Psych Psychological: normal affect Supplemental Info Supplemental Information Echocardiogram 04/14/2018 The study was technically difficult. Contrast injection was performed. Segmental dysfunction with preserved ejection fraction (see wall motion). The estimated ejection fraction is 60 %. Mild (1+) mitral valve insufficiency. Mild tricuspid valve insufficiency. Right ventricular systolic pressure estimated to be 25 mmHg. Transmitral diastolic flow velocities suggest diastolic dysfunction (pseudonormal pattern). Stress test on 10/14/2023: Conclusion: Mildly abnormal exercise myocardial perfusion stress test at a low workload Preserved ejection fraction. Mild anteroseptal ischemia cannot be completely excluded Heart catheterization from 01/12/2024: CONCLUSIONS Coronary bypass surgery with a SLOAN to the LAD which is patent and 2 saphenous vein grafts to the diagonal and right coronary artery previously noted to be occluded. Collateralization from the circumflex artery to the right coronary artery distribution is noted. CORONARY ANGIOGRAPHY DOMINANCE: Right Dominant LEFT HEART ASSESSMENT Left Ventricular Ejection Fraction: by LV Gram 65 % Normal LV wall motion Normal Left Ventricular systolic function LEFT MAIN: Angiographically normal LEFT ANTERIOR DESCENDING ARTERY: Medium size vessel which is totally occluded after the first septal supervisor blueprinting and photocopy and diagonal vessel. CIRCUMFLEX ARTERY: Medium size vessel with 2 obtuse marginal branches which are noted to be patent and AV groove branch and the obtuse marginal branch which collateralizes with the distal right coronary artery. RIGHT CORONARY ARTERY: is occluded GRAFTS: Saphenous Vein graft to the 1st Diagonal is totally occluded Saphenous Vein graft to the RCA is totally occluded SLOAN graft to the Mid LAD is patent COLLATERAL FLOW: Collateral flow from Left to Right Cardiac Intervention 06/26/18 CONCLUSIONS Succesful CHANDAN Mid D1 using Resolute Integrity 2.25x18 mm Chest CTA 09/24/24 FINDINGS: Heart: Prior midline sternotomy. Coronary artery calcification. RV/LV Diameter Ratio: N/A Thoracic Aorta: No thoracic aortic aneurysm or dissection Pulmonary Vessels: No evidence of acute pulmonary emboli through the major subsegmental branches. Most Proximal Level of Embolus (if embolus present): No evidence of pulmonary emboli. Labs: HDL Cholesterol, (40-) 45 mg/dL Cholesterol, (<=200) 102 mg/dL Triglycerides, (-199) 64 mg/dL Diagnostics: Electrocardiogram Echocardiogram Stress Test Stress Test Nuclear Medicine Cardiac Catheterization Cardiac Intervention Chest X-Ray Chest CTA Abdomen/Pelvis CT Past Visits: Cardiology Visit Today Assessment and Plan Assessment and Plan (1) Presence of aortocoronary bypass graft: Status: Chronic Comment: SLOAN to LAD, SVG to first diagonal, and SVG to RCA in 10/23/00; Plan: Heart catheterization in May 2018 showed patent SLOAN to LAD, occluded SVG to diagonal, and occluded SVG to RCA. Repeat cardiac catheterization in December demonstrated identical imaging. He was noted to have right to right collateral flow and [id number] collateral flow. Overall, he states feeling well. He is active without symptoms. We will continue to monitor. (2) Presence of stent in coronary artery: Status: Chronic Comment: PTCA/Stent x3 of the prox,mid,distal RCA 09/07/01 @ [place]; PCI/CHANDAN to the mid D1 06/26/18 Plan: He will continue current medications include aspirin, atorvastatin, and ramipril. (3) Essential hypertension: Status: Chronic Comment: CONTROLLED ON MEDS Plan: His blood pressure is much better controlled at this time. (4) Pure hypercholesterolemia: Status: Chronic Plan: He will continue current statin medication, atorvastatin 40 mg p.o. nightly. This is monitored by PCP and expects this to be repeated with PCP. He was reminded of LDL goal below 70 for secondary prevention. His most recent lipid profile demonstrates a total cholesterol 102, HDL of 45 and LDL of 44. Plan Details Additional Comments: Thank you for allowing us to participate in the patients plan of care, if you have any questions please do not hesitate to call. This note was generated using a voice recognition system and there may be incorrect words, spelling or punctuation that were not noted when reviewing the office note prior to saving. Follow Up: 1 Year (jhr) Coding Level of Care Code Off vis,est,level 4 Diagnoses Presence of aortocoronary bypass graft Z95.1 Presence of stent in coronary artery Z95.5 Essential hypertension I10 Pure hypercholesterolemia E78.00 Coding Level of Care Code Off vis,est,level 4 Diagnoses Presence of aortocoronary bypass graft Z95.1 Presence of stent in coronary artery Z95.5 Essential hypertension I10 Pure hypercholesterolemia E78.00 Clinical Quality Measures Falls Risk Screening/Assistive Devices Have you fallen in the past year?: No Cardiac Ejection fraction %: 60 05/19/25 0917 <Electronically signed by Allen Bagley> Date _ Allen Nelson MD Cosigner Signature: Date (if applicable) CC: Dr. Tl Guzman MD ~ [facility] Work Phone: Reason for referral (narrative)No reason for referral information available[facility] Work Phone: Summary Purpose Family History Relationship Condition Age at Onset Recorded Date/T juanpablo father Coronary artery disease Unknown Myocardial infarction 56 grandmother Cardiac disease Unknown uncle Cardiac disease Unknown Advance Directives Advance Directive Response Recorded Date/ Time Advance Directives Yes May 8:49am Living Will Yes November 22, 2021 1:36am Power of Store Promoter Yes November 22 1:36am Advance Directive Response Recorded Date/ Time Advance Directives Yes May 8:49am Living Will Yes March 06 12:33pm Power of Store Promoter Yes March 06 12:33pm Advance Directive Response Recorded Date/ Time Name of Medical Power of Store Promoter SPOUSE January 15, 2023 2:03pm Advance Directives Yes May 8:49am Living Will Yes January 15, 2023 2:03pm Power of Store Promoter Yes January 15 2:03pm Advance Directive Response Recorded Date/ Time Advance Directives Yes May 7:49am Living Will No April 28 2:14pm Power of Store Promoter No April 28 2:14pm Advance Directive Response Recorded Date/ Time Name of Medical Power of Store Promoter Cara hernández August 15, 2023 2:42pm Advance Directives Yes May 7:49am Living Will Yes August 15 2:42pm Power of Store Promoter Yes August 15, 2023 2:42pm Advance Directive Response Recorded Date/ Time Name of Medical Power of Store Promoter Cara hernández August 15, 2023 3:42pm Advance Directives Yes May 8:49am Living Will Yes August 15 3:42pm Power of Store Promoter Yes August 15, 2023 3:42pm Advance Directive Response Recorded Date/ Time Living Will Yes September 24, 2 025 2:17am Do you have a Healthcare Pow er of Store Promoter? Yes September 24, 2024 2:17am Name of Medical Power of Store Promoter September 24, 2024 2:17am Living Will Yes September 24 025 3:43pm Do you have a Healthcare Pow er of Store Promoter? Yes September 24, 2024 3:43pm Name of Medical Power of Store Promoter Cara hernández September 24, 2024 3:43pm Advance Directives No January 11 7:07am Advance Directive Response Recorded Date/ Time Living Will Yes February 20, 2024 12:59am Do you have a Healthcare Power of Store Promoter? Yes February 20, 2024 12:59am Advance Directives No January 11 6:07am Chief Complaint and Reason for Visit Chief Complaint 6 m fu ACUTE APPENDICITIS ACUTE APPENDICITIS ACUTE APPENDICITIS APPENDIX REMOVAL 11/22 Reason for Visit Atherosclerotic hear t disease of [place] coronary artery without angina pectoris Essential hypertension Presence of aortocoronary bypass graft Presence of stent in coronary artery Pure hypercholesterolemia Essential hypertension Acute appendicitis Acute appendicitis Chief Complaint foreign object Chief Complaint SYNCOPE Chief Complaint SYNCOPE PREOP Cysto, Transurethral Resection of B Chief Complaint PREOP Cysto, Transurethral Resection of B EORDER Chief Complaint PREOP Cysto, Transurethral Resection of B EORDER DIZZY SPELLS Chief Complaint PREOP Cysto, Transurethral Resection of B EORDER DIZZY SPELLS DIZZY SPELLS CAMACHO CAMACHO Chief Complaint Admit Date FOREIGN BODY September 23, 2024 11:51pm ASPIRATION, HYPOXIA September 24, 2024 1:02pm ASPIRATION, HYPOXIA September 24, 2024 4:43pm ASPIRATION, HYPOXIA September 24, 2024 6:33pm ASPIRATION, HYPOXIA September 25, 2024 12:0 9pm Reason for Visit Admit Date Altered mental state September 24, 2024 1:02pm Aspiration into airway September 24 1:02pm Hypoxia September 24, 2024 1:02pm Chief Complaint Admit Date FOREIGN BODY September 23, 2024 11:51pm ASPIRATION, HYPOXIA September 24, 2024 1:02pm ASPIRATION, HYPOXIA September 24, 2024 4:43pm ASPIRATION, HYPOXIA September 24, 2024 6:33pm ASPIRATION, HYPOXIA September 25, 2024 12:0 9pm Hospital October 25, 2024 7:5 2am Reason for Visit Admit Date Altered mental state September 24, 2024 1:02pm Aspiration into airway September 24 1:02pm Hypoxia September 24, 2024 1:02pm Dysphagia October 25, 2024 7:5 2am Chief Complaint Admit Date 1 Y FU May 19, 2025 8 :51am Reason for Visit Admit Date Essential hypertension May 19 8:51am Presence of aortocoronary bypass graft O ctober 2024 8:51am Presence of stent in coronary artery Oct krystyna 2024 8:51am Pure hypercholesterolemia May 19, 2025 8:51am Additional Source Comments (unrecognized sect ion and content) No Status Records FoundNo Status Records Found INFORMATION SOURCE (unrecogn ized section and content) DATE CREATED AUTHOR 08/30/2018 [facility] DATE CREATED AUTHOR 'S LAITH ATJAMESON 05/20/2025 [facility] Goals (unrecognized section and content) Goals may be documented in a n alternate sectionGoals may be documented in an alternate sectionGoals may be documented in an alternate sectionGoals may be documented in an alternate sectionGoals may be documented in an alternate sectionGoals may be documented in an alternate section Care Teams (unrecognized sec tion and content) Team Status: Active Member Role Status Dates Dr. Robson Guzman MD Family Provider Active Dr. Robson Guzman MD Primary Care Provider Activ e Team Status: Inactive Member Role Status Dates Dr. Robson Guzman MD Primary Care Provider Activ e Dr. Erasto Murphy MD Attending Provider, Referr ing Provider Active Team Status: Inactive Member Role Status Dates Dr. Robson Guzman MD Primary Care Provider, Atte nding Provider Active Team Status: Active Member Role Status Dates Dr. Robson Guzman MD Primary Care Provider, Refe rring Provider Active Dr. Aye Amaro MD Emergency Provider Active Dr. Tomas Khan DO Attending Provider Active Team Status: Inactive Member Role Status Dates Dr. Robson Guzman MD Primary Care Provider Activ e Dr. Jose Antonio Martinez DO Attending Provider, Emergency P arely Active Team Status: Active Member Role Status Dates Dr. Robson Guzman MD Primary Care Provider Activ e Dr. Allen Nelson MD Attending Provider Active Dr. Erasto Murphy MD Referring Provider Active Team Status: Inactive Member Role Status Dates Dr. Robson Guzman MD Primary Care Provider Activ e Dr. Erasto Murphy MD Admit Provid er, Attending Provider, Referring Provider Active Team Status: Inactive Member Role Status Dates Dr. Robson Guzman MD Primary Care Provider, Attending Provider, Referring Provider Active Team Status: Active Member Role Status Dates Dr. Robson Guzman MD Primary Care Provider, Refe rring Provider Active Dr. Nilesh Wiggins MD Attending Provider Activ e Team Status: Active Member Role Status Dates Dr. Robson Guzman MD Primary Care Provider, Referring Provider, Other Provider Active Dr. Allen Nelson MD Attending Provider Active Team Status: Active Member Role Status Dates Dr. Tl Guzman MD Primary Care Provider Acti ve Team Status: Inactive Member Role Status Dates Dr. Tl Guzman MD Primary Care Provider Acti ve Start: September 23, 2024 End: September 24, 2024 Dr. Austin Rivera DO Attending Provider Active Start: September 23, 2024 End: September 24, 2024 Dr. Austin Rivera , DO Emergency Provider Active Start: September 23, 2024 End: September 24, 2024 Team Status: Inactive Member Role Status Dates Dr. Tl Guzman MD Primary Care Provider Acti ve Start: September 24, 2024 End: September 25, 2024 Dr. Tate Meneses , DO Emergency Provider Active Start: September 24, 2024 End: September 25, 2024 Dr. Suresh Aranda , DO Admit Provider Active S tart: September 24, 2024 End: September 25, 2024 Dr. Suresh Aranda , DO Attending Provider Active Start: September 24, 2024 End: September 25, 2024 Team Status: Active Member Role Status Dates Dr. Tl Guzman MD Primary Care Provider Acti ve Start: September 24, 2024 Dr. Tate Meneses , Emergency Provider Active Start: September 24, 2024 Dr. Suresh Aranda , DO Admit Provider Active S tart: September 24, 2024 Dr. Suresh Aranda , Attending Provider Active Start: September 24, 2024 Dr. Suresh Aranda , DO Other Provider Active S tart: September 24, 2024 Team Status: Active Member Role Status Dates Dr. Tl Guzman MD Primary Care Provider Acti ve Start: September 24, 2024 Dr. Tate Meneses DO Emergency Provider Active Start: September 24, 2024 Dr. Suresh Aranda , DO Admit Provider Active S tart: September 24, 2024 Dr. Suresh Aranda , Referring Provider Active Start: September 24, 2024 Dr. Suresh Aranda , DO Other Provider Active S tart: September 24, 2024 Dr. Tomas Khan , DO Attending Provider Active Start: September 24, 2024 Team Status: Active Member Role Status Dates Dr. Tl Guzman MD Primary Care Provider Acti ve Start: September 25, 2024 Dr. Tate Meneses DO Emergency Provider Active Start: September 25, 2024 Dr. Suresh Aranda , DO Admit Provider Active S tart: September 25, 2024 Dr. Suresh Aranda , Attending Provider Active Start: September 25, 2024 Dr. Suresh Aranda DO Other Provider Active S tart: September 25, 2024 Team Status: Inactive Member Role Status Dates Dr. Tl Guzman MD Primary Care Provider Acti ve Start: October 05, 2024 End: October 05, 2024 Dr. Tl Guzman MD Attending Provider Active Start: October 05, 2024 End: October 05, 2024 Dr. Tl Guzman MD Referring Provider Active Start: October 05, 2024 End: October 05, 2024 Team Status: Inactive Member Role Status Dates Dr. Tl Guzman MD Primary Care Provider Acti ve Start: October 25, 2024 End: October 25, 2024 Dr. Tl Guzman MD Referring Provider Active Start: October 25, 2024 End: October 25, 2024 Dr. Tomas Khan DO Attending Provider Active Start: October 25, 2024 End: October 25, 2024 Team Status: Inactive Member Role Status Dates Dr. Tl Guzman MD Primary Care Provider Acti ve Start: October 26, 2024 End: October 26, 2024 [place] Attending Provider Active Start : October 26, 2024 End: October 26, 2024 [place] Referring Provider Active Start : October 26, 2024 End: October 26, 2024 Team Status: Inactive Member Role Status Dates Dr. Tl Guzman MD Primary Care Provider Acti ve Start: November 03, 2024 End: November 03, 2024 Dr. Tl Guzman MD Attending Provider Active Start: November 03, 2024 End: November 03, 2024 Dr. Tl Guzman MD Referring Provider Active Start: November 03, 2024 End: November 03, 2024 Team Status: Active Member Role/Relationship Status Dates Dr. Tl Guzman MD Primary care physician Act vanessa Team Status: Inactive Member Role/Relationship Status Dates Dr. Tl Guzman MD Primary care physician Act vanessa Start: May 19, 2025 End: May 19, 2025 Dr. Tl Guzman MD Referring Provider Active Start: May 19, 2025 End: May 19, 2025 Dr. Allen Nelson MD Attending physician Active Start: May 19, 2025 End: May 19, 2025 FOR RECORDS PERTAINING TO PATIENTS WHO ARE [...] BE BASED ON THE PRIMARY CLINICAL RECORDS. [facility]. provides no warranty or guarantee of the accuracy or completeness of information in this document.
[2025-06-22 10:41] LABS: PTHIN 197 pg/mL (11-61)
[2025-06-22 11:00] LABS: Anion Gap 10 (5-15); BUN 36 mg/dL (4-19); BUN/Creat Ratio 12.1 RATIO (10-20); Calcium,Total 8.7 mg/dL (7.6-11.0); Carbon Dioxide 21.0 mmol/L (21.0-32.0); Chloride 108 mmol/L (98-108); Glucose 114 mg/dL (70-99); Potassium 4.9 mmol/L (3.3-5.1); Vitamin D,25 Hydroxy 23.2 ng/mL (30-100)
[2025-06-22 22:20] LABS: Hematocrit 33.0 % (40-54); Hemoglobin 11.2 g/dL (13.0-16.5); Mean Corp Hgb Conc 33.9 g/dL (32-36); Mean Corpuscular Volume 92.2 fL (80-94); Mean Platelet Vol. 9.0 fl (6.2-12.0); Platelet Count 199 K/mm3 (150-450); RBC Distribution Width CV 13.1 % (11.6-14.6); RBC Distribution Width SD 44.0 fl (35.1-43.9); Red Blood Count 3.58 M/mm3 (4.6-6.2); White Blood Count 6.3 K/mm3 (4.4-11.0)
== END | disposition home or self-care (01) ==
LOC: MFPLAB 09:17
PROVIDERS: PCP Family Medicine; Visit Provider Family Medicine
DX: N18.30 Chronic kidney disease, stage 3 unspecified (principal); E03.9 Hypothyroidism, unspecified
CPT/HCPCS: 36415; 80048; 82306; 83970; 84439; 84443; 85027

== ENCOUNTER → 2025-06-27 | Outpatient (CLI) | payer MEDICARE, SELFPAY ==
--- OUTSIDE RECORDS SUMMARY | 2025-06-27 08:32 | XMS RPT_ITS | CCD ---
Author Organization [facility] Care Team Providers Care Greenhouse Transplanter Name Role Phone FABIOLA HARRIS Attending Dr. Robson Poole Primary Care Provider [phone] Dr. Robson Guzman Referring Provider Bailey FINANCIAL SALES PROFESSIONAL, FINANCIAL SALES PROFESSIONAL-Kenzie Gill Attending Provider Dr. Austin Rivera Emergency [...] Provider Thomas TRIVEDI, Dr. Boothe Referring Provider Woodlawn, Keiry Attending Provider [phone] Woodlawn, Keiry Referring Provider [phone] Allen Nelson Attending Unavailable Ranney, Tl Referring [...] Referring Unavailable Ranney, Christopher Primary Care Unavailable Woodlawn, Keiry Attending Unavailable Woodlawn, Keiry Referring Unavailable Ranney, Christopher Primary Care [...] Coronary atherosclerosis; Translations: [Atherosclerotic heart disease of [place] coronary artery without angina pectoris] Onset: 10-15-2024 [...] x3 of the prox,mid,distal RCA 09/07/01 @ [place]; PCI/CHANDAN to the mid D1 06/26/18 [facility]AN [...] Facility Cardiology Visit Reporton Cardiology Visit Report [facility] [address] [place] [address] OFFICE VISIT Date of Service: 05/19/25 MR#: [id number] Acct: [id number] Name: RUDDY RANDOLPH Rep #: [id number] : 1940 Provider: Dr. 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 Normal [facility] Anion gap in Serum or Plasma Ordered By: Tl Guzman on 11-03-2024 Anion gap [Moles/Vol] 11 mmol/L 12-09 [facility] BUN/creatinine ratioOrdered By: Tl Guzman on 11-03-2024 Urea nitrogen/Creatinine [Mass ratio] 12.9 mg/mg 05-16 [facility] Basic Metabolic Profile (BMP )on 11-03-2024 BUN/CRE 12.9 RATIO Normal 10-20 [facility] Comment on above: Order Comment: Order Date: 10/06/24Order Info: 666-07 - BMPOrder Info: 3015-3 - TSH Performed By: #### L 501.9520, L500.2500 ####[facility] [address] [place], [address] Calcium [Mass/Vol] 9.1 mg/dL Normal 7.6-11.0 [facility] Comment on above: Order Comment: Order Date: 10/06/24Order Info: 666-07 - BMPOrder Info: 3015-09 - TSH Performed By: #### L 501.9520, L500.2500 ####[facility] [address] [place], [address] Chloride [Moles/Vol] 107 mmol/L Normal 98-108 [facility] Comment on above: Order Comment: Order Date: 10/06/24Order Info: 666-07 - BMPOrder Info: 3015-09 - TSH Performed By: #### L 501.9520, L500.2500 ####[facility] [address] [place], [address] CO2 [Moles/Vol] 21.9 mmol/L Normal 21.0-32.0 [facility] Comment on above: Order Comment: Order Date: 10/06/24Order Info: 666-07 - BMPOrder Info: 3015-09 - TSH Performed By: #### L 501.9520, L500.2500 ####[facility] [address] [place], [address] Creatinine [Mass/Vol] 1.54 mg/dL High 0.70-1.20 [facility] Comment on above: Order Comment: Order Date: 10/06/24Order Info: 666-07 - BMPOrder Info: 3015-09 - TSH Performed By: #### L 501.9520, L500.2500 ####[facility] [address] [place], [address] GAP 11 Normal 5-15 [facility] Comment on above: Order Comment: Order Date: 10/06/24Order Info: 06- - BMPOrder Info: 3 - TSH Performed By: #### L 501.9520, L500.2500 ####[facility] [address] [place], [address] GFR/1.73 sq M.predicted among non-blacks MDRD (S/P/Bld) [Vol rate/Area] 44 mL/min/{1.73_m2} Low >60 [facility] Comment on above: Order Comment: Order Date: 10/06/24Order Info: 666-07 - BMPOrder Info: 3015-09 - TSH Result Comment: mL/m in/1.73m2 CKD-EPI Creatinine Equation (2020) Performed By: #### L 501.9520, L500.2500 ####[facility] [address] [place], [address] Glucose [Mass/Vol] 77 mg/dL Normal 70-99 [facility] Comment on above: Order Comment: Order Date: 10/06/24Order Info: 666- - BMPOrder Info: 3015-09 - TSH Performed By: #### L 501.9520, L500.2500 ####[facility] [address] [place], [address] Potassium [Moles/Vol] 4.1 mmol/L Normal 3.3-5.1 [facility] Comment on above: Order Comment: Order Date: 10/06/24Order Info: 666-07 - BMPOrder Info: 3 - TSH Performed By: #### L 501.9520, L500.2500 ####[facility] [address] [place], [address] Sodium [Moles/Vol] 140 mmol/L Normal 133-145 [facility] Comment on above: Order Comment: Order Date: 10/06/24Order Info: 0667-1 - BMPOrder Info: 3016-3 - TSH Performed By: #### L 501.9520, L500.2500 ####[facility] [address] [place], [address] Urea nitrogen [Mass/Vol] 20 mg/dL High 4-19 [facility] Comment on above: Order Comment: Order Date: 10/06/24Order Info: 0667-1 - BMPOrder Info: 3016-3 - TSH Performed By: #### L 501.9520, L500.2500 ####[facility] [address] [place], [address] Carbon dioxide, total [Moles /volume] in Central venous bloodOrdered By: Tl Guzman on 11-03-2024 CO2 [Moles/Vol] 21.9 mmol/L 21.0-32.0 [facility] Chloride assayOrdered By: Emeka Guzman on 11-03-2024 Chloride [Moles/Vol] 107 mmol/L 98-108 [facility] GFR/1.73 sq M.predicted juan pablo g non-blacks MDRD (S/P/Bld) [Vol rate/Area]Ordered By: Tl Guzman on 11-03-2024 Estimated GFR (MDRD) Non-Af Amer 44 Low >60 [facility] Comment on above: mL/min/1.73m2 CKD-EP I Creatinine Equation (2020) Potassium (Unsp spec) [Mass/ Vol]Ordered By: Tl Guzman on 11-03-2024 Potassium [Moles/Vol] 4.1 mmol/L 3.3-5.1 [facility] Serum creatinine measurement (mass/volume)Ordered By: Tl Guzman on 11-03-2024 Creatinine [Mass/Vol] 1.54 mg/dL High 0.70-1.20 [facility] Serum glucose measurement (m ass/volume)Ordered By: Tl Guzman on 11-03-2024 Glucose [Mass/Vol] 77 mg/dL 70-99 [facility] Serum or plasma calcium rosana urement (mass/volume)Ordered By: Tl Guzman on 11-03-2024 Calcium [Mass/Vol] 9.1 mg/dL 7.6-11.0 [facility] Serum or plasma urea nitroge n measurement (mass/volume)Ordered By: Tl Guzman on 11-03-2024 Urea nitrogen [Mass/Vol] 20 mg/dL High 4-19 [facility] Sodium levelOrdered By: Cash abner Thomas on 11-03-2024 Sodium [Moles/Vol] 140 mmol/L 133-145 [facility] TSH DL <= 0.005 mIU/L QnOrde red By: Tl Guzman on 11-03-2024 Thyroid Stimulating Hormone (TSH) 5.970 uIU/mL High 0.300-4.20 0 [facility] Thyroid Stim Hormone (TSH)on 11-03-2024 TSH 5.970 uIU/mL High 0.300-4.20 0 [facility] Comment on above: Order Comment: Order Date: 10/06/24Order Info: [id number] - BMPOrder Info: [id number] - TSH Performed By: #### L 501.9520, L500.2500 ####[facility] [address] [place], [place], [address] Diagnostic total prostate sp ecific antigen (PSA) measurementOrdered By: Keiry Soto on 10-26-2024 Prostate Specific Antigen Total 0.19 ng/mL 0.00-4.00 [facility] Comment on above: This test was [...] Diagnosticon PSA, DIAGNOSTIC 0.19 ng/mL Normal 0.00-4.00 [facility] Comment on above: Result Comment: This [...] values. Performed By: #### P SUIV #### [facility] [address] [place], [address] Gastroenterology Visit Repor ton 10-25-2024 Gastroenterology Visit Report [facility] [address] [place] [address] OFFICE VISIT Date of Service: 10/25/24 MR#: [id number] Acct: [id number] Name: RUDDY RANDOLPH Rep #: [id number] : 1940 Provider: Tomas Khan DO Age/Sex: 84/M Location: [facility] Status: Signed Intake Vital Signs 09/24/24 [...] you fallen in the past year?: [facility] Wears glasses Wears partial dentures Alcohol use Thyroid disease High cholesterol Former smoker History of echocardiogram History of stress test Cardiology follow-up encounter History of heart attack Pure hypercholesterolemia Essential hypertension Bladder cancer Hyperlipidemia Hypertension Atherosclerotic heart disease of [place] coronary artery without angina pectoris Surgical History [...] the office today for hospital follow up. [facility] 2. - 3..25 food stuck in esophagus [...] Auscultation Cardio (more content not included)... Normal [facility] Anion gap in Serum or Plasma Ordered By: Tl Guzman on 10-05-2024 Anion gap [Moles/Vol] 12 mmol/L 5-15 [facility] BUN/creatinine ratioOrdered By: Tl Guzman on 10-05-2024 Urea nitrogen/Creatinine [Mass ratio] 10.2 mg/mg 10-20 [facility] Bilirubin, totalOrdered By: Tl Guzman on 10-05-2024 Bilirubin [Mass/Vol] 1.09 mg/dL 0.00-1.30 [facility] CBC-Complete Blood Cnt No Di ffon 10-05-2024 Erythrocyte distribution width (RBC) [Ratio] 13.8 % Normal 11.6-14.6 [facility] Comment on above: Order Comment: Order Date: 06/14/24Order Info: [id number] - CBC Performed By: #### L 501.9887, L100.0500, L500.4100, L500.4050 ####[facility] [address] [place], [place], [address] Hematocrit (Bld) [Volume fraction] 34.7 % Low 40-54 [facility] Comment on above: Order Comment: Order Date: 06/14/24Order Info: [id number] - CBC Performed By: #### L 501.9520, L100.0500, L500.4100, L500.4050 ####[facility] [address] [place], [address] Hemoglobin (Bld) [Mass/Vol] 11.9 g/dL Low 13.0-16.5 [facility] Comment on above: Order Comment: Order Date: 06/14/24Order Info: [id number] - CBC Performed By: #### L 501.9520, L100.0500, L500.4100, L500.4050 ####[facility] [address] [place], [address] MCH (RBC) [Entitic mass] 31.5 pg Normal 27.0-32.0 [facility] Comment on above: Order Comment: Order Date: 06/14/24Order Info: [id number] - CBC Performed By: #### L 501.9520, L100.0500, L500.4100, L500.4050 ####[facility] [address] [place], [address] MCHC (RBC) [Mass/Vol] 34.3 g/dL Normal 32-36 [facility] Comment on above: Order Comment: Order Date: 06/14/24Order Info: [id number] - CBC Performed By: #### L 501.9520, L100.0500, L500.4100, L500.4050 ####[facility] [address] [place], [address] MCV (RBC) [Entitic vol] 91.8 fL Normal 80-94 [facility] Comment on above: Order Comment: Order Date: 06/14/24Order Info: [id number] - CBC Performed By: #### L 501.9520, L100.0500, L500.4100, L500.4050 ####[facility] [address] [place], [address] Platelet mean volume (Bld) [Entitic vol] 8.3 fL Normal 6.2-12.0 [facility] Comment on above: Order Comment: Order Date: 06/14/24Order Info: [id number] - CBC Performed By: #### L 501.9520, L100.0500, L500.4100, L500.4050 ####[facility] [address] [place], [address] Platelets (Bld) [#/Vol] 263 10*3/uL Normal 150-450 [facility] Comment on above: Order Comment: Order Date: 06/14/24Order Info: [id number] - CBC Performed By: #### L 501.9520, L100.0500, L500.4100, L500.4050 ####[facility] [address] [place], [address] RBC (Bld) [#/Vol] 3.78 10*6/uL Low 4.6-6.2 [facility] Comment on above: Order Comment: Order Date: 06/14/24Order Info: [id number] - CBC Performed By: #### L 501.9520, L100.0500, L500.4100, L500.4050 ####[facility] [address] [place], [address] RDW SD 46.4 fl High 35.1-43.9 [facility] Comment on above: Order Comment: Order Date: 06/14/24Order Info: [id number] - CBC Performed By: #### L 501.9520, L100.0500, L500.4100, L500.4050 ####[facility] [address] [place], [address] WBC (Bld) [#/Vol] 6.7 10*3/uL Normal 4.4-11.0 [facility] Comment on above: Order Comment: Order Date: 06/14/24Order Info: [id number] - CBC Performed By: #### L 501.9520, L100.0500, L500.4100, L500.4050 ####[facility] [address] [place], [place], [address] Calculated very low density lipoprotein (VLDL) cholesterol measurementOrdered By: Tl Guzman on 10-05-2024 VLDL Cholesterol 13 mg/dL 5-40 [facility] Carbon dioxide, total [Moles /volume] in Central venous bloodOrdered By: Tl Guzman on 10-05-2024 CO2 [Moles/Vol] 19.8 mmol/L Low 21.0-32.0 [facility] Chloride assayOrdered By: Emeka Guzman on 10-05-2024 Chloride [Moles/Vol] 109 mmol/L High 98-108 [facility] Comprehensive Metabolic Prof ilon 10-05-2024 Albumin [Mass/Vol] 3.9 g/dL Normal 3.4-4.8 [facility] Comment on above: Order Comment: Order Date: 10/05/24Order Info: [id number] - BMPOrder Date: 06/14/24Order Info: [id number] - CMPOrder Info: [id number] - LIPIDOrder Info: [id number] - TSH Performed By: #### L 501.9520, L100.0500, L500.4100, L500.4050 ####[facility] [address] [place], [place], [address] Albumin/Globulin [Mass ratio] 1.5 {ratio} Normal 0.9-2.4 [facility] Comment on above: Order Comment: Order Date: 10/05/24Order Info: [id number] - BMPOrder Date: 06/14/24Order Info: [id number] - CMPOrder Info: [id number] - LIPIDOrder Info: [id number] - TSH Performed By: #### L 501.9520, L100.0500, L500.4100, L500.4050 ####[facility] [address] [place], [address] ALK PHOS 76 U/L Normal 40-129 [facility] Comment on above: Order Comment: Order Date: 10/05/24Order Info: 666- - BMPOrder Date: 06/14/24Order Info: 785-1 - CMPOrder Info: [id number] - LIPIDOrder Info: [id number] - TSH Performed By: #### L 501.9520, L100.0500, L500.4100, L500.4050 ####[facility] [address] [place], [address] ALT [Catalytic activity/Vol] 17 U/L Normal <=46 [facility] Comment on above: Order Comment: Order Date: 10/05/24Order Info: 666-07 - BMPOrder Date: 06/14/24Order Info: 785- - CMPOrder Info: [id number] - LIPIDOrder Info: [id number] - TSH Performed By: #### L 501.9520, L100.0500, L500.4100, L500.4050 ####[facility] [address] [place], [address] AST [Catalytic activity/Vol] 27 U/L Normal <=37 [facility] Comment on above: Order Comment: Order Date: 10/05/24Order Info: 666-07 - BMPOrder Date: 06/14/24Order Info: 785- - CMPOrder Info: [id number] - LIPIDOrder Info: [id number] - TSH Performed By: #### L 501.9520, L100.0500, L500.4100, L500.4050 ####[facility] [address] [place], [address] Bilirubin [Mass/Vol] 1.09 mg/dL Normal 0.00-1.30 [facility] Comment on above: Order Comment: Order Date: 10/05/24Order Info: 666- - BMPOrder Date: 06/14/24Order Info: 785-1 - CMPOrder Info: - LIPIDOrder Info: 3 - TSH Performed By: #### L 501.9520, L100.0500, L500.4100, L500.4050 ####[facility] [address] [place], [address] BUN/CRE 10.2 RATIO Normal 10-20 [facility] Comment on above: Order Comment: Order Date: 10/05/24Order Info: 666-07 - BMPOrder Date: 06/14/24Order Info: 785- - CMPOrder Info: - LIPIDOrder Info: [id number] - TSH Performed By: #### L 501.9520, L100.0500, L500.4100, L500.4050 ####[facility] [address] [place], [address] Calcium [Mass/Vol] 8.7 mg/dL Normal 7.6-11.0 [facility] Comment on above: Order Comment: Order Date: 10/05/24Order Info: 666-07 - BMPOrder Date: 06/14/24Order Info: 785-07 - CMPOrder Info: - LIPIDOrder Info: [id number] - TSH Performed By: #### L 501.9520, L100.0500, L500.4100, L500.4050 ####[facility] [address] [place], [address] Chloride [Moles/Vol] 109 mmol/L High 98-108 [facility] Comment on above: Order Comment: Order Date: 10/05/24Order Info: 666-07 - BMPOrder Date: 06/14/24Order Info: 785-07 - CMPOrder Info: - LIPIDOrder Info: [id number] - TSH Performed By: #### L 501.9520, L100.0500, L500.4100, L500.4050 ####[facility] [address] [place], [address] CO2 [Moles/Vol] 19.8 mmol/L Low 21.0-32.0 [facility] Comment on above: Order Comment: Order Date: 10/05/24Order Info: 666- - BMPOrder Date: 06/14/24Order Info: 86-1 - CMPOrder Info: [id number] - LIPIDOrder Info: [id number] - TSH Performed By: #### L 501.9520, L100.0500, L500.4100, L500.4050 ####[facility] [address] [place], [place], [address] Creatinine [Mass/Vol] 1.50 mg/dL High 0.70-1.20 [facility] Comment on above: Order Comment: Order Date: 10/05/24Order Info: 666-07 - BMPOrder Date: 06/14/24Order Info: 785-07 - CMPOrder Info: [id number] - LIPIDOrder Info: [id number] - TSH Performed By: #### L 501.9520, L100.0500, L500.4100, L500.4050 ####[facility] [address] [place], [place], [address] GAP 12 Normal 5-15 [facility] Comment on above: Order Comment: Order Date: 10/05/24Order Info: 666-07 - BMPOrder Date: 06/14/24Order Info: 785-07 - CMPOrder Info: [id number] - LIPIDOrder Info: [id number] - TSH Performed By: #### L 501.9520, L100.0500, L500.4100, L500.4050 ####[facility] [address] [place], [place], [address] GFR/1.73 sq M.predicted among non-blacks MDRD (S/P/Bld) [Vol rate/Area] 46 mL/min/{1.73_m2} Low >60 [facility] Comment on above: Order Comment: Order Date: 10/05/24Order Info: 666-07 - BMPOrder Date: 06/14/24Order Info: 785- - CMPOrder Info: [id number] - LIPIDOrder Info: 3 - TSH Result Comment: mL/m in/1.73m2 CKD-EPI Creatinine Equation (2020) Performed By: #### L 501.9520, L100.0500, L500.4100, L500.4050 ####[facility] [address] [place], [address] Globulin (S) [Mass/Vol] 2.5 g/dL Normal 2.2-4.2 [facility] Comment on above: Order Comment: Order Date: 10/05/24Order Info: 666-07 - BMPOrder Date: 06/14/24Order Info: 785-07 - CMPOrder Info: [id number] - LIPIDOrder Info: [id number] - TSH Performed By: #### L 501.9520, L100.0500, L500.4100, L500.4050 ####[facility] [address] [place], [address] Glucose [Mass/Vol] 86 mg/dL Normal 70-99 [facility] Comment on above: Order Comment: Order Date: 10/05/24Order Info: 666-07 - BMPOrder Date: 06/14/24Order Info: 785-07 - CMPOrder Info: - LIPIDOrder Info: [id number] - TSH Performed By: #### L 501.9520, L100.0500, L500.4100, L500.4050 ####[facility] [address] [place], [address] Potassium [Moles/Vol] 4.0 mmol/L Normal 3.3-5.1 [facility] Comment on above: Order Comment: Order Date: 10/05/24Order Info: 666-07 - BMPOrder Date: 06/14/24Order Info: 785-07 - CMPOrder Info: [id number] - LIPIDOrder Info: [id number] - TSH Performed By: #### L 501.9520, L100.0500, L500.4100, L500.4050 ####[facility] [address] [place], [address] Sodium [Moles/Vol] 141 mmol/L Normal 133-145 [facility] Comment on above: Order Comment: Order Date: 10/05/24Order Info: 06-1 - BMPOrder Date: 06/14/24Order Info: 86-1 - CMPOrder Info: [id number] - LIPIDOrder Info: [id number] - TSH Performed By: #### L 501.9520, L100.0500, L500.4100, L500.4050 ####[facility] [address] [place], [address] T PROT 6.3 g/dL Normal 5.9-8.4 [facility] Comment on above: Order Comment: Order Date: 10/05/24Order Info: 666- - BMPOrder Date: 06/14/24Order Info: 785-1 - CMPOrder Info: [id number] - LIPIDOrder Info: [id number] - TSH Performed By: #### L 501.9520, L100.0500, L500.4100, L500.4050 ####[facility] [address] [place], [address] Urea nitrogen [Mass/Vol] 15 mg/dL Normal 4-19 [facility] Comment on above: Order Comment: Order Date: 10/05/24Order Info: 06- - BMPOrder Date: 06/14/24Order Info: [id number] - CMPOrder Info: [id number] - LIPIDOrder Info: [id number] - TSH Performed By: #### L 501.9520, L100.0500, L500.4100, L500.4050 ####[facility] [address] [place], [address] Erythrocyte distribution wid th ratioOrdered By: Tl Guzman on 10-05-2024 Erythrocyte distribution width (RBC) [Ratio] 13.8 % 11.6-14.6 [facility] Erythrocyte distribution wid th standard deviationOrdered By: Tl Guzman on 10-05-2024 Erythrocyte distribution width (RBC) [Entitic vol] 46.4 fL High 35.1-43.9 [facility] GFR/1.73 sq M.predicted juan pablo g non-blacks MDRD (S/P/Bld) [Vol rate/Area]Ordered By: Tl Guzman on 10-05-2024 Estimated GFR (MDRD) Non-Af Amer 46 Low >60 [facility] Comment on above: mL/min/1.73m2 CKD-EP I Creatinine Equation (2020) Hematocrit Auto (Bld) [Volum e fraction]Ordered By: Tl Guzman on 10-05-2024 Hematocrit (Bld) [Volume fraction] 34.7 % Low 40-54 [facility] Hemoglobin measurementOrdere d By: Tl Guzman on 10-05-2024 Hemoglobin (Bld) [Mass/Vol] 11.9 g/dL Low 13.0-16.5 [facility] LDL calc ser/plasOrdered By: Tl Guzman on 10-05-2024 LDL Cholesterol, Calculated 44 mg/dL [facility] Comment on above: Uaxirxmivg=298-477 m g/dL & Higher Pcxx=663 mg/dL or greater Laboratory - Chemistry and C hemistry - challengeOrdered By: Tl Guzman on 10-05-2024 AST [Catalytic activity/Vol] 27 U/L <38 [facility] Lipid Profileon 10-05-2024 CHOL:HDL 2.28 Normal [facility] Comment on above: Order Comment: Order Date: 10/05/24Order Info: [id number] - BMPOrder Date: 06/14/24Order Info: 0786-1 - CMPOrder Info: [id number] - LIPIDOrder Info: [id number] - TSH Performed By: #### L 501.1041, L100.0500, L500.4100, L500.4050 ####[facility] [address] [place], [address] Cholesterol [Mass/Vol] 102 mg/dL Normal <=200 [facility] Comment on above: Order Comment: Order Date: 10/05/24Order Info: 06-1 - BMPOrder Date: 06/14/24Order Info: 07-1 - CMPOrder Info: [id number] - LIPIDOrder Info: [id number] - TSH Result Comment: Chol esterol level, Desirable <200 mg/dL Borderline high cholesterol 200-239 mg/dL High cholesterol >=240 mg/dL Recommendations of the NCEP Adult Treatment Panel for the following risk-cutoff thresholds for the [place] population. Performed By: #### L 501.9520, L100.0500, L500.4100, L500.4050 ####[facility] [address] [place], [place], [address] Cholesterol in HDL [Mass/Vol] 45 mg/dL Normal [facility] Comment on above: Order Comment: Order Date: 10/05/24Order Info: [id number] - BMPOrder Date: 06/14/24Order Info: 1 - CMPOrder Info: [id number] - LIPIDOrder Info: 3 - TSH Result Comment: Bettina onal Cholesterol Education Program (NCEP) guidelines: <40 mg/dL: Low HDL-cholesterol (major risk factor for CHD) >= 60 mg/dL: High HDL-cholesterol (negative risk factor for CHD) HDL-cholesterol is affected by a number of factors, e.g. smoking, exercise, hormones, sex and age. Performed By: #### L 501.9520, L100.0500, L500.4100, L500.4050 ####[facility] [address] [place], [place], [address] Cholesterol in LDL [Mass/Vol] 44 mg/dL Normal [facility] Comment on above: Order Comment: Order Date: 10/05/24Order Info: 06 - BMPOrder Date: 06/14/24Order Info: 785-1 - CMPOrder Info: [id number] - LIPIDOrder Info: [id number] - TSH Result Comment: Bord dixkij=388-464 mg/dL Higher Kqxh=441 mg/dL or greater Performed By: #### L 501.9520, L100.0500, L500.4100, L500.4050 ####[facility] [address] [place], [address] Cholesterol in VLDL [Mass/Vol] 13 mg/dL Normal 5-40 [facility] Comment on above: Order Comment: Order Date: 10/05/24Order Info: [id number] - BMPOrder Date: 06/14/24Order Info: 0786-1 - CMPOrder Info: [id number] - LIPIDOrder Info: [id number] - TSH Performed By: #### L 501.9520, L100.0500, L500.4100, L500.4050 ####[facility] [address] [place], [address] Triglyceride [Mass/Vol] 64 mg/dL Normal [facility] Comment on above: Order Comment: Order Date: 10/05/24Order Info: [id number] - BMPOrder Date: 06/14/24Order Info: [id number] - CMPOrder Info: [id number] - LIPIDOrder Info: [id number] - TSH Result Comment: The drugs N-Acetylcysteine and Metamizole may falsely depress this assay. Normal range: <150 mg/dL Borderline High: 150-199 mg/dL High: 200-499 mg/dL Very High: >500 mg/dL Performed By: #### L 501.9520, L100.0500, L500.4100, L500.4050 ####[facility] [address] [place], [address] MCV (mean corpuscular volume ) determinationOrdered By: Tl Guzman on 10-05-2024 MCV (RBC) [Entitic vol] 91.8 fL 80-94 [facility] Mean corpuscular hemoglobin (MCH) determinationOrdered By: Tl Guzman on 10-05-2024 MCH (RBC) [Entitic mass] 31.5 pg 27.0-32.0 [facility] Mean corpuscular hemoglobin concentration (MCHC) determinationOrdered By: Tl Guzman on 10-05-2024 MCHC (RBC) [Mass/Vol] 34.3 g/dL 32-36 [facility] Mean platelet volume determi nationOrdered By: Tl Guzman on 10-05-2024 Platelet mean volume (Bld) [Entitic vol] 8.3 fL 6.2-12.0 [facility] Platelet countOrdered By: Emeka Guzman on 10-05-2024 Platelets (Bld) [#/Vol] 263 10*3/uL 150-450 [facility] Potassium (Unsp spec) [Mass/ Vol]Ordered By: Tl Guzman on 10-05-2024 Potassium [Moles/Vol] 4.0 mmol/L 3.3-5.1 [facility] RBC Auto (Bld) [#/Vol]Ordere d By: Tl Guzman on 10-05-2024 RBC (Bld) [#/Vol] 3.78 10*6/uL Low 4.6-6.2 [facility] Screening total cholesterol/ high density lipoprotein (HDL) cholesterol ratioOrdered By: Tl Guzman on 10-05-2024 Cholesterol.total/Chol esterol in HDL [Mass ratio] 2.28 {ratio} [facility] Serum creatinine measurement (mass/volume)Ordered By: Tl Guzman on 10-05-2024 Creatinine [Mass/Vol] 1.50 mg/dL High 0.70-1.20 [facility] Serum globulin measurementOr dered By: Tl Guzman on 10-05-2024 Globulin (S) [Mass/Vol] 2.5 g/dL 2.2-4.2 [facility] Serum glucose measurement (m ass/volume)Ordered By: Tl Guzman on 10-05-2024 Glucose [Mass/Vol] 86 mg/dL 70-99 [facility] Serum or plasma alanine soler otransferase (ALT) measurementOrdered By: Tl Guzman on 10-05-2024 ALT [Catalytic activity/Vol] 17 U/L <47 [facility] Serum or plasma albumin rosana urement (mass/volume)Ordered By: Tl Guzman on 10-05-2024 Albumin [Mass/Vol] 3.9 g/dL 3.4-4.8 [facility] Serum or plasma albumin/glob ulin mass ratioOrdered By: Tl Guzman on 10-05-2024 Albumin/Globulin [Mass ratio] 1.5 {ratio} 0.9-2.4 [facility] Serum or plasma alkaline riana sphatase measurementOrdered By: Tl Guzman on 10-05-2024 ALP [Catalytic activity/Vol] 76 U/L 40-129 [facility] Serum or plasma calcium rosana urement (mass/volume)Ordered By: Tl Guzman on 10-05-2024 Calcium [Mass/Vol] 8.7 mg/dL 7.6-11.0 [facility] Serum or plasma cholesterol in HDL measurement (mass/volume)Ordered By: Tl Guzman on 10-05-2024 Cholesterol in HDL [Mass/Vol] 45 mg/dL >40 [facility] Comment on above: National Cholesterol Education Program (NCEP) guidelines:<40 mg/dL: Low HDL-cholesterol (major risk factor for CHD)>= 60 mg/dL: High HDL-cholesterol (negative risk factor for CHD)HDL-cholesterol is affected by a number of factors, e.g. smoking, exercise, hormones, sex and age. Serum or plasma cholesterol measurement (mass/volume)Ordered By: Tl Guzman on 10-05-2024 Cholesterol [Mass/Vol] 102 mg/dL <201 [facility] Comment on above: Cholesterol level, D esirable <200 mg/dLBorderline high cholesterol 200-239 mg/dLHigh cholesterol >=240 mg/dLRecommendations of the NCEP Adult Treatment Panel for the following risk-cutoff thresholds for the [place] population. Serum or plasma urea nitroge n measurement (mass/volume)Ordered By: Tl Guzman on 10-05-2024 Urea nitrogen [Mass/Vol] 15 mg/dL 4-19 [facility] Sodium levelOrdered By: Cash Guzman on 10-05-2024 Sodium [Moles/Vol] 141 mmol/L 133-145 [facility] TSH DL <= 0.005 mIU/L QnOrde red By: Tl Guzman on 10-05-2024 Thyroid Stimulating Hormone (TSH) 20.300 uIU/mL High 0.300-4.20 0 [facility] Thyroid Stim Hormone (TSH)on 10-05-2024 TSH 20.300 uIU/mL High 0.300-4.20 0 [facility] Comment on above: Order Comment: Order Date: 10/05/24Order Info: [id number] - BMPOrder Date: 06/14/24Order Info: [id number] - CMPOrder Info: [id number] - LIPIDOrder Info: [id number] - TSH Performed By: #### L 501.9520, L100.0500, L500.4100, L500.4050 ####[facility] [address] [place], [place], [id number] Total proteinOrdered By: Pete Guzman on 10-05-2024 Protein [Mass/Vol] 6.3 g/dL 5.9-8.4 [facility] Triglycerides measurementOrd ered By: Tl Guzman on 10-05-2024 Triglyceride [Mass/Vol] 64 mg/dL <199 [facility] Comment on above: The drugs N-Acetylcy steine and Metamizole may falsely depress this assay. Normal range: <150 mg/dLBorderline High: 150-199 mg/dLHigh: 200-499 mg/dLVery High: >500 mg/dL White blood cell (WBC) count Ordered By: Tl Guzman on 10-05-2024 WBC (Bld) [#/Vol] 6.7 10*3/uL 4.4-11.0 [facility] Culture, Blood (WB)on 2024 CUB Blood cultures x2, f rom two different sites No growth in 5 days. Normal [facility] Comment on above: Performed By: #### L 500.4050, M200.1000, L503.6005, L100.0100, L300.3900 ####[facility] [address] [place], [place], [address] Absolute neutrophil countOrd ered By: Suresh Aranda on 09-25-2024 Neutrophils (Bld) [#/Vol] 7.4 10*3/uL 2.0-7.7 [facility] BUN/creatinine ratioOrdered By: Suresh Aranda on 09-25-2024 Urea nitrogen/Creatinine [Mass ratio] 15.1 mg/mg 10- [facility] Basic Metabolic Profile (BMP )on 09-25-2024 Anion gap [Moles/Vol] 11 mmol/L Normal 5-15 [facility] Comment on above: Performed By: #### L 100.0100, L500.2500 ####[facility] [address] [place], [address] BUN/CRE 15.1 RATIO Normal - [facility] Comment on above: Performed By: #### L 100.0100, L500.2500 ####[facility] [address] [place], [address] Calcium [Mass/Vol] 8.5 mg/dL Normal 7.6-11.0 [facility] Comment on above: Performed By: #### L 100.0100, L500.2500 ####[facility] [address] [place], [address] Chloride [Moles/Vol] 108 mmol/L Normal 96-108 [facility] Comment on above: Performed By: #### L 100.0100, L500.2500 ####[facility] [address] [place], [address] CO2 [Moles/Vol] 20.5 mmol/L Low 22.0-29.0 [facility] Comment on above: Performed By: #### L 100.0100, L500.2500 ####[facility] [address] [place], [address] Creatinine [Mass/Vol] 1.70 mg/dL High 0.70-1.20 [facility] Comment on above: Performed By: #### L 100.0100, L500.2500 ####[facility] [address] [place], [address] ECRCL 31.76 ml/min Normal [facility] Comment on above: Performed By: #### L 100.0100, L500.2500 ####[facility] [address] [place], [address] GFR/1.73 sq M.predicted among non-blacks MDRD (S/P/Bld) [Vol rate/Area] 40 mL/min/{1.73_m2} Low >60 [facility] Comment on above: Result Comment: mL/m in/1.73m2 CKD-EPI Creatinine Equation (2020) Performed By: #### L 100.0100, L500.2500 ####[facility] [address] [place], [address] Glucose [Mass/Vol] 96 mg/dL Normal 70-99 [facility] Comment on above: Performed By: #### L 100.0100, L500.2500 ####[facility] [address] [place], [address] Potassium [Moles/Vol] 4.3 mmol/L Normal 3.3-5.1 [facility] Comment on above: Performed By: #### L 100.0100, L500.2500 ####[facility] [address] [place], [address] Sodium [Moles/Vol] 140 mmol/L Normal 133-145 [facility] Comment on above: Performed By: #### L 100.0100, L500.2500 ####[facility] [address] [place], [address] Urea nitrogen [Mass/Vol] 26 mg/dL High 4-19 [facility] Comment on above: Performed By: #### L 100.0100, L500.2500 ####[facility] [address] [place], [address] Basophil percentageOrdered B y: Suresh Aranda on 09-25-2024 Basophils/100 WBC (Bld) 0.2 % 0-1 [facility] CBC W/Diff, Automatedon SMEAR COMMENT SCANNED Normal [facility] Comment on above: Performed By: #### L 100.0100, L500.2500 ####[facility] [address] [place], [address] Carbon dioxide measurementOr dered By: Suresh Aranda on 09-25-2024 CO2 [Moles/Vol] 20.5 mmol/L Low 22.0-29.0 [facility] Chest PA and Lateralon 09-25 Chest PA and Lateral [facility] Imaging Services [address] [place], [place] [address] Chest PA and Lateral MR#: [id number] Acct: [id number] Name: RUDDY RANDOLPH Rep #: [id number] : 1940 M 84 From: Isaiah Richter MD PCP: Dr. Tl Guzman MD Status: DIS COLE Study: Chest PA and Lateral Date of Exam: 09/25/24 Exam# [id number] Ordering Dr: Suresh Aranda DO PROCEDURE: CHEST [...] Tl Guzman MD; Dr. Suresh Aranda DO Winter Sports Manager: Signed Normal [facility] Chloride measurementOrdered By: Suresh Aranda on 09-25-2024 Chloride [Moles/Vol] 108 mmol/L 96-108 [facility] Discharge Instructionon Discharge Instruction [facility] Medical Records Department [address] [place] [address] Instructions for Home/Discharge Instructions 09/25/24 1150 MR#: [id number] Acct: [id number] Name: RUDDY RANDOLPH Rep #: [id number] : 1940 84 From: Suresh Aranda DO [...] Dr. Tl Guzman MD * Signed Normal [facility] Eosinophil percentageOrdered By: Suresh Aranda on 09-25-2024 Eosinophils/100 WBC (Bld) 0.1 % 0-5 [facility] Erythrocyte distribution wid th ratioOrdered By: Suresh Aranda on 09-25-2024 Erythrocyte distribution width (RBC) [Ratio] 13.9 % 11.6-14.6 [facility] Erythrocyte distribution wid th standard deviationOrdered By: Suresh Aranda on 09-25-2024 Erythrocyte distribution width (RBC) [Entitic vol] 45.7 fL High 35.1-43.9 [facility] Estimation of creatinine clarita aranceOrdered By: Suresh Aranda on 09-25-2024 Estimated Creatinine Clearance Calc 31.76 ml/min [facility] GFR/1.73 sq M.predicted juan pablo g non-blacks MDRD (S/P/Bld) [Vol rate/Area]Ordered By: Suresh Aranda on 09-25-2024 Estimated GFR (MDRD) Non-Af Amer 40 Low >60 [facility] Comment on above: mL/min/1.73m2 CKD-EP I Creatinine Equation (2020) Hematocrit Auto (Bld) [Volum e fraction]Ordered By: Suresh Aranda on 09-25-2024 Hematocrit (Bld) [Volume fraction] 30.4 % Low 40-54 [facility] Hemoglobin measurementOrdere d By: Suresh Aranda on 09-25-2024 Hemoglobin (Bld) [Mass/Vol] 10.8 g/dL Low 13.0-16.5 [facility] Immature granulocytes/100 WB C Auto (Bld)Ordered By: Suresh Aranda on 09-25-2024 Immature granulocytes/100 WBC (Bld) 0.500 % 0.0-0.9 [facility] Comment on above: IG% - Immature Granu locytes (promyelocytes, myelocytes and metamyelocytes) > 1% indicates that a LEFT SHIFT is Present. Lymphocytes Auto (Unsp spec) [#/Vol]Ordered By: Suresh Aranda on 09-25-2024 Lymphocytes (Bld) [#/Vol] 1.14 10*3/uL 0.83-4.51 [facility] Lymphocytes/100 WBC Auto (Un sp spec)Ordered By: Suresh Aranda on 09-25-2024 Lymphocytes/100 WBC (Bld) 12.4 % Low 19-41 [facility] MCV (mean corpuscular volume ) determinationOrdered By: Suresh Aranda on 09-25-2024 MCV (RBC) [Entitic vol] 89.7 fL 80-94 [facility] Manual differential comment Regan (Bld) [Interp]Ordered By: Suresh Aranda on 09-25-2024 Differential Comment SCANNED [facility] Mean corpuscular hemoglobin (MCH) determinationOrdered By: Suresh Aranda on 09-25-2024 MCH (RBC) [Entitic mass] 31.9 pg 27.0-32.0 [facility] Mean corpuscular hemoglobin concentration (MCHC) determinationOrdered By: Suresh Aranda on 09-25-2024 MCHC (RBC) [Mass/Vol] 35.5 g/dL 32-36 [facility] Mean platelet volume determi nationOrdered By: Suresh Aranda on 09-25-2024 Platelet mean volume (Bld) [Entitic vol] 8.5 fL 6.2-12.0 [facility] Monocyte percentageOrdered B y: Suresh Aranda on 09-25-2024 Monocytes/100 WBC (Bld) 6.2 % 0-10 [facility] Neutrophil percentageOrdered By: Suresh Aranda on 09-25-2024 Neutrophils/100 WBC (Bld) 80.6 % High 47-70 [facility] Nucleated red blood cell per centageOrdered By: Suresh Aranda on 09-25-2024 Nucleated RBC/100 WBC (Bld) [Ratio] 0 % 0-5 [facility] Platelet countOrdered By: Vj Aranda on 09-25-2024 Platelets (Bld) [#/Vol] 153 10*3/uL 150-450 [facility] RBC Auto (Bld) [#/Vol]Ordere d By: Suresh Aranda on 09-25-2024 RBC (Bld) [#/Vol] 3.39 10*6/uL Low 4.6-6.2 [facility] Serum creatinine measurement (mass/volume)Ordered By: Suresh Aranda on 09-25-2024 Creatinine [Mass/Vol] 1.70 mg/dL High 0.70-1.20 [facility] Serum glucose measurement (m ass/volume)Ordered By: Suresh Aranda on 09-25-2024 Glucose [Mass/Vol] 96 mg/dL 70-99 [facility] Serum or plasma anion gap de termination (moles/volume)Ordered By: Suresh Aranda on 09-25-2024 Anion gap [Moles/Vol] 11 mmol/L 5-15 [facility] Serum or plasma calcium rosana urement (mass/volume)Ordered By: Suresh Aranda on 09-25-2024 Calcium [Mass/Vol] 8.5 mg/dL 7.6-11.0 [facility] Serum or plasma potassium me asurementOrdered By: Suresh Aranda on 09-25-2024 Potassium [Moles/Vol] 4.3 mmol/L 3.3-5.1 [facility] Serum or plasma sodium measu rement (moles/volume)Ordered By: Suresh Aranda on 09-25-2024 Sodium [Moles/Vol] 140 mmol/L 133-145 [facility] Serum or plasma urea nitroge n measurement (mass/volume)Ordered By: Suresh Aranda on 09-25-2024 Urea nitrogen [Mass/Vol] 26 mg/dL High 4-19 [facility] Urine Cultureon 09-25-2024 URC Culture exhibits no growth. Normal [facility] Comment on above: Performed By: #### M 100.678, L400.0001, M100.2200 ####[facility] [address] [facility] [place], [place], [address] White blood cell (WBC) count Ordered By: Suresh Aranda on 09-25-2024 WBC (Bld) [#/Vol] 9.2 10*3/uL 4.4-11.0 [facility] 12 Lead EKGon 09-24-2024 12 Lead EKG [facility] Cardiovascular Services [address] [place] [address] 12 Lead EKG 09/24/24 0932 MR#: [id number] Acct: [id number] Name: RUDDY RANDOLPH Rep #: [id number] : 1940 84 From: Roosevelt Jensen MD [...] block Abnormal ECG Confirmed by Roosevelt Jensen ([id number]), newspaper or periodical editor HARJIT BETHEA ([id number]) on 09/27/2024 10:46:23 AM Referred By: GREG Confirmed By: Roosevelt Jensen 09/27/24 1046 Date Roosevelt Jensen MD CC: Dr. Tl Guzman MD; Dr. Tate Meneses DO; Dr. Suresh Aranda DO Signed Normal [facility] Bacteria LM.HPF (Urine sed) [#/Area]Ordered By: Tate Meneses on 09-24-2024 Urine Bacteria RARE /hpf None Seen [facility] Basic Metabolic Profile (BMP )on 09-24-2024 Anion gap [Moles/Vol] 12 mmol/L Normal 5-15 [facility] Comment on above: Performed By: #### L 500.2500 ####[facility] [address] [place], [place], [id number] BUN/CRE 13.8 RATIO Normal 10-20 [facility] Comment on above: Performed By: #### L 500.2500 ####[facility] [address] [place], [place], [address] Calcium [Mass/Vol] 8.2 mg/dL Normal 7.6-11.0 [facility] Comment on above: Performed By: #### L 500.2500 ####[facility] [address] [place], [address] Chloride [Moles/Vol] 108 mmol/L Normal 96-108 [facility] Comment on above: Performed By: #### L 500.2500 ####[facility] [address] [place], [address] CO2 [Moles/Vol] 19.9 mmol/L Low 22.0-29.0 [facility] Comment on above: Performed By: #### L 500.2500 ####[facility] [address] [place], [address] Creatinine [Mass/Vol] 1.54 mg/dL High 0.70-1.20 [facility] Comment on above: Performed By: #### L 500.2500 ####[facility] [address] [place], [address] ECRCL 37.53 ml/min Normal [facility] Comment on above: Performed By: #### L 500.2500 ####[facility] [address] [place], [address] GFR/1.73 sq M.predicted among non-blacks MDRD (S/P/Bld) [Vol rate/Area] 44 mL/min/{1.73_m2} Low >60 [facility] Comment on above: Result Comment: mL/m in/1.73m2 CKD-EPI Creatinine Equation (2020) Performed By: #### L 500.2500 ####[facility] [address] [place], [address] Glucose [Mass/Vol] 111 mg/dL High 70-99 [facility] Comment on above: Performed By: #### L 500.2500 ####[facility] [address] [place], [address] Potassium [Moles/Vol] 3.6 mmol/L Normal 3.3-5.1 [facility] Comment on above: Performed By: #### L 500.2500 ####[facility] [address] [place], [address] Sodium [Moles/Vol] 140 mmol/L Normal 133-145 [facility] Comment on above: Performed By: #### L 500.2500 ####[facility] [address] [place], [address] Urea nitrogen [Mass/Vol] 21 mg/dL High 4-19 [facility] Comment on above: Performed By: #### L 500.2500 ####[facility] [address] [place], [address] Bilirubin Test strip Ql (U)O rdered By: Tate Meneses on 09-24-2024 Bilirubin Ql (U) Negative Negative [facility] Bilirubin, totalOrdered By: Tate Meneses on 09-24-2024 Bilirubin [Mass/Vol] 0.85 mg/dL 0.00-1.30 [facility] Blood cultureOrdered By: Jenaro Meneses on 09-24-2024 Bacteria identified Cx Nom (Bld) No growth in 5 days. [facility] Bacteria identified Cx Nom (Bld) No growth in 5 days. [facility] CBC W/Diff, Automatedon 08-29 Absolute Lymph 0.22 X10 3/uL Low 0.83-4.51 [facility] Comment on above: Performed By: #### L 500.4050, M200.1000, L503.6005, L100.0100, L300.3900 ####[facility] [address] [place], [address] Absolute Neut 3.3 X10 3/uL Normal 2.0-7.7 [facility] Comment on above: Performed By: #### L 500.4050, M200.1000, L503.6005, L100.0100, L300.3900 ####[facility] [address] [place], [address] Basophils/100 WBC (Bld) 0.3 % Normal 0-1 [facility] Comment on above: Performed By: #### L 500.4050, M200.1000, L503.6005, L100.0100, L300.3900 ####[facility] [address] [place], [address] Eosinophils/100 WBC (Bld) 0.0 % Normal 0-5 [facility] Comment on above: Performed By: #### L 500.4050, M200.1000, L503.6005, L100.0100, L300.3900 ####[facility] [address] [place], [address] Erythrocyte distribution width (RBC) [Ratio] 13.5 % Normal 11.6-14.6 [facility] Comment on above: Performed By: #### L 500.4050, M200.1000, L503.6005, L100.0100, L300.3900 ####[facility] [address] [place], [address] Hematocrit (Bld) [Volume fraction] 28.0 % Low 40-54 [facility] Comment on above: Performed By: #### L 500.4050, M200.1000, L503.6005, L100.0100, L300.3900 ####[facility] [address] [place], [address] Hemoglobin (Bld) [Mass/Vol] 9.9 g/dL Low 13.0-16.5 [facility] Comment on above: Performed By: #### L 500.4050, M200.1000, L503.6005, L100.0100, L300.3900 ####[facility] [address] [place], [address] IG% 0.300 Normal 0.0-0.9 [facility] Comment on above: Result Comment: IG% - Immature Granulocytes (promyelocytes, myelocytes and metamyelocytes) > 1% indicates that a LEFT SHIFT is Present. Performed By: #### L 500.4050, M200.1000, L503.6005, L100.0100, L300.3900 ####[facility] [address] [place], [address] Lymphocytes/100 WBC (Bld) 5.7 % Low 19-41 [facility] Comment on above: Performed By: #### L 500.4050, M200.1000, L503.6005, L100.0100, L300.3900 ####[facility] [address] [place], [address] MCH (RBC) [Entitic mass] 31.6 pg Normal 27.0-32.0 [facility] Comment on above: Performed By: #### L 500.4050, M200.1000, L503.6005, L100.0100, L300.3900 ####[facility] [address] [place], [address] MCHC (RBC) [Mass/Vol] 35.4 g/dL Normal 32-36 [facility] Comment on above: Performed By: #### L 500.4050, M200.1000, L503.6005, L100.0100, L300.3900 ####[facility] [address] [place], [address] MCV (RBC) [Entitic vol] 89.5 fL Normal 80-94 [facility] Comment on above: Performed By: #### L 500.4050, M200.1000, L503.6005, L100.0100, L300.3900 ####[facility] [address] [place], [address] Monocytes/100 WBC (Bld) 8.0 % Normal 0-10 [facility] Comment on above: Performed By: #### L 500.4050, M200.1000, L503.6005, L100.0100, L300.3900 ####[facility] [address] [place], [address] Neutrophils/100 WBC (Bld) 85.7 % High 47-70 [facility] Comment on above: Performed By: #### L 500.4050, M200.1000, L503.6005, L100.0100, L300.3900 ####[facility] [address] [place], [address] Nucleated RBC (Bld) [#/Vol] 0 10*3/uL Normal 0-5 [facility] Comment on above: Performed By: #### L 500.4050, M200.1000, L503.6005, L100.0100, L300.3900 ####[facility] [address] [place], [address] Platelet mean volume (Bld) [Entitic vol] 8.6 fL Normal 6.2-12.0 [facility] Comment on above: Performed By: #### L 500.4050, M200.1000, L503.6005, L100.0100, L300.3900 ####[facility] [address] [place], [address] Platelets (Bld) [#/Vol] 118 10*3/uL Low 150-450 [facility] Comment on above: Performed By: #### L 500.4050, M200.1000, L503.6005, L100.0100, L300.3900 ####[facility] [address] [place], [address] RBC (Bld) [#/Vol] 3.13 10*6/uL Low 4.6-6.2 [facility] Comment on above: Performed By: #### L 500.4050, M200.1000, L503.6005, L100.0100, L300.3900 ####[facility] [address] [place], [address] RDW SD 43.8 fl Normal 35.1-43.9 [facility] Comment on above: Performed By: #### L 500.4050, M200.1000, L503.6005, L100.0100, L300.3900 ####[facility] [address] [place], [address] WBC (Bld) [#/Vol] 3.9 10*3/uL Low 4.4-11.0 [facility] Comment on above: Performed By: #### L 500.4050, M200.1000, L503.6005, L100.0100, L300.3900 ####[facility] [address] [place], [address] CTA Chest W/WO Contraston CTA Chest W/WO Contrast [facility] Imaging Services [address] [place] [address] CTA Chest W/WO Contrast MR#: [id number] Acct: [id number] Name: RUDDY RANDOLPH Rep #: [id number] : 1940 M 84 From: Edwin alvarez MD PCP: Dr. Tl Guzman MD Status: REG ER Study: CTA Chest W/WO Contrast Date of Exam: 09/24/24 Exam# [id number] Ordering Dr: Tate Meneses DO PROCEDURE: CTA [...] use of iterative reconstruction technique). Reading Location: [id number] CC: Dr. Tl Guzman MD; Dr. Tate Meneses DO Winter [employer] Manager: Signed Normal [facility] Chest 1 View (Portable)on Chest 1 View (Portable) [facility] Imaging Services [address] [place] [id number] Chest 1 View (Portable) MR#: [id number] Acct: [id number] Name: RUDDY RANDOLPH Rep #: [id number] : 1940 84 From: Edwin alvarez MD PCP: Dr. Tl Guzman MD Status: REG ER Study: Chest 1 View (Portable) Date of Exam: 09/24/24 Exam# [id number] Ordering Dr: Tate Meneses DO PROCEDURE: CHEST [...] No acute abnormality is seen. Reading Location: [id number] CC: Dr. Tl Guzman MD; Dr. Tate Meneses DO Winter Sports Manager: Signed Normal [facility] Comprehensive Metabolic Prof ilon 09-24-2024 Albumin [Mass/Vol] 2.3 g/dL Low 3.4-4.8 [facility] Comment on above: Performed By: #### L 500.4050, M200.1000, L503.6005, L100.0100, L300.3900 ####[facility] [address] [place], [address] Albumin/Globulin [Mass ratio] 2.1 {ratio} Normal 0.9-2.4 [facility] Comment on above: Performed By: #### L 500.4050, M200.1000, L503.6005, L100.0100, L300.3900 ####[facility] [address] [place], [address] ALK PHOS 40 U/L Normal 40-129 [facility] Comment on above: Performed By: #### L 500.4050, M200.1000, L503.6005, L100.0100, L300.3900 ####[facility] [address] [place], [address] ALT [Catalytic activity/Vol] 10 U/L Normal <=46 [facility] Comment on above: Performed By: #### L 500.4050, M200.1000, L503.6005, L100.0100, L300.3900 ####[facility] [address] [place], [address] Anion gap [Moles/Vol] 9 mmol/L Normal 5-15 [facility] Comment on above: Performed By: #### L 500.4050, M200.1000, L503.6005, L100.0100, L300.3900 ####[facility] [address] [place], [address] AST [Catalytic activity/Vol] 17 U/L Normal <=37 [facility] Comment on above: Performed By: #### L 500.4050, M200.1000, L503.6005, L100.0100, L300.3900 ####[facility] [address] [place], [address] Bilirubin [Mass/Vol] 0.85 mg/dL Normal 0.00-1.30 [facility] Comment on above: Performed By: #### L 500.4050, M200.1000, L503.6005, L100.0100, L300.3900 ####[facility] [address] [place], [address] BUN/CRE 16.7 RATIO Normal 10-20 [facility] Comment on above: Performed By: #### L 500.4050, M200.1000, L503.6005, L100.0100, L300.3900 ####[facility] [address] [place], [address] Calcium [Mass/Vol] 5.0 mg/dL Invalid Interpretation Code 7.6-11.0 [facility] Comment on above: Result Comment: Crit ical Result(s) Called at 1023: by:Saritha Mgcee to [facility].??Results read back by same. Performed By: #### L 500.4050, M200.1000, L503.6005, L100.0100, L300.3900 ####[facility] [address] [place], [address] Chloride [Moles/Vol] 123 mmol/L High 96-108 [facility] Comment on above: Performed By: #### L 500.4050, M200.1000, L503.6005, L100.0100, L300.3900 ####[facility] [address] [place], [address] CO2 [Moles/Vol] 13.2 mmol/L Low 22.0-29.0 [facility] Comment on above: Performed By: #### L 500.4050, M200.1000, L503.6005, L100.0100, L300.3900 ####[facility] [address] [place], [address] Creatinine [Mass/Vol] 0.85 mg/dL Normal 0.70-1.20 [facility] Comment on above: Performed By: #### L 500.4050, M200.1000, L503.6005, L100.0100, L300.3900 ####[facility] [address] [place], [address] ECRCL 67.99 ml/min Normal [facility] Comment on above: Performed By: #### L 500.4050, M200.1000, L503.6005, L100.0100, L300.3900 ####[facility] [address] [place], [address] GFR/1.73 sq M.predicted among non-blacks MDRD (S/P/Bld) [Vol rate/Area] 86 mL/min/{1.73_m2} Normal >60 [facility] Comment on above: Result Comment: mL/m in/1.73m2 CKD-EPI Creatinine Equation (2020) Performed By: #### L 500.4050, M200.1000, L503.6005, L100.0100, L300.3900 ####[facility] [address] [place], [address] Globulin (S) [Mass/Vol] 1.1 g/dL Low 2.2-4.2 [facility] Comment on above: Performed By: #### L 500.4050, M200.1000, L503.6005, L100.0100, L300.3900 ####[facility] [address] [place], [address] Glucose [Mass/Vol] 90 mg/dL Normal 70-99 [facility] Comment on above: Performed By: #### L 500.4050, M200.1000, L503.6005, L100.0100, L300.3900 ####[facility] [address] [place], [address] Potassium [Moles/Vol] 2.1 mmol/L Invalid Interpretation Code 3.3-5.1 [facility] Comment on above: Result Comment: Crit ical Result(s) Called at 1023: by:Saritha Mcgee to [facility].??Results read back by same. Performed By: #### L 500.4050, M200.1000, L503.6005, L100.0100, L300.3900 ####[facility] [address] [place], [address] Sodium [Moles/Vol] 144 mmol/L Normal 133-145 [facility] Comment on above: Performed By: #### L 500.4050, M200.1000, L503.6005, L100.0100, L300.3900 ####[facility] [address] [place], [address] T PROT 3.5 g/dL Low 5.9-8.4 [facility] Comment on above: Performed By: #### L 500.4050, M200.1000, L503.6005, L100.0100, L300.3900 ####[facility] [address] [place], [address] Urea nitrogen [Mass/Vol] 14 mg/dL Normal 4-19 [facility] Comment on above: Performed By: #### L 500.4050, M200.1000, L503.6005, L100.0100, L300.3900 ####[facility] [address] [place], [address] EGD Reporton 09-24-2024 EGD Report [facility] Medical Records Department [address] [place] [address] EGD Report MR#: [id number] Acct: [id number] Name: RUDDY RANDOLPH Rep #: [id number] : 1940 84 From: Tomas Khan DO [...] 24 hours Procedure Code(s): --- Professional --- 42603, Esophagogastroduodenoscopy, flexible, transoral; with ablation of tumor(s), polyp(s), or other lesion(s) (includes pre- and post-dilation and guide wire passage, when performed) 82038, 51, Esophagogastroduodenoscopy, flexible, transoral; with removal of foreign body(s) 87647, 59, Esophagogastroduodenoscopy, flexible, transoral; with biopsy, single or multiple CPT copyright 2021 [employer]. All rights reserved. The codes documented in this report are preliminary and upon outgoing inspector review may be revised to meet current compliance requirements. Tomas Khan DO 09/24/2024 7:06:42 PM This report has been signed electronically. Number of Addenda: 0 Note Initiated On: 09/24/2024 6:34 PM 09/24/241905 Date Tomas Friend DO Soto Signature: Date (if indicated) CC: Dr. Tl Guzman MD; Tomas Bill Date Dictated: 09/24/24 1834 Date Transcribed: Winter Sports Manager: RF Signed Normal [facility] Emergency Department Summary on 09-24-2024 Emergency Department Summary [facility] Medical Records Department [address] [place] [address] Emergency Department Summary 09/24/24 MR#: [id number] Acct: [id number] Name: RUDDY RANDOLPH Rep #: [id number] : 1940 84 From: Tate Meneses DO PCP: Dr. Tl Guzman MD Status:ADM COLE Location: [place] [address] HPI History of Present Illness Chief Complaint: [...] had esophageal dilatation about 2 years ago. [facility] Medical History Wears glasses Wears partial dentures Alcohol use Thyroid disease High cholesterol Former smoker History of echocardiogram History of stress test Cardiology follow-up encounter History of heart attack Pure hypercholesterolemia Essential hypertension Bladder cancer Hyperlipidemia Hypertension Atherosclerotic heart disease of [place] coronary artery without angina pectoris Home Medications [...] 08:27 08/29 (more content not included)... Normal [facility] Emergency Department Summary [facility] Medical Records Department [address] [place] [address] Emergency Department Summary 09/24/24 MR#: [id number] Acct: [id number] Name: RUDDY RANDOLPH Rep #: [id number] : 1940 84 From: Austin Rivera DO [...] food is stuck he presents for evaluation. [facility] Medical History (Reviewed 03/26/24 @ 11:09 by Malik Avalos FINANCIAL SALES PROFESSIONAL, FINANCIAL SALES PROFESSIONAL-C) Wears glasses Wears partial dentures Alcohol use Thyroid disease High cholesterol Former smoker History of echocardiogram History of stress test Cardiology follow-up encounter History of heart attack Pure hypercholesterolemia Essential hypertension Bladder cancer Hyperlipidemia Hypertension Atherosclerotic heart disease of [place] coronary artery without angina pectoris Home Medications [...] (Reviewed 03/26/24 @ 11:09 by Malik Avalos FINANCIAL SALES PROFESSIONAL, FINANCIAL SALES PROFESSIONAL-C) Father CAD (coronary artery disease) Myocardial infarction, Onset Age: 56 Grandmother Heart disease Uncle Heart disease Surgical History (Reviewed 03/26/24 @ 11:09 by Malik Avalos FINANCIAL SALES PROFESSIONAL, FINANCIAL SALES PROFESSIONAL-C) History of left heart catheterization ( 12/2023) [...] (Reviewed 03/26/24 @ 11:09 by Malik Avalos FINANCIAL SALES PROFESSIONAL, FINANCIAL SALES PROFESSIONAL-C) Smoking Status: Former smoker how long ago [...] Delivery Met (more content not included)... Normal [facility] Epithelial cells.squamous LM Ql (Urine sed)Ordered By: Tate Meneses on 09-24-2024 Epithelial cells.squamous LM.HPF (Urine sed) [#/Area] 0 /[HPF] 0-5 [facility] Glucose Ql (U)Ordered By: Silas Meneses on 09-24-2024 Urine Glucose (UA) Normal mg/dl Normal [facility] H AND P Exam - Hospitaliston 09-24-2024 H&P Exam - Hospitalist [facility] Medical Records Department [address] [place] [address] H P Exam - Hospitalist 09/24/24 1643 MR#: [id number] Acct: [id number] Name: RUDDY RANDOLPH Rep #: [id number] : 1940 84 From: Suresh Aranda DO PCP: Dr. Tl Guzman MD Status:ADM COLE Location: [facility] [id number] HPI - General General Date of Admission: 09/24/24 Date of Service: 09/24/24 Chief Complaint: Fever, confusion HPI Narrative RUDDY RANDOLPH, is a 84 M who presents to the emergency room at [facility] for evaluation of confusion and elevated temperature this morning at home. He was seen last night at the emergency room at [facility] after he choked on some food, [...] on MedSurg. Patient will receive aerosol treatments. [facility] Medical History Wears glasses Wears partial dentures Alcohol use Thyroid disease High cholesterol Former smoker History of echocardiogram History of stress test Cardiology follow-up encounter History of heart attack Pure hypercholesterolemia Essential hypertension Bladder cancer Hyperlipidemia Hypertension Atherosclerotic heart disease of [place] coronary artery without angina pectoris Home Medications [...] frequency, urinar (more content not included)... Normal [facility] Influenza virus A and B and SARS-CoV-2 (COVID-19) and Respiratory syncytial virus RNAOrdered By: Tate Meneses on 09-24-2024 SARS-CoV-2 (COVID-19) RNA JESU+probe Ql (Unsp spec) [facility] International normalized rat io (INR) calculationOrdered By: Tate Meneses on 09-24-2024 INR Coag (Bld) [Relative time] 1.1 {INR} [facility] Ketones Test strip Ql (U)Ord ered By: Tate Meneses on 09-24-2024 Ketones Ql (U) Negative Negative [facility] Laboratory - Chemistry and C hemistry - challengeOrdered By: Tate Meneses on 09-24-2024 AST [Catalytic activity/Vol] 17 U/L <38 [facility] Lactic Acidon 09-24-2024 Lactate [Moles/Vol] 1.9 mmol/L Normal 0.0-2.0 [facility] Comment on above: Order Comment: Y Performed By: #### L 500.4050, M200.1000, L503.6005, L100.0100, L300.3900 ####[facility] [address] [place], [address] Lactic acid measurementOrder ed By: Tate Meneses on 09-24-2024 Lactate [Moles/Vol] 1.9 mmol/L 0.0-2.0 [facility] M100.678on 09-24-2024 M100.678 Normal Reference Ran ge = Negative FLUABV+SARS-CoV-2+RSV Pnl Resp JESU+probe GeneXpert Instrument, PCR method SARS-CoV-2 (COVID 19) Negative INFLUENZA A Negative INFLUENZA B Negative RSV PCR Negative Normal [facility] Comment on above: Performed By: #### M 100.678, L400.0001, M100.2200 ####[facility] [address] [place], [address] MR/CON.PCM.GIon 09-24-2024 MR/CON.PCM.GI [facility] Medical Records Department [address] [place] [address] Consultation - GI 09/24/24 1833 MR#: [id number] Acct: [id number] Name: RUDDY RANDOLPH Rep #: [id number] : 1940 84 From: Tomas Khan DO PCP: Dr. Tl Guzman MD Status:ADM COLE Location: [place] [address] HPI Consult Data Date of Consult: 09/24/24 [...] food is stuck he presents for evaluation. [facility] Medical History Wears glasses Wears partial dentures Alcohol use Thyroid disease High cholesterol Former smoker History of echocardiogram History of stress test Cardiology follow-up encounter History of heart attack Pure hypercholesterolemia Essential hypertension Bladder cancer Hyperlipidemia Hypertension Atherosclerotic heart disease of [place] coronary artery without angina pectoris Home Medications [...] Clarity Clear, Urine pH 5.0, Ur Specific [place] 1.015, U rine Protein 30 H, Urine [...] Std Deviat (more content not included)... Normal [facility] MR/POSTOP.[facility] 09-24-2024 MR/POSTOP.[facility] Medical Records Department [address] [place] [address] Anesthesia Postop Eval I 09/24/241907 MR#: [id number] Acct: [id number] Name: RUDDY RANDOLPH Rep #: [id number] : 1940 84 From: Jose Antonio Cooper MD PCP: Dr. Tl Guzman MD Status:ADM COLE Y Race: C Location: [place] [address] Anesthesia: Postop Eval I Current Vital Signs [...] Antonio Soto Signature: Date CC: Signed Normal [facility] MR/VFGPZDBQ0qc 09-24-2024 MR/POSTOPAN2 [facility] Medical Records Department [address] [place] [address] Anesthesia Postop Eval II 09/24/241909 MR#: [id number] Acct: [id number] Name: RUDDY RANDOLPH Rep #: [id number] : 1940 84 From: Jose Antonio Cooper MD PCP: Dr. Tl Guzman MD Status:ADM COLE Y Race: C Location: [place] [address]-1 Anesthesia Postop Eval I Sum Postop Eval [...] Antonio Marcigner Signature: Date CC: Signed Normal [facility] Magnesiumon 09-24-2024 Magnesium [Mass/Vol] 1.5 mg/dL Normal 1.5-2.2 [facility] Comment on above: Performed By: #### L 501.5200 #### [facility] [address] [place], [place], [address] Magnesium [Mass/Vol] 0.9 mg/dL Invalid Interpretation Code 1.5-2.2 [facility] Comment on above: Result Comment: Crit ical Result(s) Called at 1152: by: Saritha Mcgee to [facility].??Results read back by same. Performed By: #### L 501.5200 ####[facility] [address] [place], [place], [address] Magnesium (Unsp spec) [Mass/ Vol]Ordered By: Tate Meneses on 09-24-2024 Magnesium [Mass/Vol] 1.5 mg/dL 1.5-2.2 [facility] Microscopic analysis of urin e for red blood cells (RBC)Ordered By: Tate Meneses on 09-24-2024 Urine RBC 10-25 SEEN /hpf 0-5 [facility] Mucus LM Ql (Urine sed)Order ed By: Tate Meneses on 09-24-2024 Mucus Ql (Urine sed) 0 SEEN /hpf [facility] Nitrite Test strip Ql (U)Ord ered By: Tate Meneses on 09-24-2024 Nitrite Ql (U) Negative Negative [facility] Partial Thromboplast Timeon 09-24-2024 aPTT Coag (Bld) [Time] 23.6 s Low 24.1-36.2 [facility] Comment on above: Performed By: #### P SUIV #### [facility] [address] [place], [address] Protein Test strip Ql (U)Ord ered By: Tate Mensees on 09-24-2024 Protein Ql (U) 30 mg/dl High Negative [facility] Prothrombin Time w/INRon INR Coag (PPP) [Relative time] 1.1 {INR} Normal [facility] Comment on above: Performed By: #### P SUIV #### [facility] [address] [place], [address] PT Coag (PPP) [Time] 14.9 s Normal 11.7-14.9 [facility] Comment on above: Performed By: #### P SUIV #### [facility] [address] [place], [address] INR Normal [facility] Comment on above: Result Comment: MARBIN ROWLAND, SPOKE WITH AYAAN Performed By: #### L 500.4050, M200.1000, L503.6005, L100.0100, L300.3900 ####[facility] [address] [place], [address] PROTIME Normal 11.7-14.9 [facility] Comment on above: Result Comment: MARBIN ROWLAND SPOKE WITH YAAAN Performed By: #### L 500.4050, M200.1000, L503.6005, L100.0100, L300.3900 ####[facility] [address] [place], [address] Prothrombin timeOrdered By: Tate Meneses on 09-24-2024 PT Coag (PPP) [Time] 14.9 s 11.7-14.9 [facility] Serum globulin measurementOr dered By: Tate Meneses on 09-24-2024 Globulin (S) [Mass/Vol] 1.1 g/dL Low 2.2-4.2 [facility] Serum or plasma alanine soler otransferase (ALT) measurementOrdered By: Tate Meneses on 09-24-2024 ALT [Catalytic activity/Vol] 10 U/L <47 [facility] Serum or plasma albumin rosana urement (mass/volume)Ordered By: Tate Meneses on 09-24-2024 Albumin [Mass/Vol] 2.3 g/dL Low 3.4-4.8 [facility] Serum or plasma albumin/glob ulin mass ratioOrdered By: Tate Meneses on 09-24-2024 Albumin/Globulin [Mass ratio] 2.1 {ratio} 0.9-2.4 [facility] Serum or plasma alkaline riana sphatase measurementOrdered By: Tate Meneses on 09-24-2024 ALP [Catalytic activity/Vol] 40 U/L 40-129 [facility] Surgery Specimen Level Eulalia 09-24-2024 Surgery Specimen Level IV -------- Patient Age/Sex Location Account Attending Physician -------- RUDDY RANDOLPH 84/M MS3 [id number] Dr. Suresh Aranda, DO -------- Specimen: [id number] Received: 09/27/24 Status: VESTA Leblanc Num: [id number] Spec Type: EGD BIOPSY Subm Dr: Tomas [...] totally submitted in one cassette. 09/27/2024 TC: CPT:[id number] -------- Patient Age/Sex Location Account Attending Physician -------- RUDDY RANDOLPH 84/M MS3 [id number] Dr. Suresh Aranda DO -------- Signed (signature on file) Dr. Kimberly Medrano MD 09/28/24 1530 -------- Normal [facility] Comment on above: Performed By: #### P SUIV #### [facility] [address] [facility], [address] TSH DL <= 0.005 mIU/L QnOrde red By: Don Collier on 09-24-2024 Thyroid Stimulating Hormone (TSH) 2.500 uIU/mL 0.300-4.20 0 [facility] Thyroid Stim Hormone (TSH)on 09-24-2024 TSH 2.500 uIU/mL Normal 0.300-4.20 0 [facility] Comment on above: Order Comment: Comme nts: please add on to prev. drawn labs. Performed By: #### L 501.9520 ####[facility] [address] [facility], [address] Total proteinOrdered By: Jenaro Meneses on 09-24-2024 Protein [Mass/Vol] 3.5 g/dL Low 5.9-8.4 [facility] Urinalysis, Completeon 09-24 BACTERIA RARE Normal None Seen [facility] Comment on above: Order Comment: COLLE CTOR TO SPECIFY Performed By: #### M 100.678, L400.0001, M100.2200 ####[facility] [address] [place], [address] EPI,SQUAMOUS 0-5 SEEN Normal 0-5 [facility] Comment on above: Order Comment: LEX CTOR TO SPECIFY Performed By: #### M 100.678, L400.0001, M100.2200 ####[facility] [address] [place], [address] RBC 10-25 SEEN Normal 0-5 [facility] Comment on above: Order Comment: LEX CTOR TO SPECIFY Performed By: #### M 100.678, L400.0001, M100.2200 ####[facility] [address] [place], [address] WBC 5-10 SEEN Normal 0-5 [facility] Comment on above: Order Comment: LEX CTOR TO SPECIFY Performed By: #### M 100.678, L400.0001, M100.2200 ####[facility] [address] [place], [address] Mucus Ql (Urine sed) 0 SEEN Normal [facility] Comment on above: Order Comment: LEX CTOR TO SPECIFY Performed By: #### M 100.678, L400.0001, M100.2200 ####[facility] [address] [place], [address] Urine blood detectionOrdered By: Tate Meneses on 09-24-2024 Urine Occult Blood 250 /ul High Negative [facility] Urine clarityOrdered By: Jenaro Meneses on 09-24-2024 Clarity (U) Clear Clear [facility] Urine color determinationOrd ered By: Tate Meneses on 09-24-2024 Color (U) Yellow Yellow [facility] Urine cultureOrdered By: Jenaro Meneses on 09-24-2024 Bacteria identified Cx Nom (U) Culture exhibits no growth. [facility] Urine leukocyte esterase det ection by dipstickOrdered By: Tate Meneses on 09-24-2024 Leukocyte esterase Test strip Ql (U) 25 /ul High Negative [facility] Urine pHOrdered By: Tate valladares on 09-24-2024 pH (U) 5.0 [pH] 5.0 - 8.0 [facility] Urine specific gravity measu rementOrdered By: Tate Meneses on 09-24-2024 Specific gravity (U) [Rel density] 1.015 1.002-1.03 0 [facility] Urobilinogen Ql (U)Ordered B y: Tate Meneses on 09-24-2024 Urine Urobilinogen Normal mg/dl Normal [facility] White blood cell countOrdere d By: Tate Meneses on 09-24-2024 Urine WBC 5-10 SEEN /hpf 0-5 [facility] aPTT Coag (PPP) [Time]Ordere d By: Tate Meneses on 09-24-2024 aPTT Coag (Bld) [Time] 23.6 s Low 24.1-36.2 [facility] Urine Cultureon 05-22-2024 URC Order Date: 05/20/24 Order Info: 630-4 - CUUR Culture exhibits no growth. Normal [facility] Comment on above: Performed By: #### M 100.2200, L400.0001 ####[facility] [address] [place], [place], [address] Urinalysis, Completeon 05-21 BACTERIA 1+ /hpf Normal None Seen [facility] Comment on above: Order Comment: Order Date: 05/20/24Order Info: 55544-8 - UACCOLLECTOR TO SPECIFY Performed By: #### M 100.2200, L400.0001 ####[facility] [address] [place], [address] WBC 5-10 SEEN Normal 0-5 [facility] Comment on above: Order Comment: Order Date: 05/20/24Order Info: 66580-6 - UACCOLLECTOR TO SPECIFY Performed By: #### M 100.2200, L400.0001 ####[facility] [address] [place], [address] EPI,SQUAMOUS 0-5 SEEN Normal 0-5 [facility] Comment on above: Order Comment: Order Date: 05/20/24Order Info: 22532-6 - UACCOLLECTOR TO SPECIFY Performed By: #### M 100.2200, L400.0001 ####[facility] [address] [place], [address] RBC 25-50 SEEN Normal 0-5 [facility] Comment on above: Order Comment: Order Date: 05/20/24Order Info: 53575-3 - UACCOLLECTOR TO SPECIFY Performed By: #### M 100.2200, L400.0001 ####[facility] [address] [place], [address] Mucus Ql (Urine sed) 0 SEEN Normal [facility] Comment on above: Order Comment: Order Date: 05/20/24Order Info: 97815-9 - UACCOLLECTOR TO SPECIFY Performed By: #### M 100.2200, L400.0001 ####[facility] [address] [place], [address] Basophil percentageOrdered B y: Robson Guzman on 09-15-2023 Bilirubin [Mass/Vol] 1.50 mg/dL 0.20-1.00 [facility] Comment on above: For patients on eltr ombopag therapy, use of [employer] [place] TBIL is not recommended. Chloride [Moles/Vol] 110 mmol/L 98-107 [facility] Glucose [Mass/Vol] 98 mg/dL 74-106 [facility] Hemoglobin (Bld) [Mass/Vol] 13.8 g/dL 13.0-16.5 [facility] Potassium [Moles/Vol] 4.1 mmol/L 3.5-5.1 [facility] Protein [Mass/Vol] 7.0 g/dL 6.4-8.2 [facility] Sodium [Moles/Vol] 139 mmol/L 136-145 [facility] WBC (Bld) [#/Vol] 7.6 10*3/uL 4.4-11.0 [facility] Determination of erythrocyte mean corpuscular volume (MCV)Ordered By: Robson Guzman on 09-15-2023 MCV (RBC) [Entitic vol] 90.4 fL 80-94 [facility] Erythrocyte distribution wid th ratioOrdered By: Robson Guzman on 09-15-2023 Erythrocyte distribution width (RBC) [Ratio] 13.2 % 11.6-14.6 [facility] Erythrocyte distribution wid th standard deviationOrdered By: Robson Guzman on 09-15-2023 Erythrocyte distribution width (RBC) [Entitic vol] 43.2 fL 35.1-43.9 [facility] Hematocrit Auto (Bld) [Volum e fraction]Ordered By: Robson Guzman on 09-15-2023 Hematocrit (Bld) [Volume fraction] 40.4 % 40-54 [facility] Laboratory - Chemistry and C hemistry - challengeOrdered By: Robson Guzman on 09-15-2023 Albumin/Globulin [Mass ratio] 1.3 {ratio} 0.9-2.4 [facility] ALP [Catalytic activity/Vol] 94 U/L 45-117 [facility] ALT [Catalytic activity/Vol] 36 U/L 16-61 [facility] CO2 [Moles/Vol] 26.0 mmol/L 21.0-32.0 [facility] Globulin (S) [Mass/Vol] 3.1 g/dL 2.2-4.2 [facility] Magnesium [Mass/Vol] 2.0 mg/dL 1.6-2.6 [facility] Urea nitrogen/Creatinine [Mass ratio] 14.3 mg/mg 10-20 [facility] Laboratory - Hematology and Cell countsOrdered By: Robson Guzman on 09-15-2023 MCH (RBC) [Entitic mass] 30.9 pg 27.0-32.0 [facility] MCHC (RBC) [Mass/Vol] 34.2 g/dL 32-36 [facility] Platelet mean volume (Bld) [Entitic vol] 8.3 fL 6.2-12.0 [facility] Platelets (Bld) [#/Vol] 201 10*3/uL 150-450 [facility] No Panel InformationOrdered By: Robson Guzman on 09-15-2023 Estimated GFR (MDRD) Amer 70 mL/min >60 [facility] Comment on above: GFR Calc Estimated GFR (MDRD) Non-Af Amer 58 mL/min >60 [facility] Comment on above: Non- GFR Calc Troponin I High Sensitivity 48 pg/mL 3.0-78.0 [facility] Comment on above: Please Note: [place] Units and Gender Specific Reference Ranges. For more information see Policy Stat Procedure [place] High Sensitivity Troponin (TNIH) and attachments. RBC Auto (Bld) [#/Vol]Ordere d By: Robson Guzman on 09-15-2023 RBC (Bld) [#/Vol] 4.47 10*6/uL 4.6-6.2 [facility] Serum or plasma calcium rosana urement (mass/volume)Ordered By: Robson Guzman on 09-15-2023 Calcium [Mass/Vol] 9.2 mg/dL 8.5-10.1 [facility] Serum or plasma creatinine m easurement (mass/volume)Ordered By: Robson Guzman on 09-15-2023 Creatinine [Mass/Vol] 1.26 mg/dL 0.70-1.30 [facility] Comment on above: The validity of the calculated GFR & GFRAA in patients over 70 years has not been determined. Clinical correlation is essential. Serum or plasma thyroid stim ulating hormone (TSH) measurement (units/volume)Ordered By: Robson Guzman on 09-15-2023 TSH Qn 2.03 uIU/mL 0.358-3.74 [facility] Serum or plasma urea nitroge n measurement (mass/volume)Ordered By: Robson Guzman on 09-15-2023 Urea nitrogen [Mass/Vol] 18 mg/dL 7-18 [facility] Thin prep Papanicolaou smear with manual screeningOrdered By: Robson Guzman on 09-15-2023 Thin prep Papanicolaou smear with manual screening 3.9 g/dL 3.2-5.0 [facility] Thin prep Papanicolaou smear with manual screening 18 U/L 15-37 [facility] Thin prep Papanicolaou smear with manual screening 3 5-15 [facility] Absolute lymphocyte countOrd ered By: Jethro Ch on 08-05-2023 Lymphocytes Auto (Unsp spec) [#/Vol] 1.56 10*3/uL 0.83-4.51 [facility] Basophil percentageOrdered B y: Jethro Ch on 08-05-2023 Basophils/100 WBC (Bld) 0.5 % 0-1 [facility] Chloride [Moles/Vol] 111 mmol/L 98-107 [facility] Eosinophils/100 WBC (Bld) 2.7 % 0-5 [facility] Glucose [Mass/Vol] 114 mg/dL 74-106 [facility] Comment on above: Fasting Glucose resu lt from 100 to 125 mg/dL suggests IMPAIRED HOMEOSTASIS per A.D.A. criteria. Neutrophils (Bld) [#/Vol] 4.8 10*3/uL 2.0-7.7 [facility] Neutrophils/100 WBC (Bld) 66.0 % 47-70 [facility] Potassium [Moles/Vol] 3.8 mmol/L 3.5-5.1 [facility] Sodium [Moles/Vol] 141 mmol/L 136-145 [facility] WBC (Bld) [#/Vol] 7.3 10*3/uL 4.4-11.0 [facility] Blood erythrocytes count (nu mber/volume)Ordered By: Jethro Ch on 08-05-2023 RBC (Bld) [#/Vol] 4.41 10*6/uL 4.6-6.2 [facility] Blood hemoglobin measurement (mass/volume)Ordered By: Jethro Ch on 08-05-2023 Hemoglobin (Bld) [Mass/Vol] 14.0 g/dL 13.0-16.5 [facility] Blood lymphocytes/100 leukoc ytesOrdered By: Jethro Ch on 08-05-2023 Lymphocytes/100 WBC (Bld) 21.3 % 19-41 [facility] Blood monocytes/100 leukocyt esOrdered By: Jethro Ch on 08-05-2023 Monocytes/100 WBC (Bld) 9.4 % 0-10 [facility] Blood platelet mean volumeOr dered By: Jethro Ch on 08-05-2023 Platelet mean volume (Bld) [Entitic vol] 8.4 fL 6.2-12.0 [facility] Determination of erythrocyte mean corpuscular volume (MCV)Ordered By: Jethro Ch on 08-05-2023 MCV (RBC) [Entitic vol] 89.1 fL 80-94 [facility] Hematocrit Auto (Bld) [Volum e fraction]Ordered By: Jethro Ch on 08-05-2023 Hematocrit (Bld) [Volume fraction] 39.3 % 40-54 [facility] Laboratory - Chemistry and C hemistry - challengeOrdered By: Jethro Ch on 08-05-2023 CO2 [Moles/Vol] 26.0 mmol/L 21.0-32.0 [facility] Urea nitrogen/Creatinine [Mass ratio] 13.5 mg/mg 10-20 [facility] Laboratory - Hematology and Cell countsOrdered By: Jethro Ch on 08-05-2023 Erythrocyte distribution width (RBC) [Entitic vol] 42.9 fL 35.1-43.9 [facility] Erythrocyte distribution width (RBC) [Ratio] 13.2 % 11.6-14.6 [facility] Immature granulocytes/100 WBC (Bld) 0.100 % 0.0-0.9 [facility] Comment on above: IG% - Immature Granu locytes (promyelocytes, myelocytes and metamyelocytes) > 1% indicates that a LEFT SHIFT is Present. MCH (RBC) [Entitic mass] 31.7 pg 27.0-32.0 [facility] Nucleated RBC/100 WBC (Bld) [Ratio] 0 % 0-5 [facility] MCHC Auto (RBC) [Mass/Vol]Or dered By: Jethro Ch on 08-05-2023 MCHC (RBC) [Mass/Vol] 35.6 g/dL 32-36 [facility] No Panel InformationOrdered By: Jethro Ch on 08-05-2023 Estimated GFR (MDRD) Amer 82 mL/min >60 [facility] Comment on above: GFR Calc Estimated GFR (MDRD) Non-Af Amer 67 mL/min >60 [facility] Comment on above: Non- GFR Calc Thyroid Stimulating Hormone (TSH) 1.98 uIU/mL 0.358-3.74 [facility] Platelets bldOrdered By: Jethro Ch on 08-05-2023 Platelets (Bld) [#/Vol] 231 10*3/uL 150-450 [facility] Serum or plasma calcium rosana urement (mass/volume)Ordered By: Jethro Ch on 08-05-2023 Calcium [Mass/Vol] 9.1 mg/dL 8.5-10.1 [facility] Serum or plasma creatinine m easurement (mass/volume)Ordered By: Jethro hC on 08-05-2023 Creatinine [Mass/Vol] 1.11 mg/dL 0.70-1.30 [facility] Comment on above: The validity of the calculated GFR & GFRAA in patients over 70 years has not been determined. Clinical correlation is essential. Serum or plasma urea nitroge n measurement (mass/volume)Ordered By: Jethro Ch on 08-05-2023 Urea nitrogen [Mass/Vol] 15 mg/dL 7-18 [facility] Thin prep Papanicolaou smear with manual screeningOrdered By: Jethro Ch on 08-05-2023 Thin prep Papanicolaou smear with manual screening 4 5-15 [facility] Laboratory - Chemistry and C hemistry - challengeOrdered By: Robson Guzman on 06-12-2023 Free T4 [Mass/Vol] 1.44 ng/dL 0.76-1.46 [facility] No Panel InformationOrdered By: Robson Guzman on 06-12-2023 Thyroid Stimulating Hormone (TSH) 0.86 uIU/mL 0.358-3.74 [facility] Absolute lymphocyte countOrd ered By: Jose Antonio Martinez on 04-28-2023 Lymphocytes Auto (Unsp spec) [#/Vol] 1.70 10*3/uL 0.83-4.51 [facility] Amorphous sediment detection in urine sediment by light microscopyOrdered By: Jose Antonio Martinez on 04-28-2023 Amorphous sediment LM Ql (Urine sed) 1+ URATE [facility] Basophil percentageOrdered B y: Jose Antonio Martinez on 04-28-2023 Basophil percentage 10-25 SEEN /hpf 0-5 [facility] Basophils/100 WBC (Bld) 0.9 % 0-1 [facility] Chloride [Moles/Vol] 113 mmol/L 98-107 [facility] Eosinophils/100 WBC (Bld) 4.0 % 0-5 [facility] Glucose [Mass/Vol] 98 mg/dL 74-106 [facility] Neutrophils (Bld) [#/Vol] 3.2 10*3/uL 2.0-7.7 [facility] Neutrophils/100 WBC (Bld) 56.1 % 47-70 [facility] Potassium [Moles/Vol] 3.6 mmol/L 3.5-5.1 [facility] Sodium [Moles/Vol] 144 mmol/L 136-145 [facility] WBC (Bld) [#/Vol] 5.8 10*3/uL 4.4-11.0 [facility] Bilirubin Test strip Ql (U)O rdered By: Jose Antonio Martinez on 04-28-2023 Bilirubin Ql (U) Negative Negative [facility] Blood erythrocytes count (nu mber/volume)Ordered By: Jose Antonio Martinez on 04-28-2023 RBC (Bld) [#/Vol] 4.15 10*6/uL 4.6-6.2 [facility] Blood hemoglobin measurement (mass/volume)Ordered By: Jose Antonio Martinez on 04-28-2023 Hemoglobin (Bld) [Mass/Vol] 13.4 g/dL 13.0-16.5 [facility] Blood lymphocytes/100 leukoc ytesOrdered By: Jose Antonio Martinez on 04-28-2023 Lymphocytes/100 WBC (Bld) 29.6 % 19-41 [facility] Blood monocytes/100 leukocyt esOrdered By: Jose Antonio Martinez on 04-28-2023 Monocytes/100 WBC (Bld) 9.2 % 0-10 [facility] Blood platelet mean volumeOr dered By: Jose Antonio Martinez on 04-28-2023 Platelet mean volume (Bld) [Entitic vol] 9.0 fL 6.2-12.0 [facility] Determination of erythrocyte mean corpuscular volume (MCV)Ordered By: Jose Antonio Martinez on 04-28-2023 MCV (RBC) [Entitic vol] 90.1 fL 80-94 [facility] Hematocrit Auto (Bld) [Volum e fraction]Ordered By: Jose Antonio Martinez on 04-28-2023 Hematocrit (Bld) [Volume fraction] 37.4 % 40-54 [facility] Ketones Test strip Ql (U)Ord ered By: Jose Antonio Martinez on 04-28-2023 Ketones Ql (U) Negative Negative [facility] Laboratory - Chemistry and C hemistry - challengeOrdered By: Jose Antonio Martinez on 04-28-2023 CO2 [Moles/Vol] 21.0 mmol/L 21.0-32.0 [facility] Urea nitrogen/Creatinine [Mass ratio] 13.3 mg/mg 10-20 [facility] Laboratory - Hematology and Cell countsOrdered By: Jose Antonio Martinez on 04-28-2023 Erythrocyte distribution width (RBC) [Entitic vol] 44.4 fL 35.1-43.9 [facility] Erythrocyte distribution width (RBC) [Ratio] 13.4 % 11.6-14.6 [facility] Immature granulocytes/100 WBC (Bld) 0.200 % 0.0-0.9 [facility] Comment on above: IG% - Immature Granu locytes (promyelocytes, myelocytes and metamyelocytes) > 1% indicates that a LEFT SHIFT is Present. MCH (RBC) [Entitic mass] 32.3 pg 27.0-32.0 [facility] Nucleated RBC/100 WBC (Bld) [Ratio] 0 % 0-5 [facility] MCHC Auto (RBC) [Mass/Vol]Or dered By: Jose Antonio Martinez on 04-28-2023 MCHC (RBC) [Mass/Vol] 35.8 g/dL 32-36 [facility] Mucus LM Ql (Urine sed)Order ed By: Jose Antonio Martinez on 04-28-2023 Mucus Ql (Urine sed) 0 SEEN /hpf [facility] Nitrite Test strip Ql (U)Ord ered By: Jose Antonio Martinez on 04-28-2023 Nitrite Ql (U) Negative Negative [facility] No Panel InformationOrdered By: Jose Antonio Martinez on 04-28-2023 Troponin I High Sensitivity 57 pg/mL 3.0-78.0 [facility] Comment on above: Please Note: [place] Units and Gender Specific Reference Ranges. For more information see Policy Stat Procedure [place] High Sensitivity Troponin (TNIH) and attachments. Estimated GFR (MDRD) Amer 80 mL/min >60 [facility] Comment on above: GFR Calc Estimated GFR (MDRD) Non-Af Amer 66 mL/min >60 [facility] Comment on above: Non- GFR Calc Platelets bldOrdered By: Pushpa Martinez on 04-28-2023 Platelets (Bld) [#/Vol] 167 10*3/uL 150-450 [facility] Protein Test strip Ql (U)Ord ered By: Jose Antonio Martinez on 04-28-2023 Protein Ql (U) 30 mg/dl Negative [facility] Serum or plasma calcium rosana urement (mass/volume)Ordered By: Jose Antonio Martinez on 04-28-2023 Calcium [Mass/Vol] 8.6 mg/dL 8.5-10.1 [facility] Serum or plasma creatinine m easurement (mass/volume)Ordered By: Jose Antonio Martinez on 04-28-2023 Creatinine [Mass/Vol] 1.13 mg/dL 0.70-1.30 [facility] Comment on above: The validity of the calculated GFR & GFRAA in patients over 70 years has not been determined. Clinical correlation is essential. Serum or plasma urea nitroge n measurement (mass/volume)Ordered By: Jose Antonio Martinez on 04-28-2023 Urea nitrogen [Mass/Vol] 15 mg/dL 7-18 [facility] Squamous epithelial cells de tection in urine sediment by light microscopyOrdered By: Jose Antonio Martinez on 04-28-2023 Epithelial cells.squamous LM Ql (Urine sed) 0-5 SEEN /hpf 0-5 [facility] Thin prep Papanicolaou smear with manual screeningOrdered By: Jose Antonio Martinez on 04-28-2023 Thin prep Papanicolaou smear with manual screening 10 5-15 [facility] Urine blood detectionOrdered By: Jose Antonio Martinez on 04-28-2023 RBC Ql (U) 250 /ul Negative [facility] RBC Ql (U) 10-25 SEEN /hpf 0-5 [facility] Urine clarityOrdered By: Pushpa Martinez on 04-28-2023 Clarity (U) Sl. Cloudy Clear [facility] Urine color determinationOrd ered By: Jose Antonio Martinez on 04-28-2023 Color (U) Yellow Yellow [facility] Urine glucose detectionOrder ed By: Jose Antonio Martinez on 04-28-2023 Glucose Ql (U) Normal mg/dl Normal [facility] Urine leukocyte esterase det ection by dipstickOrdered By: Jose Antonio Martinez on 04-28-2023 Leukocyte esterase Test strip Ql (U) 100 /ul Negative [facility] Urine pHOrdered By: Jose Antonio kim on 04-28-2023 pH (U) 5.0 [pH] 5.0 - 8.0 [facility] Urine sediment bacteria coun t by microscopy (number/high power field)Ordered By: Jose Antonio Martinez on 04-28-2023 Bacteria LM.HPF (Urine sed) [#/Area] RARE /hpf None Seen [facility] Urine specific gravity measu rementOrdered By: Jose Antonio Martinez on 04-28-2023 Specific gravity (U) [Rel density] 1.010 1.002-1.03 0 [facility] Urobilinogen Auto test strip Ql (U)Ordered By: Jose Antonio Martinez on 04-28-2023 Urobilinogen Ql (U) Normal mg/dl Normal [facility] Culture, urineOrdered By: Dr Peg Murphy on 01-11-2023 Bacteria identified Cx Nom (U) Culture exhibits no growth. [facility] Basophil percentageOrdered B y: Dr. Guzman on 12-09-2022 Bilirubin [Mass/Vol] 1.70 mg/dL 0.20-1.00 [facility] Comment on above: For patients on eltr ombopag therapy, use of Dimension [place] TBIL is not recommended. Chloride [Moles/Vol] 110 mmol/L 98-107 [facility] Glucose [Mass/Vol] 99 mg/dL 74-106 [facility] Potassium [Moles/Vol] 4.3 mmol/L 3.5-5.1 [facility] Protein [Mass/Vol] 7.1 g/dL 6.4-8.2 [facility] Sodium [Moles/Vol] 143 mmol/L 136-145 [facility] WBC (Bld) [#/Vol] 5.1 10*3/uL 4.4-11.0 [facility] Blood erythrocytes count (nu mber/volume)Ordered By: Dr. Guzman on 12-09-2022 RBC (Bld) [#/Vol] 4.78 10*6/uL 4.6-6.2 [facility] Blood hemoglobin measurement (mass/volume)Ordered By: Dr. Guzman on 12-09-2022 Hemoglobin (Bld) [Mass/Vol] 14.9 g/dL 13.0-16.5 [facility] Blood platelet mean volumeOr dered By: Dr. Guzman on 12-09-2022 Platelet mean volume (Bld) [Entitic vol] 8.7 fL 6.2-12.0 [facility] Determination of erythrocyte mean corpuscular volume (MCV)Ordered By: Dr. Guzman on 12-09-2022 MCV (RBC) [Entitic vol] 90.4 fL 80-94 [facility] Hematocrit Auto (Bld) [Volum e fraction]Ordered By: Dr. Guzman on 12-09-2022 Hematocrit (Bld) [Volume fraction] 43.2 % 40-54 [facility] Laboratory - Chemistry and C hemistry - challengeOrdered By: Dr. Guzman on 12-09-2022 ALP [Catalytic activity/Vol] 98 U/L 45-117 [facility] ALT [Catalytic activity/Vol] 35 U/L 16-61 [facility] CO2 [Moles/Vol] 28.0 mmol/L 21.0-32.0 [facility] Free T4 [Mass/Vol] 1.04 ng/dL 0.76-1.46 [facility] Globulin (S) [Mass/Vol] 3.1 g/dL 2.2-4.2 [facility] Urea nitrogen/Creatinine [Mass ratio] 14.0 mg/mg 10-20 [facility] Laboratory - Hematology and Cell countsOrdered By: Dr. Guzman on 12-09-2022 Erythrocyte distribution width (RBC) [Entitic vol] 42.7 fL 35.1-43.9 [facility] Erythrocyte distribution width (RBC) [Ratio] 13.0 % 11.6-14.6 [facility] MCH (RBC) [Entitic mass] 31.2 pg 27.0-32.0 [facility] ([facility]BC) [Mass/Vol]Or dered By: Dr. Guzman on 12-09-2022 MCHC (RBC) [Mass/Vol] 34.5 g/dL 32-36 [facility] No Panel InformationOrdered By: Dr. Guzman on 12-09-2022 Estimated GFR (MDRD) Amer 110 mL/min >60 [facility] Comment on above: GFR Calc Estimated GFR (MDRD) Non-Af Amer 91 mL/min >60 [facility] Comment on above: Non- GFR Calc Prostate Specific Antigen Total 0.19 ng/mL 0.0-4.0 [facility] Comment on above: This test was perfor med using the TPSA assay method for [employer] chemistry system. Values obtained with differentassay methods cannot be used interchangably.When changing PSA assays in the course of monitoring apatient, additional sequential testing should be carriedout to confirm baseline values. Thyroid Stimulating Hormone (TSH) 1.38 uIU/mL 0.358-3.74 [facility] Platelets bldOrdered By: Dr. Guzman on 12-09-2022 Platelets (Bld) [#/Vol] 196 10*3/uL 150-450 [facility] Serum or plasma albumin rosana urement (mass/volume)Ordered By: Dr. Guzman on 12-09-2022 Albumin [Mass/Vol] 4.0 g/dL 3.2-5.0 [facility] Serum or plasma albumin/glob ulin mass ratioOrdered By: Dr. Guzman on 12-09-2022 Albumin/Globulin [Mass ratio] 1.3 {ratio} 0.9-2.4 [facility] Serum or plasma calcium rosana urement (mass/volume)Ordered By: Dr. Guzman on 12-09-2022 Calcium [Mass/Vol] 9.3 mg/dL 8.5-10.1 [facility] Serum or plasma creatinine m easurement (mass/volume)Ordered By: Dr. Guzman on 12-09-2022 Creatinine [Mass/Vol] 0.86 mg/dL 0.70-1.30 [facility] Comment on above: The validity of the calculated GFR & GFRAA in patients over 70 years has not been determined. Clinical correlation is essential. Serum or plasma urea nitroge n measurement (mass/volume)Ordered By: Dr. Guzman on 12-09-2022 Urea nitrogen [Mass/Vol] 12 mg/dL 7-18 [facility] Thin prep Papanicolaou smear with manual screeningOrdered By: Dr. Guzman on 12-09-2022 Thin prep Papanicolaou smear with manual screening 26 U/L 15- [facility] Thin prep Papanicolaou smear with manual screening 5 5-15 [facility] Culture, urineOrdered By: Dr Peg Murphy on 10-03-2022 Bacteria identified Cx Nom (U) Culture exhibits no growth. [facility] Basophil percentageon 2021 Bilirubin [Mass/Vol] 2.00 mg/dL 0.20-1.00 [facility] Work Phone: Comment on above: For patients on eltr ombopag therapy, use of Dimension [place] TBIL is not recommended. Chloride [Moles/Vol] 109 mmol/L 98-107 [facility] Work Phone: Cholesterol [Mass/Vol] 94 mg/dL <200 [facility] Work Phone: Comment on above: <200 mg/dL Desirable 200-240 mg/dL Borderline >240 mg/dL High Risk Glucose [Mass/Vol] 109 mg/dL 74-106 [facility] Work Phone: Comment on above: Fasting Glucose resu lt from 100 to 125 mg/dL suggests IMPAIRED HOMEOSTASIS per A.D.A. criteria. Potassium [Moles/Vol] 4.4 mmol/L 3.5-5.1 [facility] Work Phone: Protein [Mass/Vol] 7.1 g/dL 6.4-8.2 [facility] Work Phone: Sodium [Moles/Vol] 140 mmol/L 136-145 [facility] Work Phone: Triglyceride [Mass/Vol] 53 mg/dL [facility] Work Phone: Comment on above: The drugs N-Acetylcy steine and Metamizole may falsely depress this assay.Serum Triglycerides Reference Interval Normal <150 mg/dL Borderline high 150 - 199 mg/dL High 200 - 499 mg/dL Very High > or = 500 mg/dL Laboratory - Chemistry and C hemistry - challengeon 12-10-2021 ALP [Catalytic activity/Vol] 98 U/L 45-117 [facility] Work Phone: ALT [Catalytic activity/Vol] 31 U/L 16-61 [facility] Work Phone: [phone] CO2 [Moles/Vol] 22.0 mmol/L 21.0-32.0 [facility] Work Phone: Free T4 [Mass/Vol] 1.41 ng/dL 0.76-1.46 [facility] Work Phone: Globulin (S) [Mass/Vol] 3.1 g/dL 2.2-4.2 [facility] Work Phone: Urea nitrogen/Creatinine [Mass ratio] 19.8 mg/mg 10-20 [facility] Work Phone: No Panel Informationon 12-10 Estimated GFR (MDRD) Amer 97 mL/min >60 [facility] Work Phone: Comment on above: GFR Calc Estimated GFR (MDRD) Non-Af Amer 80 mL/min >60 [facility] Work Phone: Comment on above: Non- GFR Calc Thyroid Stimulating Hormone (TSH) 2.72 uIU/mL 0.358-3.74 [facility] Work Phone: Serum or plasma albumin rosana urement (mass/volume)on 12-10-2021 Albumin [Mass/Vol] 4.0 g/dL 3.2-5.0 [facility] Work Phone: Serum or plasma albumin/glob ulin mass ratioon 12-10-2021 Albumin/Globulin [Mass ratio] 1.3 {ratio} 0.9-2.4 [facility] Work Phone: Serum or plasma calcium rosana urement (mass/volume)on 12-10-2021 Calcium [Mass/Vol] 8.8 mg/dL 8.5-10.1 [facility] Work Phone: Serum or plasma cholesterol in HDL measurement (mass/volume)on 12-10-2021 Cholesterol in HDL [Mass/Vol] 45 mg/dL [facility] Work Phone: Comment on above: The drugs N-Acetylcy steine and Metamizole may falsely depress this assay. Reference Range HDL <40 mg/dL Low HDL Cholesterol HDL >or= 60 mg/dL High HDL Cholesterol Serum or plasma cholesterol in VLDL measurement (mass/volume)on 12-10-2021 Cholesterol in VLDL [Mass/Vol] 11 mg/dL 5-40 [facility] Work Phone: Serum or plasma creatinine m easurement (mass/volume)on 12-10-2021 Creatinine [Mass/Vol] 0.96 mg/dL 0.70-1.30 [facility] Work Phone: Comment on above: The validity of the calculated GFR & GFRAA in patients over 70 years has not been determined. Clinical correlation is essential. Serum or plasma low density lipoprotein (LDL) cholesterol measurement (mass/volume)on 12-10-2021 Cholesterol in LDL [Mass/Vol] 38 mg/dL 0-130 [facility] Work Phone: Serum or plasma urea nitroge n measurement (mass/volume)on 12-10-2021 Urea nitrogen [Mass/Vol] 19 mg/dL 7-18 [facility] Work Phone: Thin prep Papanicolaou smear with manual screeningon 12-10-2021 Thin prep Papanicolaou smear with manual screening 25 U/L 15-37 [facility] Work Phone: Thin prep Papanicolaou smear with manual screening 9 5-15 [facility] Work Phone: Absolute lymphocyte counton 11-23-2021 Lymphocytes Auto (Unsp spec) [#/Vol] 0.56 10*3/uL 0.83-4.51 [facility] Work Phone: Basophil percentageon 2021 Basophils/100 WBC (Bld) 0.1 % 0-1 [facility] Work Phone: Chloride [Moles/Vol] 111 mmol/L 98-107 [facility] Work Phone: Eosinophils/100 WBC (Bld) 0.0 % 0-5 [facility] Work Phone: Glucose [Mass/Vol] 141 mg/dL 74-106 [facility] [facility] Work Phone: Comment on above: Fasting Glucose resu lt greater than or equal to 126 mg/dL suggests DIABETES MELLITUS per A.D.A. criteria. Neutrophils (Bld) [#/Vol] 8.2 10*3/uL 2.0-7.7 [facility] Work Phone: Neutrophils/100 WBC (Bld) 84.2 % 47-70 [facility] Work Phone: Potassium [Moles/Vol] 4.0 mmol/L 3.5-5.1 [facility] Work Phone: Sodium [Moles/Vol] 139 mmol/L 136-145 [facility] Work Phone: WBC (Bld) [#/Vol] 9.8 10*3/uL 4.4-11.0 [facility] Work Phone: Blood erythrocytes count (nu mber/volume)on 11-23-2021 RBC (Bld) [#/Vol] 3.98 10*6/uL 4.6-6.2 [facility] Work Phone: Blood hemoglobin measurement (mass/volume)on 11-23-2021 Hemoglobin (Bld) [Mass/Vol] 12.4 g/dL 13.0-16.5 [facility] Work Phone: Blood lymphocytes/100 leukoc yteson 11-23-2021 Lymphocytes/100 WBC (Bld) 5.7 % 19-41 [facility] Work Phone: Blood manual differential co mment interpretation (narrative result)on 11-23-2021 Manual differential comment Regan (Bld) [Interp] SCANNED [facility] Work Phone: Comment on above: LYMPHOPENIA NOTED Blood monocytes/100 leukocyt eson 11-23-2021 Monocytes/100 WBC (Bld) 9.4 % 0-10 [facility] Work Phone: Blood platelet mean volumeon 11-23-2021 Platelet mean volume (Bld) [Entitic vol] 8.5 fL 6.2-12.0 [facility] Work Phone: Determination of erythrocyte mean corpuscular volume (MCV)on 11-23-2021 MCV (RBC) [Entitic vol] 88.7 fL 80-94 [facility] Work Phone: Hematocrit Auto (Bld) [Volum e fraction]on 11-23-2021 Hematocrit (Bld) [Volume fraction] 35.3 % 40-54 [facility] Work Phone: Laboratory - Chemistry and C hemistry - challengeon 11-23-2021 CO2 [Moles/Vol] 23.0 mmol/L 21.0-32.0 [facility] Work Phone: Urea nitrogen/Creatinine [Mass ratio] 15.9 mg/mg 10-20 [facility] Work Phone: Laboratory - Hematology and Cell countson 11-23-2021 Erythrocyte distribution width (RBC) [Entitic vol] 43.3 fL 35.1-43.9 [facility] Work Phone: Erythrocyte distribution width (RBC) [Ratio] 13.1 % 11.6-14.6 [facility] Work Phone: Immature granulocytes/100 WBC (Bld) 0.600 % 0.0-0.9 [facility] Work Phone: Comment on above: IG% - Immature Granu locytes (promyelocytes, myelocytes and metamyelocytes) > 1% indicates that a LEFT SHIFT is Present. MCH (RBC) [Entitic mass] 31.2 pg 27.0-32.0 [facility] Work Phone: Nucleated RBC/100 WBC (Bld) [Ratio] 0 % 0-5 [facility] Work Phone: MCHC Auto (RBC) [Mass/Vol]on 11-23-2021 MCHC (RBC) [Mass/Vol] 35.1 g/dL 32-36 [facility] Work Phone: No Panel Informationon 11-23 Estimated Creatinine Clearance Calc 64.04 ml/min [facility] Work Phone: Estimated GFR (MDRD) Amer 98 mL/min >60 [facility] Work Phone: Comment on above: GFR Calc Estimated GFR (MDRD) Non-Af Amer 81 mL/min >60 [facility] Work Phone: Comment on above: Non- GFR Calc Platelets bldon 11-23-2021 Platelets (Bld) [#/Vol] 183 10*3/uL 150-450 [facility] Work Phone: Serum or plasma calcium rosana urement (mass/volume)on 11-23-2021 Calcium [Mass/Vol] 8.3 mg/dL 8.5-10.1 [facility] Work Phone: Serum or plasma creatinine m easurement (mass/volume)on 11-23-2021 Creatinine [Mass/Vol] 0.95 mg/dL 0.70-1.30 [facility] Work Phone: Comment on above: The validity of the calculated GFR & GFRAA in patients over 70 years has not been determined. Clinical correlation is essential. Serum or plasma urea nitroge n measurement (mass/volume)on 11-23-2021 Urea nitrogen [Mass/Vol] 15 mg/dL 7-18 [facility] Work Phone: Thin prep Papanicolaou smear with manual screeningon 11-23-2021 Thin prep Papanicolaou smear with manual screening 5 5-15 [facility] Work Phone: Basophil percentageon 2021 Basophil percentage 0-5 [facility]EN [facility] Work Phone: Bilirubin [Mass/Vol] 1.90 mg/dL 0.20-1.00 [facility] Work Phone: Comment on above: For patients on eltr ombopag therapy, use of Dimension [place] TBIL is not recommended. Protein [Mass/Vol] 6.9 g/dL 6.4-8.2 [facility] Work Phone: Bilirubin Test strip Ql (U)o n 11-21-2021 Bilirubin Ql (U) Negative Negative [facility] Work Phone: Calcium oxalate crystals det ection in urine sediment by light microscopyon 11-21-2021 Calcium oxalate crystals LM Ql (Urine sed) 1+ /hpf [facility] Work Phone: Direct bilirubinon 2 Bilirubin.direct [Mass/Vol] 0.43 mg/dL 0.00-0.30 [facility] Work Phone: Ketones Test strip Ql (U)on 11-21-2021 Ketones Ql (U) Negative Negative [facility] Work Phone: Laboratory - Chemistry and C hemistry - challengeon 11-21-2021 ALP [Catalytic activity/Vol] 100 U/L 45-117 [facility] Work Phone: ALT [Catalytic activity/Vol] 28 U/L 16-61 [facility] Work Phone: Globulin (S) [Mass/Vol] 3.2 g/dL 2.2-4.2 [facility] Work Phone: Lipase [Catalytic activity/Vol] 100 U/L 73-393 [facility] Work Phone: Mucus LM Ql (Urine sed)on Mucus Ql (Urine sed) 0 SEEN /hpf [facility] Work Phone: Nitrite Test strip Ql (U)on 04-27-2022 Nitrite Ql (U) Negative Negative [facility] Work Phone: Protein Test strip Ql (U)on 11-21-2021 Protein Ql (U) Negative Negative [facility] Work Phone: Serum or plasma albumin rosana urement (mass/volume)on 11-21-2021 Albumin [Mass/Vol] 3.7 g/dL 3.2-5.0 [facility] Work Phone: Squamous epithelial cells de tection in urine sediment by light microscopyon 11-21-2021 Epithelial cells.squamous LM Ql (Urine sed) 0 SEEN /hpf [facility] Work Phone: Thin prep Papanicolaou smear with manual screeningon 11-21-2021 Thin prep Papanicolaou smear with manual screening 16 U/L 15-37 [facility] Work Phone: Urine blood detectionon 10-27 RBC Ql (U) 10 /ul Negative [facility] Work Phone: RBC Ql (U) 0 SEEN /hpf [facility] Work Phone: Urine clarityon 11-21-2021 Clarity (U) Clear Clear [facility] Work Phone: Urine color determinationon 11-21-2021 Color (U) Yellow Yellow [facility] Work Phone: Urine glucose detectionon Glucose Ql (U) Normal mg/dl Normal [facility] Work Phone: Urine leukocyte esterase det ection by dipstickon 11-21-2021 Leukocyte esterase Test strip Ql (U) 25 /ul Negative [facility] Work Phone: [phone] Urine pHon 11-21-2021 pH (U) 5.0 [pH] [facility] Work Phone: Urine sediment bacteria coun t by microscopy (number/high power field)on 11-21-2021 Bacteria LM.HPF (Urine sed) [#/Area] RARE /hpf None Seen [facility] Work Phone: Urine specific gravity measu rementon 11-21-2021 Specific gravity (U) [Rel density] 1.020 [facility] Work Phone: Urobilinogen Auto test strip Ql (U)on 11-21-2021 Urobilinogen Ql (U) Normal mg/dl Normal [facility] Work Phone: CNPTOUTREAJackien 08-20-2018 [facility] CHALORUDDY CABEZAS ([id number]) 1940 M Date Time Provider Department 08/20/18 KIMBERLY ROBERTS) [facility] During your visit today, we recorded the following information about you: Kimberly Roberts Ma 08/20/2018 3:37 PM Signed Patient's last office visit was 09/29/2017 and provider wanted to see him back in 6 months around 03/2018. Please call the patient to try to schedule a follow up appointment. Thanks. Kimberly Boland 08/20/2018 3:37 PM Signed Transfer out to [facility]. Angela Boland Allergies As of Date: 08/20/2018 (No Known Allergies) Date Reviewed: 09/29/2017 Reviewed by: Saray Michel Ma - Fully Assessed Reason for Visit: PHMA/Care Gap Outreach [[id number]] Prescriptions as of 08/20/2018 Sig: ISOSORBIDE MONONITRATE [...] Status:Closed by ANGELA BOLAND on 08/20/18 Normal [facility] PROGRESSon 08-20-2018 Protein mass conc HNO ID: [id number] Author: Angela Boland Service: (none) Author Type: (none) Type: Progress Notes Filed: 08/20/2018 3:37 PM Note Text: Transfer out to Dr. [facility]. Angela Boland Normal [facility] Protein mass conc HNO ID: [id number] Author: Kimberly Roberts Ma Service: (none) Author Type: (none) Type: Progress Notes Filed: 08/20/2018 3:37 PM Note Text: Patient's last office visit was 09/29/2017 and provider wanted to see him back in 6 months around 03/2018. Please call the patient to try to schedule a follow up appointment. Thanks. Kimberly Roberts Ma Normal [facility] Fecal Occult Bld Tston 10-12 Immuno FOB Negative Normal Negative [facility] Comment on above: Result Comment: This test was developed and its performance characteristics determined by [facility]'s Zak Castellano [facility] Pathology and Laboratory Medicine [place] [facility] It has not been cleared or approved by the FDA. [facility] is regulated under CLIA as qualified to perform high-complexity testing. This test is used for clinical purposes. It should not be regarded as investigational or for research. Performed By: #### I FOBT #### [place] [address] Basic Metabolic Panlon 09-29 Anion gap molar conc 13 mmol/L Normal 9-18 [facility] Comment on above: Performed By: #### B MP #### [place] [address] [place] [address] Calcium mass conc 8.9 mg/dL Normal 8.5-10.2 [facility] Comment on above: Performed By: #### B MP #### [place] [address] Chloride molar conc 109 mmol/L High 97-105 [facility] Comment on above: Performed By: #### B MP #### [place] [address] CO2 molar conc 24 mmol/L Normal 22-30 [facility] Comment on above: Performed By: #### B MP #### [place] [address] Creatinine mass conc 0.88 mg/dL Normal 0.73-1.22 [facility] Comment on above: Performed By: #### B MP #### [place] [address] [place] [address] eGFR- Amer. >60 Normal [facility] Comment on above: Performed By: #### B MP #### [place] [address] GFR/1.73 sq M predicted among non-blacks MDRD vol rate/area (S/P/Bld) mL/min/{1.73_m2} Normal [facility] Comment on above: Result Comment: eGFR (Estimated [...] GFR. Performed By: #### B MP #### [facility] [address] [place] [address] Glucose mass conc 99 mg/dL Normal 74-99 [facility] Comment on above: Result Comment: The [place] Diabetes Association (ADA) provides guidance for cutoff [...] Standards of Medical Care in Diabetes 2016, [place] Diabetes Association. Diabetes Care. 2016.39(Suppl 1). Performed By: #### B MP #### [facility] [address] [place] [address] Potassium molar conc 4.6 mmol/L Normal 3.7-5.1 [facility] Comment on above: Performed By: #### B MP #### [facility] [address] [place] [address] Sodium molar conc 146 mmol/L High 136-144 [facility] Comment on above: Performed By: #### B MP #### [facility] [address] [place] [address] Urea nitrogen mass conc 13 mg/dL Normal 9-24 [facility] Comment on above: Performed By: #### B MP #### [facility] [address] [place] [address] CNOVon 09-29-2017 CNOV Office Visit ([facility] ) RUDDY RANDOLPH ([id number]) 1940 M Date Time Provider Department 09/29/17 9:00 AM FABIOLA HARRIS [facility] During your visit today, we recorded [...] no compliance problems. Hypertensive end-organ damage includes CAD/PR. Review of Systems Constitutional: Negative. HENT: Negative. [...] METABOLIC PNL 2. Coronary artery disease involving sen[place] heart without angina pectoris, unspecified vessel or [...] [I10] Other Visit Diagnoses:Coronary artery disease involving sen[place] heart without angina pectoris, unspecified vessel or lesion type [I25.10] Acquired hypothyroidism [E03.9] Malignant neoplasm of urinary bladder, unspecified site (HCC) [C67.9] High cholesterol [E78.00] Screening for colon cancer [Z12.11] Order(s):BASIC METABOLIC PNL [SQBMP] Order #: [id number] FUTURE FECAL OCCULT BLOOD TEST [SQIFOBT] Order #: [id number] FUTURE desonide (DESOWEN) 0.05 % lotionAs directed, twice daily.Disp: 118 mLRfl: 2 BASIC METABOLIC PNL [SQBMP] Order #: [id number] Prescriptions as of 09/29/2017 Sig: DESONIDE 0.05 [...] by FABIOLA HARRIS MD on 09/29/17 Normal [facility] PROGRESSon 09-29-2017 Protein mass conc HNO ID: [id number] Author: Fabiola Harris Service: (none) Author Type: [...] no compliance problems. Hypertensive end-organ damage includes CAD/PR. Review of Systems Constitutional: Negative. HENT: Negative. [...] METABOLIC PNL 2. Coronary artery disease involving seneca-c[place] heart without angina pectoris, unspecified vessel or [...] FECAL OCCULT BLOOD TEST Fabiola Harris MD [facility] Vital Signs Date Time Vital Sign Value Performing Clinician Faci lity 05-19-2025 09:04-0400 Body height 177.[address] Tl Guzman MD Work Phone: [facility] 05-19-2025 09:04-0400 Body mass index (BMI) [Ratio] 21.1 kg/m2 Dr. Tl Guzman MD Work Phone: [facility] 05-19-2025 09:04-0400 Body weight 66.[address] Tl Guzman MD Work Phone: [facility] 05-19-2025 09:04-0400 Diastolic blood pressure 80 mm[Hg] Dr. Tl Guzman MD Work Phone: [facility] 05-19-2025 09:04-0400 Heart rate 61 /min Dr. Tl Guzman MD Work Phone: [facility] 05-19-2025 09:04-0400 Respiratory rate 16 /min Dr. Tl Guzman MD Work Phone: [facility] 05-19-2025 09:04-0400 Systolic blood pressure 149 mm[Hg] Dr. Tl Guzman MD Work Phone: [facility] 09-25-2024 09:00-0500 Body temperature 99.6 [degF] Dr. Tl Guzman MD Work Phone: 2(644)593-727363 [place] [address] 09-25-2024 09:00-0500 Diastolic blood pressure 77 mm[Hg] Dr. Tl Guzman MD Work Phone: 8(821)097-086114 [address] 09-25-2024 09:00-0500 Heart rate 92 /min Dr. Tl Guzman MD Work Phone: 2(540)305-975463 [place] [address] 09-25-2024 09:00-0500 Respiratory rate 16 /min Dr. Tl Guzman MD Work Phone: 4(165)886-285273 [place] [address] 09-25-2024 09:00-0500 SaO2% (BldA) [Mass fraction] 94 % Dr. Tl Guzman MD Work Phone: 6(673)499-111473 [place] [address] 09-25-2024 09:00-0500 Systolic blood pressure 158 mm[Hg] Dr. Tl Guzman MD Work Phone: 3(496)318-650373 [place] [address] 09-24-2024 18:37-0500 Inhaled oxygen flow rate 2 L/min Dr. Tl Guzman MD Work Phone: 6(076)475-620373 [place] [address] 09-24-2024 14:43-0500 Body height 177.[address] Tl Guzman MD Work Phone: 4(706)854-798373 [place] [address] 09-24-2024 14:43-0500 Body mass index (BMI) [Ratio] 21.5 kg/m2 Dr. Tl Guzman MD Work Phone: 5(275)681-638673 [place] [address] 09-24-2024 14:43-0500 Body weight 68.[address] Tl Guzman MD Work Phone: 0(398)291-814373 [place] [address] 09-24-2024 02:53-0500 Body temperature 98.3 [degF] Dr. Tl Guzman MD Work Phone: 8(714)040-665173 [place] [address] 09-24-2024 02:53-0500 Diastolic blood pressure 89 mm[Hg] Dr. Tl Guzman MD Work Phone: [facility] 09-24-2024 02:53-0500 Heart rate 77 /min Dr. Tl Guzman MD Work Phone: [facility] 09-24-2024 02:53-0500 Respiratory rate 18 /min Dr. Tl Guzman MD Work Phone: 4(497)234-613563 [place] [address] 09-24-2024 02:53-0500 SaO2% (BldA) [Mass fraction] 92 % Dr. Tl Guzman MD Work Phone: 8(009)773-949163 [place] [address] 09-24-2024 02:53-0500 Systolic blood pressure 188 mm[Hg] Dr. Tl Guzman MD Work Phone: 7(960)585-450214 [address] 09-23-2024 23:52-0500 Body mass index (BMI) [Ratio] 22.4 kg/m2 Dr. Tl Guzman MD Work Phone: 6(903)434-275263 [place] [address] 09-23-2024 23:52-0500 Body weight [address] Tl Guzman MD Work Phone: 1(363)032-794814 [address] 08-16-2023 09:00-0500 Body temperature 97.8 [degF] Dr. Robson Guzman Work Phone: 3(895)504-540863 [place] [address] 08-16-2023 09:00-0500 Diastolic blood pressure 82 mm[Hg] Dr. Robson Guzman Work Phone: [facility] 08-16-2023 09:00-0500 Heart rate 70 /min Dr. Robson Guzman Work Phone: 8(097)659-151963 [place] [address] 08-16-2023 09:00-0500 Respiratory rate 13 /min Dr. Robson Guzman Work Phone: [facility] 08-16-2023 09:00-0500 SaO2% (BldA) [Mass fraction] 100 % Dr. Robson Guzman Work Phone: 5(867)312-599963 [place] [address] 08-16-2023 09:00-0500 Systolic blood pressure 172 mm[Hg] Dr. Robson Guzman Work Phone: [facility] 08-15-2023 14:42-0500 Body height 177.[address] Robson Guzman Work Phone: [facility] 08-15-2023 14:42-0500 Body mass index (BMI) [Ratio] 21.5 kg/m2 Dr. Robson Guzman Work Phone: [facility] 08-15-2023 14:42-0500 Body weight 68.[address] Robson Guzman Work Phone: [facility] 08-15-2023 10:55-0500 Inhaled oxygen flow rate 6 L/min Dr. Robson Guzman Work Phone: [facility] 04-28-2023 20:09-0400 Diastolic blood pressure 86 mm[Hg] [facility] 04-28-2023 20:09-0400 Heart rate 65 /min [facility] 04-28-2023 20:09-0400 Respiratory rate 19 /min [facility] 04-28-2023 20:09-0400 SaO2% (BldA) [Mass fraction] 97 % [facility] 04-28-2023 20:09-0400 Systolic blood pressure 180 mm[Hg] [facility] 04-28-2023 15:11-0400 Body height 177.8 cm [facility] 04-28-2023 15:11-0400 Body temperature 98 [degF] [facility] 01-15-2023 16:56-0400 Body temperature 97.7 [degF] [facility] 01-15-2023 16:56-0400 Diastolic blood pressure 83 mm[Hg] [facility] 01-15-2023 16:56-0400 Heart rate 65 /min [facility] 01-15-2023 16:56-0400 Respiratory rate 18 /min [facility] 01-15-2023 16:56-0400 SaO2% (BldA) [Mass fraction] 98 % [facility] 01-15-2023 16:56-0400 Systolic blood pressure 159 mm[Hg] [facility] 01-15-2023 13:50-0400 Body height 177.8 cm [facility] 01-15-2023 13:50-0400 Body mass index (BMI) [Ratio] 23.2 kg/m2 [facility] 01-15-2023 13:50-0400 Body temperature 97.7 [degF] [facility] 01-15-2023 13:50-0400 Body weight 73.48 kg [facility] 01-15-2023 13:50-0400 Diastolic blood pressure 83 mm[Hg] [facility] 01-15-2023 13:50-0400 Heart rate 65 /min [facility] 01-15-2023 13:50-0400 Respiratory rate 18 /min [facility] 01-15-2023 13:50-0400 SaO2% (BldA) [Mass fraction] 98 % [facility] 01-15-2023 13:50-0400 Systolic blood pressure 159 mm[Hg] [facility] 11-23-2021 08:18-0400 Body temperature 97.6 [degF] Dr. Robson Guzman Work Phone: [facility] Work Phone: 11-23-2021 08:18-0400 Diastolic blood pressure 75 mm[Hg] Dr. Robson Guzman Work Phone: [facility] Work Phone: 11-23-2021 08:18-0400 Heart rate 71 /min Dr. Robson Guzman Work Phone: [facility] Work Phone: 11-23-2021 08:18-0400 Respiratory rate 16 /min Dr. Robson Guzman Work Phone: [facility] Work Phone: 11-23-2021 08:18-0400 SaO2% (BldA) [Mass fraction] 98 % Dr. Robson Guzman Work Phone: [facility] Work Phone: 11-23-2021 08:18-0400 Systolic blood pressure 149 mm[Hg] Dr. Robson Guzman Work Phone: [facility] Work Phone: 11-22-2021 06:30-0400 Body height 177.[address] Robson Guzman Work Phone: [facility] Work Phone: 11-22-2021 06:30-0400 Body mass index (BMI) [Ratio] 23.6 kg/m2 Dr. Robson Guzman Work Phone: [facility] Work Phone: 11-22-2021 06:30-0400 Body weight 74.[address] Robson Guzman Work Phone: [facility] Work Phone: 08-20-2021 07:54-0500 Body weight 76.[address] Robson Guzman Work Phone: [facility] Work Phone: 08-20-2021 07:54-0500 Diastolic blood pressure 82 mm[Hg] Dr. Robson Guzman Work Phone: [facility] Work Phone: 08-20-2021 07:54-0500 Heart rate 67 /min Dr. Robson Guzman Work Phone: [facility] Work Phone: 08-20-2021 07:54-0500 Respiratory rate 16 /min Dr. Robson Guzman Work Phone: [facility] Work Phone: 08-20-2021 07:54-0500 Systolic blood pressure 152 mm[Hg] Dr. Robson Guzman Work Phone: [facility] Work Phone: 02-19-2021 10:43-9783 Body mass index (BMI) [Ratio] 23.3 kg/m2 Dr. Robson Guzman Work Phone: [facility] Work Phone: Encounters Encounter Date Encounter Type Care Provider Facility Start: 05-19-2025 End: 05-19-[address] Allen Nelson MD -[facility] Work Phone: Start: 05-19-2025 End: 05-19-2025 ambulatory Allen Nelson Facility:[facility] Start: 11-03-2024 End: 11-03-[address] Tl Guzman MD Work Phone: [facility] Work Phone: Start: 11-03-2024 End: 11-03-[address] Tl Guzman MD -Laboratory, [facility] Start: 11-03-2024 End: 11-03-2024 ambulatory Tl Guzman Facility:[facility] Start: 10-26-2024 End: 10-26-[address] Tl Guzman MD Work Phone: [facility] Work Phone: Start: 10-26-2024 End: 10-26-2024 Patient encounter procedure Keiry Soto -Laboratory Work Phone: Start: 10-25-2024 End: 10-25-2024 Patient encounter procedure Tomas Khan DO -[facility] Work Phone: Start: 10-25-2024 End: 10-26-2024 ambulatory Keiry Soto Facility:[facility] Start: 10-05-2024 End: 10-05-[address] Tl Guzman MD Work Phone: [facility] Work Phone: Start: 10-05-2024 End: 10-05-[address] Tl Guzman MD -Laboratory, [facility] Start: 10-05-2024 End: 10-05-2024 ambulatory Tl Guzman Facility:[facility] Start: 09-25-2024 Non-patient / Non-visit Dr. Suresh Aranda DO -[facility] Work Phone: Start: 09-24-2024 Non-patient / Non-visit Tomas Bill [facility] Start: 09-24-2024 Non-patient / Non-visit Dr. Suresh Aranda DO -[facility] Work Phone: Start: 09-24-2024 End: 09-25-2024 ambulatory Suresh Aranda Facility:[facility] Start: 09-24-2024 End: 09-25-2024 Evaluation and management of inpatient Dr. Suresh Aranda DO -[facility] Work Phone: Start: 09-23-2024 End: 09-24-2024 Emergency department patient visit Austin Lauramarci [facility] -Emergency Department Work Phone: Start: 05-21-2024 End: 05-21-2024 ambulatory Tl Guzman Facility:[facility] Start: 01-01-[address] Tl Guzman MD Work Phone: [facility] Start: 01-01-[address] Tl Guzman MD Work Phone: [facility] Start: 10-14-2023 Non-patient / Non-visit Dr. Robson Guzman Work Phone: [facility] Start: 10-14-2023 End: 10-14-[address] Robson Guzman Work Phone: [facility] Work Phone: Start: 10-14-2023 End: 10-14-[address] Robson Guzman Work Phone: [facility] Work Phone: Start: 09-25-2023 End: 09-25-2023 Non-patient / Non-visit Dr. Robson Guzman Work Phone: [facility] Work Phone: Start: 09-25-2023 End: 09-25-[address] Robson Guzman Work Phone: [facility] Work Phone: Start: 09-25-2023 End: 09-25-[address] Robson Guzman Work Phone: [facility] [facility] Work Phone: Start: 09-15-2023 End: 09-15-[address] Robson Guzman Work Phone: [facility] Work Phone: Start: 09-15-2023 End: 09-15-[address] Robson Guzman Work Phone: [facility] Work Phone: Start: 08-15-2023 End: 08-16-2023 Evaluation and management of inpatient Dr. Robson Guzman Work Phone: [facility] 3 Work Phone: Start: 08-15-2023 End: 08-16-[address] Robson Guzman Work Phone: [facility] Work Phone: Start: 08-05-2023 End: 08-05-2023 Non-patient / Non-visit Dr. Robson Guzman Work Phone: [facility] Work Phone: Start: 06-12-2023 End: 06-12-2023 ambulatory [facility] Work Phone: Start: 06-12-2023 End: 06-12-2023 Patient encounter procedure [facility] Start: 04-28-2023 End: 04-28-2023 Emergency department patient visit [facility] Work Phone: Start: 01-15-2023 Admission to [facility] Start: 01-15-2023 ambulatory [facility] Work Phone: Start: 01-09-2023 End: 01-09-2023 ambulatory [facility] Work Phone: Start: 01-09-2023 End: 01-09-2023 Patient encounter procedure [facility]Laboratory, Specimen Start: 12-09-2022 End: 12-09-2022 Patient encounter procedure [facility], [facility] Start: 09-30-2022 End: 09-30-2022 ambulatory [facility] Work Phone: Start: 09-30-2022 End: 09-30-2022 Patient encounter procedure [facility], Specimen Start: 12-10-2021 End: 12-10-[address] Robson Guzman Work Phone: [facility] Start: 12-07-2021 End: 12-07-[address] Robson Guzman Work Phone: [facility] Start: 11-23-2021 Non-patient / Non-visit Dr. Robson Guzman Work Phone: [facility] Start: 11-22-2021 Non-patient / Non-visit Dr. Robson Guzman Work Phone: [facility] Start: 11-22-2021 End: 11-23-2021 Evaluation and management of inpatient Dr. Robson Guzman Work Phone: [facility]Pro[facility] Unit Start: 08-20-2021 End: 08-20-[address] Robson Guzman Work Phone: [facility] Start: 09-29-2017 End: 09-30-2017 Patient encounter procedure FABIOLA HARRIS [facility] Procedures Date Procedure Procedure Detail Performing Clinician [...] Activity Detail Author Start: 09-25-2024 Patient discharge [facility] Start: 09-24-2024 End: 09-24-2024 Following clinical pathway protocol [facility] Start: 09-24-2024 Referral to gastroenterology service [facility] Start: 09-24-2024 Ambulation without limitation [facility] Start: 09-24-2024 Assessment of risk of venous thromboembolism [facility] Start: 09-24-2024 Catheterization of vein [facility] Start: 09-24-2024 Inhalation therapy procedure [facility] Start: 09-24-2024 Insertion of catheter into peripheral vein [facility] Start: 09-24-2024 Oxygen therapy [facility] Start: 09-24-2024 Providing care according to standard [facility] Start: 09-24-2024 Speech therapy assessment [facility] Start: 09-24-2024 [facility] Start: 09-24-2024 Speech therapy assessment [facility] Start: 09-24-2024 Egd ablate tumor polyp/lesion w/dilation& wire EGD LESION ABLATION [facility] Start: 09-24-2024 Egd flexible foreign body removal EGD REMOVE FOREIGN BODY [facility] Start: 09-24-2024 Egd transoral biopsy single/multiple EGD BIOPSY SINGLE/MULTIPLE [facility] Start: 09-24-2024 Following clinical pathway protocol [facility] Start: 09-24-2024 Admission procedure [facility] Start: 09-24-2024 [facility] Start: 09-24-2024 End: 09-25-2024 [facility] Start: 08-16-2023 Patient discharge [facility] Start: 08-15-2023 Application of intermittent pneumatic compression device [facility] Start: 08-15-2023 Following clinical pathway protocol [facility] Start: 08-15-2023 Anesthesia transurethral resection of prostate ANESTH REMOVAL OF PROSTATE [facility] Start: 08-15-2023 Trurl rescj 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 [facility] Start: 08-15-2023 Deep breathing and coughing exercises [facility] Start: 08-15-2023 Irrigation of urinary bladder [facility] Start: 08-15-2023 Measuring intake and output [facility] Start: 08-15-2023 Patient education [facility] Start: 08-15-2023 Provision of activity privileges [facility] Start: 08-15-2023 Taking patient vital signs [facility] Start: 08-15-2023 Vital signs measurements [facility] Start: 08-15-2023 [facility] Start: 08-15-2023 Admission procedure [facility] Start: 08-15-2023 Patient referral to dietitian [facility] Start: 01-15-2023 Esophagogastroduodenoscopy EGD (MAC) (Not Applicable) [facility] Start: 01-15-2023 Catheterization of vein [facility] Start: 01-15-2023 [facility] Electrocardiographic procedure [facility] Patient Education [facility] Work Phone: Patient referral [facility] Work Phone: Immunizations Immunization Date Immunization Notes Care Provider Fa cility 04-28-2023 influenza, injectabl e, quadrivalent, preservative free Dr. Robson Guzman Work Phone: [facility] 08-01-2020 Covid (Moderna) Dr. Bigg Guzman Work Phone: [facility] 04-27-2018 influenza, injectabl e, quadrivalent, preservative free [facility] 04-27-2018 influenza, seasonal, injectable Dr. Robson Guzman Work Phone: [facility] Payers Date Payer Category Payer Self-pay [id number] 2024 Unknown [id number] 2009 Unknown [id number] 2006 Medicare [id number] Private Health Insurance 101 [id number] Unknown [id number] 2.16.8 [id number] Unknown [id number] 2.16.8 [id number] Unknown [id number] 2.16.8 [id number] Unknown [id number] 2.16.8 [id number] Unknown [id number] 2.16.8 [id number] Unknown [id number] 2.16.8 [id number] Unknown [id number] 2.16.8 [id number] Unknown [id number] 2.16.8 [id number] Unknown [id number] 2.16.8 [id number] Unknown [id number] 2.16.8 [id number] Unknown [id number] 2.16.8 [id number] Social History Date Type Detail Facility Start: 11-22-2021 End: 08-04-2023 Tobacco smoking status KSIS Unknown if ever smoked [facility] Start: 06-12-2019 Spouse/ Signif icant Other [facility] Start: 01-11-2020 Non-smoker [facility] Start: 1940 Sex Assigned At Male [facility] Start: 09-24-2024 End: 09-24-2024 Tobacco smoking status NHIS Ex-smoker (finding) [facility] Start: 10-15-2024 End: 11-09-2024 Sex Male (finding) [facility] Sex Male [facility] Medical Equipment Procedure Code Equipment Code Equipment Original Text Equipment Identifier Dates Robot-assisted laparoscopic radical prostatectomy Ligation clip, synthetic polymer, non-bioabsorbable [id number] FDA Start: 02-18-2024 Appendectomy, laparoscopic BUTTON SEWER,CLIP 5MM LIGAMAX FDA Start: 11-22-2021 Appendectomy, laparoscopic RELOAD,STD 45 [id number] FDA Start: 11-22-2021 Appendectomy, laparoscopic BUTTON SEWER,CLIP 5MM LIGAMAX FDA Start: 11-22-2021 Appendectomy, laparoscopic RELOAD,STD 45 [id number] FDA Start: 11-22-2021 Appendectomy, laparoscopic BUTTON SEWER,CLIP 5MM LIGAMAX FDA Start: 11-22-2021 Appendectomy, laparoscopic RELOAD,STD 45 [id number] FDA Start: 11-22-2021 Appendectomy, laparoscopic BUTTON SEWER,CLIP 5MM LIGAMAX FDA Start: 11-22-2021 Appendectomy, laparoscopic RELOAD,STD 45 [id number] FDA Start: 11-22-2021 Appendectomy, laparoscopic BUTTON SEWER,CLIP 5MM LIGAMAX FDA Start: 11-22-2021 Appendectomy, laparoscopic RELOAD,STD 45 [id number] FDA Start: 11-22-2021 Appendectomy, laparoscopic BUTTON SEWER,CLIP 5MM LIGAMAX FDA Start: 11-22-2021 Appendectomy, laparoscopic RELOAD,STD 45 [id number] FDA Start: 11-22-2021 Appendectomy, laparoscopic BUTTON SEWER,CLIP 5MM LIGAMAX FDA Start: 11-22-2021 Appendectomy, laparoscopic RELOAD,STD 45 [id number] FDA Start: 11-22-2021 Appendectomy, laparoscopic BUTTON SEWER,CLIP 5MM LIGAMAX FDA Start: 11-22-2021 Appendectomy, laparoscopic RELOAD,STD 45 [id number] FDA Start: 11-22-2021 Appendectomy, laparoscopic BUTTON SEWER,CLIP 5MM LIGAMAX FDA Start: 11-22-2021 Appendectomy, laparoscopic RELOAD,STD 45 [id number] FDA Start: 11-22-2021 Appendectomy, laparoscopic BUTTON SEWER,CLIP 5MM LIGAMAX FDA Start: 11-22-2021 Appendectomy, laparoscopic RELOAD,STD 45 [id number] FDA Start: 11-22-2021 Appendectomy, laparoscopic BUTTON SEWER,CLIP 5MM LIGAMAX FDA Start: 11-22-2021 Appendectomy, laparoscopic RELOAD,STD 45 [id number] FDA Start: 11-22-2021 Appendectomy, laparoscopic BUTTON SEWER,CLIP 5MM LIGAMAX FDA Start: 11-22-2021 Appendectomy, laparoscopic RELOAD,STD 45 [id number] FDA Start: 11-22-2021 Appendectomy, laparoscopic BUTTON SEWER,CLIP 5MM LIGAMAX FDA Start: 11-22-2021 Appendectomy, laparoscopic [...] Activity Abili ty With Assist of 1 [facility] Work Phone: 09-24-2024 Functional status Patient Activi ty Assist with Urinal [facility] Work Phone: 08-15-2023 Functional status Activity Ability Post O p [facility] Work Phone: 08-15-2023 Functional status Bedrest [facility] Work Phone: 11-23-2021 Functional status Ambulates [facility] Work Phone: Mental Status Date Assessment Result Facility 09-25-2024 Cognitive function Voice/Name [facility] Work Phone: 09-24-2024 Cognitive function Appropriate;Cooperativ e [facility] Work Phone: 09-24-2024 Cognitive function Level Of Cons ciousness Awake;Alert;Appropriate;Follow s Commands [facility] Work Phone: 08-16-2023 Cognitive function Level Of Cons ciousness Awake;Alert;Appropriate;Follow s Commands [facility] Work Phone: 08-15-2023 Cognitive function Voice/Name [facility] Work Phone: 04-28-2023 Cognitive function Level Of Cons ciousness Awake;Alert;Appropriate;Follow s Commands [facility] Work Phone: 01-15-2023 Cognitive function Level Of Cons ciousness Awake;Alert;Appropriate;Follow s Commands [facility] Work Phone: 11-23-2021 Cognitive function Level Of Cons ciousness Awake;Alert;Appropriate;Follow s Commands [facility] Work Phone: 11-23-2021 Cognitive function Touch/Shaking [facility] Work Phone: Clinical Notes 09-25-2000 to 05-19-2025 Note Date & Type Note Facility 05-19-2025 Progress note [facility] 09-25-2024 Note [facility] Medical Records Department [address] [place] [address] Discharge Summary 09/25/24 1209 MR#: [id number] Acct: [id number] Name: RUDDY RANDOLPH Rep #: [id number] : 1940 84 From: Suresh Aranda DO PCP: Dr. Tl Guzman MD Status:ADM COLE [id number] Prov[facility] Date of Admission: 09/24/24 Date of Discharge: 09/25/24 Primary Care Physician: Dr. Tl Guzman MD Consultations 09/24/24 17:15 Consult: Gastroenterology Routine Consulting Provider: [facility] Reason for Consult: Possible esophageal stricture [...] white male presented to the emergency room [facility] for evaluation of confusion and elevated temperature at home. He had been seen the night before in the emergency room at [facility] after he had choked on some [...] Microbiology Data 09/25 (more content not included)... [facility] 09-24-2024 Evaluation note Diagnosis Onset Date Resolution Altered mental state inactive Febr uary 2024 1:02pm Aspiration into airway inactive Fe bruary 2024 1:02pm Hypoxia inactive September 24, 2024 1:02pm [facility] Work Phone: 1(550) 989-805802-28-2025 Evaluation note* Diagnosis Onset Date Resolution Status Admit Date Altered mental state inactive Febr uary 2024 1:02pm Aspiration into airway inactive Fe bruary 2024 1:02pm Hypoxia inactive September 24, 2024 1:02pm Dysphagia acute October 25 7:52am [facility] Work Phone: 1(681) 792-120501-20-2024 Progress note Author Erasto Murphy [facility] August 16, 2023 8:50am Note Date/Time August 16, 2023 8 :51am [facility] Medical Records Department [address] [place] [address] Progress Note - Urology 08/16/23849 MR#: [id number] Acct: [id number] Name: RUDDY RANDOLPH Rep #:[id number] : 1940 83 From: Erasto Murphy MD PCP: Dr. Robson Guzman MD Status: ADM COLE Location: [facility] [id number] Subjective Subjective Status post incision and opening [...] Cosigner Signature (if applicable): CC: ~ Signed [facility] Work Phone: 1(772) 802-172501-19-2024 Discharge summary Author Erasto Murphy [facility] August 15, 2023 12:20pm Note Date/Time August 15, 2023 1 0:34am [facility] Medical Records Department [address] [place] [address] Instructions for Home/Discharge Instructions 08/15/23 1034 MR#: [id number] Acct: [id number] Name: RUDDY RANDOLPH Rep #:[id number] : 1940 83 From: Erasto Murphy MD PCP: Dr. Robson Guzman MD Status[place] [facility] Discharge Instructions Diet Discharge Diet: No restrictions Activity Discharge Activity: Return to Normal Activity and May Not Drive (while taking narcotic pain medications.) Dressing / Incision Call your doctor if you observe: Fever of 101 or Higher Follow Up Care Please Follow Up With: Erasto Murphy MD When: Call [phone] for an appointment Test Results: Test results [...] CC: Dr. Robson Guzman MD ~ Signed [facility] Work Phone: 1(137) 591-176101-19-2024 History and physical note Author Erasto Murphy [facility] August 15, 2023 9:49am Note Date/Time August 15, 2023 9 :49am [facility] Medical Records Department [address] [address] History & Physical Exam 08/15/23 0949 MR#: [id number] Acct: [id number] Name: RUDDY RANDOLPH Rep #:[id number] : 1940 83 From: Erasto Murphy MD PCP: Dr. Robson Guzman MD Status: [facility] Location: [address] - General HPI Narrative RUDDY RANDOLPH, is a 83 M who presents for resection of a bladder neck contracture also a diagnostic cystoscopy to check a bladder. [facility] Medical History (Updated 08/04/23 @ 14:39 by Conrado De Los Santos) Alcohol use Atherosclerotic heart disease of [place] coronary artery without angina pectoris Bladder cancer [...] Guzman MD; Dr. 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, chronic Presence of stent in coronary artery May, chronic Pure hypercholesterolemia ch ronic Essential hypertension chron ic Acute appendicitis resolved Acute appendicitis resolved [facility] Work Phone: 1(946) 443-198303-01-2001 Evaluation note* Diagnosis Onset Date Resolution Status Admit Date Essential hypertension chronic Oc tober 2024 8:51am Presence of aortocoronary by pass graft September, chronic May 19 8:51am Presence of stent in coronar y artery May, chronic May 19 8:51am Pure hypercholesterolemia chronic May 19, 2025 8:51am [facility] Work Phone: Evaluation noteNo assessment information available [facility] Work Phone: Progress note Author Allen Nelson [facility] Note Date/Time May 19, 2025 1 0:14am [facility] [place] [address] OFFICE VISIT Date of Service: 05/19/25 MR#: [id number] Acct: [id number] Name: RUDDY RANDOLPH Rep #: [id number] : 1940 Provider: Dr. Cheo Nelson MD Age/Sex: 85/M Location: [facility] Status: Signed HPI HPI History of Present Illness Details: This is a 85-year-old white male who presents today for outpatient cardiovascular follow-up regarding a history of underlying CAD, PCI in 06/26/2018, CABG (SLOAN to the LAD, SVG to the diagonal branch, SVG to the RCA [id number]), superimposed upon hyperlipidemia and hypertension. 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 CIRCUMFLEX ARTERY: Medium size [...] have right to right collateral flow and [id number] collateral flow. Overall, he states feeling well. He is active without symptoms. We will continue to monitor. (2) Presence of stent in coronary artery: Status: Chronic Comment: PTCA/Stent x3 of the prox,mid,distal RCA 09/07/01 @ [place]; PCI/CHANDAN to the mid D1 06/26/18 Plan: [...] applicable) CC: Dr. Tl Guzman MD ~ [facility] Work Phone: Reason for referral (narrative)No reason for [facility] Work Phone: Summary Purpose Family History Relationship Condition Age at Onset Recorded Date/T juanpablo father Coronary artery disease Unknown Myocardial infarction 56 grandmother Cardiac disease Unknown uncle Cardiac disease Unknown Advance Directives Advance Directive Response Recorded Date/ Time Advance Directives Yes May 8:49am Living Will Yes November 22, 2021 1:36am Power of Straddle Truck Operator Yes November 22 1:36am Advance Directive Response Recorded Date/ Time Advance Directives Yes May 8:49am Living Will Yes March 06 12:33pm Power of Straddle Truck Operator Yes March 06 12:33pm Advance Directive Response Recorded Date/ Time Name of Medical Power of Straddle Truck Operator SPOUSE January 15, 2023 2:03pm Advance Directives Yes May 8:49am Living Will Yes January 15, 2023 2:03pm Power of Straddle Truck Operator Yes January 15 2:03pm Advance Directive Response Recorded Date/ Time Advance Directives Yes May 7:49am Living Will No April 28 2:14pm Power of Straddle Truck Operator No April 28 2:14pm Advance Directive Response Recorded Date/ Time Name of Medical Power of Straddle Truck Operator Cara hernández August 15, 2023 2:42pm Advance Directives Yes May 7:49am Living Will Yes August 15 2:42pm Power of Straddle Truck Operator Yes August 15, 2023 2:42pm Advance Directive Response Recorded Date/ Time Name of Medical Power of Straddle Truck Operator Cara hernández August 15, 2023 3:42pm Advance Directives Yes May 8:49am Living Will Yes August 15 3:42pm Power of Straddle Truck Operator Yes August 15, 2023 3:42pm Advance Directive Response Recorded Date/ Time Living Will Yes September 24, 2 025 2:17am Do you have a Healthcare Pow er of Straddle Truck Operator? Yes September 24, 2024 2:17am Name of Medical Power of Straddle Truck Operator September 24, 2024 2:17am Living Will Yes September 24 025 3:43pm Do you have a Healthcare Pow er of Straddle Truck Operator? Yes September 24, 2024 3:43pm Name of Medical Power of Straddle Truck Operator Cara hernández September 24, 2024 3:43pm Advance Directives No January 11 7:07am Advance Directive Response Recorded Date/ Time Living Will Yes February 20, 2024 12:59am Do you have a Healthcare Power of Straddle Truck Operator? Yes February 20, 2024 12:59am Advance Directives No January 11 6:07am Chief Complaint and Reason for Visit Chief Complaint 6 m fu ACUTE APPENDICITIS ACUTE APPENDICITIS ACUTE APPENDICITIS APPENDIX REMOVAL 11/22 Reason for Visit Atherosclerotic hear t disease of [place] coronary artery without angina pectoris Essential hypertension [...] section and content) DATE CREATED AUTHOR 08/30/2018 [facility] DATE CREATED AUTHOR 'S LAITH ATJAMESON 05/20/2025 [facility] Goals (unrecognized section and [...] Status: Active Member Role Status Dates Dr. oRbson Guzman MD Primary Care Provider, Refe rring [...] Active Start: September 25, 2024 Dr. Suresh rAanda , DO Admit Provider Active S tart: [...] 26, 2024 End: October 26, 2024 Keiry Woodlawn Attending Provider Active Start : October 26, 2024 End: October 26, 2024 Keiry Woodlawn Referring Provider Active Start : October 26, [...] BE BASED ON THE PRIMARY CLINICAL RECORDS. [facility] [employer] [facility]. provides no warranty or guarantee of the accuracy or completeness of information in this document.
[2025-06-27 10:44] LABS: Anion Gap 10 (5-15); BUN 37 mg/dL (4-19); BUN/Creat Ratio 12.7 RATIO (10-20); Calcium,Total 9.1 mg/dL (7.6-11.0); Carbon Dioxide 21.4 mmol/L (21.0-32.0); Chloride 106 mmol/L (98-108); Glucose 97 mg/dL (70-99); Potassium 5.1 mmol/L (3.3-5.1)
== END | disposition home or self-care (01) ==
LOC: MFPLAB 08:09
PROVIDERS: PCP Family Medicine; Visit Provider Family Medicine
DX: N18.30 Chronic kidney disease, stage 3 unspecified (principal)
CPT/HCPCS: 36415; 80048

== ENCOUNTER → 2025-07-04 | Outpatient (CLI) | payer MEDICARE, SELFPAY ==
[2025-07-04 11:10] LABS: Anion Gap 10 (5-15); BUN 39 mg/dL (4-19); BUN/Creat Ratio 12.1 RATIO (10-20); Calcium,Total 9.2 mg/dL (7.6-11.0); Carbon Dioxide 21.5 mmol/L (21.0-32.0); Chloride 106 mmol/L (98-108); Glucose 98 mg/dL (70-99); Potassium 5.0 mmol/L (3.3-5.1)
== END | disposition home or self-care (01) ==
LOC: MFPLAB 08:20
PROVIDERS: PCP Family Medicine; Visit Provider Family Medicine
DX: N18.30 Chronic kidney disease, stage 3 unspecified (principal)
CPT/HCPCS: 36415; 80048

== ENCOUNTER → 2025-07-11 | Outpatient (CLI) | payer MEDICARE, SELFPAY ==
[2025-07-11 08:23] LABS: Mucous, Urine 0 SEEN /hpf (<or=2+)
[2025-07-11 10:47] LABS: Color, Urine Straw (Yellow); Glucose, Dipstick Normal (Normal); Ketone-Dipstick Negative (Negative); Leukocyte Esterase-Dipstick 500 /ul (Negative); Nitrite-Dipstick Negative (Negative); Occult Blood-Urine 250 /ul (Negative); Protein-Dipstick 30 mg/dl (Negative); Specific Gravity, Urine 1.010 (1.002-1.030); Urine Bilirubin Dipstick Negative (Negative)
[2025-07-11 11:20] LABS: Anion Gap 10 (5-15); BUN 42 mg/dL (4-19); BUN/Creat Ratio 13.0 RATIO (10-20); Calcium,Total 9.2 mg/dL (7.6-11.0); Carbon Dioxide 20.3 mmol/L (21.0-32.0); Chloride 107 mmol/L (98-108); Glucose 102 mg/dL (70-99); Potassium 5.2 mmol/L (3.3-5.1)
[2025-07-11 11:21] LABS: Red Blood Cells-Urine 10-25 SEEN /hpf (0-5); Squamous Epithelial Cells - UA 0-5 SEEN /hpf (0-5)
== END | disposition home or self-care (01) ==
LOC: MTLAB 08:19
PROVIDERS: PCP Family Medicine; Referring Provider Family Medicine; Visit Provider Family Medicine
DX: N18.30 Chronic kidney disease, stage 3 unspecified (principal); E03.9 Hypothyroidism, unspecified
CPT/HCPCS: 36415; 80048; 81001; 84443

== ENCOUNTER → 2025-07-18 | Outpatient (CLI) | payer MEDICARE, SELFPAY ==
[2025-07-18 10:53] LABS: Anion Gap 11 (5-15); BUN 45 mg/dL (4-19); BUN/Creat Ratio 13.2 RATIO (10-20); Calcium,Total 8.8 mg/dL (7.6-11.0); Carbon Dioxide 19.7 mmol/L (21.0-32.0); Chloride 106 mmol/L (98-108); Glucose 102 mg/dL (70-99); Potassium 5.0 mmol/L (3.3-5.1)
== END | disposition home or self-care (01) ==
LOC: MFPLAB 08:09
PROVIDERS: PCP Family Medicine; Visit Provider Family Medicine
DX: N18.30 Chronic kidney disease, stage 3 unspecified (principal)
CPT/HCPCS: 36415; 80048